=== PATIENT | female | born 1965 | race Caucasian/White ===

== ENCOUNTER → 2018-02-13 | Outpatient (CLI) | payer SELFPAY ==
[~2018-02-13] MED LIST: GBPN400C PO; HYDR-91 PO; HYDR118S10 PO; HYOS0.1216 PO; MELO-195 PO; NITR100C3 PO; PHEN200T27 PO; TRAM50TA2 PO
--- NOTE | 2018-02-13 12:52 | Diagnostic Imaging Report ---
PROCEDURE: MRI lumbar spine. TECHNIQUE: Multiplanar, multisequence MRI of the lumbar spine was performed without contrast. INDICATION: Chronic low back pain and bilateral leg pain with numbness and tingling. FINDINGS: There is some straightening of the normal lumbar lordosis. The vertebral body heights are well maintained. There is no spondylolysis or spondylolisthesis. No fractures are identified. Conus medullaris is seen at L1 and is normal in appearance. T12-L1 disc is unremarkable. At L1-L2, there is loss of disc height and signal intensity with some minimal annular bulging. There is slight effacement of the ventral thecal sac; however, no significant neuroforaminal encroachment. The L2-L3 disc is normal in height, signal intensity, and morphology. At L3-L4, there is slight loss of disc height and signal intensity with some minimal annular bulging. There is slight effacement of the ventral thecal sac and some minimal neuroforaminal encroachment. At L4-L5, there is broad-based annular bulging, facet disease, and thickening of the ligamentum flavum. There is some mild central spinal stenosis with some encroachment upon the lateral recess bilaterally. There is moderate right and mild left neuroforaminal encroachment. At L5-S1, there is broad-based annular bulging slightly more prominent in a left lateral distribution. There is encroachment upon the left lateral recess. There is mild right neuroforaminal encroachment and [id number] left neuroforaminal encroachment. The abdominal aorta is nonaneurysmal. The kidneys are unremarkable. IMPRESSION: Mild lumbar spondylosis and degenerative disc disease as detailed above. Dictated by: Dictated on workstation # [id number]
== END ==
LOC: RAD 10:55
PROVIDERS: ATTEND Nurse Practitioner Family
DX: M48.061 Spinal stenosis, lumbar region without neurogenic claudication (principal); M51.27 Other intervertebral disc displacement, lumbosacral region; M51.36 Other intervertebral disc degeneration, lumbar region
CPT/HCPCS: 72148

== ENCOUNTER → 2019-08-18 | Outpatient (CLI) | payer SELFPAY ==
--- NOTE | 2019-08-18 18:03 | Diagnostic Imaging Report ---
INDICATION: Chest pain. COMPARISON: None. FINDINGS: Frontal and lateral views of the chest demonstrate clear lungs bilaterally. The heart is normal. There is no pneumothorax. The osseous structures are age-appropriate. IMPRESSION: Negative chest. Dictated by: Dictated on workstation # [id number]
== END ==
LOC: RAD FS 17:10
PROVIDERS: ATTEND Nurse Practitioner Family
DX: R07.89 Other chest pain (principal)
CPT/HCPCS: 71046

== ENCOUNTER → 2019-11-13 | Outpatient (CLI) | payer BC ==
[~2019-11-13] MED LIST changes: +CATHETER FLUSH 10 ML SYR IV PRN; +HOLD METFORMIN - RECEIVED CONTRAST 20 ML VIAL IV SCH; +IOHEXOL 350 MG/ML 100 ML (OMNIPAQUE 350) VIAL IV ONE; +NS 100 ML (IVPB) BAG IV ONE
[2019-11-13 08:49] LABS: BUN/CREATININE RATIO 20; CARBON DIOXIDE 27 MMOL/L (21-32); CHLORIDE 104 MMOL/L (98-107); CREATININE SERUM 0.65 MG/DL (0.60-1.30); GFR ESTIMATED > 60; GLUCOSE 89 MG/DL (70-105); POTASSIUM 4.4 MMOL/L (3.6-5.0); SODIUM 141 MMOL/L (135-145)
--- NOTE | 2019-11-13 09:51 | Diagnostic Imaging Report ---
PROCEDURE: CT neck soft tissue with contrast. TECHNIQUE: Multiple contiguous axial images were obtained through the neck after the administration of contrast. Auto Exposure Controls were utilized during the CT exam to meet ALARA standards for radiation dose reduction. INDICATION: Palpable lump on the left side of neck in the submandibular region. COMPARISON: None available. FINDINGS: The bilateral parotid and submandibular glands are normal in appearance. Specifically, there is no surrounding inflammation or enlargement of the submandibular gland that would suggest sialoadenitis. There are no stones along the course of the salivary ducts to suggest sialolithiasis. Thyroid gland is normal in appearance. No cervical lymphadenopathy. There are a few subcentimeter level 1B (submandibular) lymph nodes which are likely physiologic/reactive in nature. The nasopharynx and uvula are normal in appearance. No mass within the base of the tongue. The oropharyngeal airway is normal in appearance. Hypopharynx is also unremarkable. No thickening of the epiglottis or aryepiglottic folds. The vocal folds are symmetric. Visualized aspects of the lung apices show centrilobular emphysema. No acute or concerning focal osseous lesion in the cervical spine. The patient is edentulous. No space-occupying mass or hydrocephalus within the visualized aspects of brain. Paranasal sinuses and mastoid air cells are clear. IMPRESSION: 1. No features of sialoadenitis or sialolithiasis of the submandibular gland. 2. No cervical lymphadenopathy or concerning soft tissue mass. 3. Emphysema. Dictated by: Dictated on workstation # [id number]
== END ==
LOC: RAD FS 08:01
PROVIDERS: ATTEND Pediatrics
DX: J43.9 Emphysema, unspecified (principal); R22.1 Localized swelling, mass and lump, neck
CPT/HCPCS: 36415; 70491; 80048

== ENCOUNTER → 2020-01-12 | Outpatient (CLI) | payer OTHER ==
[~2020-01-12] MED LIST changes: -CATHETER FLUSH 10 ML SYR IV PRN; -HOLD METFORMIN - RECEIVED CONTRAST 20 ML VIAL IV SCH; -IOHEXOL 350 MG/ML 100 ML (OMNIPAQUE 350) VIAL IV ONE; -NS 100 ML (IVPB) BAG IV ONE
--- NOTE | 2020-01-12 10:11 | Diagnostic Imaging Report ---
INDICATION: Right hand injury. 3 views of the right hand shows some soft tissue swelling over the dorsal aspect of the heads of the metatarsals. There is no fracture, dislocation or radiopaque foreign objects seen. IMPRESSION: Soft tissue swelling. No acute osseous abnormality seen. Dictated by: Dictated on workstation # [id number]
--- NOTE | 2020-01-12 10:12 | Diagnostic Imaging Report ---
Right wrist at 9:48. INDICATION: Injury, wrist pain. FINDINGS: 3 views were obtained. There are no prior studies available for comparison. There is no fracture, dislocation or acute bony abnormality evident. There is mild degenerative disease of the radiocarpal joint. The soft tissues are unremarkable. There is no sign of a radiopaque foreign body. IMPRESSION: There is no evidence for an acute bony abnormality. Dictated by: Dictated on workstation # [id number]
== END ==
LOC: RAD FS 09:38
PROVIDERS: ATTEND Nurse Practitioner
DX: S69.91XA Unspecified injury of right wrist, hand and finger(s), initial encounter (principal); X58.XXXA Exposure to other specified factors, initial encounter
CPT/HCPCS: 73110; 73130

== ENCOUNTER 2020-02-02 12:14 | Emergency (ER) | payer OTHER ==
[~2020-02-02] VITALS: Ht 160 cm; Wt 72.2 kg
[2020-02-02] MEDS ORDERED: LIDOCAINE 1% INJ 20 ML 20 ML VIAL INJ ONE (12:45)
--- NOTE | 2020-02-02 13:10 | Diagnostic Imaging Report ---
INDICATION: Traumatic injury to the finger. COMPARISON: 01/12/2020. FINDINGS: Three radiographic views of the right hand were obtained. There has been partial interval amputation of the distal third digit. This primarily involves the distal soft tissues, although there are small mildly displaced fracture fragments likely arising from the tuft of the distal phalanx. Joint spaces are maintained. No unexpected radiopaque foreign bodies are seen. IMPRESSION: 1. Partial amputation of the distal third digit with small mildly displaced fracture fragments of the distal phalanx. Dictated by: Dictated on workstation # [id number]
[2020-02-02] MEDS ORDERED: OXYC-464 (13:16)
[2020-02-02] MEDS ORDERED: celebrex (13:17)
[2020-02-02] MEDS ORDERED: LISI10TA2 (13:17)
--- NOTE | 2020-02-02 13:21 | ED Upper Extremity ---
General Chief Complaint: Trauma-Non Activation Stated Complaint: WC RT FINGER AMPUTATION Nursing Triage Note: Pt presents to ED from work reporting smashing injury 3rd digit right hand around 1215 at [employer]. Finger smashed in hydraulic punch press. Nursing Sepsis Screen: No Definite Risk Source: patient Exam Limitations: no limitations History of Present Illness Date Seen by Provider: Feb 02, 2020 Time Seen by Provider: 12:20 Initial Comments The pt is a 54 y/o female who presents for evaluation of a right third finger injury sustained at work. She states her hand was caught in a hydraulic punch press. The finger was in a glove at the time and is currently stuck in the glove. The pt reports being UTD with her tetanus. She has no other injuries or complaints. Location Injury Occurred: Pt injured at [employer] at work Severity: severe Pain/Injury Location: right 3rd finger Method of Injury: direct blow Allergies and Home Medications Allergies Coded Allergies: Penicillins (Unverified Allergy, HIVES, 01/12/13) Home Medications Gabapentin 400 Mg Cap, 400 MG PO DAILY, (Reported) Patient Home Medication List Home Medication List Reviewed: Yes Review of Systems Constitutional: no symptoms reported EENTM: no symptoms reported Respiratory: no symptoms reported Cardiovascular: no symptoms reported Gastrointestinal: no symptoms reported Genitourinary: no symptoms reported Musculoskeletal: other (right third finger partially amputated) Skin: no symptoms reported Psychiatric/Neurological: No Symptoms Reported All Other Systems Reviewed Negative Unless Noted: Yes Past Dyumset-Rpakjg-Elthun Hx Past Med/Social Hx: Reviewed Nursing Past Med/Soc Hx Patient Social History Alcohol Use: Denies Use Recreational Drug Use: No Smoking Status: Current Everyday Smoker Type Used: Cigarettes 2nd Hand Smoke Exposure: Yes Recent Foreign Travel: No Contact w/Someone Who Travel: No Recent Infectious Disease Expo: No Recent Hopitalizations: No Physical Abuse: No Sexual Abuse: No Mistreated: No Fear: No Immunizations Up To Date Tetanus Booster (TDap): Less than 5yrs Date of Influenza Vaccine: Sep 25, 2019 Seasonal Allergies Seasonal Allergies: No Past Medical History Surgeries: Yes (Partial Hyst) Hysterectomy, Tonsillectomy Respiratory: No Cardiac: No Neurological: No Reproductive Disorders: No Genitourinary: No Gastrointestinal: No Musculoskeletal: Yes (ARTHRITIS, FIBROMYALGIA) Endocrine: Yes Diabetes, Non-Insulin dep HEENT: No Cancer: No Psychosocial: No Integumentary: No Blood Disorders: No Physical Exam Vital Signs Vital Signs - First Documented Capillary Refill : Less Than 3 Seconds Height, Weight, BMI Height: '" Weight: lbs. oz. kg; 28.00 BMI Method: General Appearance: WD/WN, no apparent distress HEENT: PERRL/EOMI, pharynx normal Neck: non-tender, full range of motion Cardiovascular: regular rate, rhythm, no edema, no murmur Respiratory: lungs clear, normal breath sounds, no respiratory distress Elbow/Forearm: normal inspection, non-tender, no evidence of injury, normal ROM Wrist: Yes normal inspection, Yes non-tender, Yes no evidence of injury, Yes normal ROM Hand: Right, laceration (open fracture with partial amputation to right 3rd digit distal to DIP joint, nail completely avulsed, minimal bleeding) Neurologic/Psychiatric: no motor/sensory deficits, alert, normal mood/affect, oriented x 3 Skin: normal color, warm/dry Procedures/Interventions Additional Procedures: Digital Block Progress A 3 sided digital block was performed on the right third digit to provide comfort. 1% lidocaine without epinephrine was utilized. And tolerated the procedure very well and achieved complete anesthesia of the finger. Progress/Results/Core Measures Results/Orders My Orders Orders - ÁNGEL SANCHEZ DO Lidocaine 1% Inj 20 Ml (Xylocaine 1% Inj (02/02/20 12:45) Finger(S) (02/02/20 12:53) Cefazolin Injection (Ancef Injection) (02/02/20 13:30) Medications Given in ED Current Medications Medications Dose Ordered Sig/Peyman Route Start Time Stop Time Status Last Admin Dose Admin Lidocaine HCl 20 ml ONCE ONCE INJ 02/02/20 12:45 02/02/20 12:46 DC 02/02/20 12:50 20 ML Vital Signs/I&O 02/02/20 02/02/20 12:25 12:25 Temp 36.4 36.4 Pulse 97 97 Resp 20 20 B/P (MAP) 182/97 (125) 182/97 (125) Pulse Ox 99 99 O2 Delivery Room Air Room Air Blood Pressure Mean: 125 Progress Progress Note : Progress Note @1345 - the patient has an open fracture on the partial amputation of the right third finger. The wound has been cleaned and her finger was blocked with 1% lidocaine for comfort. She was given 2 g of Ancef. Patient prefers to be transferred to a facility with a hand specialist which is completely reasonable. I discussed the case with your physician in Dr. Schulte at [facility] who accepts the ER to ER transfer. The patient's IV will be discontinued prior to transfer by private vehicle. Diagnostic Imaging Diagonstic Imaging: Xray Comments [facility], [place] NAME: FLORENCIO CONTRERAS [facility] REC#: [id number] PT STATUS: REG ER : 1965 PHYSICIAN: ÁNGEL SANCHEZ DO ADMIT DATE: 02/02/20/ER FS Draft Date of Exam:02/02/20 FINGER(S) INDICATION: Traumatic injury to the finger. COMPARISON: 01/12/2020. FINDINGS: Three radiographic views of the right hand were obtained. There has been partial interval amputation of the distal third digit. This primarily involves the distal soft tissues, although there are small mildly displaced fracture fragments likely arising from the tuft of the distal phalanx. Joint spaces are maintained. No unexpected radiopaque foreign bodies are seen. IMPRESSION: 1. Partial amputation of the distal third digit with small mildly displaced fracture fragments of the distal phalanx. Dictated on workstation # [id number] Dict: 02/02/20 1307 Trans: 02/02/20 1310 [facility] [id number] Interpreted by: DARWIN MAN MD Electronically signed by: Departure Impression Primary Impression: Partial traumatic amputation of right middle finger through phalanx Disposition: XFER SHT-TRM HOSP Condition: Stable Transfer Transfer Reason: Exceeds level of care Time Spoke to Accepting Phy: 13:[address] Schulte (ER physician) accepts the ER-to-ER transfer to [facility] who has hand specialist available Transfer Time: 14:10 Transfer Facility: [facility] Method of Transfer: Private Vehicle Departure-Patient Inst. Decision time for Depature: 14:10 Referrals: LEOPOLDO HILARIO MD (PCP/Family) Primary Care Physician ÁNGEL SANCHEZ DO Feb 02, 2020 13:21
[2020-02-02] MEDS ORDERED: ceFAZolin INJECTION 2,000 MG in WATER (STERILE) FOR INJECTION 10 ML IV ONE (13:30)
--- NOTE | 2020-02-02 14:05 | NUR ---
Pt transferred per POV to [facility] ER from this ER. Pt stable reporting the pain is better after her digital block and the arm is now elevated up instead of down soaking. Dsg intact wet to dry with tubular gauze as slight pressure. Ample supply of extra 4X4's provided for any soak thru in route for added pressure re-enforcement. Pt verbalizes understanding. Pt has had the HR staff member from her employment here in ED with her.
[2020-02-02 14:30] VITALS: BP 128/64
--- OUTSIDE RECORDS SUMMARY | 2020-02-04 14:54 | XMS REPORT ---
Author Author Caitie COPE [facility] Address [address] [place] [address] Care Team Providers Care Cnc Operator Name Role Phone SUMEET COPE Unavailable PROBLEMS Type Condition ICD9-CM Code UCF48-OO Code Onset Dates Condition S tatus SNOMED Code Problem Restless leg syndrome G25.81 Active 14361844 Problem Vitamin D deficiency E55.9 Active 83295564 Problem Fibromyalgia M79.7 Active 9287894 7 Problem Degenerative disc disease, lumbar M51.36 Active 37418995 Problem Migraines G43.909 Active 38176122 Problem HTN (hypertension) I10 Active 3 4625145 Problem Muscle spasms of both lower extremities M62.838 Active 814461972 Problem OAB (overactive bladder) N32.81 Activ e 138380254 Problem Chronic pain disorder G89.4 Active 613817232 Problem Overweight (BMI 25.0-29.9) E66.3 Act ramana 534367797 Problem Anxiety F41.9 Active 91677791 Problem Angina at rest I20.8 Active 91648 8000 Problem Hyperlipemia E78.5 Active 3052832 4 Problem Chronic, continuous use of opioids F11.90 Active 394422828 Problem Type 2 diabetes mellitus wit h hyperglycemia, without long-term current use of insulin E11.65 Active 26596203 Problem Type 2 diabetes mellitus wit h diabetic polyneuropathy, without long-term current use of insulin E11.42 Active 66568 006 Problem Chronic tension-type headache, intractable G44.221 Active 474290512 ALLERGIES Substance Reaction Event Type Date Status Amoxicillin hives Drug Allergy Jan, Active tape rash Non Drug Allergy Jan, Active ENCOUNTERS Encounter Location Date Diagnosis [address] [place] [address] Nov, [address] [place] [address] Oct, Fibromyalgia M79.7 [facility] [address] [id number] [place] [address] Oct, Angina at rest I20.[address] [place] [address] Sep, Fibromyalgia M79.7 [address] [place] [address] Sep, Fibromyalgia M79.7 [address] [place] [address] Aug, Fibromyalgia M79.7 and Muscu loskeletal chest pain R07.[address] [place] [address] Aug, [address] [place] [address] Aug, Acute cystitis with hematuri a N30.[address] [place] [address] Jul, [address] [place] [address] Jul, Degenerative disc disease, l umbar M51.36 ; Fibromyalgia M79.7 and Musculoskeletal chest pain R07.[address] [place] [address] Jul, Chronic pain disorder G89.4 [address] [place] [address] Jun, Fibromyalgia M79.7 [facility] [address] [id number] [place] [address] Jun, [address] [place] [address] Jun, Chronic pain disorder G89.4 [address] [place] [address] May, Fibromyalgia M79.7 and Chron ic pain disorder G89.4 [address] [place] [address] May, Adverse effect of drug, init ial encounter T50.905A and Acute conjunctivitis of both eyes, unspecified acute conjunctivitis type H10.33 [address] [place] [address] Apr, [address] [place] [address] Apr, [address] [place] [address] Apr, Type 2 diabetes mellitus wit h hyperglycemia, without long-term current use of insulin E11.65 and Hyperlipemia E78.5 [address] [place] [address] Apr, Fibromyalgia M79.7 ; High ri sk medications (not anticoagulants) long-term use Z79.899 ; Chronic pain disorder G89.4 ; Type 2 diabetes mellitus with diabetic polyneuropathy, without long-term current use of insulin E11.42 ; HTN (hypertension) I10 and Hyperlipemia E78.[address] [place] [address] 17 Apr, 2019 Degenerative disc disease, l umbar M51.36 [facility] [address] [place] [address] Apr, Drug screening, pre-employme nt Z02.1 [address] [place] [address] March, [facility] [address] [facility] [id number] [place] [address] March, HTN (hypertension) I10 ; Hyperlipemia E7 8.5 ; Type 2 diabetes mellitus with hyperglycemia, without long-term current use of insulin E11.65 and Degenerative disc disease, lumbar M51.36 [facility] [address] [place] [address] March, Degenerative disc disease, l umbar M51.36 [facility] [address] [facility] [place] [address] March, [facility] [address] [id number] [place] [address] Feb, [facility] [address] [facility] [place] [address] Feb, Degenerative disc disease, lumbar M51.[address] [place] [address] Feb, Degenerative disc disease, l umbar M51.[address] [place] [address] Feb, Degenerative disc disease, l umbar M51.36 [facility] [address] [facility] [place] [address] Feb, [address] [place] [address] Feb, [address] [place] [address] Feb, [address] [place] [address] Jan, Screening mammogram, encount er for Z12.[address] [place] [address] Jan, Urine frequency R35.0 ; Dege nerative disc disease, lumbar M51.36 and Encounter for Papanicolaou smear for cervical cancer screening Z12.[address] [place] [address] Jan, Fibromyalgia M79.[address] [place] [address] Jan, [address] [place] [address] Jan, Degenerative disc disease, l umbar M51.36 and Fibromyalgia M79.7 [facility] [address] [place] [address] Jan, [address] [place] [address] Jan, [address] [place] [address] Jan, Degenerative disc disease, l umbar M51.36 ; Fibromyalgia M79.7 and Type 2 diabetes mellitus with diabetic polyneuropathy, without long- term current use of insulin E11.42 [facility] [address] [place] [address] Dec, [address] [place] [address] Dec, [address] [place] [address] Dec, Fibromyalgia M79.7 [address] [place] [address] Dec, [id number] [place] [address] Dec, [address] [place] [address] Dec, Degenerative disc disease, l umbar M51.36 ; HTN (hypertension) I10 ; Chronic pain disorder G89.4 ; Hyperlipemia E78.5 and Type 2 diabetes mellitus with diabetic polyneuropathy, without long-term current use of insulin E11.42 [address] [address] Dec, Chronic pain disorder G89.4 [id number] [place] [address] Dec, Chronic pain disorder G89.4 [address] [address] Nov, Fibromyalgia M79.7 [address] [address] Nov, [address] [address] Nov, Fibromyalgia M79.7 ; Degenerative disc d isease, lumbar M51.36 and Type 2 diabetes mellitus with hyperglycemia, without long-term current use of insulin E11.65 [address] [address] Oct, Degenerative disc disease, lumbar M51.36 [address] [address] 08 Sep, 2018 Fibromyalgia M79.7 ; Degenerative disc d isease, lumbar M51.36 and Restless leg syndrome G25.81 [address] [address] Sep, Fibromyalgia M79.7 [address] [address] Sep, [address] [address] Aug, [address] [address] Aug, Chronic pain disorder G89.4 [address] [address] 14 Jul, 2018 HTN (hypertension) I10 ; Type 2 diabetes mellitus with hyperglycemia, without long-term current use of insulin E11.65 ; Overweight (BMI 25.0-29.9) E66.3 ; Fibromyalgia M79.7 ; Restless leg syndrome G25.81 ; Chronic pain disorder G89.4 ; Hyperlipemia E78.5 and Angina at rest I20.8 [address] [address] 13 Jul, 2018 [address] [address] Jul, Restless leg syndrome G25.81 [address] [address] Jun, Fibromyalgia M79.7 [address] [address] Jun, Chronic pain disorder G89.4 [address] [address] Jun, [address] [address] May, [address] [address] May, Vitamin D deficiency E55.9 [address] [address] May, Vitamin D deficiency E55.[id number] [place] [address] May, Chronic pain disorder G89.4 [address] [address] May, Chronic pain disorder G89.4 [address] [address] Apr, Chronic pain disorder G89.4 [address] [address] Apr, Type 2 diabetes mellitus with diabetic p olyneuropathy, without long- term current use of insulin E11.42 ; HTN (hypertension) I10 ; Hyperlipemia E78.5 ; Fibromyalgia M79.7 ; Degenerative disc disease, lumbar M51.36 ; Chronic pain disorder G89.4 ; Chronic, continuous use of opioids F11.90 ; Vitamin D deficiency E55.9 ; Anxiety F41.9 ; Chronic tension-type headache, intractable G44.221 and Overweight (BMI 25.0-29.9) E66.3 [address] [address] March, Chronic pain disorder G89.4 [address] [address] March, Type 2 diabetes mellitus with diabetic p olyneuropathy, without long- term current use of insulin E11.42 [address] [address] Feb, Chronic pain disorder G89.4 [address] [address] Jan, [address] [address] Jan, Pharyngitis, unspecified etiology J02.9 ; Fibromyalgia M79.7 and Chronic pain disorder G89.4 [address] [address] Jan, [address] [address] Jan, [address] [address] Jan, [address] [address] Jan, Type 2 diabetes mellitus with diabetic p olyneuropathy, without long- term current use of insulin E11.42 ; Type 2 diabetes mellitus with hyperglycemia, without long-term current use of insulin E11.65 ; Degenerative disc disease, lumbar M51.36 ; Fibromyalgia M79.7 ; Restless leg syndrome G25.81 ; HTN (hypertension) I10 ; Hyperlipemia E78.5 ; Anxiety F41.9 ; Migraines G43.909 and High risk medication use Z79.899 [address] [address] Dec, Chronic pain disorder G89.4 [address] [address] Nov, Chronic pain disorder G89.4 [address] [address] Nov, [address] [address] Nov, Type 2 diabetes mellitus with hyperglyce wayne, without long-term current use of insulin E11.65 ; HTN (hypertension) I10 ; Hyperlipemia E78.5 ; Restless leg syndrome G25.81 ; Fibromyalgia M79.7 ; Chronic tension-type headache, intractable G44.221 ; Migraines G43.909 ; Chronic pain disorder G89.4 and Overweight (BMI 25.0-29.9) E66.[address] [address] Nov, [address] [address] Oct, Degenerative disc disease, lumbar M51.[address] [address] Sep, Degenerative disc disease, lumbar M51.[address] [address] Sep, [address] [address] Aug, Degenerative disc disease, lumbar M51.[address] [address] Aug, Fall from height of greater than 3 feet W19.XXXA ; Hematoma of left hip, subsequent encounter S70.02XD ; Fibromyalgia M79.7 ; Muscle spasms of both lower extremities M62.838 ; Anxiety F41.9 ; Degenerative disc disease, lumbar M51.36 ; Chronic pain disorder G89.4 and Chronic, continuous use of opioids F11.[address] [address] Jul, [address] [address] Jul, Degenerative disc disease, lumbar M51.36 [facility] [address] [address] Jun, Degenerative disc disease, lumbar M51.36 [facility] [address] [address] May, Degenerative disc disease, lumbar M51.36 [facility] [address] [address] May, [facility] [address] [address] Apr, Degenerative disc disease, lumbar M51.36 [facility] [address] [address] Apr, Degenerative disc disease, lumbar M51.36 [facility] [address] [address] March, Degenerative disc disease, lumbar M51.36 and Fall (on) (from) other stairs and steps, initial encounter W10.8XXA [facility] [address] [address] March, [facility] [address] [address] March, [facility] [address] [address] March, [facility] [address] [address] March, [facility] [address] [address] Feb, [facility] [address] [address] Jan, Fibromyalgia M79.7 [facility] [address] [address] Jan, [facility] [address] [address] Dec, Degenerative disc disease, lumbar M51.36 [facility] [address] [address] Dec, [facility] [address] [address] Nov, Degenerative disc disease, lumbar M51.36 ; Fibromyalgia M79.7 ; Restless leg syndrome G25.81 ; HTN (hypertension) I10 ; Hyperlipemia E78.5 ; Chronic tension-type headache, intractable G44.221 and OAB (overactive bladder) N32.81 [address] [address] Nov, [facility] [address] [address] Oct, [facility] [id number] [place] [address] Oct, [address] [address] Oct, [facility] [address] [address] Sep, [facility] [address] [address] Aug, [facility] [id number] [place] [address] Aug, [facility] [address] [address] Aug, Degenerative disc disease, lumbar M51.36 [facility] [address] [address] Aug, Degenerative disc disease, lumbar M51.36 ; Fibromyalgia M79.7 ; Migraines G43.909 ; Hyperlipemia E78.5 ; Muscle spasms of both lower extremities M62.838 ; Chronic tension-type headache, intractable G44.221 ; HTN (hypertension) I10 and Restless leg syndrome G25.81 [facility] [address] [address] Jul, [facility] [address] [address] Jul, [facility] [address] [address] Jul, [facility] [address] [address] Jun, Chronic tension-type headache, intractab le G44.221 ; Muscle spasms of both lower extremities M62.838 ; Fibromyalgia M79.7 ; Degenerative disc disease, lumbar M51.36 ; Restless leg syndrome G25.81 ; Migraines G43.909 ; Hyperlipemia E78.5 and Anxiety F41.9 [facility] [address] [address] Jun, [facility] [address] [address] Jun, [facility] [address] [address] Jun, [facility] [address] [address] Jun, [facility] [address] [address] May, Sebaceous cyst L72.3 [facility] [address] [address] May, Low back pain M54.5 [facility] [address] [address] Apr, [facility] [address] [address] Apr, Fibromyalgia M79.7 [facility] [address] [address] Apr, Degenerative disc disease, lumbar M51.36 ; Fibromyalgia M79.7 ; Migraines G43.909 ; Hyperlipemia E78.5 ; Restless leg syndrome G25.81 ; Other intractable trigeminal autonomic cephalgia (TAC) G44.091 ; Secondary hypertension I15.9 and Anxiety F41.9 [address] [address] March, Other shelter (current) drug therapy Z 79.899 and HTN (hypertension) I10 [address] [address] March, Fibromyalgia M79.7 [address] [address] Feb, [address] [address] Feb, [address] [address] Feb, [address] [address] Feb, Hyperlipemia E78.5 [address] [address] Feb, Migraines G43.909 ; Fibromyalgia M79.7 ; Degenerative disc disease, lumbar M51.36 ; Restless leg syndrome G25.81 ; HTN (hypertension) I10 and Tobacco abuse counseling Z71.6 [address] [address] Feb, [address] [address] Jan, [address] [address] Jan, [address] [address] Dec, [address] [address] Dec, Degenerative disc disease, lumbar M51.36 ; Restless leg syndrome G25.81 ; Migraines G43.909 ; HTN (hypertension) I10 ; Fibromyalgia M79.7 and Other shelter (current) drug therapy Z79.899 [facility] [address] [address] Dec, [facility] [address] [address] Nov, [facility] [address] [address] Nov, [facility] [address] [address] Oct, [facility] [address] [address] Oct, [facility] [address] [address] Oct, [facility] [address] [address] Sep, [facility] [address] [address] Sep, Routine gynecological examination V72.31 ; Degenerative disc disease, lumbar M51.36 ; Fibromyalgia M79.7 ; Restless leg syndrome G25.81 ; Migraines G43.909 and Well woman exam Z01.419 [facility] [address] [address] Sep, [facility] [address] [address] Aug, [facility] [address] [address] Aug, Migraines G43.909 ; Degenerative disc di sease, lumbar M51.36 ; Fibromyalgia M79.7 ; Restless leg syndrome G25.81 and HTN (hypertension) I10 [facility] [address] [address] Aug, [facility] [id number] [place] [address] Aug, [facility] [address] [address] Jul, [facility] [address] [address] Jul, [facility] [address] [address] Jun, Fibromyalgia 729.1 ; Lumbago 724.2 ; Res tless leg syndrome 333.94 ; Migraines 346.90 and Elevated blood pressure (not hypertension) 796.2 [facility] [address] [address] May, Fibromyalgia 729.1 ; Nontoxic uninodular goiter 241.0 ; Lumbago 724.2 ; Restless leg syndrome 333.94 and Migraines 346.90 [facility] [address] [address] Feb, [facility] [address] [address] Feb, [facility] [address] [address] Jan, [facility] [address] [address] Jan, [facility] [address] [address] Jan, [facility] [address] [address] Jan, [facility] [address] [address] Jan, [facility] [address] [address] Jan, [facility] [address] [address] Jan, [facility] [address] [place] [address] Jan, [facility] [id number] [place] [address] Dec, 2014 [facility] [id number] [place] [address] Dec, 2014 [facility] [id number] [place] [address] Dec, 2014 [facility] [address] [address] Dec, 2014 [facility] [address] [address] Dec, 2014 [facility] [address] [address] Dec, 2014 [facility] [address] [address] Dec, 2014 [facility] [address] [address] Dec, 2014 [facility] [id number] [place] [address] Dec, [facility] [address] [address] Dec, [facility] [address] [address] Dec, [facility] [id number] [place] [address] Nov, [facility] [address] [address] Nov, IMMUNIZATIONS No Known Immunizations SOCIAL HISTORY Never Assessed REASON FOR VISIT Well Woman Exam, lower Rt side Abd pain, needs med refill.Fern BUENO PLAN OF CARE Activity Details Follow Up 1 Year Reason: VITAL SIGNS Height 62 in 2019-02-18 Weight 159 lbs 2019-02-18 Temperature 98.2 degrees Fahrenheit 2019-02-18 Heart Rate 85 bpm 2019-02-18 Respiratory Rate 18 2019-02-18 BMI 29.08 kg/m2 2019-02-18 Blood pressure systolic 140 mmHg 2019-02-18 Blood pressure diastolic 92 mmHg 2019-02-18 MEDICATIONS Medication Instructions Dosage Frequency Start Date End Date Duration S tatus Glucocard Expression Test - subcutaneously 2 times a day test 2 times per day 12h Nov, 30 days Active Gabapentin 400 mg Orally 3 times a day 1 capsule 8h 28 Active Crestor 10 MG Orally Once a day 4 tablets 24h Jan, Active Meloxicam 15 mg Orally Once a day 1 tablet 24h Active Hydrocodone-Acetaminophen 10-325 MG Orally every 6 hrs 1 tablet as needed 6h Jan, 28 days Active Propranolol HCl 10 mg Orally Twice a day 1 tablet 12h Apr, Active Lisinopril 10 mg Orally Once a day 1 tablet 24h Active MetFORMIN HCl ER 500 mg Orally daily 1 tablet with evening meal 24h Nov, Active RESULTS No Results PROCEDURES Procedure Date Ordered Result Body Site Bacterial Vaginosis In House February 18, 2019 URINALYSIS, AUTO, W/O SCOPE February 18, 2019 INSTRUCTIONS MEDICATIONS ADMINISTERED No Known Medications MEDICAL (GENERAL) HISTORY Type Description Date Medical History fibromyalgia Medical History degenerative disk disease Medical History degenerative arthritis Medical History Diabetes Type 2 Medical History htn Medical History cholesterol Medical History anxiety Surgical History parital hysterectomy 1986 Surgical History several lymph nodes removed- neck Surgical History tonsillectomy Surgical History tubal ligation Hospitalization History surgery Hospitalization History childbirth Hospitalization History [facility]
--- OUTSIDE RECORDS SUMMARY | 2020-02-04 14:54 | XMS REPORT ---
Author Author Caitie COPE Organization [facility] Address [address] [place] [address] Care Team Providers Care Relief Cook Name Role Phone SUMEET COPE Unavailable PROBLEMS Type Condition ICD9-CM Code QNI69-BN Code Onset Dates Condition S tatus SNOMED Code Problem Restless leg syndrome G25.81 Active 24023869 Problem Vitamin D deficiency E55.9 Active 40362003 Problem Fibromyalgia M79.7 Active 4935647 7 Problem Degenerative disc disease, lumbar M51.36 Active 07638034 Problem Migraines G43.909 Active 49767584 Problem HTN (hypertension) I10 Active 3 9749626 Problem Muscle spasms of both lower extremities M62.838 Active 361118007 Problem OAB (overactive bladder) N32.81 Activ e 534132342 Problem Chronic pain disorder G89.4 Active 790402077 Problem Overweight (BMI 25.0-29.9) E66.3 Act ramana 363458625 Problem Anxiety F41.9 Active 35366524 Problem Angina at rest I20.8 Active 91606 8000 Problem Hyperlipemia E78.5 Active 2874428 4 Problem Chronic, continuous use of opioids F11.90 Active 518781431 Problem Type 2 diabetes mellitus wit h hyperglycemia, without long-term current use of insulin E11.65 Active 37475945 Problem Type 2 diabetes mellitus wit h diabetic polyneuropathy, without long-term current use of insulin E11.42 Active 46126 006 Problem Chronic tension-type headache, intractable G44.221 Active 173196407 ALLERGIES No Information ENCOUNTERS Encounter Location Date Diagnosis [facility] [address] [facility] [address] [place] [address] Dec, [facility] [address] [facility] [address] [place] [address] 18 Dec, 2019 Injury of right hand, initia l encounter S69.91XA and Drug screening, pre-employment Z02.1 [address] [place] [address] Nov, [address] [place] [address] Oct, Fibromyalgia M79.7 [facility] [address] [id number] [place] [address] Oct, Angina at rest I20.[address] [place] [address] Sep, Fibromyalgia M79.7 [address] [place] [address] Sep, Fibromyalgia M79.7 [address] [place] [address] Aug, Fibromyalgia M79.7 and Muscu loskeletal chest pain R07.[address] [place] [address] Aug, [address] [place] [address] Aug, Acute cystitis with hematuri a N30.[address] [place] [address] Jul, [address] [place] [address] Jul, Degenerative disc disease, l umbar M51.36 ; Fibromyalgia M79.7 and Musculoskeletal chest pain R07.[address] [place] [address] Jul, Chronic pain disorder G89.4 [address] [place] [address] Jun, Fibromyalgia M79.7 [facility] [address] [id number] [place] [address] Jun, [facility] [address] [place] [address] Jun, Chronic pain disorder G89.4 [address] [place] [address] May, Fibromyalgia M79.7 and Chron ic pain disorder G89.4 [address] [place] [address] May, Adverse effect of drug, init ial encounter T50.905A and Acute conjunctivitis of both eyes, unspecified acute conjunctivitis type H10.33 [address] [place] [address] Apr, [address] [place] [address] Apr, [address] [place] [address] Apr, Type 2 diabetes mellitus wit h hyperglycemia, without long-term current use of insulin E11.65 and Hyperlipemia E78.5 [address] [place] [address] Apr, Fibromyalgia M79.7 ; High ri sk medications (not anticoagulants) long-term use Z79.899 ; Chronic pain disorder G89.4 ; Type 2 diabetes mellitus with diabetic polyneuropathy, without long-term current use of insulin E11.42 ; HTN (hypertension) I10 and Hyperlipemia E78.[address] [place] [address] Apr, Degenerative disc disease, l umbar M51.36 [facility] [address] [place] [address] Apr, Drug screening, pre-employme nt Z02.1 [address] [place] [address] March, [facility] [address] [id number] [place] [address] March, HTN (hypertension) I10 ; Hyperlipemia E7 8.5 ; Type 2 diabetes mellitus with hyperglycemia, without long-term current use of insulin E11.65 and Degenerative disc disease, lumbar M51.36 [facility] [address] [place] [address] March, Degenerative disc disease, l umbar M51.36 [facility] [id number] [place] [address] March, [facility] [id number] [place] [address] Feb, [facility] [id number] [place] [address] Feb, Degenerative disc disease, lumbar M51.36 [address] [place] [address] Feb, Degenerative disc disease, l umbar M51.[address] [place] [address] Feb, Degenerative disc disease, l umbar M51.36 [facility] [address] [id number] [place] [address] Feb, [address] [place] [address] Feb, [address] [place] [address] Feb, [address] [place] [address] Jan, Screening mammogram, encount er for Z12.[address] [place] [address] Jan, Urine frequency R35.0 ; Dege nerative disc disease, lumbar M51.36 and Encounter for Papanicolaou smear for cervical cancer screening Z12.[address] [place] [address] Jan, Fibromyalgia M79.7 [facility] [address] [place] [address] Jan, [facility] [address] [place] [address] Jan, Degenerative disc disease, l umbar M51.36 and Fibromyalgia M79.7 [facility] [address] [place] [address] Jan, [facility] [address] [place] [address] Jan, [facility] [address] [place] [address] Jan, Degenerative disc disease, l umbar M51.36 ; Fibromyalgia M79.7 and Type 2 diabetes mellitus with diabetic polyneuropathy, without long- term current use of insulin E11.42 [facility] [address] [place] [address] Dec, [facility] [address] [place] [address] Dec, [facility] [address] [place] [address] Dec, Fibromyalgia M79.7 [address] [place] [address] Dec, [facility] [address] [facility] [place] [address] Dec, [address] [place] [address] Dec, Degenerative disc disease, l umbar M51.36 ; HTN (hypertension) I10 ; Chronic pain disorder G89.4 ; Hyperlipemia E78.5 and Type 2 diabetes mellitus with diabetic polyneuropathy, without long-term current use of insulin E11.42 [facility] [address] [address] Dec, Chronic pain disorder G89.4 [place] [address] [address] Dec, Chronic pain disorder G89.4 [place] [address] [address] Nov, Fibromyalgia M79.7 [place] [address] [address] Nov, [place] [address] [address] Nov, Fibromyalgia M79.7 ; Degenerative disc d isease, lumbar M51.36 and Type 2 diabetes mellitus with hyperglycemia, without long-term current use of insulin E11.65 [place] [address] [address] Oct, Degenerative disc disease, lumbar M51.36 [place] [address] [address] Sep, Fibromyalgia M79.7 ; Degenerative disc d isease, lumbar M51.36 and Restless leg syndrome G25.81 [place] [address] [address] Sep, Fibromyalgia M79.7 [place] [address] [address] Sep, [place] [address] [address] Aug, [place] [address] [address] Aug, Chronic pain disorder G89.4 [place] [address] [address] 14 Jul, 2018 HTN (hypertension) I10 ; Type 2 diabetes mellitus with hyperglycemia, without long-term current use of insulin E11.65 ; Overweight (BMI 25.0-29.9) E66.3 ; Fibromyalgia M79.7 ; Restless leg syndrome G25.81 ; Chronic pain disorder G89.4 ; Hyperlipemia E78.5 and Angina at rest I20.8 [place] [address] [address] 13 Jul, 2018 [place] [address] [address] Jul, Restless leg syndrome G25.81 [place] [address] [address] Jun, Fibromyalgia M79.7 [place] [address] [address] Jun, Chronic pain disorder G89.4 [place] [address] [address] Jun, [place] [address] [address] May, [place] [address] [address] May, Vitamin D deficiency E55.9 [place] [address] [address] May, Vitamin D deficiency E55.[address] [place] [address] May, Chronic pain disorder G89.4 [place] [address] [address] May, Chronic pain disorder G89.4 [place] [address] [address] Apr, Chronic pain disorder G89.4 [place] [address] [address] Apr, Type 2 diabetes mellitus with diabetic [...] intractable G44.221 and Overweight (BMI 25.0-29.9) E66.3 [place] [address] [address] March, Chronic pain disorder G89.4 [place] [address] [address] March, Type 2 diabetes mellitus with diabetic p olyneuropathy, without long- term current use of insulin E11.42 [place] [address] [address] Feb, Chronic pain disorder G89.4 [place] [address] [address] Jan, [place] [address] [address] Jan, Pharyngitis, unspecified etiology J02.9 ; Fibromyalgia M79.7 and Chronic pain disorder G89.4 [place] [address] [address] Jan, [place] [address] [address] Jan, [address] [address] Jan, [address] [address] Jan, Type 2 diabetes mellitus with diabetic [...] G43.909 and High risk medication use Z79.899 [place] [address] [address] Dec, Chronic pain disorder G89.4 [place] [address] [address] Nov, Chronic pain disorder G89.4 [place] [address] [address] Nov, [place] [address] [address] Nov, Type 2 diabetes mellitus with hyperglyce wayne, without long-term current use of insulin E11.65 ; HTN (hypertension) I10 ; Hyperlipemia E78.5 ; Restless leg syndrome G25.81 ; Fibromyalgia M79.7 ; Chronic tension-type headache, intractable G44.221 ; Migraines G43.909 ; Chronic pain disorder G89.4 and Overweight (BMI 25.0-29.9) E66.3 [place] [address] [address] Nov, [place] [address] [address] Oct, Degenerative disc disease, lumbar M51.[address] [address] Sep, Degenerative disc disease, lumbar M51.36 [place] [address] [address] Sep, [address] [address] Aug, Degenerative disc disease, lumbar M51.[address] [address] Aug, Fall from height of greater than 3 feet W19.XXXA ; Hematoma of left hip, subsequent encounter S70.02XD ; Fibromyalgia M79.7 ; Muscle spasms of both lower extremities M62.838 ; Anxiety F41.9 ; Degenerative disc disease, lumbar M51.36 ; Chronic pain disorder G89.4 and Chronic, continuous use of opioids F11.90 [place] [address] [address] 12 Jul, 2017 [facility] [address] [address] Jul, Degenerative disc disease, lumbar M51.36 [place] [address] [address] Jun, Degenerative disc disease, lumbar M51.36 [place] [address] [address] May, Degenerative disc disease, lumbar M51.36 [place] [address] [address] May, [place] [address] [address] Apr, Degenerative disc disease, lumbar M51.36 [place] [address] [address] Apr, Degenerative disc disease, lumbar M51.36 [place] [address] [address] March, Degenerative disc disease, lumbar M51.36 and Fall (on) (from) other stairs and steps, initial encounter W10.8XXA [place] [address] [address] March, [place] [address] [address] March, [place] [address] [address] March, [place] [address] [address] March, [place] [address] [address] Feb, [place] [address] [place] [address] Jan, Fibromyalgia M79.7 [facility] [id number] [place] [address] Jan, [facility] [id number] [place] [address] Dec, Degenerative disc disease, lumbar M51.36 [facility] [address] [address] Dec, [facility] [address] [address] Nov, Degenerative disc disease, lumbar M51.36 ; Fibromyalgia M79.7 ; Restless leg syndrome G25.81 ; HTN (hypertension) I10 ; Hyperlipemia E78.5 ; Chronic tension-type headache, intractable G44.221 and OAB (overactive bladder) N32.81 [facility] [id number] [place] [address] Nov, [facility] [id number] [place] [address] Oct, [facility] [id number] [place] [address] Oct, [address] [address] Oct, [facility] [id number] [place] [address] Sep, [facility] [id number] [place] [address] Aug, [facility] [id number] [place] [address] Aug, [facility] [address] [address] Aug, Degenerative disc disease, lumbar M51.36 [facility] [address] [address] Aug, Degenerative disc disease, lumbar M51.36 ; Fibromyalgia M79.7 ; Migraines G43.909 ; Hyperlipemia E78.5 ; Muscle spasms of both lower extremities M62.838 ; Chronic tension-type headache, intractable G44.221 ; HTN (hypertension) I10 and Restless leg syndrome G25.81 [facility] [address] [address] 29 Jul, 2016 [facility] [address] [address] Jul, [facility] [address] [address] Jul, [place] [address] [address] Jun, Chronic tension-type headache, intractab le G44.221 ; Muscle spasms of both lower extremities M62.838 ; Fibromyalgia M79.7 ; Degenerative disc disease, lumbar M51.36 ; Restless leg syndrome G25.81 ; Migraines G43.909 ; Hyperlipemia E78.5 and Anxiety F41.9 [place] [address] [address] Jun, [place] [address] [address] Jun, [place] [address] [address] Jun, [facility] [address] [address] Jun, [facility] [address] [address] May, Sebaceous cyst L72.3 [facility] [address] [address] May, Low back pain M54.5 [facility] [address] [address] Apr, [facility] [address] [address] Apr, Fibromyalgia M79.7 [facility] [address] [address] Apr, Degenerative disc disease, lumbar M51.36 ; Fibromyalgia M79.7 ; Migraines G43.909 ; Hyperlipemia E78.5 ; Restless leg syndrome G25.81 ; Other intractable trigeminal autonomic cephalgia (TAC) G44.091 ; Secondary hypertension I15.9 and Anxiety F41.9 [place] [address] [address] March, Other terminal operator (current) drug therapy Z 79.899 and HTN (hypertension) I10 [place] [address] [address] March, Fibromyalgia M79.7 [place] [address] [address] Feb, [place] [address] [address] Feb, [facility] [address] [address] Feb, [place] [address] [address] Feb, Hyperlipemia E78.5 [place] [address] [address] Feb, Migraines G43.909 ; Fibromyalgia M79.7 ; Degenerative disc disease, lumbar M51.36 ; Restless leg syndrome G25.81 ; HTN (hypertension) I10 and Tobacco abuse counseling Z71.6 [place] [address] [address] Feb, [place] [address] [address] Jan, [place] [address] [address] Jan, [place] [address] [address] Dec, [facility] [address] [address] Dec, Degenerative disc disease, lumbar M51.36 ; Restless leg syndrome G25.81 ; Migraines G43.909 ; HTN (hypertension) I10 ; Fibromyalgia M79.7 and Other prison (current) drug therapy Z79.899 [facility] [address] [address] Dec, [facility] [address] [address] Nov, [facility] [address] [address] Nov, [facility] [address] [address] Oct, [facility] [address] [address] Oct, [facility] [address] [address] Oct, [facility] [address] [address] Sep, [place] [address] [address] Sep, Routine gynecological examination V72.31 ; Degenerative disc disease, lumbar M51.36 ; Fibromyalgia M79.7 ; Restless leg syndrome G25.81 ; Migraines G43.909 and Well woman exam Z01.419 [facility] [address] [address] Sep, [facility] [address] [address] Aug, [facility] [address] [address] Aug, Migraines G43.909 ; Degenerative disc di sease, lumbar M51.36 ; Fibromyalgia M79.7 ; Restless leg syndrome G25.81 and HTN (hypertension) I10 [facility] [address] [address] Aug, [facility] [address] [address] Aug, [facility] [address] [address] Jul, [facility] [address] [address] Jul, [facility] [address] [address] Jun, Fibromyalgia 729.1 ; Lumbago 724.2 ; Res tless leg syndrome 333.94 ; Migraines 346.90 and Elevated blood pressure (not hypertension) 796.2 [facility] [address] [address] May, Fibromyalgia 729.1 ; Nontoxic uninodular goiter 241.0 ; Lumbago 724.2 ; Restless leg syndrome 333.94 and Migraines 346.90 [facility] [address] [address] Feb, [facility] [address] [address] Feb, [facility] [address] [address] Jan, [facility] [address] [address] Jan, [facility] [address] [address] Jan, [facility] [address] [address] Jan, [facility] [address] [address] Jan, [place] [address] [id number] [place] [address] Jan, [facility] [id number] [place] [address] Jan, [facility] [address] [id number] [place] [address] Jan, [facility] [id number] [place] [address] Dec, 2014 [facility] [id number] [place] [address] Dec, 2014 [facility] [id number] [place] [address] Dec, 2014 [facility] [id number] [place] [address] Dec, 2014 [facility] [id number] [place] [address] Dec, 2014 [facility] [id number] [place] [address] Dec, 2014 [facility] [id number] [place] [address] Dec, 2014 [facility] [id number] [place] [address] Dec, 2014 [facility] [id number] [place] [address] Dec, 2014 [facility] [id number] [place] [address] Dec, 2014 [facility] [id number] [place] [address] Dec, [facility] [id number] [place] [address] Nov, [facility] [id number] [place] [address] Nov, IMMUNIZATIONS No Known Immunizations SOCIAL HISTORY Never Assessed REASON FOR VISIT mammo, SQuick RT.R.M. PLAN OF CARE VITAL SIGNS MEDICATIONS Unknown Medications RESULTS Name Result Date Reference Range MAMMOGRAM : SCREENING 3D, BILATERAL (IN HOUS) 10-02-29 PROCEDURES Procedure Date Ordered Result Body Site BREAST TOMOSYNTHESIS BI February 20, 2019 INSTRUCTIONS MEDICATIONS ADMINISTERED No Known Medications [...] History surgery Hospitalization History childbirth Hospitalization History [facility] ER for migraine
--- OUTSIDE RECORDS SUMMARY | 2020-02-04 14:54 | XMS REPORT ---
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 Name Role Phone AMY ONTIVEROS Unavailable PROBLEMS Type Condition ICD9-CM Code [id number] Code Onset Dates Condition S tatus SNOMED Code Problem Restless leg syndrome G25.81 Active 22236964 Problem Vitamin D deficiency E55.9 Active 72854242 Problem Fibromyalgia M79.7 Active 0337893 7 Problem Degenerative disc disease, lumbar M51.36 Active 81043223 Problem Migraines G43.909 Active 55626464 Problem HTN (hypertension) I10 Active 3 6263416 Problem Muscle spasms of both lower extremities M62.838 Active 042316533 Problem OAB (overactive bladder) N32.81 Activ e 096206376 Problem Chronic pain disorder G89.4 Active 731771298 Problem Overweight (BMI 25.0-29.9) E66.3 Act ramana 036869273 Problem Anxiety F41.9 Active 79073017 Problem Angina at rest I20.8 Active 18532 8000 Problem Hyperlipemia E78.5 Active 3901607 4 Problem Chronic, continuous use of opioids F11.90 Active 019929607 Problem Type 2 diabetes mellitus wit h hyperglycemia, without long-term current use of insulin E11.65 Active 90547944 Problem Type 2 diabetes mellitus wit h diabetic polyneuropathy, without long-term current use of insulin E11.42 Active 40415 006 Problem Chronic tension-type headache, intractable G44.221 Active 364940459 ALLERGIES Substance Reaction Event Type Date Status Amoxicillin hives Drug Allergy Jan, Active tape rash Non Drug Allergy Jan, Active ENCOUNTERS Encounter Location Date Diagnosis [address] [address] May, Fibromyalgia M79.7 and Chronic pain diso rder G89.[address] [address] May, Adverse effect of drug, initial encounte r T50.905A and Acute conjunctivitis of both eyes, unspecified acute conjunctivitis type H10.[address] [address] Apr, [address] [address] Apr, [address] [address] Apr, Type 2 diabetes mellitus with hyperglyce wayne, without long-term current use of insulin E11.65 and Hyperlipemia E78.[address] [address] Apr, Fibromyalgia M79.7 ; High risk medicatio ns (not anticoagulants) long- term use Z79.899 ; Chronic pain disorder G89.4 ; Type 2 diabetes mellitus with diabetic polyneuropathy, without long-term current use of insulin E11.42 ; HTN (hypertension) I10 and Hyperlipemia E78.[address] [address] Apr, Degenerative disc disease, lumbar M51.36 [facility] [place] [address] [place] [address] Apr, Drug screening, pre-employment Z02.[address] [address] March, [place] [address] [facility] [id number] [address] [place] [address] March, HTN (hypertension) I10 ; Hyp erlipemia E78.5 ; Type 2 diabetes mellitus with hyperglycemia, without long-term current use of insulin E11.65 and Degenerative disc disease, lumbar M51.36 [facility] [address] [place] [place] [address] March, Degenerative disc disease, lumbar M51.36 [place] [address] [facility] [id number] [address] [place] [id number] March, [place] [address] [id number] [address] [address] Feb, [facility] [address] [id number] [address] [address] Feb, Degenerative disc disease, l umbar M51.[address] [place] [address] Feb, Degenerative disc disease, lumbar M51.[address] [place] [address] Feb, Degenerative disc disease, lumbar M51.36 [facility] [address] [id number] [address] [address] Feb, [address] [address] Feb, [address] [address] Feb, [address] [address] Jan, Screening mammogram, encounter for Z12.[address] [place] [address] Jan, Urine frequency R35.0 ; Degenerative dis c disease, lumbar M51.36 and Encounter for Papanicolaou smear for cervical cancer screening Z12.[address] [place] [address] Jan, Fibromyalgia M79.[address] [address] Jan, [address] [address] Jan, Degenerative disc disease, lumbar M51.36 and Fibromyalgia M79.[address] [address] Jan, [address] [address] Jan, [address] [address] Jan, Degenerative disc disease, lumbar M51.36 ; Fibromyalgia M79.7 and Type 2 diabetes mellitus with diabetic polyneuropathy, without long-term current use of insulin E11.[address] [address] Dec, [address] [address] Dec, [address] [address] Dec, Fibromyalgia M79.[address] [address] Dec, [facility] [address] [facility] [id number] [address] [place] [id number] Dec, [address] [address] Dec, Degenerative disc disease, lumbar M51.36 ; HTN (hypertension) I10 ; Chronic pain disorder G89.4 ; Hyperlipemia E78.5 and Type 2 diabetes mellitus with diabetic polyneuropathy, without long-term current use of insulin E11.42 [place] [address] [facility] [id number] [address] [place] [id number] Dec, Chronic pain disorder G89.4 [facility] [address] [facility] [id number] [address] [place] [address] Dec, Chronic pain disorder G89.4 [facility] [address] [facility] [id number] [address] [place] [id number] Nov, Fibromyalgia M79.7 [facility] [address] [id number] [address] [place] [id number] Nov, [facility] [address] [facility] [id number] [address] [place] [id number] Nov, Fibromyalgia M79.7 ; Degener ative disc disease, lumbar M51.36 and Type 2 diabetes mellitus with hyperglycemia, without long-term current use of insulin E11.65 [facility] [address] [facility] [id number] [address] [place] [id number] Oct, Degenerative disc disease, l umbar M51.36 [place] [address] [facility] [id number] [address] [place] [address] Sep, Fibromyalgia M79.7 ; Degener ative disc disease, lumbar M51.36 and Restless leg syndrome G25.81 [place] [address] [address] [place] [id number] [address] [place] [address] Sep, Fibromyalgia M79.7 [facility] [address] [facility] [id number] [address] [place] [address] Sep, [place] [address] [place] [id number] [address] [place] [address] Aug, [place] [address] [place] [id number] [address] [place] [id number] Aug, Chronic pain disorder G89.4 [place] [address] [address] [place] [id number] [place] [address] 14 Jul, 2018 HTN (hypertension) I10 ; Typ e 2 diabetes mellitus with hyperglycemia, without long-term current use of insulin E11.65 ; Overweight (BMI 25.0-29.9) E66.3 ; Fibromyalgia M79.7 ; Restless leg syndrome G25.81 ; Chronic pain disorder G89.4 ; Hyperlipemia E78.5 and Angina at rest I20.8 [place] [address] [place] [id number] [address] [place] [id number] Jul, [place] [address] [place] [id number] [address] [place] [address] Jul, Restless leg syndrome G25.81 [place] [address] [place] [id number] [address] [place] [id number] Jun, Fibromyalgia M79.7 [place] [address] [place] [id number] [address] [place] [address] Jun, Chronic pain disorder G89.4 [place] [address] [place] [id number] [address] [place] [id number] Jun, [place] [address] [facility] [id number] [address] [place] [id number] May, [place] [address] [facility] [id number] [address] [place] [id number] May, Vitamin D deficiency E55.9 [place] [address] [facility] [id number] [address] [place] [address] May, Vitamin D deficiency E55.[id number] [place] [phone] May, Chronic pain disorder G89.4 [place] [address] [facility] [id number] [address] [place] [id number] May, Chronic pain disorder G89.4 [place] [address] [facility] [id number] [address] [place] [id number] Apr, Chronic pain disorder G89.4 [place] [address] [facility] [id number] [address] [place] [id number] Apr, Type 2 diabetes mellitus wit h diabetic polyneuropathy, without long-term current use of insulin E11.42 ; HTN (hypertension) I10 ; Hyperlipemia E78.5 ; Fibromyalgia M79.7 ; Degenerative disc disease, lumbar M51.36 ; Chronic pain disorder G89.4 ; Chronic, continuous use of opioids F11.90 ; Vitamin D deficiency E55.9 ; Anxiety F41.9 ; Chronic tension-type headache, intractable G44.221 and Overweight (BMI 25.0-29.9) E66.3 [place] [address] [facility] [id number] [address] [place] [id number] March, Chronic pain disorder G89.4 [place] [address] [facility] [id number] [address] [place] [id number] March, Type 2 diabetes mellitus wit h diabetic polyneuropathy, without long-term current use of insulin E11.42 [place] [address] [facility] [id number] [address] [place] [address] Feb, Chronic pain disorder G89.4 [facility] [address] [facility] [id number] [address] [place] [id number] Jan, [facility] [address] [place] [id number] [address] [place] [id number] Jan, Pharyngitis, unspecified vashti ology J02.9 ; Fibromyalgia M79.7 and Chronic pain disorder G89.4 [facility] [address] [facility] [id number] [address] [place] [id number] Jan, [facility] [address] [facility] [id number] [address] [place] [id number] Jan, [facility] [address] [place] [id number] [address] [place] [id number] Jan, [place] [address] [place] [id number] [address] [place] [id number] Jan, Type 2 diabetes mellitus wit h diabetic polyneuropathy, without long-term current use of insulin E11.42 ; Type 2 diabetes mellitus with hyperglycemia, without long-term current use of insulin E11.65 ; Degenerative disc disease, lumbar M51.36 ; Fibromyalgia M79.7 ; Restless leg syndrome G25.81 ; HTN (hypertension) I10 ; Hyperlipemia E78.5 ; Anxiety F41.9 ; Migraines G43.909 and High risk medication use Z79.899 [facility] [address] [place] [id number] [address] [place] [id number] Dec, Chronic pain disorder G89.4 [facility] [address] [facility] [id number] [address] [place] [id number] Nov, Chronic pain disorder G89.4 [facility] [address] [facility] [id number] [address] [place] [id number] Nov, [facility] [address] [place] [id number] [address] [place] [id number] Nov, Type 2 diabetes mellitus wit h hyperglycemia, without long-term current use of insulin E11.65 ; HTN (hypertension) I10 ; Hyperlipemia E78.5 ; Restless leg syndrome G25.81 ; Fibromyalgia M79.7 ; Chronic tension-type headache, intractable G44.221 ; Migraines G43.909 ; Chronic pain disorder G89.4 and Overweight (BMI 25.0-29.9) E66.[address] [address] Nov, [address] [address] Oct, Degenerative disc disease, l umbar M51.[address] [address] Sep, Degenerative disc disease, l umbar M51.[address] [address] Sep, [address] [address] Aug, Degenerative disc disease, l umbar M51.[address] [address] Aug, Fall from height of greater than 3 feet W19.XXXA ; Hematoma of left hip, subsequent encounter S70.02XD ; Fibromyalgia M79.7 ; Muscle spasms of both lower extremities M62.838 ; Anxiety F41.9 ; Degenerative disc disease, lumbar M51.36 ; Chronic pain disorder G89.4 and Chronic, continuous use of opioids F11.[address] [address] Jul, [address] [address] Jul, Degenerative disc disease, l umbar M51.[address] [address] Jun, Degenerative disc disease, l umbar M51.36 [facility] [address] [id number] [address] [place] [address], [place] [address] May, Degenerative disc disease, l umbar M51.36 [facility] [address] [id number] [address] [place] [address], [place] [address] May, [facility] [address] [id number] [address] [place] [id number] Apr, Degenerative disc disease, l umbar M51.36 [facility] [address] [id number] [address] [place] [address], [place] [address] Apr, Degenerative disc disease, l umbar M51.36 [facility] [address] [id number] [address] [place] [address], [place] [address] March, Degenerative disc disease, l umbar M51.36 and Fall (on) (from) other stairs and steps, initial encounter W10.8XXA [facility] [address] [id number] [address] [place] [id number] March, [facility] [address] [id number] [address] [place] [id number] March, [facility] [address] [id number] [address] [place] [id number] March, [facility] [address] [id number] [address] [place] [id number] March, [facility] [address] [id number] [address] [place] [id number] Feb, [facility] [address] [id number] [address] [place] [id number] Jan, Fibromyalgia M79.7 [facility] [address] [id number] [address] [place] [id number] Jan, [facility] [address] [id number] [address] [place] [id number] Dec, Degenerative disc disease, l umbar M51.36 [facility] [address] [facility] [id number] [address] [place] [id number] Dec, [facility] [address] [facility] [id number] [address] [place] [id number] Nov, Degenerative disc disease, l umbar M51.36 ; Fibromyalgia M79.7 ; Restless leg syndrome G25.81 ; HTN (hypertension) I10 ; Hyperlipemia E78.5 ; Chronic tension-type headache, intractable G44.221 and OAB (overactive bladder) N32.81 [facility] [address] [facility] [id number] [address] [place] [id number] Nov, [facility] [address] [facility] [id number] [address] [place] [id number] Oct, [facility] [address] [facility] [id number] [address] [place] [id number] Oct, [id number] [place] [id number] Oct, [facility] [address] [facility] [id number] [address] [place] [id number] Sep, [facility] [address] [facility] [id number] [address] [place] [id number] Aug, [facility] [address] [facility] [id number] [address] [place] [id number] Aug, [facility] [address] [facility] [id number] [address] [place] [id number] Aug, Degenerative disc disease, l umbar M51.36 [facility] [address] [facility] [id number] [address] [place] [id number] Aug, Degenerative disc disease, l umbar M51.36 ; Fibromyalgia M79.7 ; Migraines G43.909 ; Hyperlipemia E78.5 ; Muscle spasms of both lower extremities M62.838 ; Chronic tension-type headache, intractable G44.221 ; HTN (hypertension) I10 and Restless leg syndrome G25.81 [facility] [address] [id number] [address] [place] [id number] 29 Jul, 2016 [facility] [address] [id number] [address] [place] [id number] Jul, [facility] [address] [id number] [address] [place] [id number] Jul, [facility] [address] [id number] [address] [place] [id number] Jun, Chronic tension-type headach e, intractable G44.221 ; Muscle spasms of both lower extremities M62.838 ; Fibromyalgia M79.7 ; Degenerative disc disease, lumbar M51.36 ; Restless leg syndrome G25.81 ; Migraines G43.909 ; Hyperlipemia E78.5 and Anxiety F41.9 [facility] [address] [id number] [address] [place] [id number] Jun, [facility] [address] [id number] [address] [place] [id number] Jun, [facility] [address] [id number] [address] [place] [id number] Jun, [facility] [address] [id number] [address] [place] [id number] Jun, [facility] [address] [id number] [address] [place] [id number] May, Sebaceous cyst L72.3 [facility] [address] [id number] [address] [place] [id number] May, Low back pain M54.5 [facility] [address] [id number] [address] [place] [id number] Apr, [facility] [address] [id number] [address] [place] [id number] 16 Apr, 2016 Fibromyalgia M79.7 [facility] [address] [id number] [address] [place] [id number] Apr, Degenerative disc disease, l umbar M51.36 ; Fibromyalgia M79.7 ; Migraines G43.909 ; Hyperlipemia E78.5 ; Restless leg syndrome G25.81 ; Other intractable trigeminal autonomic cephalgia (TAC) G44.091 ; Secondary hypertension I15.9 and Anxiety F41.9 [facility] [address] [facility] [id number] [address] [place] [id number] March, Other halfway (current) dr holloway therapy Z79.899 and HTN (hypertension) I10 [facility] [address] [facility] [id number] [address] [place] [id number] March, Fibromyalgia M79.7 [facility] [address] [facility] [id number] [address] [place] [id number] Feb, [facility] [address] [place] [id number] [address] [place] [id number] Feb, [facility] [address] [facility] [id number] [address] [place] [id number] Feb, [facility] [address] [facility] [id number] [address] [place] [id number] Feb, Hyperlipemia E78.5 [facility] [address] [facility] [id number] [address] [place] [id number] Feb, Migraines G43.909 ; Fibromya lgia M79.7 ; Degenerative disc disease, lumbar M51.36 ; Restless leg syndrome G25.81 ; HTN (hypertension) I10 and Tobacco abuse counseling Z71.6 [facility] [address] [facility] [id number] [address] [place] [id number] Feb, [facility] [address] [facility] [id number] [address] [place] [id number] Jan, [facility] [address] [facility] [id number] [address] [place] [id number] Jan, [facility] [address] [place] [id number] [address] [place] [id number] Dec, [facility] [address] [id number] [address] [place] [id number] Dec, Degenerative disc disease, l umbar M51.36 ; Restless leg syndrome G25.81 ; Migraines G43.909 ; HTN (hypertension) I10 ; Fibromyalgia M79.7 and Other halfway (current) drug therapy Z79.899 [facility] [address] [id number] [address] [place] [id number] Dec, [facility] [address] [id number] [address] [place] [id number] Nov, [facility] [address] [id number] [address] [place] [id number] Nov, [facility] [address] [id number] [address] [place] [id number] Oct, [facility] [address] [id number] [address] [place] [id number] Oct, [facility] [address] [id number] [address] [place] [id number] Oct, [facility] [address] [facility] [id number] [address] [place] [id number] Sep, [facility] [address] [facility] [id number] [address] [place] [id number] Sep, Routine gynecological examin ation V72.31 ; Degenerative disc disease, lumbar M51.36 ; Fibromyalgia M79.7 ; Restless leg syndrome G25.81 ; Migraines G43.909 and Well woman exam Z01.419 [facility] [address] [id number] [address] [place] [id number] Sep, [facility] [address] [id number] [address] [place] [id number] Aug, [facility] [address] [facility] [id number] [address] [place] [id number] Aug, Migraines G43.909 ; Degenera tive disc disease, lumbar M51.36 ; Fibromyalgia M79.7 ; Restless leg syndrome G25.81 and HTN (hypertension) I10 [facility] [address] [id number] Aug, [facility] [address] [id number] Aug, [facility] [address] [id number] Jul, [facility] [address] [id number] Jul, [facility] [address] [id number] Jun, Fibromyalgia 729.1 ; Lumbago 724.2 ; Restless leg syndrome 333.94 ; Migraines 346.90 and Elevated blood pressure (not hypertension) 796.2 [facility] [address] [id number] May, Fibromyalgia 729.1 ; Nontoxi c uninodular goiter 241.0 ; Lumbago 724.2 ; Restless leg syndrome 333.94 and Migraines 346.90 [facility] [address] [id number] Feb, [facility] [address] [id number] Feb, [facility] [address] [id number] Jan, [facility] [address] [id number] Jan, [facility] [address] [place] [id number] [place] [id number] Jan, [facility] [address] [id number] Jan, [facility] [address] [id number] [address] [place] [address], [place] [address] Jan, [facility] [address] [id number] [address] [place] [address], [place] [id number] Jan, 2014 [facility] [address] [id number] [address] [place] [address], [place] [id number] Jan, 2014 [facility] [address] [id number] [address] [place] [address], [place] [id number] Jan, 2014 [facility] [address] [address] [id number] [address] [place] [address], [place] [address] Dec, 2014 [facility] [address] [id number] [address] [place] [address], [place] [address] Dec, 2014 [facility] [address] [id number] [address] [place] [address], [place] [address] Dec, 2014 [facility] [address] [id number] [address] [place] [address], [place] [address] Dec, 2014 [facility] [address] [id number] [address] [place] [address], [place] [address] Dec, 2014 [facility] [address] [id number] [address] [place] [address], [place] [address] Dec, 2014 [facility] [address] [id number] [address] [place] [address], [place] [address] Dec, 2014 [facility] [address] [id number] [address] [place] [address] Dec, 2014 [facility] [address] [id number] [address] [place] [address], [place] [address] Dec, 2014 [facility] [address] [id number] [address] [place] [address] Dec, 2014 [facility] [address] [id number] [address] [place] [address] Dec, [facility] [address] [facility] [id number] [address] [place] [address] Nov, [facility] [address] [facility] [id number] [address] [place] [address] Nov, IMMUNIZATIONS No Known Immunizations SOCIAL HISTORY Never Assessed REASON FOR VISIT discuss providers options natalio BUENO PLAN OF CARE Activity Details Follow Up prn Reason: VITAL SIGNS Height 62 in 2019-02-05 Weight 62 lbs 2019-02-05 Temperature 99.7 degrees Fahrenheit 2019-02-05 BMI 11.34 kg/m2 2019-02-05 Blood pressure systolic 124 mmHg 2019-02-05 Blood pressure diastolic 76 mmHg 2019-02-05 MEDICATIONS Medication Instructions Dosage Frequency Start Date End Date Duration S tatus Meloxicam 15 mg Orally Once a day 1 tablet 24h Active Hydrocodone-Acetaminophen 10-325 MG Orally every 6 hrs 1 tablet as needed 6h Dec, 28 days Active Propranolol HCl 10 mg Orally Twice a day 1 tablet 12h 15 Apr, 2018 Active Glucocard Expression Test - subcutaneously 2 times a day test 2 times per day 12h Nov, 30 days Active MetFORMIN HCl ER 500 mg Orally daily 1 tablet with evening meal 24h Nov, Active Lisinopril 10 mg Orally Once a day 1 tablet 24h Active Gabapentin 400 mg Orally 3 times a day 1 capsule 8h 28 days Active Crestor 10 MG Orally Once a day 4 tablets 24h Jan, Active RESULTS No Results PROCEDURES No Known procedures INSTRUCTIONS MEDICATIONS ADMINISTERED No Known Medications MEDICAL [...] History surgery Hospitalization History childbirth Hospitalization History [facility] for migraine
--- OUTSIDE RECORDS SUMMARY | 2020-02-04 14:54 | XMS REPORT ---
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 Name Role Phone [employer]ME[employer] COPE Unavailable PROBLEMS Type Condition ICD9-CM Code [id number] Code Onset Dates Condition S tatus SNOMED Code Problem Restless leg syndrome G25.81 Active 31157741 Problem Vitamin D deficiency E55.9 Active 68055882 Problem Fibromyalgia M79.7 Active 1876925 7 Problem Degenerative disc disease, lumbar M51.36 Active 91498075 Problem Migraines G43.909 Active 36140531 Problem HTN (hypertension) I10 Active 3 1289284 Problem Muscle spasms of both lower extremities M62.838 Active 347156931 Problem OAB (overactive bladder) N32.81 Activ e 074302861 Problem Chronic pain disorder G89.4 Active 996926034 Problem Overweight (BMI 25.0-29.9) E66.3 Act ramana 287669135 Problem Anxiety F41.9 Active 63893252 Problem Angina at rest I20.8 Active 06471 8000 Problem Hyperlipemia E78.5 Active 1751754 4 Problem Chronic, continuous use of opioids F11.90 Active 493428980 Problem Type 2 diabetes mellitus wit h hyperglycemia, without long-term current use of insulin E11.65 Active 10695856 Problem Type 2 diabetes mellitus wit h diabetic polyneuropathy, without long-term current use of insulin E11.42 Active 72045 006 Problem Chronic tension-type headache, intractable G44.221 Active 168399788 ALLERGIES No Information ENCOUNTERS Encounter Location Date Diagnosis [address] [place] [address] Nov, [address] [place] [address] Oct, Fibromyalgia M79.7 [facility] [address] [id number] [place] [address] Oct, Angina at rest I20.[address] [place] [address] Sep, Fibromyalgia M79.7 [address] [place] [address] Sep, Fibromyalgia M79.7 [address] [place] [address] Aug, Fibromyalgia M79.7 and Muscu loskeletal chest pain R07.89 [address] [place] [address] Aug, [address] [place] [address] Aug, Acute cystitis with hematuri a N30.01 [address] [place] [address] Jul, [address] [place] [address] Jul, Degenerative disc disease, l umbar M51.36 ; Fibromyalgia M79.7 and Musculoskeletal chest pain R07.[address] [place] [address] Jul, Chronic pain disorder G89.4 [address] [place] [address] Jun, Fibromyalgia M79.7 [facility] [address] [id number] [place] [address] Jun, [address] [place] [address] Jun, Chronic pain disorder G89.4 [address] [place] [address] May, Fibromyalgia M79.7 and Chron ic pain disorder G89.4 [address] [place] [address] May, Adverse effect of drug, init ial encounter T50.905A and Acute conjunctivitis of both eyes, unspecified acute conjunctivitis type H10.33 [address] [place] [address] Apr, [address] [place] [address] Apr, [address] [place] [address] Apr, Type 2 diabetes mellitus wit h hyperglycemia, without long-term current use of insulin E11.65 and Hyperlipemia E78.5 [address] [place] [address] Apr, Fibromyalgia M79.7 ; High ri sk medications (not anticoagulants) long-term use Z79.899 ; Chronic pain disorder G89.4 ; Type 2 diabetes mellitus with diabetic polyneuropathy, without long-term current use of insulin E11.42 ; HTN (hypertension) I10 and Hyperlipemia E78.5 [address] [place] [address] Apr, Degenerative disc disease, l umbar M51.36 [facility] [address] [place] [address] Apr, Drug screening, pre-employme nt Z02.1 [address] [place] [address] March, [facility] [address] [id number] [place] [address] March, HTN (hypertension) I10 ; Hyperlipemia E7 8.5 ; Type 2 diabetes mellitus with hyperglycemia, without long-term current use of insulin E11.65 and Degenerative disc disease, lumbar M51.36 [facility] [address] [place] [address] March, Degenerative disc disease, l umbar M51.36 [facility] [address] [id number] [place] [address] March, [facility] [address] [id number] [place] [address] Feb, [facility] [address] [id number] [place] [address] Feb, Degenerative disc disease, lumbar M51.[address] [place] [address] Feb, Degenerative disc disease, l umbar M51.36 [address] [place] [address] Feb, Degenerative disc disease, l umbar M51.36 [facility] [address] [id number] [place] [address] Feb, [address] [place] [address] Feb, [address] [place] [address] Feb, [address] [place] [address] Jan, Screening mammogram, encount er for Z12.31 [address] [place] [address] Jan, Urine frequency R35.0 ; Dege nerative disc disease, lumbar M51.36 and Encounter for Papanicolaou smear for cervical cancer screening Z12.[address] [place] [address] Jan, Fibromyalgia M79.[address] [place] [address] Jan, [address] [place] [address] Jan, Degenerative disc disease, l umbar M51.36 and Fibromyalgia M79.[address] [place] [address] Jan, [address] [place] [address] Jan, [address] [place] [address] Jan, Degenerative disc disease, l umbar M51.36 ; Fibromyalgia M79.7 and Type 2 diabetes mellitus with diabetic polyneuropathy, without long- term current use of insulin E11.[address] [place] [address] Dec, [address] [place] [address] Dec, [address] [place] [address] Dec, Fibromyalgia M79.[address] [place] [address] Dec, [address] [address] Dec, [address] [place] [address] Dec, Degenerative disc disease, l umbar M51.36 ; HTN (hypertension) I10 ; Chronic pain disorder G89.4 ; Hyperlipemia E78.5 and Type 2 diabetes mellitus with diabetic polyneuropathy, without long-term current use of insulin E11.42 [address] [address] Dec, Chronic pain disorder G89.4 [facility] [address] [address] Dec, Chronic pain disorder G89.4 [address] [address] Nov, Fibromyalgia M79.7 [address] [address] Nov, [address] [address] Nov, Fibromyalgia M79.7 ; Degenerative disc d isease, lumbar M51.36 and Type 2 diabetes mellitus with hyperglycemia, without long-term current use of insulin E11.65 [address] [address] Oct, Degenerative disc disease, lumbar M51.36 [address] [address] Sep, Fibromyalgia M79.7 ; Degenerative disc d isease, lumbar M51.36 and Restless leg syndrome G25.81 [address] [address] Sep, Fibromyalgia M79.7 [address] [address] Sep, [address] [address] Aug, [address] [address] Aug, Chronic pain disorder G89.[address] [address] 14 Jul, 2018 HTN (hypertension) I10 ; Type 2 diabetes mellitus with hyperglycemia, without long-term current use of insulin E11.65 ; Overweight (BMI 25.0-29.9) E66.3 ; Fibromyalgia M79.7 ; Restless leg syndrome G25.81 ; Chronic pain disorder G89.4 ; Hyperlipemia E78.5 and Angina at rest I20.8 [address] [address] 13 Jul, 2018 [address] [address] Jul, Restless leg syndrome G25.81 [address] [address] Jun, Fibromyalgia M79.7 [address] [address] Jun, Chronic pain disorder G89.4 [address] [address] Jun, [address] [address] May, [address] [address] May, Vitamin D deficiency E55.9 [address] [address] May, Vitamin D deficiency E55.[address] [id number] [place] [address] May, Chronic pain disorder G89.4 [address] [address] May, Chronic pain disorder G89.4 [address] [address] Apr, Chronic pain disorder G89.4 [address] [address] Apr, Type 2 diabetes mellitus with diabetic [...] intractable G44.221 and Overweight (BMI 25.0-29.9) E66.3 [address] [address] March, Chronic pain disorder G89.4 [address] [address] March, Type 2 diabetes mellitus with diabetic p olyneuropathy, without long- term current use of insulin E11.42 [address] [address] Feb, Chronic pain disorder G89.4 [address] [address] Jan, [address] [address] Jan, Pharyngitis, unspecified etiology J02.9 ; Fibromyalgia M79.7 and Chronic pain disorder G89.4 [address] [address] Jan, [address] [address] Jan, [address] [address] Jan, [address] [address] Jan, Type 2 diabetes mellitus with diabetic [...] G43.909 and High risk medication use Z79.899 [address] [address] Dec, Chronic pain disorder G89.4 [address] [address] [address] Nov, Chronic pain disorder G89.4 [address] [address] Nov, [address] [address] Nov, Type 2 diabetes mellitus with hyperglyce [place], without long-term current use of insulin E11.65 ; HTN (hypertension) I10 ; Hyperlipemia E78.5 ; Restless leg syndrome G25.81 ; Fibromyalgia M79.7 ; Chronic tension-type headache, intractable G44.221 ; Migraines G43.909 ; Chronic pain disorder G89.4 and Overweight (BMI 25.0-29.9) E66.3 [address] [address] Nov, [address] [address] Oct, Degenerative disc disease, lumbar M51.[address] [address] Sep, Degenerative disc disease, lumbar M51.36 [address] [address] Sep, [address] [address] Aug, Degenerative disc disease, lumbar M51.36 [address] [address] Aug, Fall from height of greater than 3 feet W19.XXXA ; Hematoma of left hip, subsequent encounter S70.02XD ; Fibromyalgia M79.7 ; Muscle spasms of both lower extremities M62.838 ; Anxiety F41.9 ; Degenerative disc disease, lumbar M51.36 ; Chronic pain disorder G89.4 and Chronic, continuous use of opioids F11.90 [address] [address] Jul, [address] [address] Jul, Degenerative disc disease, lumbar M51.36 [facility] [address] [place] [address] Jun, Degenerative disc disease, lumbar M51.36 [facility] [address] [address] May, Degenerative disc disease, lumbar M51.36 [facility] [address] [address] May, [facility] [address] [address] Apr, Degenerative disc disease, lumbar M51.36 [facility] [address] [address] Apr, Degenerative disc disease, lumbar M51.36 [facility] [address] [address] March, Degenerative disc disease, lumbar M51.36 and Fall (on) (from) other stairs and steps, initial encounter W10.8XXA [address] [address] March, [address] [address] March, [facility] [address] [address] March, [facility] [address] [address] March, [facility] [address] [address] Feb, [facility] [address] [address] Jan, Fibromyalgia M79.7 [facility] [address] [address] Jan, [facility] [address] [address] Dec, Degenerative disc disease, lumbar M51.36 [id number] [place] [address] Dec, [address] [address] Nov, Degenerative disc disease, lumbar M51.36 ; Fibromyalgia M79.7 ; Restless leg syndrome G25.81 ; HTN (hypertension) I10 ; Hyperlipemia E78.5 ; Chronic tension-type headache, intractable G44.221 and OAB (overactive bladder) N32.81 [address] [place] [address] Nov, [address] [address] Oct, [address] [address] Oct, [address] [address] Oct, [address] [address] Sep, [address] [address] Aug, [address] [address] Aug, [address] [address] Aug, Degenerative disc disease, lumbar M51.36 [facility] [address] [place] [address] Aug, Degenerative disc disease, lumbar M51.36 ; Fibromyalgia M79.7 ; Migraines G43.909 ; Hyperlipemia E78.5 ; Muscle spasms of both lower extremities M62.838 ; Chronic tension-type headache, intractable G44.221 ; HTN (hypertension) I10 and Restless leg syndrome G25.81 [address] [address] Jul, [facility] [address] [address] Jul, [facility] [address] [address] Jul, [facility] [address] [address] Jun, Chronic tension-type headache, intractab le G44.221 ; Muscle spasms of both lower extremities M62.838 ; Fibromyalgia M79.7 ; Degenerative disc disease, lumbar M51.36 ; Restless leg syndrome G25.81 ; Migraines G43.909 ; Hyperlipemia E78.5 and Anxiety F41.9 [facility] [address] [address] Jun, [facility] [address] [address] Jun, [facility] [address] [address] Jun, [facility] [address] [address] Jun, [facility] [address] [address] May, Sebaceous cyst L72.3 [facility] [address] [address] May, Low back pain M54.5 [facility] [address] [address] Apr, [facility] [address] [address] Apr, Fibromyalgia M79.7 [facility] [address] [address] Apr, Degenerative disc disease, lumbar M51.36 ; Fibromyalgia M79.7 ; Migraines G43.909 ; Hyperlipemia E78.5 ; Restless leg syndrome G25.81 ; Other intractable trigeminal autonomic cephalgia (TAC) G44.091 ; Secondary hypertension I15.9 and Anxiety F41.9 [address] [address] [address] March, Other salvage determiner (current) drug therapy Z 79.899 and HTN (hypertension) I10 [place] [address] [address] March, Fibromyalgia M79.7 [place] [address] [address] Feb, [place] [address] [address] Feb, [place] [address] [address] Feb, [place] [address] [address] Feb, Hyperlipemia E78.5 [place] [address] [address] Feb, Migraines G43.909 ; Fibromyalgia M79.7 ; Degenerative disc disease, lumbar M51.36 ; Restless leg syndrome G25.81 ; HTN (hypertension) I10 and Tobacco abuse counseling Z71.6 [place] [address] [address] Feb, [place] [address] [address] Jan, [place] [address] [address] Jan, [place] [address] [address] Dec, [place] [address] [address] Dec, Degenerative disc disease, lumbar M51.36 ; Restless leg syndrome G25.81 ; Migraines G43.909 ; HTN (hypertension) I10 ; Fibromyalgia M79.7 and Other salvage determiner (current) drug therapy Z79.899 [facility] [address] [address] Dec, [facility] [address] [address] Nov, [facility] [address] [address] Nov, [facility] [address] [address] Oct, [facility] [address] [address] Oct, [facility] [address] [address] Oct, [facility] [address] [address] Sep, [facility] [address] [address] Sep, Routine gynecological examination V72.31 ; Degenerative disc disease, lumbar M51.36 ; Fibromyalgia M79.7 ; Restless leg syndrome G25.81 ; Migraines G43.909 and Well woman exam Z01.419 [facility] [address] [address] Sep, [facility] [address] [address] Aug, [facility] [address] [address] Aug, Migraines G43.909 ; Degenerative disc di sease, lumbar M51.36 ; Fibromyalgia M79.7 ; Restless leg syndrome G25.81 and HTN (hypertension) I10 [facility] [address] [address] Aug, [facility] [address] [address] Aug, [facility] [address] [place] [address] Jul, [facility] [address] [address] Jul, [facility] [id number] [place] [address] Jun, Fibromyalgia 729.1 ; Lumbago 724.2 ; Res tless leg syndrome 333.94 ; Migraines 346.90 and Elevated blood pressure (not hypertension) 796.2 [facility] [id number] [place] [address] May, Fibromyalgia 729.1 ; Nontoxic uninodular goiter 241.0 ; Lumbago 724.2 ; Restless leg syndrome 333.94 and Migraines 346.90 [facility] [address] [address] Feb, [facility] [address] [address] Feb, [facility] [address] [address] Jan, [facility] [address] [address] Jan, [facility] [address] [address] Jan, [facility] [address] [address] Jan, [facility] [address] [address] Jan, [facility] [address] [address] Jan, [facility] [address] [address] Jan, [facility] [address] [address] Jan, [facility] [id number] [place] [address] Dec, 2014 [facility] [id number] [place] [address] Dec, 2014 [facility] [id number] [place] [address] Dec, 2014 [facility] [address] [address] Dec, 2014 [facility] [address] [address] Dec, 2014 [facility] [address] [address] Dec, 2014 [facility] [address] [address] Dec, 2014 [facility] [address] [address] Dec, 2014 [facility] [address] [address] Dec, 2014 [facility] [address] [address] Dec, 2014 [facility] [address] [address] Dec, [facility] [address] [address] Nov, [facility] [address] [address] Nov, IMMUNIZATIONS No Known Immunizations SOCIAL HISTORY Never Assessed REASON FOR VISIT Controlled Med Refill PLAN OF CARE VITAL SIGNS MEDICATIONS Medication Instructions Dosage Frequency Start Date End Date Duration S tatus Hydrocodone-Acetaminophen 10-325 MG Orally every 6 hrs 1 tablet as needed Dec, 28 days Active RESULTS No Results PROCEDURES No Known [...]
--- OUTSIDE RECORDS SUMMARY | 2020-02-04 14:55 | XMS REPORT ---
Author Author Caitie Garcia Organization [facility] Address [address] [place] [address] Care Team Providers Care [employer] Professor Name Role Phone ED Garcia Unavailable PROBLEMS Type Condition ICD9-CM Code [id number] Code Onset Dates Condition S tatus SNOMED Code Problem Restless leg syndrome G25.81 Active 84879078 Problem Vitamin D deficiency E55.9 Active 63679070 Problem Fibromyalgia M79.7 Active 3291143 7 Problem Degenerative disc disease, lumbar M51.36 Active 40244494 Problem Migraines G43.909 Active 84354104 Problem HTN (hypertension) I10 Active 3 6599566 Problem Muscle spasms of both lower extremities M62.838 Active 595092434 Problem OAB (overactive bladder) N32.81 Activ e 331914011 Problem Chronic pain disorder G89.4 Active 021087978 Problem Overweight (BMI 25.0-29.9) E66.3 Act ramana 443086620 Problem Anxiety F41.9 Active 14693420 Problem Angina at rest I20.8 Active 23495 8000 Problem Hyperlipemia E78.5 Active 8615956 4 Problem Chronic, continuous use of opioids F11.90 Active 945215757 Problem Type 2 diabetes mellitus wit h hyperglycemia, without long-term current use of insulin E11.65 Active 07261141 Problem Type 2 diabetes mellitus wit h diabetic polyneuropathy, without long-term current use of insulin E11.42 Active 70776 006 Problem Chronic tension-type headache, intractable G44.221 Active [id number] ALLERGIES No Information ENCOUNTERS Encounter Location Date Diagnosis [address] [address] May, Adverse effect of drug, initial encounte r T50.905A and Acute conjunctivitis of both eyes, unspecified acute conjunctivitis type H10.[address] [address] Apr, [address] [address] Apr, [address] [address] Apr, Type 2 diabetes mellitus with hyperglyce wayne, without long-term current use of insulin E11.65 and Hyperlipemia E78.[address] [address] Apr, Fibromyalgia M79.7 ; High risk medicatio ns (not anticoagulants) long- term use Z79.899 ; Chronic pain disorder G89.4 ; Type 2 diabetes mellitus with diabetic polyneuropathy, without long-term current use of insulin E11.42 ; HTN (hypertension) I10 and Hyperlipemia E78.[address] [address] Apr, Degenerative disc disease, lumbar M51.36 [facility] [address] [facility] [place] [address] Apr, Drug screening, pre-employment Z02.[address] [address] March, [place] [address] [address] [facility] [id number] [address] [place] [address] March, HTN (hypertension) I10 ; Hyp erlipemia E78.5 ; Type 2 diabetes mellitus with hyperglycemia, without long-term current use of insulin E11.65 and Degenerative disc disease, lumbar M51.36 [facility] [address] [place] [address] March, Degenerative disc disease, lumbar M51.36 [facility] [address] [id number] [address] [place] [address] March, [facility] [address] [id number] [address] [place] [address] Feb, [facility] [address] [id number] [address] [place] [address] Feb, Degenerative disc disease, l umbar M51.[address] [address] Feb, Degenerative disc disease, lumbar M51.[address] [address] Feb, Degenerative disc disease, lumbar M51.36 [facility] [address] [facility] [id number] [address] [place] [address] Feb, [address] [address] Feb, [address] [address] Feb, [address] [address] Jan, Screening mammogram, encounter for Z12.[address] [address] Jan, Urine frequency R35.0 ; Degenerative dis c disease, lumbar M51.36 and Encounter for Papanicolaou smear for cervical cancer screening Z12.[address] [address] Jan, Fibromyalgia M79.[address] [address] Jan, [address] [address] Jan, Degenerative disc disease, lumbar M51.36 and Fibromyalgia M79.[address] [address] Jan, [address] [address] Jan, [address] [address] Jan, Degenerative disc disease, lumbar M51.36 ; Fibromyalgia M79.7 and Type 2 diabetes mellitus with diabetic polyneuropathy, without long-term current use of insulin E11.[address] [address] Dec, [address] [address] Dec, [address] [address] Dec, Fibromyalgia M79.[address] [address] Dec, [facility] [address] [facility] [id number] [address] [place] [address] Dec, [address] [address] Dec, Degenerative disc disease, lumbar M51.36 ; HTN (hypertension) I10 ; Chronic pain disorder G89.4 ; Hyperlipemia E78.5 and Type 2 diabetes mellitus with diabetic polyneuropathy, without long-term current use of insulin E11.42 [place] [id number] [facility] [id number] [address] [place] [address] Dec, Chronic pain disorder G89.4 [facility] [address] [facility] [id number] [address] [place] [address] Dec, Chronic pain disorder G89.4 [facility] [address] [facility] [id number] [address] [place] [address] Nov, Fibromyalgia M79.7 [facility] [address] [facility] [id number] [address] [place] [address] Nov, [facility] [address] [facility] [id number] [address] [place] [address] Nov, Fibromyalgia M79.7 ; Degener ative disc disease, lumbar M51.36 and Type 2 diabetes mellitus with hyperglycemia, without long-term current use of insulin E11.65 [facility] [address] [facility] [id number] [address] [place] [address] Oct, Degenerative disc disease, l umbar M51.36 [facility] [address] [facility] [id number] [address] [place] [address] Sep, Fibromyalgia M79.7 ; Degener ative disc disease, lumbar M51.36 and Restless leg syndrome G25.81 [facility] [address] [id number] [address] [place] [address] 07 Sep, 2018 Fibromyalgia M79.7 [facility] [address] [facility] [id number] [address] [place] [address] 05 Sep, 2018 [facility] [address] [facility] [id number] [address] [place] [address] Aug, [facility] [address] [id number] [address] [place] [address] Aug, Chronic pain disorder G89.4 [facility] [address] [facility] [id number] [address] [place] [address] 14 Jul, 2018 HTN (hypertension) I10 ; Typ e 2 diabetes mellitus with hyperglycemia, without long-term current use of insulin E11.65 ; Overweight (BMI 25.0-29.9) E66.3 ; Fibromyalgia M79.7 ; Restless leg syndrome G25.81 ; Chronic pain disorder G89.4 ; Hyperlipemia E78.5 and Angina at rest I20.8 [facility] [address] [facility] [id number] [address] [place] [address] 13 Jul, 2018 [facility] [address] [facility] [id number] [address] [place] [address] Jul, Restless leg syndrome G25.81 [facility] [address] [facility] [id number] [address] [place] [address] Jun, Fibromyalgia M79.7 [facility] [address] [id number] [address] [place] [address] Jun, Chronic pain disorder G89.4 [facility] [address] [facility] [id number] [address] [place] [address] 15 Jun, 2018 [facility] [address] [facility] [id number] [address] [place] [address] May, [facility] [address] [facility] [id number] [address] [place] [address] May, Vitamin D deficiency E55.9 [facility] [address] [facility] [id number] [address] [place] [address] May, Vitamin D deficiency E55.9 [facility] [place] [address] [id number] [place] [address] May, Chronic pain disorder G89.4 [place] [address] [facility] [id number] [address] [place] [address] May, Chronic pain disorder G89.4 [place] [address] [facility] [id number] [address] [place] [address] Apr, Chronic pain disorder G89.4 [place] [address] [facility] [id number] [address] [place] [address] Apr, Type 2 diabetes mellitus wit h diabetic polyneuropathy, without long-term current use of insulin E11.42 ; HTN (hypertension) I10 ; Hyperlipemia E78.5 ; Fibromyalgia M79.7 ; Degenerative disc disease, lumbar M51.36 ; Chronic pain disorder G89.4 ; Chronic, continuous use of opioids F11.90 ; Vitamin D deficiency E55.9 ; Anxiety F41.9 ; Chronic tension-type headache, intractable G44.221 and Overweight (BMI 25.0-29.9) E66.3 [place] [address] [facility] [id number] [address] [place] [address] March, Chronic pain disorder G89.4 [facility] [address] [facility] [id number] [address] [place] [address] March, Type 2 diabetes mellitus wit h diabetic polyneuropathy, without long-term current use of insulin E11.42 [place] [address] [facility] [id number] [address] [place] [address] Feb, Chronic pain disorder G89.4 [place] [address] [facility] [id number] [address] [place] [address] Jan, [place] [address] [place] [id number] [address] [place] [address] Jan, Pharyngitis, unspecified vashti ology J02.9 ; Fibromyalgia M79.7 and Chronic pain disorder G89.4 [place] [address] [place] [id number] [address] [place] [address] Jan, [place] [address] [address] Jan, [place] [address] [address] Jan, [place] [address] [address] Jan, Type 2 diabetes mellitus wit h diabetic polyneuropathy, without long-term current use of insulin E11.42 ; Type 2 diabetes mellitus with hyperglycemia, without long-term current use of insulin E11.65 ; Degenerative disc disease, lumbar M51.36 ; Fibromyalgia M79.7 ; Restless leg syndrome G25.81 ; HTN (hypertension) I10 ; Hyperlipemia E78.5 ; Anxiety F41.9 ; Migraines G43.909 and High risk medication use Z79.899 [place] [address] [address] Dec, Chronic pain disorder G89.4 [place] [address] [address] Nov, Chronic pain disorder G89.4 [place] [address] [place] [id number] [address] [place] [address] Nov, [place] [address] [address] Nov, Type 2 diabetes mellitus wit h hyperglycemia, without long-term current use of insulin E11.65 ; HTN (hypertension) I10 ; Hyperlipemia E78.5 ; Restless leg syndrome G25.81 ; Fibromyalgia M79.7 ; Chronic tension-type headache, intractable G44.221 ; Migraines G43.909 ; Chronic pain disorder G89.4 and Overweight (BMI 25.0-29.9) E66.3 [facility] [address] [place] [id number] [place] [address] Nov, [facility] [address] [place] [id number] [place] [address] Oct, Degenerative disc disease, l umbar M51.36 [place] [address] [place] [id number] [place] [address] Sep, Degenerative disc disease, l umbar M51.36 [place] [address] [place] [id number] [place] [address] Sep, [place] [address] [place] [id number] [place] [address] Aug, Degenerative disc disease, l umbar M51.36 [place] [address] [address] Aug, Fall from height of greater than 3 feet W19.XXXA ; Hematoma of left hip, subsequent encounter S70.02XD ; Fibromyalgia M79.7 ; Muscle spasms of both lower extremities M62.838 ; Anxiety F41.9 ; Degenerative disc disease, lumbar M51.36 ; Chronic pain disorder G89.4 and Chronic, continuous use of opioids F11.90 [place] [address] [address] Jul, [place] [address] [place] [id number] [place] [address] Jul, Degenerative disc disease, l umbar M51.36 [place] [address] [place] [id number] [place] [address] Jun, Degenerative disc disease, l umbar M51.36 [place] [address] [place] [id number] [address] [place] [address] May, Degenerative disc disease, l umbar M51.36 [place] [address] [place] [id number] [place] [address], [place] [address] May, [facility] [address] [id number] [address] [place] [address] Apr, Degenerative disc disease, l umbar M51.36 [facility] [address] [id number] [address] [place] [address] Apr, Degenerative disc disease, l umbar M51.36 [facility] [address] [id number] [address] [place] [address] March, Degenerative disc disease, l umbar M51.36 and Fall (on) (from) other stairs and steps, initial encounter W10.8XXA [facility] [address] [id number] [address] [place] [address] March, [facility] [address] [id number] [address] [place] [address] March, [facility] [address] [id number] [address] [place] [address] March, [facility] [address] [id number] [address] [place] [address] March, [facility] [address] [id number] [address] [place] [address] Feb, [facility] [address] [id number] [address] [place] [address] Jan, Fibromyalgia M79.7 [facility] [address] [id number] [address] [place] [address] Jan, [facility] [address] [id number] [address] [place] [address] Dec, Degenerative disc disease, l umbar M51.36 [facility] [address] [id number] [address] [place] [address] Dec, [facility] [address] [id number] [address] [place] [address] Nov, Degenerative disc disease, l umbar M51.36 ; Fibromyalgia M79.7 ; Restless leg syndrome G25.81 ; HTN (hypertension) I10 ; Hyperlipemia E78.5 ; Chronic tension-type headache, intractable G44.221 and OAB (overactive bladder) N32.81 [facility] [address] [facility] [id number] [address] [place] [phone] Nov, [facility] [address] [facility] [id number] [address] [place] [address] Oct, [facility] [address] [facility] [id number] [address] [place] [address] Oct, [place] [address] [id number] [place], [facility] [id number] Oct, [facility] [address] [facility] [id number] [address] [place] [address] Sep, [facility] [address] [facility] [id number] [address] [place] [address] Aug, [facility] [address] [facility] [id number] [address] [place] [phone] Aug, [facility] [address] [facility] [id number] [address] [place] [address] Aug, Degenerative disc disease, l umbar M51.36 [facility] [address] [facility] [id number] [address] [place] [address] Aug, Degenerative disc disease, l umbar M51.36 ; Fibromyalgia M79.7 ; Migraines G43.909 ; Hyperlipemia E78.5 ; Muscle spasms of both lower extremities M62.838 ; Chronic tension-type headache, intractable G44.221 ; HTN (hypertension) I10 and Restless leg syndrome G25.81 [facility] [address] [facility] [id number] [address] [place] [address] Jul, [facility] [address] [facility] [id number] [address] [place] [address] Jul, [facility] [address] [id number] [address] [place] [address] Jul, [facility] [address] [id number] [address] [place] [address] Jun, Chronic tension-type headach e, intractable G44.221 ; Muscle spasms of both lower extremities M62.838 ; Fibromyalgia M79.7 ; Degenerative disc disease, lumbar M51.36 ; Restless leg syndrome G25.81 ; Migraines G43.909 ; Hyperlipemia E78.5 and Anxiety F41.9 [facility] [address] [id number] [address] [place] [address] Jun, [facility] [address] [id number] [address] [place] [address] Jun, [facility] [address] [id number] [address] [place] [address] Jun, [facility] [address] [id number] [address] [place] [address] Jun, [facility] [address] [id number] [address] [place] [address] May, Sebaceous cyst L72.3 [facility] [address] [id number] [address] [place] [address] May, Low back pain M54.5 [facility] [address] [id number] [address] [place] [phone] Apr, [facility] [address] [id number] [address] [place] [address] Apr, Fibromyalgia M79.7 [facility] [address] [id number] [address] [place] [address] Apr, Degenerative disc disease, l umbar M51.36 ; Fibromyalgia M79.7 ; Migraines G43.909 ; Hyperlipemia E78.5 ; Restless leg syndrome G25.81 ; Other intractable trigeminal autonomic cephalgia (TAC) G44.091 ; Secondary hypertension I15.9 and Anxiety F41.9 [facility] [address] [facility] [id number] [address] [place] [address] March, 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 and HTN (hypertension) I10 [facility] [address] [facility] [id number] [address] [place] [address] March, Fibromyalgia M79.7 [facility] [address] [facility] [id number] [address] [place] [phone] Feb, [facility] [address] [facility] [id number] [address] [place] [address] Feb, [facility] [address] [place] [id number] [address] [place] [address] Feb, [facility] [address] [place] [id number] [address] [place] [address] Feb, Hyperlipemia E78.5 [facility] [address] [facility] [id number] [address] [place] [address] Feb, Migraines G43.909 ; Fibromya lgia M79.7 ; Degenerative disc disease, lumbar M51.36 ; Restless leg syndrome G25.81 ; HTN (hypertension) I10 and Tobacco abuse counseling Z71.6 [facility] [address] [facility] [id number] [address] [place] [address] Feb, [facility] [address] [facility] [id number] [address] [place] [address] Jan, [facility] [address] [facility] [id number] [address] [place] [address] Jan, [facility] [address] [facility] [id number] [address] [place] [address] Dec, [facility] [address] [place] [id number] [address] [place] [address] Dec, Degenerative disc disease, l umbar M51.36 ; Restless leg syndrome G25.81 ; Migraines G43.909 ; HTN (hypertension) I10 ; Fibromyalgia M79.7 and Other assisted (current) drug therapy Z79.899 [facility] [address] [id number] [address] [place] [address] Dec, [facility] [address] [id number] [address] [place] [address] Nov, [facility] [address] [id number] [address] [place] [phone] Nov, [facility] [address] [id number] [address] [place] [phone] Oct, [facility] [address] [facility] [id number] [address] [place] [address] Oct, [facility] [address] [facility] [id number] [address] [place] [phone] Oct, [facility] [address] [facility] [id number] [address] [place] [address] Sep, [facility] [address] [facility] [id number] [address] [place] [address] Sep, Routine gynecological examin ation V72.31 ; Degenerative disc disease, lumbar M51.36 ; Fibromyalgia M79.7 ; Restless leg syndrome G25.81 ; Migraines G43.909 and Well woman exam Z01.419 [facility] [address] [id number] [address] [place] [address] Sep, [facility] [address] [id number] [address] [place] [id number] Aug, [facility] [address] [facility] [id number] [address] [place] [address] Aug, Migraines G43.909 ; Degenera tive disc disease, lumbar M51.36 ; Fibromyalgia M79.7 ; Restless leg syndrome G25.81 and HTN (hypertension) I10 [facility] [address] [facility] [id number] [address] [place] [id number] Aug, [facility] [address] [id number] [address] [place] [id number] Aug, [facility] [address] [id number] [address] [place] [id number] Jul, [facility] [address] [facility] [place] [id number] [address] [place] [id number] Jul, [facility] [address] [facility] [place] [id number] [address] [place] [id number] Jun, Fibromyalgia 729.1 ; Lumbago 724.2 ; Restless leg syndrome 333.94 ; Migraines 346.90 and Elevated blood pressure (not hypertension) 796.2 [facility] [address] [facility] [place] [id number] [address] [place] [id number] May, Fibromyalgia 729.1 ; Nontoxi c uninodular goiter 241.0 ; Lumbago 724.2 ; Restless leg syndrome 333.94 and Migraines 346.90 [facility] [address] [facility] [place] [id number] [address] [place] [id number] Feb, [facility] [address] [facility] [place] [id number] [address] [place] [id number] Feb, [facility] [address] [facility] [place] [id number] [address] [place] [phone] Jan, [facility] [address] [id number] [address] [place] [id number] Jan, [facility] [address] [id number] [address] [place] [phone] Jan, [facility] [address] [id number] [address] [place] [id number] Jan, [facility] [address] [facility] [place] [id number] [address] [place] [id number] Jan, [facility] [address] [facility] [place] [id number] [address] [place] [id number] Jan, [facility] [address] [id number] [address] [place] [address], [place] [id number] Jan, [facility] [address] [id number] [address] [place] [address], [place] [id number] Jan, [facility] [address] [id number] [address] [place] [address], [place] [id number] Dec, 2014 [facility] [address] [id number] [address] [place] [address], [place] [id number] Dec, 2014 [facility] [address] [id number] [address] [place] [address], [place] [id number] Dec, 2014 [facility] [address] [id number] [address] [place] [address], [place] [id number] Dec, 2014 [facility] [address] [id number] [address] [place] [address], [place] [id number] Dec, 2014 [facility] [address] [id number] [address] [place] [address], [place] [id number] Dec, 2014 [facility] [address] [id number] [address] [place] [address], [place] [id number] Dec, 2014 [facility] [address] [id number] [address] [place] [address], [place] [id number] Dec, 2014 [facility] [address] [id number] [address] [place] [address], [place] [id number] Dec, 2014 [facility] [address] [id number] [address] [place] [address], [place] [id number] Dec, 2014 [facility] [address] [id number] [address] [place] [address], [place] [id number] Dec, 2014 [facility] [address] [id number] [address] [place] [address], [place] [id number] Nov, [facility] [address] [id number] [address] [place] [address], [place] [id number] Nov, IMMUNIZATIONS No Known Immunizations SOCIAL HISTORY Never Assessed REASON FOR VISIT PLAN OF CARE VITAL SIGNS MEDICATIONS No Known Medications RESULTS No Results PROCEDURES No Known procedures [...]
--- OUTSIDE RECORDS SUMMARY | 2020-02-04 14:55 | XMS REPORT ---
Author Author Caitie Garcia Organization [facility] Address [address] [place] [address] Care Team Providers Care Deaf Teacher Name Role Phone ED Garcia Unavailable PROBLEMS Type Condition ICD9-CM Code EBJ11-LC Code Onset Dates Condition S tatus SNOMED Code Problem Restless leg syndrome G25.81 Active 12370590 Problem Vitamin D deficiency E55.9 Active 41027916 Problem Fibromyalgia M79.7 Active 9081821 7 Problem Degenerative disc disease, lumbar M51.36 Active 82575702 Problem Migraines G43.909 Active 97279491 Problem HTN (hypertension) I10 Active 3 2616080 Problem Muscle spasms of both lower extremities M62.838 Active 353291957 Problem OAB (overactive bladder) N32.81 Activ e 584861577 Problem Chronic pain disorder G89.4 Active 608300197 Problem Overweight (BMI 25.0-29.9) E66.3 Act ramana 253858963 Problem Anxiety F41.9 Active 09773233 Problem Angina at rest I20.8 Active 28832 8000 Problem Hyperlipemia E78.5 Active 5175958 4 Problem Chronic, continuous use of opioids F11.90 Active 684958965 Problem Type 2 diabetes mellitus wit h hyperglycemia, without long-term current use of insulin E11.65 Active 37434480 Problem Type 2 diabetes mellitus wit h diabetic polyneuropathy, without long-term current use of insulin E11.42 Active 00923 006 Problem Chronic tension-type headache, intractable G44.221 Active 511014546 ALLERGIES No Information ENCOUNTERS Encounter Location Date Diagnosis [address] [address] May, Adverse effect of drug, initial encounte r T50.905A and Acute conjunctivitis of both eyes, unspecified acute conjunctivitis type H10.[address] [address] Apr, [address] [address] Apr, [address] [address] Apr, Type 2 diabetes mellitus with hyperglyce wayne, without long-term current use of insulin E11.65 and Hyperlipemia E78.[address] [address] Apr, Fibromyalgia M79.7 ; High risk medicatio ns (not anticoagulants) long- term use Z79.899 ; Chronic pain disorder G89.4 ; Type 2 diabetes mellitus with diabetic polyneuropathy, without long-term current use of insulin E11.42 ; HTN (hypertension) I10 and Hyperlipemia E78.[address] [address] Apr, Degenerative disc disease, lumbar M51.36 [facility] [address] [facility] [place] [address] Apr, Drug screening, pre-employment Z02.[address] [address] March, [place] [address] [address] [facility] [id number] [address] [place] [address] March, HTN (hypertension) I10 ; Hyp erlipemia E78.5 ; Type 2 diabetes mellitus with hyperglycemia, without long-term current use of insulin E11.65 and Degenerative disc disease, lumbar M51.36 [facility] [address] [facility] [place] [address] March, Degenerative disc disease, lumbar M51.36 [facility] [address] [id number] [address] [place] [phone] March, [facility] [address] [id number] [address] [place] [phone] Feb, [facility] [address] [id number] [address] [place] [address] Feb, Degenerative disc disease, l umbar M51.[address] [address] Feb, Degenerative disc disease, lumbar M51.[address] [address] Feb, Degenerative disc disease, lumbar M51.36 [facility] [address] [facility] [id number] [address] [place] [address] Feb, [address] [address] Feb, [address] [address] Feb, [address] [address] Jan, Screening mammogram, encounter for Z12.[address] [address] Jan, Urine frequency R35.0 ; Degenerative dis c disease, lumbar M51.36 and Encounter for Papanicolaou smear for cervical cancer screening Z12.[address] [address] Jan, Fibromyalgia M79.[address] [address] Jan, [address] [address] Jan, Degenerative disc disease, lumbar M51.36 and Fibromyalgia M79.[address] [address] Jan, [address] [address] Jan, [address] [address] Jan, Degenerative disc disease, lumbar M51.36 ; Fibromyalgia M79.7 and Type 2 diabetes mellitus with diabetic polyneuropathy, without long-term current use of insulin E11.[address] [address] Dec, [address] [address] Dec, [address] [address] Dec, Fibromyalgia M79.[address] [address] Dec, [facility] [address] [facility] [id number] [address] [place] [phone] Dec, [address] [address] Dec, Degenerative disc disease, lumbar M51.36 ; HTN (hypertension) I10 ; Chronic pain disorder G89.4 ; Hyperlipemia E78.5 and Type 2 diabetes mellitus with diabetic polyneuropathy, without long-term current use of insulin E11.42 [place] [address] [facility] [id number] [address] [place] [phone] Dec, Chronic pain disorder G89.4 [facility] [address] [facility] [id number] [address] [place] [address] Dec, Chronic pain disorder G89.4 [facility] [address] [facility] [id number] [address] [place] [address] Nov, Fibromyalgia M79.7 [facility] [address] [facility] [id number] [address] [place] [phone] Nov, [facility] [address] [facility] [id number] [address] [place] [address] Nov, Fibromyalgia M79.7 ; Degener ative disc disease, lumbar M51.36 and Type 2 diabetes mellitus with hyperglycemia, without long-term current use of insulin E11.65 [facility] [address] [facility] [id number] [address] [place] [id number] Oct, Degenerative disc disease, l umbar M51.36 [facility] [address] [facility] [id number] [address] [place] [phone] Sep, Fibromyalgia M79.7 ; Degener ative disc disease, lumbar M51.36 and Restless leg syndrome G25.81 [facility] [address] [id number] [address] [place] [phone] 07 Sep, 2018 Fibromyalgia M79.7 [facility] [address] [facility] [id number] [address] [place] [id number] 05 Sep, 2018 [facility] [address] [facility] [id number] [address] [place] [address] Aug, [facility] [address] [id number] [address] [place] [id number] Aug, Chronic pain disorder G89.4 [facility] [address] [facility] [id number] [address] [place] [id number] 14 Jul, 2018 HTN (hypertension) I10 ; Typ e 2 diabetes mellitus with hyperglycemia, without long-term current use of insulin E11.65 ; Overweight (BMI 25.0-29.9) E66.3 ; Fibromyalgia M79.7 ; Restless leg syndrome G25.81 ; Chronic pain disorder G89.4 ; Hyperlipemia E78.5 and Angina at rest I20.8 [facility] [address] [facility] [id number] [address] [place] [phone] 13 Jul, 2018 [facility] [address] [facility] [id number] [address] [place] [address] Jul, Restless leg syndrome G25.81 [facility] [address] [facility] [id number] [address] [place] [address] Jun, Fibromyalgia M79.7 [facility] [address] [id number] [address] [place] [phone] Jun, Chronic pain disorder G89.4 [facility] [address] [facility] [id number] [address] [place] [id number] 15 Jun, 2018 [facility] [address] [facility] [id number] [address] [place] [phone] May, [facility] [address] [facility] [id number] [address] [place] [address] May, Vitamin D deficiency E55.9 [facility] [address] [facility] [id number] [address] [place] [address] May, Vitamin D deficiency E55.9 [facility] [place] [address] [address] [place] [id number] [place] [phone] May, Chronic pain disorder G89.4 [place] [address] [address] [facility] [id number] [address] [place] [address] May, Chronic pain disorder G89.4 [place] [address] [address] [facility] [id number] [address] [place] [phone] Apr, Chronic pain disorder G89.4 [place] [address] [address] [facility] [id number] [address] [place] [address] Apr, Type 2 diabetes mellitus wit h diabetic polyneuropathy, without long-term current use of insulin E11.42 ; HTN (hypertension) I10 ; Hyperlipemia E78.5 ; Fibromyalgia M79.7 ; Degenerative disc disease, lumbar M51.36 ; Chronic pain disorder G89.4 ; Chronic, continuous use of opioids F11.90 ; Vitamin D deficiency E55.9 ; Anxiety F41.9 ; Chronic tension-type headache, intractable G44.221 and Overweight (BMI 25.0-29.9) E66.3 [place] [address] [address] [facility] [id number] [address] [place] [phone] March, Chronic pain disorder G89.4 [facility] [address] [facility] [id number] [address] [place] [phone] March, Type 2 diabetes mellitus wit h diabetic polyneuropathy, without long-term current use of insulin E11.42 [place] [address] [address] [facility] [id number] [address] [place] [phone] Feb, Chronic pain disorder G89.4 [place] [address] [address] [facility] [id number] [address] [place] [phone] Jan, [place] [address] [address] [place] [id number] [address] [place] [address] Jan, Pharyngitis, unspecified vashti ology J02.9 ; Fibromyalgia M79.7 and Chronic pain disorder G89.4 [place] [address] [address] [place] [id number] [address] [place] [address] Jan, [place] [address] [address] Jan, [place] [address] [address] Jan, [place] [address] [address] Jan, Type 2 diabetes mellitus wit h diabetic polyneuropathy, without long-term current use of insulin E11.42 ; Type 2 diabetes mellitus with hyperglycemia, without long-term current use of insulin E11.65 ; Degenerative disc disease, lumbar M51.36 ; Fibromyalgia M79.7 ; Restless leg syndrome G25.81 ; HTN (hypertension) I10 ; Hyperlipemia E78.5 ; Anxiety F41.9 ; Migraines G43.909 and High risk medication use Z79.899 [place] [address] [address] Dec, Chronic pain disorder G89.4 [place] [address] [address] Nov, Chronic pain disorder G89.4 [place] [address] [address] [place] [id number] [address] [place] [address] Nov, [place] [address] [address] Nov, Type 2 diabetes mellitus wit h hyperglycemia, without long-term current use of insulin E11.65 ; HTN (hypertension) I10 ; Hyperlipemia E78.5 ; Restless leg syndrome G25.81 ; Fibromyalgia M79.7 ; Chronic tension-type headache, intractable G44.221 ; Migraines G43.909 ; Chronic pain disorder G89.4 and Overweight (BMI 25.0-29.9) E66.3 [facility] [address] [place] [id number] [place] [phone] Nov, [facility] [address] [place] [id number] [place] [phone] Oct, Degenerative disc disease, l umbar M51.36 [place] [address] [address] [place] [id number] [place] [address] Sep, Degenerative disc disease, l umbar M51.36 [place] [address] [address] [place] [id number] [place] [address] Sep, [place] [address] [address] [place] [id number] [place] [phone] Aug, Degenerative disc disease, l umbar M51.36 [place] [address] [address] Aug, Fall from height of greater than 3 feet W19.XXXA ; Hematoma of left hip, subsequent encounter S70.02XD ; Fibromyalgia M79.7 ; Muscle spasms of both lower extremities M62.838 ; Anxiety F41.9 ; Degenerative disc disease, lumbar M51.36 ; Chronic pain disorder G89.4 and Chronic, continuous use of opioids F11.90 [place] [address] [address] Jul, [place] [address] [address] [place] [id number] [place] [address] Jul, Degenerative disc disease, l umbar M51.36 [place] [address] [address] [place] [id number] [place] [address] Jun, Degenerative disc disease, l umbar M51.36 [place] [address] [address] [place] [id number] [address] [place] [address] May, Degenerative disc disease, l umbar M51.36 [place] [address] [address] [place] [id number] [place] [address], [place] [address] May, [facility] [address] [id number] [address] [place] [id number] Apr, Degenerative disc disease, l umbar M51.36 [facility] [address] [id number] [address] [place] [id number] Apr, Degenerative disc disease, l umbar M51.36 [facility] [address] [id number] [address] [place] [address] March, Degenerative disc disease, l umbar M51.36 and Fall (on) (from) other stairs and steps, initial encounter W10.8XXA [facility] [address] [id number] [address] [place] [phone] March, [facility] [address] [id number] [address] [place] [phone] March, [facility] [address] [id number] [address] [place] [phone] March, [facility] [address] [id number] [address] [place] [address] March, [facility] [address] [id number] [address] [place] [phone] Feb, [facility] [address] [id number] [address] [place] [address] Jan, Fibromyalgia M79.7 [facility] [address] [id number] [address] [place] [phone] Jan, [facility] [address] [id number] [address] [place] [phone] Dec, Degenerative disc disease, l umbar M51.36 [facility] [address] [id number] [address] [place] [id number] Dec, [facility] [address] [id number] [address] [place] [address] Nov, Degenerative disc disease, l umbar M51.36 ; Fibromyalgia M79.7 ; Restless leg syndrome G25.81 ; HTN (hypertension) I10 ; Hyperlipemia E78.5 ; Chronic tension-type headache, intractable G44.221 and OAB (overactive bladder) N32.81 [facility] [address] [facility] [id number] [address] [place] [phone] Nov, [facility] [address] [facility] [id number] [address] [place] [id number] Oct, [facility] [address] [facility] [id number] [address] [place] [phone] Oct, [place] [address] [id number] [place], [facility] [id number] Oct, [facility] [address] [facility] [id number] [address] [place] [phone] Sep, [facility] [address] [facility] [id number] [address] [place] [phone] Aug, [facility] [address] [facility] [id number] [address] [place] [phone] Aug, [facility] [address] [facility] [id number] [address] [place] [address] Aug, Degenerative disc disease, l umbar M51.36 [facility] [address] [facility] [id number] [address] [place] [address] Aug, Degenerative disc disease, l umbar M51.36 ; Fibromyalgia M79.7 ; Migraines G43.909 ; Hyperlipemia E78.5 ; Muscle spasms of both lower extremities M62.838 ; Chronic tension-type headache, intractable G44.221 ; HTN (hypertension) I10 and Restless leg syndrome G25.81 [facility] [address] [facility] [id number] [address] [place] [id number] Jul, [facility] [address] [facility] [id number] [address] [place] [id number] Jul, [facility] [address] [id number] [address] [place] [address] Jul, [facility] [address] [id number] [address] [place] [phone] Jun, Chronic tension-type headach e, intractable G44.221 ; Muscle spasms of both lower extremities M62.838 ; Fibromyalgia M79.7 ; Degenerative disc disease, lumbar M51.36 ; Restless leg syndrome G25.81 ; Migraines G43.909 ; Hyperlipemia E78.5 and Anxiety F41.9 [facility] [address] [id number] [address] [place] [address] Jun, [facility] [address] [id number] [address] [place] [phone] Jun, [facility] [address] [id number] [address] [place] [id number] Jun, [facility] [address] [id number] [address] [place] [address] Jun, [facility] [address] [id number] [address] [place] [phone] May, Sebaceous cyst L72.3 [facility] [address] [id number] [address] [place] [phone] May, Low back pain M54.5 [facility] [address] [id number] [address] [place] [id number] Apr, [facility] [address] [id number] [address] [place] [phone] Apr, Fibromyalgia M79.7 [facility] [address] [id number] [address] [place] [phone] Apr, Degenerative disc disease, l umbar M51.36 ; Fibromyalgia M79.7 ; Migraines G43.909 ; Hyperlipemia E78.5 ; Restless leg syndrome G25.81 ; Other intractable trigeminal autonomic cephalgia (TAC) G44.091 ; Secondary hypertension I15.9 and Anxiety F41.9 [facility] [address] [facility] [id number] [address] [place] [phone] March, 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.899 and HTN (hypertension) I10 [facility] [address] [facility] [id number] [address] [place] [phone] March, Fibromyalgia M79.7 [facility] [address] [facility] [id number] [address] [place] [phone] Feb, [facility] [address] [facility] [id number] [address] [place] [phone] Feb, [facility] [address] [place] [id number] [address] [place] [phone] Feb, [facility] [address] [place] [id number] [address] [place] [phone] Feb, Hyperlipemia E78.5 [facility] [address] [facility] [id number] [address] [place] [address] Feb, Migraines G43.909 ; Fibromya lgia M79.7 ; Degenerative disc disease, lumbar M51.36 ; Restless leg syndrome G25.81 ; HTN (hypertension) I10 and Tobacco abuse counseling Z71.6 [facility] [address] [facility] [id number] [address] [place] [phone] Feb, [facility] [address] [facility] [id number] [address] [place] [phone] Jan, [facility] [address] [facility] [id number] [address] [place] [id number] Jan, [facility] [address] [facility] [id number] [address] [place] [phone] Dec, [facility] [address] [place] [id number] [address] [place] [id number] Dec, Degenerative disc disease, l umbar M51.36 ; Restless leg syndrome G25.81 ; Migraines G43.909 ; HTN (hypertension) I10 ; Fibromyalgia M79.7 and Other prison (current) drug therapy Z79.899 [facility] [address] [id number] [address] [place] [phone] Dec, [facility] [address] [id number] [address] [place] [phone] Nov, [facility] [address] [id number] [address] [place] [phone] Nov, [facility] [address] [id number] [address] [place] [id number] Oct, [facility] [address] [facility] [id number] [address] [place] [phone] Oct, [facility] [address] [facility] [id number] [address] [place] [phone] Oct, [facility] [address] [facility] [id number] [address] [place] [phone] Sep, [facility] [address] [facility] [id number] [address] [place] [phone] Sep, Routine gynecological examin ation V72.31 ; Degenerative disc disease, lumbar M51.36 ; Fibromyalgia M79.7 ; Restless leg syndrome G25.81 ; Migraines G43.909 and Well woman exam Z01.419 [facility] [address] [id number] [address] [place] [phone] Sep, [facility] [address] [id number] [address] [place] [phone] Aug, [facility] [address] [facility] [id number] [address] [place] [phone] Aug, Migraines G43.909 ; Degenera tive disc disease, lumbar M51.36 ; Fibromyalgia M79.7 ; Restless leg syndrome G25.81 and HTN (hypertension) I10 [facility] [address] [facility] [id number] [address] [place] [phone] Aug, [facility] [address] [id number] [address] [place] [phone] Aug, [facility] [address] [id number] [address] [place] [phone] Jul, [facility] [address] [facility] [id number] [address] [place] [phone] Jul, [facility] [address] [facility] [id number] [address] [place] [id number] Jun, Fibromyalgia 729.1 ; Lumbago 724.2 ; Restless leg syndrome 333.94 ; Migraines 346.90 and Elevated blood pressure (not hypertension) 796.2 [facility] [address] [facility] [id number] [address] [place] [phone] May, Fibromyalgia 729.1 ; Nontoxi c uninodular goiter 241.0 ; Lumbago 724.2 ; Restless leg syndrome 333.94 and Migraines 346.90 [facility] [address] [facility] [id number] [address] [place] [phone] Feb, [facility] [address] [facility] [id number] [address] [place] [phone] Feb, [facility] [address] [facility] [id number] [address] [place] [phone] Jan, [facility] [address] [id number] [address] [place] [phone] Jan, [facility] [address] [id number] [address] [place] [phone] Jan, [facility] [address] [id number] [address] [place] [phone] Jan, [facility] [address] [facility] [id number] [address] [place] [phone] Jan, [facility] [address] [facility] [id number] [address] [place] [id number] Jan, [facility] [address] [id number] [address] [place] [address], [place] [address] Jan, [facility] [address] [id number] [address] [place] [address], [place] [address] Jan, [facility] [address] [id number] [address] [place] [address], [place] [address] Dec, 2014 [facility] [address] [id number] [address] [place] [address], [place] [address] Dec, 2014 [facility] [address] [id number] [address] [place] [address], [place] [address] Dec, 2014 [facility] [address] [id number] [address] [place] [address], [place] [address] Dec, 2014 [facility] [address] [id number] [address] [place] [address], [place] [address] Dec, 2014 [facility] [address] [id number] [address] [place] [address], [place] [address] Dec, 2014 [facility] [address] [id number] [address] [place] [address], [place] [address] Dec, 2014 [facility] [address] [id number] [address] [place] [address], [place] [address] Dec, 2014 [facility] [address] [id number] [address] [place] [address], [place] [address] Dec, 2014 [facility] [address] [id number] [address] [place] [address], [place] [address] Dec, 2014 [facility] [address] [id number] [address] [place] [address], [place] [address] Dec, 2014 [facility] [address] [id number] [address] [place] [address], [place] [address] Nov, [facility] [address] [id number] [address] [place] [address], [place] [address] Nov, IMMUNIZATIONS No Known Immunizations SOCIAL HISTORY [...]
--- OUTSIDE RECORDS SUMMARY | 2020-02-04 14:55 | XMS REPORT ---
Author Author Caitie Garcia Organization [facility] Address [address] [place] [address] Care Team Providers Care Income Tax Investigator Name Role Phone ED Garcia Unavailable PROBLEMS Type Condition ICD9-CM Code CQV48-XD Code Onset Dates Condition S tatus SNOMED Code Problem Restless leg syndrome G25.81 Active 00143227 Problem Vitamin D deficiency E55.9 Active 13932271 Problem Fibromyalgia M79.7 Active 6484041 7 Problem Degenerative disc disease, lumbar M51.36 Active 65314699 Problem Migraines G43.909 Active 81645010 Problem HTN (hypertension) I10 Active 3 5588630 Problem Muscle spasms of both lower extremities M62.838 Active 051796831 Problem OAB (overactive bladder) N32.81 Activ e 328772086 Problem Chronic pain disorder G89.4 Active 007109374 Problem Overweight (BMI 25.0-29.9) E66.3 Act ramana 775534794 Problem Anxiety F41.9 Active 36731709 Problem Angina at rest I20.8 Active 08640 8000 Problem Hyperlipemia E78.5 Active 0519089 4 Problem Chronic, continuous use of opioids F11.90 Active 088588858 Problem Type 2 diabetes mellitus wit h hyperglycemia, without long-term current use of insulin E11.65 Active 69752840 Problem Type 2 diabetes mellitus wit h diabetic polyneuropathy, without long-term current use of insulin E11.42 Active 34867 006 Problem Chronic tension-type headache, intractable G44.221 Active 938203331 ALLERGIES No Information ENCOUNTERS Encounter Location Date Diagnosis [address] [address] May, Adverse effect of drug, initial encounte r T50.905A and Acute conjunctivitis of both eyes, unspecified acute conjunctivitis type H10.[address] [address] Apr, [address] [address] Apr, [address] [address] Apr, Type 2 diabetes mellitus with hyperglyce wayne, without long-term current use of insulin E11.65 and Hyperlipemia E78.[address] [address] Apr, Fibromyalgia M79.7 ; High risk medicatio ns (not anticoagulants) long- term use Z79.899 ; Chronic pain disorder G89.4 ; Type 2 diabetes mellitus with diabetic polyneuropathy, without long-term current use of insulin E11.42 ; HTN (hypertension) I10 and Hyperlipemia E78.[address] [address] Apr, Degenerative disc disease, lumbar M51.36 [facility] [address] [place] [address] Apr, Drug screening, pre-employment Z02.[address] [address] March, [place] [address] [facility] [id number] [address] [place] [address] March, HTN (hypertension) I10 ; Hyp erlipemia E78.5 ; Type 2 diabetes mellitus with hyperglycemia, without long-term current use of insulin E11.65 and Degenerative disc disease, lumbar M51.36 [facility] [address] [facility] [place] [address] March, Degenerative disc disease, lumbar M51.36 [facility] [address] [id number] [address] [place] [id number] March, [facility] [address] [id number] [address] [place] [phone] Feb, [facility] [address] [id number] [address] [place] [phone] Feb, Degenerative disc disease, l umbar M51.[address] [address] Feb, Degenerative disc disease, lumbar M51.[address] [address] Feb, Degenerative disc disease, lumbar M51.36 [facility] [address] [facility] [id number] [address] [place] [address] Feb, [address] [address] Feb, [address] [address] Feb, [address] [address] Jan, Screening mammogram, encounter for Z12.[address] [address] Jan, Urine frequency R35.0 ; Degenerative dis c disease, lumbar M51.36 and Encounter for Papanicolaou smear for cervical cancer screening Z12.[address] [address] Jan, Fibromyalgia M79.[address] [address] Jan, [address] [address] Jan, Degenerative disc disease, lumbar M51.36 and Fibromyalgia M79.[address] [address] Jan, [address] [address] Jan, [address] [address] Jan, Degenerative disc disease, lumbar M51.36 ; Fibromyalgia M79.7 and Type 2 diabetes mellitus with diabetic polyneuropathy, without long-term current use of insulin E11.[address] [address] Dec, [address] [address] Dec, [address] [address] Dec, Fibromyalgia M79.[address] [address] Dec, [facility] [address] [facility] [id number] [address] [place] [address] Dec, [address] [address] Dec, Degenerative disc disease, lumbar M51.36 ; HTN (hypertension) I10 ; Chronic pain disorder G89.4 ; Hyperlipemia E78.5 and Type 2 diabetes mellitus with diabetic polyneuropathy, without long-term current use of insulin E11.42 [place] [address] [facility] [id number] [address] [place] [address] Dec, Chronic pain disorder G89.4 [facility] [address] [facility] [id number] [address] [place] [address] Dec, Chronic pain disorder G89.4 [facility] [address] [facility] [id number] [address] [place] [address] Nov, Fibromyalgia M79.7 [facility] [address] [facility] [id number] [address] [place] [phone] Nov, [facility] [address] [facility] [id number] [address] [place] [phone] Nov, Fibromyalgia M79.7 ; Degener ative disc disease, lumbar M51.36 and Type 2 diabetes mellitus with hyperglycemia, without long-term current use of insulin E11.65 [facility] [address] [facility] [id number] [address] [place] [address] Oct, Degenerative disc disease, l umbar M51.36 [facility] [address] [facility] [id number] [address] [place] [address] Sep, Fibromyalgia M79.7 ; Degener ative disc disease, lumbar M51.36 and Restless leg syndrome G25.81 [facility] [address] [id number] [address] [place] [id number] 07 Sep, 2018 Fibromyalgia M79.7 [facility] [address] [facility] [id number] [address] [place] [phone] 05 Sep, 2018 [facility] [address] [facility] [id number] [address] [place] [address] Aug, [facility] [address] [id number] [address] [place] [address] Aug, Chronic pain disorder G89.4 [facility] [address] [facility] [id number] [address] [place] [id number] 14 Jul, 2018 HTN (hypertension) I10 ; Typ e 2 diabetes mellitus with hyperglycemia, without long-term current use of insulin E11.65 ; Overweight (BMI 25.0-29.9) E66.3 ; Fibromyalgia M79.7 ; Restless leg syndrome G25.81 ; Chronic pain disorder G89.4 ; Hyperlipemia E78.5 and Angina at rest I20.8 [facility] [address] [facility] [id number] [address] [place] [id number] 13 Jul, 2018 [facility] [address] [facility] [id number] [address] [place] [phone] Jul, Restless leg syndrome G25.81 [facility] [address] [facility] [id number] [address] [place] [phone] Jun, Fibromyalgia M79.7 [facility] [address] [id number] [address] [place] [phone] Jun, Chronic pain disorder G89.4 [facility] [address] [facility] [id number] [address] [place] [id number] 15 Jun, 2018 [facility] [address] [facility] [id number] [address] [place] [phone] May, [facility] [address] [facility] [id number] [address] [place] [address] May, Vitamin D deficiency E55.9 [facility] [address] [facility] [id number] [address] [place] [phone] May, Vitamin D deficiency E55.9 [facility] [place] [address] [id number] [place] [phone] May, Chronic pain disorder G89.4 [place] [address] [facility] [id number] [address] [place] [phone] May, Chronic pain disorder G89.4 [place] [address] [facility] [id number] [address] [place] [id number] Apr, Chronic pain disorder G89.4 [place] [address] [facility] [id number] [address] [place] [address] Apr, Type 2 diabetes mellitus wit h diabetic polyneuropathy, without long-term current use of insulin E11.42 ; HTN (hypertension) I10 ; Hyperlipemia E78.5 ; Fibromyalgia M79.7 ; Degenerative disc disease, lumbar M51.36 ; Chronic pain disorder G89.4 ; Chronic, continuous use of opioids F11.90 ; Vitamin D deficiency E55.9 ; Anxiety F41.9 ; Chronic tension-type headache, intractable G44.221 and Overweight (BMI 25.0-29.9) E66.3 [place] [address] [facility] [id number] [address] [place] [id number] March, Chronic pain disorder G89.4 [facility] [address] [facility] [id number] [address] [place] [phone] March, Type 2 diabetes mellitus wit h diabetic polyneuropathy, without long-term current use of insulin E11.42 [place] [address] [facility] [id number] [address] [place] [phone] Feb, Chronic pain disorder G89.4 [place] [address] [facility] [id number] [address] [place] [id number] Jan, [place] [address] [address] [place] [id number] [address] [place] [phone] Jan, Pharyngitis, unspecified vashti ology J02.9 ; Fibromyalgia M79.7 and Chronic pain disorder G89.4 [place] [address] [address] [place] [id number] [address] [place] [address] Jan, [place] [address] [address] Jan, [place] [address] [address] Jan, [place] [address] [address] Jan, Type 2 diabetes mellitus wit h diabetic polyneuropathy, without long-term current use of insulin E11.42 ; Type 2 diabetes mellitus with hyperglycemia, without long-term current use of insulin E11.65 ; Degenerative disc disease, lumbar M51.36 ; Fibromyalgia M79.7 ; Restless leg syndrome G25.81 ; HTN (hypertension) I10 ; Hyperlipemia E78.5 ; Anxiety F41.9 ; Migraines G43.909 and High risk medication use Z79.899 [place] [address] [address] Dec, Chronic pain disorder G89.4 [place] [address] [address] Nov, Chronic pain disorder G89.4 [place] [address] [place] [id number] [address] [place] [address] Nov, [place] [address] [address] Nov, Type 2 diabetes mellitus wit h hyperglycemia, without long-term current use of insulin E11.65 ; HTN (hypertension) I10 ; Hyperlipemia E78.5 ; Restless leg syndrome G25.81 ; Fibromyalgia M79.7 ; Chronic tension-type headache, intractable G44.221 ; Migraines G43.909 ; Chronic pain disorder G89.4 and Overweight (BMI 25.0-29.9) E66.3 [facility] [address] [place] [id number] [place] [phone] Nov, [facility] [address] [place] [id number] [place] [address] Oct, Degenerative disc disease, l umbar M51.36 [place] [address] [place] [id number] [place] [address] Sep, Degenerative disc disease, l umbar M51.36 [place] [address] [place] [id number] [place] [address] Sep, [place] [address] [place] [id number] [place] [address] Aug, Degenerative disc disease, l umbar M51.36 [place] [address] [address] Aug, Fall from height of greater than 3 feet W19.XXXA ; Hematoma of left hip, subsequent encounter S70.02XD ; Fibromyalgia M79.7 ; Muscle spasms of both lower extremities M62.838 ; Anxiety F41.9 ; Degenerative disc disease, lumbar M51.36 ; Chronic pain disorder G89.4 and Chronic, continuous use of opioids F11.90 [place] [address] [address] Jul, [place] [address] [place] [id number] [place] [address] Jul, Degenerative disc disease, l umbar M51.36 [place] [address] [place] [id number] [place] [address] Jun, Degenerative disc disease, l umbar M51.36 [place] [address] [place] [id number] [address] [place] [id number] May, Degenerative disc disease, l umbar M51.36 [place] [address] [place] [id number] [place] [address], [place] [address] May, [facility] [address] [id number] [address] [place] [id number] Apr, Degenerative disc disease, l umbar M51.36 [facility] [address] [id number] [address] [place] [id number] Apr, Degenerative disc disease, l umbar M51.36 [facility] [address] [id number] [address] [place] [address] March, Degenerative disc disease, l umbar M51.36 and Fall (on) (from) other stairs and steps, initial encounter W10.8XXA [facility] [address] [id number] [address] [place] [id number] March, [facility] [address] [id number] [address] [place] [phone] March, [facility] [address] [id number] [address] [place] [address] March, [facility] [address] [id number] [address] [place] [id number] March, [facility] [address] [id number] [address] [place] [id number] Feb, [facility] [address] [id number] [address] [place] [phone] Jan, Fibromyalgia M79.7 [facility] [address] [id number] [address] [place] [id number] Jan, [facility] [address] [id number] [address] [place] [address] Dec, Degenerative disc disease, l umbar M51.36 [facility] [address] [id number] [address] [place] [id number] Dec, [facility] [address] [id number] [address] [place] [address] Nov, Degenerative disc disease, l umbar M51.36 ; Fibromyalgia M79.7 ; Restless leg syndrome G25.81 ; HTN (hypertension) I10 ; Hyperlipemia E78.5 ; Chronic tension-type headache, intractable G44.221 and OAB (overactive bladder) N32.81 [facility] [address] [facility] [id number] [address] [place] [phone] Nov, [facility] [address] [facility] [id number] [address] [place] [id number] Oct, [facility] [address] [facility] [id number] [address] [place] [phone] Oct, [place] [address] [id number] [place] [id number] Oct, [facility] [address] [facility] [id number] [address] [place] [id number] Sep, [facility] [address] [facility] [id number] [address] [place] [address] Aug, [facility] [address] [facility] [id number] [address] [place] [phone] Aug, [facility] [address] [facility] [id number] [address] [place] [id number] Aug, Degenerative disc disease, l umbar M51.36 [facility] [address] [facility] [id number] [address] [place] [id number] Aug, Degenerative disc disease, l umbar M51.36 ; Fibromyalgia M79.7 ; Migraines G43.909 ; Hyperlipemia E78.5 ; Muscle spasms of both lower extremities M62.838 ; Chronic tension-type headache, intractable G44.221 ; HTN (hypertension) I10 and Restless leg syndrome G25.81 [facility] [address] [facility] [id number] [address] [place] [id number] Jul, [facility] [address] [facility] [id number] [address] [place] [address] Jul, [facility] [address] [id number] [address] [place] [id number] Jul, [facility] [address] [id number] [address] [place] [address] Jun, Chronic tension-type headach e, intractable G44.221 ; Muscle spasms of both lower extremities M62.838 ; Fibromyalgia M79.7 ; Degenerative disc disease, lumbar M51.36 ; Restless leg syndrome G25.81 ; Migraines G43.909 ; Hyperlipemia E78.5 and Anxiety F41.9 [facility] [address] [id number] [address] [place] [address] Jun, [facility] [address] [id number] [address] [place] [id number] Jun, [facility] [address] [id number] [address] [place] [address] Jun, [facility] [address] [id number] [address] [place] [address] Jun, [facility] [address] [id number] [address] [place] [address] May, Sebaceous cyst L72.3 [facility] [address] [id number] [address] [place] [phone] May, Low back pain M54.5 [facility] [address] [id number] [address] [place] [id number] Apr, [facility] [address] [id number] [address] [place] [phone] Apr, Fibromyalgia M79.7 [facility] [address] [id number] [address] [place] [id number] Apr, Degenerative disc disease, l umbar M51.36 ; Fibromyalgia M79.7 ; Migraines G43.909 ; Hyperlipemia E78.5 ; Restless leg syndrome G25.81 ; Other intractable trigeminal autonomic cephalgia (TAC) G44.091 ; Secondary hypertension I15.9 and Anxiety F41.9 [facility] [address] 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 [id number] [address] [place] [id number] March, Fibromyalgia M79.7 [facility] [address] [facility] [id number] [address] [place] [phone] Feb, [facility] [address] [facility] [id number] [address] [place] [address] Feb, [facility] [address] [place] [id number] [address] [place] [id number] Feb, [facility] [address] [place] [id number] [address] [place] [phone] Feb, Hyperlipemia E78.5 [facility] [address] [facility] [id number] [address] [place] [id number] Feb, Migraines G43.909 ; Fibromya lgia M79.7 ; Degenerative disc disease, lumbar M51.36 ; Restless leg syndrome G25.81 ; HTN (hypertension) I10 and Tobacco abuse counseling Z71.6 [facility] [address] [facility] [id number] [address] [place] [phone] Feb, [facility] [address] [facility] [id number] [address] [place] [id number] Jan, [facility] [address] [facility] [id number] [address] [place] [phone] Jan, [facility] [address] [facility] [id number] [address] [place] [phone] Dec, [facility] [address] [place] [id number] [address] [place] [id number] Dec, Degenerative disc disease, l umbar M51.36 ; Restless leg syndrome G25.81 ; Migraines G43.909 ; HTN (hypertension) I10 ; Fibromyalgia M79.7 and Other half-way (current) drug therapy Z79.899 [facility] [address] [id number] [address] [place] [phone] Dec, [facility] [address] [id number] [address] [place] [phone] Nov, [facility] [address] [id number] [address] [place] [phone] Nov, [facility] [address] [id number] [address] [place] [phone] Oct, [facility] [address] [facility] [id number] [address] [place] [phone] Oct, [facility] [address] [facility] [id number] [address] [place] [id number] Oct, [facility] [address] [facility] [id number] [address] [place] [id number] Sep, [facility] [address] [facility] [id number] [address] [place] [phone] Sep, Routine gynecological examin ation V72.31 ; Degenerative disc disease, lumbar M51.36 ; Fibromyalgia M79.7 ; Restless leg syndrome G25.81 ; Migraines G43.909 and Well woman exam Z01.419 [facility] [address] [id number] [address] [place] [id number] Sep, [facility] [address] [id number] [address] [place] [id number] Aug, [facility] [address] [facility] [id number] [address] [place] [id number] Aug, Migraines G43.909 ; Degenera tive disc disease, lumbar M51.36 ; Fibromyalgia M79.7 ; Restless leg syndrome G25.81 and HTN (hypertension) I10 [facility] [address] [facility] [id number] [address] [place] [phone] Aug, [facility] [address] [id number] [address] [place] [id number] Aug, [facility] [address] [id number] [address] [place] [id number] Jul, [facility] [address] [facility] [id number] [address] [place] [id number] Jul, [facility] [address] [facility] [id number] [address] [place] [phone] Jun, Fibromyalgia 729.1 ; Lumbago 724.2 ; Restless leg syndrome 333.94 ; Migraines 346.90 and Elevated blood pressure (not hypertension) 796.2 [facility] [address] [facility] [id number] [address] [place] [phone] May, Fibromyalgia 729.1 ; Nontoxi c uninodular goiter 241.0 ; Lumbago 724.2 ; Restless leg syndrome 333.94 and Migraines 346.90 [facility] [address] [facility] [id number] [address] [place] [phone] Feb, [facility] [address] [facility] [id number] [address] [place] [phone] Feb, [facility] [address] [facility] [id number] [address] [place] [phone] Jan, [facility] [address] [id number] [address] [place] [phone] Jan, [facility] [address] [id number] [address] [place] [phone] Jan, [facility] [address] [id number] [address] [place] [id number] Jan, [facility] [address] [facility] [id number] [address] [place] [phone] Jan, [facility] [address] [facility] [id number] [address] [place] [phone] Jan, [facility] [address] [id number] [address] [place] [address], [place] [id number] Jan, [facility] [address] [id number] [address] [place] [address], [place] [id number] Jan, [facility] [address] [id number] [address] [place] [address], [place] [id number] Dec, 2014 [facility] [address] [id number] [address] [place] [address], [place] [id number] Dec, 2014 [facility] [address] [id number] [address] [place] [address], [place] [id number] Dec, 2014 [facility] [address] [id number] [address] [place] [address], [place] [id number] Dec, 2014 [facility] [address] [id number] [address] [place] [address], [place] [id number] Dec, 2014 [facility] [address] [id number] [address] [place] [address], [place] [id number] Dec, 2014 [facility] [address] [id number] [address] [place] [address], [place] [id number] Dec, 2014 [facility] [address] [id number] [address] [place] [address], [place] [id number] Dec, 2014 [facility] [address] [id number] [address] [place] [address], [place] [id number] Dec, 2014 [facility] [address] [id number] [address] [place] [address], [place] [id number] Dec, 2014 [facility] [address] [id number] [address] [place] [address], [place] [id number] Dec, 2014 [facility] [address] [id number] [address] [place] [address], [place] [id number] Nov, [facility] [address] [id number] [address] [place] [address], [place] [id number] Nov, IMMUNIZATIONS No Known Immunizations SOCIAL HISTORY [...]
--- OUTSIDE RECORDS SUMMARY | 2020-02-04 14:55 | XMS REPORT ---
Author Author Caitie Garcia Organization [facility] Address [address] [place] [address] Care Team Providers Care Workforce Management Analyst Name Role Phone ED Garcia Unavailable PROBLEMS Type Condition ICD9-CM Code [id number] Code Onset Dates Condition S tatus SNOMED Code Problem Restless leg syndrome G25.81 Active 98308442 Problem Vitamin D deficiency E55.9 Active 47223828 Problem Fibromyalgia M79.7 Active 7633515 7 Problem Degenerative disc disease, lumbar M51.36 Active 52183476 Problem Migraines G43.909 Active 75805543 Problem HTN (hypertension) I10 Active 3 6512855 Problem Muscle spasms of both lower extremities M62.838 Active 320065521 Problem OAB (overactive bladder) N32.81 Activ e 833409172 Problem Chronic pain disorder G89.4 Active 731452276 Problem Overweight (BMI 25.0-29.9) E66.3 Act ramana 165969139 Problem Anxiety F41.9 Active 02144148 Problem Angina at rest I20.8 Active 96298 8000 Problem Hyperlipemia E78.5 Active 7472658 4 Problem Chronic, continuous use of opioids F11.90 Active 993730199 Problem Type 2 diabetes mellitus wit h hyperglycemia, without long-term current use of insulin E11.65 Active 88263943 Problem Type 2 diabetes mellitus wit h diabetic polyneuropathy, without long-term current use of insulin E11.42 Active 52437 006 Problem Chronic tension-type headache, intractable G44.221 Active 732651657 ALLERGIES No Information ENCOUNTERS Encounter Location Date Diagnosis [address] [address] May, Adverse effect of drug, initial encounte r T50.905A and Acute conjunctivitis of both eyes, unspecified acute conjunctivitis type H10.[address] [address] Apr, [address] [address] Apr, [address] [address] Apr, Type 2 diabetes mellitus with hyperglyce wayne, without long-term current use of insulin E11.65 and Hyperlipemia E78.[address] [address] Apr, Fibromyalgia M79.7 ; High risk medicatio ns (not anticoagulants) long- term use Z79.899 ; Chronic pain disorder G89.4 ; Type 2 diabetes mellitus with diabetic polyneuropathy, without long-term current use of insulin E11.42 ; HTN (hypertension) I10 and Hyperlipemia E78.[address] [address] Apr, Degenerative disc disease, lumbar M51.36 [facility] [address] [facility] [place] [address] Apr, Drug screening, pre-employment Z02.[address] [address] March, [place] [address] [address] [facility] [id number] [address] [place] [address] March, HTN (hypertension) I10 ; Hyp erlipemia E78.5 ; Type 2 diabetes mellitus with hyperglycemia, without long-term current use of insulin E11.65 and Degenerative disc disease, lumbar M51.36 [facility] [address] [place] [place] [address] March, Degenerative disc disease, lumbar M51.36 [facility] [address] [id number] [address] [place] [address] March, [facility] [address] [id number] [address] [place] [address] Feb, [facility] [address] [id number] [address] [place] [address] Feb, Degenerative disc disease, l umbar M51.[address] [address] Feb, Degenerative disc disease, lumbar M51.[address] [address] Feb, Degenerative disc disease, lumbar M51.36 [facility] [address] [facility] [id number] [address] [place] [address] Feb, [address] [address] Feb, [address] [address] Feb, [address] [address] Jan, Screening mammogram, encounter for Z12.[address] [address] Jan, Urine frequency R35.0 ; Degenerative dis c disease, lumbar M51.36 and Encounter for Papanicolaou smear for cervical cancer screening Z12.[address] [address] Jan, Fibromyalgia M79.[address] [address] Jan, [address] [address] Jan, Degenerative disc disease, lumbar M51.36 and Fibromyalgia M79.[address] [address] Jan, [address] [address] Jan, [address] [address] Jan, Degenerative disc disease, lumbar M51.36 ; Fibromyalgia M79.7 and Type 2 diabetes mellitus with diabetic polyneuropathy, without long-term current use of insulin E11.[address] [address] Dec, [address] [address] Dec, [address] [address] Dec, Fibromyalgia M79.[address] [address] Dec, [facility] [address] [facility] [id number] [address] [place] [address] Dec, [address] [address] Dec, Degenerative disc disease, lumbar M51.36 ; HTN (hypertension) I10 ; Chronic pain disorder G89.4 ; Hyperlipemia E78.5 and Type 2 diabetes mellitus with diabetic polyneuropathy, without long-term current use of insulin E11.42 [place] [address] [facility] [id number] [address] [place] [address] Dec, Chronic pain disorder G89.4 [facility] [address] [facility] [id number] [address] [place] [address] Dec, Chronic pain disorder G89.4 [facility] [address] [facility] [id number] [address] [place] [address] Nov, Fibromyalgia M79.7 [facility] [address] [facility] [id number] [address] [place] [address] Nov, [facility] [address] [facility] [id number] [address] [place] [address] Nov, Fibromyalgia M79.7 ; Degener ative disc disease, lumbar M51.36 and Type 2 diabetes mellitus with hyperglycemia, without long-term current use of insulin E11.65 [facility] [address] [facility] [id number] [address] [place] [address] Oct, Degenerative disc disease, l umbar M51.36 [facility] [address] [facility] [id number] [address] [place] [address] Sep, Fibromyalgia M79.7 ; Degener ative disc disease, lumbar M51.36 and Restless leg syndrome G25.81 [facility] [address] [id number] [address] [place] [address] 07 Sep, 2018 Fibromyalgia M79.7 [facility] [address] [facility] [id number] [address] [place] [address] 05 Sep, 2018 [facility] [address] [facility] [id number] [address] [place] [address] Aug, [facility] [address] [id number] [address] [place] [address] Aug, Chronic pain disorder G89.4 [facility] [address] [facility] [id number] [address] [place] [address] 14 Jul, 2018 HTN (hypertension) I10 ; Typ e 2 diabetes mellitus with hyperglycemia, without long-term current use of insulin E11.65 ; Overweight (BMI 25.0-29.9) E66.3 ; Fibromyalgia M79.7 ; Restless leg syndrome G25.81 ; Chronic pain disorder G89.4 ; Hyperlipemia E78.5 and Angina at rest I20.8 [facility] [address] [facility] [id number] [address] [place] [address] 13 Jul, 2018 [facility] [address] [facility] [id number] [address] [place] [address] Jul, Restless leg syndrome G25.81 [facility] [address] [facility] [id number] [address] [place] [address] Jun, Fibromyalgia M79.7 [facility] [address] [id number] [address] [place] [address] Jun, Chronic pain disorder G89.4 [facility] [address] [facility] [id number] [address] [place] [address] 15 Jun, 2018 [facility] [address] [facility] [id number] [address] [place] [address] May, [facility] [address] [facility] [id number] [address] [place] [address] May, Vitamin D deficiency E55.9 [facility] [address] [facility] [id number] [address] [place] [address] May, Vitamin D deficiency E55.9 [facility] [place] [address] [id number] [place] [address] May, Chronic pain disorder G89.4 [place] [address] [address] [facility] [id number] [address] [place] [address] May, Chronic pain disorder G89.4 [place] [address] [address] [facility] [id number] [address] [place] [address] Apr, Chronic pain disorder G89.4 [place] [address] [address] [facility] [id number] [address] [place] [address] Apr, Type 2 diabetes mellitus wit h diabetic polyneuropathy, without long-term current use of insulin E11.42 ; HTN (hypertension) I10 ; Hyperlipemia E78.5 ; Fibromyalgia M79.7 ; Degenerative disc disease, lumbar M51.36 ; Chronic pain disorder G89.4 ; Chronic, continuous use of opioids F11.90 ; Vitamin D deficiency E55.9 ; Anxiety F41.9 ; Chronic tension-type headache, intractable G44.221 and Overweight (BMI 25.0-29.9) E66.3 [place] [address] [address] [facility] [id number] [address] [place] [address] March, Chronic pain disorder G89.4 [facility] [address] [facility] [id number] [address] [place] [address] March, Type 2 diabetes mellitus wit h diabetic polyneuropathy, without long-term current use of insulin E11.42 [place] [address] [facility] [id number] [address] [place] [address] Feb, Chronic pain disorder G89.4 [place] [address] [facility] [id number] [address] [place] [address] Jan, [place] [address] [address] [place] [id number] [address] [place] [address] Jan, Pharyngitis, unspecified vashti ology J02.9 ; Fibromyalgia M79.7 and Chronic pain disorder G89.4 [place] [address] [place] [id number] [address] [place] [address] Jan, [place] [address] [address] Jan, [place] [address] [address] Jan, [place] [address] [address] Jan, Type 2 diabetes mellitus wit h diabetic polyneuropathy, without long-term current use of insulin E11.42 ; Type 2 diabetes mellitus with hyperglycemia, without long-term current use of insulin E11.65 ; Degenerative disc disease, lumbar M51.36 ; Fibromyalgia M79.7 ; Restless leg syndrome G25.81 ; HTN (hypertension) I10 ; Hyperlipemia E78.5 ; Anxiety F41.9 ; Migraines G43.909 and High risk medication use Z79.899 [place] [address] [address] Dec, Chronic pain disorder G89.4 [place] [address] [address] Nov, Chronic pain disorder G89.4 [place] [address] [place] [id number] [address] [place] [address] Nov, [place] [address] [address] Nov, Type 2 diabetes mellitus wit h hyperglycemia, without long-term current use of insulin E11.65 ; HTN (hypertension) I10 ; Hyperlipemia E78.5 ; Restless leg syndrome G25.81 ; Fibromyalgia M79.7 ; Chronic tension-type headache, intractable G44.221 ; Migraines G43.909 ; Chronic pain disorder G89.4 and Overweight (BMI 25.0-29.9) E66.3 [facility] [address] [place] [id number] [place] [address] Nov, [facility] [address] [place] [id number] [place] [address] Oct, Degenerative disc disease, l umbar M51.36 [place] [address] [place] [id number] [place] [address] Sep, Degenerative disc disease, l umbar M51.36 [place] [address] [place] [id number] [place] [address] Sep, [place] [address] [place] [id number] [place] [address] Aug, Degenerative disc disease, l umbar M51.36 [place] [address] [address] Aug, Fall from height of greater than 3 feet W19.XXXA ; Hematoma of left hip, subsequent encounter S70.02XD ; Fibromyalgia M79.7 ; Muscle spasms of both lower extremities M62.838 ; Anxiety F41.9 ; Degenerative disc disease, lumbar M51.36 ; Chronic pain disorder G89.4 and Chronic, continuous use of opioids F11.90 [place] [address] [address] Jul, [place] [address] [place] [id number] [place] [address] Jul, Degenerative disc disease, l umbar M51.36 [place] [address] [place] [id number] [place] [address] Jun, Degenerative disc disease, l umbar M51.36 [place] [address] [place] [id number] [address] [place] [address] May, Degenerative disc disease, l umbar M51.36 [place] [address] [place] [id number] [place] [address], [place] [address] May, [facility] [address] [id number] [address] [place] [address] Apr, Degenerative disc disease, l umbar M51.36 [facility] [address] [id number] [address] [place] [address] Apr, Degenerative disc disease, l umbar M51.36 [facility] [address] [id number] [address] [place] [address] March, Degenerative disc disease, l umbar M51.36 and Fall (on) (from) other stairs and steps, initial encounter W10.8XXA [facility] [address] [id number] [address] [place] [address] March, [facility] [address] [id number] [address] [place] [address] March, [facility] [address] [id number] [address] [place] [address] March, [facility] [address] [id number] [address] [place] [address] March, [facility] [address] [id number] [address] [place] [address] Feb, [facility] [address] [id number] [address] [place] [address] Jan, Fibromyalgia M79.7 [facility] [address] [id number] [address] [place] [address] Jan, [facility] [address] [id number] [address] [place] [address] Dec, Degenerative disc disease, l umbar M51.36 [facility] [address] [id number] [address] [place] [address] Dec, [facility] [address] [id number] [address] [place] [address] Nov, Degenerative disc disease, l umbar M51.36 ; Fibromyalgia M79.7 ; Restless leg syndrome G25.81 ; HTN (hypertension) I10 ; Hyperlipemia E78.5 ; Chronic tension-type headache, intractable G44.221 and OAB (overactive bladder) N32.81 [facility] [address] [facility] [id number] [address] [place] [address] Nov, [facility] [address] [facility] [id number] [address] [place] [address] Oct, [facility] [address] [facility] [id number] [address] [place] [address] Oct, [place] [address] [id number] [place] [id number] Oct, [facility] [address] [facility] [id number] [address] [place] [address] Sep, [facility] [address] [facility] [id number] [address] [place] [address] Aug, [facility] [address] [facility] [id number] [address] [place] [address] Aug, [facility] [address] [facility] [id number] [address] [place] [address] Aug, Degenerative disc disease, l umbar M51.36 [facility] [address] [facility] [id number] [address] [place] [address] Aug, Degenerative disc disease, l umbar M51.36 ; Fibromyalgia M79.7 ; Migraines G43.909 ; Hyperlipemia E78.5 ; Muscle spasms of both lower extremities M62.838 ; Chronic tension-type headache, intractable G44.221 ; HTN (hypertension) I10 and Restless leg syndrome G25.81 [facility] [address] [facility] [id number] [address] [place] [address] Jul, [facility] [address] [facility] [id number] [address] [place] [address] Jul, [facility] [address] [id number] [address] [place] [address] Jul, [facility] [address] [id number] [address] [place] [address] Jun, Chronic tension-type headach e, intractable G44.221 ; Muscle spasms of both lower extremities M62.838 ; Fibromyalgia M79.7 ; Degenerative disc disease, lumbar M51.36 ; Restless leg syndrome G25.81 ; Migraines G43.909 ; Hyperlipemia E78.5 and Anxiety F41.9 [facility] [address] [id number] [address] [place] [address] Jun, [facility] [address] [id number] [address] [place] [address] Jun, [facility] [address] [id number] [address] [place] [address] Jun, [facility] [address] [id number] [address] [place] [address] Jun, [facility] [address] [id number] [address] [place] [address] May, Sebaceous cyst L72.3 [facility] [address] [id number] [address] [place] [address] May, Low back pain M54.5 [facility] [address] [id number] [address] [place] [address] Apr, [facility] [address] [id number] [address] [place] [address] Apr, Fibromyalgia M79.7 [facility] [address] [id number] [address] [place] [address] Apr, Degenerative disc disease, l umbar M51.36 ; Fibromyalgia M79.7 ; Migraines G43.909 ; Hyperlipemia E78.5 ; Restless leg syndrome G25.81 ; Other intractable trigeminal autonomic cephalgia (TAC) G44.091 ; Secondary hypertension I15.9 and Anxiety F41.9 [facility] [address] [facility] [id number] [address] [place] [address] March, 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 and HTN (hypertension) I10 [facility] [address] [facility] [id number] [address] [place] [address] March, Fibromyalgia M79.7 [facility] [address] [facility] [id number] [address] [place] [address] Feb, [facility] [address] [facility] [id number] [address] [place] [address] Feb, [facility] [address] [place] [id number] [address] [place] [address] Feb, [facility] [address] [place] [id number] [address] [place] [address] Feb, Hyperlipemia E78.5 [facility] [address] [facility] [id number] [address] [place] [address] Feb, Migraines G43.909 ; Fibromya lgia M79.7 ; Degenerative disc disease, lumbar M51.36 ; Restless leg syndrome G25.81 ; HTN (hypertension) I10 and Tobacco abuse counseling Z71.6 [facility] [address] [facility] [id number] [address] [place] [address] Feb, [facility] [address] [facility] [id number] [address] [place] [address] Jan, [facility] [address] [facility] [id number] [address] [place] [address] Jan, [facility] [address] [facility] [id number] [address] [place] [address] Dec, [facility] [address] [place] [id number] [address] [place] [address] Dec, Degenerative disc disease, l umbar M51.36 ; Restless leg syndrome G25.81 ; Migraines G43.909 ; HTN (hypertension) I10 ; Fibromyalgia M79.7 and Other long-term (current) drug therapy Z79.899 [facility] [address] [id number] [address] [place] [address] Dec, [facility] [address] [id number] [address] [place] [address] Nov, [facility] [address] [id number] [address] [place] [address] Nov, [facility] [address] [id number] [address] [place] [address] Oct, [facility] [address] [facility] [id number] [address] [place] [address] Oct, [facility] [address] [facility] [id number] [address] [place] [address] Oct, [facility] [address] [facility] [id number] [address] [place] [address] Sep, [facility] [address] [facility] [id number] [address] [place] [address] Sep, Routine gynecological examin ation V72.31 ; Degenerative disc disease, lumbar M51.36 ; Fibromyalgia M79.7 ; Restless leg syndrome G25.81 ; Migraines G43.909 and Well woman exam Z01.419 [facility] [address] [id number] [address] [place] [id number] Sep, [facility] [address] [id number] [address] [place] [id number] Aug, [facility] [address] [facility] [id number] [address] [place] [id number] Aug, Migraines G43.909 ; Degenera tive disc disease, lumbar M51.36 ; Fibromyalgia M79.7 ; Restless leg syndrome G25.81 and HTN (hypertension) I10 [facility] [address] [facility] [id number] [address] [place] [id number] Aug, [facility] [address] [id number] [address] [place] [id number] Aug, [facility] [address] [id number] [address] [place] [id number] Jul, [facility] [address] [facility] [id number] [address] [place] [id number] Jul, [facility] [address] [facility] [id number] [address] [place] [id number] Jun, Fibromyalgia 729.1 ; Lumbago 724.2 ; Restless leg syndrome 333.94 ; Migraines 346.90 and Elevated blood pressure (not hypertension) 796.2 [facility] [address] [facility] [id number] [address] [place] [id number] May, Fibromyalgia 729.1 ; Nontoxi c uninodular goiter 241.0 ; Lumbago 724.2 ; Restless leg syndrome 333.94 and Migraines 346.90 [facility] [address] [facility] [id number] [address] [place] [id number] Feb, [facility] [address] [facility] [id number] [address] [place] [id number] Feb, [facility] [address] [facility] [id number] [address] [place] [id number] Jan, [facility] [address] [id number] [address] [place] [id number] Jan, [facility] [address] [id number] [address] [place] [id number] Jan, [facility] [address] [id number] [address] [place] [id number] Jan, [facility] [address] [facility] [id number] [address] [place] [id number] Jan, [facility] [address] [facility] [id number] [address] [place] [id number] Jan, [facility] [address] [id number] [address] [place] [address], [place] [address] Jan, [facility] [address] [id number] [address] [place] [address], [place] [address] Jan, [facility] [address] [id number] [address] [place] [address], [place] [address] Dec, 2014 [facility] [address] [id number] [address] [place] [address], [place] [address] Dec, 2014 [facility] [address] [id number] [address] [place] [address], [place] [address] Dec, 2014 [facility] [address] [id number] [address] [place] [address], [place] [address] Dec, 2014 [facility] [address] [id number] [address] [place] [address], [place] [address] Dec, 2014 [facility] [address] [id number] [address] [place] [address], [place] [address] Dec, 2014 [facility] [address] [id number] [address] [place] [address], [place] [address] Dec, 2014 [facility] [address] [id number] [address] [place] [address], [place] [address] Dec, 2014 [facility] [address] [id number] [address] [place] [address], [place] [address] Dec, 2014 [facility] [address] [id number] [address] [place] [address], [place] [address] Dec, 2014 [facility] [address] [id number] [address] [place] [address], [place] [address] Dec, 2014 [facility] [address] [id number] [address] [place] [address], [place] [address] Nov, [facility] [address] [id number] [address] [place] [address], [place] [address] Nov, IMMUNIZATIONS No Known Immunizations SOCIAL HISTORY [...]
--- OUTSIDE RECORDS SUMMARY | 2020-02-04 14:56 | XMS REPORT ---
Author Author Caitie Suggs Doctor Organization [facility] Address Unknown Phone Unavailable Care Team Providers Care Senior Economist Name Role Phone Migration, Doctor Unavailable Unavailable PROBLEMS Type Condition ICD9-CM Code UNJ19-ER Code Onset Dates Condition S tatus SNOMED Code Problem Restless leg syndrome G25.81 Active 97664261 Problem Vitamin D deficiency E55.9 Active 91184339 Problem Fibromyalgia M79.7 Active 6359923 7 Problem Degenerative disc disease, lumbar M51.36 Active 07778838 Problem Migraines G43.909 Active 54989095 Problem HTN (hypertension) I10 Active 3 4617202 Problem Muscle spasms of both lower extremities M62.838 Active 466991630 Problem OAB (overactive bladder) N32.81 Activ e 306964520 Problem Chronic pain disorder G89.4 Active 615121783 Problem Overweight (BMI 25.0-29.9) E66.3 Act ramana 288757443 Problem Anxiety F41.9 Active 96165657 Problem Angina at rest I20.8 Active 24250 8000 Problem Hyperlipemia E78.5 Active 2701491 4 Problem Chronic, continuous use of opioids F11.90 Active 163392153 Problem Type 2 diabetes mellitus wit h hyperglycemia, without long-term current use of insulin E11.65 Active 25987516 Problem Type 2 diabetes mellitus wit h diabetic polyneuropathy, without long-term current use of insulin E11.42 Active 50288 006 Problem Chronic tension-type headache, intractable G44.221 Active 491664612 ALLERGIES No Information ENCOUNTERS Encounter Location Date Diagnosis [facility] [address] [facility] [id number] [address] [place] [address] Feb, [address] [address] Feb, [address] [address] Feb, [address] [address] Jan, Screening mammogram, encounter for Z12.[address] [address] Jan, Urine frequency R35.0 ; Degenerative dis c disease, lumbar M51.36 and Encounter for Papanicolaou smear for cervical cancer screening Z12.[address] [address] Jan, Fibromyalgia M79.[address] [address] Jan, [address] [address] Jan, Degenerative disc disease, lumbar M51.36 and Fibromyalgia M79.[address] [address] Jan, [address] [address] Jan, [address] [address] Jan, Degenerative disc disease, lumbar M51.36 ; Fibromyalgia M79.7 and Type 2 diabetes mellitus with diabetic polyneuropathy, without long-term current use of insulin E11.[address] [address] Dec, [address] [address] Dec, [address] [address] Dec, Fibromyalgia M79.[address] [address] Dec, [facility] [address] [facility] [id number] [address] [place] [address] Dec, [address] [address] Dec, Degenerative disc disease, lumbar M51.36 ; HTN (hypertension) I10 ; Chronic pain disorder G89.4 ; Hyperlipemia E78.5 and Type 2 diabetes mellitus with diabetic polyneuropathy, without long-term current use of insulin E11.42 [facility] [address] [facility] [id number] [address] [place] [address] Dec, Chronic pain disorder G89.4 [facility] [address] [facility] [id number] [address] [place] [address] Dec, Chronic pain disorder G89.4 [facility] [address] [place] [id number] [address] [place] [address] Nov, Fibromyalgia M79.7 [facility] [address] [facility] [id number] [address] [place] [address] Nov, [place] [address] [facility] [id number] [address] [place] [address] Nov, Fibromyalgia M79.7 ; Degener ative disc disease, lumbar M51.36 and Type 2 diabetes mellitus with hyperglycemia, without long-term current use of insulin E11.65 [place] [address] [facility] [id number] [address] [place] [id number] Oct, Degenerative disc disease, l umbar M51.36 [place] [address] [place] [id number] [address] [place] [address] Sep, Fibromyalgia M79.7 ; Degener ative disc disease, lumbar M51.36 and Restless leg syndrome G25.81 [place] [address] [place] [id number] [address] [place] [address] Sep, Fibromyalgia M79.7 [facility] [address] [facility] [id number] [address] [place] [address] Sep, [place] [address] [place] [id number] [address] [place] [phone] Aug, [facility] [address] [place] [id number] [address] [place] [phone] Aug, Chronic pain disorder G89.4 [facility] [address] [place] [id number] [address] [place] [id number] 14 Jul, 2018 HTN (hypertension) I10 ; Typ e 2 diabetes mellitus with hyperglycemia, without long-term current use of insulin E11.65 ; Overweight (BMI 25.0-29.9) E66.3 ; Fibromyalgia M79.7 ; Restless leg syndrome G25.81 ; Chronic pain disorder G89.4 ; Hyperlipemia E78.5 and Angina at rest I20.8 [facility] [address] [id number] [address] [place] [phone] 13 Jul, 2018 [facility] [address] [id number] [address] [place] [phone] 11 Jul, 2018 Restless leg syndrome G25.81 [facility] [address] [facility] [id number] [address] [place] [address] Jun, Fibromyalgia M79.7 [facility] [address] [facility] [id number] [address] [place] [address] Jun, Chronic pain disorder G89.4 [facility] [address] [facility] [id number] [address] [place] [phone] Jun, [facility] [address] [id number] [address] [place] [address] May, [facility] [address] [facility] [id number] [address] [place] [address] May, Vitamin D deficiency E55.9 [facility] [address] [id number] [address] [place] [address] May, Vitamin D deficiency E55.[id number] [place] [address] May, Chronic pain disorder G89.4 [facility] [address] [facility] [id number] [address] [place] [address] May, Chronic pain disorder G89.4 [facility] [address] [id number] [address] [place] [address] Apr, Chronic pain disorder G89.4 [facility] [address] [place] [id number] [address] [place] [phone] 15 Apr, 2018 Type 2 diabetes mellitus wit h diabetic polyneuropathy, without long-term current use of insulin E11.42 ; HTN (hypertension) I10 ; Hyperlipemia E78.5 ; Fibromyalgia M79.7 ; Degenerative disc disease, lumbar M51.36 ; Chronic pain disorder G89.4 ; Chronic, continuous use of opioids F11.90 ; Vitamin D deficiency E55.9 ; Anxiety F41.9 ; Chronic tension-type headache, intractable G44.221 and Overweight (BMI 25.0-29.9) E66.3 [place] [address] [address] March, Chronic pain disorder G89.4 [place] [address] [address] March, Type 2 diabetes mellitus wit h diabetic polyneuropathy, without long-term current use of insulin E11.42 [place] [address] [address] Feb, Chronic pain disorder G89.4 [place] [address] [place] [id number] [address] [place] [address] Jan, [place] [address] [address] Jan, Pharyngitis, unspecified vashti ology J02.9 ; Fibromyalgia M79.7 and Chronic pain disorder G89.4 [place] [address] [place] [id number] [address] [place] [phone] Jan, [place] [address] [place] [id number] [address] [place] [phone] Jan, [place] [address] [address] Jan, [place] [address] [address] Jan, Type 2 diabetes mellitus wit h diabetic polyneuropathy, without long-term current use of insulin E11.42 ; Type 2 diabetes mellitus with hyperglycemia, without long-term current use of insulin E11.65 ; Degenerative disc disease, lumbar M51.36 ; Fibromyalgia M79.7 ; Restless leg syndrome G25.81 ; HTN (hypertension) I10 ; Hyperlipemia E78.5 ; Anxiety F41.9 ; Migraines G43.909 and High risk medication use Z79.899 [place] [address] [address] Dec, Chronic pain disorder G89.4 [place] [address] [address] Nov, Chronic pain disorder G89.4 [place] [address] [address] Nov, [address] [address] Nov, Type 2 diabetes mellitus wit h hyperglycemia, without long-term current use of insulin E11.65 ; HTN (hypertension) I10 ; Hyperlipemia E78.5 ; Restless leg syndrome G25.81 ; Fibromyalgia M79.7 ; Chronic tension-type headache, intractable G44.221 ; Migraines G43.909 ; Chronic pain disorder G89.4 and Overweight (BMI 25.0-29.9) E66.[address] [address] Nov, [place] [address] [address] Oct, Degenerative disc disease, l umbar M51.[address] [address] Sep, Degenerative disc disease, l umbar M51.36 [place] [address] [place] [id number] [place] [address] Sep, [place] [address] [address] Aug, Degenerative disc disease, l umbar M51.36 [place] [address] [place] [id number] [address] [place] [address] Aug, Fall from height of greater than 3 feet W19.XXXA ; Hematoma of left hip, subsequent encounter S70.02XD ; Fibromyalgia M79.7 ; Muscle spasms of both lower extremities M62.838 ; Anxiety F41.9 ; Degenerative disc disease, lumbar M51.36 ; Chronic pain disorder G89.4 and Chronic, continuous use of opioids F11.90 [place] [address] [place] [id number] [address] [place] [address] Jul, [place] [address] [address] Jul, Degenerative disc disease, l umbar M51.36 [place] [address] [place] [id number] [address] [place] [address] Jun, Degenerative disc disease, l umbar M51.36 [place] [address] [place] [id number] [address] [place] [address] May, Degenerative disc disease, l umbar M51.36 [place] [address] [place] [id number] [address] [place] [address] May, [place] [address] [place] [id number] [address] [place] [address] Apr, Degenerative disc disease, l umbar M51.36 [place] [address] [place] [id number] [address] [place] [address] Apr, Degenerative disc disease, l umbar M51.36 [place] [address] [place] [id number] [address] [place] [address] March, Degenerative disc disease, l umbar M51.36 and Fall (on) (from) other stairs and steps, initial encounter W10.8XXA [place] [address] [place] [id number] [address] [place] [phone] March, [facility] [address] [facility] [id number] [address] [place] [phone] March, [facility] [address] [facility] [id number] [address] [place] [address] March, [facility] [address] [facility] [id number] [address] [place] [address] March, [facility] [address] [facility] [id number] [address] [place] [address] Feb, [facility] [address] [facility] [id number] [address] [place] [address] Jan, Fibromyalgia M79.7 [facility] [address] [facility] [id number] [address] [place] [address] Jan, [facility] [address] [facility] [id number] [address] [place] [address] Dec, Degenerative disc disease, l umbar M51.36 [facility] [address] [facility] [id number] [address] [place] [address] Dec, [facility] [address] [facility] [id number] [address] [place] [phone] Nov, Degenerative disc disease, l umbar M51.36 ; Fibromyalgia M79.7 ; Restless leg syndrome G25.81 ; HTN (hypertension) I10 ; Hyperlipemia E78.5 ; Chronic tension-type headache, intractable G44.221 and OAB (overactive bladder) N32.81 [facility] [address] [facility] [id number] [address] [place] [phone] Nov, [facility] [address] [facility] [id number] [address] [place] [address] Oct, [facility] [address] [facility] [id number] [address] [place] [phone] Oct, [place] [address] [facility] [id number] [place] [id number] Oct, [facility] [address] [facility] [id number] [address] [place] [phone] Sep, [facility] [address] [id number] [address] [place] [address] Aug, [facility] [address] [facility] [id number] [address] [place] [phone] Aug, [facility] [address] [id number] [address] [place] [address] Aug, Degenerative disc disease, l umbar M51.36 [facility] [address] [id number] [address] [place] [address] Aug, Degenerative disc disease, l umbar M51.36 ; Fibromyalgia M79.7 ; Migraines G43.909 ; Hyperlipemia E78.5 ; Muscle spasms of both lower extremities M62.838 ; Chronic tension-type headache, intractable G44.221 ; HTN (hypertension) I10 and Restless leg syndrome G25.81 [facility] [address] [facility] [id number] [address] [place] [address] Jul, [facility] [address] [facility] [id number] [address] [place] [phone] Jul, [facility] [address] [facility] [id number] [address] [place] [phone] Jul, [facility] [address] [facility] [id number] [address] [place] [address] Jun, Chronic tension-type headach e, intractable G44.221 ; Muscle spasms of both lower extremities M62.838 ; Fibromyalgia M79.7 ; Degenerative disc disease, lumbar M51.36 ; Restless leg syndrome G25.81 ; Migraines G43.909 ; Hyperlipemia E78.5 and Anxiety F41.9 [facility] [address] [facility] [id number] [address] [place] [address] Jun, [facility] [address] [facility] [id number] [address] [place] [id number] Jun, [facility] [address] [id number] [address] [place] [phone] Jun, [facility] [address] [facility] [id number] [address] [place] [address] Jun, [facility] [address] [facility] [id number] [address] [place] [address] May, Sebaceous cyst L72.3 [facility] [address] [facility] [id number] [address] [place] [address] May, Low back pain M54.5 [facility] [address] [facility] [id number] [address] [place] [phone] Apr, [facility] [address] [place] [id number] [address] [place] [phone] Apr, Fibromyalgia M79.7 [facility] [address] [place] [id number] [address] [place] [address] Apr, Degenerative disc disease, l umbar M51.36 ; Fibromyalgia M79.7 ; Migraines G43.909 ; Hyperlipemia E78.5 ; Restless leg syndrome G25.81 ; Other intractable trigeminal autonomic cephalgia (TAC) G44.091 ; Secondary hypertension I15.9 and Anxiety F41.9 [facility] [address] [place] [id number] [address] [place] [phone] March, Other intermediate designer (current) dr amie potter Z79.899 and HTN (hypertension) I10 [facility] [address] [facility] [id number] [address] [place] [address] March, Fibromyalgia M79.7 [facility] [address] [facility] [id number] [address] [place] [phone] Feb, [facility] [address] [facility] [id number] [address] [place] [phone] Feb, [facility] [address] [facility] [id number] [address] [place] [phone] Feb, [facility] [address] [facility] [id number] [address] [place] [address] Feb, Hyperlipemia E78.5 [facility] [address] [facility] [id number] [address] [place] [address] Feb, Migraines G43.909 ; Fibromya lgia M79.7 ; Degenerative disc disease, lumbar M51.36 ; Restless leg syndrome G25.81 ; HTN (hypertension) I10 and Tobacco abuse counseling Z71.6 [facility] [address] [facility] [id number] [address] [place] [phone] Feb, [facility] [address] [facility] [id number] [address] [place] [phone] Jan, [facility] [address] [place] [id number] [address] [place] [address] Jan, [facility] [address] [place] [id number] [address] [place] [address] Dec, [facility] [address] [place] [id number] [address] [place] [address] Dec, Degenerative disc disease, l umbar M51.36 ; Restless leg syndrome G25.81 ; Migraines G43.909 ; HTN (hypertension) I10 ; Fibromyalgia M79.7 and Other longterm (current) drug therapy Z79.899 [facility] [address] [facility] [id number] [address] [place] [address] Dec, [facility] [address] [place] [id number] [address] [place] [phone] Nov, [facility] [address] [place] [id number] [address] [place] [phone] Nov, [facility] [address] [place] [id number] [address] [place] [phone] Oct, [facility] [address] [place] [id number] [address] [place] [phone] Oct, [facility] [address] [facility] [id number] [address] [place] [id number] Oct, [facility] [address] [place] [id number] [address] [place] [phone] Sep, [facility] [address] [place] [id number] [place] [address] Sep, Routine gynecological examin ation V72.31 ; Degenerative disc disease, lumbar M51.36 ; Fibromyalgia M79.7 ; Restless leg syndrome G25.81 ; Migraines G43.909 and Well woman exam Z01.419 [facility] [address] [place] [id number] [place] [address] Sep, [facility] [address] [place] [id number] [place] [phone] Aug, [facility] [address] [place] [id number] [place] [address] Aug, Migraines G43.909 ; Degenera tive disc disease, lumbar M51.36 ; Fibromyalgia M79.7 ; Restless leg syndrome G25.81 and HTN (hypertension) I10 [facility] [address] [place] [id number] [address] [place] [phone] Aug, [facility] [address] [place] [id number] [address] [place] [phone] Aug, [facility] [address] [place] [id number] [address] [place] [phone] Jul, [facility] [address] [place] [id number] [address] [place] [address] Jul, [facility] [address] [place] [id number] [address] [place] [address] Jun, Fibromyalgia 729.1 ; Lumbago 724.2 ; Restless leg syndrome 333.94 ; Migraines 346.90 and Elevated blood pressure (not hypertension) 796.2 [facility] [address] [id number] [address] [place] [address] May, Fibromyalgia 729.1 ; Nontoxi c uninodular goiter 241.0 ; Lumbago 724.2 ; Restless leg syndrome 333.94 and Migraines 346.90 [facility] [address] [id number] [address] [place] [phone] Feb, [facility] [address] [id number] [address] [place] [phone] Feb, [facility] [address] [id number] [address] [place] [phone] Jan, [facility] [address] [id number] [address] [place] [phone] Jan, [facility] [address] [id number] [address] [place] [phone] Jan, [facility] [address] [id number] [address] [place] [phone] Jan, [facility] [address] [id number] [address] [place] [phone] Jan, [facility] [address] [facility] [id number] [address] [place] [phone] Jan, [facility] [address] [facility] [id number] [address] [place] [phone] Jan, [facility] [address] [id number] [address] [place] [phone] Jan, [facility] [address] [id number] [address] [place] [phone] Dec, [facility] [address] [facility] [id number] [address] [place] [phone] Dec, [facility] [address] [facility] [id number] [address] [place] [phone] Dec, [facility] [address] [facility] [id number] [address] [place] [phone] Dec, [facility] [address] [id number] [address] [place] [phone] Dec, [facility] [address] [id number] [address] [place] [phone] Dec, [facility] [address] [id number] [address] [place] [phone] Dec, 2014 [facility] [address] [id number] [address] [place] [phone] Dec, [facility] [address] [id number] [address] [place] [phone] Dec, [facility] [address] [facility] [id number] [address] [place] [phone] Dec, [facility] [address] [id number] [address] [place] [phone] Dec, [facility] [address] [id number] [address] [place] [phone] Nov, [facility] [address] [facility] [id number] [address] [place] [phone] Nov, IMMUNIZATIONS No Known Immunizations SOCIAL HISTORY Never Assessed REASON FOR VISIT EMR-[facility] [place]AN OF CARE VITAL SIGNS MEDICATIONS Unknown Medications RESULTS No Results PROCEDURES No Known procedures INSTRUCTIONS MEDICATIONS ADMINISTERED No Known Medications MEDICAL (GENERAL) HISTORY Type Description Date Medical History fibromyalgia Medical History degenerative disk disease Medical History degenerative arthritis Medical History Diabetes Type 2 Medical History htn Medical History cholesterol Medical History anxiety Surgical History parital hysterectomy 1987 Surgical History several lymph nodes removed- neck Surgical History tonsillectomy Surgical History tubal ligation Hospitalization History surgery Hospitalization History childbirth Hospitalization History [facility] for migraine
--- OUTSIDE RECORDS SUMMARY | 2020-02-04 14:56 | XMS REPORT ---
Author Author Caitie Garcia Organization [facility] Address [address] [place] [address] Care Team Providers Care Case Briefer Name Role Phone ED Garcia Unavailable PROBLEMS Type Condition ICD9-CM Code MFT03-HV Code Onset Dates Condition S tatus SNOMED Code Problem Restless leg syndrome G25.81 Active 65964986 Problem Vitamin D deficiency E55.9 Active 89734692 Problem Fibromyalgia M79.7 Active 7672673 7 Problem Degenerative disc disease, lumbar M51.36 Active 54290850 Problem Migraines G43.909 Active 27230054 Problem HTN (hypertension) I10 Active 3 0158866 Problem Muscle spasms of both lower extremities M62.838 Active 922960402 Problem OAB (overactive bladder) N32.81 Activ e 931411568 Problem Chronic pain disorder G89.4 Active 620978803 Problem Overweight (BMI 25.0-29.9) E66.3 Act ramana 049619543 Problem Anxiety F41.9 Active 67041335 Problem Angina at rest I20.8 Active 50155 8000 Problem Hyperlipemia E78.5 Active 9643023 4 Problem Chronic, continuous use of opioids F11.90 Active 194445822 Problem Type 2 diabetes mellitus wit h hyperglycemia, without long-term current use of insulin E11.65 Active 07053568 Problem Type 2 diabetes mellitus wit h diabetic polyneuropathy, without long-term current use of insulin E11.42 Active 80458 006 Problem Chronic tension-type headache, intractable G44.221 Active 380478493 ALLERGIES No Information ENCOUNTERS Encounter Location Date Diagnosis [address] [address] Apr, [address] [address] Apr, [address] [address] Apr, Type 2 diabetes mellitus with hyperglyce wayne, without long-term current use of insulin E11.65 and Hyperlipemia E78.[address] [address] Apr, Fibromyalgia M79.7 ; High risk medicatio ns (not anticoagulants) long- term use Z79.899 ; Chronic pain disorder G89.4 ; Type 2 diabetes mellitus with diabetic polyneuropathy, without long-term current use of insulin E11.42 ; HTN (hypertension) I10 and Hyperlipemia E78.[address] [address] 17 Apr, 2019 Degenerative disc disease, lumbar M51.36 [facility] [place] [address] [place] [address] Apr, Drug screening, pre-employment Z02.[address] [address] March, [place] [address] [facility] [id number] [address] [place] [address] March, HTN (hypertension) I10 ; Hyp erlipemia E78.5 ; Type 2 diabetes mellitus with hyperglycemia, without long-term current use of insulin E11.65 and Degenerative disc disease, lumbar M51.36 [facility] [address] [place] [address] March, Degenerative disc disease, lumbar M51.36 [place] [address] [id number] [address] [place] [address] March, [facility] [address] [id number] [address] [place] [address] Feb, Degenerative disc disease, l umbar M51.36 [facility] [address] [facility] [id number] [address] [place] [address] Feb, [address] [address] Feb, Degenerative disc disease, lumbar M51.[address] [address] Feb, Degenerative disc disease, lumbar M51.36 [facility] [address] [facility] [id number] [address] [place] [address] Feb, [address] [address] Feb, [address] [address] Feb, [address] [address] Jan, Screening mammogram, encounter for Z12.[address] [address] Jan, Urine frequency R35.0 ; Degenerative dis c disease, lumbar M51.36 and Encounter for Papanicolaou smear for cervical cancer screening Z12.[address] [address] Jan, Fibromyalgia M79.[address] [address] Jan, [address] [address] Jan, Degenerative disc disease, lumbar M51.36 and Fibromyalgia M79.[address] [address] Jan, [address] [address] Jan, [address] [address] Jan, Degenerative disc disease, lumbar M51.36 ; Fibromyalgia M79.7 and Type 2 diabetes mellitus with diabetic polyneuropathy, without long-term current use of insulin E11.[address] [address] Dec, [address] [address] Dec, [address] [address] Dec, Fibromyalgia M79.[address] [address] Dec, [facility] [address] [facility] [id number] [address] [place] [address] Dec, [address] [address] Dec, Degenerative disc disease, lumbar M51.36 ; HTN (hypertension) I10 ; Chronic pain disorder G89.4 ; Hyperlipemia E78.5 and Type 2 diabetes mellitus with diabetic polyneuropathy, without long-term current use of insulin E11.42 [facility] [address] [facility] [id number] [address] [place] [address] Dec, Chronic pain disorder G89.4 [facility] [address] [facility] [id number] [address] [place] [address] Dec, Chronic pain disorder G89.4 [place] [address] [facility] [id number] [address] [place] [address] Nov, Fibromyalgia M79.7 [facility] [address] [facility] [id number] [address] [place] [address] Nov, [facility] [address] [facility] [id number] [address] [place] [address] Nov, Fibromyalgia M79.7 ; Degener ative disc disease, lumbar M51.36 and Type 2 diabetes mellitus with hyperglycemia, without long-term current use of insulin E11.65 [facility] [address] [facility] [id number] [address] [place] [address] Oct, Degenerative disc disease, l umbar M51.36 [facility] [address] [facility] [id number] [address] [place] [address] Sep, Fibromyalgia M79.7 ; Degener ative disc disease, lumbar M51.36 and Restless leg syndrome G25.81 [facility] [address] [place] [id number] [address] [place] [address] Sep, Fibromyalgia M79.7 [facility] [address] [facility] [id number] [address] [place] [address] 05 Sep, 2018 [facility] [address] [facility] [id number] [address] [place] [address] Aug, [facility] [address] [facility] [id number] [address] [place] [address] 10 Aug, 2018 Chronic pain disorder G89.4 [facility] [address] [facility] [id number] [address] [place] [address] 14 Jul, 2018 HTN (hypertension) I10 ; Typ e 2 diabetes mellitus with hyperglycemia, without long-term current use of insulin E11.65 ; Overweight (BMI 25.0-29.9) E66.3 ; Fibromyalgia M79.7 ; Restless leg syndrome G25.81 ; Chronic pain disorder G89.4 ; Hyperlipemia E78.5 and Angina at rest I20.8 [place] [address] [facility] [id number] [address] [place] [address] 13 Jul, 2018 [facility] [address] [facility] [id number] [address] [place] [address] 11 Jul, 2018 Restless leg syndrome G25.81 [facility] [address] [facility] [id number] [address] [place] [address] Jun, Fibromyalgia M79.7 [facility] [address] [facility] [id number] [address] [place] [address] 16 Jun, 2018 Chronic pain disorder G89.4 [facility] [address] [facility] [id number] [address] [place] [address] Jun, [facility] [address] [facility] [id number] [address] [place] [address] May, [facility] [address] [facility] [id number] [address] [place] [address] May, Vitamin D deficiency E55.9 [facility] [address] [facility] [id number] [address] [place] [address] May, Vitamin D deficiency E55.9 [facility] [id number] [address] May, Chronic pain disorder G89.4 [place] [address] [place] [id number] [address] [place] [address] May, Chronic pain disorder G89.4 [place] [id number] [place] [address] Apr, Chronic pain disorder G89.4 [place] [address] [place] [id number] [address] [place] [address] Apr, Type 2 diabetes mellitus wit h diabetic polyneuropathy, without long-term current use of insulin E11.42 ; HTN (hypertension) I10 ; Hyperlipemia E78.5 ; Fibromyalgia M79.7 ; Degenerative disc disease, lumbar M51.36 ; Chronic pain disorder G89.4 ; Chronic, continuous use of opioids F11.90 ; Vitamin D deficiency E55.9 ; Anxiety F41.9 ; Chronic tension-type headache, intractable G44.221 and Overweight (BMI 25.0-29.9) E66.3 [place] [address] [facility] [id number] [address] [place] [address] March, Chronic pain disorder G89.4 [place] [address] [place] [id number] [address] [place] [address] March, Type 2 diabetes mellitus wit h diabetic polyneuropathy, without long-term current use of insulin E11.42 [place] [address] [facility] [id number] [address] [place] [address] Feb, Chronic pain disorder G89.4 [place] [address] [facility] [id number] [address] [place] [address] Jan, [place] [address] [place] [id number] [address] [place] [address] Jan, Pharyngitis, unspecified vashti ology J02.9 ; Fibromyalgia M79.7 and Chronic pain disorder G89.4 [place] [address] [place] [id number] [place] [address] Jan, [place] [address] [address] Jan, [place] [address] [place] [id number] [place] [address] Jan, [place] [address] [address] Jan, Type 2 diabetes mellitus wit h diabetic polyneuropathy, without long-term current use of insulin E11.42 ; Type 2 diabetes mellitus with hyperglycemia, without long-term current use of insulin E11.65 ; Degenerative disc disease, lumbar M51.36 ; Fibromyalgia M79.7 ; Restless leg syndrome G25.81 ; HTN (hypertension) I10 ; Hyperlipemia E78.5 ; Anxiety F41.9 ; Migraines G43.909 and High risk medication use Z79.899 [place] [address] [address] Dec, Chronic pain disorder G89.4 [place] [address] [address] Nov, Chronic pain disorder G89.4 [place] [address] [place] [id number] [address] [place] [address] Nov, [place] [address] [place] [id number] [address] [place] [address] Nov, Type 2 diabetes mellitus wit h hyperglycemia, without long-term current use of insulin E11.65 ; HTN (hypertension) I10 ; Hyperlipemia E78.5 ; Restless leg syndrome G25.81 ; Fibromyalgia M79.7 ; Chronic tension-type headache, intractable G44.221 ; Migraines G43.909 ; Chronic pain disorder G89.4 and Overweight (BMI 25.0-29.9) E66.3 [place] [address] [place] [id number] [address] [place] [address] Nov, [place] [address] [address] Oct, Degenerative disc disease, l umbar M51.36 [place] [address] [address] Sep, Degenerative disc disease, l umbar M51.36 [place] [address] [address] Sep, [place] [address] [address] Aug, Degenerative disc disease, l umbar M51.36 [place] [address] [address] Aug, Fall from height of greater than 3 feet W19.XXXA ; Hematoma of left hip, subsequent encounter S70.02XD ; Fibromyalgia M79.7 ; Muscle spasms of both lower extremities M62.838 ; Anxiety F41.9 ; Degenerative disc disease, lumbar M51.36 ; Chronic pain disorder G89.4 and Chronic, continuous use of opioids F11.90 [place] [address] [address] Jul, [place] [address] [address] Jul, Degenerative disc disease, l umbar M51.36 [place] [address] [address] Jun, Degenerative disc disease, l umbar M51.36 [place] [address] [place] [id number] [place] [address] May, Degenerative disc disease, l umbar M51.36 [place] [address] [place] [id number] [place] [address] May, [place] [address] [place] [id number] [address] [place] [address] Apr, Degenerative disc disease, l umbar M51.36 [facility] [address] [id number] [address] [place] [address] Apr, Degenerative disc disease, l umbar M51.36 [facility] [address] [facility] [id number] [address] [place] [address] March, Degenerative disc disease, l umbar M51.36 and Fall (on) (from) other stairs and steps, initial encounter W10.8XXA [facility] [address] [facility] [id number] [address] [place] [address] March, [facility] [address] [id number] [address] [place] [address] March, [facility] [address] [facility] [id number] [address] [place] [address] March, [facility] [address] [place] [id number] [address] [place] [address] March, [facility] [address] [facility] [id number] [address] [place] [address] Feb, [facility] [address] [facility] [id number] [address] [place] [address] Jan, Fibromyalgia M79.7 [facility] [address] [facility] [id number] [address] [place] [address] Jan, [facility] [address] [facility] [id number] [address] [place] [address] Dec, Degenerative disc disease, l umbar M51.36 [facility] [address] [facility] [id number] [address] [place] [address] Dec, [facility] [address] [facility] [id number] [address] [place] [address] Nov, Degenerative disc disease, l umbar M51.36 ; Fibromyalgia M79.7 ; Restless leg syndrome G25.81 ; HTN (hypertension) I10 ; Hyperlipemia E78.5 ; Chronic tension-type headache, intractable G44.221 and OAB (overactive bladder) N32.81 [facility] [address] [facility] [id number] [address] [place] [address] Nov, [facility] [address] [facility] [id number] [address] [place] [address] Oct, [facility] [address] [facility] [id number] [address] [place] [address] Oct, [id number] [place] [id number] Oct, [facility] [address] [facility] [id number] [address] [place] [address] Sep, [facility] [address] [facility] [id number] [address] [place] [address] Aug, [facility] [address] [facility] [id number] [address] [place] [address] Aug, [facility] [address] [facility] [id number] [address] [place] [address] Aug, Degenerative disc disease, l umbar M51.36 [facility] [address] [place] [id number] [address] [place] [address] Aug, Degenerative disc disease, l umbar M51.36 ; Fibromyalgia M79.7 ; Migraines G43.909 ; Hyperlipemia E78.5 ; Muscle spasms of both lower extremities M62.838 ; Chronic tension-type headache, intractable G44.221 ; HTN (hypertension) I10 and Restless leg syndrome G25.81 [facility] [address] [facility] [id number] [address] [place] [address] Jul, [facility] [address] [place] [id number] [address] [place] [address] Jul, [facility] [address] [facility] [id number] [address] [place] [address] Jul, [facility] [address] [facility] [id number] [address] [place] [address] Jun, Chronic tension-type headach e, intractable G44.221 ; Muscle spasms of both lower extremities M62.838 ; Fibromyalgia M79.7 ; Degenerative disc disease, lumbar M51.36 ; Restless leg syndrome G25.81 ; Migraines G43.909 ; Hyperlipemia E78.5 and Anxiety F41.9 [facility] [address] [id number] [address] [place] [address] Jun, [facility] [address] [id number] [address] [place] [address] Jun, [facility] [address] [id number] [address] [place] [address] Jun, [facility] [address] [id number] [address] [place] [address] Jun, [facility] [address] [id number] [address] [place] [address] May, Sebaceous cyst L72.3 [facility] [address] [id number] [address] [place] [address] May, Low back pain M54.5 [facility] [address] [id number] [address] [place] [address] Apr, [facility] [address] [id number] [address] [place] [address] Apr, Fibromyalgia M79.7 [facility] [address] [id number] [address] [place] [address] Apr, Degenerative disc disease, l umbar M51.36 ; Fibromyalgia M79.7 ; Migraines G43.909 ; Hyperlipemia E78.5 ; Restless leg syndrome G25.81 ; Other intractable trigeminal autonomic cephalgia (TAC) G44.091 ; Secondary hypertension I15.9 and Anxiety F41.9 [facility] [address] [id number] [address] [place] [address] March, Other correction (current) dr ug therapy Z79.899 and HTN (hypertension) I10 [facility] [address] [facility] [id number] [address] [place] [address] March, Fibromyalgia M79.7 [facility] [address] [facility] [id number] [address] [place] [address] Feb, [facility] [address] [facility] [id number] [address] [place] [address] Feb, [facility] [address] [facility] [id number] [address] [place] [address] Feb, [facility] [address] [facility] [id number] [address] [place] [address] Feb, Hyperlipemia E78.5 [facility] [address] [facility] [id number] [address] [place] [address] Feb, Migraines G43.909 ; Fibromya lgia M79.7 ; Degenerative disc disease, lumbar M51.36 ; Restless leg syndrome G25.81 ; HTN (hypertension) I10 and Tobacco abuse counseling Z71.6 [facility] [address] [facility] [id number] [address] [place] [address] Feb, [facility] [address] [place] [id number] [address] [place] [id number] Jan, [facility] [address] [facility] [id number] [address] [place] [address] Jan, [facility] [address] [place] [id number] [address] [place] [address] Dec, [facility] [address] [facility] [id number] [address] [place] [address] Dec, Degenerative disc disease, l umbar M51.36 ; Restless leg syndrome G25.81 ; Migraines G43.909 ; HTN (hypertension) I10 ; Fibromyalgia M79.7 and Other correction (current) drug therapy Z79.899 [facility] [address] [facility] [id number] [address] [place] [id number] Dec, [facility] [address] [id number] [address] [place] [address] Nov, [facility] [address] [facility] [id number] [address] [place] [address] Nov, [facility] [address] [facility] [id number] [address] [place] [address] Oct, [facility] [address] [facility] [id number] [address] [place] [address] Oct, [facility] [address] [id number] [address] [place] [address] Oct, [facility] [address] [facility] [id number] [address] [place] [address] Sep, [facility] [address] [place] [id number] [address] [place] [address] Sep, Routine gynecological examin ation V72.31 ; Degenerative disc disease, lumbar M51.36 ; Fibromyalgia M79.7 ; Restless leg syndrome G25.81 ; Migraines G43.909 and Well woman exam Z01.419 [facility] [address] [place] [id number] [address] [place] [address] Sep, [facility] [address] [place] [id number] [address] [place] [address] Aug, [facility] [address] [place] [id number] [address] [place] [address] Aug, Migraines G43.909 ; Degenera tive disc disease, lumbar M51.36 ; Fibromyalgia M79.7 ; Restless leg syndrome G25.81 and HTN (hypertension) I10 [facility] [address] [facility] [id number] [address] [place] [address] Aug, [facility] [address] [place] [id number] [address] [place] [id number] Aug, [facility] [address] [id number] [address] [place] [address] Jul, [facility] [address] [facility] [id number] [address] [place] [id number] Jul, [facility] [address] [facility] [id number] [address] [place] [id number] Jun, Fibromyalgia 729.1 ; Lumbago 724.2 ; Restless leg syndrome 333.94 ; Migraines 346.90 and Elevated blood pressure (not hypertension) 796.2 [facility] [address] [id number] [address] [place] [id number] May, Fibromyalgia 729.1 ; Nontoxi c uninodular goiter 241.0 ; Lumbago 724.2 ; Restless leg syndrome 333.94 and Migraines 346.90 [facility] [address] [id number] [address] [place] [phone] Feb, [facility] [address] [id number] [address] [place] [id number] Feb, [facility] [address] [id number] [address] [place] [id number] Jan, [facility] [address] [id number] [address] [place] [id number] Jan, [facility] [address] [id number] [address] [place] [id number] Jan, [facility] [address] [id number] [address] [place] [id number] Jan, [facility] [address] [id number] [address] [place] [id number] Jan, [facility] [address] [facility] [id number] [address] [place] [phone] Jan, [facility] [address] [facility] [id number] [address] [place] [id number] Jan, [facility] [address] [id number] [address] [place] [phone] Jan, [facility] [address] [id number] [address] [place] [id number] Dec, [facility] [address] [id number] [address] [place] [address] [id number] Dec, 2014 [facility] [address] [id number] [address] [place] [id number] Dec, 2014 [facility] [address] [id number] [address] [place] [phone] Dec, [facility] [address] [id number] [address] [place] [id number] Dec, [facility] [address] [id number] [address] [place] [id number] Dec, [facility] [address] [id number] [address] [place] [id number] Dec, [facility] [address] [id number] [address] [place] [phone] Dec, [facility] [address] [id number] [address] [place] [id number] Dec, [facility] [address] [id number] [address] [place] [phone] Dec, [facility] [address] [id number] [address] [place] [id number] Dec, [facility] [address] [id number] [address] [place] [phone] Nov, [facility] [address] [id number] [address] [place] [phone] Nov, IMMUNIZATIONS No Known Immunizations SOCIAL HISTORY Never Assessed REASON FOR VISIT PLAN OF CARE VITAL SIGNS Height 63 in 2015-01-04 Weight 157.8 lbs 2015-01-04 Temperature 98.9 degrees Fahrenheit 2015-01-04 Heart Rate 94 bpm 2015-01-04 Respiratory Rate 16 2015-01-04 Blood pressure systolic 142 mmHg 2015-01-04 Blood pressure diastolic 100 mmHg 2015-01-04 MEDICATIONS Unknown Medications RESULTS No Results PROCEDURES [...]
--- OUTSIDE RECORDS SUMMARY | 2020-02-04 14:56 | XMS REPORT ---
Author Author Caitie Garcia Organization [facility] Address [address] [place] [address] Care Team Providers Care Farm Service Consultant Name Role Phone ED Garcia Unavailable PROBLEMS Type Condition ICD9-CM Code TVS63-CM Code Onset Dates Condition S tatus SNOMED Code Problem Restless leg syndrome G25.81 Active 86531476 Problem Vitamin D deficiency E55.9 Active 56401571 Problem Fibromyalgia M79.7 Active 3850084 7 Problem Degenerative disc disease, lumbar M51.36 Active 63369945 Problem Migraines G43.909 Active 10151967 Problem HTN (hypertension) I10 Active 3 4254087 Problem Muscle spasms of both lower extremities M62.838 Active 367717690 Problem OAB (overactive bladder) N32.81 Activ e 323441119 Problem Chronic pain disorder G89.4 Active 765271998 Problem Overweight (BMI 25.0-29.9) E66.3 Act ramana 894872252 Problem Anxiety F41.9 Active 10472070 Problem Angina at rest I20.8 Active 84582 8000 Problem Hyperlipemia E78.5 Active 7393636 4 Problem Chronic, continuous use of opioids F11.90 Active 707525651 Problem Type 2 diabetes mellitus wit h hyperglycemia, without long-term current use of insulin E11.65 Active 83630468 Problem Type 2 diabetes mellitus wit h diabetic polyneuropathy, without long-term current use of insulin E11.42 Active 17482 006 Problem Chronic tension-type headache, intractable G44.221 Active 906921967 ALLERGIES No Information ENCOUNTERS Encounter Location Date Diagnosis [address] [address] Apr, [address] [address] Apr, [address] [address] Apr, Type 2 diabetes mellitus with hyperglyce wayne, without long-term current use of insulin E11.65 and Hyperlipemia E78.[address] [address] Apr, Fibromyalgia M79.7 ; High risk medicatio ns (not anticoagulants) long- term use Z79.899 ; Chronic pain disorder G89.4 ; Type 2 diabetes mellitus with diabetic polyneuropathy, without long-term current use of insulin E11.42 ; HTN (hypertension) I10 and Hyperlipemia E78.[address] [address] 17 Apr, 2019 Degenerative disc disease, lumbar M51.36 [facility] [place] [address] [place] [address] Apr, Drug screening, pre-employment Z02.[address] [address] March, [place] [id number] [facility] [id number] [address] [place] [address] March, HTN (hypertension) I10 ; Hyp erlipemia E78.5 ; Type 2 diabetes mellitus with hyperglycemia, without long-term current use of insulin E11.65 and Degenerative disc disease, lumbar M51.36 [facility] [address] [place] [address] March, Degenerative disc disease, lumbar M51.36 [facility] [address] [id number] [address] [place] [phone] March, [facility] [address] [id number] [address] [place] [phone] Feb, [facility] [address] [id number] [address] [place] [phone] Feb, Degenerative disc disease, l umbar M51.[address] [address] Feb, Degenerative disc disease, lumbar M51.[address] [address] Feb, Degenerative disc disease, lumbar M51.36 [facility] [address] [facility] [id number] [address] [place] [address] Feb, [address] [address] Feb, [address] [address] Feb, [address] [address] Jan, Screening mammogram, encounter for Z12.[address] [address] Jan, Urine frequency R35.0 ; Degenerative dis c disease, lumbar M51.36 and Encounter for Papanicolaou smear for cervical cancer screening Z12.[address] [address] Jan, Fibromyalgia M79.[address] [address] Jan, [address] [address] Jan, Degenerative disc disease, lumbar M51.36 and Fibromyalgia M79.[address] [address] Jan, [address] [address] Jan, [address] [address] Jan, Degenerative disc disease, lumbar M51.36 ; Fibromyalgia M79.7 and Type 2 diabetes mellitus with diabetic polyneuropathy, without long-term current use of insulin E11.[address] [address] Dec, [address] [address] Dec, [address] [address] Dec, Fibromyalgia M79.[address] [address] Dec, [facility] [address] [facility] [id number] [address] [place] [address] Dec, [address] [address] Dec, Degenerative disc disease, lumbar M51.36 ; HTN (hypertension) I10 ; Chronic pain disorder G89.4 ; Hyperlipemia E78.5 and Type 2 diabetes mellitus with diabetic polyneuropathy, without long-term current use of insulin E11.42 [facility] [address] [facility] [id number] [address] [place] [phone] Dec, Chronic pain disorder G89.4 [facility] [address] [facility] [id number] [address] [place] [id number] Dec, Chronic pain disorder G89.4 [place] [address] [address] [facility] [id number] [address] [place] [address] Nov, Fibromyalgia M79.7 [facility] [address] [facility] [id number] [address] [place] [address] Nov, [facility] [address] [facility] [id number] [address] [place] [address] Nov, Fibromyalgia M79.7 ; Degener ative disc disease, lumbar M51.36 and Type 2 diabetes mellitus with hyperglycemia, without long-term current use of insulin E11.65 [facility] [address] [facility] [id number] [address] [place] [address] Oct, Degenerative disc disease, l umbar M51.36 [facility] [address] [facility] [id number] [address] [place] [address] Sep, Fibromyalgia M79.7 ; Degener ative disc disease, lumbar M51.36 and Restless leg syndrome G25.81 [facility] [address] [place] [id number] [address] [place] [phone] Sep, Fibromyalgia M79.7 [facility] [address] [facility] [id number] [address] [place] [phone] 05 Sep, 2018 [facility] [address] [facility] [id number] [address] [place] [phone] Aug, [facility] [address] [facility] [id number] [address] [place] [id number] 10 Aug, 2018 Chronic pain disorder G89.4 [facility] [address] [facility] [id number] [address] [place] [id number] 14 Jul, 2018 HTN (hypertension) I10 ; Typ e 2 diabetes mellitus with hyperglycemia, without long-term current use of insulin E11.65 ; Overweight (BMI 25.0-29.9) E66.3 ; Fibromyalgia M79.7 ; Restless leg syndrome G25.81 ; Chronic pain disorder G89.4 ; Hyperlipemia E78.5 and Angina at rest I20.8 [place] [address] [facility] [id number] [address] [place] [phone] 13 Jul, 2018 [facility] [address] [facility] [id number] [address] [place] [phone] 11 Jul, 2018 Restless leg syndrome G25.81 [facility] [address] [facility] [id number] [address] [place] [phone] Jun, Fibromyalgia M79.7 [facility] [address] [facility] [id number] [address] [place] [id number] 16 Jun, 2018 Chronic pain disorder G89.4 [facility] [address] [facility] [id number] [address] [place] [phone] Jun, [facility] [address] [facility] [id number] [address] [place] [phone] May, [facility] [address] [facility] [id number] [address] [place] [phone] May, Vitamin D deficiency E55.9 [facility] [address] [facility] [id number] [address] [place] [phone] May, Vitamin D deficiency E55.9 [facility] [id number] [address] May, Chronic pain disorder G89.4 [place] [address] [address] [place] [id number] [address] [place] [phone] May, Chronic pain disorder G89.4 [place] [id number] [place] [address] Apr, Chronic pain disorder G89.4 [place] [address] [address] [place] [id number] [address] [place] [address] Apr, Type 2 diabetes mellitus wit h diabetic polyneuropathy, without long-term current use of insulin E11.42 ; HTN (hypertension) I10 ; Hyperlipemia E78.5 ; Fibromyalgia M79.7 ; Degenerative disc disease, lumbar M51.36 ; Chronic pain disorder G89.4 ; Chronic, continuous use of opioids F11.90 ; Vitamin D deficiency E55.9 ; Anxiety F41.9 ; Chronic tension-type headache, intractable G44.221 and Overweight (BMI 25.0-29.9) E66.3 [place] [address] [address] [facility] [id number] [address] [place] [phone] March, Chronic pain disorder G89.4 [place] [address] [address] [place] [id number] [address] [place] [phone] March, Type 2 diabetes mellitus wit h diabetic polyneuropathy, without long-term current use of insulin E11.42 [place] [address] [facility] [id number] [address] [place] [phone] Feb, Chronic pain disorder G89.4 [place] [address] [facility] [id number] [address] [place] [address] Jan, [place] [address] [place] [id number] [address] [place] [phone] Jan, Pharyngitis, unspecified vashti ology J02.9 ; Fibromyalgia M79.7 and Chronic pain disorder G89.4 [place] [address] [place] [id number] [address] [place] [address] Jan, [place] [address] [address] Jan, [place] [address] [place] [id number] [place] [address] Jan, [place] [address] [address] Jan, Type 2 diabetes mellitus wit h diabetic polyneuropathy, without long-term current use of insulin E11.42 ; Type 2 diabetes mellitus with hyperglycemia, without long-term current use of insulin E11.65 ; Degenerative disc disease, lumbar M51.36 ; Fibromyalgia M79.7 ; Restless leg syndrome G25.81 ; HTN (hypertension) I10 ; Hyperlipemia E78.5 ; Anxiety F41.9 ; Migraines G43.909 and High risk medication use Z79.899 [place] [address] [address] Dec, Chronic pain disorder G89.4 [place] [address] [address] Nov, Chronic pain disorder G89.4 [place] [address] [place] [id number] [address] [place] [address] Nov, [place] [address] [place] [id number] [address] [place] [phone] Nov, Type 2 diabetes mellitus wit h hyperglycemia, without long-term current use of insulin E11.65 ; HTN (hypertension) I10 ; Hyperlipemia E78.5 ; Restless leg syndrome G25.81 ; Fibromyalgia M79.7 ; Chronic tension-type headache, intractable G44.221 ; Migraines G43.909 ; Chronic pain disorder G89.4 and Overweight (BMI 25.0-29.9) E66.3 [place] [address] [place] [id number] [address] [place] [address] Nov, [place] [address] [address] Oct, Degenerative disc disease, l umbar M51.36 [place] [address] [address] Sep, Degenerative disc disease, l umbar M51.36 [place] [address] [address] Sep, [place] [address] [address] Aug, Degenerative disc disease, l umbar M51.36 [place] [address] [address] Aug, Fall from height of greater than 3 feet W19.XXXA ; Hematoma of left hip, subsequent encounter S70.02XD ; Fibromyalgia M79.7 ; Muscle spasms of both lower extremities M62.838 ; Anxiety F41.9 ; Degenerative disc disease, lumbar M51.36 ; Chronic pain disorder G89.4 and Chronic, continuous use of opioids F11.90 [place] [address] [address] Jul, [place] [address] [address] Jul, Degenerative disc disease, l umbar M51.36 [place] [address] [address] Jun, Degenerative disc disease, l umbar M51.36 [place] [address] [place] [id number] [address] [place] [address] May, Degenerative disc disease, l umbar M51.36 [place] [address] [place] [id number] [address] [place] [address] May, [place] [address] [place] [id number] [address] [place] [address] Apr, Degenerative disc disease, l umbar M51.36 [facility] [address] [id number] [address] [place] [address] Apr, Degenerative disc disease, l umbar M51.36 [facility] [address] [facility] [id number] [address] [place] [address] March, Degenerative disc disease, l umbar M51.36 and Fall (on) (from) other stairs and steps, initial encounter W10.8XXA [facility] [address] [facility] [id number] [address] [place] [phone] March, [facility] [address] [id number] [address] [place] [phone] March, [facility] [address] [facility] [id number] [address] [place] [address] March, [facility] [address] [place] [id number] [address] [place] [phone] March, [facility] [address] [facility] [id number] [address] [place] [phone] Feb, [facility] [address] [facility] [id number] [address] [place] [address] Jan, Fibromyalgia M79.7 [facility] [address] [facility] [id number] [address] [place] [phone] Jan, [facility] [address] [facility] [id number] [address] [place] [address] Dec, Degenerative disc disease, l umbar M51.36 [facility] [address] [facility] [id number] [address] [place] [phone] Dec, [facility] [address] [facility] [id number] [address] [place] [address] Nov, Degenerative disc disease, l umbar M51.36 ; Fibromyalgia M79.7 ; Restless leg syndrome G25.81 ; HTN (hypertension) I10 ; Hyperlipemia E78.5 ; Chronic tension-type headache, intractable G44.221 and OAB (overactive bladder) N32.81 [facility] [address] [facility] [id number] [address] [place] [address] Nov, [facility] [address] [facility] [id number] [address] [place] [address] Oct, [facility] [address] [facility] [id number] [address] [place] [phone] Oct, [address] [id number] [place] [id number] Oct, [facility] [address] [facility] [id number] [address] [place] [phone] Sep, [facility] [address] [facility] [id number] [address] [place] [phone] Aug, [facility] [address] [facility] [id number] [address] [place] [phone] Aug, [facility] [address] [facility] [id number] [address] [place] [phone] Aug, Degenerative disc disease, l umbar M51.36 [facility] [address] [place] [id number] [address] [place] [address] Aug, Degenerative disc disease, l umbar M51.36 ; Fibromyalgia M79.7 ; Migraines G43.909 ; Hyperlipemia E78.5 ; Muscle spasms of both lower extremities M62.838 ; Chronic tension-type headache, intractable G44.221 ; HTN (hypertension) I10 and Restless leg syndrome G25.81 [facility] [address] [facility] [id number] [address] [place] [phone] Jul, [facility] [address] [place] [id number] [address] [place] [phone] Jul, [facility] [address] [facility] [id number] [address] [place] [phone] Jul, [facility] [address] [facility] [id number] [address] [place] [address] Jun, Chronic tension-type headach e, intractable G44.221 ; Muscle spasms of both lower extremities M62.838 ; Fibromyalgia M79.7 ; Degenerative disc disease, lumbar M51.36 ; Restless leg syndrome G25.81 ; Migraines G43.909 ; Hyperlipemia E78.5 and Anxiety F41.9 [facility] [address] [id number] [address] [place] [phone] Jun, [facility] [address] [id number] [address] [place] [phone] Jun, [facility] [address] [id number] [address] [place] [phone] Jun, [facility] [address] [id number] [address] [place] [address] Jun, [facility] [address] [id number] [address] [place] [phone] May, Sebaceous cyst L72.3 [facility] [address] [id number] [address] [place] [phone] May, Low back pain M54.5 [facility] [address] [id number] [address] [place] [phone] Apr, [facility] [address] [id number] [address] [place] [phone] Apr, Fibromyalgia M79.7 [facility] [address] [id number] [address] [place] [address] Apr, Degenerative disc disease, l umbar M51.36 ; Fibromyalgia M79.7 ; Migraines G43.909 ; Hyperlipemia E78.5 ; Restless leg syndrome G25.81 ; Other intractable trigeminal autonomic cephalgia (TAC) G44.091 ; Secondary hypertension I15.9 and Anxiety F41.9 [facility] [address] [id number] [address] [place] [phone] March, Other nursing home (current) dr ug therapy Z79.899 and HTN (hypertension) I10 [facility] [address] [facility] [id number] [address] [place] [id number] March, Fibromyalgia M79.7 [facility] [address] [facility] [id number] [address] [place] [phone] Feb, [facility] [address] [facility] [id number] [address] [place] [phone] Feb, [facility] [address] [facility] [id number] [address] [place] [phone] Feb, [facility] [address] [facility] [id number] [address] [place] [phone] Feb, Hyperlipemia E78.5 [facility] [address] [facility] [id number] [address] [place] [phone] Feb, Migraines G43.909 ; Fibromya lgia M79.7 ; Degenerative disc disease, lumbar M51.36 ; Restless leg syndrome G25.81 ; HTN (hypertension) I10 and Tobacco abuse counseling Z71.6 [facility] [address] [facility] [id number] [address] [place] [phone] Feb, [facility] [address] [place] [id number] [address] [place] [phone] Jan, [facility] [address] [facility] [id number] [address] [place] [phone] Jan, [facility] [address] [place] [place] [id number] [address] [place] [phone] Dec, [facility] [address] [facility] [id number] [address] [place] [phone] Dec, Degenerative disc disease, l umbar M51.36 ; Restless leg syndrome G25.81 ; Migraines G43.909 ; HTN (hypertension) I10 ; Fibromyalgia M79.7 and Other nursing home (current) drug therapy Z79.899 [facility] [address] [facility] [id number] [address] [place] [phone] Dec, [facility] [address] [id number] [address] [place] [phone] Nov, [facility] [address] [facility] [id number] [address] [place] [phone] Nov, [facility] [address] [facility] [id number] [address] [place] [phone] Oct, [facility] [address] [facility] [id number] [address] [place] [phone] Oct, [facility] [address] [id number] [address] [place] [phone] Oct, [facility] [address] [facility] [id number] [address] [place] [phone] Sep, [facility] [address] [place] [id number] [address] [place] [phone] Sep, Routine gynecological examin ation V72.31 ; Degenerative disc disease, lumbar M51.36 ; Fibromyalgia M79.7 ; Restless leg syndrome G25.81 ; Migraines G43.909 and Well woman exam Z01.419 [facility] [address] [place] [id number] [address] [place] [id number] Sep, [facility] [address] [place] [id number] [address] [place] [id number] Aug, [facility] [address] [id number] [address] [place] [id number] Aug, Migraines G43.909 ; Degenera tive disc disease, lumbar M51.36 ; Fibromyalgia M79.7 ; Restless leg syndrome G25.81 and HTN (hypertension) I10 [facility] [address] [facility] [id number] [address] [place] [phone] Aug, [facility] [address] [id number] [address] [place] [phone] Aug, [facility] [address] [id number] [address] [place] [phone] Jul, [facility] [address] [facility] [id number] [address] [place] [phone] Jul, [facility] [address] [facility] [id number] [address] [place] [phone] Jun, Fibromyalgia 729.1 ; Lumbago 724.2 ; Restless leg syndrome 333.94 ; Migraines 346.90 and Elevated blood pressure (not hypertension) 796.2 [facility] [address] [id number] [address] [place] [phone] May, Fibromyalgia 729.1 ; Nontoxi c uninodular goiter 241.0 ; Lumbago 724.2 ; Restless leg syndrome 333.94 and Migraines 346.90 [facility] [address] [id number] [address] [place] [phone] Feb, [facility] [address] [id number] [address] [place] [id number] Feb, [facility] [address] [id number] [address] [place] [phone] Jan, [facility] [address] [id number] [address] [place] [phone] Jan, [facility] [address] [id number] [address] [place] [phone] Jan, [facility] [address] [id number] [address] [place] [phone] Jan, [facility] [address] [id number] [address] [place] [phone] Jan, [facility] [address] [facility] [id number] [address] [place] [phone] Jan, [facility] [address] [facility] [id number] [address] [place] [phone] Jan, [facility] [address] [id number] [address] [place] [phone] Jan, [facility] [address] [id number] [address] [place] [phone] Dec, 2014 [facility] [address] [id number] [address] [place] [phone] Dec, 2014 [facility] [address] [id number] [address] [place] [phone] Dec, 2014 [facility] [address] [id number] [address] [place] [phone] Dec, [facility] [address] [id number] [address] [place] [phone] Dec, [facility] [address] [id number] [address] [place] [phone] Dec, [facility] [address] [id number] [address] [place] [phone] Dec, [facility] [address] [id number] [address] [place] [phone] Dec, [facility] [address] [id number] [address] [place] [phone] Dec, [facility] [address] [id number] [address] [place] [phone] Dec, [facility] [address] [id number] [address] [place] [phone] Dec, [facility] [address] [id number] [address] [place] [phone] Nov, [facility] [address] [id number] [address] [place] [phone] Nov, IMMUNIZATIONS No Known Immunizations SOCIAL HISTORY Never Assessed REASON FOR VISIT PLAN OF CARE VITAL SIGNS Height 63 in 2014-12-23 Weight 155.8 lbs 2014-12-23 Temperature 99.1 degrees Fahrenheit 2014-12-23 Heart Rate 98 bpm 2014-12-23 Respiratory Rate 16 2014-12-23 Blood pressure systolic 141 mmHg 2014-12-23 Blood pressure diastolic 90 mmHg 2014-12-23 MEDICATIONS Unknown Medications RESULTS No Results PROCEDURES Procedure Date Ordered Result Body Site VISIT Dec 23, 2014 INSTRUCTIONS MEDICATIONS ADMINISTERED No Known Medications MEDICAL [...]
--- OUTSIDE RECORDS SUMMARY | 2020-02-04 14:56 | XMS REPORT ---
Author Author Caitie Suggs Doctor Organization [facility] Address Unknown Phone Unavailable Care Team Providers Care College Recruiter Name Role Phone Migration, Doctor Unavailable Unavailable PROBLEMS Type Condition ICD9-CM Code DMH32-CG Code Onset Dates Condition S tatus SNOMED Code Problem Restless leg syndrome G25.81 Active 47109997 Problem Vitamin D deficiency E55.9 Active 18981023 Problem Fibromyalgia M79.7 Active 9482409 7 Problem Degenerative disc disease, lumbar M51.36 Active 55790178 Problem Migraines G43.909 Active 07814224 Problem HTN (hypertension) I10 Active 3 0833765 Problem Muscle spasms of both lower extremities M62.838 Active 306018550 Problem OAB (overactive bladder) N32.81 Activ e 481949226 Problem Chronic pain disorder G89.4 Active 004358147 Problem Overweight (BMI 25.0-29.9) E66.3 Act ramana 554965598 Problem Anxiety F41.9 Active 86529840 Problem Angina at rest I20.8 Active 93078 8000 Problem Hyperlipemia E78.5 Active 7309399 4 Problem Chronic, continuous use of opioids F11.90 Active 119247903 Problem Type 2 diabetes mellitus wit h hyperglycemia, without long-term current use of insulin E11.65 Active 70678860 Problem Type 2 diabetes mellitus wit h diabetic polyneuropathy, without long-term current use of insulin E11.42 Active 18863 006 Problem Chronic tension-type headache, intractable G44.221 Active [id number] ALLERGIES No Information ENCOUNTERS Encounter Location Date Diagnosis [facility] [place] [address] [facility] [id number] [address] [place] [address] March, [facility] [place] [address] [facility] [id number] [address] [place] [address] Feb, [facility] [place] [address] [facility] [id number] [address] [place] [address] Feb, Degenerative disc disease, l umbar M51.[address] [place] [address] Feb, Degenerative disc disease, lumbar M51.[address] [address] Feb, Degenerative disc disease, lumbar M51.36 [facility] [place] [address] [facility] [id number] [address] [place] [address] Feb, [address] [address] Feb, [address] [place] [address] Feb, [address] [address] Jan, Screening mammogram, encounter for Z12.[address] [place] [address] Jan, Urine frequency R35.0 ; Degenerative dis c disease, lumbar M51.36 and Encounter for Papanicolaou smear for cervical cancer screening Z12.[address] [place] [address] Jan, Fibromyalgia M79.[address] [address] Jan, [address] [address] Jan, Degenerative disc disease, lumbar M51.36 and Fibromyalgia M79.[address] [address] Jan, [address] [address] Jan, [address] [address] Jan, Degenerative disc disease, lumbar M51.36 ; Fibromyalgia M79.7 and Type 2 diabetes mellitus with diabetic polyneuropathy, without long-term current use of insulin E11.[address] [address] Dec, [address] [place] [address] Dec, [address] [address] Dec, Fibromyalgia M79.7 [facility] [address] [address] Dec, [facility] [place] [address] [facility] [id number] [address] [place] [address] Dec, [address] [address] Dec, Degenerative disc disease, lumbar M51.36 ; HTN (hypertension) I10 ; Chronic pain disorder G89.4 ; Hyperlipemia E78.5 and Type 2 diabetes mellitus with diabetic polyneuropathy, without long-term current use of insulin E11.42 [facility] [place] [address] [facility] [id number] [address] [place] [address] Dec, Chronic pain disorder G89.4 [facility] [place] [address] [id number] [address] [place] [address] Dec, Chronic pain disorder G89.4 [facility] [place] [address] [id number] [address] [place] [address] Nov, Fibromyalgia M79.7 [facility] [place] [address] [id number] [address] [place] [address] Nov, [facility] [place] [address] [facility] [id number] [address] [place] [address] Nov, Fibromyalgia M79.7 ; Degener ative disc disease, lumbar M51.36 and Type 2 diabetes mellitus with hyperglycemia, without long-term current use of insulin E11.65 [facility] [place] [address] [id number] [address] [place] [address] Oct, Degenerative disc disease, l umbar M51.36 [facility] [place] [address] [id number] [address] [place] [address] Sep, Fibromyalgia M79.7 ; Degener ative disc disease, lumbar M51.36 and Restless leg syndrome G25.81 [facility] [place] [address] [facility] [id number] [address] [place] [address] 07 Sep, 2018 Fibromyalgia M79.7 [facility] [place] [address] [facility] [id number] [address] [place] [address] 05 Sep, 2018 [facility] [place] [address] [facility] [id number] [address] [place] [address] Aug, [facility] [place] [address] [place] [id number] [address] [place] [address] 10 Aug, 2018 Chronic pain disorder G89.4 [facility] [place] [address] [place] [id number] [address] [place] [address] 14 Jul, 2018 HTN (hypertension) I10 ; Typ e 2 diabetes mellitus with hyperglycemia, without long-term current use of insulin E11.65 ; Overweight (BMI 25.0-29.9) E66.3 ; Fibromyalgia M79.7 ; Restless leg syndrome G25.81 ; Chronic pain disorder G89.4 ; Hyperlipemia E78.5 and Angina at rest I20.8 [facility] [place] [address] [facility] [id number] [address] [place] [address] Jul, [facility] [place] [address] [place] [id number] [address] [place] [address] 11 Jul, 2018 Restless leg syndrome G25.81 [facility] [place] [address] [facility] [id number] [address] [place] [address] Jun, Fibromyalgia M79.7 [facility] [place] [address] [facility] [id number] [address] [place] [address] 16 Jun, 2018 Chronic pain disorder G89.4 [facility] [place] [address] [facility] [id number] [address] [place] [address] 15 Jun, 2018 [facility] [place] [address] [facility] [id number] [address] [place] [address] May, [facility] [place] [address] [facility] [id number] [address] [place] [address] May, Vitamin D deficiency E55.9 [facility] [place] [address] [facility] [id number] [address] [place] [address] May, Vitamin D deficiency E55.9 [facility] [place] [address] [id number] [place] [address] May, Chronic pain disorder G89.4 [place] [address] [facility] [id number] [address] [place] [address] May, Chronic pain disorder G89.4 [place] [address] [facility] [id number] [address] [place] [address] Apr, Chronic pain disorder G89.4 [place] [address] [facility] [id number] [address] [place] [address] Apr, Type 2 diabetes mellitus wit h diabetic polyneuropathy, without long-term current use of insulin E11.42 ; HTN (hypertension) I10 ; Hyperlipemia E78.5 ; Fibromyalgia M79.7 ; Degenerative disc disease, lumbar M51.36 ; Chronic pain disorder G89.4 ; Chronic, continuous use of opioids F11.90 ; Vitamin D deficiency E55.9 ; Anxiety F41.9 ; Chronic tension-type headache, intractable G44.221 and Overweight (BMI 25.0-29.9) E66.3 [place] [address] [place] [id number] [address] [place] [address] March, Chronic pain disorder G89.4 [place] [address] [facility] [id number] [address] [place] [address] March, Type 2 diabetes mellitus wit h diabetic polyneuropathy, without long-term current use of insulin E11.42 [place] [address] [facility] [id number] [address] [place] [address] Feb, Chronic pain disorder G89.4 [place] [address] [facility] [id number] [address] [place] [address] Jan, [facility] [place] [address] [facility] [id number] [address] [place] [address] Jan, Pharyngitis, unspecified vashti ology J02.9 ; Fibromyalgia M79.7 and Chronic pain disorder G89.4 [place] [address] [address] Jan, [place] [address] [address] Jan, [place] [address] [address] Jan, [place] [address] [address] Jan, Type 2 diabetes mellitus wit h diabetic polyneuropathy, without long-term current use of insulin E11.42 ; Type 2 diabetes mellitus with hyperglycemia, without long-term current use of insulin E11.65 ; Degenerative disc disease, lumbar M51.36 ; Fibromyalgia M79.7 ; Restless leg syndrome G25.81 ; HTN (hypertension) I10 ; Hyperlipemia E78.5 ; Anxiety F41.9 ; Migraines G43.909 and High risk medication use Z79.899 [place] [address] [address] Dec, Chronic pain disorder G89.4 [place] [address] [address] Nov, Chronic pain disorder G89.4 [place] [address] [place] [id number] [address] [place] [address] Nov, [place] [address] [address] Nov, Type 2 diabetes mellitus wit h hyperglycemia, without long-term current use of insulin E11.65 ; HTN (hypertension) I10 ; Hyperlipemia E78.5 ; Restless leg syndrome G25.81 ; Fibromyalgia M79.7 ; Chronic tension-type headache, intractable G44.221 ; Migraines G43.909 ; Chronic pain disorder G89.4 and Overweight (BMI 25.0-29.9) E66.3 [facility] [place] [address] [place] [id number] [address] [place] [address] Nov, [facility] [place] [address] [place] [id number] [address] [place] [address] Oct, Degenerative disc disease, l umbar M51.36 [place] [address] [place] [id number] [place] [address] Sep, Degenerative disc disease, l umbar M51.36 [place] [address] [place] [id number] [place] [address] Sep, [place] [address] [place] [id number] [place] [address] Aug, Degenerative disc disease, l umbar M51.36 [place] [address] [place] [id number] [place] [address] Aug, Fall from height of greater than 3 feet W19.XXXA ; Hematoma of left hip, subsequent encounter S70.02XD ; Fibromyalgia M79.7 ; Muscle spasms of both lower extremities M62.838 ; Anxiety F41.9 ; Degenerative disc disease, lumbar M51.36 ; Chronic pain disorder G89.4 and Chronic, continuous use of opioids F11.90 [place] [address] [address] Jul, [place] [address] [place] [id number] [place] [address] Jul, Degenerative disc disease, l umbar M51.36 [place] [address] [place] [id number] [address] [place] [address] Jun, Degenerative disc disease, l umbar M51.36 [place] [address] [place] [id number] [place] [address] May, Degenerative disc disease, l umbar M51.36 [place] [address] [place] [id number] [address] [place] [address] May, [facility] [place] [address] [id number] [address] [place] [address] Apr, Degenerative disc disease, l umbar M51.36 [facility] [place] [address] [id number] [address] [place] [address] Apr, Degenerative disc disease, l umbar M51.36 [facility] [place] [address] [id number] [address] [place] [address] March, Degenerative disc disease, l umbar M51.36 and Fall (on) (from) other stairs and steps, initial encounter W10.8XXA [facility] [place] [address] [id number] [address] [place] [address] March, [facility] [place] [address] [id number] [address] [place] [address] March, [facility] [place] [address] [id number] [address] [place] [address] March, [facility] [place] [address] [id number] [address] [place] [address] March, [facility] [place] [address] [id number] [address] [place] [address] Feb, [facility] [place] [address] [id number] [address] [place] [address] Jan, Fibromyalgia M79.7 [facility] [place] [address] [id number] [address] [place] [address] Jan, [facility] [place] [address] [id number] [address] [place] [address] Dec, Degenerative disc disease, l umbar M51.36 [facility] [place] [address] [id number] [address] [place] [address] Dec, [facility] [place] [address] [id number] [address] [place] [address] Nov, Degenerative disc disease, l umbar M51.36 ; Fibromyalgia M79.7 ; Restless leg syndrome G25.81 ; HTN (hypertension) I10 ; Hyperlipemia E78.5 ; Chronic tension-type headache, intractable G44.221 and OAB (overactive bladder) N32.81 [facility] [place] [address] [facility] [id number] [address] [place] [address] Nov, [facility] [place] [address] [facility] [id number] [address] [place] [address] Oct, [facility] [place] [address] [facility] [id number] [address] [place] [address] Oct, [place] [address] [id number] [place] [facility] [id number] Oct, [facility] [place] [address] [facility] [id number] [address] [place] [address] Sep, [facility] [place] [address] [facility] [id number] [address] [place] [address] Aug, [facility] [place] [address] [facility] [id number] [address] [place] [address] Aug, [facility] [place] [address] [facility] [id number] [address] [place] [address] Aug, Degenerative disc disease, l umbar M51.36 [facility] [place] [address] [facility] [id number] [address] [place] [address] Aug, Degenerative disc disease, l umbar M51.36 ; Fibromyalgia M79.7 ; Migraines G43.909 ; Hyperlipemia E78.5 ; Muscle spasms of both lower extremities M62.838 ; Chronic tension-type headache, intractable G44.221 ; HTN (hypertension) I10 and Restless leg syndrome G25.81 [facility] [place] [address] [facility] [id number] [address] [place] [address] Jul, [facility] [place] [address] [facility] [id number] [address] [place] [address] Jul, [facility] [place] [address] [id number] [address] [place] [address] Jul, [facility] [place] [address] [facility] [id number] [address] [place] [address] Jun, Chronic tension-type headach e, intractable G44.221 ; Muscle spasms of both lower extremities M62.838 ; Fibromyalgia M79.7 ; Degenerative disc disease, lumbar M51.36 ; Restless leg syndrome G25.81 ; Migraines G43.909 ; Hyperlipemia E78.5 and Anxiety F41.9 [facility] [place] [address] [id number] [address] [place] [address] Jun, [facility] [place] [address] [id number] [address] [place] [address] Jun, [facility] [place] [address] [facility] [id number] [address] [place] [address] Jun, [facility] [place] [address] [id number] [address] [place] [address] Jun, [facility] [place] [address] [id number] [address] [place] [address] May, Sebaceous cyst L72.3 [facility] [place] [address] [facility] [id number] [address] [place] [address] May, Low back pain M54.5 [facility] [place] [address] [facility] [id number] [address] [place] [address] Apr, [facility] [place] [address] [id number] [address] [place] [address] Apr, Fibromyalgia M79.7 [facility] [place] [address] [facility] [id number] [address] [place] [address] Apr, Degenerative disc disease, l umbar M51.36 ; Fibromyalgia M79.7 ; Migraines G43.909 ; Hyperlipemia E78.5 ; Restless leg syndrome G25.81 ; Other intractable trigeminal autonomic cephalgia (TAC) G44.091 ; Secondary hypertension I15.9 and Anxiety F41.9 [facility] [place] [address] [facility] [id number] [address] [place] [address] March, Other intermediate card tender (current) dr holloway therapy Z79.899 and HTN (hypertension) I10 [facility] [place] [address] [facility] [id number] [address] [place] [address] March, Fibromyalgia M79.7 [facility] [place] [address] [facility] [id number] [address] [place] [address] Feb, [facility] [place] [address] [facility] [id number] [address] [place] [address] Feb, [facility] [place] [address] [facility] [id number] [address] [place] [address] Feb, [facility] [place] [address] [place] [id number] [address] [place] [address] Feb, Hyperlipemia E78.5 [facility] [place] [address] [facility] [id number] [address] [place] [id number] Feb, Migraines G43.909 ; Fibromya lgia M79.7 ; Degenerative disc disease, lumbar M51.36 ; Restless leg syndrome G25.81 ; HTN (hypertension) I10 and Tobacco abuse counseling Z71.6 [facility] [place] [address] [facility] [id number] [address] [place] [phone] Feb, [facility] [place] [address] [facility] [id number] [address] [place] [phone] Jan, [facility] [place] [address] [facility] [id number] [address] [place] [id number] Jan, [facility] [place] [address] [id number] [address] [place] [id number] Dec, [facility] [place] [address] [facility] [id number] [address] [place] [id number] Dec, Degenerative disc disease, l umbar M51.36 ; Restless leg syndrome G25.81 ; Migraines G43.909 ; HTN (hypertension) I10 ; Fibromyalgia M79.7 and Other snf (current) drug therapy Z79.899 [facility] [place] [address] [id number] [address] [place] [phone] Dec, [facility] [place] [address] [id number] [address] [place] [phone] Nov, [facility] [place] [address] [id number] [address] [place] [phone] Nov, [facility] [place] [address] [id number] [address] [place] [phone] Oct, [facility] [place] [address] [id number] [address] [place] [phone] Oct, [facility] [place] [address] [facility] [id number] [address] [place] [phone] Oct, [facility] [place] [address] [facility] [id number] [address] [place] [phone] Sep, [facility] [place] [address] [facility] [id number] [address] [place] [id number] Sep, Routine gynecological examin ation V72.31 ; Degenerative disc disease, lumbar M51.36 ; Fibromyalgia M79.7 ; Restless leg syndrome G25.81 ; Migraines G43.909 and Well woman exam Z01.419 [facility] [place] [address] [facility] [id number] [address] [place] [id number] Sep, [facility] [place] [address] [id number] [address] [place] [id number] Aug, [facility] [place] [address] [facility] [id number] [address] [place] [address] Aug, Migraines G43.909 ; Degenera tive disc disease, lumbar M51.36 ; Fibromyalgia M79.7 ; Restless leg syndrome G25.81 and HTN (hypertension) I10 [facility] [place] [address] [facility] [id number] [address] [place] [phone] Aug, [facility] [place] [address] [facility] [id number] [address] [place] [id number] Aug, [facility] [place] [address] [facility] [id number] [address] [place] [id number] Jul, [facility] [place] [address] [facility] [id number] [address] [place] [phone] Jul, [facility] [place] [address] [facility] [id number] [address] [place] [address] Jun, Fibromyalgia 729.1 ; Lumbago 724.2 ; Restless leg syndrome 333.94 ; Migraines 346.90 and Elevated blood pressure (not hypertension) 796.2 [facility] [place] [address] [facility] [id number] [address] [place] [phone] May, Fibromyalgia 729.1 ; Nontoxi c uninodular goiter 241.0 ; Lumbago 724.2 ; Restless leg syndrome 333.94 and Migraines 346.90 [facility] [place] [address] [facility] [id number] [address] [place] [id number] Feb, [facility] [place] [address] [facility] [id number] [address] [place] [phone] Feb, [facility] [place] [address] [facility] [id number] [address] [place] [phone] Jan, [facility] [place] [address] [facility] [id number] [address] [place] [phone] Jan, [facility] [place] [address] [id number] [address] [place] [phone] Jan, [facility] [place] [address] [facility] [id number] [address] [place] [phone] Jan, [facility] [place] [address] [facility] [id number] [address] [place] [phone] Jan, [facility] [place] [address] [facility] [id number] [address] [place] [phone] Jan, [facility] [address] [id number] [address] [place] [address], [place] [address] Jan, [facility] [address] [id number] [address] [place] [address], [place] [address] Jan, [facility] [address] [id number] [address] [place] [address], [place] [address] Dec, 2014 [facility] [address] [id number] [address] [place] [address], [place] [address] Dec, 2014 [facility] [address] [id number] [address] [place] [address], [place] [phone] Dec, 2014 [facility] [address] [id number] [address] [place] [address], [place] [address] Dec, 2014 [facility] [address] [id number] [address] [place] [address], [place] [address] Dec, 2014 [facility] [address] [id number] [address] [place] [address], [place] [address] Dec, 2014 [facility] [address] [id number] [address] [place] [address], [place] [address] Dec, 2014 [facility] [address] [id number] [address] [place] [address], [place] [address] Dec, 2014 [facility] [address] [id number] [address] [place] [phone] Dec, 2014 [facility] [address] [id number] [address] [place] [phone] Dec, [facility] [address] [id number] [address] [place] [phone] Dec, [facility] [address] [id number] [address] [place] [address], [place] [address] Nov, [facility] [address] [id number] [address] [place] [phone] Nov, IMMUNIZATIONS No Known Immunizations SOCIAL HISTORY Never Assessed REASON FOR VISIT EMR-[facility] [place] PLAN OF CARE VITAL SIGNS MEDICATIONS Unknown [...]
--- OUTSIDE RECORDS SUMMARY | 2020-02-04 14:57 | XMS REPORT ---
Author Author Caitie FUENTES Organization [facility] Address [address] [place] [address] Care Team Providers Care Pricing Lead Name Role Phone AMY FUENTES Unavailable PROBLEMS Type Condition ICD9-CM Code [id number] Code Onset Dates Condition S tatus SNOMED Code Problem Restless leg syndrome G25.81 Active 57493913 Problem Vitamin D deficiency E55.9 Active 82265333 Problem Fibromyalgia M79.7 Active 6042655 7 Problem Degenerative disc disease, lumbar M51.36 Active 13765467 Problem Migraines G43.909 Active 33593490 Problem HTN (hypertension) I10 Active 3 8945742 Problem Muscle spasms of both lower extremities M62.838 Active 313628397 Problem OAB (overactive bladder) N32.81 Activ e 426350383 Problem Chronic pain disorder G89.4 Active 028045706 Problem Overweight (BMI 25.0-29.9) E66.3 Act ramana 512340617 Problem Anxiety F41.9 Active 68296323 Problem Angina at rest I20.8 Active 87026 8000 Problem Hyperlipemia E78.5 Active 5423659 4 Problem Chronic, continuous use of opioids F11.90 Active 699479283 Problem Type 2 diabetes mellitus wit h hyperglycemia, without long-term current use of insulin E11.65 Active 99394197 Problem Type 2 diabetes mellitus wit h diabetic polyneuropathy, without long-term current use of insulin E11.42 Active 48595 006 Problem Chronic tension-type headache, intractable G44.221 Active 325351342 ALLERGIES Substance Reaction Event Type Date Status Amoxicillin hives Drug Allergy Jan, Active tape rash Non Drug Allergy Jan, Active ENCOUNTERS Encounter Location Date Diagnosis [facility] [address] [facility] [id number] [address] [place] [address] Feb, [facility] [address] [place] [phone] Feb, [facility] [address] [address] Feb, [facility] [address] [address] Jan, Screening mammogram, encounter for Z12.[address] [address] Jan, Urine frequency R35.0 ; Degenerative dis c disease, lumbar M51.36 and Encounter for Papanicolaou smear for cervical cancer screening Z12.[address] [place] [address] Jan, Fibromyalgia M79.[address] [address] Jan, [address] [address] Jan, Degenerative disc disease, lumbar M51.36 and Fibromyalgia M79.[address] [address] Jan, [address] [address] Jan, [address] [address] Jan, Degenerative disc disease, lumbar M51.36 ; Fibromyalgia M79.7 and Type 2 diabetes mellitus with diabetic polyneuropathy, without long-term current use of insulin E11.[address] [address] Dec, [address] [address] Dec, [address] [address] Dec, Fibromyalgia M79.[address] [address] Dec, [facility] [address] [facility] [id number] [address] [place] [address] Dec, [facility] [address] [address] Dec, Degenerative disc disease, lumbar M51.36 ; HTN (hypertension) I10 ; Chronic pain disorder G89.4 ; Hyperlipemia E78.5 and Type 2 diabetes mellitus with diabetic polyneuropathy, without long-term current use of insulin E11.42 [facility] [address] [id number] [address] [place] [address] Dec, Chronic pain disorder G89.4 [facility] [address] [id number] [address] [place] [address] Dec, Chronic pain disorder G89.4 [facility] [address] [id number] [address] [place] [address] Nov, Fibromyalgia M79.7 [facility] [address] [facility] [id number] [address] [place] [address] Nov, [place] [address] [facility] [id number] [address] [place] [address] Nov, Fibromyalgia M79.7 ; Degener ative disc disease, lumbar M51.36 and Type 2 diabetes mellitus with hyperglycemia, without long-term current use of insulin E11.65 [place] [address] [facility] [id number] [address] [place] [address] Oct, Degenerative disc disease, l umbar M51.36 [facility] [address] [facility] [id number] [address] [place] [address] Sep, Fibromyalgia M79.7 ; Degener ative disc disease, lumbar M51.36 and Restless leg syndrome G25.81 [facility] [address] [facility] [id number] [address] [place] [phone] Sep, Fibromyalgia M79.7 [facility] [address] [facility] [id number] [address] [place] [address] Sep, [facility] [address] [facility] [id number] [address] [place] [address] Aug, [facility] [address] [facility] [id number] [address] [place] [id number] 10 Aug, 2018 Chronic pain disorder G89.4 [facility] [address] [facility] [id number] [address] [place] [id number] 14 Jul, 2018 HTN (hypertension) I10 ; Typ e 2 diabetes mellitus with hyperglycemia, without long-term current use of insulin E11.65 ; Overweight (BMI 25.0-29.9) E66.3 ; Fibromyalgia M79.7 ; Restless leg syndrome G25.81 ; Chronic pain disorder G89.4 ; Hyperlipemia E78.5 and Angina at rest I20.8 [facility] [address] [facility] [id number] [address] [place] [id number] 13 Jul, 2018 [facility] [address] [facility] [id number] [address] [place] [id number] 11 Jul, 2018 Restless leg syndrome G25.81 [facility] [address] [facility] [id number] [address] [place] [address] Jun, Fibromyalgia M79.7 [facility] [address] [facility] [id number] [address] [place] [id number] 16 Jun, 2018 Chronic pain disorder G89.4 [facility] [address] [facility] [id number] [address] [place] [phone] Jun, [facility] [address] [facility] [id number] [address] [place] [address] May, [facility] [address] [facility] [id number] [address] [place] [phone] May, Vitamin D deficiency E55.9 [facility] [address] [facility] [id number] [address] [place] [address] May, Vitamin D deficiency E55.9 [facility] [address] [id number] [place] [address] May, Chronic pain disorder G89.4 [facility] [address] [facility] [id number] [address] [place] [address] May, Chronic pain disorder G89.4 [place] [id number] [place] [id number] [address] [place] [address] Apr, Chronic pain disorder G89.4 [facility] [address] [place] [id number] [address] [place] [address] Apr, Type 2 diabetes mellitus wit h diabetic polyneuropathy, without long-term current use of insulin E11.42 ; HTN (hypertension) I10 ; Hyperlipemia E78.5 ; Fibromyalgia M79.7 ; Degenerative disc disease, lumbar M51.36 ; Chronic pain disorder G89.4 ; Chronic, continuous use of opioids F11.90 ; Vitamin D deficiency E55.9 ; Anxiety F41.9 ; Chronic tension-type headache, intractable G44.221 and Overweight (BMI 25.0-29.9) E66.3 [place] [address] [place] [id number] [address] [place] [address] March, Chronic pain disorder G89.4 [place] [address] [address] March, Type 2 diabetes mellitus wit h diabetic polyneuropathy, without long-term current use of insulin E11.42 [place] [address] [address] Feb, Chronic pain disorder G89.4 [place] [address] [place] [id number] [address] [place] [address] Jan, [place] [address] [address] Jan, Pharyngitis, unspecified vashti ology J02.9 ; Fibromyalgia M79.7 and Chronic pain disorder G89.4 [place] [address] [place] [id number] [address] [place] [address] Jan, [place] [address] [place] [id number] [address] [place] [phone] Jan, [place] [address] [place] [id number] [address] [place] [address] Jan, [place] [address] [address] Jan, Type 2 diabetes mellitus wit h diabetic polyneuropathy, without long-term current use of insulin E11.42 ; Type 2 diabetes mellitus with hyperglycemia, without long-term current use of insulin E11.65 ; Degenerative disc disease, lumbar M51.36 ; Fibromyalgia M79.7 ; Restless leg syndrome G25.81 ; HTN (hypertension) I10 ; Hyperlipemia E78.5 ; Anxiety F41.9 ; Migraines G43.909 and High risk medication use Z79.899 [place] [address] [address] Dec, Chronic pain disorder G89.4 [place] [address] [address] Nov, Chronic pain disorder G89.4 [place] [address] [address] Nov, [place] [address] [address] Nov, Type 2 diabetes mellitus wit h hyperglycemia, without long-term current use of insulin E11.65 ; HTN (hypertension) I10 ; Hyperlipemia E78.5 ; Restless leg syndrome G25.81 ; Fibromyalgia M79.7 ; Chronic tension-type headache, intractable G44.221 ; Migraines G43.909 ; Chronic pain disorder G89.4 and Overweight (BMI 25.0-29.9) E66.3 [place] [address] [address] Nov, [address] [address] Oct, Degenerative disc disease, l umbar M51.36 [place] [address] [place] [id number] [place] [address] Sep, Degenerative disc disease, l umbar M51.36 [place] [address] [facility] [id number] [address] [place] [address] Sep, [place] [address] [facility] [id number] [address] [place] [address] Aug, Degenerative disc disease, l umbar M51.36 [place] [address] [place] [id number] [address] [place] [address] Aug, Fall from height of greater than 3 feet W19.XXXA ; Hematoma of left hip, subsequent encounter S70.02XD ; Fibromyalgia M79.7 ; Muscle spasms of both lower extremities M62.838 ; Anxiety F41.9 ; Degenerative disc disease, lumbar M51.36 ; Chronic pain disorder G89.4 and Chronic, continuous use of opioids F11.90 [place] [address] [facility] [id number] [address] [place] [address] Jul, [place] [address] [place] [id number] [address] [place] [address] Jul, Degenerative disc disease, l umbar M51.36 [place] [address] [facility] [id number] [address] [place] [address] Jun, Degenerative disc disease, l umbar M51.36 [place] [address] [facility] [id number] [address] [place] [address] May, Degenerative disc disease, l umbar M51.36 [place] [address] [facility] [id number] [address] [place] [address] May, [place] [address] [facility] [id number] [address] [place] [address] Apr, Degenerative disc disease, l umbar M51.36 [place] [address] [facility] [id number] [address] [place] [address] Apr, Degenerative disc disease, l umbar M51.36 [place] [address] [facility] [id number] [address] [place] [address] March, Degenerative disc disease, l umbar M51.36 and Fall (on) (from) other stairs and steps, initial encounter W10.8XXA [facility] [address] [id number] [address] [place] [phone] March, [facility] [address] [id number] [address] [place] [id number] March, [facility] [address] [facility] [id number] [address] [place] [phone] March, [facility] [address] [id number] [address] [place] [id number] March, [facility] [address] [facility] [id number] [address] [place] [id number] Feb, [facility] [address] [facility] [id number] [address] [place] [address] Jan, Fibromyalgia M79.7 [facility] [address] [facility] [id number] [address] [place] [id number] Jan, [facility] [address] [facility] [id number] [address] [place] [address] Dec, Degenerative disc disease, l umbar M51.36 [facility] [address] [facility] [id number] [address] [place] [address] Dec, [facility] [address] [facility] [id number] [address] [place] [address] Nov, Degenerative disc disease, l umbar M51.36 ; Fibromyalgia M79.7 ; Restless leg syndrome G25.81 ; HTN (hypertension) I10 ; Hyperlipemia E78.5 ; Chronic tension-type headache, intractable G44.221 and OAB (overactive bladder) N32.81 [facility] [address] [facility] [id number] [address] [place] [address] Nov, [facility] [address] [facility] [id number] [address] [place] [address] Oct, [facility] [address] [facility] [id number] [address] [place] [address] Oct, [facility] [address] [id number] [place] [id number] Oct, [facility] [address] [facility] [id number] [address] [place] [address] Sep, [facility] [address] [facility] [id number] [address] [place] [address] Aug, [facility] [address] [facility] [id number] [address] [place] [id number] Aug, [facility] [address] [facility] [id number] [address] [place] [address] Aug, Degenerative disc disease, l umbar M51.36 [facility] [address] [facility] [id number] [address] [place] [address] Aug, Degenerative disc disease, l umbar M51.36 ; Fibromyalgia M79.7 ; Migraines G43.909 ; Hyperlipemia E78.5 ; Muscle spasms of both lower extremities M62.838 ; Chronic tension-type headache, intractable G44.221 ; HTN (hypertension) I10 and Restless leg syndrome G25.81 [facility] [address] [facility] [id number] [address] [place] [phone] Jul, [facility] [address] [facility] [id number] [address] [place] [id number] Jul, [facility] [address] [facility] [id number] [address] [place] [address] Jul, [facility] [address] [facility] [id number] [address] [place] [id number] Jun, Chronic tension-type headach e, intractable G44.221 ; Muscle spasms of both lower extremities M62.838 ; Fibromyalgia M79.7 ; Degenerative disc disease, lumbar M51.36 ; Restless leg syndrome G25.81 ; Migraines G43.909 ; Hyperlipemia E78.5 and Anxiety F41.9 [facility] [address] [facility] [id number] [address] [place] [address] Jun, [facility] [address] [facility] [id number] [address] [place] [phone] Jun, [facility] [address] [facility] [id number] [address] [place] [address] Jun, [facility] [address] [facility] [id number] [address] [place] [address] Jun, [facility] [address] [facility] [id number] [address] [place] [address] May, Sebaceous cyst L72.3 [facility] [address] [facility] [id number] [address] [place] [address] May, Low back pain M54.5 [facility] [address] [place] [id number] [address] [place] [address] Apr, [facility] [address] [place] [id number] [address] [place] [address] Apr, Fibromyalgia M79.7 [place] [address] [place] [id number] [place] [address] Apr, Degenerative disc disease, l umbar M51.36 ; Fibromyalgia M79.7 ; Migraines G43.909 ; Hyperlipemia E78.5 ; Restless leg syndrome G25.81 ; Other intractable trigeminal autonomic cephalgia (TAC) G44.091 ; Secondary hypertension I15.9 and Anxiety F41.9 [facility] [address] [facility] [id number] [address] [place] [address] March, Other shelter (current) dr amie potter Z79.899 and HTN (hypertension) I10 [facility] [address] [facility] [id number] [address] [place] [address] March, Fibromyalgia M79.7 [facility] [address] [facility] [id number] [address] [place] [id number] Feb, [facility] [address] [facility] [id number] [address] [place] [phone] Feb, [facility] [address] [facility] [id number] [address] [place] [address] Feb, [facility] [address] [facility] [id number] [address] [place] [address] Feb, Hyperlipemia E78.5 [facility] [address] [facility] [id number] [address] [place] [address] Feb, Migraines G43.909 ; Fibromya lgia M79.7 ; Degenerative disc disease, lumbar M51.36 ; Restless leg syndrome G25.81 ; HTN (hypertension) I10 and Tobacco abuse counseling Z71.6 [facility] [address] [place] [id number] [address] [place] [address] Feb, [facility] [address] [place] [id number] [address] [place] [phone] Jan, [facility] [address] [place] [id number] [address] [place] [id number] Jan, [facility] [address] [place] [id number] [address] [place] [id number] Dec, [facility] [address] [place] [id number] [address] [place] [address] Dec, Degenerative disc disease, l umbar M51.36 ; Restless leg syndrome G25.81 ; Migraines G43.909 ; HTN (hypertension) I10 ; Fibromyalgia M79.7 and Other shelter (current) drug therapy Z79.899 [facility] [address] [facility] [id number] [address] [place] [id number] Dec, [facility] [address] [facility] [id number] [address] [place] [id number] Nov, [facility] [address] [place] [id number] [address] [place] [id number] Nov, [facility] [address] [id number] [address] [place] [address] Oct, [facility] [address] [id number] [address] [place] [address] Oct, [facility] [address] [id number] [address] [place] [phone] Oct, [facility] [address] [id number] [address] [place] [id number] Sep, [facility] [address] [id number] [address] [place] [id number] Sep, Routine gynecological examin ation V72.31 ; Degenerative disc disease, lumbar M51.36 ; Fibromyalgia M79.7 ; Restless leg syndrome G25.81 ; Migraines G43.909 and Well woman exam Z01.419 [facility] [address] [facility] [id number] [address] [place] [id number] Sep, [facility] [address] [id number] [address] [place] [phone] Aug, [facility] [address] [id number] [address] [place] [address] Aug, Migraines G43.909 ; Degenera tive disc disease, lumbar M51.36 ; Fibromyalgia M79.7 ; Restless leg syndrome G25.81 and HTN (hypertension) I10 [facility] [address] [id number] [address] [place] [phone] Aug, [facility] [address] [id number] [address] [place] [id number] Aug, [facility] [address] [id number] [address] [place] [id number] Jul, [facility] [address] [id number] [address] [place] [id number] Jul, [facility] [address] [id number] [address] [place] [phone] Jun, Fibromyalgia 729.1 ; Lumbago 724.2 ; Restless leg syndrome 333.94 ; Migraines 346.90 and Elevated blood pressure (not hypertension) 796.2 [facility] [address] [id number] [address] [place] [address] May, Fibromyalgia 729.1 ; Nontoxi c uninodular goiter 241.0 ; Lumbago 724.2 ; Restless leg syndrome 333.94 and Migraines 346.90 [facility] [address] [id number] [address] [place] [phone] Feb, [facility] [address] [id number] [address] [place] [phone] Feb, [facility] [address] [facility] [id number] [address] [place] [phone] Jan, [facility] [address] [id number] [address] [place] [id number] Jan, [facility] [address] [id number] [address] [place] [id number] Jan, [facility] [address] [id number] [address] [place] [phone] Jan, [facility] [address] [facility] [id number] [address] [place] [id number] Jan, [facility] [address] [id number] [address] [place] [id number] Jan, [facility] [address] [id number] [address] [place] [phone] Jan, [facility] [address] [id number] [address] [place] [id number] Jan, [facility] [address] [facility] [id number] [address] [place] [phone] Dec, [facility] [address] [facility] [id number] [address] [place] [phone] Dec, [facility] [address] [id number] [address] [place] [id number] Dec, 2014 [facility] [address] [id number] [address] [place] [phone] Dec, 2014 [facility] [address] [facility] [id number] [address] [place] [phone] Dec, 2014 [facility] [address] [id number] [address] [place] [id number] Dec, 2014 [facility] [address] [id number] [address] [place] [id number] Dec, 2014 [facility] [address] [id number] [address] [place] [phone] Dec, 2014 [facility] [address] [id number] [address] [place] [id number] Dec, 2014 [facility] [address] [id number] [address] [place] [id number] Dec, 2014 [facility] [address] [id number] [address] [place] [id number] Dec, 2014 [facility] [address] [id number] [address] [place] [phone] Nov, [facility] [address] [facility] [id number] [address] [place] [phone] Nov, IMMUNIZATIONS No Known Immunizations SOCIAL HISTORY Never Assessed REASON FOR VISIT New provider visit-est care, discuss referral to back surgeon Dr Tucker, back is guerita lance MA PLAN OF CARE Activity Details Follow Up prn Reason: VITAL SIGNS Height 62 in 2019-01-28 Weight 164 lbs 2019-01-28 Temperature 99.4 degrees Fahrenheit 2019-01-28 BMI 29.99 kg/m2 2019-01-28 Blood pressure systolic 124 mmHg 2019-01-28 Blood pressure diastolic 84 mmHg 2019-01-28 MEDICATIONS Medication Instructions Dosage Frequency Start Date End Date Duration S chago BuSpar 10 mg Orally 3 times a day 1 tablet 8h 15 Apr, 2018 90 days Not-Taking Gabapentin 400 mg Orally 3 times a day 1 capsule 8h 28 days Active Meloxicam 15 mg Orally Once a day 1 tablet 24h Active Propranolol HCl 10 mg Orally Twice a day 1 tablet 12h Apr, Active Hydrocodone-Acetaminophen 10-325 MG Orally every 6 hrs 1 tablet as needed 6h Dec, 28 days Active Lisinopril 10 mg Orally Once a day 1 tablet 24h Active Crestor 10 MG Orally Once a day 4 tablets 24h Jan, Active Glucocard Expression Test - subcutaneously 2 times a day test 2 times per day 12h Nov, 30 days Active MetFORMIN HCl ER 500 mg Orally daily 1 tablet with evening meal 24h Nov, Active RESULTS No Results PROCEDURES No Known [...]
--- OUTSIDE RECORDS SUMMARY | 2020-02-04 14:57 | XMS REPORT ---
Author Author Florencio APONTE Organization [facility] Address [address] [place] [address] Care Team Providers Care Admissions Representative Name Role Phone FLORENCIO APONTE Unavailable PROBLEMS Type Condition ICD9-CM Code [id number] Code Onset Dates Condition S tatus SNOMED Code Problem Muscle spasms of both lower extremities M62.838 Active 994912671 Problem Chronic pain disorder G89.4 Active 713762443 Problem OAB (overactive bladder) N32.81 Activ e 336890538 Problem Angina at rest I20.8 Active 06992 8000 Problem Overweight (BMI 25.0-29.9) E66.3 Act ramana 971212251 Problem Type 2 diabetes mellitus wit h hyperglycemia, without long-term current use of insulin E11.65 Active 68356097 Problem Chronic, continuous use of opioids F11.90 Active 108658959 Problem Chronic tension-type headache, intractable G44.221 Active 218609006 Problem Type 2 diabetes mellitus wit h diabetic polyneuropathy, without long-term current use of insulin E11.42 Active 00879 006 Problem Vitamin D deficiency E55.9 Active 48039660 Problem Restless leg syndrome G25.81 Active 51086286 Problem HTN (hypertension) I10 Active 3 1542539 Problem Migraines G43.909 Active 94896939 Problem Degenerative disc disease, lumbar M51.36 Active 91149994 Problem Hyperlipemia E78.5 Active 8348663 4 Problem Fibromyalgia M79.7 Active 5665311 7 Problem Anxiety F41.9 Active 17064017 ALLERGIES No Information ENCOUNTERS Encounter Location Date Diagnosis [facility] [address] [facility] [id number] [address] [place] [phone] Oct, [facility] [address] [facility] [id number] [address] [place] [phone] Oct, [facility] [address] [facility] [id number] [address] [place] [phone] Sep, [facility] [address] [facility] [id number] [address] [place] [phone] Sep, [facility] [address] [facility] [id number] [address] [place] [phone] Aug, [facility] [address] [facility] [id number] [address] [place] [id number] 10 Aug, 2018 Chronic pain disorder G89.4 [facility] [address] [facility] [id number] [address] [place] [id number] 14 Jul, 2018 HTN (hypertension) I10 ; Typ e 2 diabetes mellitus with hyperglycemia, without long-term current use of insulin E11.65 ; Overweight (BMI 25.0-29.9) E66.3 ; Fibromyalgia M79.7 ; Restless leg syndrome G25.81 ; Chronic pain disorder G89.4 ; Hyperlipemia E78.5 and Angina at rest I20.8 [facility] [address] [facility] [id number] [address] [place] [id number] 13 Jul, 2018 [facility] [address] [facility] [id number] [address] [place] [phone] 11 Jul, 2018 Restless leg syndrome G25.81 [facility] [address] [facility] [id number] [address] [place] [id number] 28 Jun, 2018 Fibromyalgia M79.7 [facility] [address] [facility] [id number] [address] [place] [id number] 16 Jun, 2018 Chronic pain disorder G89.4 [facility] [address] [facility] [id number] [address] [place] [phone] Jun, [facility] [address] [facility] [id number] [address] [place] [phone] May, [facility] [address] [facility] [id number] [address] [place] [phone] May, Vitamin D deficiency E55.9 [facility] [address] [facility] [id number] [address] [place] [phone] May, Vitamin D deficiency E55.9 [facility] [id number] [place] [phone] May, Chronic pain disorder G89.4 [facility] [address] [facility] [id number] [address] [place] [phone] May, Chronic pain disorder G89.4 [place] [address] [facility] [id number] [address] [place] [phone] Apr, Chronic pain disorder G89.4 [facility] [address] [facility] [id number] [address] [place] [phone] Apr, Type 2 diabetes mellitus wit h diabetic polyneuropathy, without long-term current use of insulin E11.42 ; HTN (hypertension) I10 ; Hyperlipemia E78.5 ; Fibromyalgia M79.7 ; Degenerative disc disease, lumbar M51.36 ; Chronic pain disorder G89.4 ; Chronic, continuous use of opioids F11.90 ; Vitamin D deficiency E55.9 ; Anxiety F41.9 ; Chronic tension-type headache, intractable G44.221 and Overweight (BMI 25.0-29.9) E66.3 [place] [address] [facility] [id number] [address] [place] [phone] March, Chronic pain disorder G89.4 [place] [address] [facility] [id number] [address] [place] [phone] March, Type 2 diabetes mellitus wit h diabetic polyneuropathy, without long-term current use of insulin E11.42 [place] [address] [facility] [id number] [address] [place] [phone] Feb, Chronic pain disorder G89.4 [place] [address] [facility] [id number] [address] [place] [phone] Jan, [place] [address] [facility] [id number] [address] [place] [phone] Jan, Pharyngitis, unspecified vashti ology J02.9 ; Fibromyalgia M79.7 and Chronic pain disorder G89.4 [place] [address] [phone] Jan, [place] [address] [phone] Jan, [place] [address] [phone] Jan, [place] [address] [address] Jan, Type 2 diabetes mellitus wit h diabetic polyneuropathy, without long-term current use of insulin E11.42 ; Type 2 diabetes mellitus with hyperglycemia, without long-term current use of insulin E11.65 ; Degenerative disc disease, lumbar M51.36 ; Fibromyalgia M79.7 ; Restless leg syndrome G25.81 ; HTN (hypertension) I10 ; Hyperlipemia E78.5 ; Anxiety F41.9 ; Migraines G43.909 and High risk medication use Z79.899 [place] [address] [address] Dec, Chronic pain disorder G89.4 [place] [address] [address] Nov, Chronic pain disorder G89.4 [place] [address] [address] Nov, [place] [address] [address] Nov, Type 2 diabetes mellitus wit h hyperglycemia, without long-term current use of insulin E11.65 ; HTN (hypertension) I10 ; Hyperlipemia E78.5 ; Restless leg syndrome G25.81 ; Fibromyalgia M79.7 ; Chronic tension-type headache, intractable G44.221 ; Migraines G43.909 ; Chronic pain disorder G89.4 and Overweight (BMI 25.0-29.9) E66.3 [place] [address] [phone] Nov, [facility] [address] [id number] Oct, Degenerative disc disease, l umbar M51.36 [facility] [address] [address] Sep, Degenerative disc disease, l umbar M51.36 [facility] [address] [address] Sep, [facility] [address] [place] [id number] [place] [phone] Aug, Degenerative disc disease, l umbar M51.36 [place] [address] [phone] Aug, Fall from height of greater than 3 feet W19.XXXA ; Hematoma of left hip, subsequent encounter S70.02XD ; Fibromyalgia M79.7 ; Muscle spasms of both lower extremities M62.838 ; Anxiety F41.9 ; Degenerative disc disease, lumbar M51.36 ; Chronic pain disorder G89.4 and Chronic, continuous use of opioids F11.90 [facility] [address] [address] Jul, [facility] [address] [address] Jul, Degenerative disc disease, l umbar M51.36 [facility] [address] [address] Jun, Degenerative disc disease, l umbar M51.36 [facility] [address] [address] May, Degenerative disc disease, l umbar M51.36 [facility] [address] [place] [id number] [place] [phone] May, [facility] [address] [address] Apr, Degenerative disc disease, l umbar M51.36 [facility] [address] [id number] [address] [place] [id number] Apr, Degenerative disc disease, l umbar M51.36 [facility] [address] [id number] [address] [place] [id number] March, Degenerative disc disease, l umbar M51.36 and Fall (on) (from) other stairs and steps, initial encounter W10.8XXA [facility] [address] [id number] [address] [place] [phone] March, [facility] [address] [id number] [address] [place] [phone] March, [facility] [address] [id number] [address] [place] [phone] March, [facility] [address] [id number] [address] [place] [id number] March, [facility] [address] [id number] [address] [place] [phone] Feb, [facility] [address] [id number] [address] [place] [id number] Jan, Fibromyalgia M79.7 [facility] [address] [id number] [address] [place] [phone] Jan, [facility] [address] [id number] [address] [place] [id number] Dec, Degenerative disc disease, l umbar M51.36 [facility] [address] [id number] [address] [place] [id number] Dec, [facility] [address] [id number] [address] [place] [id number] Nov, Degenerative disc disease, l umbar M51.36 ; Fibromyalgia M79.7 ; Restless leg syndrome G25.81 ; HTN (hypertension) I10 ; Hyperlipemia E78.5 ; Chronic tension-type headache, intractable G44.221 and OAB (overactive bladder) N32.81 [facility] [address] [facility] [id number] [address] [place] [phone] Nov, [facility] [address] [facility] [id number] [address] [place] [id number] Oct, [facility] [address] [facility] [id number] [address] [place] [id number] Oct, [address] [id number] [facility] [id number] Oct, [facility] [address] [facility] [id number] [address] [place] [phone] Sep, [facility] [address] [facility] [id number] [address] [place] [phone] Aug, [facility] [address] [facility] [id number] [address] [place] [phone] Aug, [facility] [address] [facility] [id number] [address] [place] [phone] Aug, Degenerative disc disease, l umbar M51.36 [facility] [address] [facility] [id number] [address] [place] [id number] Aug, Degenerative disc disease, l umbar M51.36 ; Fibromyalgia M79.7 ; Migraines G43.909 ; Hyperlipemia E78.5 ; Muscle spasms of both lower extremities M62.838 ; Chronic tension-type headache, intractable G44.221 ; HTN (hypertension) I10 and Restless leg syndrome G25.81 [facility] [address] [facility] [id number] [address] [place] [id number] Jul, [facility] [address] [facility] [id number] [address] [place] [phone] Jul, [facility] [address] [facility] [id number] [address] [place] [phone] Jul, [facility] [address] [place] [id number] [address] [place] [id number] Jun, Chronic tension-type headach e, intractable G44.221 ; Muscle spasms of both lower extremities M62.838 ; Fibromyalgia M79.7 ; Degenerative disc disease, lumbar M51.36 ; Restless leg syndrome G25.81 ; Migraines G43.909 ; Hyperlipemia E78.5 and Anxiety F41.9 [facility] [address] [id number] [address] [place] [phone] Jun, [facility] [address] [id number] [address] [place] [phone] Jun, [facility] [address] [id number] [address] [place] [phone] Jun, [facility] [address] [facility] [id number] [address] [place] [phone] Jun, [facility] [address] [facility] [id number] [address] [place] [phone] May, Sebaceous cyst L72.3 [facility] [address] [id number] [address] [place] [phone] May, Low back pain M54.5 [facility] [address] [facility] [id number] [address] [place] [phone] Apr, [place] [id number] [facility] [id number] [address] [place] [phone] Apr, Fibromyalgia M79.7 [facility] [address] [facility] [id number] [address] [place] [id number] Apr, Degenerative disc disease, l umbar M51.36 ; Fibromyalgia M79.7 ; Migraines G43.909 ; Hyperlipemia E78.5 ; Restless leg syndrome G25.81 ; Other intractable trigeminal autonomic cephalgia (TAC) G44.091 ; Secondary hypertension I15.9 and Anxiety F41.9 [facility] [address] [facility] [id number] [address] [place] [phone] March, 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 and HTN (hypertension) I10 [facility] [address] [facility] [id number] [address] [place] [id number] March, Fibromyalgia M79.7 [facility] [address] [facility] [id number] [address] [place] [id number] Feb, [facility] [address] [facility] [id number] [address] [place] [phone] Feb, [facility] [address] [facility] [id number] [address] [place] [id number] Feb, [facility] [address] [facility] [id number] [address] [place] [phone] Feb, Hyperlipemia E78.5 [facility] [address] [facility] [id number] [address] [place] [phone] Feb, Migraines G43.909 ; Fibromya lgia M79.7 ; Degenerative disc disease, lumbar M51.36 ; Restless leg syndrome G25.81 ; HTN (hypertension) I10 and Tobacco abuse counseling Z71.6 [facility] [address] [facility] [id number] [address] [place] [phone] Feb, [facility] [address] [facility] [id number] [address] [place] [phone] Jan, [facility] [address] [facility] [id number] [address] [place] [phone] Jan, [facility] [address] [facility] [id number] [address] [place] [phone] Dec, [facility] [address] [facility] [id number] [address] [place] [id number] Dec, Degenerative disc disease, l umbar M51.36 ; Restless leg syndrome G25.81 ; Migraines G43.909 ; HTN (hypertension) I10 ; Fibromyalgia M79.7 and 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 [facility] [address] [id number] [address] [place] [phone] Dec, [facility] [address] [id number] [address] [place] [phone] Nov, [facility] [address] [id number] [address] [place] [phone] Nov, [facility] [address] [facility] [id number] [address] [place] [phone] Oct, [facility] [address] [id number] [address] [place] [id number] Oct, [facility] [address] [facility] [id number] [address] [place] [phone] Oct, [facility] [address] [facility] [id number] [address] [place] [id number] Sep, [facility] [address] [facility] [id number] [address] [place] [phone] Sep, Routine gynecological examin ation V72.31 ; Degenerative disc disease, lumbar M51.36 ; Fibromyalgia M79.7 ; Restless leg syndrome G25.81 ; Migraines G43.909 and Well woman exam Z01.419 [facility] [address] [facility] [id number] [address] [place] [phone] Sep, [facility] [address] [facility] [id number] [address] [place] [id number] Aug, [facility] [address] [facility] [id number] [address] [place] [id number] Aug, Migraines G43.909 ; Degenera tive disc disease, lumbar M51.36 ; Fibromyalgia M79.7 ; Restless leg syndrome G25.81 and HTN (hypertension) I10 [facility] [address] [facility] [id number] [address] [place] [id number] Aug, [facility] [address] [facility] [id number] [address] [place] [phone] Aug, [facility] [address] [facility] [id number] [address] [place] [phone] Jul, [facility] [address] [facility] [id number] [address] [place] [phone] Jul, [facility] [address] [facility] [id number] [address] [place] [phone] Jun, Fibromyalgia 729.1 ; Lumbago 724.2 ; Restless leg syndrome 333.94 ; Migraines 346.90 and Elevated blood pressure (not hypertension) 796.2 [facility] [address] [id number] [address] [place] [id number] May, Fibromyalgia 729.1 ; Nontoxi c uninodular goiter 241.0 ; Lumbago 724.2 ; Restless leg syndrome 333.94 and Migraines 346.90 [facility] [address] [facility] [id number] [address] [place] [phone] Feb, [facility] [address] [facility] [id number] [address] [place] [phone] Feb, [facility] [address] [facility] [id number] [address] [place] [phone] Jan, [facility] [address] [facility] [id number] [address] [place] [phone] Jan, [facility] [address] [facility] [id number] [address] [place] [phone] Jan, [facility] [address] [id number] [address] [place] [phone] Jan, [facility] [address] [facility] [id number] [address] [place] [id number] Jan, [facility] [address] [facility] [id number] [address] [place] [phone] Jan, [facility] [address] [facility] [id number] [address] [place] [phone] Jan, [facility] [address] [id number] [address] [place] [phone] Jan, [facility] [address] [id number] [address] [place] [phone] Dec, [facility] [address] [facility] [id number] [address] [place] [phone] Dec, [facility] [address] [id number] [address] [place] [phone] Dec, [facility] [address] [id number] [address] [place] [phone] Dec, [facility] [address] [id number] [address] [place] [phone] Dec, [facility] [address] [facility] [id number] [address] [place] [phone] Dec, [facility] [address] [id number] [address] [place] [phone] Dec, [facility] [address] [facility] [id number] [address] [place] [id number] Dec, [facility] [address] [id number] [address] [place] [phone] Dec, [facility] [address] [facility] [id number] [address] [place] [phone] Dec, [facility] [address] [id number] [address] [place] [phone] Dec, [facility] [address] [facility] [id number] [address] [place] [phone] Nov, [facility] [address] [facility] [place] [id number] [address] [place] [phone] Nov, IMMUNIZATIONS No Known Immunizations SOCIAL HISTORY Never Assessed REASON FOR VISIT Repository Medication PLAN OF CARE VITAL SIGNS MEDICATIONS Unknown Medications RESULTS No Results PROCEDURES No Known procedures INSTRUCTIONS MEDICATIONS ADMINISTERED No Known Medications MEDICAL (GENERAL) HISTORY Type Description Date Medical History fibromyalgia Medical History degenerative disk disease Medical History degenerative arthritis Medical History Diabetes Type 2 Surgical History parital hysterectomy 1986 Surgical History several lymph nodes removed- neck Surgical History tonsillectomy Surgical History tubal ligation Hospitalization History surgery Hospitalization History childbirth Hospitalization History [facility]
--- OUTSIDE RECORDS SUMMARY | 2020-02-04 14:57 | XMS REPORT ---
Author Author Caitie MADRID Organization [facility] Address [address] [place] [address] Care Team Providers Care Sql Server Dba Developer Name Role Phone DELILAH MADRID Unavailable PROBLEMS Type Condition ICD9-CM Code MRZ76-DC Code Onset Dates Condition S tatus SNOMED Code Problem Muscle spasms of both lower extremities M62.838 Active 043032658 Problem Chronic pain disorder G89.4 Active 945938606 Problem OAB (overactive bladder) N32.81 Activ e 784635108 Problem Angina at rest I20.8 Active 69798 8000 Problem Overweight (BMI 25.0-29.9) E66.3 Act ramana 478567741 Problem Type 2 diabetes mellitus wit h hyperglycemia, without long-term current use of insulin E11.65 Active 21881927 Problem Chronic, continuous use of opioids F11.90 Active 311477125 Problem Chronic tension-type headache, intractable G44.221 Active 697274670 Problem Type 2 diabetes mellitus wit h diabetic polyneuropathy, without long-term current use of insulin E11.42 Active 09884 006 Problem Vitamin D deficiency E55.9 Active 65992407 Problem Restless leg syndrome G25.81 Active 02919742 Problem HTN (hypertension) I10 Active 3 1047411 Problem Migraines G43.909 Active 80966613 Problem Degenerative disc disease, lumbar M51.36 Active 66105896 Problem Hyperlipemia E78.5 Active 5831713 4 Problem Fibromyalgia M79.7 Active 5534140 7 Problem Anxiety F41.9 Active 40086347 ALLERGIES Substance Reaction Event Type Date Status Amoxicillin hives Drug Allergy Sep, Active tape rash Non Drug Allergy Sep, Active ENCOUNTERS Encounter Location Date Diagnosis [facility] [address] [facility] [id number] [address] [place] [phone] Oct, [facility] [address] [facility] [id number] [address] [place] [phone] Oct, [facility] [address] [facility] [id number] [address] [place] [phone] 08 Sep, 2018 Fibromyalgia M79.7 ; Degener ative disc disease, lumbar M51.36 and Restless leg syndrome G25.81 [facility] [address] [facility] [id number] [address] [place] [phone] Sep, Fibromyalgia M79.7 [facility] [address] [facility] [id number] [address] [place] [phone] Sep, [facility] [address] [facility] [id number] [address] [place] [phone] Aug, [facility] [address] [place] [id number] [address] [place] [phone] 10 Aug, 2018 Chronic pain disorder G89.4 [facility] [address] [place] [id number] [address] [place] [phone] 14 Jul, 2018 HTN (hypertension) I10 ; Typ e 2 diabetes mellitus with hyperglycemia, without long-term current use of insulin E11.65 ; Overweight (BMI 25.0-29.9) E66.3 ; Fibromyalgia M79.7 ; Restless leg syndrome G25.81 ; Chronic pain disorder G89.4 ; Hyperlipemia E78.5 and Angina at rest I20.8 [facility] [address] [place] [id number] [address] [place] [phone] Jul, [facility] [address] [facility] [id number] [address] [place] [phone] Jul, Restless leg syndrome G25.81 [facility] [address] [facility] [id number] [address] [place] [phone] Jun, Fibromyalgia M79.7 [facility] [address] [facility] [id number] [address] [place] [phone] 16 Jun, 2018 Chronic pain disorder G89.4 [facility] [address] [place] [id number] [address] [place] [phone] Jun, [place] [address] [facility] [id number] [address] [place] [phone] May, [place] [address] [facility] [id number] [address] [place] [phone] May, Vitamin D deficiency E55.9 [place] [address] [facility] [id number] [address] [place] [id number] May, Vitamin D deficiency E55.[id number] [place] [phone] May, Chronic pain disorder G89.4 [place] [address] [facility] [id number] [address] [place] [phone] May, Chronic pain disorder G89.4 [place] [address] [facility] [id number] [address] [place] [phone] Apr, Chronic pain disorder G89.4 [place] [address] [facility] [id number] [address] [place] [phone] Apr, Type 2 diabetes mellitus wit h diabetic polyneuropathy, without long-term current use of insulin E11.42 ; HTN (hypertension) I10 ; Hyperlipemia E78.5 ; Fibromyalgia M79.7 ; Degenerative disc disease, lumbar M51.36 ; Chronic pain disorder G89.4 ; Chronic, continuous use of opioids F11.90 ; Vitamin D deficiency E55.9 ; Anxiety F41.9 ; Chronic tension-type headache, intractable G44.221 and Overweight (BMI 25.0-29.9) E66.3 [place] [address] [facility] [id number] [address] [place] [phone] March, Chronic pain disorder G89.4 [place] [address] [facility] [id number] [address] [place] [phone] March, Type 2 diabetes mellitus wit h diabetic polyneuropathy, without long-term current use of insulin E11.42 [place] [address] [facility] [id number] [address] [place] [phone] Feb, Chronic pain disorder G89.4 [facility] [address] [facility] [id number] [address] [place] [phone] Jan, [facility] [address] [place] [id number] [address] [place] [phone] Jan, Pharyngitis, unspecified vashti ology J02.9 ; Fibromyalgia M79.7 and Chronic pain disorder G89.4 [facility] [address] [place] [id number] [address] [place] [phone] Jan, [facility] [address] [facility] [id number] [address] [place] [phone] Jan, [place] [address] [place] [id number] [place] [phone] Jan, [place] [address] [place] [id number] [address] [place] [phone] Jan, Type 2 diabetes mellitus wit h diabetic polyneuropathy, without long-term current use of insulin E11.42 ; Type 2 diabetes mellitus with hyperglycemia, without long-term current use of insulin E11.65 ; Degenerative disc disease, lumbar M51.36 ; Fibromyalgia M79.7 ; Restless leg syndrome G25.81 ; HTN (hypertension) I10 ; Hyperlipemia E78.5 ; Anxiety F41.9 ; Migraines G43.909 and High risk medication use Z79.899 [place] [address] [place] [id number] [address] [place] [phone] Dec, Chronic pain disorder G89.4 [facility] [address] [facility] [id number] [address] [place] [phone] Nov, Chronic pain disorder G89.4 [place] [address] [place] [id number] [address] [place] [phone] Nov, [place] [address] [facility] [id number] [address] [place] [phone] Nov, Type 2 diabetes mellitus wit h hyperglycemia, without long-term current use of insulin E11.65 ; HTN (hypertension) I10 ; Hyperlipemia E78.5 ; Restless leg syndrome G25.81 ; Fibromyalgia M79.7 ; Chronic tension-type headache, intractable G44.221 ; Migraines G43.909 ; Chronic pain disorder G89.4 and Overweight (BMI 25.0-29.9) E66.3 [place] [address] [address] Nov, [address] [address] Oct, Degenerative disc disease, l umbar M51.[address] [address] Sep, Degenerative disc disease, l umbar M51.36 [place] [address] [address] Sep, [address] [address] Aug, Degenerative disc disease, l umbar M51.36 [place] [address] [address] Aug, Fall from height of greater than 3 feet W19.XXXA ; Hematoma of left hip, subsequent encounter S70.02XD ; Fibromyalgia M79.7 ; Muscle spasms of both lower extremities M62.838 ; Anxiety F41.9 ; Degenerative disc disease, lumbar M51.36 ; Chronic pain disorder G89.4 and Chronic, continuous use of opioids F11.90 [place] [address] [place] [id number] [address] [place] [phone] Jul, [address] [address] Jul, Degenerative disc disease, l umbar M51.36 [place] [address] [place] [id number] [place] [address] Jun, Degenerative disc disease, l umbar M51.36 [place] [address] [place] [address] May, Degenerative disc disease, l umbar M51.36 [facility] [address] [id number] [address] [place] [phone] May, [facility] [address] [id number] [address] [place] [phone] Apr, Degenerative disc disease, l umbar M51.36 [facility] [address] [id number] [address] [place] [phone] Apr, Degenerative disc disease, l umbar M51.36 [facility] [address] [id number] [address] [place] [phone] March, Degenerative disc disease, l umbar M51.36 and Fall (on) (from) other stairs and steps, initial encounter W10.8XXA [facility] [address] [id number] [address] [place] [phone] March, [facility] [address] [id number] [address] [place] [phone] March, [facility] [address] [id number] [address] [place] [phone] March, [facility] [address] [id number] [address] [place] [phone] March, [facility] [address] [id number] [address] [place] [phone] Feb, [facility] [address] [id number] [address] [place] [phone] Jan, Fibromyalgia M79.7 [facility] [address] [id number] [address] [place] [phone] Jan, [facility] [address] [id number] [address] [place] [id number] Dec, Degenerative disc disease, l umbar M51.36 [facility] [address] [id number] [address] [place] [phone] Dec, [facility] [address] [facility] [id number] [address] [place] [phone] Nov, Degenerative disc disease, l umbar M51.36 ; Fibromyalgia M79.7 ; Restless leg syndrome G25.81 ; HTN (hypertension) I10 ; Hyperlipemia E78.5 ; Chronic tension-type headache, intractable G44.221 and OAB (overactive bladder) N32.81 [facility] [address] [facility] [id number] [address] [place] [phone] Nov, [facility] [address] [place] [id number] [address] [place] [phone] Oct, [facility] [address] [facility] [id number] [address] [place] [phone] Oct, [id number] [place] [id number] Oct, [facility] [address] [facility] [id number] [address] [place] [phone] Sep, [facility] [address] [place] [id number] [address] [place] [phone] Aug, [facility] [address] [facility] [id number] [address] [place] [phone] Aug, [facility] [address] [facility] [id number] [address] [place] [phone] Aug, Degenerative disc disease, l umbar M51.36 [facility] [address] [facility] [id number] [address] [place] [phone] Aug, Degenerative disc disease, l umbar M51.36 ; Fibromyalgia M79.7 ; Migraines G43.909 ; Hyperlipemia E78.5 ; Muscle spasms of both lower extremities M62.838 ; Chronic tension-type headache, intractable G44.221 ; HTN (hypertension) I10 and Restless leg syndrome G25.81 [facility] [address] [place] [id number] [address] [place] [phone] 29 Jul, 2016 [facility] [address] [id number] [address] [place] [phone] Jul, [facility] [address] [facility] [id number] [address] [place] [id number] Jul, [facility] [address] [facility] [id number] [address] [place] [phone] Jun, Chronic tension-type headach e, intractable G44.221 ; Muscle spasms of both lower extremities M62.838 ; Fibromyalgia M79.7 ; Degenerative disc disease, lumbar M51.36 ; Restless leg syndrome G25.81 ; Migraines G43.909 ; Hyperlipemia E78.5 and Anxiety F41.9 [facility] [address] [facility] [id number] [address] [place] [phone] Jun, [facility] [address] [facility] [id number] [address] [place] [phone] Jun, [facility] [address] [facility] [id number] [address] [place] [phone] Jun, [facility] [address] [facility] [id number] [address] [place] [phone] Jun, [facility] [address] [facility] [id number] [address] [place] [phone] May, Sebaceous cyst L72.3 [facility] [address] [facility] [id number] [address] [place] [phone] May, Low back pain M54.5 [facility] [address] [id number] [address] [place] [phone] Apr, [facility] [address] [facility] [id number] [address] [place] [phone] Apr, Fibromyalgia M79.7 [facility] [address] 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 [id number] [address] [place] [phone] March, Fibromyalgia M79.7 [facility] [address] [facility] [id number] [address] [place] [phone] Feb, [facility] [address] [facility] [id number] [address] [place] [phone] Feb, [facility] [address] [place] [id number] [address] [place] [phone] Feb, [facility] [address] [facility] [id number] [address] [place] [phone] Feb, Hyperlipemia E78.5 [facility] [address] [facility] [id number] [address] [place] [phone] Feb, Migraines G43.909 ; Fibromya lgia M79.7 ; Degenerative disc disease, lumbar M51.36 ; Restless leg syndrome G25.81 ; HTN (hypertension) I10 and Tobacco abuse counseling Z71.6 [facility] [address] [facility] [id number] [address] [place] [phone] Feb, [facility] [address] [facility] [id number] [address] [place] [phone] Jan, [facility] [address] [facility] [id number] [address] [place] [phone] Jan, [facility] [address] [facility] [id number] [address] [place] [phone] Dec, [facility] [address] [id number] [address] [place] [phone] Dec, Degenerative disc disease, l umbar M51.36 ; Restless leg syndrome G25.81 ; Migraines G43.909 ; HTN (hypertension) I10 ; Fibromyalgia M79.7 and Other fdc (current) drug therapy Z79.899 [facility] [address] [id number] [address] [place] [phone] Dec, [facility] [address] [id number] [address] [place] [phone] Nov, [facility] [address] [id number] [address] [place] [phone] Nov, [facility] [address] [facility] [id number] [address] [place] [phone] Oct, [facility] [address] [facility] [id number] [address] [place] [phone] Oct, [facility] [address] [facility] [id number] [address] [place] [phone] Oct, [facility] [address] [facility] [id number] [address] [place] [phone] Sep, [facility] [address] [facility] [id number] [address] [place] [phone] Sep, Routine gynecological examin ation V72.31 ; Degenerative disc disease, lumbar M51.36 ; Fibromyalgia M79.7 ; Restless leg syndrome G25.81 ; Migraines G43.909 and Well woman exam Z01.419 [facility] [address] [facility] [id number] [address] [place] [phone] Sep, [facility] [address] [facility] [id number] [address] [place] [phone] Aug, [facility] [address] [facility] [id number] [address] [place] [phone] Aug, Migraines G43.909 ; Degenera tive disc disease, lumbar M51.36 ; Fibromyalgia M79.7 ; Restless leg syndrome G25.81 and HTN (hypertension) I10 [facility] [address] [id number] Aug, [facility] [address] [address] Aug, [facility] [address] [phone] Jul, [facility] [address] [address] Jul, [facility] [address] [address] Jun, Fibromyalgia 729.1 ; Lumbago 724.2 ; Restless leg syndrome 333.94 ; Migraines 346.90 and Elevated blood pressure (not hypertension) 796.2 [facility] [address] [address] May, Fibromyalgia 729.1 ; Nontoxi c uninodular goiter 241.0 ; Lumbago 724.2 ; Restless leg syndrome 333.94 and Migraines 346.90 [facility] [address] [address] Feb, [facility] [address] [address] Feb, [facility] [address] [address] Jan, [facility] [address] [address] Jan, [facility] [address] [address] Jan, [facility] [address] [phone] Jan, [facility] [place] [facility] [address] [id number] [address] [place] [address], [place] [phone] 04 Jan, 2014 [facility] [place] [facility] [address] [id number] [address] [place] [address], [place] [address] Jan, 2014 [facility] [place] [facility] [address] [id number] [address] [place] [address], [place] [address] Jan, 2014 [facility] [place] [facility] [address] [id number] [address] [place] [address], [place] [address] Jan, 2014 [facility] [place] [facility] [address] [id number] [address] [place] [address], [place] [phone] Dec, 2014 [facility] [place] [facility] [address] [id number] [address] [place] [address], [place] [address] Dec, 2014 [facility] [place] [facility] [address] [id number] [address] [place] [address], [place] [address] Dec, 2014 [facility] [place] [facility] [address] [id number] [address] [place] [address], [place] [address] Dec, 2014 [facility] [place] [facility] [address] [id number] [address] [place] [address], [place] [address] Dec, 2014 [facility] [place] [facility] [address] [id number] [address] [place] [address], [place] [address] Dec, 2014 [facility] [place] [facility] [address] [id number] [address] [place] [address], [place] [address] Dec, 2014 [facility] [place] [facility] [address] [id number] [address] [place] [phone] Dec, 2014 [facility] [place] [facility] [address] [id number] [address] [place] [address], [place] [address] Dec, 2014 [facility] [place] [facility] [address] [id number] [address] [place] [address], [place] [address] Dec, 2014 [facility] [place] [facility] [address] [id number] [address] [place] [address], [place] [address] Dec, 2014 [facility] [place] [facility] [address] [id number] [address] [place] [phone] Nov, [facility] [address] [facility] [id number] [address] [place] [phone] Nov, IMMUNIZATIONS No Known Immunizations SOCIAL HISTORY Never Assessed REASON FOR VISIT New provider visit David Cortes MA PLAN OF CARE Activity Details Follow Up 3 months or as indicated by lab . Reason:Pain VITAL SIGNS Height 63 in 2018-10-02 Weight 161.7 lbs 2018-10-02 Temperature 97.4 degrees Fahrenheit 2018-10-02 Heart Rate 98 bpm 2018-10-02 Respiratory Rate 20 2018-10-02 Oximetry 92 % 2018-10-02 BMI 28.64 kg/m2 2018-10-02 Blood pressure systolic 128 mmHg 2018-10-02 Blood pressure diastolic 72 mmHg 2018-10-02 MEDICATIONS Medication Instructions Dosage Frequency Start Date End Date Duration S chago Hydrocodone-Acetaminophen 10-325 MG Orally every 6 hrs 1 tablet as needed 6h Sep, 28 days Active BuSpar 10 mg Orally 3 times a day 1 tablet 8h Apr, 90 days Active Glucocard Expression Test 1 subcutaneously 2 times a day test 2 times per day 12h Nov, Active Propranolol HCl 10 mg Orally Twice a day 1 tablet 12h Apr, Active Requip 3 MG Orally once daily as needed 1 tablet Aug, Active Crestor 10 MG Orally Once a day 4 tablets 24h 27 Jan, 2018 Active Gabapentin 400 mg Orally 3 times a day 1 capsule 8h 28 days Active Meloxicam 15 mg Orally Once a day 1 tablet 24h Jan, Active Cyclobenzaprine HCl 10 mg Orally Three times a day 1 tablet as need ed 8h 10 Dec, 2016 Oct, Active MetFORMIN HCl ER 500 mg Orally twice a day 1 tabs twice daily 12h Nov, Active Lisinopril 10 mg Orally Once a day 1 tablet 24h Active RESULTS No Results PROCEDURES No Known [...] surgery Hospitalization History childbirth Hospitalization History [facility] for migraine
--- OUTSIDE RECORDS SUMMARY | 2020-02-04 14:57 | XMS REPORT ---
Author Author Caitie DANIELS Organization [facility] Address [address] [place] [address] Care Team Providers Care Loan Service Officer Name Role Phone REINIER DANIELS Unavailable PROBLEMS Type Condition ICD9-CM Code CYL46-XE Code Onset Dates Condition S tatus SNOMED Code Problem Muscle spasms of both lower extremities M62.838 Active 643203705 Problem Chronic pain disorder G89.4 Active 874954501 Problem OAB (overactive bladder) N32.81 Activ e 974576963 Problem Angina at rest I20.8 Active 80080 8000 Problem Overweight (BMI 25.0-29.9) E66.3 Act ramana 424356088 Problem Type 2 diabetes mellitus wit h hyperglycemia, without long-term current use of insulin E11.65 Active 90995392 Problem Chronic, continuous use of opioids F11.90 Active 515873873 Problem Chronic tension-type headache, intractable G44.221 Active 328077638 Problem Type 2 diabetes mellitus wit h diabetic polyneuropathy, without long-term current use of insulin E11.42 Active 41414 006 Problem Vitamin D deficiency E55.9 Active 33773888 Problem Restless leg syndrome G25.81 Active 48624932 Problem HTN (hypertension) I10 Active 3 5408391 Problem Migraines G43.909 Active 41728629 Problem Degenerative disc disease, lumbar M51.36 Active 52038513 Problem Hyperlipemia E78.5 Active 3268396 4 Problem Fibromyalgia M79.7 Active 3508249 7 Problem Anxiety F41.9 Active 91763198 ALLERGIES No Information ENCOUNTERS Encounter Location Date Diagnosis [facility] [address] [facility] [id number] [address] [place] [phone] Oct, [facility] [address] [facility] [id number] [address] [place] [phone] Oct, [facility] [address] [facility] [id number] [address] [place] [phone] 08 Sep, 2018 [facility] [address] [facility] [id number] [address] [place] [phone] Sep, Fibromyalgia M79.7 [facility] [address] [facility] [id number] [address] [place] [id number] 05 Sep, 2018 [facility] [address] [facility] [id number] [address] [place] [phone] Aug, [facility] [address] [facility] [id number] [address] [place] [phone] Aug, Chronic pain disorder G89.4 [facility] [address] [facility] [id number] [address] [place] [id number] 14 Jul, 2018 HTN (hypertension) I10 ; Typ e 2 diabetes mellitus with hyperglycemia, without long-term current use of insulin E11.65 ; Overweight (BMI 25.0-29.9) E66.3 ; Fibromyalgia M79.7 ; Restless leg syndrome G25.81 ; Chronic pain disorder G89.4 ; Hyperlipemia E78.5 and Angina at rest I20.8 [facility] [address] [facility] [id number] [address] [place] [phone] 13 Jul, 2018 [facility] [address] [facility] [id number] [address] [place] [phone] Jul, Restless leg syndrome G25.81 [facility] [address] [facility] [id number] [address] [place] [phone] Jun, Fibromyalgia M79.7 [facility] [address] [facility] [id number] [address] [place] [phone] Jun, Chronic pain disorder G89.4 [facility] [address] [facility] [id number] [address] [place] [phone] 15 Jun, 2018 [facility] [address] [facility] [id number] [address] [place] [phone] May, [facility] [address] [facility] [id number] [address] [place] [phone] May, Vitamin D deficiency E55.9 [facility] [address] [facility] [id number] [address] [place] [phone] May, Vitamin D deficiency E55.9 [facility] [place] [address] [address] [id number] [place] [phone] May, Chronic pain disorder G89.4 [place] [address] [facility] [id number] [address] [place] [phone] May, Chronic pain disorder G89.4 [place] [address] [facility] [id number] [address] [place] [address] Apr, Chronic pain disorder G89.4 [place] [address] [place] [id number] [address] [place] [address] Apr, Type 2 diabetes mellitus wit h diabetic polyneuropathy, without long-term current use of insulin E11.42 ; HTN (hypertension) I10 ; Hyperlipemia E78.5 ; Fibromyalgia M79.7 ; Degenerative disc disease, lumbar M51.36 ; Chronic pain disorder G89.4 ; Chronic, continuous use of opioids F11.90 ; Vitamin D deficiency E55.9 ; Anxiety F41.9 ; Chronic tension-type headache, intractable G44.221 and Overweight (BMI 25.0-29.9) E66.3 [place] [address] [facility] [id number] [address] [place] [phone] March, Chronic pain disorder G89.4 [place] [address] [facility] [id number] [address] [place] [address] March, Type 2 diabetes mellitus wit h diabetic polyneuropathy, without long-term current use of insulin E11.42 [place] [address] [facility] [id number] [address] [place] [address] Feb, Chronic pain disorder G89.4 [place] [address] [facility] [id number] [address] [place] [address] Jan, [place] [address] [place] [id number] [address] [place] [address] Jan, Pharyngitis, unspecified vashti ology J02.9 ; Fibromyalgia M79.7 and Chronic pain disorder G89.4 [place] [address] [phone] Jan, [place] [address] [address] Jan, [place] [address] [address] Jan, [place] [address] [address] Jan, Type 2 diabetes mellitus wit h diabetic polyneuropathy, without long-term current use of insulin E11.42 ; Type 2 diabetes mellitus with hyperglycemia, without long-term current use of insulin E11.65 ; Degenerative disc disease, lumbar M51.36 ; Fibromyalgia M79.7 ; Restless leg syndrome G25.81 ; HTN (hypertension) I10 ; Hyperlipemia E78.5 ; Anxiety F41.9 ; Migraines G43.909 and High risk medication use Z79.899 [place] [address] [address] Dec, Chronic pain disorder G89.4 [place] [address] [address] Nov, Chronic pain disorder G89.4 [place] [address] [place] [id number] [address] [place] [address] Nov, [place] [address] [place] [id number] [address] [place] [address] Nov, Type 2 diabetes mellitus wit h hyperglycemia, without long-term current use of insulin E11.65 ; HTN (hypertension) I10 ; Hyperlipemia E78.5 ; Restless leg syndrome G25.81 ; Fibromyalgia M79.7 ; Chronic tension-type headache, intractable G44.221 ; Migraines G43.909 ; Chronic pain disorder G89.4 and Overweight (BMI 25.0-29.9) E66.3 [facility] [address] [address] Nov, [facility] [address] [place] [id number] [place] [address] Oct, Degenerative disc disease, l umbar M51.36 [place] [address] [place] [id number] [place] [address] Sep, Degenerative disc disease, l umbar M51.36 [place] [address] [place] [id number] [place] [address] Sep, [place] [address] [place] [id number] [place] [address] Aug, Degenerative disc disease, l umbar M51.36 [place] [address] [address] Aug, Fall from height of greater than 3 feet W19.XXXA ; Hematoma of left hip, subsequent encounter S70.02XD ; Fibromyalgia M79.7 ; Muscle spasms of both lower extremities M62.838 ; Anxiety F41.9 ; Degenerative disc disease, lumbar M51.36 ; Chronic pain disorder G89.4 and Chronic, continuous use of opioids F11.90 [place] [address] [address] Jul, [place] [address] [address] Jul, Degenerative disc disease, l umbar M51.36 [place] [address] [place] [id number] [place] [address] Jun, Degenerative disc disease, l umbar M51.36 [place] [address] [place] [id number] [place] [address] May, Degenerative disc disease, l umbar M51.36 [place] [address] [place] [id number] [place] [address] [place] [address] May, [facility] [address] [id number] [address] [place] [id number] Apr, Degenerative disc disease, l umbar M51.36 [facility] [address] [id number] [address] [place] [address] Apr, Degenerative disc disease, l umbar M51.36 [facility] [address] [id number] [address] [place] [address] March, Degenerative disc disease, l umbar M51.36 and Fall (on) (from) other stairs and steps, initial encounter W10.8XXA [facility] [address] [id number] [address] [place] [id number] March, [facility] [address] [id number] [address] [place] [address] March, [facility] [address] [id number] [address] [place] [address] March, [facility] [address] [id number] [address] [place] [address] March, [facility] [address] [id number] [address] [place] [id number] Feb, [facility] [address] [id number] [address] [place] [phone] Jan, Fibromyalgia M79.7 [facility] [address] [id number] [address] [place] [phone] Jan, [facility] [address] [id number] [address] [place] [address] Dec, Degenerative disc disease, l umbar M51.36 [facility] [address] [id number] [address] [place] [id number] Dec, [facility] [address] [id number] [address] [place] [phone] Nov, Degenerative disc disease, l umbar M51.36 ; Fibromyalgia M79.7 ; Restless leg syndrome G25.81 ; HTN (hypertension) I10 ; Hyperlipemia E78.5 ; Chronic tension-type headache, intractable G44.221 and OAB (overactive bladder) N32.81 [facility] [address] [facility] [id number] [address] [place] [phone] Nov, [facility] [address] [facility] [id number] [address] [place] [phone] Oct, [facility] [address] [facility] [id number] [address] [place] [address] Oct, [address] [id number] [place] [id number] Oct, [facility] [address] [facility] [id number] [address] [place] [phone] Sep, [facility] [address] [facility] [id number] [address] [place] [address] Aug, [facility] [address] [facility] [id number] [address] [place] [id number] Aug, [facility] [address] [facility] [id number] [address] [place] [address] Aug, Degenerative disc disease, l umbar M51.36 [facility] [address] [facility] [id number] [address] [place] [address] Aug, Degenerative disc disease, l umbar M51.36 ; Fibromyalgia M79.7 ; Migraines G43.909 ; Hyperlipemia E78.5 ; Muscle spasms of both lower extremities M62.838 ; Chronic tension-type headache, intractable G44.221 ; HTN (hypertension) I10 and Restless leg syndrome G25.81 [facility] [address] [facility] [id number] [address] [place] [phone] Jul, [facility] [address] [place] [id number] [address] [place] [id number] Jul, [facility] [address] [id number] [address] [place] [id number] Jul, [facility] [address] [id number] [address] [place] [address] Jun, Chronic tension-type headach e, intractable G44.221 ; Muscle spasms of both lower extremities M62.838 ; Fibromyalgia M79.7 ; Degenerative disc disease, lumbar M51.36 ; Restless leg syndrome G25.81 ; Migraines G43.909 ; Hyperlipemia E78.5 and Anxiety F41.9 [facility] [address] [id number] [address] [place] [phone] Jun, [facility] [address] [id number] [address] [place] [phone] Jun, [facility] [address] [id number] [address] [place] [address] Jun, [facility] [address] [id number] [address] [place] [address] Jun, [facility] [address] [id number] [address] [place] [address] May, Sebaceous cyst L72.3 [facility] [address] [id number] [address] [place] [phone] May, Low back pain M54.5 [facility] [address] [id number] [address] [place] [phone] Apr, [facility] [address] [id number] [address] [place] [address] Apr, Fibromyalgia M79.7 [facility] [address] [facility] [id number] [address] [place] [address] Apr, Degenerative disc disease, l umbar M51.36 ; Fibromyalgia M79.7 ; Migraines G43.909 ; Hyperlipemia E78.5 ; Restless leg syndrome G25.81 ; Other intractable trigeminal autonomic cephalgia (TAC) G44.091 ; Secondary hypertension I15.9 and Anxiety F41.9 [facility] [address] [facility] [id number] [address] [place] [address] March, Other residential (current) dr aime therapy Z79.899 and HTN (hypertension) I10 [facility] [address] [facility] [id number] [address] [place] [address] March, Fibromyalgia M79.7 [facility] [address] [facility] [id number] [address] [place] [address] Feb, [facility] [address] [facility] [id number] [address] [place] [id number] Feb, [facility] [address] [place] [id number] [address] [place] [address] Feb, [facility] [address] [place] [id number] [address] [place] [phone] Feb, Hyperlipemia E78.5 [facility] [address] [facility] [id number] [address] [place] [address] Feb, Migraines G43.909 ; Fibromya lgia M79.7 ; Degenerative disc disease, lumbar M51.36 ; Restless leg syndrome G25.81 ; HTN (hypertension) I10 and Tobacco abuse counseling Z71.6 [facility] [address] [facility] [id number] [address] [place] [phone] Feb, [facility] [address] [facility] [id number] [address] [place] [address] Jan, [facility] [address] [facility] [id number] [address] [place] [address] Jan, [facility] [address] [facility] [id number] [address] [place] [phone] Dec, [facility] [address] [facility] [id number] [address] [place] [address] Dec, Degenerative disc disease, l umbar M51.36 ; Restless leg syndrome G25.81 ; Migraines G43.909 ; HTN (hypertension) I10 ; Fibromyalgia M79.7 and Other ocean transportation intermediary (current) drug therapy Z79.899 [facility] [address] [id number] [address] [place] [phone] Dec, [facility] [address] [facility] [id number] [address] [place] [phone] Nov, [facility] [address] [id number] [address] [place] [phone] Nov, [facility] [address] [id number] [address] [place] [phone] Oct, [facility] [address] [facility] [id number] [address] [place] [phone] Oct, [facility] [address] [facility] [id number] [address] [place] [phone] Oct, [facility] [address] [facility] [id number] [address] [place] [address] Sep, [facility] [address] [facility] [id number] [address] [place] [address] Sep, Routine gynecological examin ation V72.31 ; Degenerative disc disease, lumbar M51.36 ; Fibromyalgia M79.7 ; Restless leg syndrome G25.81 ; Migraines G43.909 and Well woman exam Z01.419 [facility] [address] [facility] [id number] [address] [place] [id number] Sep, [facility] [address] [facility] [id number] [address] [place] [phone] Aug, [facility] [address] [facility] [id number] [address] [place] [address] Aug, Migraines G43.909 ; Degenera tive disc disease, lumbar M51.36 ; Fibromyalgia M79.7 ; Restless leg syndrome G25.81 and HTN (hypertension) I10 [facility] [address] [facility] [id number] [address] [place] [phone] Aug, [facility] [address] [id number] [address] [place] [id number] Aug, [facility] [address] [facility] [id number] [address] [place] [phone] Jul, [facility] [address] [facility] [id number] [address] [place] [phone] Jul, [facility] [address] [facility] [id number] [address] [place] [phone] Jun, Fibromyalgia 729.1 ; Lumbago 724.2 ; Restless leg syndrome 333.94 ; Migraines 346.90 and Elevated blood pressure (not hypertension) 796.2 [facility] [address] [facility] [id number] [address] [place] [address] May, Fibromyalgia 729.1 ; Nontoxi c uninodular goiter 241.0 ; Lumbago 724.2 ; Restless leg syndrome 333.94 and Migraines 346.90 [facility] [address] [facility] [id number] [address] [place] [phone] Feb, [facility] [address] [facility] [id number] [address] [place] [phone] Feb, [facility] [address] [facility] [id number] [address] [place] [phone] Jan, [facility] [address] [id number] [address] [place] [phone] Jan, [facility] [address] [id number] [address] [place] [phone] Jan, [facility] [address] [id number] [address] [place] [phone] Jan, [facility] [address] [facility] [id number] [address] [place] [phone] Jan, [facility] [address] [facility] [id number] [address] [place] [phone] Jan, [facility] [address] [id number] [address] [place] [address], [place] [address] Jan, [facility] [address] [id number] [address] [place] [address], [place] [address] Jan, [facility] [address] [id number] [address] [place] [address], [place] [address] Dec, 2014 [facility] [address] [id number] [address] [place] [address], [place] [address] Dec, 2014 [facility] [address] [id number] [address] [place] [address], [place] [address] Dec, 2014 [facility] [address] [id number] [address] [place] [address], [place] [address] Dec, 2014 [facility] [address] [id number] [address] [place] [address], [place] [address] Dec, 2014 [facility] [address] [id number] [address] [place] [address], [place] [address] Dec, 2014 [facility] [address] [id number] [address] [place] [address], [place] [address] Dec, 2014 [facility] [address] [id number] [address] [place] [address], [place] [address] Dec, [facility] [address] [id number] [address] [place] [address], [place] [address] Dec, [facility] [address] [id number] [address] [place] [address], [place] [address] Dec, [facility] [address] [id number] [address] [place] [address], [place] [address] Dec, [facility] [address] [id number] [address] [place] [address], [place] [address] Nov, [facility] [address] [id number] [address] [place] [address], [place] [address] Nov, IMMUNIZATIONS No Known Immunizations SOCIAL HISTORY Never Assessed REASON FOR VISIT Requests return call PLAN OF CARE VITAL SIGNS MEDICATIONS Medication Instructions Dosage Frequency Start Date End Date Duration S chago Gabapentin 400 mg Orally 3 times a day 1 capsule 8h Active RESULTS No Results PROCEDURES No Known [...]
--- OUTSIDE RECORDS SUMMARY | 2020-02-04 14:57 | XMS REPORT ---
Author Author Caitie MADRID Organization [facility] Address [address] [place] [address] Care Team Providers Care Media Production Operator Name Role Phone TRACEY MADRIDTA Unavailable PROBLEMS Type Condition ICD9-CM Code PDF06-TB Code Onset Dates Condition S tatus SNOMED Code Problem Muscle spasms of both lower extremities M62.838 Active 051408838 Problem Chronic pain disorder G89.4 Active 948505077 Problem OAB (overactive bladder) N32.81 Activ e 641572259 Problem Angina at rest I20.8 Active 95229 8000 Problem Overweight (BMI 25.0-29.9) E66.3 Act ramana 911026756 Problem Type 2 diabetes mellitus wit h hyperglycemia, without long-term current use of insulin E11.65 Active 01529144 Problem Chronic, continuous use of opioids F11.90 Active 545796129 Problem Chronic tension-type headache, intractable G44.221 Active 392697204 Problem Type 2 diabetes mellitus wit h diabetic polyneuropathy, without long-term current use of insulin E11.42 Active 90736 006 Problem Vitamin D deficiency E55.9 Active 17567001 Problem Restless leg syndrome G25.81 Active 39904698 Problem HTN (hypertension) I10 Active 3 5905335 Problem Migraines G43.909 Active 75221836 Problem Degenerative disc disease, lumbar M51.36 Active 36701207 Problem Hyperlipemia E78.5 Active 6355308 4 Problem Fibromyalgia M79.7 Active 5315176 7 Problem Anxiety F41.9 Active 40600981 ALLERGIES No Information ENCOUNTERS Encounter Location Date Diagnosis [facility] [address] [facility] [id number] [address] [place] [phone] Oct, [facility] [address] [facility] [id number] [address] [place] [phone] Oct, [facility] [address] [facility] [id number] [address] [place] [phone] Oct, Degenerative disc disease, l umbar M51.36 [facility] [address] [place] [id number] [address] [place] [id number] 08 Sep, 2018 Fibromyalgia M79.7 ; Degener ative disc disease, lumbar M51.36 and Restless leg syndrome G25.81 [facility] [address] [place] [id number] [address] [place] [phone] Sep, Fibromyalgia M79.7 [facility] [address] [facility] [id number] [address] [place] [address] Sep, [place] [address] [place] [id number] [place] [phone] Aug, [place] [address] [place] [id number] [place] [phone] 10 Aug, 2018 Chronic pain disorder G89.4 [place] [address] [place] [id number] [place] [phone] 14 Jul, 2018 HTN (hypertension) I10 ; Typ e 2 diabetes mellitus with hyperglycemia, without long-term current use of insulin E11.65 ; Overweight (BMI 25.0-29.9) E66.3 ; Fibromyalgia M79.7 ; Restless leg syndrome G25.81 ; Chronic pain disorder G89.4 ; Hyperlipemia E78.5 and Angina at rest I20.8 [place] [address] [place] [id number] [address] [place] [id number] 13 Jul, 2018 [facility] [address] [place] [id number] [address] [place] [phone] 11 Jul, 2018 Restless leg syndrome G25.81 [place] [address] [place] [id number] [address] [place] [phone] Jun, Fibromyalgia M79.7 [place] [address] [place] [id number] [address] [place] [phone] 16 Jun, 2018 Chronic pain disorder G89.4 [place] [address] [place] [id number] [address] [place] [phone] Jun, [facility] [address] [facility] [id number] [address] [place] [phone] May, [facility] [address] [facility] [id number] [address] [place] [phone] May, Vitamin D deficiency E55.9 [place] [address] [facility] [id number] [address] [place] [address] May, Vitamin D deficiency E55.9 [id number] [place] [phone] May, Chronic pain disorder G89.4 [place] [address] [place] [id number] [address] [place] [phone] May, Chronic pain disorder G89.4 [place] [address] [place] [id number] [address] [place] [phone] Apr, Chronic pain disorder G89.4 [place] [address] [facility] [id number] [address] [place] [address] Apr, Type 2 diabetes mellitus wit h diabetic polyneuropathy, without long-term current use of insulin E11.42 ; HTN (hypertension) I10 ; Hyperlipemia E78.5 ; Fibromyalgia M79.7 ; Degenerative disc disease, lumbar M51.36 ; Chronic pain disorder G89.4 ; Chronic, continuous use of opioids F11.90 ; Vitamin D deficiency E55.9 ; Anxiety F41.9 ; Chronic tension-type headache, intractable G44.221 and Overweight (BMI 25.0-29.9) E66.3 [place] [address] [facility] [id number] [address] [place] [phone] March, Chronic pain disorder G89.4 [place] [address] [place] [id number] [address] [place] [phone] March, Type 2 diabetes mellitus wit h diabetic polyneuropathy, without long-term current use of insulin E11.42 [place] [address] [place] [id number] [address] [place] [phone] Feb, Chronic pain disorder G89.4 [facility] [address] [facility] [id number] [address] [place] [phone] Jan, [facility] [address] [facility] [id number] [address] [place] [phone] Jan, Pharyngitis, unspecified vashti ology J02.9 ; Fibromyalgia M79.7 and Chronic pain disorder G89.4 [facility] [address] [facility] [id number] [address] [place] [phone] Jan, [facility] [address] [facility] [id number] [address] [place] [phone] Jan, [facility] [address] [place] [id number] [address] [place] [phone] Jan, [facility] [address] [place] [id number] [address] [place] [address] Jan, Type 2 diabetes mellitus wit h diabetic polyneuropathy, without long-term current use of insulin E11.42 ; Type 2 diabetes mellitus with hyperglycemia, without long-term current use of insulin E11.65 ; Degenerative disc disease, lumbar M51.36 ; Fibromyalgia M79.7 ; Restless leg syndrome G25.81 ; HTN (hypertension) I10 ; Hyperlipemia E78.5 ; Anxiety F41.9 ; Migraines G43.909 and High risk medication use Z79.899 [facility] [address] [place] [id number] [address] [place] [phone] Dec, Chronic pain disorder G89.4 [facility] [address] [facility] [id number] [address] [place] [phone] Nov, Chronic pain disorder G89.4 [facility] [address] [facility] [id number] [address] [place] [phone] Nov, [facility] [address] [place] [id number] [address] [place] [address] Nov, Type 2 diabetes mellitus wit h hyperglycemia, without long-term current use of insulin E11.65 ; HTN (hypertension) I10 ; Hyperlipemia E78.5 ; Restless leg syndrome G25.81 ; Fibromyalgia M79.7 ; Chronic tension-type headache, intractable G44.221 ; Migraines G43.909 ; Chronic pain disorder G89.4 and Overweight (BMI 25.0-29.9) E66.[address] [phone] Nov, [address] [address] Oct, Degenerative disc disease, l umbar M51.[address] [address] Sep, Degenerative disc disease, l umbar M51.[address] [address] Sep, [address] [address] Aug, Degenerative disc disease, l umbar M51.[address] [address] Aug, Fall from height of greater than 3 feet W19.XXXA ; Hematoma of left hip, subsequent encounter S70.02XD ; Fibromyalgia M79.7 ; Muscle spasms of both lower extremities M62.838 ; Anxiety F41.9 ; Degenerative disc disease, lumbar M51.36 ; Chronic pain disorder G89.4 and Chronic, continuous use of opioids F11.[address] [address] Jul, [address] [address] Jul, Degenerative disc disease, l umbar M51.[address] [address] Jun, Degenerative disc disease, l umbar M51.36 [facility] [address] [id number] [address] [place] [address], [place] [address] May, Degenerative disc disease, l umbar M51.36 [facility] [address] [id number] [address] [place] [address], [place] [address] May, [facility] [address] [id number] [address] [place] [address] Apr, Degenerative disc disease, l umbar M51.36 [facility] [address] [id number] [address] [place] [address] Apr, Degenerative disc disease, l umbar M51.36 [facility] [address] [id number] [address] [place] [id number] March, Degenerative disc disease, l umbar M51.36 and Fall (on) (from) other stairs and steps, initial encounter W10.8XXA [facility] [address] [id number] [address] [place] [phone] March, [facility] [address] [id number] [address] [place] [phone] March, [facility] [address] [id number] [address] [place] [phone] March, [facility] [address] [id number] [address] [place] [phone] March, [facility] [address] [id number] [address] [place] [phone] Feb, [facility] [address] [id number] [address] [place] [phone] Jan, Fibromyalgia M79.7 [facility] [address] [id number] [address] [place] [phone] Jan, [facility] [address] [facility] [id number] [address] [place] [address] Dec, Degenerative disc disease, l umbar M51.36 [facility] [address] [facility] [id number] [address] [place] [phone] Dec, [facility] [address] [facility] [id number] [address] [place] [address] Nov, Degenerative disc disease, l umbar M51.36 ; Fibromyalgia M79.7 ; Restless leg syndrome G25.81 ; HTN (hypertension) I10 ; Hyperlipemia E78.5 ; Chronic tension-type headache, intractable G44.221 and OAB (overactive bladder) N32.81 [facility] [address] [facility] [id number] [address] [place] [phone] Nov, [facility] [address] [facility] [id number] [address] [place] [phone] Oct, [facility] [address] [facility] [id number] [address] [place] [phone] Oct, [id number] [place] [id number] Oct, [facility] [address] [facility] [id number] [address] [place] [phone] Sep, [facility] [address] [facility] [id number] [address] [place] [phone] Aug, [facility] [address] [facility] [id number] [address] [place] [phone] Aug, [facility] [address] [facility] [id number] [address] [place] [address] Aug, Degenerative disc disease, l umbar M51.36 [facility] [address] [facility] [id number] [address] [place] [address] Aug, Degenerative disc disease, l umbar M51.36 ; Fibromyalgia M79.7 ; Migraines G43.909 ; Hyperlipemia E78.5 ; Muscle spasms of both lower extremities M62.838 ; Chronic tension-type headache, intractable G44.221 ; HTN (hypertension) I10 and Restless leg syndrome G25.81 [facility] [address] [id number] [address] [place] [phone] 29 Jul, 2016 [facility] [address] [id number] [address] [place] [phone] 15 Jul, 2016 [facility] [address] [id number] [address] [place] [id number] Jul, [facility] [address] [id number] [address] [place] [address] Jun, Chronic tension-type headach e, intractable G44.221 ; Muscle spasms of both lower extremities M62.838 ; Fibromyalgia M79.7 ; Degenerative disc disease, lumbar M51.36 ; Restless leg syndrome G25.81 ; Migraines G43.909 ; Hyperlipemia E78.5 and Anxiety F41.9 [facility] [address] [id number] [address] [place] [address] Jun, [facility] [address] [id number] [address] [place] [phone] Jun, [facility] [address] [id number] [address] [place] [phone] Jun, [facility] [address] [id number] [address] [place] [phone] Jun, [facility] [address] [id number] [address] [place] [address] May, Sebaceous cyst L72.3 [facility] [address] [id number] [address] [place] [address] May, Low back pain M54.5 [facility] [address] [id number] [address] [place] [address] Apr, [facility] [address] [id number] [address] [place] [phone] Apr, Fibromyalgia M79.7 [facility] [address] [id number] [address] [place] [id number] Apr, Degenerative disc disease, l umbar M51.36 ; Fibromyalgia M79.7 ; Migraines G43.909 ; Hyperlipemia E78.5 ; Restless leg syndrome G25.81 ; Other intractable trigeminal autonomic cephalgia (TAC) G44.091 ; Secondary hypertension I15.9 and Anxiety F41.9 [facility] [address] [id number] [address] [place] [id number] March, Other ocean transportation intermediary (current) dr amie potter Z79.899 and HTN (hypertension) I10 [facility] [address] [id number] [address] [place] [address] March, Fibromyalgia M79.7 [facility] [address] [id number] [address] [place] [phone] Feb, [facility] [address] [facility] [id number] [address] [place] [phone] Feb, [facility] [address] [id number] [address] [place] [phone] Feb, [facility] [address] [facility] [id number] [address] [place] [address] Feb, Hyperlipemia E78.5 [facility] [address] [facility] [id number] [address] [place] [address] Feb, Migraines G43.909 ; Fibromya lgia M79.7 ; Degenerative disc disease, lumbar M51.36 ; Restless leg syndrome G25.81 ; HTN (hypertension) I10 and Tobacco abuse counseling Z71.6 [facility] [address] [facility] [id number] [address] [place] [phone] Feb, [facility] [address] [facility] [id number] [address] [place] [phone] Jan, [facility] [address] [facility] [id number] [address] [place] [phone] Jan, [facility] [address] [place] [id number] [address] [place] [phone] 15 Dec, 2015 [facility] [address] [facility] [id number] [address] [place] [address] 12 Dec, 2015 Degenerative disc disease, l umbar M51.36 ; Restless leg syndrome G25.81 ; Migraines G43.909 ; HTN (hypertension) I10 ; Fibromyalgia M79.7 and Other long-term (current) drug therapy Z79.899 [facility] [address] [place] [id number] [address] [place] [phone] Dec, [facility] [address] [place] [id number] [address] [place] [phone] Nov, [facility] [address] [place] [id number] [place] [phone] Nov, [facility] [address] [place] [id number] [place] [address] Oct, [facility] [address] [place] [id number] [place] [phone] Oct, [facility] [address] [place] [id number] [place] [phone] Oct, [facility] [address] [place] [id number] [place] [phone] Sep, [facility] [address] [place] [id number] [place] [address] Sep, Routine gynecological examin ation V72.31 ; Degenerative disc disease, lumbar M51.36 ; Fibromyalgia M79.7 ; Restless leg syndrome G25.81 ; Migraines G43.909 and Well woman exam Z01.419 [facility] [address] [place] [id number] [address] [place] [id number] 05 Sep, 2015 [facility] [address] [place] [id number] [address] [place] [id number] 28 Aug, 2015 [facility] [address] [place] [id number] [place] [address] Aug, Migraines G43.909 ; Degenera tive disc disease, lumbar M51.36 ; Fibromyalgia M79.7 ; Restless leg syndrome G25.81 and HTN (hypertension) I10 [facility] [address] [facility] [id number] [address] [place] [phone] Aug, [facility] [address] [place] [id number] [place] [phone] Aug, [facility] [address] [place] [id number] [address] [place] [phone] Jul, [facility] [address] [place] [id number] [place] [phone] Jul, [facility] [address] [place] [id number] [place] [address] Jun, Fibromyalgia 729.1 ; Lumbago 724.2 ; Restless leg syndrome 333.94 ; Migraines 346.90 and Elevated blood pressure (not hypertension) 796.2 [facility] [address] [place] [id number] [address] [place] [phone] May, Fibromyalgia 729.1 ; Nontoxi c uninodular goiter 241.0 ; Lumbago 724.2 ; Restless leg syndrome 333.94 and Migraines 346.90 [facility] [address] [place] [id number] [address] [place] [address] Feb, [facility] [address] [place] [id number] [address] [place] [phone] Feb, [facility] [address] [place] [id number] [address] [place] [phone] Jan, [facility] [address] [place] [id number] [place] [phone] Jan, [facility] [address] [place] [id number] [address] [place] [phone] Jan, [facility] [address] [place] [id number] [place] [phone] 12 Jan, 2014 [facility] [address] [id number] [address] [place] [address], [place] [phone] Jan, 2014 [facility] [address] [id number] [address] [place] [address], [place] [phone] Jan, 2014 [facility] [address] [id number] [address] [place] [address], [place] [phone] Jan, 2014 [facility] [address] [id number] [address] [place] [address], [place] [phone] Jan, 2014 [facility] [address] [id number] [address] [place] [address], [place] [address] Dec, 2014 [facility] [address] [id number] [address] [place] [address], [place] [address] Dec, 2014 [facility] [address] [id number] [address] [place] [address], [place] [address] Dec, 2014 [facility] [address] [id number] [address] [place] [address], [place] [address] Dec, 2014 [facility] [address] [id number] [address] [place] [address], [place] [address] Dec, 2014 [facility] [address] [id number] [address] [place] [address], [place] [address] Dec, 2014 [facility] [address] [id number] [address] [place] [address], [place] [address] Dec, 2014 [facility] [address] [id number] [address] [place] [address], [place] [address] Dec, 2014 [facility] [address] [id number] [address] [place] [address], [place] [id number] Dec, 2014 [facility] [address] [id number] [address] [place] [address], [place] [id number] Dec, 2014 [facility] [address] [id number] [address] [place] [address], [place] [id number] Dec, [facility] [address] [facility] [id number] [address] [place] [id number] Nov, [facility] [address] [facility] [id number] [address] [place] [id number] Nov, IMMUNIZATIONS No Known Immunizations SOCIAL HISTORY Never Assessed REASON FOR VISIT Controlled Refills 10/30 PLAN OF CARE VITAL SIGNS MEDICATIONS Medication Instructions Dosage Frequency Start Date End Date Duration S tatus Hydrocodone-Acetaminophen 10-325 MG Orally every 6 hrs 1 tablet as needed 6h Oct, 28 days Active RESULTS No Results PROCEDURES [...]
--- OUTSIDE RECORDS SUMMARY | 2020-02-04 14:58 | XMS REPORT ---
Author Author Caitie QUARLES Organization [facility] Address [address] [place] [address] Care Team Providers Care Stock Transfer Clerk Name Role Phone QUARLESSONYA Lamas Unavailable PROBLEMS Type Condition ICD9-CM Code [id number] Code Onset Dates Condition S tatus SNOMED Code Problem Muscle spasms of both lower extremities M62.838 Active 003423676 Problem Chronic pain disorder G89.4 Active 668057552 Problem OAB (overactive bladder) N32.81 Activ e 328043991 Problem Angina at rest I20.8 Active 29866 8000 Problem Overweight (BMI 25.0-29.9) E66.3 Act ramana 666748632 Problem Type 2 diabetes mellitus wit h hyperglycemia, without long-term current use of insulin E11.65 Active 66847360 Problem Chronic, continuous use of opioids F11.90 Active 276771764 Problem Chronic tension-type headache, intractable G44.221 Active 719463899 Problem Type 2 diabetes mellitus wit h diabetic polyneuropathy, without long-term current use of insulin E11.42 Active 23226 006 Problem Vitamin D deficiency E55.9 Active 70128401 Problem Restless leg syndrome G25.81 Active 03772550 Problem HTN (hypertension) I10 Active 3 5569679 Problem Migraines G43.909 Active 46956858 Problem Degenerative disc disease, lumbar M51.36 Active 33135293 Problem Hyperlipemia E78.5 Active 7388690 4 Problem Fibromyalgia M79.7 Active 9782022 7 Problem Anxiety F41.9 Active 71965640 ALLERGIES No Information ENCOUNTERS Encounter Location Date Diagnosis [facility] [address] [facility] [id number] [address] [place] [phone] Oct, [facility] [address] [facility] [id number] [address] [place] [phone] Oct, [facility] [address] [facility] [id number] [address] [place] [phone] Aug, [facility] [address] [facility] [id number] [address] [place] [phone] Aug, [facility] [address] [facility] [id number] [address] [place] [address] 14 Jul, 2018 HTN (hypertension) I10 ; Typ e 2 diabetes mellitus with hyperglycemia, without long-term current use of insulin E11.65 ; Overweight (BMI 25.0-29.9) E66.3 ; Fibromyalgia M79.7 ; Restless leg syndrome G25.81 ; Chronic pain disorder G89.4 ; Hyperlipemia E78.5 and Angina at rest I20.8 [facility] [address] [facility] [id number] [address] [place] [phone] 13 Jul, 2018 [place] [address] [facility] [id number] [address] [place] [phone] 11 Jul, 2018 Restless leg syndrome G25.81 [facility] [address] [facility] [id number] [address] [place] [address] Jun, Fibromyalgia M79.7 [facility] [address] [facility] [id number] [address] [place] [id number] 16 Jun, 2018 Chronic pain disorder G89.4 [facility] [address] [facility] [id number] [address] [place] [id number] Jun, [facility] [address] [facility] [id number] [address] [place] [phone] May, [facility] [address] [facility] [id number] [address] [place] [phone] May, Vitamin D deficiency E55.9 [facility] [address] [facility] [id number] [address] [place] [address] May, Vitamin D deficiency E55.9 [place] [address] [id number] [place] [address] May, Chronic pain disorder G89.4 [facility] [address] [place] [id number] [address] [place] [phone] May, Chronic pain disorder G89.4 [facility] [address] [address] Apr, Chronic pain disorder G89.4 [facility] [address] [address] Apr, Type 2 diabetes mellitus wit h diabetic polyneuropathy, without long-term current use of insulin E11.42 ; HTN (hypertension) I10 ; Hyperlipemia E78.5 ; Fibromyalgia M79.7 ; Degenerative disc disease, lumbar M51.36 ; Chronic pain disorder G89.4 ; Chronic, continuous use of opioids F11.90 ; Vitamin D deficiency E55.9 ; Anxiety F41.9 ; Chronic tension-type headache, intractable G44.221 and Overweight (BMI 25.0-29.9) E66.3 [place] [address] [address] March, Chronic pain disorder G89.4 [place] [address] [address] March, Type 2 diabetes mellitus wit h diabetic polyneuropathy, without long-term current use of insulin E11.42 [place] [address] [address] Feb, Chronic pain disorder G89.4 [place] [address] [address] Jan, [place] [address] [address] Jan, Pharyngitis, unspecified vashti ology J02.9 ; Fibromyalgia M79.7 and Chronic pain disorder G89.4 [facility] [address] [place] [id number] [address] [place] [phone] Jan, [place] [address] [id number] Jan, [place] [address] [address] Jan, [place] [address] [address] Jan, Type 2 diabetes mellitus wit h diabetic polyneuropathy, without long-term current use of insulin E11.42 ; Type 2 diabetes mellitus with hyperglycemia, without long-term current use of insulin E11.65 ; Degenerative disc disease, lumbar M51.36 ; Fibromyalgia M79.7 ; Restless leg syndrome G25.81 ; HTN (hypertension) I10 ; Hyperlipemia E78.5 ; Anxiety F41.9 ; Migraines G43.909 and High risk medication use Z79.899 [place] [address] [address] Dec, Chronic pain disorder G89.[address] [address] Nov, Chronic pain disorder G89.4 [place] [address] [address] Nov, [place] [address] [address] Nov, Type 2 diabetes mellitus wit h hyperglycemia, without long-term current use of insulin E11.65 ; HTN (hypertension) I10 ; Hyperlipemia E78.5 ; Restless leg syndrome G25.81 ; Fibromyalgia M79.7 ; Chronic tension-type headache, intractable G44.221 ; Migraines G43.909 ; Chronic pain disorder G89.4 and Overweight (BMI 25.0-29.9) E66.3 [place] [address] [address] Nov, [address] [address] Oct, Degenerative disc disease, l umbar M51.36 [place] [address] [address] Sep, Degenerative disc disease, l umbar M51.36 [place] [address] [place] [id number] [address] [place] [address] Sep, [facility] [address] [place] [id number] [address] [place] [address] Aug, Degenerative disc disease, l umbar M51.36 [place] [address] [place] [id number] [place] [address] Aug, Fall from height of greater than 3 feet W19.XXXA ; Hematoma of left hip, subsequent encounter S70.02XD ; Fibromyalgia M79.7 ; Muscle spasms of both lower extremities M62.838 ; Anxiety F41.9 ; Degenerative disc disease, lumbar M51.36 ; Chronic pain disorder G89.4 and Chronic, continuous use of opioids F11.90 [place] [id number] [place] [address] Jul, [place] [address] [place] [id number] [address] [place] [address] Jul, Degenerative disc disease, l umbar M51.36 [place] [address] [place] [id number] [address] [place] [phone] Jun, Degenerative disc disease, l umbar M51.36 [place] [address] [place] [id number] [address] [place] [address] May, Degenerative disc disease, l umbar M51.36 [place] [address] [facility] [id number] [address] [place] [address] May, [place] [address] [place] [id number] [address] [place] [address] Apr, Degenerative disc disease, l umbar M51.36 [place] [address] [place] [id number] [address] [place] [address] Apr, Degenerative disc disease, l umbar M51.36 [place] [address] [place] [id number] [address] [place] [address] March, Degenerative disc disease, l umbar M51.36 and Fall (on) (from) other stairs and steps, initial encounter W10.8XXA [facility] [address] [facility] [id number] [address] [place] [address] March, [facility] [address] [facility] [id number] [address] [place] [address] March, [facility] [address] [facility] [id number] [address] [place] [address] March, [facility] [address] [place] [id number] [address] [place] [address] March, [facility] [address] [place] [id number] [address] [place] [address] Feb, [facility] [address] [place] [id number] [address] [place] [phone] Jan, Fibromyalgia M79.7 [facility] [address] [place] [id number] [address] [place] [address] Jan, [facility] [address] [place] [id number] [address] [place] [address] Dec, Degenerative disc disease, l umbar M51.36 [facility] [address] [place] [id number] [address] [place] [address] Dec, [facility] [address] [place] [id number] [address] [place] [address] Nov, Degenerative disc disease, l umbar M51.36 ; Fibromyalgia M79.7 ; Restless leg syndrome G25.81 ; HTN (hypertension) I10 ; Hyperlipemia E78.5 ; Chronic tension-type headache, intractable G44.221 and OAB (overactive bladder) N32.81 [facility] [address] [place] [id number] [address] [place] [address] Nov, [facility] [address] [place] [id number] [address] [place] [address] Oct, [facility] [address] [facility] [id number] [address] [place] [address] Oct, [facility] [address] [id number] CHARY[place] [id number] Oct, [facility] [address] [facility] [id number] [address] [place] [address] Sep, [facility] [address] [facility] [id number] [address] [place] [address] Aug, [facility] [address] [facility] [id number] [address] [place] [address] Aug, [facility] [address] [facility] [id number] [address] [place] [address] Aug, Degenerative disc disease, l umbar M51.36 [facility] [address] [facility] [id number] [address] [place] [address] Aug, Degenerative disc disease, l umbar M51.36 ; Fibromyalgia M79.7 ; Migraines G43.909 ; Hyperlipemia E78.5 ; Muscle spasms of both lower extremities M62.838 ; Chronic tension-type headache, intractable G44.221 ; HTN (hypertension) I10 and Restless leg syndrome G25.81 [facility] [address] [facility] [id number] [address] [place] [address] Jul, [facility] [address] [facility] [id number] [address] [place] [address] Jul, [facility] [address] [facility] [id number] [address] [place] [address] Jul, [facility] [address] [facility] [id number] [address] [place] [address] Jun, Chronic tension-type headach e, intractable G44.221 ; Muscle spasms of both lower extremities M62.838 ; Fibromyalgia M79.7 ; Degenerative disc disease, lumbar M51.36 ; Restless leg syndrome G25.81 ; Migraines G43.909 ; Hyperlipemia E78.5 and Anxiety F41.9 [facility] [address] [id number] [address] [place] [address] Jun, [facility] [address] [id number] [address] [place] [phone] Jun, [facility] [address] [facility] [id number] [address] [place] [address] Jun, [facility] [address] [id number] [address] [place] [address] Jun, [facility] [address] [facility] [id number] [address] [place] [address] May, Sebaceous cyst L72.3 [facility] [address] [facility] [id number] [address] [place] [address] May, Low back pain M54.5 [facility] [address] [facility] [id number] [address] [place] [address] Apr, [facility] [address] [facility] [id number] [address] [place] [address] Apr, Fibromyalgia M79.7 [facility] [address] [facility] [id number] [address] [place] [address] Apr, Degenerative disc disease, l umbar M51.36 ; Fibromyalgia M79.7 ; Migraines G43.909 ; Hyperlipemia E78.5 ; Restless leg syndrome G25.81 ; Other intractable trigeminal autonomic cephalgia (TAC) G44.091 ; Secondary hypertension I15.9 and Anxiety F41.9 [facility] [address] [facility] [id number] [address] [place] [address] March, Other detention (current) dr amie potter Z79.899 and HTN (hypertension) I10 [facility] [address] [facility] [id number] [address] [place] [address] March, Fibromyalgia M79.7 [place] [address] [facility] [id number] [address] [place] [address] Feb, [facility] [address] [facility] [id number] [address] [place] [address] Feb, [facility] [address] [facility] [id number] [address] [place] [address] Feb, [facility] [address] [facility] [id number] [address] [place] [address] Feb, Hyperlipemia E78.5 [facility] [address] [facility] [id number] [address] [place] [address] Feb, Migraines G43.909 ; Fibromya lgia M79.7 ; Degenerative disc disease, lumbar M51.36 ; Restless leg syndrome G25.81 ; HTN (hypertension) I10 and Tobacco abuse counseling Z71.6 [facility] [address] [place] [id number] [address] [place] [address] Feb, [facility] [address] [facility] [id number] [address] [place] [address] Jan, [facility] [address] [place] [id number] [address] [place] [address] Jan, [facility] [address] [facility] [id number] [address] [place] [address] Dec, [facility] [address] [place] [id number] [address] [place] [address] Dec, Degenerative disc disease, l umbar M51.36 ; Restless leg syndrome G25.81 ; Migraines G43.909 ; HTN (hypertension) I10 ; Fibromyalgia M79.7 and Other superintendent terminal (current) drug therapy Z79.899 [facility] [address] [facility] [id number] [address] [place] [address] Dec, [facility] [address] [facility] [id number] [address] [place] [address] Nov, [facility] [address] [facility] [id number] [address] [place] [address] Nov, [facility] [address] [facility] [id number] [address] [place] [phone] Oct, [facility] [address] [facility] [id number] [address] [place] [address] Oct, [facility] [address] [facility] [id number] [address] [place] [address] Oct, [facility] [address] [facility] [id number] [address] [place] [address] Sep, [facility] [address] [facility] [id number] [address] [place] [address] Sep, Routine gynecological examin ation V72.31 ; Degenerative disc disease, lumbar M51.36 ; Fibromyalgia M79.7 ; Restless leg syndrome G25.81 ; Migraines G43.909 and Well woman exam Z01.419 [facility] [address] [place] [id number] [address] [place] [address] Sep, [facility] [address] [facility] [id number] [address] [place] [address] Aug, [facility] [address] [facility] [id number] [address] [place] [address] Aug, Migraines G43.909 ; Degenera tive disc disease, lumbar M51.36 ; Fibromyalgia M79.7 ; Restless leg syndrome G25.81 and HTN (hypertension) I10 [facility] [address] [facility] [id number] [address] [place] [address] Aug, [facility] [address] [place] [id number] [address] [place] [address] Aug, [facility] [address] [facility] [id number] [address] [place] [address] Jul, [facility] [address] [place] [id number] [address] [place] [address] Jul, [facility] [address] [id number] [address] [place] [address] Jun, Fibromyalgia 729.1 ; Lumbago 724.2 ; Restless leg syndrome 333.94 ; Migraines 346.90 and Elevated blood pressure (not hypertension) 796.2 [facility] [address] [id number] [address] [place] [address] May, Fibromyalgia 729.1 ; Nontoxi c uninodular goiter 241.0 ; Lumbago 724.2 ; Restless leg syndrome 333.94 and Migraines 346.90 [facility] [address] [id number] [address] [place] [address] Feb, [facility] [address] [id number] [address] [place] [address] Feb, [facility] [address] [id number] [address] [place] [phone] Jan, [facility] [address] [id number] [address] [place] [address] Jan, [facility] [address] [id number] [address] [place] [phone] Jan, [facility] [address] [id number] [address] [place] [phone] Jan, [facility] [address] [id number] [address] [place] [phone] Jan, [facility] [address] [id number] [address] [place] [phone] Jan, [facility] [address] [id number] [address] [place] [phone] Jan, [facility] [address] [id number] [address] [place] [address] Jan, [facility] [address] [id number] [address] [place] [phone] Dec, [facility] [address] [id number] [address] [place] [phone] Dec, [facility] [address] [id number] [address] [place] [phone] Dec, [facility] [address] [id number] [address] [place] [address] Dec, [facility] [address] [id number] [address] [place] [phone] Dec, [facility] [address] [id number] [address] [place] [phone] Dec, [facility] [address] [id number] [address] [place] [phone] Dec, [facility] [address] [id number] [address] [place] [phone] Dec, [facility] [address] [id number] [address] [place] [phone] Dec, [facility] [address] [id number] [address] [place] [phone] Dec, [facility] [address] [id number] [address] [place] [phone] Dec, [facility] [address] [id number] [address] [place] [phone] Nov, [facility] [address] [id number] [address] [place] [phone] Nov, IMMUNIZATIONS No Known Immunizations SOCIAL HISTORY Never Assessed REASON FOR VISIT Refill request PLAN OF CARE VITAL SIGNS MEDICATIONS Medication Instructions Dosage Frequency Start Date End Date Duration S tatus Requip 3 MG Orally once daily as needed 1 tablet Aug, 210 days Active RESULTS No Results PROCEDURES No [...]
--- OUTSIDE RECORDS SUMMARY | 2020-02-04 14:58 | XMS REPORT ---
Author Author Caitie QUARLES Organization [facility] Address [address] [place] [address] Care Team Providers Care Fine Arts Model Name Role Phone QUARLESSONYA Lamas Unavailable PROBLEMS Type Condition ICD9-CM Code QIM50-OQ Code Onset Dates Condition S tatus SNOMED Code Problem Muscle spasms of both lower extremities M62.838 Active 402134196 Problem Chronic pain disorder G89.4 Active 591237185 Problem OAB (overactive bladder) N32.81 Activ e 966414445 Problem Angina at rest I20.8 Active 76730 8000 Problem Overweight (BMI 25.0-29.9) E66.3 Act ramana 111420929 Problem Type 2 diabetes mellitus wit h hyperglycemia, without long-term current use of insulin E11.65 Active 96952977 Problem Chronic, continuous use of opioids F11.90 Active 740111326 Problem Chronic tension-type headache, intractable G44.221 Active 055474636 Problem Type 2 diabetes mellitus wit h diabetic polyneuropathy, without long-term current use of insulin E11.42 Active 57091 006 Problem Vitamin D deficiency E55.9 Active 35901142 Problem Restless leg syndrome G25.81 Active 87221492 Problem HTN (hypertension) I10 Active 3 9955750 Problem Migraines G43.909 Active 29689014 Problem Degenerative disc disease, lumbar M51.36 Active 39216036 Problem Hyperlipemia E78.5 Active 2716613 4 Problem Fibromyalgia M79.7 Active 5918718 7 Problem Anxiety F41.9 Active 83658119 ALLERGIES No Information ENCOUNTERS Encounter Location Date Diagnosis [facility] [address] [facility] [id number] [address] [place] [address] Oct, [facility] [address] [facility] [id number] [address] [place] [address] Aug, [facility] [address] [facility] [id number] [address] [place] [address] 14 Jul, 2018 HTN (hypertension) I10 ; Typ e 2 diabetes mellitus with hyperglycemia, without long-term current use of insulin E11.65 ; Overweight (BMI 25.0-29.9) E66.3 ; Fibromyalgia M79.7 ; Restless leg syndrome G25.81 ; Chronic pain disorder G89.4 ; Hyperlipemia E78.5 and Angina at rest I20.8 [facility] [address] [facility] [id number] [address] [place] [address] 13 Jul, 2018 [facility] [address] [facility] [id number] [address] [place] [address] 11 Jul, 2018 Restless leg syndrome G25.81 [facility] [address] [facility] [id number] [address] [place] [address] 28 Jun, 2018 Fibromyalgia M79.7 [place] [address] [facility] [id number] [address] [place] [address] 16 Jun, 2018 Chronic pain disorder G89.4 [facility] [address] [facility] [id number] [address] [place] [address] Jun, [place] [address] [facility] [id number] [address] [place] [address] May, [facility] [address] [facility] [id number] [address] [place] [address] May, Vitamin D deficiency E55.9 [facility] [address] [facility] [id number] [address] [place] [address] May, Vitamin D deficiency E55.[id number] [place] [address] May, Chronic pain disorder G89.4 [facility] [address] [facility] [id number] [address] [place] [address] May, Chronic pain disorder G89.4 [facility] [address] [facility] [id number] [address] [place] [address] Apr, Chronic pain disorder G89.4 [facility] [address] [facility] [id number] [address] [place] [address] 15 Apr, 2018 Type 2 diabetes mellitus [...] intractable G44.221 and Overweight (BMI 25.0-29.9) E66.3 [place] [address] [facility] [id number] [address] [place] [address] March, Chronic pain disorder G89.4 [place] [address] [place] [id number] [address] [place] [address] March, Type 2 diabetes mellitus wit h diabetic polyneuropathy, without long-term current use of insulin E11.42 [place] [address] [facility] [id number] [address] [place] [address] Feb, Chronic pain disorder G89.4 [place] [address] [facility] [id number] [address] [place] [address] Jan, [place] [address] [place] [id number] [address] [place] [address] Jan, Pharyngitis, unspecified vashti ology J02.9 ; Fibromyalgia M79.7 and Chronic pain disorder G89.4 [place] [address] [facility] [id number] [address] [place] [address] Jan, [place] [address] [facility] [id number] [address] [place] [address] Jan, [place] [address] [facility] [id number] [address] [place] [address] Jan, [place] [address] [place] [id number] [address] [place] [address] Jan, Type 2 diabetes mellitus wit h diabetic polyneuropathy, without long-term current use of insulin E11.42 ; Type 2 diabetes mellitus with hyperglycemia, without long-term current use of insulin E11.65 ; Degenerative disc disease, lumbar M51.36 ; Fibromyalgia M79.7 ; Restless leg syndrome G25.81 ; HTN (hypertension) I10 ; Hyperlipemia E78.5 ; Anxiety F41.9 ; Migraines G43.909 and High risk medication use Z79.899 [place] [address] [address] Dec, Chronic pain disorder G89.4 [place] [address] [address] Nov, Chronic pain disorder G89.4 [place] [address] [address] Nov, [place] [address] [address] Nov, Type 2 diabetes mellitus wit h hyperglycemia, without long-term current use of insulin E11.65 ; HTN (hypertension) I10 ; Hyperlipemia E78.5 ; Restless leg syndrome G25.81 ; Fibromyalgia M79.7 ; Chronic tension-type headache, intractable G44.221 ; Migraines G43.909 ; Chronic pain disorder G89.4 and Overweight (BMI 25.0-29.9) E66.3 [place] [address] [place] [id number] [address] [place] [address] Nov, [place] [address] [address] Oct, Degenerative disc disease, l umbar M51.36 [place] [address] [address] Sep, Degenerative disc disease, l umbar M51.36 [place] [address] [place] [id number] [address] [place] [address] Sep, [place] [address] [address] Aug, Degenerative disc disease, l umbar M51.36 [place] [address] [address] Aug, Fall from height of greater than 3 feet W19.XXXA ; Hematoma of left hip, subsequent encounter S70.02XD ; Fibromyalgia M79.7 ; Muscle spasms of both lower extremities M62.838 ; Anxiety F41.9 ; Degenerative disc disease, lumbar M51.36 ; Chronic pain disorder G89.4 and Chronic, continuous use of opioids F11.90 [place] [address] [address] Jul, [place] [address] [address] Jul, Degenerative disc disease, l umbar M51.36 [place] [address] [address] Jun, Degenerative disc disease, l umbar M51.36 [place] [address] [address] May, Degenerative disc disease, l umbar M51.36 [place] [address] [address] May, [place] [address] [address] Apr, Degenerative disc disease, l umbar M51.36 [place] [address] [place] [id number] [address] [place] [address] Apr, Degenerative disc disease, l umbar M51.36 [place] [address] [place] [id number] [address] [place] [address] March, Degenerative disc disease, l umbar M51.36 and Fall (on) (from) other stairs and steps, initial encounter W10.8XXA [place] [address] [place] [id number] [address] [place] [address] March, [facility] [address] [facility] [id number] [address] [place] [address] March, [facility] [address] [facility] [id number] [address] [place] [address] March, [facility] [address] [place] [id number] [address] [place] [address] March, [facility] [address] [facility] [id number] [address] [place] [address] Feb, [facility] [address] [place] [id number] [place] [address] Jan, Fibromyalgia M79.7 [facility] [address] [place] [id number] [address] [place] [address] Jan, [facility] [address] [place] [id number] [place] [address] Dec, Degenerative disc disease, l umbar M51.36 [facility] [address] [place] [id number] [address] [place] [address] Dec, [facility] [address] [place] [id number] [address] [place] [address] Nov, Degenerative disc disease, l umbar M51.36 ; Fibromyalgia M79.7 ; Restless leg syndrome G25.81 ; HTN (hypertension) I10 ; Hyperlipemia E78.5 ; Chronic tension-type headache, intractable G44.221 and OAB (overactive bladder) N32.81 [facility] [address] [facility] [id number] [address] [place] [address] Nov, [facility] [address] [place] [id number] [address] [place] [address] Oct, [facility] [address] [place] [id number] [address] [place] [address] Oct, [address] [id number] [id number] Oct, [facility] [address] [place] [address] Sep, [facility] [address] [place] [id number] [address] [place] [address] Aug, [facility] [address] [place] [address] Aug, [facility] [address] [address] Aug, Degenerative disc disease, l umbar M51.36 [place] [address] [address] Aug, Degenerative disc disease, l umbar M51.36 ; Fibromyalgia M79.7 ; Migraines G43.909 ; Hyperlipemia E78.5 ; Muscle spasms of both lower extremities M62.838 ; Chronic tension-type headache, intractable G44.221 ; HTN (hypertension) I10 and Restless leg syndrome G25.81 [facility] [address] [place] [id number] [address] [place] [address] Jul, [place] [address] [address] Jul, [place] [address] [place] [id number] [address] [place] [address] Jul, [facility] [address] [address] Jun, Chronic tension-type headach e, intractable G44.221 ; Muscle spasms of both lower extremities M62.838 ; Fibromyalgia M79.7 ; Degenerative disc disease, lumbar M51.36 ; Restless leg syndrome G25.81 ; Migraines G43.909 ; Hyperlipemia E78.5 and Anxiety F41.9 [facility] [address] [place] [id number] [address] [place] [address] Jun, [place] [address] [id number] [address] [place] [address] Jun, [facility] [address] [facility] [id number] [address] [place] [address] Jun, [facility] [address] [id number] [address] [place] [address] Jun, [facility] [address] [facility] [id number] [address] [place] [address] May, Sebaceous cyst L72.3 [facility] [address] [facility] [id number] [address] [place] [address] May, Low back pain M54.5 [facility] [address] [facility] [id number] [address] [place] [address] Apr, [facility] [address] [facility] [id number] [address] [place] [address] Apr, Fibromyalgia M79.7 [facility] [address] [facility] [id number] [address] [place] [address] Apr, Degenerative disc disease, l umbar M51.36 ; Fibromyalgia M79.7 ; Migraines G43.909 ; Hyperlipemia E78.5 ; Restless leg syndrome G25.81 ; Other intractable trigeminal autonomic cephalgia (TAC) G44.091 ; Secondary hypertension I15.9 and Anxiety F41.9 [facility] [address] [facility] [id number] [address] [place] [address] March, Other nursing home (current) dr amie potter Z79.899 and HTN (hypertension) I10 [facility] [address] [facility] [id number] [address] [place] [address] March, Fibromyalgia M79.7 [facility] [address] [facility] [id number] [address] [place] [address] Feb, [facility] [address] [facility] [id number] [address] [place] [address] Feb, [facility] [address] [facility] [id number] [address] [place] [address] Feb, [facility] [address] [facility] [id number] [address] [place] [address] Feb, Hyperlipemia E78.5 [facility] [address] [facility] [id number] [address] [place] [address] Feb, Migraines G43.909 ; Fibromya lgia M79.7 ; Degenerative disc disease, lumbar M51.36 ; Restless leg syndrome G25.81 ; HTN (hypertension) I10 and Tobacco abuse counseling Z71.6 [facility] [address] [facility] [id number] [address] [place] [address] Feb, [facility] [address] [facility] [id number] [address] [place] [address] Jan, [facility] [address] [place] [id number] [address] [place] [address] Jan, [facility] [address] [facility] [id number] [address] [place] [address] Dec, [facility] [address] [place] [id number] [address] [place] [address] Dec, Degenerative disc disease, l umbar M51.36 ; Restless leg syndrome G25.81 ; Migraines G43.909 ; HTN (hypertension) I10 ; Fibromyalgia M79.7 and Other nursing home (current) drug therapy Z79.899 [facility] [address] [facility] [id number] [address] [place] [address] Dec, [facility] [address] [facility] [id number] [address] [place] [address] Nov, [facility] [address] [place] [id number] [address] [place] [address] Nov, [facility] [address] [facility] [id number] [address] [place] [address] Oct, [facility] [address] [facility] [id number] [address] [place] [address] Oct, [facility] [address] [facility] [id number] [address] [place] [address] Oct, [facility] [address] [facility] [id number] [address] [place] [address] Sep, [facility] [address] [place] [id number] [address] [place] [address] Sep, Routine gynecological examin ation V72.31 ; Degenerative disc disease, lumbar M51.36 ; Fibromyalgia M79.7 ; Restless leg syndrome G25.81 ; Migraines G43.909 and Well woman exam Z01.419 [facility] [address] [facility] [id number] [address] [place] [address] Sep, [facility] [address] [place] [id number] [address] [place] [address] Aug, [facility] [address] [place] [id number] [address] [place] [address] Aug, Migraines G43.909 ; Degenera tive disc disease, lumbar M51.36 ; Fibromyalgia M79.7 ; Restless leg syndrome G25.81 and HTN (hypertension) I10 [facility] [address] [place] [id number] [address] [place] [address] Aug, [facility] [address] [facility] [id number] [address] [place] [address] Aug, [facility] [address] [facility] [id number] [address] [place] [address] Jul, [facility] [address] [place] [id number] [address] [place] [address] Jul, [facility] [address] [facility] [id number] [address] [place] [address] Jun, Fibromyalgia 729.1 ; Lumbago 724.2 ; Restless leg syndrome 333.94 ; Migraines 346.90 and Elevated blood pressure (not hypertension) 796.2 [facility] [address] [id number] [address] [place] [address] May, Fibromyalgia 729.1 ; Nontoxi c uninodular goiter 241.0 ; Lumbago 724.2 ; Restless leg syndrome 333.94 and Migraines 346.90 [facility] [address] [id number] [address] [place] [address] 14 Feb, 2015 [facility] [address] [id number] [address] [place] [address] Feb, [facility] [address] [id number] [address] [place] [address] Jan, [facility] [address] [id number] [address] [place] [address] Jan, [facility] [address] [facility] [id number] [address] [place] [address] Jan, [facility] [address] [id number] [address] [place] [address] Jan, [facility] [address] [facility] [id number] [address] [place] [address] Jan, [facility] [address] [facility] [id number] [address] [place] [address] Jan, [facility] [address] [facility] [id number] [address] [place] [address] Jan, [facility] [address] [id number] [address] [place] [address] Jan, [facility] [address] [facility] [id number] [address] [place] [address] Dec, [facility] [address] [facility] [id number] [address] [place] [address] Dec, [facility] [address] [id number] [address] [place] [address] Dec, [facility] [address] [id number] [address] [place] [address] Dec, [facility] [address] [id number] [address] [place] [address] Dec, [facility] [address] [id number] [address] [place] [address] Dec, [facility] [address] [id number] [address] [place] [address] Dec, [facility] [address] [id number] [address] [place] [address] Dec, [facility] [address] [id number] [address] [place] [address] Dec, [facility] [address] [id number] [address] [place] [address] Dec, [facility] [address] [id number] [address] [place] [address] Dec, [facility] [address] [id number] [address] [place] [address] Nov, [facility] [address] [id number] [address] [place] [address] Nov, IMMUNIZATIONS No Known Immunizations SOCIAL HISTORY Never Assessed REASON FOR VISIT Repository Medication PLAN OF CARE VITAL SIGNS MEDICATIONS Medication Instructions Dosage Frequency Start Date End Date Duration S tatus Gabapentin 400 mg Orally 3 times a [...] History surgery Hospitalization History childbirth Hospitalization History [facility] ER for migraine
--- OUTSIDE RECORDS SUMMARY | 2020-02-04 14:58 | XMS REPORT ---
Author Author Caitie QUARLES Organization [facility] Address [address] [place] [address] Care Team Providers Care Replenishment Specialist Name Role Phone QUARLESSONYA Lamas Unavailable PROBLEMS Type Condition ICD9-CM Code [id number] Code Onset Dates Condition S tatus SNOMED Code Problem Muscle spasms of both lower extremities M62.838 Active 315822976 Problem Chronic pain disorder G89.4 Active 694897029 Problem OAB (overactive bladder) N32.81 Activ e 763424017 Problem Angina at rest I20.8 Active 66973 8000 Problem Overweight (BMI 25.0-29.9) E66.3 Act ramana 795641613 Problem Type 2 diabetes mellitus wit h hyperglycemia, without long-term current use of insulin E11.65 Active 59311668 Problem Chronic, continuous use of opioids F11.90 Active 322650662 Problem Chronic tension-type headache, intractable G44.221 Active 163425534 Problem Type 2 diabetes mellitus wit h diabetic polyneuropathy, without long-term current use of insulin E11.42 Active 14192 006 Problem Vitamin D deficiency E55.9 Active 31339430 Problem Restless leg syndrome G25.81 Active 35856378 Problem HTN (hypertension) I10 Active 3 3257201 Problem Migraines G43.909 Active 04657915 Problem Degenerative disc disease, lumbar M51.36 Active 48093405 Problem Hyperlipemia E78.5 Active 5452136 4 Problem Fibromyalgia M79.7 Active 9719003 7 Problem Anxiety F41.9 Active 13586368 ALLERGIES Substance Reaction Event Type Date Status Amoxicillin hives Drug Allergy Jul, Active tape rash Non Drug Allergy Jul, Active ENCOUNTERS Encounter Location Date Diagnosis [facility] [address] [facility] [id number] [address] [place] [phone] Oct, [facility] [address] [facility] [id number] [address] [place] [phone] Oct, [facility] [address] [facility] [id number] [address] [place] [phone] Aug, [facility] [address] [facility] [id number] [address] [place] [phone] Aug, [facility] [address] [facility] [id number] [address] [place] [id number] 14 Jul, 2018 HTN (hypertension) I10 ; Typ e 2 diabetes mellitus with hyperglycemia, without long-term current use of insulin E11.65 ; Overweight (BMI 25.0-29.9) E66.3 ; Fibromyalgia M79.7 ; Restless leg syndrome G25.81 ; Chronic pain disorder G89.4 ; Hyperlipemia E78.5 and Angina at rest I20.8 [place] [address] [facility] [id number] [address] [place] [phone] 13 Jul, 2018 [place] [address] [facility] [id number] [address] [place] [phone] 11 Jul, 2018 Restless leg syndrome G25.81 [facility] [address] [facility] [id number] [address] [place] [phone] Jun, Fibromyalgia M79.7 [facility] [address] [facility] [id number] [address] [place] [phone] 16 Jun, 2018 Chronic pain disorder G89.4 [place] [address] [facility] [id number] [address] [place] [phone] Jun, [facility] [address] [facility] [id number] [address] [place] [phone] May, [facility] [address] [facility] [id number] [address] [place] [phone] May, Vitamin D deficiency E55.9 [facility] [address] [facility] [id number] [address] [place] [phone] May, Vitamin D deficiency E55.[id number] [place] [phone] May, Chronic pain disorder G89.4 [place] [address] [place] [id number] [address] [place] [phone] May, Chronic pain disorder G89.4 [place] [address] [id number] Apr, Chronic pain disorder G89.4 [place] [address] [address] Apr, Type 2 diabetes mellitus wit h [...] and Overweight (BMI 25.0-29.9) E66.3 [place] [address] [id number] March, Chronic pain disorder G89.4 [place] [address] [address] March, Type 2 diabetes mellitus wit h diabetic polyneuropathy, without long-term current use of insulin E11.42 [place] [address] [place] [id number] [address] [place] [phone] Feb, Chronic pain disorder G89.4 [place] [address] [place] [id number] [address] [place] [phone] Jan, [place] [address] [address] Jan, Pharyngitis, unspecified vashti ology J02.9 ; Fibromyalgia M79.7 and Chronic pain disorder G89.4 [place] [address] [place] [id number] [address] [place] [phone] Jan, [place] [address] [address] Jan, [place] [address] [address] Jan, [place] [address] [address] Jan, Type 2 diabetes mellitus wit h diabetic polyneuropathy, without long-term current use of insulin E11.42 ; Type 2 diabetes mellitus with hyperglycemia, without long-term current use of insulin E11.65 ; Degenerative disc disease, lumbar M51.36 ; Fibromyalgia M79.7 ; Restless leg syndrome G25.81 ; HTN (hypertension) I10 ; Hyperlipemia E78.5 ; Anxiety F41.9 ; Migraines G43.909 and High risk medication use Z79.[address] [address] Dec, Chronic pain disorder G89.4 [place] [address] [address] Nov, Chronic pain disorder G89.4 [place] [address] [address] Nov, [place] [address] [address] Nov, Type 2 diabetes mellitus wit h hyperglycemia, without long-term current use of insulin E11.65 ; HTN (hypertension) I10 ; Hyperlipemia E78.5 ; Restless leg syndrome G25.81 ; Fibromyalgia M79.7 ; Chronic tension-type headache, intractable G44.221 ; Migraines G43.909 ; Chronic pain disorder G89.4 and Overweight (BMI 25.0-29.9) E66.3 [place] [address] [address] Nov, [place] [address] [address] Oct, Degenerative disc disease, l umbar M51.36 [facility] [address] [place] [id number] [address] [place] [phone] Sep, Degenerative disc disease, l umbar M51.36 [place] [address] [place] [id number] [place] [phone] Sep, [place] [address] [place] [id number] [place] [address] Aug, Degenerative disc disease, l umbar M51.36 [place] [address] [place] [id number] [place] [address] Aug, Fall from height of greater than 3 feet W19.XXXA ; Hematoma of left hip, subsequent encounter S70.02XD ; Fibromyalgia M79.7 ; Muscle spasms of both lower extremities M62.838 ; Anxiety F41.9 ; Degenerative disc disease, lumbar M51.36 ; Chronic pain disorder G89.4 and Chronic, continuous use of opioids F11.90 [place] [address] [address] Jul, [place] [address] [address] Jul, Degenerative disc disease, l umbar M51.36 [place] [address] [place] [id number] [place] [phone] Jun, Degenerative disc disease, l umbar M51.36 [place] [address] [place] [id number] [address] [place] [phone] May, Degenerative disc disease, l umbar M51.36 [place] [address] [place] [id number] [address] [place] [phone] May, [place] [address] [place] [id number] [place] [phone] Apr, Degenerative disc disease, l umbar M51.36 [place] [address] [address] Apr, Degenerative disc disease, l umbar M51.36 [facility] [address] [id number] [address] [place] [phone] March, Degenerative disc disease, l umbar M51.36 and Fall (on) (from) other stairs and steps, initial encounter W10.8XXA [facility] [address] [id number] [address] [place] [phone] March, [facility] [address] [id number] [address] [place] [phone] March, [facility] [address] [id number] [address] [place] [phone] March, [facility] [address] [place] [id number] [address] [place] [phone] March, [facility] [address] [facility] [id number] [address] [place] [phone] Feb, [facility] [address] [id number] [address] [place] [phone] Jan, Fibromyalgia M79.7 [facility] [address] [place] [id number] [address] [place] [phone] Jan, [facility] [address] [facility] [id number] [address] [place] [phone] Dec, Degenerative disc disease, l umbar M51.36 [facility] [address] [facility] [id number] [address] [place] [phone] Dec, [facility] [address] [facility] [id number] [address] [place] [phone] Nov, Degenerative disc disease, l umbar M51.36 ; Fibromyalgia M79.7 ; Restless leg syndrome G25.81 ; HTN (hypertension) I10 ; Hyperlipemia E78.5 ; Chronic tension-type headache, intractable G44.221 and OAB (overactive bladder) N32.81 [facility] [address] [id number] [address] [place] [phone] Nov, [facility] [address] [facility] [id number] [address] [place] [phone] Oct, [facility] [address] [facility] [id number] [address] [place] [phone] Oct, [facility] [address] [id number] [id number] Oct, [facility] [address] [facility] [id number] [address] [place] [phone] Sep, [facility] [address] [facility] [id number] [address] [place] [address] Aug, [facility] [address] [facility] [id number] [address] [place] [phone] Aug, [facility] [address] [facility] [id number] [address] [place] [address] Aug, Degenerative disc disease, l umbar M51.36 [facility] [address] [facility] [id number] [address] [place] [address] Aug, Degenerative disc disease, l umbar M51.36 ; Fibromyalgia M79.7 ; Migraines G43.909 ; Hyperlipemia E78.5 ; Muscle spasms of both lower extremities M62.838 ; Chronic tension-type headache, intractable G44.221 ; HTN (hypertension) I10 and Restless leg syndrome G25.81 [facility] [address] [facility] [id number] [address] [place] [address] Jul, [facility] [address] [facility] [id number] [address] [place] [id number] Jul, [facility] [address] [facility] [id number] [address] [place] [phone] Jul, [facility] [address] [facility] [id number] [address] [place] [id number] Jun, Chronic tension-type headach e, intractable G44.221 ; Muscle spasms of both lower extremities M62.838 ; Fibromyalgia M79.7 ; Degenerative disc disease, lumbar M51.36 ; Restless leg syndrome G25.81 ; Migraines G43.909 ; Hyperlipemia E78.5 and Anxiety F41.9 [facility] [address] [facility] [id number] [address] [place] [phone] Jun, [facility] [address] [facility] [id number] [address] [place] [phone] Jun, [facility] [address] [facility] [id number] [address] [place] [phone] Jun, [place] [address] [facility] [id number] [address] [place] [phone] Jun, [place] [address] [facility] [id number] [address] [place] [phone] May, Sebaceous cyst L72.3 [place] [address] [place] [id number] [address] [place] [phone] May, Low back pain M54.5 [place] [address] [facility] [id number] [address] [place] [phone] Apr, [place] [address] [place] [id number] [address] [place] [phone] Apr, Fibromyalgia M79.7 [place] [address] [place] [id number] [address] [place] [address] Apr, Degenerative disc disease, l umbar M51.36 ; Fibromyalgia M79.7 ; Migraines G43.909 ; Hyperlipemia E78.5 ; Restless leg syndrome G25.81 ; Other intractable trigeminal autonomic cephalgia (TAC) G44.091 ; Secondary hypertension I15.9 and Anxiety F41.9 [place] [id number] [facility] [id number] [address] [place] [address] March, Other alf (current) dr amie potter Z79.899 and HTN (hypertension) I10 [place] [address] [facility] [id number] [address] [place] [phone] March, Fibromyalgia M79.7 [facility] [address] [facility] [id number] [address] [place] [phone] Feb, [facility] [address] [facility] [id number] [address] [place] [phone] Feb, [facility] [address] [facility] [id number] [address] [place] [phone] Feb, [facility] [address] [place] [id number] [address] [place] [phone] Feb, Hyperlipemia E78.5 [facility] [address] [place] [id number] [address] [place] [phone] Feb, Migraines G43.909 ; Fibromya lgia M79.7 ; Degenerative disc disease, lumbar M51.36 ; Restless leg syndrome G25.81 ; HTN (hypertension) I10 and Tobacco abuse counseling Z71.6 [facility] [address] [place] [id number] [address] [place] [phone] Feb, [facility] [address] [place] [id number] [address] [place] [id number] Jan, [facility] [address] [place] [id number] [address] [place] [phone] Jan, [facility] [address] [place] [id number] [address] [place] [phone] Dec, [facility] [address] [place] [id number] [address] [place] [id number] Dec, Degenerative disc disease, l umbar M51.36 ; Restless leg syndrome G25.81 ; Migraines G43.909 ; HTN (hypertension) I10 ; Fibromyalgia M79.7 and 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 [facility] [address] [place] [id number] [address] [place] [phone] Dec, [facility] [address] [place] [id number] [address] [place] [phone] Nov, [facility] [address] [id number] [address] [place] [phone] Nov, [facility] [address] [facility] [id number] [address] [place] [phone] Oct, [facility] [address] [facility] [id number] [address] [place] [phone] Oct, [facility] [address] [facility] [id number] [address] [place] [phone] Oct, [facility] [address] [facility] [id number] [address] [place] [phone] Sep, [facility] [address] [facility] [id number] [address] [place] [address] Sep, Routine gynecological examin ation V72.31 ; Degenerative disc disease, lumbar M51.36 ; Fibromyalgia M79.7 ; Restless leg syndrome G25.81 ; Migraines G43.909 and Well woman exam Z01.419 [facility] [address] [facility] [id number] [address] [place] [phone] Sep, [facility] [address] [facility] [id number] [address] [place] [address] Aug, [facility] [address] [facility] [id number] [address] [place] [address] Aug, Migraines G43.909 ; Degenera tive disc disease, lumbar M51.36 ; Fibromyalgia M79.7 ; Restless leg syndrome G25.81 and HTN (hypertension) I10 [facility] [address] [facility] [id number] [address] [place] [phone] Aug, [facility] [address] [facility] [id number] [address] [place] [phone] Aug, [facility] [address] [facility] [id number] [address] [place] [phone] Jul, [facility] [address] [id number] [address] [place] [phone] Jul, [facility] [address] [id number] [address] [place] [phone] Jun, Fibromyalgia 729.1 ; Lumbago 724.2 ; Restless leg syndrome 333.94 ; Migraines 346.90 and Elevated blood pressure (not hypertension) 796.2 [facility] [address] [id number] [address] [place] [phone] May, Fibromyalgia 729.1 ; Nontoxi c uninodular goiter 241.0 ; Lumbago 724.2 ; Restless leg syndrome 333.94 and Migraines 346.90 [facility] [address] [id number] [address] [place] [phone] Feb, [facility] [address] [id number] [address] [place] [phone] Feb, [facility] [address] [id number] [address] [place] [phone] Jan, [facility] [address] [id number] [address] [place] [phone] Jan, [facility] [address] [id number] [address] [place] [phone] Jan, [facility] [address] [id number] [address] [place] [phone] Jan, [facility] [address] [id number] [address] [place] [phone] Jan, [facility] [address] [id number] [address] [place] [phone] Jan, [facility] [address] [facility] [id number] [address] [place] [phone] Jan, [facility] [address] [id number] [address] [place] [phone] Jan, [facility] [address] [id number] [address] [place] [phone] Dec, 2014 [facility] [address] [id number] [address] [place] [phone] Dec, 2014 [facility] [address] [id number] [address] [place] [phone] Dec, 2014 [facility] [address] [id number] [address] [place] [phone] Dec, 2014 [facility] [address] [id number] [address] [place] [phone] Dec, 2014 [facility] [address] [id number] [address] [place] [phone] Dec, 2014 [facility] [address] [id number] [address] [place] [phone] Dec, 2014 [facility] [address] [id number] [address] [place] [phone] Dec, [facility] [address] [id number] [address] [place] [phone] Dec, [facility] [address] [id number] [address] [place] [phone] Dec, [facility] [address] [id number] [address] [place] [phone] Dec, [facility] [address] [id number] [address] [place] [phone] Nov, [facility] [address] [id number] [address] [place] [phone] Nov, IMMUNIZATIONS No Known Immunizations SOCIAL HISTORY Never Assessed REASON FOR VISIT Diabetes., A1C, PDM.-awoods PLAN OF CARE Activity Details Follow Up 3 Months, prn Reason:CHM/DM w/ Kiley VITAL SIGNS Height 63 in 2018-08-08 Weight 166.0 lbs 2018-08-08 Temperature 98.2 degrees Fahrenheit 2018-08-08 Heart Rate 90 bpm 2018-08-08 Respiratory Rate 20 2018-08-08 BMI 29.40 kg/m2 2018-08-08 Blood pressure systolic 126 mmHg 2018-08-08 Blood pressure diastolic 74 mmHg 2018-08-08 MEDICATIONS Medication Instructions Dosage Frequency Start Date End Date Duration S tatus Crestor 10 MG Orally Once a day 4 tablets 24h Jan, Active Lisinopril 10 mg Orally Once a day 1 tablet 24h Active Propranolol HCl 10 mg Orally Twice a day 1 tablet 12h Apr, Active Cyclobenzaprine HCl 10 mg Orally Three times a day 1 tablet as need ed 8h 10 Dec, 2016 Oct, Active Requip 3 MG Orally once daily as needed 1 tablet 13 Aug, 2016 Active BuSpar 10 mg Orally 3 times a day 1 tablet 8h 15 Apr, 2018 90 days Active Gabapentin 400 mg Orally 3 times a day 1 capsule 8h Active Vitamin D 1000 UNIT Orally Once a day 5 tablets 24h Jan, Jan, 90 days Active Meloxicam 15 mg Orally Once a day 1 tablet 24h Jan, Active Hydrocodone-Acetaminophen 10-325 MG Orally every 6 hrs 1 tablet as needed 6h 13 Jul, 2018 Active MetFORMIN HCl ER 500 mg Orally twice a day 1 tabs twice daily 12h Nov, Active Glucocard Expression Test 1 subcutaneously 2 times a day test 2 times per day h Nov, Active Duloxetine HCl 30 MG Orally Once a day 1 capsule 24h 14 Jul, 2018 30 day(s) Active RESULTS No Results PROCEDURES Procedure Date Ordered Result Body Site EKG, TRACING (IN-HOUSE) 2018-08-08 N/A GLYCATED HEMOGLOBIN TEST Aug 08, 2018 VENIPUNCT, ROUTINE* Aug 08, 2018 COMPLETE CBC W/AUTO DIFF WBC Aug 08, 2018 ELECTROCARDIOGRAM, TRACING Aug 08, 2018 ASSAY OF MAGNESIUM Aug 08, 2018 COMPREHEN METABOLIC PANEL Aug 08, 2018 INSTRUCTIONS MEDICATIONS ADMINISTERED No Known Medications MEDICAL (GENERAL) HISTORY Type Description Date Medical History fibromyalgia Medical History degenerative disk disease Medical History degenerative arthritis Medical History Diabetes Type 2 Surgical History parital hysterectomy 1986 Surgical History several lymph nodes removed- neck Surgical History tonsillectomy Surgical History tubal ligation Hospitalization History surgery Hospitalization History childbirth Hospitalization History [facility] ER for migraine
--- OUTSIDE RECORDS SUMMARY | 2020-02-04 14:58 | XMS REPORT ---
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 Name Role Phone QUARLESSONYA Lamas Unavailable PROBLEMS Type Condition ICD9-CM Code RGM10-LY Code Onset Dates Condition S tatus SNOMED Code Problem Muscle spasms of both lower extremities M62.838 Active 075206609 Problem Chronic pain disorder G89.4 Active 908443808 Problem OAB (overactive bladder) N32.81 Activ e 886440004 Problem Angina at rest I20.8 Active 63561 8000 Problem Overweight (BMI 25.0-29.9) E66.3 Act ramana 025863400 Problem Type 2 diabetes mellitus wit h hyperglycemia, without long-term current use of insulin E11.65 Active 15551718 Problem Chronic, continuous use of opioids F11.90 Active 339166097 Problem Chronic tension-type headache, intractable G44.221 Active 900458218 Problem Type 2 diabetes mellitus wit h diabetic polyneuropathy, without long-term current use of insulin E11.42 Active 38495 006 Problem Vitamin D deficiency E55.9 Active 59491660 Problem Restless leg syndrome G25.81 Active 15013246 Problem HTN (hypertension) I10 Active 3 1864161 Problem Migraines G43.909 Active 98298404 Problem Degenerative disc disease, lumbar M51.36 Active 21717629 Problem Hyperlipemia E78.5 Active 4804253 4 Problem Fibromyalgia M79.7 Active 6960868 7 Problem Anxiety F41.9 Active 31659978 ALLERGIES No Information ENCOUNTERS Encounter Location Date Diagnosis [facility] [address] [facility] [id number] [address] [place] [phone] Oct, [facility] [address] [facility] [id number] [address] [place] [phone] Aug, [facility] [address] [facility] [id number] [address] [place] [address] 14 Jul, 2018 HTN (hypertension) I10 ; Typ e 2 diabetes mellitus with hyperglycemia, without long-term current use of insulin E11.65 ; Overweight (BMI 25.0-29.9) E66.3 ; Fibromyalgia M79.7 ; Restless leg syndrome G25.81 ; Chronic pain disorder G89.4 ; Hyperlipemia E78.5 and Angina at rest I20.8 [facility] [address] [facility] [id number] [address] [place] [id number] 13 Jul, 2018 [facility] [address] [facility] [id number] [address] [place] [id number] 11 Jul, 2018 Restless leg syndrome G25.81 [facility] [address] [facility] [id number] [address] [place] [phone] 28 Jun, 2018 Fibromyalgia M79.7 [place] [address] [facility] [id number] [address] [place] [id number] 16 Jun, 2018 Chronic pain disorder G89.4 [facility] [address] [facility] [id number] [address] [place] [phone] Jun, [place] [address] [facility] [id number] [address] [place] [address] May, [facility] [address] [facility] [id number] [address] [place] [address] May, Vitamin D deficiency E55.9 [facility] [address] [facility] [id number] [address] [place] [address] May, Vitamin D deficiency E55.[id number] [place] [phone] May, Chronic pain disorder G89.4 [facility] [address] [facility] [id number] [address] [place] [address] May, Chronic pain disorder G89.4 [facility] [address] [facility] [id number] [address] [place] [address] Apr, Chronic pain disorder G89.4 [facility] [address] [facility] [id number] [address] [place] [id number] 15 Apr, 2018 Type 2 diabetes mellitus [...] intractable G44.221 and Overweight (BMI 25.0-29.9) E66.3 [place] [address] [facility] [id number] [address] [place] [phone] March, Chronic pain disorder G89.4 [place] [address] [place] [id number] [address] [place] [address] March, Type 2 diabetes mellitus wit h diabetic polyneuropathy, without long-term current use of insulin E11.42 [place] [address] [facility] [id number] [address] [place] [phone] Feb, Chronic pain disorder G89.4 [place] [address] [facility] [id number] [address] [place] [address] Jan, [place] [address] [place] [id number] [address] [place] [address] Jan, Pharyngitis, unspecified vashti ology J02.9 ; Fibromyalgia M79.7 and Chronic pain disorder G89.4 [place] [address] [facility] [id number] [address] [place] [phone] Jan, [place] [address] [facility] [id number] [address] [place] [phone] Jan, [place] [address] [facility] [id number] [address] [place] [phone] Jan, [place] [address] [place] [id number] [address] [place] [address] Jan, Type 2 diabetes mellitus wit h diabetic polyneuropathy, without long-term current use of insulin E11.42 ; Type 2 diabetes mellitus with hyperglycemia, without long-term current use of insulin E11.65 ; Degenerative disc disease, lumbar M51.36 ; Fibromyalgia M79.7 ; Restless leg syndrome G25.81 ; HTN (hypertension) I10 ; Hyperlipemia E78.5 ; Anxiety F41.9 ; Migraines G43.909 and High risk medication use Z79.899 [place] [address] [address] Dec, Chronic pain disorder G89.4 [place] [address] [address] Nov, Chronic pain disorder G89.4 [place] [address] [address] Nov, [place] [address] [address] Nov, Type 2 diabetes mellitus wit h hyperglycemia, without long-term current use of insulin E11.65 ; HTN (hypertension) I10 ; Hyperlipemia E78.5 ; Restless leg syndrome G25.81 ; Fibromyalgia M79.7 ; Chronic tension-type headache, intractable G44.221 ; Migraines G43.909 ; Chronic pain disorder G89.4 and Overweight (BMI 25.0-29.9) E66.3 [place] [address] [place] [id number] [address] [place] [address] Nov, [place] [address] [address] Oct, Degenerative disc disease, l umbar M51.36 [place] [address] [address] Sep, Degenerative disc disease, l umbar M51.36 [place] [address] [place] [id number] [address] [place] [address] Sep, [place] [address] [address] Aug, Degenerative disc disease, l umbar M51.36 [place] [address] [address] Aug, Fall from height of greater than 3 feet W19.XXXA ; Hematoma of left hip, subsequent encounter S70.02XD ; Fibromyalgia M79.7 ; Muscle spasms of both lower extremities M62.838 ; Anxiety F41.9 ; Degenerative disc disease, lumbar M51.36 ; Chronic pain disorder G89.4 and Chronic, continuous use of opioids F11.90 [place] [address] [address] Jul, [place] [address] [address] Jul, Degenerative disc disease, l umbar M51.36 [place] [address] [address] Jun, Degenerative disc disease, l umbar M51.36 [place] [address] [address] May, Degenerative disc disease, l umbar M51.36 [place] [address] [address] May, [place] [address] [address] Apr, Degenerative disc disease, l umbar M51.36 [place] [address] [place] [id number] [address] [place] [address] Apr, Degenerative disc disease, l umbar M51.36 [place] [address] [place] [id number] [address] [place] [address] March, Degenerative disc disease, l umbar M51.36 and Fall (on) (from) other stairs and steps, initial encounter W10.8XXA [place] [address] [place] [id number] [address] [place] [address] March, [facility] [address] [facility] [id number] [address] [place] [address] March, [facility] [address] [facility] [id number] [address] [place] [phone] March, [facility] [address] [place] [id number] [address] [place] [address] March, [facility] [address] [facility] [id number] [address] [place] [address] Feb, [facility] [address] [place] [id number] [place] [address] Jan, Fibromyalgia M79.7 [facility] [address] [place] [id number] [address] [place] [address] Jan, [facility] [address] [place] [id number] [place] [address] Dec, Degenerative disc disease, l umbar M51.36 [facility] [address] [place] [id number] [address] [place] [address] Dec, [facility] [address] [place] [id number] [address] [place] [address] Nov, Degenerative disc disease, l umbar M51.36 ; Fibromyalgia M79.7 ; Restless leg syndrome G25.81 ; HTN (hypertension) I10 ; Hyperlipemia E78.5 ; Chronic tension-type headache, intractable G44.221 and OAB (overactive bladder) N32.81 [facility] [address] [facility] [id number] [address] [place] [address] Nov, [facility] [address] [place] [id number] [address] [place] [address] Oct, [facility] [address] [place] [id number] [address] [place] [address] Oct, [address] [id number] [place] [id number] Oct, [facility] [address] [place] [address] Sep, [facility] [address] [place] [id number] [address] [place] [address] Aug, [facility] [address] [place] [address] Aug, [facility] [address] [address] Aug, Degenerative disc disease, l umbar M51.36 [place] [address] [address] Aug, Degenerative disc disease, l umbar M51.36 ; Fibromyalgia M79.7 ; Migraines G43.909 ; Hyperlipemia E78.5 ; Muscle spasms of both lower extremities M62.838 ; Chronic tension-type headache, intractable G44.221 ; HTN (hypertension) I10 and Restless leg syndrome G25.81 [facility] [address] [place] [id number] [address] [place] [address] Jul, [place] [address] [address] Jul, [place] [address] [place] [id number] [address] [place] [address] Jul, [facility] [address] [address] Jun, Chronic tension-type headach e, intractable G44.221 ; Muscle spasms of both lower extremities M62.838 ; Fibromyalgia M79.7 ; Degenerative disc disease, lumbar M51.36 ; Restless leg syndrome G25.81 ; Migraines G43.909 ; Hyperlipemia E78.5 and Anxiety F41.9 [facility] [address] [place] [id number] [address] [place] [address] Jun, [place] [address] [id number] [address] [place] [address] Jun, [facility] [address] [facility] [id number] [address] [place] [address] Jun, [facility] [address] [id number] [address] [place] [phone] Jun, [facility] [address] [facility] [id number] [address] [place] [address] May, Sebaceous cyst L72.3 [facility] [address] [facility] [id number] [address] [place] [address] May, Low back pain M54.5 [facility] [address] [facility] [id number] [address] [place] [address] Apr, [facility] [address] [facility] [id number] [address] [place] [address] Apr, Fibromyalgia M79.7 [facility] [address] [facility] [id number] [address] [place] [address] Apr, Degenerative disc disease, l umbar M51.36 ; Fibromyalgia M79.7 ; Migraines G43.909 ; Hyperlipemia E78.5 ; Restless leg syndrome G25.81 ; Other intractable trigeminal autonomic cephalgia (TAC) G44.091 ; Secondary hypertension I15.9 and Anxiety F41.9 [facility] [address] [facility] [id number] [address] [place] [address] March, Other senior care (current) dr amie potter Z79.899 and HTN (hypertension) I10 [facility] [address] [facility] [id number] [address] [place] [address] March, Fibromyalgia M79.7 [facility] [address] [facility] [id number] [address] [place] [address] Feb, [facility] [address] [facility] [id number] [address] [place] [phone] Feb, [facility] [address] [facility] [id number] [address] [place] [address] Feb, [facility] [address] [facility] [id number] [address] [place] [address] Feb, Hyperlipemia E78.5 [facility] [address] [facility] [id number] [address] [place] [address] Feb, Migraines G43.909 ; Fibromya lgia M79.7 ; Degenerative disc disease, lumbar M51.36 ; Restless leg syndrome G25.81 ; HTN (hypertension) I10 and Tobacco abuse counseling Z71.6 [facility] [address] [facility] [id number] [address] [place] [address] Feb, [facility] [address] [facility] [id number] [address] [place] [address] Jan, [facility] [address] [place] [id number] [address] [place] [address] Jan, [facility] [address] [facility] [id number] [address] [place] [address] Dec, [facility] [address] [place] [id number] [address] [place] [address] Dec, Degenerative disc disease, l umbar M51.36 ; Restless leg syndrome G25.81 ; Migraines G43.909 ; HTN (hypertension) I10 ; Fibromyalgia M79.7 and Other senior care (current) drug therapy Z79.899 [facility] [address] [facility] [id number] [address] [place] [address] Dec, [facility] [address] [facility] [id number] [address] [place] [address] Nov, [facility] [address] [place] [id number] [address] [place] [address] Nov, [facility] [address] [facility] [id number] [address] [place] [address] Oct, [facility] [address] [facility] [id number] [address] [place] [address] Oct, [facility] [address] [facility] [id number] [address] [place] [address] Oct, [facility] [address] [facility] [id number] [address] [place] [address] Sep, [facility] [address] [place] [id number] [address] [place] [address] Sep, Routine gynecological examin ation V72.31 ; Degenerative disc disease, lumbar M51.36 ; Fibromyalgia M79.7 ; Restless leg syndrome G25.81 ; Migraines G43.909 and Well woman exam Z01.419 [facility] [address] [facility] [id number] [address] [place] [address] Sep, [facility] [address] [place] [id number] [address] [place] [address] Aug, [facility] [address] [place] [id number] [address] [place] [address] Aug, Migraines G43.909 ; Degenera tive disc disease, lumbar M51.36 ; Fibromyalgia M79.7 ; Restless leg syndrome G25.81 and HTN (hypertension) I10 [facility] [address] [place] [id number] [address] [place] [address] Aug, [facility] [address] [facility] [id number] [address] [place] [address] Aug, [facility] [address] [facility] [id number] [address] [place] [address] Jul, [facility] [address] [place] [id number] [address] [place] [address] Jul, [facility] [address] [facility] [id number] [address] [place] [address] Jun, Fibromyalgia 729.1 ; Lumbago 724.2 ; Restless leg syndrome 333.94 ; Migraines 346.90 and Elevated blood pressure (not hypertension) 796.2 [facility] [address] [id number] [address] [place] [address] May, Fibromyalgia 729.1 ; Nontoxi c uninodular goiter 241.0 ; Lumbago 724.2 ; Restless leg syndrome 333.94 and Migraines 346.90 [facility] [address] [id number] [address] [place] [address] 14 Feb, 2015 [facility] [address] [id number] [address] [place] [address] Feb, [facility] [address] [id number] [address] [place] [address] Jan, [facility] [address] [id number] [address] [place] [phone] Jan, [facility] [address] [facility] [id number] [address] [place] [address] Jan, [facility] [address] [id number] [address] [place] [address] Jan, [facility] [address] [facility] [id number] [address] [place] [address] Jan, [facility] [address] [facility] [id number] [address] [place] [address] Jan, [facility] [address] [facility] [id number] [address] [place] [phone] Jan, [facility] [address] [id number] [address] [place] [phone] Jan, [facility] [address] [facility] [id number] [address] [place] [id number] Dec, [facility] [address] [facility] [id number] [address] [place] [address] Dec, [facility] [address] [id number] [address] [place] [phone] Dec, [facility] [address] [id number] [address] [place] [address] Dec, [facility] [address] [id number] [address] [place] [phone] Dec, [facility] [address] [id number] [address] [place] [address] Dec, [facility] [address] [id number] [address] [place] [phone] Dec, [facility] [address] [id number] [address] [place] [id number] Dec, [facility] [address] [id number] [address] [place] [phone] Dec, [facility] [address] [id number] [address] [place] [address] Dec, [facility] [address] [id number] [address] [place] [id number] Dec, [facility] [address] [id number] [address] [place] [id number] Nov, [facility] [address] [id number] [address] [place] [address] Nov, IMMUNIZATIONS No Known Immunizations SOCIAL HISTORY Never Assessed REASON FOR VISIT Controlled refill PLAN OF CARE VITAL SIGNS MEDICATIONS Unknown [...]
--- OUTSIDE RECORDS SUMMARY | 2020-02-04 14:58 | XMS REPORT ---
Author Author Caitie QUARLES Organization [facility] Address [address] [place] [address] Care Team Providers Care Machine Molder Name Role Phone QUARLESSONYA Lamas Unavailable PROBLEMS Type Condition ICD9-CM Code FVS73-ZT Code Onset Dates Condition S tatus SNOMED Code Problem Muscle spasms of both lower extremities M62.838 Active 952361230 Problem Chronic pain disorder G89.4 Active 683075536 Problem OAB (overactive bladder) N32.81 Activ e 793365575 Problem Angina at rest I20.8 Active 84915 8000 Problem Overweight (BMI 25.0-29.9) E66.3 Act ramana 295828403 Problem Type 2 diabetes mellitus wit h hyperglycemia, without long-term current use of insulin E11.65 Active 25285753 Problem Chronic, continuous use of opioids F11.90 Active 592317133 Problem Chronic tension-type headache, intractable G44.221 Active 662287341 Problem Type 2 diabetes mellitus wit h diabetic polyneuropathy, without long-term current use of insulin E11.42 Active 55809 006 Problem Vitamin D deficiency E55.9 Active 10589392 Problem Restless leg syndrome G25.81 Active 63680038 Problem HTN (hypertension) I10 Active 3 2849426 Problem Migraines G43.909 Active 38727316 Problem Degenerative disc disease, lumbar M51.36 Active 55314219 Problem Hyperlipemia E78.5 Active 9490661 4 Problem Fibromyalgia M79.7 Active 0720235 7 Problem Anxiety F41.9 Active 28301219 ALLERGIES No Information ENCOUNTERS Encounter Location Date Diagnosis [facility] [address] [facility] [id number] [address] [place] [phone] Oct, [facility] [address] [facility] [id number] [address] [place] [phone] Oct, [facility] [address] [facility] [id number] [address] [place] [phone] Aug, [facility] [address] [facility] [id number] [address] [place] [phone] Aug, [facility] [address] [facility] [id number] [address] [place] [phone] 14 Jul, 2018 HTN (hypertension) I10 ; Typ e 2 diabetes mellitus with hyperglycemia, without long-term current use of insulin E11.65 ; Overweight (BMI 25.0-29.9) E66.3 ; Fibromyalgia M79.7 ; Restless leg syndrome G25.81 ; Chronic pain disorder G89.4 ; Hyperlipemia E78.5 and Angina at rest I20.8 [facility] [address] [facility] [id number] [address] [place] [phone] 13 Jul, 2018 [place] [address] [facility] [id number] [address] [place] [phone] 11 Jul, 2018 Restless leg syndrome G25.81 [facility] [address] [facility] [id number] [address] [place] [phone] Jun, Fibromyalgia M79.7 [facility] [address] [facility] [id number] [address] [place] [phone] 16 Jun, 2018 Chronic pain disorder G89.4 [facility] [address] [facility] [id number] [address] [place] [phone] Jun, [facility] [address] [facility] [id number] [address] [place] [phone] May, [facility] [address] [facility] [id number] [address] [place] [phone] May, Vitamin D deficiency E55.9 [facility] [address] [facility] [id number] [address] [place] [phone] May, Vitamin D deficiency E55.9 [place] [address] [id number] [place] [phone] May, Chronic pain disorder G89.4 [facility] [address] [place] [id number] [address] [place] [phone] May, Chronic pain disorder G89.4 [facility] [address] [address] Apr, Chronic pain disorder G89.4 [facility] [address] [address] Apr, Type 2 diabetes mellitus wit h diabetic polyneuropathy, without long-term current use of insulin E11.42 ; HTN (hypertension) I10 ; Hyperlipemia E78.5 ; Fibromyalgia M79.7 ; Degenerative disc disease, lumbar M51.36 ; Chronic pain disorder G89.4 ; Chronic, continuous use of opioids F11.90 ; Vitamin D deficiency E55.9 ; Anxiety F41.9 ; Chronic tension-type headache, intractable G44.221 and Overweight (BMI 25.0-29.9) E66.3 [place] [address] [address] March, Chronic pain disorder G89.4 [place] [address] [address] March, Type 2 diabetes mellitus wit h diabetic polyneuropathy, without long-term current use of insulin E11.42 [place] [address] [address] Feb, Chronic pain disorder G89.4 [place] [address] [address] Jan, [place] [address] [address] Jan, Pharyngitis, unspecified vashti ology J02.9 ; Fibromyalgia M79.7 and Chronic pain disorder G89.4 [facility] [address] [place] [id number] [address] [place] [phone] Jan, [place] [address] [address] Jan, [place] [address] [address] Jan, [place] [address] [address] Jan, Type 2 diabetes mellitus wit h diabetic polyneuropathy, without long-term current use of insulin E11.42 ; Type 2 diabetes mellitus with hyperglycemia, without long-term current use of insulin E11.65 ; Degenerative disc disease, lumbar M51.36 ; Fibromyalgia M79.7 ; Restless leg syndrome G25.81 ; HTN (hypertension) I10 ; Hyperlipemia E78.5 ; Anxiety F41.9 ; Migraines G43.909 and High risk medication use Z79.899 [place] [address] [address] Dec, Chronic pain disorder G89.[address] [address] Nov, Chronic pain disorder G89.4 [place] [address] [address] Nov, [place] [address] [address] Nov, Type 2 diabetes mellitus wit h hyperglycemia, without long-term current use of insulin E11.65 ; HTN (hypertension) I10 ; Hyperlipemia E78.5 ; Restless leg syndrome G25.81 ; Fibromyalgia M79.7 ; Chronic tension-type headache, intractable G44.221 ; Migraines G43.909 ; Chronic pain disorder G89.4 and Overweight (BMI 25.0-29.9) E66.3 [place] [address] [address] Nov, [address] [address] Oct, Degenerative disc disease, l umbar M51.36 [place] [address] [address] Sep, Degenerative disc disease, l umbar M51.36 [place] [address] [place] [id number] [address] [place] [phone] Sep, [facility] [address] [place] [id number] [address] [place] [phone] Aug, Degenerative disc disease, l umbar M51.36 [place] [address] [address] [place] [id number] [place] [address] Aug, Fall from height of greater than 3 feet W19.XXXA ; Hematoma of left hip, subsequent encounter S70.02XD ; Fibromyalgia M79.7 ; Muscle spasms of both lower extremities M62.838 ; Anxiety F41.9 ; Degenerative disc disease, lumbar M51.36 ; Chronic pain disorder G89.4 and Chronic, continuous use of opioids F11.90 [place] [id number] [place] [address] Jul, [place] [address] [place] [id number] [address] [place] [phone] Jul, Degenerative disc disease, l umbar M51.36 [place] [address] [place] [id number] [address] [place] [address] Jun, Degenerative disc disease, l umbar M51.36 [place] [address] [place] [id number] [address] [place] [phone] May, Degenerative disc disease, l umbar M51.36 [place] [address] [facility] [id number] [address] [place] [phone] May, [place] [address] [place] [id number] [address] [place] [address] Apr, Degenerative disc disease, l umbar M51.36 [place] [address] [place] [id number] [address] [place] [address] Apr, Degenerative disc disease, l umbar M51.36 [place] [address] [address] [place] [id number] [address] [place] [address] March, Degenerative disc disease, l umbar M51.36 and Fall (on) (from) other stairs and steps, initial encounter W10.8XXA [facility] [address] [facility] [id number] [address] [place] [phone] March, [facility] [address] [facility] [id number] [address] [place] [phone] March, [facility] [address] [facility] [id number] [address] [place] [phone] March, [facility] [address] [place] [id number] [address] [place] [phone] March, [facility] [address] [place] [id number] [address] [place] [phone] Feb, [facility] [address] [place] [id number] [address] [place] [phone] Jan, Fibromyalgia M79.7 [facility] [address] [place] [id number] [address] [place] [address] Jan, [facility] [address] [place] [id number] [address] [place] [id number] Dec, Degenerative disc disease, l umbar M51.36 [facility] [address] [place] [id number] [address] [place] [phone] Dec, [facility] [address] [place] [id number] [address] [place] [address] Nov, Degenerative disc disease, l umbar M51.36 ; Fibromyalgia M79.7 ; Restless leg syndrome G25.81 ; HTN (hypertension) I10 ; Hyperlipemia E78.5 ; Chronic tension-type headache, intractable G44.221 and OAB (overactive bladder) N32.81 [facility] [address] [place] [id number] [address] [place] [phone] Nov, [facility] [address] [place] [id number] [address] [place] [phone] Oct, [facility] [address] [facility] [id number] [address] [place] [phone] Oct, [facility] [address] [id number] CHARYDavid [id number] Oct, [facility] [address] [facility] [id number] [address] [place] [phone] Sep, [facility] [address] [facility] [id number] [address] [place] [phone] Aug, [facility] [address] [facility] [id number] [address] [place] [phone] Aug, [facility] [address] [facility] [id number] [address] [place] [phone] Aug, Degenerative disc disease, l umbar M51.36 [facility] [address] [facility] [id number] [address] [place] [phone] Aug, Degenerative disc disease, l umbar M51.36 ; Fibromyalgia M79.7 ; Migraines G43.909 ; Hyperlipemia E78.5 ; Muscle spasms of both lower extremities M62.838 ; Chronic tension-type headache, intractable G44.221 ; HTN (hypertension) I10 and Restless leg syndrome G25.81 [facility] [address] [facility] [id number] [address] [place] [phone] Jul, [facility] [address] [facility] [id number] [address] [place] [id number] Jul, [facility] [address] [facility] [id number] [address] [place] [phone] Jul, [facility] [address] [facility] [id number] [address] [place] [address] Jun, Chronic tension-type headach e, intractable G44.221 ; Muscle spasms of both lower extremities M62.838 ; Fibromyalgia M79.7 ; Degenerative disc disease, lumbar M51.36 ; Restless leg syndrome G25.81 ; Migraines G43.909 ; Hyperlipemia E78.5 and Anxiety F41.9 [facility] [address] [id number] [address] [place] [phone] Jun, [facility] [address] [id number] [address] [place] [phone] Jun, [facility] [address] [facility] [id number] [address] [place] [phone] Jun, [facility] [address] [id number] [address] [place] [phone] Jun, [facility] [address] [facility] [id number] [address] [place] [phone] May, Sebaceous cyst L72.3 [facility] [address] [facility] [id number] [address] [place] [phone] May, Low back pain M54.5 [facility] [address] [facility] [id number] [address] [place] [phone] Apr, [facility] [address] [facility] [id number] [address] [place] [phone] Apr, Fibromyalgia M79.7 [facility] [address] [facility] [id number] [address] [place] [phone] Apr, Degenerative disc disease, l umbar M51.36 ; Fibromyalgia M79.7 ; Migraines G43.909 ; Hyperlipemia E78.5 ; Restless leg syndrome G25.81 ; Other intractable trigeminal autonomic cephalgia (TAC) G44.091 ; Secondary hypertension I15.9 and Anxiety F41.9 [facility] [address] [facility] [id number] [address] [place] [phone] March, Other [place] (current[facility] dr amie potter Z79.899 and HTN (hypertension) I10 [facility] [address] [facility] [id number] [address] [place] [address] March, Fibromyalgia M79.7 [place] [address] [address] [facility] [id number] [address] [place] [phone] Feb, [facility] [address] [facility] [id number] [address] [place] [phone] Feb, [facility] [address] [facility] [id number] [address] [place] [phone] Feb, [facility] [address] [facility] [id number] [address] [place] [phone] Feb, Hyperlipemia E78.5 [facility] [address] [facility] [id number] [address] [place] [address] Feb, Migraines G43.909 ; Fibromya lgia M79.7 ; Degenerative disc disease, lumbar M51.36 ; Restless leg syndrome G25.81 ; HTN (hypertension) I10 and Tobacco abuse counseling Z71.6 [facility] [address] [place] [id number] [address] [place] [phone] Feb, [facility] [address] [facility] [id number] [address] [place] [phone] Jan, [facility] [address] [place] [id number] [address] [place] [phone] Jan, [facility] [address] [facility] [id number] [address] [place] [phone] Dec, [facility] [address] [place] [id number] [address] [place] [address] Dec, Degenerative disc disease, l umbar M51.36 ; Restless leg syndrome G25.81 ; Migraines G43.909 ; HTN (hypertension) I10 ; Fibromyalgia M79.7 and 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 [facility] [address] [facility] [id number] [address] [place] [phone] Dec, [facility] [address] [facility] [id number] [address] [place] [phone] Nov, [facility] [address] [facility] [id number] [address] [place] [phone] Nov, [facility] [address] [facility] [id number] [address] [place] [phone] Oct, [facility] [address] [facility] [id number] [address] [place] [phone] Oct, [facility] [address] [facility] [id number] [address] [place] [phone] Oct, [facility] [address] [facility] [id number] [address] [place] [phone] Sep, [facility] [address] [facility] [id number] [address] [place] [id number] Sep, Routine gynecological examin ation V72.31 ; Degenerative disc disease, lumbar M51.36 ; Fibromyalgia M79.7 ; Restless leg syndrome G25.81 ; Migraines G43.909 and Well woman exam Z01.419 [facility] [address] [place] [id number] [address] [place] [phone] Sep, [facility] [address] [facility] [id number] [address] [place] [phone] Aug, [facility] [address] [facility] [id number] [address] [place] [address] Aug, Migraines G43.909 ; Degenera tive disc disease, lumbar M51.36 ; Fibromyalgia M79.7 ; Restless leg syndrome G25.81 and HTN (hypertension) I10 [facility] [address] [facility] [id number] [address] [place] [address] Aug, [facility] [address] [place] [id number] [address] [place] [phone] Aug, [facility] [address] [facility] [id number] [address] [place] [phone] Jul, [facility] [address] [place] [id number] [address] [place] [phone] Jul, [facility] [address] [id number] [address] [place] [address] Jun, Fibromyalgia 729.1 ; Lumbago 724.2 ; Restless leg syndrome 333.94 ; Migraines 346.90 and Elevated blood pressure (not hypertension) 796.2 [facility] [address] [id number] [address] [place] [address] May, Fibromyalgia 729.1 ; Nontoxi c uninodular goiter 241.0 ; Lumbago 724.2 ; Restless leg syndrome 333.94 and Migraines 346.90 [facility] [address] [id number] [address] [place] [phone] Feb, [facility] [address] [id number] [address] [place] [phone] Feb, [facility] [address] [id number] [address] [place] [phone] Jan, [facility] [address] [id number] [address] [place] [phone] Jan, [facility] [address] [id number] [address] [place] [phone] Jan, [facility] [address] [id number] [address] [place] [id number] Jan, [facility] [address] [id number] [address] [place] [phone] Jan, [facility] [address] [id number] [address] [place] [phone] Jan, [facility] [address] [id number] [address] [place] [phone] Jan, [facility] [address] [id number] [address] [place] [phone] Jan, [facility] [address] [id number] [address] [place] [phone] Dec, [facility] [address] [id number] [address] [place] [phone] Dec, [facility] [address] [id number] [address] [place] [phone] Dec, [facility] [address] [id number] [address] [place] [phone] Dec, [facility] [address] [id number] [address] [place] [phone] Dec, [facility] [address] [id number] [address] [place] [phone] Dec, [facility] [address] [id number] [address] [place] [phone] Dec, [facility] [address] [id number] [address] [place] [id number] Dec, [facility] [address] [id number] [address] [place] [phone] Dec, [facility] [address] [id number] [address] [place] [phone] Dec, [facility] [address] [id number] [address] [place] [id number] Dec, [facility] [address] [id number] [address] [place] [phone] Nov, [facility] [address] [id number] [address] [place] [phone] Nov, IMMUNIZATIONS No Known Immunizations SOCIAL HISTORY Never Assessed REASON FOR VISIT Hydrocodon 08/07 PLAN OF CARE VITAL SIGNS MEDICATIONS Medication Instructions Dosage Frequency Start Date End Date Duration S chago Hydrocodone-Acetaminophen 10-325 MG Orally every 6 hrs 1 tablet as needed 6h Jul, 28 Active RESULTS No Results PROCEDURES No Known procedures INSTRUCTIONS MEDICATIONS ADMINISTERED No Known Medications MEDICAL (GENERAL) HISTORY Type Description Date Medical History fibromyalgia Medical History degenerative disk disease Medical History degenerative arthritis Medical History Diabetes Type 2 Surgical History parital hysterectomy 1987 Surgical History several lymph nodes removed- neck Surgical History tonsillectomy Surgical History tubal ligation Hospitalization History surgery Hospitalization History childbirth Hospitalization History [facility]
--- OUTSIDE RECORDS SUMMARY | 2020-02-04 14:59 | XMS REPORT ---
Author Author Caitie QUARLES Organization [facility] Address [address] [place] [address] Care Team Providers Care Rn Diabetes Educator Name Role Phone QUARLESSONYA Lamas Unavailable PROBLEMS Type Condition ICD9-CM Code BZG02-DO Code Onset Dates Condition S tatus SNOMED Code Problem Muscle spasms of both lower extremities M62.838 Active 519006667 Problem Chronic pain disorder G89.4 Active 140871534 Problem OAB (overactive bladder) N32.81 Activ e 399131237 Problem Angina at rest I20.8 Active 27166 8000 Problem Overweight (BMI 25.0-29.9) E66.3 Act ramana 235965148 Problem Type 2 diabetes mellitus wit h hyperglycemia, without long-term current use of insulin E11.65 Active 64152279 Problem Chronic, continuous use of opioids F11.90 Active 468492106 Problem Chronic tension-type headache, intractable G44.221 Active 501909361 Problem Type 2 diabetes mellitus wit h diabetic polyneuropathy, without long-term current use of insulin E11.42 Active 38138 006 Problem Vitamin D deficiency E55.9 Active 82899470 Problem Restless leg syndrome G25.81 Active 49468381 Problem HTN (hypertension) I10 Active 3 1807592 Problem Migraines G43.909 Active 74944345 Problem Degenerative disc disease, lumbar M51.36 Active 02749034 Problem Hyperlipemia E78.5 Active 2709743 4 Problem Fibromyalgia M79.7 Active 8853166 7 Problem Anxiety F41.9 Active 61842174 ALLERGIES No Information ENCOUNTERS Encounter Location Date Diagnosis [facility] [address] [facility] [id number] [address] [place] [address] Oct, [facility] [address] [facility] [id number] [address] [place] [address] Aug, [facility] [address] [facility] [id number] [address] [place] [address] 14 Jul, 2018 HTN (hypertension) I10 ; Typ e 2 diabetes mellitus with hyperglycemia, without long-term current use of insulin E11.65 ; Overweight (BMI 25.0-29.9) E66.3 ; Fibromyalgia M79.7 ; Restless leg syndrome G25.81 ; Chronic pain disorder G89.4 ; Hyperlipemia E78.5 and Angina at rest I20.8 [facility] [address] [facility] [id number] [address] [place] [address] 13 Jul, 2018 [facility] [address] [facility] [id number] [address] [place] [phone] 11 Jul, 2018 Restless leg syndrome G25.81 [facility] [address] [facility] [id number] [address] [place] [phone] 28 Jun, 2018 Fibromyalgia M79.7 [place] [address] [facility] [id number] [address] [place] [address] 16 Jun, 2018 Chronic pain disorder G89.4 [facility] [address] [facility] [id number] [address] [place] [address] Jun, [place] [address] [facility] [id number] [address] [place] [address] May, [facility] [address] [facility] [id number] [address] [place] [address] May, Vitamin D deficiency E55.9 [facility] [address] [facility] [id number] [address] [place] [address] May, Vitamin D deficiency E55.[id number] [place] [address] May, Chronic pain disorder G89.4 [facility] [address] [facility] [id number] [address] [place] [address] May, Chronic pain disorder G89.4 [facility] [address] [facility] [id number] [address] [place] [address] Apr, Chronic pain disorder G89.4 [facility] [address] [facility] [id number] [address] [place] [address] 15 Apr, 2018 Type 2 diabetes mellitus [...] intractable G44.221 and Overweight (BMI 25.0-29.9) E66.3 [place] [address] [facility] [id number] [address] [place] [address] March, Chronic pain disorder G89.4 [place] [address] [place] [id number] [address] [place] [address] March, Type 2 diabetes mellitus wit h diabetic polyneuropathy, without long-term current use of insulin E11.42 [place] [address] [facility] [id number] [address] [place] [address] Feb, Chronic pain disorder G89.4 [place] [address] [facility] [id number] [address] [place] [address] Jan, [place] [address] [place] [id number] [address] [place] [address] Jan, Pharyngitis, unspecified vashti ology J02.9 ; Fibromyalgia M79.7 and Chronic pain disorder G89.4 [place] [address] [facility] [id number] [address] [place] [address] Jan, [place] [address] [facility] [id number] [address] [place] [address] Jan, [place] [address] [facility] [id number] [address] [place] [address] Jan, [place] [address] [place] [id number] [address] [place] [address] Jan, Type 2 diabetes mellitus wit h diabetic polyneuropathy, without long-term current use of insulin E11.42 ; Type 2 diabetes mellitus with hyperglycemia, without long-term current use of insulin E11.65 ; Degenerative disc disease, lumbar M51.36 ; Fibromyalgia M79.7 ; Restless leg syndrome G25.81 ; HTN (hypertension) I10 ; Hyperlipemia E78.5 ; Anxiety F41.9 ; Migraines G43.909 and High risk medication use Z79.899 [place] [address] [address] Dec, Chronic pain disorder G89.4 [place] [address] [address] Nov, Chronic pain disorder G89.4 [place] [address] [address] Nov, [place] [address] [address] Nov, Type 2 diabetes mellitus wit h hyperglycemia, without long-term current use of insulin E11.65 ; HTN (hypertension) I10 ; Hyperlipemia E78.5 ; Restless leg syndrome G25.81 ; Fibromyalgia M79.7 ; Chronic tension-type headache, intractable G44.221 ; Migraines G43.909 ; Chronic pain disorder G89.4 and Overweight (BMI 25.0-29.9) E66.3 [place] [address] [place] [id number] [address] [place] [address] Nov, [place] [address] [address] Oct, Degenerative disc disease, l umbar M51.36 [place] [address] [address] Sep, Degenerative disc disease, l umbar M51.36 [place] [address] [place] [id number] [address] [place] [address] Sep, [place] [address] [address] Aug, Degenerative disc disease, l umbar M51.36 [place] [address] [address] Aug, Fall from height of greater than 3 feet W19.XXXA ; Hematoma of left hip, subsequent encounter S70.02XD ; Fibromyalgia M79.7 ; Muscle spasms of both lower extremities M62.838 ; Anxiety F41.9 ; Degenerative disc disease, lumbar M51.36 ; Chronic pain disorder G89.4 and Chronic, continuous use of opioids F11.90 [place] [address] [address] Jul, [place] [address] [address] Jul, Degenerative disc disease, l umbar M51.36 [place] [address] [address] Jun, Degenerative disc disease, l umbar M51.36 [place] [address] [address] May, Degenerative disc disease, l umbar M51.36 [place] [address] [address] May, [place] [address] [address] Apr, Degenerative disc disease, l umbar M51.36 [place] [address] [place] [id number] [address] [place] [address] Apr, Degenerative disc disease, l umbar M51.36 [place] [address] [place] [id number] [address] [place] [address] March, Degenerative disc disease, l umbar M51.36 and Fall (on) (from) other stairs and steps, initial encounter W10.8XXA [place] [address] [place] [id number] [address] [place] [address] March, [facility] [address] [facility] [id number] [address] [place] [address] March, [facility] [address] [facility] [id number] [address] [place] [address] March, [facility] [address] [place] [id number] [address] [place] [address] March, [facility] [address] [facility] [id number] [address] [place] [address] Feb, [facility] [address] [place] [id number] [place] [address] Jan, Fibromyalgia M79.7 [facility] [address] [place] [id number] [address] [place] [address] Jan, [facility] [address] [place] [id number] [place] [address] Dec, Degenerative disc disease, l umbar M51.36 [facility] [address] [place] [id number] [address] [place] [address] Dec, [facility] [address] [place] [id number] [address] [place] [address] Nov, Degenerative disc disease, l umbar M51.36 ; Fibromyalgia M79.7 ; Restless leg syndrome G25.81 ; HTN (hypertension) I10 ; Hyperlipemia E78.5 ; Chronic tension-type headache, intractable G44.221 and OAB (overactive bladder) N32.81 [facility] [address] [facility] [id number] [address] [place] [address] Nov, [facility] [address] [place] [id number] [address] [place] [address] Oct, [facility] [address] [place] [id number] [address] [place] [address] Oct, [address] [id number] [place] [id number] Oct, [facility] [address] [place] [address] Sep, [facility] [address] [place] [id number] [address] [place] [address] Aug, [facility] [address] [place] [address] Aug, [facility] [address] [address] Aug, Degenerative disc disease, l umbar M51.36 [place] [address] [address] Aug, Degenerative disc disease, l umbar M51.36 ; Fibromyalgia M79.7 ; Migraines G43.909 ; Hyperlipemia E78.5 ; Muscle spasms of both lower extremities M62.838 ; Chronic tension-type headache, intractable G44.221 ; HTN (hypertension) I10 and Restless leg syndrome G25.81 [facility] [address] [place] [id number] [address] [place] [address] Jul, [place] [address] [address] Jul, [place] [address] [place] [id number] [address] [place] [address] Jul, [facility] [address] [address] Jun, Chronic tension-type headach e, intractable G44.221 ; Muscle spasms of both lower extremities M62.838 ; Fibromyalgia M79.7 ; Degenerative disc disease, lumbar M51.36 ; Restless leg syndrome G25.81 ; Migraines G43.909 ; Hyperlipemia E78.5 and Anxiety F41.9 [facility] [address] [place] [id number] [address] [place] [address] Jun, [place] [address] [id number] [address] [place] [address] Jun, [facility] [address] [facility] [id number] [address] [place] [address] Jun, [facility] [address] [id number] [address] [place] [address] Jun, [facility] [address] [facility] [id number] [address] [place] [address] May, Sebaceous cyst L72.3 [facility] [address] [facility] [id number] [address] [place] [address] May, Low back pain M54.5 [facility] [address] [facility] [id number] [address] [place] [address] Apr, [facility] [address] [facility] [id number] [address] [place] [address] Apr, Fibromyalgia M79.7 [facility] [address] [facility] [id number] [address] [place] [address] Apr, Degenerative disc disease, l umbar M51.36 ; Fibromyalgia M79.7 ; Migraines G43.909 ; Hyperlipemia E78.5 ; Restless leg syndrome G25.81 ; Other intractable trigeminal autonomic cephalgia (TAC) G44.091 ; Secondary hypertension I15.9 and Anxiety F41.9 [facility] [address] [facility] [id number] [address] [place] [address] March, Other care home (current) dr amie potter Z79.899 and HTN (hypertension) I10 [facility] [address] [facility] [id number] [address] [place] [address] March, Fibromyalgia M79.7 [facility] [address] [facility] [id number] [address] [place] [address] Feb, [facility] [address] [facility] [id number] [address] [place] [address] Feb, [facility] [address] [facility] [id number] [address] [place] [address] Feb, [facility] [address] [facility] [id number] [address] [place] [address] Feb, Hyperlipemia E78.5 [facility] [address] [facility] [id number] [address] [place] [address] Feb, Migraines G43.909 ; Fibromya lgia M79.7 ; Degenerative disc disease, lumbar M51.36 ; Restless leg syndrome G25.81 ; HTN (hypertension) I10 and Tobacco abuse counseling Z71.6 [facility] [address] [facility] [id number] [address] [place] [address] Feb, [facility] [address] [facility] [id number] [address] [place] [address] Jan, [facility] [address] [place] [id number] [address] [place] [address] Jan, [facility] [address] [facility] [id number] [address] [place] [address] Dec, [facility] [address] [place] [id number] [address] [place] [address] Dec, Degenerative disc disease, l umbar M51.36 ; Restless leg syndrome G25.81 ; Migraines G43.909 ; HTN (hypertension) I10 ; Fibromyalgia M79.7 and Other care home (current) drug therapy Z79.899 [facility] [address] [facility] [id number] [address] [place] [address] Dec, [facility] [address] [facility] [id number] [address] [place] [address] Nov, [facility] [address] [place] [id number] [address] [place] [address] Nov, [facility] [address] [facility] [id number] [address] [place] [address] Oct, [facility] [address] [facility] [id number] [address] [place] [address] Oct, [facility] [address] [facility] [id number] [address] [place] [address] Oct, [facility] [address] [facility] [id number] [address] [place] [address] Sep, [facility] [address] [place] [id number] [address] [place] [address] Sep, Routine gynecological examin ation V72.31 ; Degenerative disc disease, lumbar M51.36 ; Fibromyalgia M79.7 ; Restless leg syndrome G25.81 ; Migraines G43.909 and Well woman exam Z01.419 [facility] [address] [facility] [id number] [address] [place] [address] Sep, [facility] [address] [place] [id number] [address] [place] [address] Aug, [facility] [address] [place] [id number] [address] [place] [address] Aug, Migraines G43.909 ; Degenera tive disc disease, lumbar M51.36 ; Fibromyalgia M79.7 ; Restless leg syndrome G25.81 and HTN (hypertension) I10 [facility] [address] [place] [id number] [address] [place] [address] Aug, [facility] [address] [facility] [id number] [address] [place] [address] Aug, [facility] [address] [facility] [id number] [address] [place] [address] Jul, [facility] [address] [place] [id number] [address] [place] [address] Jul, [facility] [address] [facility] [id number] [address] [place] [address] Jun, Fibromyalgia 729.1 ; Lumbago 724.2 ; Restless leg syndrome 333.94 ; Migraines 346.90 and Elevated blood pressure (not hypertension) 796.2 [facility] [address] [id number] [address] [place] [address] May, Fibromyalgia 729.1 ; Nontoxi c uninodular goiter 241.0 ; Lumbago 724.2 ; Restless leg syndrome 333.94 and Migraines 346.90 [facility] [address] [id number] [address] [place] [address] 14 Feb, 2015 [facility] [address] [id number] [address] [place] [address] Feb, [facility] [address] [id number] [address] [place] [address] Jan, [facility] [address] [id number] [address] [place] [address] Jan, [facility] [address] [facility] [id number] [address] [place] [address] Jan, [facility] [address] [id number] [address] [place] [address] Jan, [facility] [address] [facility] [id number] [address] [place] [address] Jan, [facility] [address] [facility] [id number] [address] [place] [address] Jan, [facility] [address] [facility] [id number] [address] [place] [address] Jan, [facility] [address] [id number] [address] [place] [address] Jan, [facility] [address] [facility] [id number] [address] [place] [address] Dec, [facility] [address] [facility] [id number] [address] [place] [address] Dec, [facility] [address] [id number] [address] [place] [address] Dec, [facility] [address] [id number] [address] [place] [address] Dec, [facility] [address] [id number] [address] [place] [address] Dec, [facility] [address] [id number] [address] [place] [address] Dec, 2014 [facility] [address] [id number] [address] [place] [address] Dec, 2014 [facility] [address] [id number] [address] [place] [address] Dec, [facility] [address] [id number] [address] [place] [address] Dec, [facility] [address] [id number] [address] [place] [address] Dec, 2014 [facility] [address] [id number] [address] [place] [address] Dec, [facility] [address] [id number] [address] [place] [address] Nov, [facility] [address] [id number] [address] [place] [address] Nov, IMMUNIZATIONS No Known Immunizations SOCIAL HISTORY Never Assessed REASON FOR VISIT Hydrocodone 07/10 PLAN OF CARE VITAL SIGNS MEDICATIONS Medication Instructions Dosage Frequency Start Date End Date Duration S tatus Hydrocodone-Acetaminophen 10-325 MG Orally every 6 hrs 1 tablet as needed 6h Jun, 28 days Active RESULTS No Results PROCEDURES [...] History surgery Hospitalization History childbirth Hospitalization History [facility] ER for migraine
--- OUTSIDE RECORDS SUMMARY | 2020-02-04 14:59 | XMS REPORT ---
Author Author WILLAM Caitielinda HASSAN Organization [facility] Address [address] [place] [address] Care Team Providers Care Safety Deposit Clerk Name Role Phone QUARLESSONYA Lamas Unavailable PROBLEMS Type Condition ICD9-CM Code ZYE07-YE Code Onset Dates Condition S tatus SNOMED Code Problem Anxiety F41.9 Active 51714800 Problem OAB (overactive bladder) N32.81 Activ e 622320032 Problem Muscle spasms of both lower extremities M62.838 Active 601725250 Problem Chronic tension-type headache, intractable G44.221 Active 304647506 Problem Overweight (BMI 25.0-29.9) E66.3 Act ramana 128417348 Problem Chronic, continuous use of opioids F11.90 Active 474951642 Problem Chronic pain disorder G89.4 Active 832628941 Problem Type 2 diabetes mellitus wit h diabetic polyneuropathy, without long-term current use of insulin E11.42 Active 57743 006 Problem Type 2 diabetes mellitus wit h hyperglycemia, without long-term current use of insulin E11.65 Active 09019073 Problem Vitamin D deficiency E55.9 Active 72998995 Problem Fibromyalgia M79.7 Active 5898512 7 Problem HTN (hypertension) I10 Active 3 6156820 Problem Restless leg syndrome G25.81 Active 61697872 Problem Migraines G43.909 Active 18768545 Problem Degenerative disc disease, lumbar M51.36 Active 97613240 Problem Hyperlipemia E78.5 Active 8406119 4 ALLERGIES No Information ENCOUNTERS Encounter Location Date Diagnosis [facility] [address] [facility] [id number] [address] [place] [phone] Jul, [facility] [address] [facility] [id number] [address] [place] [phone] Jun, Fibromyalgia M79.7 [facility] [address] [facility] [id number] [address] [place] [phone] Jun, Chronic pain disorder G89.4 [facility] [address] [facility] [id number] [address] [place] [phone] Jun, [facility] [address] [facility] [id number] [address] [place] [phone] May, [facility] [address] [facility] [id number] [address] [place] [phone] May, Vitamin D deficiency E55.9 [place] [address] [facility] [id number] [address] [place] [phone] May, Vitamin D deficiency E55.[id number] [place] [address] May, Chronic pain disorder G89.4 [place] [address] [facility] [id number] [address] [place] [address] May, Chronic pain disorder G89.4 [place] [address] [place] [id number] [address] [place] [phone] Apr, Chronic pain disorder G89.4 [place] [address] [facility] [id number] [address] [place] [address] Apr, Type 2 diabetes mellitus wit h [...] and Overweight (BMI 25.0-29.9) E66.3 [place] [address] [facility] [id number] [address] [place] [address] March, Chronic pain disorder G89.4 [place] [address] [facility] [id number] [address] [place] [phone] March, Type 2 diabetes mellitus wit h diabetic polyneuropathy, without long-term current use of insulin E11.42 [facility] [address] [facility] [id number] [address] [place] [address] Feb, Chronic pain disorder G89.4 [facility] [address] [facility] [id number] [address] [place] [phone] Jan, [facility] [address] [facility] [id number] [address] [place] [phone] Jan, Pharyngitis, unspecified vashti ology J02.9 ; Fibromyalgia M79.7 and Chronic pain disorder G89.4 [facility] [address] [facility] [id number] [address] [place] [phone] Jan, [facility] [address] [facility] [id number] [address] [place] [phone] Jan, [facility] [address] [place] [id number] [address] [place] [phone] Jan, [facility] [address] [facility] [id number] [address] [place] [phone] Jan, Type 2 diabetes mellitus wit h diabetic polyneuropathy, without long-term current use of insulin E11.42 ; Type 2 diabetes mellitus with hyperglycemia, without long-term current use of insulin E11.65 ; Degenerative disc disease, lumbar M51.36 ; Fibromyalgia M79.7 ; Restless leg syndrome G25.81 ; HTN (hypertension) I10 ; Hyperlipemia E78.5 ; Anxiety F41.9 ; Migraines G43.909 and High risk medication use Z79.899 [facility] [address] [facility] [id number] [address] [place] [phone] Dec, Chronic pain disorder G89.4 [facility] [address] [facility] [id number] [address] [place] [address] Nov, Chronic pain disorder G89.4 [facility] [address] [place] [id number] [address] [place] [phone] Nov, [facility] [address] [address] Nov, Type 2 diabetes mellitus wit h hyperglycemia, without long-term current use of insulin E11.65 ; HTN (hypertension) I10 ; Hyperlipemia E78.5 ; Restless leg syndrome G25.81 ; Fibromyalgia M79.7 ; Chronic tension-type headache, intractable G44.221 ; Migraines G43.909 ; Chronic pain disorder G89.4 and Overweight (BMI 25.0-29.9) E66.3 [place] [address] [address] Nov, [address] [address] Oct, Degenerative disc disease, l umbar M51.[address] [address] Sep, Degenerative disc disease, l umbar M51.[address] [address] Sep, [address] [address] Aug, Degenerative disc disease, l umbar M51.[address] [address] Aug, Fall from height of greater than 3 feet W19.XXXA ; Hematoma of left hip, subsequent encounter S70.02XD ; Fibromyalgia M79.7 ; Muscle spasms of both lower extremities M62.838 ; Anxiety F41.9 ; Degenerative disc disease, lumbar M51.36 ; Chronic pain disorder G89.4 and Chronic, continuous use of opioids F11.[address] [address] Jul, [address] [address] Jul, Degenerative disc disease, l umbar M51.[address] [id number] [address] [place] [address] Jun, Degenerative disc disease, l umbar M51.36 [facility] [address] [id number] [address] [place] [phone] May, Degenerative disc disease, l umbar M51.36 [facility] [address] [id number] [address] [place] [phone] May, [facility] [address] [id number] [address] [place] [address] Apr, Degenerative disc disease, l umbar M51.36 [facility] [address] [id number] [address] [place] [address] Apr, Degenerative disc disease, l umbar M51.36 [facility] [address] [id number] [address] [place] [address] March, Degenerative disc disease, l umbar M51.36 and Fall (on) (from) other stairs and steps, initial encounter W10.8XXA [facility] [address] [id number] [address] [place] [phone] March, [facility] [address] [id number] [address] [place] [phone] March, [facility] [address] [id number] [address] [place] [address] March, [facility] [address] [id number] [address] [place] [address] March, [facility] [address] [id number] [address] [place] [phone] Feb, [facility] [address] [id number] [address] [place] [phone] Jan, Fibromyalgia M79.7 [facility] [address] [id number] [address] [place] [phone] Jan, [facility] [address] [facility] [id number] [address] [place] [address] Dec, Degenerative disc disease, l umbar M51.36 [facility] [address] [facility] [id number] [address] [place] [phone] Dec, [facility] [address] [facility] [id number] [address] [place] [address] Nov, Degenerative disc disease, l umbar M51.36 ; Fibromyalgia M79.7 ; Restless leg syndrome G25.81 ; HTN (hypertension) I10 ; Hyperlipemia E78.5 ; Chronic tension-type headache, intractable G44.221 and OAB (overactive bladder) N32.81 [facility] [address] [facility] [id number] [address] [place] [phone] Nov, [facility] [address] [facility] [id number] [address] [place] [phone] Oct, [facility] [address] [facility] [id number] [address] [place] [phone] Oct, [address] [id number] [place], [facility] [id number] Oct, [facility] [address] [facility] [id number] [address] [place] [address] Sep, [facility] [address] [facility] [id number] [address] [place] [phone] Aug, [facility] [address] [facility] [id number] [address] [place] [address] Aug, [facility] [address] [facility] [id number] [address] [place] [address] Aug, Degenerative disc disease, l umbar M51.36 [facility] [address] [facility] [id number] [address] [place] [phone] Aug, Degenerative disc disease, l umbar M51.36 ; Fibromyalgia M79.7 ; Migraines G43.909 ; Hyperlipemia E78.5 ; Muscle spasms of both lower extremities M62.838 ; Chronic tension-type headache, intractable G44.221 ; HTN (hypertension) I10 and Restless leg syndrome G25.81 [facility] [address] [id number] [address] [place] [phone] 29 Jul, 2016 [facility] [address] [id number] [address] [place] [phone] 15 Jul, 2016 [facility] [address] [id number] [address] [place] [address] Jul, [facility] [address] [id number] [address] [place] [address] Jun, Chronic tension-type headach e, intractable G44.221 ; Muscle spasms of both lower extremities M62.838 ; Fibromyalgia M79.7 ; Degenerative disc disease, lumbar M51.36 ; Restless leg syndrome G25.81 ; Migraines G43.909 ; Hyperlipemia E78.5 and Anxiety F41.9 [facility] [address] [id number] [address] [place] [address] Jun, [facility] [address] [id number] [address] [place] [address] Jun, [facility] [address] [facility] [id number] [address] [place] [phone] Jun, [facility] [address] [id number] [address] [place] [address] Jun, [facility] [address] [facility] [id number] [address] [place] [address] May, Sebaceous cyst L72.3 [facility] [address] [id number] [address] [place] [address] May, Low back pain M54.5 [facility] [address] [id number] [address] [place] [phone] Apr, [facility] [address] [facility] [id number] [address] [place] [address] Apr, Fibromyalgia M79.7 [facility] [address] [place] [id number] [address] [place] [address] Apr, Degenerative disc disease, l umbar M51.36 ; Fibromyalgia M79.7 ; Migraines G43.909 ; Hyperlipemia E78.5 ; Restless leg syndrome G25.81 ; Other intractable trigeminal autonomic cephalgia (TAC) G44.091 ; Secondary hypertension I15.9 and Anxiety F41.9 [facility] [address] [facility] [id number] [address] [place] [address] March, Other half-way (current) dr amie therapy Z79.899 and HTN (hypertension) I10 [facility] [address] [facility] [id number] [address] [place] [phone] March, Fibromyalgia M79.7 [facility] [address] [place] [id number] [address] [place] [address] Feb, [facility] [address] [place] [id number] [address] [place] [phone] Feb, [facility] [address] [facility] [id number] [address] [place] [phone] Feb, [facility] [address] [place] [id number] [address] [place] [address] Feb, Hyperlipemia E78.5 [facility] [address] [place] [id number] [address] [place] [address] Feb, Migraines G43.909 ; Fibromya lgia M79.7 ; Degenerative disc disease, lumbar M51.36 ; Restless leg syndrome G25.81 ; HTN (hypertension) I10 and Tobacco abuse counseling Z71.6 [facility] [address] [facility] [id number] [address] [place] [address] Feb, [facility] [address] [place] [id number] [address] [place] [phone] Jan, [facility] [address] [place] [id number] [address] [place] [phone] Jan, [facility] [address] [facility] [id number] [address] [place] [phone] Dec, [facility] [address] [facility] [id number] [address] [place] [address] Dec, Degenerative disc disease, l umbar M51.36 ; Restless leg syndrome G25.81 ; Migraines G43.909 ; HTN (hypertension) I10 ; Fibromyalgia M79.7 and Other manager desktop (current) drug therapy Z79.899 [facility] [address] [facility] [id number] [address] [place] [address] Dec, [facility] [address] [facility] [id number] [address] [place] [phone] Nov, [facility] [address] [facility] [id number] [address] [place] [phone] Nov, [facility] [address] [facility] [id number] [address] [place] [address] Oct, [facility] [address] [facility] [id number] [address] [place] [address] Oct, [facility] [address] [facility] [id number] [address] [place] [phone] Oct, [facility] [address] [facility] [id number] [address] [place] [address] Sep, [facility] [address] [facility] [id number] [address] [place] [address] Sep, Routine gynecological examin ation V72.31 ; Degenerative disc disease, lumbar M51.36 ; Fibromyalgia M79.7 ; Restless leg syndrome G25.81 ; Migraines G43.909 and Well woman exam Z01.419 [facility] [address] [facility] [id number] [address] [place] [address] Sep, [facility] [address] [facility] [id number] [address] [place] [address] Aug, [facility] [address] [place] [id number] [address] [place] [address] Aug, Migraines G43.909 ; Degenera tive disc disease, lumbar M51.36 ; Fibromyalgia M79.7 ; Restless leg syndrome G25.81 and HTN (hypertension) I10 [facility] [id number] [place] [address] Aug, [facility] [address] [place] [id number] [place] [address] Aug, [facility] [address] [address] Jul, [facility] [address] [place] [id number] [place] [address] Jul, [facility] [address] [address] Jun, Fibromyalgia 729.1 ; Lumbago 724.2 ; Restless leg syndrome 333.94 ; Migraines 346.90 and Elevated blood pressure (not hypertension) 796.2 [facility] [address] [address] May, Fibromyalgia 729.1 ; Nontoxi c uninodular goiter 241.0 ; Lumbago 724.2 ; Restless leg syndrome 333.94 and Migraines 346.90 [facility] [address] [place] [id number] [address] [place] [phone] Feb, [facility] [address] [place] [id number] [place] [address] Feb, [facility] [address] [address] Jan, [facility] [address] [place] [id number] [address] [place] [address] Jan, [facility] [address] [address] Jan, [facility] [address] [id number] [address] [place] [address], [place] [address] Jan, [facility] [address] [id number] [address] [place] [address], [place] [address] Jan, 2014 [facility] [address] [id number] [address] [place] [address], [place] [address] Jan, 2014 [facility] [address] [id number] [address] [place] [address], [place] [address] Jan, 2014 [facility] [address] [id number] [address] [place] [address], [place] [address] Jan, [facility] [address] [id number] [address] [place] [address], [place] [address] Dec, 2014 [facility] [address] [id number] [address] [place] [address], [place] [address] Dec, 2014 [facility] [address] [id number] [address] [place] [address], [place] [address] Dec, 2014 [facility] [address] [id number] [address] [place] [address], [place] [address] Dec, 2014 [facility] [address] [id number] [address] [place] [address], [place] [address] Dec, 2014 [facility] [address] [id number] [address] [place] [address], [place] [address] Dec, 2014 [facility] [address] [id number] [address] [place] [phone] Dec, 2014 [facility] [address] [id number] [address] [place] [address], [place] [address] Dec, 2014 [facility] [address] [id number] [address] [place] [phone] Dec, 2014 [facility] [address] [id number] [address] [place] [address] Dec, [facility] [address] [facility] [id number] [address] [place] [address] Dec, [facility] [address] [facility] [id number] [address] [place] [phone] Nov, [facility] [address] [facility] [id number] [address] [place] [address] Nov, IMMUNIZATIONS No Known Immunizations SOCIAL HISTORY Never Assessed REASON FOR VISIT Lab (walk-in) PLAN OF CARE VITAL SIGNS MEDICATIONS Unknown Medications RESULTS No Results PROCEDURES Procedure Date Ordered Result Body Site ASSAY OF VITAMIN D June 19, 2018 INSTRUCTIONS MEDICATIONS ADMINISTERED No Known Medications MEDICAL (GENERAL) HISTORY Type Description Date Medical History fibromyalgia Medical History degenerative disk disease Medical History degenerative arthritis Medical History Diabetes Type 2 Surgical History parital hysterectomy 1986 Surgical History several lymph nodes removed- neck Surgical History tonsillectomy Surgical History tubal ligation Hospitalization History surgery Hospitalization History childbirth [facility]
--- OUTSIDE RECORDS SUMMARY | 2020-02-04 14:59 | XMS REPORT ---
Author Author Caitie CADE [facility] Address [address] [place] [address] Care Team Providers Care Plaster Block Layer Name Role Phone SHANA CADE Unavailable PROBLEMS Type Condition ICD9-CM Code EEL25-ZY Code Onset Dates Condition S tatus SNOMED Code Problem Anxiety F41.9 Active 42300250 Problem OAB (overactive bladder) N32.81 Activ e 124457036 Problem Muscle spasms of both lower extremities M62.838 Active 220083532 Problem Chronic tension-type headache, intractable G44.221 Active 954994756 Problem Overweight (BMI 25.0-29.9) E66.3 Act ramana 368246546 Problem Chronic, continuous use of opioids F11.90 Active 816526091 Problem Chronic pain disorder G89.4 Active 331577656 Problem Type 2 diabetes mellitus wit h diabetic polyneuropathy, without long-term current use of insulin E11.42 Active 58803 006 Problem Type 2 diabetes mellitus wit h hyperglycemia, without long-term current use of insulin E11.65 Active 87051817 Problem Vitamin D deficiency E55.9 Active 33323041 Problem Fibromyalgia M79.7 Active 7282566 7 Problem HTN (hypertension) I10 Active 3 5928883 Problem Restless leg syndrome G25.81 Active 53086413 Problem Migraines G43.909 Active 95433374 Problem Degenerative disc disease, lumbar M51.36 Active 14882700 Problem Hyperlipemia E78.5 Active 5456274 4 ALLERGIES No Information ENCOUNTERS Encounter Location Date Diagnosis [facility] [id number] [address] [place] [address] Jul, [facility] [address] [facility] [id number] [address] [place] [address] Jun, Fibromyalgia M79.7 [facility] [address] [facility] [id number] [address] [place] [address] Jun, Chronic pain disorder G89.4 [facility] [address] [facility] [id number] [address] [place] [address] Jun, [facility] [address] [facility] [id number] [address] [place] [address] May, [facility] [address] [facility] [id number] [address] [place] [address] May, Vitamin D deficiency E55.9 [place] [address] [address] [facility] [id number] [address] [place] [address] May, Vitamin D deficiency E55.[id number] [place] [address] May, Chronic pain disorder G89.4 [place] [address] [address] [facility] [id number] [address] [place] [address] May, Chronic pain disorder G89.4 [place] [id number] [place] [address] Apr, Chronic pain disorder G89.4 [place] [address] [address] [facility] [id number] [address] [place] [address] Apr, Type 2 diabetes mellitus wit h diabetic polyneuropathy, without long-term current use of insulin E11.42 ; HTN (hypertension) I10 ; Hyperlipemia E78.5 ; Fibromyalgia M79.7 ; Degenerative disc disease, lumbar M51.36 ; Chronic pain disorder G89.4 ; Chronic, continuous use of opioids F11.90 ; Vitamin D deficiency E55.9 ; Anxiety F41.9 ; Chronic tension-type headache, intractable G44.221 and Overweight (BMI 25.0-29.9) E66.3 [place] [address] [address] [facility] [id number] [address] [place] [address] March, Chronic pain disorder G89.4 [place] [address] [address] [facility] [id number] [address] [place] [address] March, Type 2 diabetes mellitus wit h diabetic polyneuropathy, without long-term current use of insulin E11.42 [facility] [address] [facility] [id number] [address] [place] [address] Feb, Chronic pain disorder G89.4 [facility] [address] [facility] [id number] [address] [place] [address] Jan, [facility] [address] [facility] [id number] [address] [place] [address] Jan, Pharyngitis, unspecified vashti ology J02.9 ; Fibromyalgia M79.7 and Chronic pain disorder G89.4 [facility] [address] [facility] [id number] [address] [place] [address] Jan, [facility] [address] [facility] [id number] [address] [place] [address] Jan, [facility] [id number] [place] [address] Jan, [facility] [address] [facility] [id number] [address] [place] [address] Jan, Type 2 diabetes mellitus wit h diabetic polyneuropathy, without long-term current use of insulin E11.42 ; Type 2 diabetes mellitus with hyperglycemia, without long-term current use of insulin E11.65 ; Degenerative disc disease, lumbar M51.36 ; Fibromyalgia M79.7 ; Restless leg syndrome G25.81 ; HTN (hypertension) I10 ; Hyperlipemia E78.5 ; Anxiety F41.9 ; Migraines G43.909 and High risk medication use Z79.899 [facility] [address] [facility] [id number] [address] [place] [address] Dec, Chronic pain disorder G89.4 [facility] [address] [facility] [id number] [address] [place] [address] Nov, Chronic pain disorder G89.4 [facility] [id number] [place] [address] Nov, [facility] [place] [address] [address] Nov, Type 2 diabetes mellitus wit h hyperglycemia, without long-term current use of insulin E11.65 ; HTN (hypertension) I10 ; Hyperlipemia E78.5 ; Restless leg syndrome G25.81 ; Fibromyalgia M79.7 ; Chronic tension-type headache, intractable G44.221 ; Migraines G43.909 ; Chronic pain disorder G89.4 and Overweight (BMI 25.0-29.9) E66.[address] [address] Nov, [address] [address] Oct, Degenerative disc disease, l umbar M51.[address] [address] Sep, Degenerative disc disease, l umbar M51.[address] [address] Sep, [address] [address] Aug, Degenerative disc disease, l umbar M51.[address] [address] Aug, Fall from height of greater than 3 feet W19.XXXA ; Hematoma of left hip, subsequent encounter S70.02XD ; Fibromyalgia M79.7 ; Muscle spasms of both lower extremities M62.838 ; Anxiety F41.9 ; Degenerative disc disease, lumbar M51.36 ; Chronic pain disorder G89.4 and Chronic, continuous use of opioids F11.[address] [address] Jul, [address] [address] Jul, Degenerative disc disease, l umbar M51.36 [place] [address] [id number] [address] [place] [address] Jun, Degenerative disc disease, l umbar M51.36 [facility] [address] [id number] [address] [place] [address] May, Degenerative disc disease, l umbar M51.36 [facility] [address] [id number] [address] [place] [address] May, [facility] [address] [id number] [address] [place] [address] Apr, Degenerative disc disease, l umbar M51.36 [facility] [address] [id number] [address] [place] [address] Apr, Degenerative disc disease, l umbar M51.36 [facility] [address] [id number] [address] [place] [address] March, Degenerative disc disease, l umbar M51.36 and Fall (on) (from) other stairs and steps, initial encounter W10.8XXA [facility] [address] [id number] [address] [place] [address] March, [facility] [address] [id number] [address] [place] [address] March, [facility] [address] [id number] [address] [place] [address] March, [facility] [address] [id number] [address] [place] [address] March, [facility] [address] [id number] [address] [place] [address] Feb, [facility] [address] [facility] [id number] [address] [place] [address] Jan, Fibromyalgia M79.7 [facility] [address] [facility] [id number] [address] [place] [address] Jan, [facility] [address] [facility] [id number] [address] [place] [address] Dec, Degenerative disc disease, l umbar M51.36 [facility] [address] [facility] [id number] [address] [place] [address] Dec, [facility] [address] [facility] [id number] [address] [place] [address] Nov, Degenerative disc disease, l umbar M51.36 ; Fibromyalgia M79.7 ; Restless leg syndrome G25.81 ; HTN (hypertension) I10 ; Hyperlipemia E78.5 ; Chronic tension-type headache, intractable G44.221 and OAB (overactive bladder) N32.81 [facility] [address] [facility] [id number] [address] [place] [address] Nov, [facility] [address] [facility] [id number] [address] [place] [address] Oct, [facility] [address] [facility] [id number] [address] [place] [address] Oct, [address] [id number] [place], [facility] [id number] Oct, [facility] [address] [facility] [id number] [address] [place] [address] Sep, [facility] [address] [facility] [id number] [address] [place] [address] Aug, [facility] [address] [facility] [id number] [address] [place] [address] Aug, [facility] [address] [facility] [id number] [address] [place] [address] Aug, Degenerative disc disease, l umbar M51.36 [facility] [address] [facility] [id number] [address] [place] [address] Aug, Degenerative disc disease, l umbar M51.36 ; Fibromyalgia M79.7 ; Migraines G43.909 ; Hyperlipemia E78.5 ; Muscle spasms of both lower extremities M62.838 ; Chronic tension-type headache, intractable G44.221 ; HTN (hypertension) I10 and Restless leg syndrome G25.81 [facility] [address] [id number] [address] [place] [address] 29 Jul, 2016 [facility] [address] [facility] [id number] [address] [place] [address] Jul, [facility] [address] [id number] [address] [place] [address] Jul, [facility] [address] [id number] [address] [place] [address] Jun, Chronic tension-type headach e, intractable G44.221 ; Muscle spasms of both lower extremities M62.838 ; Fibromyalgia M79.7 ; Degenerative disc disease, lumbar M51.36 ; Restless leg syndrome G25.81 ; Migraines G43.909 ; Hyperlipemia E78.5 and Anxiety F41.9 [facility] [address] [id number] [address] [place] [address] Jun, [facility] [address] [facility] [id number] [address] [place] [address] Jun, [facility] [address] [facility] [id number] [address] [place] [address] Jun, [facility] [address] [facility] [id number] [address] [place] [address] Jun, [facility] [address] [facility] [id number] [address] [place] [address] May, Sebaceous cyst L72.3 [facility] [address] [facility] [id number] [address] [place] [address] May, Low back pain M54.5 [facility] [address] [id number] [address] [place] [address] Apr, [facility] [address] [facility] [id number] [address] [place] [address] Apr, Fibromyalgia M79.7 [facility] [id number] [place] [address] Apr, Degenerative disc disease, l umbar M51.36 ; Fibromyalgia M79.7 ; Migraines G43.909 ; Hyperlipemia E78.5 ; Restless leg syndrome G25.81 ; Other intractable trigeminal autonomic cephalgia (TAC) G44.091 ; Secondary hypertension I15.9 and Anxiety F41.9 [facility] [id number] [place] [address] March, Other halfway (current) dr amie therapy Z79.899 and HTN (hypertension) I10 [facility] [id number] [place] [address] March, Fibromyalgia M79.7 [facility] [id number] [place] [address] Feb, [facility] [id number] [place] [address] Feb, [facility] [id number] [place] [address] Feb, [facility] [id number] [place] [address] Feb, Hyperlipemia E78.5 [facility] [id number] [place] [address] Feb, Migraines G43.909 ; Fibromya lgia M79.7 ; Degenerative disc disease, lumbar M51.36 ; Restless leg syndrome G25.81 ; HTN (hypertension) I10 and Tobacco abuse counseling Z71.6 [facility] [id number] [place] [address] Feb, [facility] [id number] [place] [address] Jan, [facility] [id number] [place] [address] Jan, [facility] [address] [facility] [id number] [address] [place] [address] Dec, [facility] [id number] [place] [address] Dec, Degenerative disc disease, l umbar M51.36 ; Restless leg syndrome G25.81 ; Migraines G43.909 ; HTN (hypertension) I10 ; Fibromyalgia M79.7 and Other halfway (current) drug therapy Z79.899 [facility] [address] [facility] [id number] [address] [place] [address] Dec, [facility] [id number] [place] [address] Nov, [facility] [id number] [place] [address] Nov, [facility] [id number] [place] [address] Oct, [facility] [id number] [place] [address] Oct, [facility] [id number] [place] [address] Oct, [facility] [id number] [place] [address] Sep, [facility] [id number] [place] [address] Sep, Routine gynecological examin ation V72.31 ; Degenerative disc disease, lumbar M51.36 ; Fibromyalgia M79.7 ; Restless leg syndrome G25.81 ; Migraines G43.909 and Well woman exam Z01.419 [facility] [id number] [place] [address] Sep, [facility] [id number] [place] [address] Aug, [facility] [id number] [place] [address] Aug, Migraines G43.909 ; Degenera tive disc disease, lumbar M51.36 ; Fibromyalgia M79.7 ; Restless leg syndrome G25.81 and HTN (hypertension) I10 [facility] [id number] [place] [address] Aug, [facility] [id number] [place] [address] Aug, [facility] [id number] [place] [address] Jul, [facility] [id number] [place] [address] Jul, [facility] [address] [address] Jun, Fibromyalgia 729.1 ; Lumbago 724.2 ; Restless leg syndrome 333.94 ; Migraines 346.90 and Elevated blood pressure (not hypertension) 796.2 [facility] [id number] [place] [address] May, Fibromyalgia 729.1 ; Nontoxi c uninodular goiter 241.0 ; Lumbago 724.2 ; Restless leg syndrome 333.94 and Migraines 346.90 [facility] [id number] [place] [address] Feb, [facility] [id number] [place] [address] Feb, [facility] [id number] [place] [address] Jan, [facility] [id number] [place] [address] Jan, [facility] [id number] [place] [address] [place] [address] 12 Jan, 2014 [facility] [place] [facility] [address] [id number] [address] [place] [address], [place] [address] Jan, 2014 [facility] [place] [address] [id number] [address] [place] [address], [place] [address] Jan, 2014 [facility] [place] [address] [id number] [address] [place] [address], [place] [address] 04 Jan, 2014 [facility] [address] [id number] [address] [place] [address], [place] [address] Jan, 2014 [facility] [address] [id number] [address] [place] [address], [place] [address] Jan, 2014 [facility] [place] [address] [id number] [address] [place] [address], [place] [address] 17 Dec, 2014 [facility] [address] [id number] [address] [place] [address], [place] [address] 17 Dec, 2014 [facility] [place] [address] [id number] [address] [place] [address], [place] [address] 17 Dec, 2014 [facility] [place] [address] [id number] [address] [place] [address], [place] [address] Dec, 2014 [facility] [address] [id number] [address] [place] [address], [place] [address] Dec, 2014 [facility] [address] [id number] [address] [place] [address], [place] [address] 10 Dec, 2014 [facility] [place] [address] [id number] [address] [place] [address], [place] [address] 10 Dec, 2014 [facility] [place] [address] [id number] [address] [place] [address], [place] [address] 09 Dec, 2014 [facility] [address] [id number] [address] [place] [address], [place] [address] 09 Dec, 2014 [facility] [place] [address] [id number] [address] [place] [address], [place] [address] Dec, [facility] [address] [facility] [id number] [address] [place] [address] Dec, [facility] [address] [facility] [id number] [address] [place] [address] Nov, [facility] [address] [facility] [id number] [address] [place] [address] Nov, IMMUNIZATIONS No Known Immunizations SOCIAL HISTORY Never Assessed REASON FOR VISIT PLAN OF CARE VITAL SIGNS MEDICATIONS Medication Instructions Dosage Frequency Start Date End Date Duration S tatus Hydrocodone-Acetaminophen 10-325 MG Orally every 6 hrs 1 tablet as needed 6h May, 28 days Active RESULTS No Results PROCEDURES [...]
--- OUTSIDE RECORDS SUMMARY | 2020-02-04 14:59 | XMS REPORT ---
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 Pump Servicer Supervisor Name Role Phone QUARLESSONYA Lamas Unavailable PROBLEMS Type Condition ICD9-CM Code CMZ19-RA Code Onset Dates Condition S tatus SNOMED Code Problem Anxiety F41.9 Active 39429782 Problem OAB (overactive bladder) N32.81 Activ e 390288587 Problem Muscle spasms of both lower extremities M62.838 Active 194480846 Problem Chronic tension-type headache, intractable G44.221 Active 639891030 Problem Overweight (BMI 25.0-29.9) E66.3 Act ramana 653176351 Problem Chronic, continuous use of opioids F11.90 Active 112020901 Problem Chronic pain disorder G89.4 Active 490460354 Problem Type 2 diabetes mellitus wit h diabetic polyneuropathy, without long-term current use of insulin E11.42 Active 96074 006 Problem Type 2 diabetes mellitus wit h hyperglycemia, without long-term current use of insulin E11.65 Active 83853659 Problem Vitamin D deficiency E55.9 Active 58843911 Problem Fibromyalgia M79.7 Active 5399516 7 Problem HTN (hypertension) I10 Active 3 2880145 Problem Restless leg syndrome G25.81 Active 19377049 Problem Migraines G43.909 Active 29830591 Problem Degenerative disc disease, lumbar M51.36 Active 25169663 Problem Hyperlipemia E78.5 Active 5586980 4 ALLERGIES No Information ENCOUNTERS Encounter Location Date Diagnosis [facility] [address] [facility] [id number] [address] [place] [id number] Jul, [facility] [address] [facility] [id number] [address] [place] [address] Jun, Fibromyalgia M79.7 [facility] [address] [facility] [id number] [address] [place] [address] Jun, Chronic pain disorder G89.4 [facility] [address] [facility] [id number] [address] [place] [address] Jun, [facility] [address] [facility] [id number] [address] [place] [address] May, [facility] [address] [facility] [id number] [address] [place] [address] May, Vitamin D deficiency E55.9 [place] [address] [facility] [id number] [address] [place] [address] May, Vitamin D deficiency E55.[id number] [place] [phone] May, Chronic pain disorder G89.4 [place] [address] [facility] [id number] [address] [place] [address] May, Chronic pain disorder G89.4 [place] [address] [place] [id number] [address] [place] [address] Apr, Chronic pain disorder G89.4 [place] [address] [facility] [id number] [address] [place] [id number] Apr, Type 2 diabetes mellitus wit h diabetic polyneuropathy, without long-term current use of insulin E11.42 ; HTN (hypertension) I10 ; Hyperlipemia E78.5 ; Fibromyalgia M79.7 ; Degenerative disc disease, lumbar M51.36 ; Chronic pain disorder G89.4 ; Chronic, continuous use of opioids F11.90 ; Vitamin D deficiency E55.9 ; Anxiety F41.9 ; Chronic tension-type headache, intractable G44.221 and Overweight (BMI 25.0-29.9) E66.3 [place] [address] [facility] [id number] [address] [place] [id number] March, Chronic pain disorder G89.4 [place] [address] [facility] [id number] [address] [place] [address] March, Type 2 diabetes mellitus wit h diabetic polyneuropathy, without long-term current use of insulin E11.42 [facility] [address] [facility] [id number] [address] [place] [address] Feb, Chronic pain disorder G89.4 [facility] [address] [facility] [id number] [address] [place] [id number] Jan, [facility] [address] [facility] [id number] [address] [place] [id number] Jan, Pharyngitis, unspecified vashti ology J02.9 ; Fibromyalgia M79.7 and Chronic pain disorder G89.4 [facility] [address] [facility] [id number] [address] [place] [id number] Jan, [facility] [address] [facility] [id number] [address] [place] [address] Jan, [facility] [address] [place] [id number] [address] [place] [address] Jan, [facility] [address] [facility] [id number] [address] [place] [id number] Jan, Type 2 diabetes mellitus wit h diabetic polyneuropathy, without long-term current use of insulin E11.42 ; Type 2 diabetes mellitus with hyperglycemia, without long-term current use of insulin E11.65 ; Degenerative disc disease, lumbar M51.36 ; Fibromyalgia M79.7 ; Restless leg syndrome G25.81 ; HTN (hypertension) I10 ; Hyperlipemia E78.5 ; Anxiety F41.9 ; Migraines G43.909 and High risk medication use Z79.899 [facility] [address] [facility] [id number] [address] [place] [id number] Dec, Chronic pain disorder G89.4 [facility] [address] [facility] [id number] [address] [place] [address] Nov, Chronic pain disorder G89.4 [facility] [address] [place] [id number] [address] [place] [id number] Nov, [facility] [address] [address] Nov, Type 2 diabetes mellitus wit h hyperglycemia, without long-term current use of insulin E11.65 ; HTN (hypertension) I10 ; Hyperlipemia E78.5 ; Restless leg syndrome G25.81 ; Fibromyalgia M79.7 ; Chronic tension-type headache, intractable G44.221 ; Migraines G43.909 ; Chronic pain disorder G89.4 and Overweight (BMI 25.0-29.9) E66.3 [place] [address] [address] Nov, [address] [address] Oct, Degenerative disc disease, l umbar M51.[address] [address] Sep, Degenerative disc disease, l umbar M51.[address] [address] Sep, [address] [address] Aug, Degenerative disc disease, l umbar M51.[address] [address] Aug, Fall from height of greater than 3 feet W19.XXXA ; Hematoma of left hip, subsequent encounter S70.02XD ; Fibromyalgia M79.7 ; Muscle spasms of both lower extremities M62.838 ; Anxiety F41.9 ; Degenerative disc disease, lumbar M51.36 ; Chronic pain disorder G89.4 and Chronic, continuous use of opioids F11.[address] [address] Jul, [address] [address] Jul, Degenerative disc disease, l umbar M51.[address] [id number] [address] [place] [address] Jun, Degenerative disc disease, l umbar M51.36 [facility] [address] [id number] [address] [place] [address] May, Degenerative disc disease, l umbar M51.36 [facility] [address] [id number] [address] [place] [phone] May, [facility] [address] [id number] [address] [place] [address] Apr, Degenerative disc disease, l umbar M51.36 [facility] [address] [id number] [address] [place] [address] Apr, Degenerative disc disease, l umbar M51.36 [facility] [address] [id number] [address] [place] [id number] March, Degenerative disc disease, l umbar M51.36 and Fall (on) (from) other stairs and steps, initial encounter W10.8XXA [facility] [address] [id number] [address] [place] [id number] March, [facility] [address] [id number] [address] [place] [id number] March, [facility] [address] [id number] [address] [place] [id number] March, [facility] [address] [id number] [address] [place] [id number] March, [facility] [address] [id number] [address] [place] [address] Feb, [facility] [address] [id number] [address] [place] [id number] Jan, Fibromyalgia M79.7 [facility] [address] [id number] [address] [place] [id number] Jan, [facility] [address] [facility] [id number] [address] [place] [id number] Dec, Degenerative disc disease, l umbar M51.36 [facility] [address] [facility] [id number] [address] [place] [id number] Dec, [facility] [address] [facility] [id number] [address] [place] [id number] Nov, Degenerative disc disease, l umbar M51.36 ; Fibromyalgia M79.7 ; Restless leg syndrome G25.81 ; HTN (hypertension) I10 ; Hyperlipemia E78.5 ; Chronic tension-type headache, intractable G44.221 and OAB (overactive bladder) N32.81 [facility] [address] [facility] [id number] [address] [place] [id number] Nov, [facility] [address] [facility] [id number] [address] [place] [id number] Oct, [facility] [address] [facility] [id number] [address] [place] [address] Oct, [address] [id number] [place], [facility] [id number] Oct, [facility] [address] [facility] [id number] [address] [place] [id number] Sep, [facility] [address] [facility] [id number] [address] [place] [id number] Aug, [facility] [address] [facility] [id number] [address] [place] [id number] Aug, [facility] [address] [facility] [id number] [address] [place] [id number] Aug, Degenerative disc disease, l umbar M51.36 [facility] [address] [facility] [id number] [address] [place] [address] Aug, Degenerative disc disease, l umbar M51.36 ; Fibromyalgia M79.7 ; Migraines G43.909 ; Hyperlipemia E78.5 ; Muscle spasms of both lower extremities M62.838 ; Chronic tension-type headache, intractable G44.221 ; HTN (hypertension) I10 and Restless leg syndrome G25.81 [facility] [address] [id number] [address] [place] [id number] 29 Jul, 2016 [facility] [address] [id number] [address] [place] [id number] 15 Jul, 2016 [facility] [address] [id number] [address] [place] [id number] Jul, [facility] [address] [id number] [address] [place] [address] Jun, Chronic tension-type headach e, intractable G44.221 ; Muscle spasms of both lower extremities M62.838 ; Fibromyalgia M79.7 ; Degenerative disc disease, lumbar M51.36 ; Restless leg syndrome G25.81 ; Migraines G43.909 ; Hyperlipemia E78.5 and Anxiety F41.9 [facility] [address] [id number] [address] [place] [id number] Jun, [facility] [address] [id number] [address] [place] [id number] Jun, [facility] [address] [facility] [id number] [address] [place] [id number] Jun, [facility] [address] [id number] [address] [place] [id number] Jun, [facility] [address] [facility] [id number] [address] [place] [address] May, Sebaceous cyst L72.3 [facility] [address] [id number] [address] [place] [address] May, Low back pain M54.5 [facility] [address] [id number] [address] [place] [id number] Apr, [facility] [address] [facility] [id number] [address] [place] [address] Apr, Fibromyalgia M79.7 [facility] [address] [place] [id number] [address] [place] [address] Apr, Degenerative disc disease, l umbar M51.36 ; Fibromyalgia M79.7 ; Migraines G43.909 ; Hyperlipemia E78.5 ; Restless leg syndrome G25.81 ; Other intractable trigeminal autonomic cephalgia (TAC) G44.091 ; Secondary hypertension I15.9 and Anxiety F41.9 [facility] [address] [facility] [id number] [address] [place] [id number] March, Other alf (current) dr amie therapy Z79.899 and HTN (hypertension) I10 [facility] [address] [facility] [id number] [address] [place] [id number] March, Fibromyalgia M79.7 [facility] [address] [place] [id number] [address] [place] [id number] Feb, [facility] [address] [place] [id number] [address] [place] [id number] Feb, [facility] [address] [facility] [id number] [address] [place] [address] Feb, [facility] [address] [place] [id number] [address] [place] [id number] Feb, Hyperlipemia E78.5 [facility] [address] [place] [id number] [address] [place] [address] Feb, Migraines G43.909 ; Fibromya lgia M79.7 ; Degenerative disc disease, lumbar M51.36 ; Restless leg syndrome G25.81 ; HTN (hypertension) I10 and Tobacco abuse counseling Z71.6 [facility] [address] [facility] [id number] [address] [place] [id number] Feb, [facility] [address] [place] [id number] [address] [place] [id number] Jan, [facility] [address] [place] [id number] [address] [place] [id number] Jan, [facility] [address] [facility] [id number] [address] [place] [address] Dec, [facility] [address] [facility] [id number] [address] [place] [address] Dec, Degenerative disc disease, l umbar M51.36 ; Restless leg syndrome G25.81 ; Migraines G43.909 ; HTN (hypertension) I10 ; Fibromyalgia M79.7 and 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 [facility] [address] [facility] [id number] [address] [place] [id number] Dec, [facility] [address] [facility] [id number] [address] [place] [id number] Nov, [facility] [address] [facility] [id number] [address] [place] [id number] Nov, [facility] [address] [facility] [id number] [address] [place] [id number] Oct, [facility] [address] [facility] [id number] [address] [place] [id number] Oct, [facility] [address] [facility] [id number] [address] [place] [id number] Oct, [facility] [address] [facility] [id number] [address] [place] [address] Sep, [facility] [address] [facility] [id number] [address] [place] [address] Sep, Routine gynecological examin ation V72.31 ; Degenerative disc disease, lumbar M51.36 ; Fibromyalgia M79.7 ; Restless leg syndrome G25.81 ; Migraines G43.909 and Well woman exam Z01.419 [facility] [address] [facility] [id number] [address] [place] [address] Sep, [facility] [address] [facility] [id number] [address] [place] [id number] Aug, [facility] [address] [place] [id number] [address] [place] [address] Aug, Migraines G43.909 ; Degenera tive disc disease, lumbar M51.36 ; Fibromyalgia M79.7 ; Restless leg syndrome G25.81 and HTN (hypertension) I10 [facility] [id number] [place] [address] Aug, [facility] [address] [place] [id number] [place] [address] Aug, [facility] [address] [address] Jul, [facility] [address] [place] [id number] [place] [address] Jul, [facility] [address] [address] Jun, Fibromyalgia 729.1 ; Lumbago 724.2 ; Restless leg syndrome 333.94 ; Migraines 346.90 and Elevated blood pressure (not hypertension) 796.2 [facility] [address] [address] May, Fibromyalgia 729.1 ; Nontoxi c uninodular goiter 241.0 ; Lumbago 724.2 ; Restless leg syndrome 333.94 and Migraines 346.90 [facility] [address] [place] [id number] [address] [place] [address] Feb, [facility] [address] [place] [id number] [place] [id number] Feb, [facility] [address] [id number] Jan, [facility] [address] [place] [id number] [address] [place] [id number] Jan, [facility] [address] [id number] Jan, [facility] [address] [id number] [address] [place] [address], [place] [address] Jan, [facility] [address] [id number] [address] [place] [address], [place] [address] Jan, 2014 [facility] [address] [id number] [address] [place] [address], [place] [address] Jan, 2014 [facility] [address] [id number] [address] [place] [address], [place] [address] Jan, 2014 [facility] [address] [id number] [address] [place] [address], [place] [address] Jan, [facility] [address] [id number] [address] [place] [address], [place] [address] Dec, 2014 [facility] [address] [id number] [address] [place] [address], [place] [address] Dec, 2014 [facility] [address] [id number] [address] [place] [address], [place] [address] Dec, 2014 [facility] [address] [id number] [address] [place] [address], [place] [address] Dec, 2014 [facility] [address] [id number] [address] [place] [address], [place] [address] Dec, 2014 [facility] [address] [id number] [address] [place] [address], [place] [address] Dec, 2014 [facility] [address] [id number] [address] [place] [id number] Dec, 2014 [facility] [address] [id number] [address] [place] [address], [place] [address] Dec, 2014 [facility] [address] [id number] [address] [place] [id number] Dec, 2014 [facility] [address] [id number] [address] [place] [address] Dec, [facility] [address] [facility] [id number] [address] [place] [id number] Dec, [facility] [address] [facility] [id number] [address] [place] [id number] Nov, [facility] [address] [facility] [id number] [address] [place] [id number] Nov, IMMUNIZATIONS No Known Immunizations SOCIAL HISTORY Never Assessed REASON FOR VISIT new order PLAN OF CARE VITAL SIGNS MEDICATIONS Unknown [...] History surgery Hospitalization History childbirth Hospitalization History [facility] ER for migraine
--- OUTSIDE RECORDS SUMMARY | 2020-02-04 14:59 | XMS REPORT ---
Author Author WILLAM Caitielinda HASSAN Organization [facility] Address [address] [place] [address] Care Team Providers Care Knobber Name Role Phone SONYA QUARLES Unavailable PROBLEMS Type Condition ICD9-CM Code WMT35-AE Code Onset Dates Condition S tatus SNOMED Code Problem Anxiety F41.9 Active 14469021 Problem OAB (overactive bladder) N32.81 Activ e 659556350 Problem Muscle spasms of both lower extremities M62.838 Active 309653614 Problem Chronic tension-type headache, intractable G44.221 Active 108401011 Problem Overweight (BMI 25.0-29.9) E66.3 Act ramana 989596687 Problem Chronic, continuous use of opioids F11.90 Active 215275060 Problem Chronic pain disorder G89.4 Active 593947409 Problem Type 2 diabetes mellitus wit h diabetic polyneuropathy, without long-term current use of insulin E11.42 Active 50051 006 Problem Type 2 diabetes mellitus wit h hyperglycemia, without long-term current use of insulin E11.65 Active 44376527 Problem Vitamin D deficiency E55.9 Active 85932167 Problem Fibromyalgia M79.7 Active 4381612 7 Problem HTN (hypertension) I10 Active 3 0095192 Problem Restless leg syndrome G25.81 Active 45158080 Problem Migraines G43.909 Active 34644877 Problem Degenerative disc disease, lumbar M51.36 Active 01812069 Problem Hyperlipemia E78.5 Active 5147601 4 ALLERGIES No Information ENCOUNTERS Encounter Location Date Diagnosis [facility] [address] [facility] [place] [id number] [address] [place] [address] 14 Jul, 2018 [facility] [address] [facility] [place] [id number] [address] [place] [address] 11 Jul, 2018 Restless leg syndrome G25.81 [facility] [address] [facility] [place] [id number] [address] [place] [address] Jun, Fibromyalgia M79.7 [facility] [address] [facility] [place] [id number] [address] [place] [address] Jun, Chronic pain disorder G89.4 [facility] [address] [facility] [place] [id number] [address] [place] [address] Jun, [facility] [address] [facility] [place] [id number] [address] [place] [address] May, [facility] [address] [facility] [place] [id number] [address] [place] [address] May, Vitamin D deficiency E55.9 [place] [address] [facility] [place] [id number] [address] [place] [address] May, Vitamin D deficiency E55.[id number] [place] [address] May, Chronic pain disorder G89.4 [place] [address] [facility] [place] [id number] [address] [place] [address] May, Chronic pain disorder G89.4 [place] [address] [facility] [place] [id number] [address] [place] [address] Apr, Chronic pain disorder G89.4 [place] [address] [facility] [place] [id number] [address] [place] [address] Apr, Type 2 diabetes mellitus wit h diabetic polyneuropathy, without long-term current use of insulin E11.42 ; HTN (hypertension) I10 ; Hyperlipemia E78.5 ; Fibromyalgia M79.7 ; Degenerative disc disease, lumbar M51.36 ; Chronic pain disorder G89.4 ; Chronic, continuous use of opioids F11.90 ; Vitamin D deficiency E55.9 ; Anxiety F41.9 ; Chronic tension-type headache, intractable G44.221 and Overweight (BMI 25.0-29.9) E66.3 [place] [id number] [facility] [place] [id number] [address] [place] [address] March, Chronic pain disorder G89.4 [place] [address] [place] [id number] [address] [place] [address] March, Type 2 diabetes mellitus wit h diabetic polyneuropathy, without long-term current use of insulin E11.42 [place] [address] [facility] [place] [id number] [address] [place] [address] Feb, Chronic pain disorder G89.4 [place] [id number] [place] [address] Jan, [place] [address] [address] Jan, Pharyngitis, unspecified vashti ology J02.9 ; Fibromyalgia M79.7 and Chronic pain disorder G89.4 [place] [address] [place] [id number] [address] [place] [address] Jan, [place] [address] [address] Jan, [place] [address] [place] [id number] [address] [place] [address] Jan, [place] [address] [address] Jan, Type 2 diabetes mellitus wit h diabetic polyneuropathy, without long-term current use of insulin E11.42 ; Type 2 diabetes mellitus with hyperglycemia, without long-term current use of insulin E11.65 ; Degenerative disc disease, lumbar M51.36 ; Fibromyalgia M79.7 ; Restless leg syndrome G25.81 ; HTN (hypertension) I10 ; Hyperlipemia E78.5 ; Anxiety F41.9 ; Migraines G43.909 and High risk medication use Z79.899 [place] [address] [place] [id number] [address] [place] [address] Dec, Chronic pain disorder G89.4 [place] [address] [place] [id number] [address] [place] [address] Nov, Chronic pain disorder G89.[address] [address] Nov, [address] [address] Nov, Type 2 diabetes mellitus wit h hyperglycemia, without long-term current use of insulin E11.65 ; HTN (hypertension) I10 ; Hyperlipemia E78.5 ; Restless leg syndrome G25.81 ; Fibromyalgia M79.7 ; Chronic tension-type headache, intractable G44.221 ; Migraines G43.909 ; Chronic pain disorder G89.4 and Overweight (BMI 25.0-29.9) E66.[address] [address] Nov, [address] [address] Oct, Degenerative disc disease, l umbar M51.[address] [address] Sep, Degenerative disc disease, l umbar M51.[address] [address] Sep, [address] [address] Aug, Degenerative disc disease, l umbar M51.[address] [address] Aug, Fall from height of greater than 3 feet W19.XXXA ; Hematoma of left hip, subsequent encounter S70.02XD ; Fibromyalgia M79.7 ; Muscle spasms of both lower extremities M62.838 ; Anxiety F41.9 ; Degenerative disc disease, lumbar M51.36 ; Chronic pain disorder G89.4 and Chronic, continuous use of opioids F11.[address] [address] Jul, [place] [id number] [place] [address] Jul, Degenerative disc disease, l umbar M51.36 [facility] [address] [facility] [place] [facility] [id number] [address] [place] [address] Jun, Degenerative disc disease, l umbar M51.36 [facility] [address] [facility] [place] [id number] [address] [place] [address] May, Degenerative disc disease, l umbar M51.36 [facility] [address] [facility] [place] [id number] [address] [place] [address] May, [facility] [address] [facility] [place] [id number] [address] [place] [address] Apr, Degenerative disc disease, l umbar M51.36 [facility] [address] [facility] [place] [id number] [address] [place] [address] Apr, Degenerative disc disease, l umbar M51.36 [facility] [address] [facility] [place] [id number] [address] [place] [address] March, Degenerative disc disease, l umbar M51.36 and Fall (on) (from) other stairs and steps, initial encounter W10.8XXA [facility] [address] [facility] [place] [id number] [address] [place] [address] March, [facility] [address] [facility] [place] [id number] [address] [place] [address] March, [facility] [address] [facility] [place] [id number] [address] [place] [address] March, [facility] [address] [facility] [place] [id number] [address] [place] [address] March, [facility] [address] [place] [id number] [address] [place] [address] Feb, [facility] [address] [facility] [place] [id number] [address] [place] [address] Jan, Fibromyalgia M79.7 [facility] [address] [id number] [address] [place] [address] Jan, [facility] [address] [facility] [place] [id number] [address] [place] [address] Dec, Degenerative disc disease, l umbar M51.36 [facility] [address] [facility] [place] [id number] [address] [place] [address] Dec, [facility] [address] [facility] [place] [id number] [address] [place] [address] Nov, Degenerative disc disease, l umbar M51.36 ; Fibromyalgia M79.7 ; Restless leg syndrome G25.81 ; HTN (hypertension) I10 ; Hyperlipemia E78.5 ; Chronic tension-type headache, intractable G44.221 and OAB (overactive bladder) N32.81 [facility] [address] [facility] [place] [id number] [address] [place] [address] Nov, [facility] [address] [facility] [place] [id number] [address] [place] [address] Oct, [facility] [address] [facility] [place] [id number] [address] [place] [address] Oct, [address] [id number] [facility] [id number] Oct, [facility] [address] [facility] [place] [id number] [address] [place] [address] Sep, [facility] [address] [facility] [place] [id number] [address] [place] [address] Aug, [facility] [address] [id number] [address] [place] [address] Aug, [facility] [address] [facility] [place] [id number] [address] [place] [address] Aug, Degenerative disc disease, l umbar M51.36 [facility] [address] [id number] [address] [place] [address] Aug, Degenerative disc disease, l umbar M51.36 ; Fibromyalgia M79.7 ; Migraines G43.909 ; Hyperlipemia E78.5 ; Muscle spasms of both lower extremities M62.838 ; Chronic tension-type headache, intractable G44.221 ; HTN (hypertension) I10 and Restless leg syndrome G25.81 [facility] [address] [id number] [address] [place] [address] Jul, [facility] [address] [id number] [address] [place] [address] Jul, [facility] [address] [id number] [address] [place] [address] Jul, [facility] [address] [facility] [place] [id number] [address] [place] [address] Jun, Chronic tension-type headach e, intractable G44.221 ; Muscle spasms of both lower extremities M62.838 ; Fibromyalgia M79.7 ; Degenerative disc disease, lumbar M51.36 ; Restless leg syndrome G25.81 ; Migraines G43.909 ; Hyperlipemia E78.5 and Anxiety F41.9 [facility] [address] [facility] [place] [id number] [address] [place] [address] Jun, [facility] [address] [id number] [address] [place] [address] Jun, [facility] [address] [id number] [address] [place] [address] Jun, [facility] [address] [id number] [address] [place] [address] Jun, [facility] [address] [facility] [place] [id number] [address] [place] [address] May, Sebaceous cyst L72.3 [facility] [address] [id number] [address] [place] [address] May, Low back pain M54.5 [facility] [address] [facility] [place] [id number] [address] [place] [address] Apr, [facility] [address] [facility] [place] [id number] [address] [place] [address] Apr, Fibromyalgia M79.7 [facility] [address] [facility] [place] [id number] [address] [place] [address] Apr, Degenerative disc disease, l umbar M51.36 ; Fibromyalgia M79.7 ; Migraines G43.909 ; Hyperlipemia E78.5 ; Restless leg syndrome G25.81 ; Other intractable trigeminal autonomic cephalgia (TAC) G44.091 ; Secondary hypertension I15.9 and Anxiety F41.9 [facility] [address] [facility] [place] [id number] [address] [place] [address] March, 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 and HTN (hypertension) I10 [facility] [address] [facility] [place] [id number] [address] [place] [address] March, Fibromyalgia M79.7 [facility] [address] [facility] [place] [id number] [address] [place] [address] Feb, [facility] [address] [facility] [place] [id number] [address] [place] [address] Feb, [facility] [address] [facility] [place] [id number] [address] [place] [address] Feb, [facility] [address] [place] [id number] [address] [place] [address] Feb, Hyperlipemia E78.5 [facility] [address] [facility] [place] [id number] [address] [place] [address] Feb, Migraines G43.909 ; Fibromya lgia M79.7 ; Degenerative disc disease, lumbar M51.36 ; Restless leg syndrome G25.81 ; HTN (hypertension) I10 and Tobacco abuse counseling Z71.6 [facility] [address] [facility] [place] [id number] [address] [place] [address] Feb, [facility] [address] [place] [id number] [address] [place] [address] Jan, [facility] [address] [place] [id number] [address] [place] [address] Jan, [facility] [address] [place] [id number] [address] [place] [address] Dec, [facility] [address] [address] Dec, Degenerative disc disease, l umbar M51.36 ; Restless leg syndrome G25.81 ; Migraines G43.909 ; HTN (hypertension) I10 ; Fibromyalgia M79.7 and Other retirement (current) drug therapy Z79.899 [facility] [address] [place] [id number] [address] [place] [address] Dec, [facility] [address] [address] Nov, [facility] [address] [place] [id number] [address] [place] [address] Nov, [facility] [address] [address] Oct, [facility] [address] [place] [id number] [address] [place] [address] Oct, [facility] [address] [place] [id number] [address] [place] [address] Oct, [facility] [address] [place] [id number] [address] [place] [address] Sep, [facility] [address] [place] [id number] [address] [place] [address] Sep, Routine gynecological examin ation V72.31 ; Degenerative disc disease, lumbar M51.36 ; Fibromyalgia M79.7 ; Restless leg syndrome G25.81 ; Migraines G43.909 and Well woman exam Z01.419 [facility] [address] [address] [address] Sep, [facility] [address] [place] [id number] [place] [address] Aug, [facility] [address] [address] Aug, Migraines G43.909 ; Degenera tive disc disease, lumbar M51.36 ; Fibromyalgia M79.7 ; Restless leg syndrome G25.81 and HTN (hypertension) I10 [facility] [address] [address] Aug, [facility] [address] [address] Aug, [facility] [address] [address] Jul, [facility] [address] [address] Jul, [facility] [address] [address] Jun, Fibromyalgia 729.1 ; Lumbago 724.2 ; Restless leg syndrome 333.94 ; Migraines 346.90 and Elevated blood pressure (not hypertension) 796.2 [facility] [address] [address] May, Fibromyalgia 729.1 ; Nontoxi c uninodular goiter 241.0 ; Lumbago 724.2 ; Restless leg syndrome 333.94 and Migraines 346.90 [facility] [address] [address] Feb, [facility] [address] [address] Feb, [facility] [address] [address] Jan, [facility] [address] [id number] [address] [place] [address], [place] [address] 12 Jan, 2014 [facility] [address] [id number] [address] [place] [address], [place] [address] Jan, [facility] [address] [id number] [address] [place] [address], [place] [address] Jan, 2014 [facility] [address] [id number] [address] [place] [address], [place] [address] Jan, 2014 [facility] [address] [id number] [address] [place] [address], [place] [address] Jan, 2014 [facility] [address] [id number] [address] [place] [address], [place] [address] Jan, [facility] [address] [id number] [address] [place] [address], [place] [address] Jan, [facility] [address] [id number] [address] [place] [address], [place] [address] Dec, 2014 [facility] [address] [id number] [address] [place] [address], [place] [address] Dec, 2014 [facility] [address] [id number] [address] [place] [address], [place] [address] Dec, 2014 [facility] [address] [id number] [address] [place] [address], [place] [address] Dec, 2014 [facility] [address] [id number] [address] [place] [address], [place] [address] Dec, 2014 [facility] [address] [id number] [address] [place] [address], [place] [address] Dec, 2014 [facility] [address] [id number] [address] [place] [address], [place] [address] Dec, 2014 [facility] [address] [id number] [address] [place] [address], [place] [address] 09 Dec, 2014 [facility] [address] [id number] [address] [place] [address], [place] [address] Dec, [facility] [address] [facility] [place] [id number] [address] [place] [address] Dec, [facility] [address] [facility] [place] [id number] [address] [place] [address] Dec, [facility] [address] [facility] [place] [id number] [address] [place] [address] Nov, [facility] [address] [facility] [place] [id number] [address] [place] [address] Nov, IMMUNIZATIONS No Known Immunizations SOCIAL HISTORY Never Assessed REASON FOR VISIT Lab results PLAN OF CARE VITAL SIGNS MEDICATIONS Unknown [...]
--- OUTSIDE RECORDS SUMMARY | 2020-02-04 15:00 | XMS REPORT ---
Author Author WILLAM Caitielinda HASSAN Organization [facility] Address [address] [place] [address] Care Team Providers Care Director [employer] Name Role Phone QUARLESSONYA Lamas Unavailable PROBLEMS Type Condition ICD9-CM Code LOZ25-PA Code Onset Dates Condition S tatus SNOMED Code Problem Anxiety F41.9 Active 51475584 Problem OAB (overactive bladder) N32.81 Activ e 272594410 Problem Muscle spasms of both lower extremities M62.838 Active 912219560 Problem Chronic tension-type headache, intractable G44.221 Active 872183891 Problem Overweight (BMI 25.0-29.9) E66.3 Act ramana 182261052 Problem Chronic, continuous use of opioids F11.90 Active 393316075 Problem Chronic pain disorder G89.4 Active 395351353 Problem Type 2 diabetes mellitus wit h diabetic polyneuropathy, without long-term current use of insulin E11.42 Active 22616 006 Problem Type 2 diabetes mellitus wit h hyperglycemia, without long-term current use of insulin E11.65 Active 97894444 Problem Vitamin D deficiency E55.9 Active 35159731 Problem Fibromyalgia M79.7 Active 2596177 7 Problem HTN (hypertension) I10 Active 3 8737886 Problem Restless leg syndrome G25.81 Active 60126482 Problem Migraines G43.909 Active 84369885 Problem Degenerative disc disease, lumbar M51.36 Active 61314445 Problem Hyperlipemia E78.5 Active 8751552 4 ALLERGIES No Information ENCOUNTERS Encounter Location Date Diagnosis [facility] [address] [facility] [id number] [address] [place] [id number] Jul, [facility] [address] [facility] [id number] [address] [place] [phone] May, [facility] [address] [facility] [id number] [address] [place] [id number] May, Vitamin D deficiency E55.9 [facility] [address] [facility] [id number] [address] [place] [phone] May, Vitamin D deficiency E55.9 [facility] [id number] [place] [phone] May, Chronic pain disorder G89.4 [place] [address] [facility] [id number] [address] [place] [id number] May, Chronic pain disorder G89.4 [place] [address] [facility] [id number] [address] [place] [phone] Apr, Chronic pain disorder G89.4 [place] [address] [facility] [id number] [address] [place] [id number] Apr, Type 2 diabetes mellitus wit h diabetic polyneuropathy, without long-term current use of insulin E11.42 ; HTN (hypertension) I10 ; Hyperlipemia E78.5 ; Fibromyalgia M79.7 ; Degenerative disc disease, lumbar M51.36 ; Chronic pain disorder G89.4 ; Chronic, continuous use of opioids F11.90 ; Vitamin D deficiency E55.9 ; Anxiety F41.9 ; Chronic tension-type headache, intractable G44.221 and Overweight (BMI 25.0-29.9) E66.3 [place] [address] [facility] [id number] [address] [place] [phone] March, Chronic pain disorder G89.4 [place] [address] [facility] [id number] [address] [place] [id number] March, Type 2 diabetes mellitus wit h diabetic polyneuropathy, without long-term current use of insulin E11.42 [place] [address] [facility] [id number] [address] [place] [phone] Feb, Chronic pain disorder G89.4 [place] [address] [facility] [id number] [address] [place] [phone] Jan, [place] [address] [facility] [id number] [address] [place] [phone] Jan, Pharyngitis, unspecified vashti ology J02.9 ; Fibromyalgia M79.7 and Chronic pain disorder G89.4 [place] [address] [id number] Jan, [place] [address] [id number] Jan, [place] [address] [phone] Jan, [place] [address] [id number] Jan, Type 2 diabetes mellitus wit h diabetic polyneuropathy, without long-term current use of insulin E11.42 ; Type 2 diabetes mellitus with hyperglycemia, without long-term current use of insulin E11.65 ; Degenerative disc disease, lumbar M51.36 ; Fibromyalgia M79.7 ; Restless leg syndrome G25.81 ; HTN (hypertension) I10 ; Hyperlipemia E78.5 ; Anxiety F41.9 ; Migraines G43.909 and High risk medication use Z79.899 [place] [address] [address] Dec, Chronic pain disorder G89.4 [place] [address] [place] [id number] [address] [place] [id number] Nov, Chronic pain disorder G89.4 [place] [address] [place] [id number] [address] [place] [phone] Nov, [place] [address] [place] [id number] [address] [place] [id number] Nov, Type 2 diabetes mellitus wit h hyperglycemia, without long-term current use of insulin E11.65 ; HTN (hypertension) I10 ; Hyperlipemia E78.5 ; Restless leg syndrome G25.81 ; Fibromyalgia M79.7 ; Chronic tension-type headache, intractable G44.221 ; Migraines G43.909 ; Chronic pain disorder G89.4 and Overweight (BMI 25.0-29.9) E66.3 [place] [address] [place] [id number] [address] [place] [id number] Nov, [place] [address] [address] Oct, Degenerative disc disease, l umbar M51.36 [place] [address] [place] [id number] [place] [id number] Sep, Degenerative disc disease, l umbar M51.36 [place] [address] [place] [id number] [place] [phone] Sep, [place] [address] [id number] Aug, Degenerative disc disease, l umbar M51.36 [place] [address] [id number] Aug, Fall from height of greater than 3 feet W19.XXXA ; Hematoma of left hip, subsequent encounter S70.02XD ; Fibromyalgia M79.7 ; Muscle spasms of both lower extremities M62.838 ; Anxiety F41.9 ; Degenerative disc disease, lumbar M51.36 ; Chronic pain disorder G89.4 and Chronic, continuous use of opioids F11.90 [place] [address] [id number] Jul, [place] [address] [id number] Jul, Degenerative disc disease, l umbar M51.36 [place] [address] [place] [id number] [address] [place] [id number] Jun, Degenerative disc disease, l umbar M51.36 [place] [address] [place] [id number] [address] [place] [phone] May, Degenerative disc disease, l umbar M51.36 [place] [address] [place] [id number] [place] [phone] May, [facility] [address] [id number] [address] [place] [id number] Apr, Degenerative disc disease, l umbar M51.36 [facility] [address] [id number] [address] [place] [id number] Apr, Degenerative disc disease, l umbar M51.36 [facility] [address] [id number] [address] [place] [id number] March, Degenerative disc disease, l umbar M51.36 and Fall (on) (from) other stairs and steps, initial encounter W10.8XXA [facility] [address] [id number] [address] [place] [phone] March, [facility] [address] [id number] [address] [place] [phone] March, [facility] [address] [id number] [address] [place] [phone] March, [facility] [address] [id number] [address] [place] [phone] March, [facility] [address] [id number] [address] [place] [phone] Feb, [facility] [address] [id number] [address] [place] [phone] Jan, Fibromyalgia M79.7 [facility] [address] [id number] [address] [place] [phone] Jan, [facility] [address] [id number] [address] [place] [id number] Dec, Degenerative disc disease, l umbar M51.36 [facility] [address] [id number] [address] [place] [id number] Dec, [facility] [address] [id number] [address] [place] [id number] Nov, Degenerative disc disease, l umbar M51.36 ; Fibromyalgia M79.7 ; Restless leg syndrome G25.81 ; HTN (hypertension) I10 ; Hyperlipemia E78.5 ; Chronic tension-type headache, intractable G44.221 and OAB (overactive bladder) N32.81 [facility] [address] [facility] [id number] [address] [place] [id number] Nov, [facility] [address] [facility] [id number] [address] [place] [id number] Oct, [facility] [address] [facility] [id number] [address] [place] [phone] Oct, [facility] [address] [facility] [id number] [facility] [id number] Oct, [facility] [address] [facility] [id number] [address] [place] [phone] Sep, [facility] [address] [facility] [id number] [address] [place] [phone] Aug, [facility] [address] [facility] [id number] [address] [place] [phone] Aug, [facility] [address] [facility] [id number] [address] [place] [id number] Aug, Degenerative disc disease, l umbar M51.36 [facility] [address] [place] [id number] [address] [place] [id number] Aug, Degenerative disc disease, l umbar M51.36 ; Fibromyalgia M79.7 ; Migraines G43.909 ; Hyperlipemia E78.5 ; Muscle spasms of both lower extremities M62.838 ; Chronic tension-type headache, intractable G44.221 ; HTN (hypertension) I10 and Restless leg syndrome G25.81 [facility] [address] [facility] [id number] [address] [place] [id number] Jul, [facility] [address] [facility] [id number] [address] [place] [phone] Jul, [facility] [address] [facility] [id number] [address] [place] [phone] Jul, [facility] [address] [facility] [id number] [address] [place] [id number] Jun, Chronic tension-type headach e, intractable G44.221 ; Muscle spasms of both lower extremities M62.838 ; Fibromyalgia M79.7 ; Degenerative disc disease, lumbar M51.36 ; Restless leg syndrome G25.81 ; Migraines G43.909 ; Hyperlipemia E78.[address] [facility] [address] [facility] [id number] [address] [place] [phone] Jun, [facility] [address] [facility] [id number] [address] [place] [phone] Jun, [facility] [address] [place] [id number] [address] [place] [phone] Jun, [facility] [address] [place] [id number] [address] [place] [phone] Jun, [facility] [address] [place] [id number] [address] [place] [phone] May, Sebaceous cyst L72.3 [facility] [address] [facility] [id number] [address] [place] [id number] May, Low back pain M54.5 [facility] [address] [place] [id number] [address] [place] [phone] Apr, [facility] [address] [place] [id number] [address] [place] [id number] Apr, Fibromyalgia M79.7 [facility] [address] [place] [id number] [address] [place] [id number] Apr, Degenerative disc disease, l umbar M51.36 ; Fibromyalgia M79.7 ; Migraines G43.909 ; Hyperlipemia E78.5 ; Restless leg syndrome G25.81 ; Other intractable trigeminal autonomic cephalgia (TAC) G44.091 ; Secondary hypertension I15.[address] 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 [address] [place] [id number] [address] [place] [phone] March, Fibromyalgia M79.7 [facility] [address] [id number] Feb, [facility] [address] [place] [id number] [place] [phone] Feb, [facility] [address] [id number] Feb, [place] [address] [id number] Feb, Hyperlipemia E78.5 [place] [address] [address] Feb, Migraines G43.909 ; Fibromya lgia M79.7 ; Degenerative disc disease, lumbar M51.36 ; Restless leg syndrome G25.81 ; HTN (hypertension) I10 and Tobacco abuse counseling Z71.6 [place] [address] [place] [id number] [address] [place] [phone] Feb, [facility] [id number] [place] [phone] Jan, [facility] [address] [place] [id number] [address] [place] [phone] Jan, [facility] [address] [id number] Dec, 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 [address] [facility] [id number] [address] [place] [phone] Dec, [facility] [address] [id number] [address] [place] [id number] Nov, [facility] [address] [facility] [id number] [address] [place] [phone] Nov, [facility] [address] [id number] [address] [place] [id number] Oct, [facility] [address] [facility] [id number] [address] [place] [id number] Oct, [facility] [address] [place] [id number] [address] [place] [id number] Oct, [facility] [address] [facility] [id number] [address] [place] [phone] Sep, [facility] [address] [facility] [id number] [address] [place] [id number] Sep, Routine gynecological examin ation V72.31 ; Degenerative disc disease, lumbar M51.36 ; Fibromyalgia M79.7 ; Restless leg syndrome G25.81 ; Migraines G43.909 and Well woman exam Z01.419 [facility] [address] [facility] [id number] [address] [place] [phone] Sep, [facility] [address] [facility] [id number] [address] [place] [id number] Aug, [facility] [address] [facility] [id number] [address] [place] [id number] Aug, Migraines G43.909 ; Degenera tive disc disease, lumbar M51.36 ; Fibromyalgia M79.7 ; Restless leg syndrome G25.81 and HTN (hypertension) I10 [facility] [address] [facility] [id number] [address] [place] [id number] Aug, [facility] [address] [facility] [id number] [address] [place] [phone] Aug, [facility] [address] [facility] [id number] [address] [place] [phone] Jul, [facility] [address] [facility] [id number] [address] [place] [phone] Jul, [facility] [address] [facility] [id number] [address] [place] [phone] Jun, Fibromyalgia 729.1 ; Lumbago 724.2 ; Restless leg syndrome 333.94 ; Migraines 346.90 and Elevated blood pressure (not hypertension) 796.2 [facility] [address] [facility] [id number] [address] [place] [id number] May, Fibromyalgia 729.1 ; Nontoxi c uninodular goiter 241.0 ; Lumbago 724.2 ; Restless leg syndrome 333.[address] [facility] [address] [facility] [id number] [address] [place] [phone] Feb, [facility] [address] [facility] [id number] [address] [place] [phone] Feb, [facility] [address] [facility] [id number] [address] [place] [phone] Jan, [facility] [address] [facility] [id number] [address] [place] [phone] Jan, [facility] [address] [facility] [id number] [address] [place] [phone] Jan, [facility] [address] [facility] [id number] [address] [place] [phone] Jan, [facility] [address] [facility] [id number] [address] [place] [phone] Jan, [facility] [address] [facility] [id number] [address] [place] [phone] Jan, [facility] [address] [id number] [address] [place] [address], [place] [id number] Jan, [facility] [address] [id number] [address] [place] [address], [place] [id number] Jan, [facility] [address] [id number] [address] [place] [address], [place] [id number] Dec, 2014 [facility] [address] [id number] [address] [place] [address], [place] [id number] Dec, 2014 [facility] [address] [id number] [address] [place] [address], [place] [phone] Dec, 2014 [facility] [address] [id number] [address] [place] [address], [place] [id number] Dec, 2014 [facility] [address] [id number] [address] [place] [address], [place] [id number] Dec, 2014 [facility] [address] [id number] [address] [place] [phone] Dec, 2014 [facility] [address] [id number] [address] [place] [id number] Dec, 2014 [facility] [address] [id number] [address] [place] [phone] Dec, 2014 [facility] [address] [id number] [address] [place] [phone] Dec, 2014 [facility] [address] [id number] [address] [place] [phone] Dec, 2014 [facility] [address] [id number] [address] [place] [phone] Dec, 2014 [facility] [address] [id number] [address] [place] [phone] Nov, [facility] [address] [id number] [address] [place] [phone] Nov, IMMUNIZATIONS No Known Immunizations SOCIAL HISTORY Never Assessed REASON FOR VISIT medication refill PLAN OF CARE VITAL SIGNS MEDICATIONS Medication Instructions Dosage Frequency Start Date End Date Duration S chago Gabapentin 400 mg Orally 3 times a day TAKE ONE CAPSULE BY MOUTH THREE TIMES DAILY 8h 30 days Active RESULTS No Results PROCEDURES No [...]
--- OUTSIDE RECORDS SUMMARY | 2020-02-04 15:00 | XMS REPORT ---
Author Author WILLAM Caitielinda HASSAN Organization [facility] Address [address] [place] [address] Care Team Providers Care Area Coordinator Name Role Phone QUARLESSONYA Lamas Unavailable PROBLEMS Type Condition ICD9-CM Code [id number] Code Onset Dates Condition S tatus SNOMED Code Problem Anxiety F41.9 Active 11229940 Problem OAB (overactive bladder) N32.81 Activ e 549616531 Problem Muscle spasms of both lower extremities M62.838 Active 216452241 Problem Chronic tension-type headache, intractable G44.221 Active 071000994 Problem Overweight (BMI 25.0-29.9) E66.3 Act ramana 279497368 Problem Chronic, continuous use of opioids F11.90 Active 970465650 Problem Chronic pain disorder G89.4 Active 428695542 Problem Type 2 diabetes mellitus wit h diabetic polyneuropathy, without long-term current use of insulin E11.42 Active 61453 006 Problem Type 2 diabetes mellitus wit h hyperglycemia, without long-term current use of insulin E11.65 Active 83095024 Problem Vitamin D deficiency E55.9 Active 46144105 Problem Fibromyalgia M79.7 Active 1976711 7 Problem HTN (hypertension) I10 Active 3 3330294 Problem Restless leg syndrome G25.81 Active 86171650 Problem Migraines G43.909 Active 29114329 Problem Degenerative disc disease, lumbar M51.36 Active 19923976 Problem Hyperlipemia E78.5 Active 3562141 4 ALLERGIES No Information ENCOUNTERS Encounter Location Date Diagnosis [facility] [address] [facility] [id number] [address] [place] [address] Jul, [facility] [address] [facility] [id number] [address] [place] [id number] 16 Jun, 2018 Chronic pain disorder G89.4 [facility] [address] [facility] [id number] [address] [place] [address] Jun, [place] [address] [facility] [id number] [address] [place] [address] May, [place] [address] [facility] [id number] [address] [place] [address] May, Vitamin D deficiency E55.9 [facility] [address] [facility] [id number] [address] [place] [address] May, Vitamin D deficiency E55.[id number] [place] [address] May, Chronic pain disorder G89.4 [place] [address] [facility] [id number] [address] [place] [address] May, Chronic pain disorder G89.4 [place] [address] [facility] [id number] [address] [place] [address] Apr, Chronic pain disorder G89.4 [place] [address] [facility] [id number] [address] [place] [address] Apr, Type 2 diabetes mellitus wit h diabetic polyneuropathy, without long-term current use of insulin E11.42 ; HTN (hypertension) I10 ; Hyperlipemia E78.5 ; Fibromyalgia M79.7 ; Degenerative disc disease, lumbar M51.36 ; Chronic pain disorder G89.4 ; Chronic, continuous use of opioids F11.90 ; Vitamin D deficiency E55.9 ; Anxiety F41.9 ; Chronic tension-type headache, intractable G44.221 and Overweight (BMI 25.0-29.9) E66.3 [place] [address] [facility] [id number] [address] [place] [address] March, Chronic pain disorder G89.4 [place] [address] [facility] [id number] [address] [place] [address] March, Type 2 diabetes mellitus wit h diabetic polyneuropathy, without long-term current use of insulin E11.42 [place] [address] [facility] [id number] [address] [place] [address] Feb, Chronic pain disorder G89.4 [facility] [address] [facility] [id number] [address] [place] [address] Jan, [facility] [address] [place] [id number] [address] [place] [address] Jan, Pharyngitis, unspecified vashti ology J02.9 ; Fibromyalgia M79.7 and Chronic pain disorder G89.4 [facility] [address] [facility] [id number] [address] [place] [address] Jan, [facility] [address] [facility] [id number] [address] [place] [address] Jan, [facility] [address] [place] [id number] [address] [place] [address] Jan, [facility] [address] [place] [id number] [address] [place] [address] Jan, Type 2 diabetes mellitus wit h diabetic polyneuropathy, without long-term current use of insulin E11.42 ; Type 2 diabetes mellitus with hyperglycemia, without long-term current use of insulin E11.65 ; Degenerative disc disease, lumbar M51.36 ; Fibromyalgia M79.7 ; Restless leg syndrome G25.81 ; HTN (hypertension) I10 ; Hyperlipemia E78.5 ; Anxiety F41.9 ; Migraines G43.909 and High risk medication use Z79.899 [facility] [address] [place] [id number] [address] [place] [address] Dec, Chronic pain disorder G89.4 [facility] [address] [facility] [id number] [address] [place] [address] Nov, Chronic pain disorder G89.4 [facility] [address] [place] [id number] [address] [place] [address] Nov, [facility] [address] [place] [id number] [address] [place] [address] Nov, Type 2 diabetes mellitus wit h hyperglycemia, without long-term current use of insulin E11.65 ; HTN (hypertension) I10 ; Hyperlipemia E78.5 ; Restless leg syndrome G25.81 ; Fibromyalgia M79.7 ; Chronic tension-type headache, intractable G44.221 ; Migraines G43.909 ; Chronic pain disorder G89.4 and Overweight (BMI 25.0-29.9) E66.[address] [address] Nov, [address] [address] Oct, Degenerative disc disease, l umbar M51.[address] [address] Sep, Degenerative disc disease, l umbar M51.[address] [address] Sep, [address] [address] Aug, Degenerative disc disease, l umbar M51.[address] [address] Aug, Fall from height of greater than 3 feet W19.XXXA ; Hematoma of left hip, subsequent encounter S70.02XD ; Fibromyalgia M79.7 ; Muscle spasms of both lower extremities M62.838 ; Anxiety F41.9 ; Degenerative disc disease, lumbar M51.36 ; Chronic pain disorder G89.4 and Chronic, continuous use of opioids F11.[address] [address] Jul, [address] [address] Jul, Degenerative disc disease, l umbar M51.[address] [address] Jun, Degenerative disc disease, l umbar M51.36 [facility] [address] [id number] [address] [place] [address] May, Degenerative disc disease, l umbar M51.36 [facility] [address] [id number] [address] [place] [address] May, [facility] [address] [id number] [address] [place] [address] Apr, Degenerative disc disease, l umbar M51.36 [facility] [address] [id number] [address] [place] [address] Apr, Degenerative disc disease, l umbar M51.36 [facility] [address] [id number] [address] [place] [address] March, Degenerative disc disease, l umbar M51.36 and Fall (on) (from) other stairs and steps, initial encounter W10.8XXA [facility] [address] [id number] [address] [place] [address] March, [facility] [address] [id number] [address] [place] [id number] March, [facility] [address] [id number] [address] [place] [address] March, [facility] [address] [id number] [address] [place] [address] March, [facility] [address] [id number] [address] [place] [address] Feb, [facility] [address] [id number] [address] [place] [address] Jan, Fibromyalgia M79.7 [facility] [address] [id number] [address] [place] [address] Jan, [facility] [address] [id number] [address] [place] [address] Dec, Degenerative disc disease, l umbar M51.36 [facility] [address] [facility] [id number] [address] [place] [address] Dec, [facility] [address] [facility] [id number] [address] [place] [address] Nov, Degenerative disc disease, l umbar M51.36 ; Fibromyalgia M79.7 ; Restless leg syndrome G25.81 ; HTN (hypertension) I10 ; Hyperlipemia E78.5 ; Chronic tension-type headache, intractable G44.221 and OAB (overactive bladder) N32.81 [facility] [address] [facility] [id number] [address] [place] [address] Nov, [facility] [address] [facility] [id number] [address] [place] [address] Oct, [facility] [address] [facility] [id number] [address] [place] [address] Oct, [id number] [place] [id number] Oct, [facility] [address] [facility] [id number] [address] [place] [address] Sep, [facility] [address] [facility] [id number] [address] [place] [id number] Aug, [facility] [address] [facility] [id number] [address] [place] [address] Aug, [facility] [address] [facility] [id number] [address] [place] [address] Aug, Degenerative disc disease, l umbar M51.36 [facility] [address] [facility] [id number] [address] [place] [address] Aug, Degenerative disc disease, l umbar M51.36 ; Fibromyalgia M79.7 ; Migraines G43.909 ; Hyperlipemia E78.5 ; Muscle spasms of both lower extremities M62.838 ; Chronic tension-type headache, intractable G44.221 ; HTN (hypertension) I10 and Restless leg syndrome G25.81 [place] [id number] [id number] [address] [place] [id number] 29 Jul, 2016 [facility] [address] [id number] [address] [place] [address] Jul, [facility] [address] [id number] [address] [place] [id number] Jul, [facility] [address] [id number] [address] [place] [address] Jun, Chronic tension-type headach e, intractable G44.221 ; Muscle spasms of both lower extremities M62.838 ; Fibromyalgia M79.7 ; Degenerative disc disease, lumbar M51.36 ; Restless leg syndrome G25.81 ; Migraines G43.909 ; Hyperlipemia E78.5 and Anxiety F41.9 [facility] [address] [id number] [address] [place] [id number] Jun, [facility] [address] [id number] [address] [place] [address] Jun, [facility] [address] [id number] [address] [place] [address] Jun, [facility] [address] [id number] [address] [place] [address] Jun, [facility] [address] [id number] [address] [place] [address] May, Sebaceous cyst L72.3 [facility] [address] [id number] [address] [place] [address] May, Low back pain M54.5 [facility] [address] [id number] [address] [place] [address] Apr, [facility] [address] [id number] [address] [place] [address] Apr, Fibromyalgia M79.7 [facility] [address] [id number] [address] [place] [address] Apr, Degenerative disc disease, l umbar M51.36 ; Fibromyalgia M79.7 ; Migraines G43.909 ; Hyperlipemia E78.5 ; Restless leg syndrome G25.81 ; Other intractable trigeminal autonomic cephalgia (TAC) G44.091 ; Secondary hypertension I15.9 and Anxiety F41.9 [facility] [address] [facility] [id number] [address] [place] [address] March, Other chcf (current) dr holloway therapy Z79.899 and HTN (hypertension) I10 [facility] [address] [id number] [address] [place] [address] March, Fibromyalgia M79.7 [facility] [address] [id number] [address] [place] [id number] Feb, [facility] [address] [facility] [id number] [address] [place] [address] Feb, [facility] [address] [id number] [address] [place] [address] Feb, [facility] [address] [facility] [id number] [address] [place] [address] Feb, Hyperlipemia E78.5 [facility] [address] [facility] [id number] [address] [place] [address] Feb, Migraines G43.909 ; Fibromya lgia M79.7 ; Degenerative disc disease, lumbar M51.36 ; Restless leg syndrome G25.81 ; HTN (hypertension) I10 and Tobacco abuse counseling Z71.6 [facility] [address] [id number] [address] [place] [address] Feb, [facility] [address] [facility] [id number] [address] [place] [id number] Jan, [facility] [address] [facility] [id number] [address] [place] [address] Jan, [facility] [address] [facility] [id number] [address] [place] [address] Dec, [facility] [address] [id number] [address] [place] [id number] 12 Dec, 2015 HTN (hypertension) I10 ; Deg enerative disc disease, lumbar M51.36 ; Restless leg syndrome G25.81 ; Migraines G43.909 ; Fibromyalgia M79.7 and Other medical appliance maker (current) drug therapy Z79.899 [facility] [address] [id number] [address] [place] [address] Dec, [facility] [address] [id number] [address] [place] [address] Nov, [facility] [address] [id number] [address] [place] [id number] Nov, [facility] [address] [id number] [address] [place] [id number] Oct, [facility] [address] [id number] [address] [place] [address] Oct, [facility] [address] [id number] [address] [place] [address] Oct, [facility] [address] [id number] [address] [place] [address] Sep, [facility] [address] [id number] [address] [place] [address] Sep, Routine gynecological examin ation V72.31 ; Degenerative disc disease, lumbar M51.36 ; Fibromyalgia M79.7 ; Restless leg syndrome G25.81 ; Migraines G43.909 and Well woman exam Z01.419 [facility] [address] [id number] [address] [place] [address] Sep, [facility] [address] [id number] [address] [place] [address] Aug, [facility] [address] [id number] [address] [place] [address] Aug, Migraines G43.909 ; Degenera tive disc disease, lumbar M51.36 ; Fibromyalgia M79.7 ; Restless leg syndrome G25.81 and HTN (hypertension) I10 [facility] [address] [place] [id number] [place] [address] Aug, [facility] [address] [place] [id number] [place] [address] Aug, [facility] [address] [place] [id number] [place] [address] Jul, [facility] [address] [place] [id number] [place] [address] Jul, [facility] [address] [address] Jun, Fibromyalgia 729.1 ; Lumbago 724.2 ; Restless leg syndrome 333.94 ; Migraines 346.90 and Elevated blood pressure (not hypertension) 796.2 [facility] [address] [address] May, Fibromyalgia 729.1 ; Nontoxi c uninodular goiter 241.0 ; Lumbago 724.2 ; Restless leg syndrome 333.94 and Migraines 346.90 [facility] [address] [place] [id number] [place] [address] Feb, [facility] [address] [address] Feb, [facility] [address] [place] [id number] [place] [address] Jan, [facility] [address] [address] Jan, [facility] [address] [place] [id number] [place] [address] Jan, [facility] [address] [address] Jan, [facility] [address] [id number] [address] [place] [address], [place] [address] Jan, [facility] [address] [id number] [address] [place] [address], [place] [address] Jan, [facility] [address] [id number] [address] [place] [address], [place] [address] Jan, [facility] [address] [id number] [address] [place] [address], [place] [address] Jan, [facility] [address] [id number] [address] [place] [address], [place] [address] Dec, 2014 [facility] [address] [id number] [address] [place] [address], [place] [address] Dec, 2014 [facility] [address] [id number] [address] [place] [address], [place] [address] Dec, 2014 [facility] [address] [id number] [address] [place] [address], [place] [address] Dec, 2014 [facility] [address] [id number] [address] [place] [address], [place] [address] Dec, 2014 [facility] [address] [id number] [address] [place] [address], [place] [address] Dec, 2014 [facility] [address] [id number] [address] [place] [address], [place] [address] Dec, 2014 [facility] [address] [id number] [address] [place] [id number] Dec, 2014 [facility] [address] [id number] [address] [place] [address], [place] [address] Dec, 2014 [facility] [address] [id number] [address] [place] [address] Dec, 2014 [facility] [address] [id number] [address] [place] [id number] 04 Dec, 2014 [facility] [address] [facility] [id number] [address] [place] [address] Nov, [facility] [address] [facility] [id number] [address] [place] [address] Nov, IMMUNIZATIONS No Known Immunizations SOCIAL HISTORY Never Assessed REASON FOR VISIT Controlled Med Refill PLAN OF CARE VITAL SIGNS MEDICATIONS Medication Instructions Dosage Frequency Start Date End Date Duration S tatus Hydrocodone-Acetaminophen 10-325 MG Orally every 6 hrs 1 tablet as needed 6h Apr, 28 days Active RESULTS No Results PROCEDURES [...]
--- OUTSIDE RECORDS SUMMARY | 2020-02-04 15:00 | XMS REPORT ---
Author Author WILLAM Caitielinda HASSAN Organization [facility] Address [address] [place] [address] Care Team Providers Care Laboratory Technologist Name Role Phone QUARLESSONYA Lamas Unavailable PROBLEMS Type Condition ICD9-CM Code SDX84-TR Code Onset Dates Condition S tatus SNOMED Code Problem Anxiety F41.9 Active 10266890 Problem OAB (overactive bladder) N32.81 Activ e 914338467 Problem Muscle spasms of both lower extremities M62.838 Active 482972336 Problem Chronic tension-type headache, intractable G44.221 Active 925782200 Problem Overweight (BMI 25.0-29.9) E66.3 Act ramana 842952230 Problem Chronic, continuous use of opioids F11.90 Active 410253423 Problem Chronic pain disorder G89.4 Active 223530323 Problem Type 2 diabetes mellitus wit h diabetic polyneuropathy, without long-term current use of insulin E11.42 Active 70734 006 Problem Type 2 diabetes mellitus wit h hyperglycemia, without long-term current use of insulin E11.65 Active 10530589 Problem Vitamin D deficiency E55.9 Active 15216538 Problem Fibromyalgia M79.7 Active 4569655 7 Problem HTN (hypertension) I10 Active 3 2120257 Problem Restless leg syndrome G25.81 Active 12274184 Problem Migraines G43.909 Active 34593525 Problem Degenerative disc disease, lumbar M51.36 Active 63522178 Problem Hyperlipemia E78.5 Active 1950255 4 ALLERGIES No Information ENCOUNTERS Encounter Location Date Diagnosis [facility] [address] [facility] [id number] [address] [place] [phone] Jul, [facility] [address] [facility] [id number] [address] [place] [address] 16 Jun, 2018 Chronic pain disorder G89.4 [facility] [address] [facility] [id number] [address] [place] [address] Jun, [place] [address] [facility] [id number] [address] [place] [address] May, [place] [address] [facility] [id number] [address] [place] [address] May, Vitamin D deficiency E55.9 [facility] [address] [facility] [id number] [address] [place] [address] May, Vitamin D deficiency E55.[address] [id number] [place] [phone] May, Chronic pain disorder G89.4 [place] [address] [facility] [id number] [address] [place] [phone] May, Chronic pain disorder G89.4 [place] [address] [facility] [id number] [address] [place] [address] Apr, Chronic pain disorder G89.4 [place] [address] [facility] [id number] [address] [place] [address] Apr, Type 2 diabetes mellitus wit h diabetic polyneuropathy, without long-term current use of insulin E11.42 ; HTN (hypertension) I10 ; Hyperlipemia E78.5 ; Fibromyalgia M79.7 ; Degenerative disc disease, lumbar M51.36 ; Chronic pain disorder G89.4 ; Chronic, continuous use of opioids F11.90 ; Vitamin D deficiency E55.9 ; Anxiety F41.9 ; Chronic tension-type headache, intractable G44.221 and Overweight (BMI 25.0-29.9) E66.3 [place] [address] [facility] [id number] [address] [place] [phone] March, Chronic pain disorder G89.4 [place] [address] [facility] [id number] [address] [place] [address] March, Type 2 diabetes mellitus wit h diabetic polyneuropathy, without long-term current use of insulin E11.42 [place] [address] [facility] [id number] [address] [place] [address] Feb, Chronic pain disorder G89.4 [facility] [address] [facility] [id number] [address] [place] [address] Jan, [facility] [address] [place] [id number] [address] [place] [phone] Jan, Pharyngitis, unspecified vashti ology J02.9 ; Fibromyalgia M79.7 and Chronic pain disorder G89.4 [facility] [address] [facility] [id number] [address] [place] [phone] Jan, [facility] [address] [facility] [id number] [address] [place] [phone] Jan, [facility] [address] [place] [id number] [address] [place] [address] Jan, [facility] [address] [place] [id number] [address] [place] [address] Jan, Type 2 diabetes mellitus wit h diabetic polyneuropathy, without long-term current use of insulin E11.42 ; Type 2 diabetes mellitus with hyperglycemia, without long-term current use of insulin E11.65 ; Degenerative disc disease, lumbar M51.36 ; Fibromyalgia M79.7 ; Restless leg syndrome G25.81 ; HTN (hypertension) I10 ; Hyperlipemia E78.5 ; Anxiety F41.9 ; Migraines G43.909 and High risk medication use Z79.899 [facility] [address] [place] [id number] [address] [place] [address] Dec, Chronic pain disorder G89.4 [facility] [address] [facility] [id number] [address] [place] [address] Nov, Chronic pain disorder G89.4 [facility] [address] [place] [id number] [address] [place] [address] Nov, [facility] [address] [place] [id number] [address] [place] [address] Nov, Type 2 diabetes mellitus wit h hyperglycemia, without long-term current use of insulin E11.65 ; HTN (hypertension) I10 ; Hyperlipemia E78.5 ; Restless leg syndrome G25.81 ; Fibromyalgia M79.7 ; Chronic tension-type headache, intractable G44.221 ; Migraines G43.909 ; Chronic pain disorder G89.4 and Overweight (BMI 25.0-29.9) E66.[address] [address] Nov, [address] [address] Oct, Degenerative disc disease, l umbar M51.[address] [address] Sep, Degenerative disc disease, l umbar M51.[address] [address] Sep, [address] [address] Aug, Degenerative disc disease, l umbar M51.[address] [address] Aug, Fall from height of greater than 3 feet W19.XXXA ; Hematoma of left hip, subsequent encounter S70.02XD ; Fibromyalgia M79.7 ; Muscle spasms of both lower extremities M62.838 ; Anxiety F41.9 ; Degenerative disc disease, lumbar M51.36 ; Chronic pain disorder G89.4 and Chronic, continuous use of opioids F11.[address] [address] Jul, [address] [address] Jul, Degenerative disc disease, l umbar M51.[address] [address] Jun, Degenerative disc disease, l umbar M51.36 [facility] [address] [id number] [address] [place] [address] May, Degenerative disc disease, l umbar M51.36 [facility] [address] [id number] [address] [place] [address] May, [facility] [address] [id number] [address] [place] [address] Apr, Degenerative disc disease, l umbar M51.36 [facility] [address] [id number] [address] [place] [address] Apr, Degenerative disc disease, l umbar M51.36 [facility] [address] [id number] [address] [place] [phone] March, Degenerative disc disease, l umbar M51.36 and Fall (on) (from) other stairs and steps, initial encounter W10.8XXA [facility] [address] [id number] [address] [place] [phone] March, [facility] [address] [id number] [address] [place] [address] March, [facility] [address] [id number] [address] [place] [address] March, [facility] [address] [id number] [address] [place] [phone] March, [facility] [address] [id number] [address] [place] [phone] Feb, [facility] [address] [id number] [address] [place] [phone] Jan, Fibromyalgia M79.7 [facility] [address] [id number] [address] [place] [address] Jan, [facility] [address] [id number] [address] [place] [address] Dec, Degenerative disc disease, l umbar M51.36 [facility] [address] [facility] [id number] [address] [place] [address] Dec, [facility] [address] [facility] [id number] [address] [place] [address] Nov, Degenerative disc disease, l umbar M51.36 ; Fibromyalgia M79.7 ; Restless leg syndrome G25.81 ; HTN (hypertension) I10 ; Hyperlipemia E78.5 ; Chronic tension-type headache, intractable G44.221 and OAB (overactive bladder) N32.81 [facility] [address] [facility] [id number] [address] [place] [address] Nov, [facility] [address] [facility] [id number] [address] [place] [address] Oct, [facility] [address] [facility] [id number] [address] [place] [address] Oct, [address] [id number] [place] [id number] Oct, [facility] [address] [facility] [id number] [address] [place] [phone] Sep, [facility] [address] [facility] [id number] [address] [place] [phone] Aug, [facility] [address] [facility] [id number] [address] [place] [address] Aug, [facility] [address] [facility] [id number] [address] [place] [id number] Aug, Degenerative disc disease, l umbar M51.36 [facility] [address] [facility] [id number] [address] [place] [address] Aug, Degenerative disc disease, l umbar M51.36 ; Fibromyalgia M79.7 ; Migraines G43.909 ; Hyperlipemia E78.5 ; Muscle spasms of both lower extremities M62.838 ; Chronic tension-type headache, intractable G44.221 ; HTN (hypertension) I10 and Restless leg syndrome G25.81 [place] [address] [id number] [address] [place] [phone] 29 Jul, 2016 [facility] [address] [id number] [address] [place] [address] Jul, [facility] [address] [id number] [address] [place] [address] Jul, [facility] [address] [id number] [address] [place] [address] Jun, Chronic tension-type headach e, intractable G44.221 ; Muscle spasms of both lower extremities M62.838 ; Fibromyalgia M79.7 ; Degenerative disc disease, lumbar M51.36 ; Restless leg syndrome G25.81 ; Migraines G43.909 ; Hyperlipemia E78.5 and Anxiety F41.9 [facility] [address] [id number] [address] [place] [address] Jun, [facility] [address] [id number] [address] [place] [address] Jun, [facility] [address] [id number] [address] [place] [address] Jun, [facility] [address] [id number] [address] [place] [id number] Jun, [facility] [address] [id number] [address] [place] [address] May, Sebaceous cyst L72.3 [facility] [address] [id number] [address] [place] [address] May, Low back pain M54.5 [facility] [address] [id number] [address] [place] [address] Apr, [facility] [address] [id number] [address] [place] [address] Apr, Fibromyalgia M79.7 [facility] [address] [id number] [address] [place] [address] Apr, Degenerative disc disease, l umbar M51.36 ; Fibromyalgia M79.7 ; Migraines G43.909 ; Hyperlipemia E78.5 ; Restless leg syndrome G25.81 ; Other intractable trigeminal autonomic cephalgia (TAC) G44.091 ; Secondary hypertension I15.9 and Anxiety F41.9 [facility] [address] [facility] [id number] [address] [place] [address] March, Other mcc (current) dr holloway therapy Z79.899 and HTN (hypertension) I10 [facility] [address] [id number] [address] [place] [phone] March, Fibromyalgia M79.7 [facility] [address] [id number] [address] [place] [phone] Feb, [facility] [address] [facility] [id number] [address] [place] [phone] Feb, [facility] [address] [id number] [address] [place] [phone] Feb, [facility] [address] [facility] [id number] [address] [place] [address] Feb, Hyperlipemia E78.5 [facility] [address] [facility] [id number] [address] [place] [address] Feb, Migraines G43.909 ; Fibromya lgia M79.7 ; Degenerative disc disease, lumbar M51.36 ; Restless leg syndrome G25.81 ; HTN (hypertension) I10 and Tobacco abuse counseling Z71.6 [facility] [address] [id number] [address] [place] [phone] Feb, [facility] [address] [facility] [id number] [address] [place] [phone] Jan, [facility] [address] [facility] [id number] [address] [place] [phone] Jan, [facility] [address] [facility] [id number] [address] [place] [id number] Dec, [facility] [address] [id number] [address] [place] [id number] 12 Dec, 2015 HTN (hypertension) I10 ; Deg enerative disc disease, lumbar M51.36 ; Restless leg syndrome G25.81 ; Migraines G43.909 ; Fibromyalgia M79.7 and Other terminal carman (current) drug therapy Z79.899 [facility] [address] [id number] [address] [place] [address] Dec, [facility] [address] [id number] [address] [place] [address] Nov, [facility] [address] [id number] [address] [place] [address] Nov, [facility] [address] [id number] [address] [place] [phone] Oct, [facility] [address] [id number] [address] [place] [address] Oct, [facility] [address] [id number] [address] [place] [address] Oct, [facility] [address] [id number] [address] [place] [address] Sep, [facility] [address] [id number] [address] [place] [address] Sep, Routine gynecological examin ation V72.31 ; Degenerative disc disease, lumbar M51.36 ; Fibromyalgia M79.7 ; Restless leg syndrome G25.81 ; Migraines G43.909 and Well woman exam Z01.419 [facility] [address] [id number] [address] [place] [address] Sep, [facility] [address] [id number] [address] [place] [address] Aug, [facility] [address] [id number] [address] [place] [address] Aug, Migraines G43.909 ; Degenera tive disc disease, lumbar M51.36 ; Fibromyalgia M79.7 ; Restless leg syndrome G25.81 and HTN (hypertension) I10 [facility] [address] [place] [id number] [place] [address] Aug, [facility] [address] [place] [id number] [place] [phone] Aug, [facility] [address] [place] [id number] [place] [address] Jul, [facility] [address] [place] [id number] [place] [address] Jul, [facility] [address] [address] Jun, Fibromyalgia 729.1 ; Lumbago 724.2 ; Restless leg syndrome 333.94 ; Migraines 346.90 and Elevated blood pressure (not hypertension) 796.2 [facility] [address] [address] May, Fibromyalgia 729.1 ; Nontoxi c uninodular goiter 241.0 ; Lumbago 724.2 ; Restless leg syndrome 333.94 and Migraines 346.90 [facility] [address] [place] [id number] [place] [phone] Feb, [facility] [address] [address] Feb, [facility] [address] [place] [id number] [place] [phone] Jan, [facility] [address] [phone] Jan, [facility] [address] [place] [id number] [place] [phone] Jan, [facility] [address] [id number] Jan, [facility] [address] [id number] [address] [place] [address], [place] [address] Jan, [facility] [address] [id number] [address] [place] [address], [place] [address] Jan, [facility] [address] [id number] [address] [place] [address], [place] [address] Jan, [facility] [address] [id number] [address] [place] [address], [place] [address] Jan, [facility] [address] [id number] [address] [place] [address], [place] [address] Dec, 2014 [facility] [address] [id number] [address] [place] [address], [place] [address] Dec, 2014 [facility] [address] [id number] [address] [place] [address], [place] [address] Dec, 2014 [facility] [address] [id number] [address] [place] [address], [place] [address] Dec, 2014 [facility] [address] [id number] [address] [place] [address], [place] [address] Dec, 2014 [facility] [address] [id number] [address] [place] [address], [place] [address] Dec, 2014 [facility] [address] [id number] [address] [place] [address], [place] [address] Dec, 2014 [facility] [address] [id number] [address] [place] [phone] Dec, 2014 [facility] [address] [id number] [address] [place] [address], [place] [address] Dec, 2014 [facility] [address] [id number] [address] [place] [address] Dec, 2014 [facility] [address] [id number] [address] [place] [phone] 04 Dec, 2014 [facility] [address] [facility] [id number] [address] [place] [address] Nov, [facility] [address] [facility] [id number] [address] [place] [address] Nov, IMMUNIZATIONS No Known Immunizations SOCIAL HISTORY Never Assessed REASON FOR VISIT controlled med refill (04/17) PLAN OF CARE VITAL SIGNS MEDICATIONS Medication Instructions Dosage Frequency Start Date End Date Duration S tatus Hydrocodone-Acetaminophen 10-325 MG Orally every 6 hrs 1 tablet as needed 6h March, 28 days Active RESULTS No Results PROCEDURES [...]
--- OUTSIDE RECORDS SUMMARY | 2020-02-04 15:00 | XMS REPORT ---
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 Name Role Phone QUARLESSONYA Lamas Unavailable PROBLEMS Type Condition ICD9-CM Code FMH91-ZN Code Onset Dates Condition S tatus SNOMED Code Problem Anxiety F41.9 Active 48674712 Problem OAB (overactive bladder) N32.81 Activ e 436230012 Problem Muscle spasms of both lower extremities M62.838 Active 660001201 Problem Chronic tension-type headache, intractable G44.221 Active 198328482 Problem Overweight (BMI 25.0-29.9) E66.3 Act ramana 414031863 Problem Chronic, continuous use of opioids F11.90 Active 357724006 Problem Chronic pain disorder G89.4 Active 681599850 Problem Type 2 diabetes mellitus wit h diabetic polyneuropathy, without long-term current use of insulin E11.42 Active 35270 006 Problem Type 2 diabetes mellitus wit h hyperglycemia, without long-term current use of insulin E11.65 Active 77414340 Problem Vitamin D deficiency E55.9 Active 66044989 Problem Fibromyalgia M79.7 Active 6340836 7 Problem HTN (hypertension) I10 Active 3 1382346 Problem Restless leg syndrome G25.81 Active 19555288 Problem Migraines G43.909 Active 00065477 Problem Degenerative disc disease, lumbar M51.36 Active 44278744 Problem Hyperlipemia E78.5 Active 3432123 4 ALLERGIES Substance Reaction Event Type Date Status Amoxicillin hives Drug Allergy Apr, Active tape rash Non Drug Allergy Apr, Active ENCOUNTERS Encounter Location Date Diagnosis [facility] [address] [facility] [id number] [address] [place] [phone] Jul, [facility] [address] [facility] [id number] [address] [place] [phone] Jun, Chronic pain disorder G89.4 [facility] [address] [facility] [id number] [address] [place] [phone] Jun, [facility] [address] [facility] [id number] [address] [place] [phone] May, [facility] [address] [facility] [id number] [address] [place] [phone] May, Vitamin D deficiency E55.9 [facility] [address] [facility] [id number] [address] [place] [phone] May, Vitamin D deficiency E55.[address] [id number] [place] [phone] May, Chronic pain disorder G89.4 [facility] [address] [facility] [id number] [address] [place] [phone] May, Chronic pain disorder G89.4 [facility] [address] [facility] [id number] [address] [place] [phone] Apr, Chronic pain disorder G89.4 [facility] [address] [facility] [id number] [address] [place] [phone] Apr, Type 2 diabetes mellitus wit h diabetic polyneuropathy, without long-term current use of insulin E11.42 ; HTN (hypertension) I10 ; Hyperlipemia E78.5 ; Fibromyalgia M79.7 ; Degenerative disc disease, lumbar M51.36 ; Chronic pain disorder G89.4 ; Chronic, continuous use of opioids F11.90 ; Vitamin D deficiency E55.9 ; Anxiety F41.9 ; Chronic tension-type headache, intractable G44.221 and Overweight (BMI 25.0-29.9) E66.3 [facility] [address] [facility] [id number] [address] [place] [phone] March, Chronic pain disorder G89.4 [facility] [address] [facility] [id number] [address] [place] [phone] March, Type 2 diabetes mellitus wit h diabetic polyneuropathy, without long-term current use of insulin E11.42 [facility] [address] [facility] [id number] [address] [place] [phone] Feb, Chronic pain disorder G89.4 [facility] [address] [facility] [id number] [address] [place] [phone] Jan, [facility] [address] [place] [id number] [address] [place] [phone] Jan, Pharyngitis, unspecified vashti ology J02.9 ; Fibromyalgia M79.7 and Chronic pain disorder G89.4 [facility] [address] [place] [id number] [address] [place] [phone] Jan, [facility] [address] [place] [id number] [address] [place] [phone] Jan, [facility] [address] [place] [id number] [address] [place] [phone] Jan, [facility] [address] [place] [id number] [address] [place] [phone] Jan, Type 2 diabetes mellitus wit h diabetic polyneuropathy, without long-term current use of insulin E11.42 ; Type 2 diabetes mellitus with hyperglycemia, without long-term current use of insulin E11.65 ; Degenerative disc disease, lumbar M51.36 ; Fibromyalgia M79.7 ; Restless leg syndrome G25.81 ; HTN (hypertension) I10 ; Hyperlipemia E78.5 ; Anxiety F41.9 ; Migraines G43.909 and High risk medication use Z79.899 [facility] [address] [place] [id number] [address] [place] [phone] Dec, Chronic pain disorder G89.4 [facility] [address] [place] [id number] [address] [place] [phone] Nov, Chronic pain disorder G89.4 [facility] [address] [place] [id number] [address] [place] [phone] Nov, [facility] [address] [place] [id number] [address] [place] [phone] Nov, Type 2 diabetes mellitus wit h hyperglycemia, without long-term current use of insulin E11.65 ; HTN (hypertension) I10 ; Hyperlipemia E78.5 ; Restless leg syndrome G25.81 ; Fibromyalgia M79.7 ; Chronic tension-type headache, intractable G44.221 ; Migraines G43.909 ; Chronic pain disorder G89.4 and Overweight (BMI 25.0-29.9) E66.[address] [address] Nov, [address] [address] Oct, Degenerative disc disease, l umbar M51.[address] [address] Sep, Degenerative disc disease, l umbar M51.[address] [address] Sep, [address] [address] Aug, Degenerative disc disease, l umbar M51.[address] [address] Aug, Fall from height of greater than 3 feet W19.XXXA ; Hematoma of left hip, subsequent encounter S70.02XD ; Fibromyalgia M79.7 ; Muscle spasms of both lower extremities M62.838 ; Anxiety F41.9 ; Degenerative disc disease, lumbar M51.36 ; Chronic pain disorder G89.4 and Chronic, continuous use of opioids F11.[address] [address] Jul, [address] [address] Jul, Degenerative disc disease, l umbar M51.[address] [address] Jun, Degenerative disc disease, l umbar M51.36 [facility] [address] [id number] [address] [place] [phone] May, Degenerative disc disease, l umbar M51.36 [facility] [address] [id number] [address] [place] [phone] May, [facility] [address] [id number] [address] [place] [phone] Apr, Degenerative disc disease, l umbar M51.36 [facility] [address] [id number] [address] [place] [phone] Apr, Degenerative disc disease, l umbar M51.36 [facility] [address] [id number] [address] [place] [phone] March, Degenerative disc disease, l umbar M51.36 and Fall (on) (from) other stairs and steps, initial encounter W10.8XXA [facility] [address] [id number] [address] [place] [phone] March, [facility] [address] [id number] [address] [place] [phone] March, [facility] [address] [id number] [address] [place] [phone] March, [facility] [address] [id number] [address] [place] [phone] March, [facility] [address] [id number] [address] [place] [phone] Feb, [facility] [address] [id number] [address] [place] [phone] Jan, Fibromyalgia M79.7 [facility] [address] [id number] [address] [place] [phone] Jan, [facility] [address] [id number] [address] [place] [phone] Dec, Degenerative disc disease, l umbar M51.36 [facility] [address] [facility] [id number] [address] [place] [phone] Dec, [facility] [address] [facility] [id number] [address] [place] [address] Nov, Degenerative disc disease, l umbar M51.36 ; Fibromyalgia M79.7 ; Restless leg syndrome G25.81 ; HTN (hypertension) I10 ; Hyperlipemia E78.5 ; Chronic tension-type headache, intractable G44.221 and OAB (overactive bladder) N32.81 [facility] [address] [facility] [id number] [address] [place] [phone] Nov, [facility] [address] [facility] [id number] [address] [place] [phone] Oct, [facility] [address] [facility] [id number] [address] [place] [phone] Oct, [address] [id number] [place] [id number] Oct, [facility] [address] [facility] [id number] [address] [place] [phone] Sep, [facility] [address] [facility] [id number] [address] [place] [phone] Aug, [facility] [address] [facility] [id number] [address] [place] [phone] Aug, [facility] [address] [facility] [id number] [address] [place] [phone] Aug, Degenerative disc disease, l umbar M51.36 [facility] [address] [facility] [id number] [address] [place] [phone] Aug, Degenerative disc disease, l umbar M51.36 ; Fibromyalgia M79.7 ; Migraines G43.909 ; Hyperlipemia E78.5 ; Muscle spasms of both lower extremities M62.838 ; Chronic tension-type headache, intractable G44.221 ; HTN (hypertension) I10 and Restless leg syndrome G25.81 [facility] [address] [id number] [address] [place] [phone] 29 Jul, 2016 [facility] [address] [id number] [address] [place] [phone] 15 Jul, 2016 [facility] [address] [id number] [address] [place] [phone] Jul, [facility] [address] [id number] [address] [place] [phone] Jun, Chronic tension-type headach e, intractable G44.221 ; Muscle spasms of both lower extremities M62.838 ; Fibromyalgia M79.7 ; Degenerative disc disease, lumbar M51.36 ; Restless leg syndrome G25.81 ; Migraines G43.909 ; Hyperlipemia E78.5 and Anxiety F41.9 [facility] [address] [id number] [address] [place] [phone] Jun, [facility] [address] [id number] [address] [place] [phone] Jun, [facility] [address] [id number] [address] [place] [phone] Jun, [facility] [address] [id number] [address] [place] [phone] Jun, [facility] [address] [id number] [address] [place] [phone] May, Sebaceous cyst L72.3 [facility] [address] [id number] [address] [place] [phone] May, Low back pain M54.5 [facility] [address] [facility] [id number] [address] [place] [phone] Apr, [facility] [address] [id number] [address] [place] [phone] Apr, Fibromyalgia M79.7 [facility] [address] [facility] [id number] [address] [place] [phone] Apr, Degenerative disc disease, l umbar M51.36 ; Fibromyalgia M79.7 ; Migraines G43.909 ; Hyperlipemia E78.5 ; Restless leg syndrome G25.81 ; Other intractable trigeminal autonomic cephalgia (TAC) G44.091 ; Secondary hypertension I15.9 and Anxiety F41.9 [facility] [address] [place] [id number] [address] [place] [phone] March, Other fpc (current) dr holloway therapy Z79.899 and HTN (hypertension) I10 [facility] [address] [place] [id number] [address] [place] [phone] March, Fibromyalgia M79.7 [facility] [address] [place] [id number] [address] [place] [phone] Feb, [facility] [address] [place] [id number] [address] [place] [phone] Feb, [facility] [address] [place] [id number] [address] [place] [phone] Feb, [facility] [address] [place] [id number] [address] [place] [address] Feb, Hyperlipemia E78.5 [facility] [address] [place] [id number] [address] [place] [phone] Feb, Migraines G43.909 ; Fibromya lgia M79.7 ; Degenerative disc disease, lumbar M51.36 ; Restless leg syndrome G25.81 ; HTN (hypertension) I10 and Tobacco abuse counseling Z71.6 [facility] [address] [place] [id number] [address] [place] [phone] Feb, [facility] [address] [place] [id number] [address] [place] [phone] Jan, [facility] [address] [place] [id number] [address] [place] [id number] Jan, [facility] [address] [facility] [id number] [address] [place] [phone] Dec, [facility] [address] [facility] [id number] [address] [place] [phone] Dec, HTN (hypertension) I10 ; Deg enerative disc disease, lumbar M51.36 ; Restless leg syndrome G25.81 ; Migraines G43.909 ; Fibromyalgia M79.7 and 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 [facility] [address] [id number] [address] [place] [phone] Dec, [facility] [address] [facility] [id number] [address] [place] [phone] Nov, [facility] [address] [place] [id number] [address] [place] [phone] Nov, [facility] [address] [place] [id number] [address] [place] [phone] Oct, [facility] [address] [place] [id number] [address] [place] [id number] Oct, [facility] [address] [place] [id number] [address] [place] [phone] Oct, [facility] [address] [place] [id number] [address] [place] [address] Sep, [facility] [address] [place] [id number] [address] [place] [phone] Sep, Routine gynecological examin ation V72.31 ; Degenerative disc disease, lumbar M51.36 ; Fibromyalgia M79.7 ; Restless leg syndrome G25.81 ; Migraines G43.909 and Well woman exam Z01.419 [facility] [address] [facility] [id number] [address] [place] [phone] Sep, [facility] [address] [facility] [id number] [address] [place] [phone] Aug, [facility] [address] [place] [id number] [address] [place] [address] Aug, Migraines G43.909 ; Degenera tive disc disease, lumbar M51.36 ; Fibromyalgia M79.7 ; Restless leg syndrome G25.81 and HTN (hypertension) I10 [facility] [address] [place] [id number] [place] [address] Aug, [facility] [address] [place] [id number] [place] [address] Aug, [facility] [address] [place] [id number] [place] [address] Jul, [facility] [address] [phone] Jul, [facility] [address] [place] [id number] [place] [address] Jun, Fibromyalgia 729.1 ; Lumbago 724.2 ; Restless leg syndrome 333.94 ; Migraines 346.90 and Elevated blood pressure (not hypertension) 796.2 [facility] [address] [id number] May, Fibromyalgia 729.1 ; Nontoxi c uninodular goiter 241.0 ; Lumbago 724.2 ; Restless leg syndrome 333.94 and Migraines 346.90 [facility] [address] [address] Feb, [facility] [address] [place] [id number] [place] [phone] Feb, [facility] [address] [id number] Jan, [facility] [address] [place] [id number] [place] [phone] Jan, [facility] [address] [id number] Jan, [facility] [address] [id number] [address] [place] [address], [place] [address] Jan, [facility] [address] [id number] [address] [place] [address], [place] [address] Jan, [facility] [address] [id number] [address] [place] [address], [place] [address] Jan, [facility] [address] [id number] [address] [place] [address], [place] [address] Jan, [facility] [address] [id number] [address] [place] [address], [place] [address] Jan, [facility] [address] [id number] [address] [place] [address], [place] [address] Dec, 2014 [facility] [address] [id number] [address] [place] [address], [place] [address] Dec, 2014 [facility] [address] [id number] [address] [place] [address], [place] [address] Dec, 2014 [facility] [address] [id number] [address] [place] [address], [place] [address] Dec, 2014 [facility] [address] [id number] [address] [place] [address], [place] [address] Dec, 2014 [facility] [address] [id number] [address] [place] [address], [place] [address] Dec, 2014 [facility] [address] [id number] [address] [place] [address], [place] [address] Dec, 2014 [facility] [address] [id number] [address] [place] [address], [place] [address] Dec, 2014 [facility] [address] [id number] [address] [place] [address], [place] [address] Dec, 2014 [facility] [address] [id number] [address] [place] [address], [place] [address] Dec, 2014 [facility] [address] [id number] [address] [place] [phone] Dec, [facility] [address] [facility] [id number] [address] [place] [phone] Nov, [facility] [address] [facility] [id number] [address] [place] [phone] Nov, IMMUNIZATIONS No Known Immunizations SOCIAL HISTORY Never Assessed REASON FOR VISIT Diabetes fu -- darren nash PLAN OF CARE Activity Details Follow Up 3 Months, prn Reason:CHM/DM Pending Test VITAMIN D, 25-H VITAL SIGNS Height 63 in 2018-05-09 Weight 164.0 lbs 2018-05-09 Temperature 98.0 degrees Fahrenheit 2018-05-09 Heart Rate 80 bpm 2018-05-09 Respiratory Rate 18 2018-05-09 BMI 29.05 kg/m2 2018-05-09 Blood pressure systolic 128 mmHg 2018-05-09 Blood pressure diastolic 76 mmHg 2018-05-09 MEDICATIONS Medication Instructions Dosage Frequency Start Date End Date Duration S tatus Vitamin D 1000 UNIT Orally Once a day 5 tablets 24h Jan, Jan, 90 days Active BuSpar 10 mg Orally 3 times a day 1 tablet 8h 15 Apr, 2018 90 days Active Hydrocodone-Acetaminophen 10-325 MG Orally every 6 hrs 1 tablet as needed 6h March, 28 days Active Requip 3 MG Orally Once a day at hs 1 tablet 13 Aug, 2016 Not-Taking Crestor 10 MG Orally Once a day 4 tablets 24h Jan, 9 0 days Active Meloxicam 15 mg Orally Once a day 1 tablet 24h Jan, 90 days Active Lisinopril 10 mg Orally Once a day 1 tablet 24h 90 d ays Active Glucocard Expression Test 1 subcutaneously 2 times a day test 2 times per day 12h Nov, Active MetFORMIN HCl ER 500 mg Orally twice a day 1 tabs twice daily 12h Nov, 90 days Active Cyclobenzaprine HCl 10 mg Orally Three times a day 1 tablet as need ed 8h 10 Dec, 2016 Oct, 90 days Active Propranolol HCl 10 mg Orally Twice a day 1 tablet 12h Apr, 90 days Active Gabapentin 400 mg Orally 3 times a day TAKE ONE CAPSULE BY MOUTH THREE TIMES DAILY 8h 90 days Active RESULTS Name Result Date Reference Range A1C (IN HOUSE) 2018-05-09 A1C IN HOUSE 7.8 4.3 - 5.6 % Previous A1c 8.3 Lot [id number] Exp date 12/2019 PROCEDURES Procedure Date Ordered Result Body Site GLYCATED HEMOGLOBIN TEST May 09, 2018 ASSAY OF VITAMIN D May 09, 2018 INSTRUCTIONS MEDICATIONS ADMINISTERED No Known Medications [...]
--- OUTSIDE RECORDS SUMMARY | 2020-02-04 15:00 | XMS REPORT ---
Author Author WILLAM Caitielinda HASSAN Organization [facility] Address [address] [place] [address] Care Team Providers Care Waste Reclaimer Name Role Phone QUARLESSONYA Lamas Unavailable PROBLEMS Type Condition ICD9-CM Code EUR86-QG Code Onset Dates Condition S tatus SNOMED Code Problem Anxiety F41.9 Active 03427519 Problem OAB (overactive bladder) N32.81 Activ e 274207594 Problem Muscle spasms of both lower extremities M62.838 Active 767691937 Problem Chronic tension-type headache, intractable G44.221 Active 088535411 Problem Overweight (BMI 25.0-29.9) E66.3 Act ramana 585310158 Problem Chronic, continuous use of opioids F11.90 Active 428963608 Problem Chronic pain disorder G89.4 Active 302559159 Problem Type 2 diabetes mellitus wit h diabetic polyneuropathy, without long-term current use of insulin E11.42 Active 38833 006 Problem Type 2 diabetes mellitus wit h hyperglycemia, without long-term current use of insulin E11.65 Active 33390629 Problem Vitamin D deficiency E55.9 Active 46601043 Problem Fibromyalgia M79.7 Active 7606534 7 Problem HTN (hypertension) I10 Active 3 1980626 Problem Restless leg syndrome G25.81 Active 13368871 Problem Migraines G43.909 Active 82091210 Problem Degenerative disc disease, lumbar M51.36 Active 04428525 Problem Hyperlipemia E78.5 Active 3192610 4 ALLERGIES No Information ENCOUNTERS Encounter Location Date Diagnosis [facility] [address] [facility] [id number] [address] [place] [id number] Jul, [facility] [address] [facility] [id number] [address] [place] [address] Jun, Fibromyalgia M79.7 [facility] [address] [facility] [id number] [address] [place] [address] Jun, Chronic pain disorder G89.4 [facility] [address] [facility] [id number] [address] [place] [id number] Jun, [facility] [address] [facility] [id number] [address] [place] [address] May, [facility] [address] [facility] [id number] [address] [place] [address] May, Vitamin D deficiency E55.9 [place] [address] [facility] [id number] [address] [place] [address] May, Vitamin D deficiency E55.[id number] [place] [address] May, Chronic pain disorder G89.4 [place] [address] [facility] [id number] [address] [place] [phone] May, Chronic pain disorder G89.4 [place] [address] [place] [id number] [address] [place] [id number] Apr, Chronic pain disorder G89.4 [place] [address] [facility] [id number] [address] [place] [address] Apr, Type 2 diabetes mellitus wit h diabetic polyneuropathy, without long-term current use of insulin E11.42 ; HTN (hypertension) I10 ; Hyperlipemia E78.5 ; Fibromyalgia M79.7 ; Degenerative disc disease, lumbar M51.36 ; Chronic pain disorder G89.4 ; Chronic, continuous use of opioids F11.90 ; Vitamin D deficiency E55.9 ; Anxiety F41.9 ; Chronic tension-type headache, intractable G44.221 and Overweight (BMI 25.0-29.9) E66.3 [place] [address] [facility] [id number] [address] [place] [phone] March, Chronic pain disorder G89.4 [place] [address] [facility] [id number] [address] [place] [address] March, Type 2 diabetes mellitus wit h diabetic polyneuropathy, without long-term current use of insulin E11.42 [facility] [address] [facility] [id number] [address] [place] [id number] Feb, Chronic pain disorder G89.4 [facility] [address] [facility] [id number] [address] [place] [id number] Jan, [facility] [address] [facility] [id number] [address] [place] [id number] Jan, Pharyngitis, unspecified vashti ology J02.9 ; Fibromyalgia M79.7 and Chronic pain disorder G89.4 [facility] [address] [facility] [id number] [address] [place] [id number] Jan, [facility] [address] [facility] [id number] [address] [place] [id number] Jan, [facility] [address] [place] [id number] [address] [place] [phone] Jan, [facility] [address] [facility] [id number] [address] [place] [address] Jan, Type 2 diabetes mellitus wit h [...] and High risk medication use Z79.899 [facility] [address] [facility] [id number] [address] [place] [phone] Dec, Chronic pain disorder G89.4 [facility] [address] [facility] [id number] [address] [place] [address] Nov, Chronic pain disorder G89.4 [facility] [address] [place] [id number] [address] [place] [id number] Nov, [facility] [address] [address] Nov, Type 2 diabetes mellitus wit h hyperglycemia, without long-term current use of insulin E11.65 ; HTN (hypertension) I10 ; Hyperlipemia E78.5 ; Restless leg syndrome G25.81 ; Fibromyalgia M79.7 ; Chronic tension-type headache, intractable G44.221 ; Migraines G43.909 ; Chronic pain disorder G89.4 and Overweight (BMI 25.0-29.9) E66.3 [place] [address] [address] Nov, [address] [address] Oct, Degenerative disc disease, l umbar M51.[address] [address] Sep, Degenerative disc disease, l umbar M51.[address] [address] Sep, [address] [address] Aug, Degenerative disc disease, l umbar M51.[address] [address] Aug, Fall from height of greater than 3 feet W19.XXXA ; Hematoma of left hip, subsequent encounter S70.02XD ; Fibromyalgia M79.7 ; Muscle spasms of both lower extremities M62.838 ; Anxiety F41.9 ; Degenerative disc disease, lumbar M51.36 ; Chronic pain disorder G89.4 and Chronic, continuous use of opioids F11.[address] [address] Jul, [address] [address] Jul, Degenerative disc disease, l umbar M51.[address] [id number] [address] [place] [address] Jun, Degenerative disc disease, l umbar M51.36 [facility] [address] [id number] [address] [place] [address] May, Degenerative disc disease, l umbar M51.36 [facility] [address] [id number] [address] [place] [address] May, [facility] [address] [id number] [address] [place] [address] Apr, Degenerative disc disease, l umbar M51.36 [facility] [address] [id number] [address] [place] [id number] Apr, Degenerative disc disease, l umbar M51.36 [facility] [address] [id number] [address] [place] [id number] March, Degenerative disc disease, l umbar M51.36 and Fall (on) (from) other stairs and steps, initial encounter W10.8XXA [facility] [address] [id number] [address] [place] [phone] March, [facility] [address] [id number] [address] [place] [address] March, [facility] [address] [id number] [address] [place] [id number] March, [facility] [address] [id number] [address] [place] [id number] March, [facility] [address] [id number] [address] [place] [id number] Feb, [facility] [address] [id number] [address] [place] [address] Jan, Fibromyalgia M79.7 [facility] [address] [id number] [address] [place] [id number] Jan, [facility] [address] [facility] [id number] [address] [place] [id number] Dec, Degenerative disc disease, l umbar M51.36 [facility] [address] [facility] [id number] [address] [place] [id number] Dec, [facility] [address] [facility] [id number] [address] [place] [phone] Nov, Degenerative disc disease, l umbar M51.36 ; Fibromyalgia M79.7 ; Restless leg syndrome G25.81 ; HTN (hypertension) I10 ; Hyperlipemia E78.5 ; Chronic tension-type headache, intractable G44.221 and OAB (overactive bladder) N32.81 [facility] [address] [facility] [id number] [address] [place] [id number] Nov, [facility] [address] [facility] [id number] [address] [place] [address] Oct, [facility] [address] [facility] [id number] [address] [place] [address] Oct, [address] [id number] [place], [facility] [id number] Oct, [facility] [address] [facility] [id number] [address] [place] [address] Sep, [facility] [address] [facility] [id number] [address] [place] [address] Aug, [facility] [address] [facility] [id number] [address] [place] [address] Aug, [facility] [address] [facility] [id number] [address] [place] [address] Aug, Degenerative disc disease, l umbar M51.36 [facility] [address] [facility] [id number] [address] [place] [address] Aug, Degenerative disc disease, l umbar M51.36 ; Fibromyalgia M79.7 ; Migraines G43.909 ; Hyperlipemia E78.5 ; Muscle spasms of both lower extremities M62.838 ; Chronic tension-type headache, intractable G44.221 ; HTN (hypertension) I10 and Restless leg syndrome G25.81 [facility] [address] [id number] [address] [place] [id number] 29 Jul, 2016 [facility] [address] [id number] [address] [place] [id number] 15 Jul, 2016 [facility] [address] [id number] [address] [place] [phone] Jul, [facility] [address] [id number] [address] [place] [address] Jun, Chronic tension-type headach e, intractable G44.221 ; Muscle spasms of both lower extremities M62.838 ; Fibromyalgia M79.7 ; Degenerative disc disease, lumbar M51.36 ; Restless leg syndrome G25.81 ; Migraines G43.909 ; Hyperlipemia E78.5 and Anxiety F41.9 [facility] [address] [id number] [address] [place] [id number] Jun, [facility] [address] [id number] [address] [place] [phone] Jun, [facility] [address] [facility] [id number] [address] [place] [address] Jun, [facility] [address] [id number] [address] [place] [id number] Jun, [facility] [address] [facility] [id number] [address] [place] [id number] May, Sebaceous cyst L72.3 [facility] [address] [id number] [address] [place] [id number] May, Low back pain M54.5 [facility] [address] [id number] [address] [place] [id number] Apr, [facility] [address] [facility] [id number] [address] [place] [id number] Apr, Fibromyalgia M79.7 [facility] [address] [place] [id number] [address] [place] [id number] Apr, Degenerative disc disease, l umbar M51.36 ; Fibromyalgia M79.7 ; Migraines G43.909 ; Hyperlipemia E78.5 ; Restless leg syndrome G25.81 ; Other intractable trigeminal autonomic cephalgia (TAC) G44.091 ; Secondary hypertension I15.9 and Anxiety F41.9 [facility] [address] [facility] [id number] [address] [place] [address] March, Other long-term (current) dr amie therapy Z79.899 and HTN (hypertension) I10 [facility] [address] [facility] [id number] [address] [place] [address] March, Fibromyalgia M79.7 [facility] [address] [place] [id number] [address] [place] [id number] Feb, [facility] [address] [place] [id number] [address] [place] [phone] Feb, [facility] [address] [facility] [id number] [address] [place] [id number] Feb, [facility] [address] [place] [id number] [address] [place] [id number] Feb, Hyperlipemia E78.5 [facility] [address] [place] [id number] [address] [place] [id number] Feb, Migraines G43.909 ; Fibromya lgia M79.7 ; Degenerative disc disease, lumbar M51.36 ; Restless leg syndrome G25.81 ; HTN (hypertension) I10 and Tobacco abuse counseling Z71.6 [facility] [address] [facility] [id number] [address] [place] [address] Feb, [facility] [address] [place] [id number] [address] [place] [id number] Jan, [facility] [address] [place] [id number] [address] [place] [id number] Jan, [facility] [address] [facility] [id number] [address] [place] [address] Dec, [facility] [address] [facility] [id number] [address] [place] [address] Dec, Degenerative disc disease, l umbar M51.36 ; Restless leg syndrome G25.81 ; Migraines G43.909 ; HTN (hypertension) I10 ; Fibromyalgia M79.7 and Other intermodal customer service (current) drug therapy Z79.899 [facility] [address] [facility] [id number] [address] [place] [address] Dec, [facility] [address] [facility] [id number] [address] [place] [address] Nov, [facility] [address] [facility] [id number] [address] [place] [address] Nov, [facility] [address] [facility] [id number] [address] [place] [id number] Oct, [facility] [address] [facility] [id number] [address] [place] [address] Oct, [facility] [address] [facility] [id number] [address] [place] [address] Oct, [facility] [address] [facility] [id number] [address] [place] [address] Sep, [facility] [address] [facility] [id number] [address] [place] [address] Sep, Routine gynecological examin ation V72.31 ; Degenerative disc disease, lumbar M51.36 ; Fibromyalgia M79.7 ; Restless leg syndrome G25.81 ; Migraines G43.909 and Well woman exam Z01.419 [facility] [address] [facility] [id number] [address] [place] [address] Sep, [facility] [address] [facility] [id number] [address] [place] [address] Aug, [facility] [address] [place] [id number] [address] [place] [address] Aug, Migraines G43.909 ; Degenera tive disc disease, lumbar M51.36 ; Fibromyalgia M79.7 ; Restless leg syndrome G25.81 and HTN (hypertension) I10 [facility] [id number] [place] [address] Aug, [facility] [address] [place] [id number] [place] [address] Aug, [facility] [address] [address] Jul, [facility] [address] [place] [id number] [place] [address] Jul, [facility] [address] [id number] Jun, Fibromyalgia 729.1 ; Lumbago 724.2 ; Restless leg syndrome 333.94 ; Migraines 346.90 and Elevated blood pressure (not hypertension) 796.2 [facility] [address] [address] May, Fibromyalgia 729.1 ; Nontoxi c uninodular goiter 241.0 ; Lumbago 724.2 ; Restless leg syndrome 333.94 and Migraines 346.90 [facility] [address] [place] [id number] [address] [place] [address] Feb, [facility] [address] [place] [id number] [place] [address] Feb, [facility] [address] [id number] Jan, [facility] [address] [place] [id number] [address] [place] [address] Jan, [facility] [address] [address] Jan, [facility] [address] [id number] [address] [place] [address], [place] [address] Jan, [facility] [address] [id number] [address] [place] [address], [place] [address] Jan, 2014 [facility] [address] [id number] [address] [place] [address], [place] [address] Jan, 2014 [facility] [address] [id number] [address] [place] [address], [place] [address] Jan, 2014 [facility] [address] [id number] [address] [place] [address], [place] [address] Jan, [facility] [address] [id number] [address] [place] [address], [place] [address] Dec, 2014 [facility] [address] [id number] [address] [place] [address], [place] [address] Dec, 2014 [facility] [address] [id number] [address] [place] [address], [place] [address] Dec, 2014 [facility] [address] [id number] [address] [place] [address], [place] [address] Dec, 2014 [facility] [address] [id number] [address] [place] [address], [place] [address] Dec, 2014 [facility] [address] [id number] [address] [place] [address], [place] [address] Dec, 2014 [facility] [address] [id number] [address] [place] [address] Dec, 2014 [facility] [address] [id number] [address] [place] [address], [place] [address] Dec, 2014 [facility] [address] [id number] [address] [place] [address] Dec, 2014 [facility] [address] [id number] [address] [place] [address] Dec, [facility] [address] [facility] [id number] [address] [place] [address] Dec, [facility] [address] [facility] [id number] [address] [place] [id number] Nov, [facility] [address] [facility] [id number] [address] [place] [address] Nov, IMMUNIZATIONS No Known Immunizations SOCIAL HISTORY Never Assessed REASON FOR VISIT Controlled refill/question PLAN OF CARE VITAL SIGNS MEDICATIONS Medication [...]
--- OUTSIDE RECORDS SUMMARY | 2020-02-04 15:01 | XMS REPORT ---
Author Author WILLAM Caitielinda HASSAN Organization [facility] Address [address] [place] [address] Care Team Providers Care Chronometer Tester Name Role Phone QUARLESSONYA Lamas Unavailable PROBLEMS Type Condition ICD9-CM Code IAT10-OV Code Onset Dates Condition S tatus SNOMED Code Problem Anxiety F41.9 Active 86262300 Problem OAB (overactive bladder) N32.81 Activ e 778480284 Problem Muscle spasms of both lower extremities M62.838 Active 636801766 Problem Chronic tension-type headache, intractable G44.221 Active 769094747 Problem Overweight (BMI 25.0-29.9) E66.3 Act ramana 703688735 Problem Chronic, continuous use of opioids F11.90 Active 111695047 Problem Chronic pain disorder G89.4 Active 559149841 Problem Type 2 diabetes mellitus wit h diabetic polyneuropathy, without long-term current use of insulin E11.42 Active 43319 006 Problem Type 2 diabetes mellitus wit h hyperglycemia, without long-term current use of insulin E11.65 Active 01854272 Problem Vitamin D deficiency E55.9 Active 72703254 Problem Fibromyalgia M79.7 Active 9411892 7 Problem HTN (hypertension) I10 Active 3 8913857 Problem Restless leg syndrome G25.81 Active 25515010 Problem Migraines G43.909 Active 81269193 Problem Degenerative disc disease, lumbar M51.36 Active 64368939 Problem Hyperlipemia E78.5 Active 8437462 4 ALLERGIES No Information ENCOUNTERS Encounter Location Date Diagnosis [facility] [address] [facility] [id number] [address] [place] [phone] Jul, [facility] [address] [facility] [id number] [address] [place] [phone] May, [facility] [address] [facility] [id number] [address] [place] [phone] May, Vitamin D deficiency E55.9 [facility] [address] [facility] [id number] [address] [place] [phone] May, Vitamin D deficiency E55.9 [facility] [id number] [place] [phone] May, Chronic pain disorder G89.4 [place] [address] [facility] [id number] [address] [place] [phone] May, Chronic pain disorder G89.4 [place] [address] [facility] [id number] [address] [place] [phone] Apr, Chronic pain disorder G89.4 [place] [address] [facility] [id number] [address] [place] [phone] Apr, Type 2 diabetes mellitus wit h [...] and Overweight (BMI 25.0-29.9) E66.3 [place] [address] [facility] [id number] [address] [place] [phone] March, Chronic pain disorder G89.4 [place] [address] [facility] [id number] [address] [place] [phone] March, Type 2 diabetes mellitus wit h diabetic polyneuropathy, without long-term current use of insulin E11.42 [place] [address] [facility] [id number] [address] [place] [phone] Feb, Chronic pain disorder G89.4 [place] [address] [facility] [id number] [address] [place] [phone] Jan, [place] [address] [facility] [id number] [address] [place] [phone] Jan, Pharyngitis, unspecified vashti ology J02.9 ; Fibromyalgia M79.7 and Chronic pain disorder G89.4 [place] [address] [address] Jan, [place] [address] [address] Jan, [place] [address] [address] Jan, [place] [address] [address] Jan, Type 2 diabetes mellitus wit h [...] High risk medication use Z79.899 [place] [address] [address] Dec, Chronic pain disorder G89.4 [place] [address] [place] [id number] [address] [place] [phone] Nov, Chronic pain disorder G89.4 [place] [address] [place] [id number] [address] [place] [phone] Nov, [place] [address] [place] [id number] [address] [place] [phone] Nov, Type 2 diabetes mellitus wit h hyperglycemia, without long-term current use of insulin E11.65 ; HTN (hypertension) I10 ; Hyperlipemia E78.5 ; Restless leg syndrome G25.81 ; Fibromyalgia M79.7 ; Chronic tension-type headache, intractable G44.221 ; Migraines G43.909 ; Chronic pain disorder G89.4 and Overweight (BMI 25.0-29.9) E66.3 [place] [address] [place] [id number] [address] [place] [phone] Nov, [place] [address] [address] Oct, Degenerative disc disease, l umbar M51.36 [place] [address] [place] [id number] [place] [phone] Sep, Degenerative disc disease, l umbar M51.36 [place] [address] [place] [id number] [place] [address] Sep, [place] [address] [address] Aug, Degenerative disc disease, l umbar M51.36 [place] [address] [address] Aug, Fall from height of greater than 3 feet W19.XXXA ; Hematoma of left hip, subsequent encounter S70.02XD ; Fibromyalgia M79.7 ; Muscle spasms of both lower extremities M62.838 ; Anxiety F41.9 ; Degenerative disc disease, lumbar M51.36 ; Chronic pain disorder G89.4 and Chronic, continuous use of opioids F11.90 [place] [address] [address] Jul, [place] [address] [address] Jul, Degenerative disc disease, l umbar M51.36 [place] [address] [place] [id number] [address] [place] [phone] Jun, Degenerative disc disease, l umbar M51.36 [place] [address] [place] [id number] [address] [place] [phone] May, Degenerative disc disease, l umbar M51.36 [place] [address] [place] [id number] [place] [phone] May, [facility] [address] [id number] [address] [place] [phone] Apr, Degenerative disc disease, l umbar M51.36 [facility] [address] [id number] [address] [place] [address] Apr, Degenerative disc disease, l umbar M51.36 [facility] [address] [id number] [address] [place] [phone] March, Degenerative disc disease, l umbar M51.36 and Fall (on) (from) other stairs and steps, initial encounter W10.8XXA [facility] [address] [id number] [address] [place] [phone] March, [facility] [address] [id number] [address] [place] [phone] March, [facility] [address] [id number] [address] [place] [phone] March, [facility] [address] [id number] [address] [place] [phone] March, [facility] [address] [id number] [address] [place] [phone] Feb, [facility] [address] [id number] [address] [place] [phone] Jan, Fibromyalgia M79.7 [facility] [address] [id number] [address] [place] [phone] Jan, [facility] [address] [id number] [address] [place] [phone] Dec, Degenerative disc disease, l umbar M51.36 [facility] [address] [id number] [address] [place] [phone] Dec, [facility] [address] [id number] [address] [place] [phone] Nov, Degenerative disc disease, l umbar M51.36 ; Fibromyalgia M79.7 ; Restless leg syndrome G25.81 ; HTN (hypertension) I10 ; Hyperlipemia E78.5 ; Chronic tension-type headache, intractable G44.221 and OAB (overactive bladder) N32.81 [facility] [address] [facility] [id number] [address] [place] [phone] Nov, [facility] [address] [facility] [id number] [address] [place] [phone] Oct, [facility] [address] [facility] [id number] [address] [place] [phone] Oct, [facility] [address] [facility] [id number] [facility] [id number] Oct, [facility] [address] [facility] [id number] [address] [place] [phone] Sep, [facility] [address] [facility] [id number] [address] [place] [phone] Aug, [facility] [address] [facility] [id number] [address] [place] [phone] Aug, [facility] [address] [facility] [id number] [address] [place] [address] Aug, Degenerative disc disease, l umbar M51.36 [facility] [address] [place] [id number] [address] [place] [phone] Aug, Degenerative disc disease, l umbar M51.36 ; Fibromyalgia M79.7 ; Migraines G43.909 ; Hyperlipemia E78.5 ; Muscle spasms of both lower extremities M62.838 ; Chronic tension-type headache, intractable G44.221 ; HTN (hypertension) I10 and Restless leg syndrome G25.81 [facility] [address] [facility] [id number] [address] [place] [phone] Jul, [facility] [address] [facility] [id number] [address] [place] [phone] Jul, [facility] [address] [facility] [id number] [address] [place] [phone] Jul, [facility] [address] [facility] [id number] [address] [place] [phone] Jun, Chronic tension-type headach e, intractable G44.221 ; Muscle spasms of both lower extremities M62.838 ; Fibromyalgia M79.7 ; Degenerative disc disease, lumbar M51.36 ; Restless leg syndrome G25.81 ; Migraines G43.909 ; Hyperlipemia E78.5 and Anxiety F41.9 [facility] [address] [facility] [id number] [address] [place] [phone] Jun, [facility] [address] [facility] [id number] [address] [place] [phone] Jun, [facility] [address] [place] [id number] [address] [place] [phone] Jun, [facility] [address] [place] [id number] [address] [place] [phone] Jun, [facility] [address] [place] [id number] [address] [place] [phone] May, Sebaceous cyst L72.3 [facility] [address] [facility] [id number] [address] [place] [phone] May, Low back pain M54.5 [facility] [address] [place] [id number] [address] [place] [phone] Apr, [facility] [address] [place] [id number] [address] [place] [phone] Apr, Fibromyalgia M79.7 [facility] [address] [place] [id number] [address] [place] [phone] Apr, Degenerative disc disease, l umbar M51.36 ; Fibromyalgia M79.7 ; Migraines G43.909 ; Hyperlipemia E78.5 ; Restless leg syndrome G25.81 ; Other intractable trigeminal autonomic cephalgia (TAC) G44.091 ; Secondary hypertension I15.9 and Anxiety F41.9 [facility] [address] [place] [id number] [address] [place] [phone] March, Other specimen transporter (current) dr amie potter Z79.899 and HTN (hypertension) I10 [facility] [address] [place] [id number] [address] [place] [phone] March, Fibromyalgia M79.7 [facility] [address] [address] Feb, [facility] [address] [place] [id number] [place] [address] Feb, [place] [address] [address] Feb, [place] [address] [address] Feb, Hyperlipemia E78.5 [place] [address] [address] Feb, Migraines G43.909 ; Fibromya lgia M79.7 ; Degenerative disc disease, lumbar M51.36 ; Restless leg syndrome G25.81 ; HTN (hypertension) I10 and Tobacco abuse counseling Z71.6 [place] [address] [place] [id number] [address] [place] [phone] Feb, [place] [address] [place] [id number] [address] [place] [phone] Jan, [facility] [address] [place] [id number] [address] [place] [phone] Jan, [facility] [address] [address] Dec, [facility] [address] [place] [id number] [address] [place] [phone] Dec, HTN (hypertension) I10 ; Deg enerative disc disease, lumbar M51.36 ; Restless leg syndrome G25.81 ; Migraines G43.909 ; Fibromyalgia M79.7 and Other specimen transporter (current) drug therapy Z79.899 [facility] [address] [facility] [id number] [address] [place] [phone] Dec, [facility] [address] [id number] [address] [place] [phone] Nov, [facility] [address] [facility] [id number] [address] [place] [phone] Nov, [facility] [address] [id number] [address] [place] [phone] Oct, [facility] [address] [facility] [id number] [address] [place] [phone] Oct, [facility] [address] [place] [id number] [address] [place] [phone] Oct, [facility] [address] [facility] [id number] [address] [place] [phone] Sep, [facility] [address] [facility] [id number] [address] [place] [phone] Sep, Routine gynecological examin ation V72.31 ; Degenerative disc disease, lumbar M51.36 ; Fibromyalgia M79.7 ; Restless leg syndrome G25.81 ; Migraines G43.909 and Well woman exam Z01.419 [facility] [address] [facility] [id number] [address] [place] [phone] Sep, [facility] [address] [facility] [id number] [address] [place] [phone] Aug, [facility] [address] [facility] [id number] [address] [place] [address] Aug, Migraines G43.909 ; Degenera tive disc disease, lumbar M51.36 ; Fibromyalgia M79.7 ; Restless leg syndrome G25.81 and HTN (hypertension) I10 [facility] [address] [facility] [id number] [address] [place] [phone] Aug, [facility] [address] [facility] [id number] [address] [place] [phone] Aug, [facility] [address] [facility] [id number] [address] [place] [phone] Jul, [facility] [address] [facility] [id number] [address] [place] [phone] Jul, [facility] [address] [facility] [id number] [address] [place] [phone] Jun, Fibromyalgia 729.1 ; Lumbago 724.2 ; Restless leg syndrome 333.94 ; Migraines 346.90 and Elevated blood pressure (not hypertension) 796.2 [facility] [address] [facility] [id number] [address] [place] [phone] May, Fibromyalgia 729.1 ; Nontoxi c uninodular goiter 241.0 ; Lumbago 724.2 ; Restless leg syndrome 333.94 and Migraines 346.90 [facility] [address] [facility] [id number] [address] [place] [phone] Feb, [facility] [address] [facility] [id number] [address] [place] [phone] Feb, [facility] [address] [facility] [id number] [address] [place] [phone] Jan, [facility] [address] [facility] [id number] [address] [place] [phone] Jan, [facility] [address] [facility] [id number] [address] [place] [phone] Jan, [facility] [address] [facility] [id number] [address] [place] [phone] Jan, [facility] [address] [facility] [id number] [address] [place] [phone] Jan, [facility] [address] [facility] [id number] [address] [place] [phone] Jan, [facility] [address] [id number] [address] [place] [address], [place] [address] Jan, [facility] [address] [id number] [address] [place] [address], [place] [address] Jan, [facility] [address] [id number] [address] [place] [address], [place] [address] Dec, 2014 [facility] [address] [id number] [address] [place] [address], [place] [address] Dec, 2014 [facility] [address] [id number] [address] [place] [address], [place] [address] Dec, 2014 [facility] [address] [id number] [address] [place] [address], [place] [address] Dec, 2014 [facility] [address] [id number] [address] [place] [address], [place] [address] Dec, 2014 [facility] [address] [id number] [address] [place] [phone] Dec, 2014 [facility] [address] [id number] [address] [place] [phone] Dec, 2014 [facility] [address] [id number] [address] [place] [phone] Dec, 2014 [facility] [address] [id number] [address] [place] [phone] Dec, 2014 [facility] [address] [id number] [address] [place] [phone] Dec, 2014 [facility] [address] [id number] [address] [place] [phone] Dec, 2014 [facility] [address] [id number] [address] [place] [phone] Nov, [facility] [address] [id number] [address] [place] [phone] Nov, IMMUNIZATIONS No Known Immunizations SOCIAL HISTORY Never Assessed REASON FOR VISIT Medication refill request PLAN OF CARE VITAL SIGNS MEDICATIONS Medication Instructions Dosage Frequency Start Date End Date Duration Que anders Hydrocodone-Acetaminophen 10-325 MG Orally every 6 hrs 1 tablet as needed 6h Feb, 28 days Active RESULTS No Results PROCEDURES [...]
--- OUTSIDE RECORDS SUMMARY | 2020-02-04 15:01 | XMS REPORT ---
Author Author Caitie QUARLES Organization [facility] Address [address] [place] [address] Care Team Providers Care Data Center Technician Name Role Phone QUARLESSONYA Lamas Unavailable PROBLEMS Type Condition ICD9-CM Code VJX36-FO Code Onset Dates Condition S tatus SNOMED Code Problem Anxiety F41.9 Active 79409310 Problem OAB (overactive bladder) N32.81 Activ e 914589655 Problem Muscle spasms of both lower extremities M62.838 Active 577585483 Problem Chronic tension-type headache, intractable G44.221 Active 374210138 Problem Overweight (BMI 25.0-29.9) E66.3 Act ramana 503871948 Problem Chronic, continuous use of opioids F11.90 Active 862317698 Problem Chronic pain disorder G89.4 Active 107938723 Problem Type 2 diabetes mellitus wit h diabetic polyneuropathy, without long-term current use of insulin E11.42 Active 01622 006 Problem Type 2 diabetes mellitus wit h hyperglycemia, without long-term current use of insulin E11.65 Active 48566201 Problem Vitamin D deficiency E55.9 Active 56450583 Problem Fibromyalgia M79.7 Active 1257288 7 Problem HTN (hypertension) I10 Active 3 3134897 Problem Restless leg syndrome G25.81 Active 79447821 Problem Migraines G43.909 Active 72679655 Problem Degenerative disc disease, lumbar M51.36 Active 23770861 Problem Hyperlipemia E78.5 Active 4178023 4 ALLERGIES No Information ENCOUNTERS Encounter Location Date Diagnosis [facility] [address] [facility] [id number] [address] [place] [phone] 13 Jul, 2018 [facility] [id number] [place] [phone] May, Chronic pain disorder G89.4 [facility] [address] [facility] [id number] [address] [place] [phone] May, Chronic pain disorder G89.4 [facility] [address] [facility] [id number] [address] [place] [phone] Apr, Chronic pain disorder G89.4 [facility] [address] [place] [id number] [address] [place] [phone] Apr, Type 2 diabetes mellitus wit h diabetic polyneuropathy, without long-term current use of insulin E11.42 ; HTN (hypertension) I10 ; Hyperlipemia E78.5 ; Fibromyalgia M79.7 ; Degenerative disc disease, lumbar M51.36 ; Chronic pain disorder G89.4 ; Chronic, continuous use of opioids F11.90 ; Vitamin D deficiency E55.9 ; Anxiety F41.9 ; Chronic tension-type headache, intractable G44.221 and Overweight (BMI 25.0-29.9) E66.3 [place] [address] [address] March, Chronic pain disorder G89.4 [place] [address] [place] [id number] [address] [place] [phone] March, Type 2 diabetes mellitus wit h diabetic polyneuropathy, without long-term current use of insulin E11.42 [place] [address] [place] [id number] [address] [place] [phone] Feb, Chronic pain disorder G89.4 [place] [id number] [place] [address] Jan, [place] [address] [address] Jan, Pharyngitis, unspecified vashti ology J02.9 ; Fibromyalgia M79.7 and Chronic pain disorder G89.4 [place] [address] [place] [id number] [address] [place] [phone] Jan, [place] [address] [place] [id number] [address] [place] [phone] Jan, [place] [address] [address] Jan, [place] [address] [address] Jan, Type 2 diabetes mellitus wit h diabetic polyneuropathy, without long-term current use of insulin E11.42 ; Type 2 diabetes mellitus with hyperglycemia, without long-term current use of insulin E11.65 ; Degenerative disc disease, lumbar M51.36 ; Fibromyalgia M79.7 ; Restless leg syndrome G25.81 ; HTN (hypertension) I10 ; Hyperlipemia E78.5 ; Anxiety F41.9 ; Migraines G43.909 and High risk medication use Z79.[address] [address] Dec, Chronic pain disorder G89.[address] [address] Nov, Chronic pain disorder G89.[address] [address] Nov, [address] [address] Nov, Type 2 diabetes mellitus wit h hyperglycemia, without long-term current use of insulin E11.65 ; HTN (hypertension) I10 ; Hyperlipemia E78.5 ; Restless leg syndrome G25.81 ; Fibromyalgia M79.7 ; Chronic tension-type headache, intractable G44.221 ; Migraines G43.909 ; Chronic pain disorder G89.4 and Overweight (BMI 25.0-29.9) E66.[address] [address] Nov, [address] [address] Oct, Degenerative disc disease, l umbar M51.[address] [address] Sep, Degenerative disc disease, l umbar M51.36 [facility] [address] [place] [id number] [address] [place] [id number] Sep, [place] [address] [facility] [id number] [address] [place] [phone] Aug, Degenerative disc disease, l umbar M51.36 [place] [address] [place] [id number] [address] [place] [phone] Aug, Fall from height of greater than 3 feet W19.XXXA ; Hematoma of left hip, subsequent encounter S70.02XD ; Fibromyalgia M79.7 ; Muscle spasms of both lower extremities M62.838 ; Anxiety F41.9 ; Degenerative disc disease, lumbar M51.36 ; Chronic pain disorder G89.4 and Chronic, continuous use of opioids F11.90 [place] [address] [place] [id number] [address] [place] [phone] Jul, [place] [address] [place] [id number] [address] [place] [phone] Jul, Degenerative disc disease, l umbar M51.36 [place] [address] [place] [id number] [address] [place] [phone] Jun, Degenerative disc disease, l umbar M51.36 [place] [address] [place] [id number] [address] [place] [phone] May, Degenerative disc disease, l umbar M51.36 [place] [address] [place] [id number] [address] [place] [phone] May, [place] [address] [facility] [id number] [address] [place] [address] Apr, Degenerative disc disease, l umbar M51.36 [place] [address] [place] [id number] [address] [place] [phone] Apr, Degenerative disc disease, l umbar M51.36 [place] [address] [place] [id number] [address] [place] [phone] March, Degenerative disc disease, l umbar M51.36 and Fall (on) (from) other stairs and steps, initial encounter W10.8XXA [facility] [address] [id number] [address] [place] [phone] March, [facility] [address] [id number] [address] [place] [phone] March, [facility] [address] [id number] [address] [place] [phone] March, [facility] [address] [id number] [address] [place] [phone] March, [facility] [address] [facility] [id number] [address] [place] [phone] Feb, [facility] [address] [facility] [id number] [address] [place] [phone] Jan, Fibromyalgia M79.7 [facility] [address] [facility] [id number] [address] [place] [phone] Jan, [facility] [address] [facility] [id number] [address] [place] [id number] Dec, Degenerative disc disease, l umbar M51.36 [facility] [address] [facility] [id number] [address] [place] [phone] Dec, [facility] [address] [facility] [id number] [address] [place] [phone] Nov, Degenerative disc disease, l umbar M51.36 ; Fibromyalgia M79.7 ; Restless leg syndrome G25.81 ; HTN (hypertension) I10 ; Hyperlipemia E78.5 ; Chronic tension-type headache, intractable G44.221 and OAB (overactive bladder) N32.81 [facility] [address] [facility] [id number] [address] [place] [phone] Nov, [facility] [address] [place] [id number] [address] [place] [phone] Oct, [facility] [address] [facility] [id number] [address] [place] [phone] Oct, [facility] [address] [id number] [id number] Oct, [facility] [address] [facility] [id number] [address] [place] [phone] Sep, [facility] [address] [facility] [id number] [address] [place] [phone] Aug, [facility] [address] [id number] [address] [place] [phone] Aug, [facility] [address] [facility] [id number] [address] [place] [address] Aug, Degenerative disc disease, l umbar M51.36 [facility] [address] [facility] [id number] [address] [place] [address] Aug, Degenerative disc disease, l umbar M51.36 ; Fibromyalgia M79.7 ; Migraines G43.909 ; Hyperlipemia E78.5 ; Muscle spasms of both lower extremities M62.838 ; Chronic tension-type headache, intractable G44.221 ; HTN (hypertension) I10 and Restless leg syndrome G25.81 [facility] [address] [id number] [address] [place] [phone] Jul, [facility] [address] [facility] [id number] [address] [place] [phone] Jul, [facility] [address] [id number] [address] [place] [phone] Jul, [facility] [address] [facility] [id number] [address] [place] [phone] Jun, Chronic tension-type headach e, intractable G44.221 ; Muscle spasms of both lower extremities M62.838 ; Fibromyalgia M79.7 ; Degenerative disc disease, lumbar M51.36 ; Restless leg syndrome G25.81 ; Migraines G43.909 ; Hyperlipemia E78.5 and Anxiety F41.9 [facility] [address] [facility] [id number] [address] [place] [id number] Jun, [facility] [address] [facility] [id number] [address] [place] [phone] Jun, [facility] [address] [facility] [id number] [address] [place] [phone] Jun, [facility] [address] [facility] [id number] [address] [place] [phone] Jun, [facility] [address] [facility] [id number] [address] [place] [address] May, Sebaceous cyst L72.3 [facility] [address] [facility] [id number] [address] [place] [phone] May, Low back pain M54.5 [facility] [address] [facility] [id number] [address] [place] [phone] Apr, [facility] [address] [facility] [id number] [address] [place] [phone] Apr, Fibromyalgia M79.7 [facility] [address] [facility] [id number] [address] [place] [phone] Apr, Degenerative disc disease, l umbar M51.36 ; Fibromyalgia M79.7 ; Migraines G43.909 ; Hyperlipemia E78.5 ; Restless leg syndrome G25.81 ; Other intractable trigeminal autonomic cephalgia (TAC) G44.091 ; Secondary hypertension I15.9 and Anxiety F41.9 [facility] [address] [facility] [id number] [address] [place] [address] March, 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.899 and HTN (hypertension) I10 [facility] [address] [facility] [id number] [address] [place] [address] March, Fibromyalgia M79.7 [facility] [address] [facility] [id number] [address] [place] [phone] Feb, [facility] [address] [facility] [id number] [address] [place] [phone] Feb, [facility] [address] [place] [id number] [address] [place] [phone] Feb, [facility] [address] [place] [id number] [address] [place] [phone] Feb, Hyperlipemia E78.5 [facility] [address] [place] [id number] [address] [place] [address] Feb, Migraines G43.909 ; Fibromya lgia M79.7 ; Degenerative disc disease, lumbar M51.36 ; Restless leg syndrome G25.81 ; HTN (hypertension) I10 and Tobacco abuse counseling Z71.6 [facility] [address] [place] [id number] [address] [place] [phone] Feb, [facility] [address] [place] [id number] [address] [place] [phone] Jan, [facility] [address] [place] [id number] [address] [place] [phone] Jan, [facility] [address] [place] [id number] [address] [place] [phone] Dec, [facility] [address] [place] [id number] [address] [place] [id number] Dec, Degenerative disc disease, l umbar M51.36 ; Restless leg syndrome G25.81 ; Migraines G43.909 ; HTN (hypertension) I10 ; Fibromyalgia M79.7 and Other care home (current) drug therapy Z79.899 [facility] [address] [place] [id number] [address] [place] [phone] Dec, [facility] [address] [place] [id number] [address] [place] [phone] Nov, [facility] [address] [place] [id number] [address] [place] [phone] Nov, [facility] [address] [facility] [id number] [address] [place] [phone] Oct, [facility] [address] [facility] [id number] [address] [place] [phone] Oct, [facility] [address] [facility] [id number] [address] [place] [phone] Oct, [facility] [address] [facility] [id number] [address] [place] [phone] Sep, [facility] [address] [facility] [id number] [address] [place] [phone] Sep, Routine gynecological examin ation V72.31 ; Degenerative disc disease, lumbar M51.36 ; Fibromyalgia M79.7 ; Restless leg syndrome G25.81 ; Migraines G43.909 and Well woman exam Z01.419 [facility] [address] [facility] [id number] [address] [place] [phone] Sep, [facility] [address] [facility] [id number] [address] [place] [phone] Aug, [facility] [address] [facility] [id number] [address] [place] [address] Aug, Migraines G43.909 ; Degenera tive disc disease, lumbar M51.36 ; Fibromyalgia M79.7 ; Restless leg syndrome G25.81 and HTN (hypertension) I10 [facility] [address] [facility] [id number] [address] [place] [id number] Aug, [facility] [address] [facility] [id number] [address] [place] [phone] Aug, [facility] [address] [facility] [id number] [address] [place] [phone] Jul, [facility] [address] [facility] [id number] [address] [place] [address] Jul, [facility] [address] [place] [id number] [address] [place] [phone] Jun, Fibromyalgia 729.1 ; Lumbago 724.2 ; Restless leg syndrome 333.94 ; Migraines 346.90 and Elevated blood pressure (not hypertension) 796.2 [facility] [address] [id number] [address] [place] [address] May, Fibromyalgia 729.1 ; Nontoxi c uninodular goiter 241.0 ; Lumbago 724.2 ; Restless leg syndrome 333.94 and Migraines 346.90 [facility] [address] [id number] [address] [place] [phone] Feb, [facility] [address] [id number] [address] [place] [phone] Feb, [facility] [address] [id number] [address] [place] [phone] Jan, [facility] [address] [id number] [address] [place] [phone] Jan, [facility] [address] [id number] [address] [place] [phone] Jan, [facility] [address] [facility] [id number] [address] [place] [phone] Jan, [facility] [address] [id number] [address] [place] [phone] Jan, [facility] [address] [id number] [address] [place] [phone] Jan, [facility] [address] [id number] [address] [place] [phone] Jan, [facility] [address] [id number] [address] [place] [phone] Jan, [facility] [address] [id number] [address] [place] [phone] Dec, [facility] [address] [id number] [address] [place] [phone] Dec, [facility] [address] [id number] [address] [place] [phone] Dec, [facility] [address] [id number] [address] [place] [phone] Dec, [facility] [address] [id number] [address] [place] [phone] Dec, [facility] [address] [id number] [address] [place] [phone] Dec, [facility] [address] [id number] [address] [place] [phone] Dec, [facility] [address] [id number] [address] [place] [phone] Dec, [facility] [address] [id number] [address] [place] [phone] Dec, [facility] [address] [id number] [address] [place] [phone] Dec, [facility] [address] [id number] [address] [place] [phone] Dec, [facility] [address] [id number] [address] [place] [phone] Nov, [facility] [address] [id number] [address] [place] [phone] Nov, IMMUNIZATIONS No Known Immunizations SOCIAL HISTORY Never Assessed REASON FOR VISIT Requests return call PLAN OF CARE VITAL SIGNS MEDICATIONS Unknown [...] History surgery Hospitalization History childbirth Hospitalization History [facility] ER for migraine
--- OUTSIDE RECORDS SUMMARY | 2020-02-04 15:01 | XMS REPORT ---
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 Name Role Phone SONYA QUARLES Unavailable PROBLEMS Type Condition ICD9-CM Code EPF94-BX Code Onset Dates Condition S tatus SNOMED Code Problem Anxiety F41.9 Active 47301987 Problem OAB (overactive bladder) N32.81 Activ e 061356892 Problem Muscle spasms of both lower extremities M62.838 Active 780331407 Problem Chronic tension-type headache, intractable G44.221 Active 369316682 Problem Overweight (BMI 25.0-29.9) E66.3 Act ramana 396519328 Problem Chronic, continuous use of opioids F11.90 Active 080524709 Problem Chronic pain disorder G89.4 Active 901234267 Problem Type 2 diabetes mellitus wit h diabetic polyneuropathy, without long-term current use of insulin E11.42 Active 68436 006 Problem Type 2 diabetes mellitus wit h hyperglycemia, without long-term current use of insulin E11.65 Active 78792634 Problem Vitamin D deficiency E55.9 Active 58262661 Problem Fibromyalgia M79.7 Active 6519458 7 Problem HTN (hypertension) I10 Active 3 3600952 Problem Restless leg syndrome G25.81 Active 74559555 Problem Migraines G43.909 Active 27591802 Problem Degenerative disc disease, lumbar M51.36 Active 88410192 Problem Hyperlipemia E78.5 Active 5463502 4 ALLERGIES Substance Reaction Event Type Date Status Amoxicillin hives Drug Allergy Jan, Active tape rash Non Drug Allergy Jan, Active ENCOUNTERS Encounter Location Date Diagnosis [facility] [address] [facility] [id number] [address] [place] [address] Jul, [facility] [address] [id number] [place] [address] May, Chronic pain disorder G89.4 [place] [id number] [facility] [id number] [address] [place] [address] May, Chronic pain disorder G89.4 [place] [address] [place] [id number] [address] [place] [address] Apr, Chronic pain disorder G89.4 [place] [address] [place] [id number] [address] [place] [address] Apr, Type 2 diabetes mellitus wit h diabetic polyneuropathy, without long-term current use of insulin E11.42 ; HTN (hypertension) I10 ; Hyperlipemia E78.5 ; Fibromyalgia M79.7 ; Degenerative disc disease, lumbar M51.36 ; Chronic pain disorder G89.4 ; Chronic, continuous use of opioids F11.90 ; Vitamin D deficiency E55.9 ; Anxiety F41.9 ; Chronic tension-type headache, intractable G44.221 and Overweight (BMI 25.0-29.9) E66.3 [place] [id number] [place] [address] March, Chronic pain disorder G89.4 [place] [address] [place] [id number] [address] [place] [address] March, Type 2 diabetes mellitus wit h diabetic polyneuropathy, without long-term current use of insulin E11.42 [place] [address] [place] [id number] [address] [place] [address] Feb, Chronic pain disorder G89.4 [place] [address] [place] [id number] [address] [place] [address] Jan, [place] [address] [place] [id number] [address] [place] [address] Jan, Pharyngitis, unspecified vashti ology J02.9 ; Fibromyalgia M79.7 and Chronic pain disorder G89.4 [place] [address] [place] [id number] [address] [place] [address] Jan, [place] [address] [place] [id number] [address] [place] [address] Jan, [place] [address] [address] Jan, [place] [address] [address] Jan, Type 2 diabetes mellitus wit h diabetic polyneuropathy, without long-term current use of insulin E11.42 ; Type 2 diabetes mellitus with hyperglycemia, without long-term current use of insulin E11.65 ; Degenerative disc disease, lumbar M51.36 ; Fibromyalgia M79.7 ; Restless leg syndrome G25.81 ; HTN (hypertension) I10 ; Hyperlipemia E78.5 ; Anxiety F41.9 ; Migraines G43.909 and High risk medication use Z79.899 [place] [address] [address] Dec, Chronic pain disorder G89.4 [place] [address] [address] Nov, Chronic pain disorder G89.4 [place] [address] [address] Nov, [place] [address] [address] Nov, Type 2 diabetes mellitus wit h hyperglycemia, without long-term current use of insulin E11.65 ; HTN (hypertension) I10 ; Hyperlipemia E78.5 ; Restless leg syndrome G25.81 ; Fibromyalgia M79.7 ; Chronic tension-type headache, intractable G44.221 ; Migraines G43.909 ; Chronic pain disorder G89.4 and Overweight (BMI 25.0-29.9) E66.3 [place] [address] [address] Nov, [place] [address] [address] Oct, Degenerative disc disease, l umbar M51.36 [place] [address] [place] [id number] [address] [place] [address] Sep, Degenerative disc disease, l umbar M51.36 [place] [address] [address] Sep, [place] [address] [place] [id number] [place] [address] Aug, Degenerative disc disease, l umbar M51.36 [place] [address] [address] Aug, Fall from height of greater than 3 feet W19.XXXA ; Hematoma of left hip, subsequent encounter S70.02XD ; Fibromyalgia M79.7 ; Muscle spasms of both lower extremities M62.838 ; Anxiety F41.9 ; Degenerative disc disease, lumbar M51.36 ; Chronic pain disorder G89.4 and Chronic, continuous use of opioids F11.90 [place] [address] [place] [address] Jul, [place] [address] [address] Jul, Degenerative disc disease, l umbar M51.36 [place] [address] [place] [id number] [address] [place] [address] Jun, Degenerative disc disease, l umbar M51.36 [place] [address] [place] [id number] [address] [place] [address] May, Degenerative disc disease, l umbar M51.36 [place] [address] [place] [id number] [address] [place] [address] May, [place] [address] [place] [id number] [address] [place] [address] Apr, Degenerative disc disease, l umbar M51.36 [place] [address] [place] [id number] [address] [place] [address] Apr, Degenerative disc disease, l umbar M51.36 [facility] [address] [id number] [address] [place] [address] March, Degenerative disc disease, l umbar M51.36 and Fall (on) (from) other stairs and steps, initial encounter W10.8XXA [facility] [address] [id number] [address] [place] [address] March, [facility] [address] [id number] [address] [place] [address] March, [facility] [address] [id number] [address] [place] [address] March, [facility] [address] [facility] [id number] [address] [place] [address] March, [facility] [address] [place] [id number] [address] [place] [address] Feb, [facility] [address] [facility] [id number] [address] [place] [address] Jan, Fibromyalgia M79.7 [facility] [address] [facility] [id number] [address] [place] [address] Jan, [facility] [address] [facility] [id number] [address] [place] [address] Dec, Degenerative disc disease, l umbar M51.36 [facility] [address] [facility] [id number] [address] [place] [address] Dec, [facility] [address] [facility] [id number] [address] [place] [address] Nov, Degenerative disc disease, l umbar M51.36 ; Fibromyalgia M79.7 ; Restless leg syndrome G25.81 ; HTN (hypertension) I10 ; Hyperlipemia E78.5 ; Chronic tension-type headache, intractable G44.221 and OAB (overactive bladder) N32.81 [facility] [address] [facility] [id number] [address] [place] [address] Nov, [facility] [address] [id number] [address] [place] [address] Oct, [facility] [address] [facility] [id number] [address] [place] [address] Oct, [facility] [address] [id number] [place] [id number] Oct, [facility] [address] [facility] [id number] [address] [place] [address] Sep, [facility] [address] [id number] [address] [place] [address] Aug, [facility] [address] [facility] [id number] [address] [place] [address] Aug, [facility] [address] [facility] [id number] [address] [place] [address] Aug, Degenerative disc disease, l umbar M51.36 [facility] [address] [facility] [id number] [address] [place] [address] Aug, Degenerative disc disease, l umbar M51.36 ; Fibromyalgia M79.7 ; Migraines G43.909 ; Hyperlipemia E78.5 ; Muscle spasms of both lower extremities M62.838 ; Chronic tension-type headache, intractable G44.221 ; HTN (hypertension) I10 and Restless leg syndrome G25.81 [facility] [address] [facility] [id number] [address] [place] [address] Jul, [facility] [address] [facility] [id number] [address] [place] [address] Jul, [facility] [address] [facility] [id number] [address] [place] [address] Jul, [facility] [address] [facility] [id number] [address] [place] [address] Jun, Chronic tension-type headach e, intractable G44.221 ; Muscle spasms of both lower extremities M62.838 ; Fibromyalgia M79.7 ; Degenerative disc disease, lumbar M51.36 ; Restless leg syndrome G25.81 ; Migraines G43.909 ; Hyperlipemia E78.5 and Anxiety F41.9 [facility] [address] [facility] [id number] [address] [place] [address] Jun, [facility] [address] [facility] [id number] [address] [place] [phone] Jun, [facility] [address] [facility] [id number] [address] [place] [address] Jun, [facility] [address] [facility] [id number] [address] [place] [address] Jun, [facility] [address] [facility] [id number] [address] [place] [address] May, Sebaceous cyst L72.3 [facility] [address] [place] [id number] [address] [place] [address] May, Low back pain M54.5 [facility] [address] [facility] [id number] [address] [place] [address] Apr, [facility] [address] [place] [id number] [address] [place] [address] Apr, Fibromyalgia M79.7 [facility] [address] [place] [id number] [address] [place] [address] Apr, Degenerative disc disease, l umbar M51.36 ; Fibromyalgia M79.7 ; Migraines G43.909 ; Hyperlipemia E78.5 ; Restless leg syndrome G25.81 ; Other intractable trigeminal autonomic cephalgia (TAC) G44.091 ; Secondary hypertension I15.9 and Anxiety F41.9 [facility] [address] [facility] [id number] [address] [place] [address] March, Other assisted (current) dr amie potter Z79.899 and HTN (hypertension) I10 [facility] [address] [place] [id number] [address] [place] [address] March, Fibromyalgia M79.7 [facility] [address] [facility] [id number] [address] [place] [address] Feb, [facility] [address] [facility] [id number] [address] [place] [address] Feb, [facility] [address] [facility] [id number] [address] [place] [address] Feb, [facility] [address] [place] [id number] [address] [place] [address] Feb, Hyperlipemia E78.5 [facility] [address] [facility] [id number] [address] [place] [address] Feb, Migraines G43.909 ; Fibromya lgia M79.7 ; Degenerative disc disease, lumbar M51.36 ; Restless leg syndrome G25.81 ; HTN (hypertension) I10 and Tobacco abuse counseling Z71.6 [facility] [address] [place] [id number] [address] [place] [address] Feb, [facility] [address] [place] [id number] [address] [place] [address] Jan, [facility] [address] [place] [id number] [address] [place] [address] Jan, [facility] [address] [place] [id number] [address] [place] [address] Dec, [facility] [address] [place] [id number] [address] [place] [address] Dec, HTN (hypertension) I10 ; Deg enerative disc disease, lumbar M51.36 ; Restless leg syndrome G25.81 ; Migraines G43.909 ; Fibromyalgia M79.7 and 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 [facility] [address] [facility] [id number] [address] [place] [address] Dec, [facility] [address] [place] [id number] [address] [place] [address] Nov, [facility] [address] [id number] [address] [place] [address] Nov, [facility] [address] [id number] [address] [place] [address] Oct, [facility] [address] [facility] [id number] [address] [place] [address] Oct, [facility] [address] [id number] [address] [place] [address] Oct, [facility] [address] [facility] [id number] [address] [place] [address] Sep, [facility] [address] [facility] [id number] [address] [place] [address] Sep, Routine gynecological examin ation V72.31 ; Degenerative disc disease, lumbar M51.36 ; Fibromyalgia M79.7 ; Restless leg syndrome G25.81 ; Migraines G43.909 and Well woman exam Z01.419 [facility] [address] [id number] [address] [place] [address] Sep, [facility] [address] [id number] [address] [place] [address] Aug, [facility] [address] [facility] [id number] [address] [place] [address] Aug, Migraines G43.909 ; Degenera tive disc disease, lumbar M51.36 ; Fibromyalgia M79.7 ; Restless leg syndrome G25.81 and HTN (hypertension) I10 [facility] [address] [id number] [address] [place] [address] Aug, [facility] [address] [facility] [id number] [address] [place] [address] Aug, [facility] [address] [facility] [id number] [address] [place] [address] Jul, [facility] [address] [id number] [address] [place] [address] Jul, [facility] [address] [id number] [address] [place] [address] Jun, Fibromyalgia 729.1 ; Lumbago 724.2 ; Restless leg syndrome 333.94 ; Migraines 346.90 and Elevated blood pressure (not hypertension) 796.2 [facility] [address] [id number] [address] [place] [address] May, Fibromyalgia 729.1 ; Nontoxi c uninodular goiter 241.0 ; Lumbago 724.2 ; Restless leg syndrome 333.94 and Migraines 346.90 [facility] [address] [id number] [address] [place] [address] Feb, [facility] [address] [facility] [id number] [address] [place] [address] Feb, [facility] [address] [id number] [address] [place] [address] Jan, [facility] [address] [id number] [address] [place] [phone] Jan, [facility] [address] [id number] [address] [place] [address] Jan, [facility] [address] [facility] [id number] [address] [place] [address] Jan, [facility] [address] [id number] [address] [place] [address] Jan, [facility] [address] [id number] [address] [place] [address] Jan, [facility] [address] [id number] [address] [place] [phone] Jan, [facility] [address] [id number] [address] [place] [address] Jan, [facility] [address] [id number] [address] [place] [address] Dec, [facility] [address] [id number] [address] [place] [address] Dec, [facility] [address] [id number] [address] [place] [address] Dec, [facility] [address] [id number] [address] [place] [address] Dec, 2014 [facility] [address] [id number] [address] [place] [phone] Dec, [facility] [address] [id number] [address] [place] [phone] Dec, [facility] [address] [id number] [address] [place] [address] Dec, [facility] [address] [facility] [id number] [address] [place] [address] Dec, [facility] [address] [id number] [address] [place] [address] Dec, [facility] [address] [id number] [address] [place] [phone] Dec, [facility] [address] [id number] [address] [place] [address] Dec, [facility] [address] [facility] [id number] [address] [place] [phone] Nov, [facility] [address] [id number] [address] [place] [address] Nov, IMMUNIZATIONS No Known Immunizations SOCIAL HISTORY Never Assessed REASON FOR VISIT throat pain x2 mo--tjanssenMA, --sore on the inside of throat been there for the last 6 months. Pop or tea it makes it burn. , --wants to know MRI resutls and needs refill on hydrocodone. PLAN OF CARE Activity Details Follow Up prn, 3 Months Reason:chm VITAL SIGNS Height 63 in 2018-02-20 Weight 167.5 lbs 2018-02-20 Temperature 98.6 degrees Fahrenheit 2018-02-20 Heart Rate 82 bpm 2018-02-20 Respiratory Rate 20 2018-02-20 BMI 29.67 kg/m2 2018-02-20 Blood pressure systolic 122 mmHg 2018-02-20 Blood pressure diastolic 74 mmHg 2018-02-20 MEDICATIONS Medication Instructions Dosage Frequency Start Date End Date Duration S tatus Topamax 100 mg Orally Twice a day 1 tablet 12h Aug, Active Meloxicam 15 MG Orally Once a day 1 tablet 24h Active Cyclobenzaprine HCl 10 mg Orally Three times a day 1 tablet as need ed 8h 10 Dec, 2016 Active Gabapentin 400 MG TAKE ONE CAPSULE BY MOUTH THREE TIMES DAILY Active MetFORMIN HCl ER 500 mg Orally twice a day 2 tabs twice daily 12h Nov, 90 days Active Vitamin D 1000 UNIT Orally Once a day 5 tablets 24h Jan, Jan, 90 days Active Lisinopril 10 mg Orally Once a day 1 tablet 24h Active Glucocard Expression Test 1 subcutaneously 2 times a day test 2 times per day 12h Nov, Active Hydrocodone-Acetaminophen 10-325 MG Orally every 6 hrs 1 tablet as needed 6h Jan, Feb, 28 days Active Crestor 40 MG Orally Once a day 1 tablet 24h Jan, 30 day(s) Active Crestor 10 mg Orally Once a day 1 tablet 24h Feb, Active Requip 3 MG Orally Once a day at hs 1 tablet Aug, Active RESULTS No Results PROCEDURES No Known [...] History surgery Hospitalization History childbirth [facility]
--- OUTSIDE RECORDS SUMMARY | 2020-02-04 15:01 | XMS REPORT ---
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 Name Role Phone QUARLESSONYA Lamas Unavailable PROBLEMS Type Condition ICD9-CM Code DLI52-WD Code Onset Dates Condition S tatus SNOMED Code Problem Anxiety F41.9 Active 51525969 Problem OAB (overactive bladder) N32.81 Activ e 308077896 Problem Muscle spasms of both lower extremities M62.838 Active 621815532 Problem Chronic tension-type headache, intractable G44.221 Active 707424569 Problem Overweight (BMI 25.0-29.9) E66.3 Act ramana 248094095 Problem Chronic, continuous use of opioids F11.90 Active 864449321 Problem Chronic pain disorder G89.4 Active 692355935 Problem Type 2 diabetes mellitus wit h diabetic polyneuropathy, without long-term current use of insulin E11.42 Active 71026 006 Problem Type 2 diabetes mellitus wit h hyperglycemia, without long-term current use of insulin E11.65 Active 59987826 Problem Vitamin D deficiency E55.9 Active 64053250 Problem Fibromyalgia M79.7 Active 9635690 7 Problem HTN (hypertension) I10 Active 3 4617398 Problem Restless leg syndrome G25.81 Active 49105104 Problem Migraines G43.909 Active 55398303 Problem Degenerative disc disease, lumbar M51.36 Active 46817693 Problem Hyperlipemia E78.5 Active 4976799 4 ALLERGIES No Information ENCOUNTERS Encounter Location Date Diagnosis [facility] [address] [facility] [id number] [address] [place] [address] Jul, [facility] [id number] [place] [address] May, Chronic pain disorder G89.4 [facility] [address] [facility] [id number] [address] [place] [address] May, Chronic pain disorder G89.4 [facility] [address] [facility] [id number] [address] [place] [address] Apr, Chronic pain disorder G89.4 [facility] [address] [place] [id number] [address] [place] [address] Apr, Type 2 diabetes mellitus wit h [...] and Overweight (BMI 25.0-29.9) E66.3 [place] [address] [address] March, Chronic pain disorder G89.4 [place] [address] [place] [id number] [address] [place] [address] March, Type 2 diabetes mellitus wit h diabetic polyneuropathy, without long-term current use of insulin E11.42 [place] [address] [place] [id number] [address] [place] [address] Feb, Chronic pain disorder G89.4 [place] [id number] [place] [address] Jan, [place] [address] [address] Jan, Pharyngitis, unspecified vashti ology J02.9 ; Fibromyalgia M79.7 and Chronic pain disorder G89.4 [place] [address] [place] [id number] [address] [place] [address] Jan, [place] [address] [place] [id number] [address] [place] [address] Jan, [place] [address] [address] Jan, [place] [address] [address] Jan, Type 2 diabetes mellitus wit h diabetic polyneuropathy, without long-term current use of insulin E11.42 ; Type 2 diabetes mellitus with hyperglycemia, without long-term current use of insulin E11.65 ; Degenerative disc disease, lumbar M51.36 ; Fibromyalgia M79.7 ; Restless leg syndrome G25.81 ; HTN (hypertension) I10 ; Hyperlipemia E78.5 ; Anxiety F41.9 ; Migraines G43.909 and High risk medication use Z79.[address] [address] Dec, Chronic pain disorder G89.[address] [address] Nov, Chronic pain disorder G89.[address] [address] Nov, [address] [address] Nov, Type 2 diabetes mellitus wit h hyperglycemia, without long-term current use of insulin E11.65 ; HTN (hypertension) I10 ; Hyperlipemia E78.5 ; Restless leg syndrome G25.81 ; Fibromyalgia M79.7 ; Chronic tension-type headache, intractable G44.221 ; Migraines G43.909 ; Chronic pain disorder G89.4 and Overweight (BMI 25.0-29.9) E66.[address] [address] Nov, [address] [address] Oct, Degenerative disc disease, l umbar M51.[address] [address] Sep, Degenerative disc disease, l umbar M51.36 [facility] [address] [place] [id number] [address] [place] [address] Sep, [place] [address] [facility] [id number] [address] [place] [address] Aug, Degenerative disc disease, l umbar M51.36 [place] [address] [place] [id number] [address] [place] [address] Aug, Fall from height of greater than 3 feet W19.XXXA ; Hematoma of left hip, subsequent encounter S70.02XD ; Fibromyalgia M79.7 ; Muscle spasms of both lower extremities M62.838 ; Anxiety F41.9 ; Degenerative disc disease, lumbar M51.36 ; Chronic pain disorder G89.4 and Chronic, continuous use of opioids F11.90 [place] [address] [place] [id number] [address] [place] [address] Jul, [place] [address] [place] [id number] [address] [place] [address] Jul, Degenerative disc disease, l umbar M51.36 [place] [address] [place] [id number] [address] [place] [address] Jun, Degenerative disc disease, l umbar M51.36 [place] [address] [place] [id number] [address] [place] [address] May, Degenerative disc disease, l umbar M51.36 [place] [address] [place] [id number] [address] [place] [address] May, [place] [address] [facility] [id number] [address] [place] [address] Apr, Degenerative disc disease, l umbar M51.36 [place] [address] [place] [id number] [address] [place] [address] Apr, Degenerative disc disease, l umbar M51.36 [place] [address] [place] [id number] [address] [place] [address] March, Degenerative disc disease, l umbar M51.36 and Fall (on) (from) other stairs and steps, initial encounter W10.8XXA [facility] [address] [id number] [address] [place] [address] March, [facility] [address] [id number] [address] [place] [address] March, [facility] [address] [id number] [address] [place] [address] March, [facility] [address] [id number] [address] [place] [address] March, [facility] [address] [facility] [id number] [address] [place] [address] Feb, [facility] [address] [facility] [id number] [address] [place] [address] Jan, Fibromyalgia M79.7 [facility] [address] [facility] [id number] [address] [place] [address] Jan, [facility] [address] [facility] [id number] [address] [place] [address] Dec, Degenerative disc disease, l umbar M51.36 [facility] [address] [facility] [id number] [address] [place] [address] Dec, [facility] [address] [facility] [id number] [address] [place] [address] Nov, Degenerative disc disease, l umbar M51.36 ; Fibromyalgia M79.7 ; Restless leg syndrome G25.81 ; HTN (hypertension) I10 ; Hyperlipemia E78.5 ; Chronic tension-type headache, intractable G44.221 and OAB (overactive bladder) N32.81 [facility] [address] [facility] [id number] [address] [place] [address] Nov, [facility] [address] [place] [id number] [address] [place] [address] Oct, [facility] [address] [facility] [id number] [address] [place] [address] Oct, [facility] [address] [id number] [id number] Oct, [facility] [address] [facility] [id number] [address] [place] [address] Sep, [facility] [address] [facility] [id number] [address] [place] [address] Aug, [facility] [address] [id number] [address] [place] [address] Aug, [facility] [address] [facility] [id number] [address] [place] [address] Aug, Degenerative disc disease, l umbar M51.36 [facility] [address] [facility] [id number] [address] [place] [address] Aug, Degenerative disc disease, l umbar M51.36 ; Fibromyalgia M79.7 ; Migraines G43.909 ; Hyperlipemia E78.5 ; Muscle spasms of both lower extremities M62.838 ; Chronic tension-type headache, intractable G44.221 ; HTN (hypertension) I10 and Restless leg syndrome G25.81 [facility] [address] [id number] [address] [place] [address] Jul, [facility] [address] [facility] [id number] [address] [place] [address] Jul, [facility] [address] [id number] [address] [place] [address] Jul, [facility] [address] [facility] [id number] [address] [place] [address] Jun, Chronic tension-type headach e, intractable G44.221 ; Muscle spasms of both lower extremities M62.838 ; Fibromyalgia M79.7 ; Degenerative disc disease, lumbar M51.36 ; Restless leg syndrome G25.81 ; Migraines G43.909 ; Hyperlipemia E78.5 and Anxiety F41.9 [facility] [address] [facility] [id number] [address] [place] [address] Jun, [facility] [address] [facility] [id number] [address] [place] [address] Jun, [facility] [address] [facility] [id number] [address] [place] [address] Jun, [facility] [address] [facility] [id number] [address] [place] [address] Jun, [facility] [address] [facility] [id number] [address] [place] [address] May, Sebaceous cyst L72.3 [facility] [address] [facility] [id number] [address] [place] [address] May, Low back pain M54.5 [facility] [address] [facility] [id number] [address] [place] [address] Apr, [facility] [address] [facility] [id number] [address] [place] [address] Apr, Fibromyalgia M79.7 [facility] [address] [facility] [id number] [address] [place] [address] Apr, Degenerative disc disease, l umbar M51.36 ; Fibromyalgia M79.7 ; Migraines G43.909 ; Hyperlipemia E78.5 ; Restless leg syndrome G25.81 ; Other intractable trigeminal autonomic cephalgia (TAC) G44.091 ; Secondary hypertension I15.9 and Anxiety F41.9 [facility] [address] 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 [id number] [address] [place] [address] March, Fibromyalgia M79.7 [facility] [address] [facility] [id number] [address] [place] [address] Feb, [facility] [address] [facility] [id number] [address] [place] [phone] Feb, [facility] [address] [place] [id number] [address] [place] [address] Feb, [facility] [address] [place] [id number] [address] [place] [address] Feb, Hyperlipemia E78.5 [facility] [address] [place] [id number] [address] [place] [address] Feb, Migraines G43.909 ; Fibromya lgia M79.7 ; Degenerative disc disease, lumbar M51.36 ; Restless leg syndrome G25.81 ; HTN (hypertension) I10 and Tobacco abuse counseling Z71.6 [facility] [address] [place] [id number] [place] [address] Feb, [facility] [address] [place] [id number] [address] [place] [address] Jan, [facility] [address] [place] [id number] [address] [place] [address] Jan, [facility] [address] [place] [id number] [place] [address] Dec, [facility] [address] [place] [id number] [address] [place] [address] Dec, HTN (hypertension) I10 ; Deg enerative disc disease, lumbar M51.36 ; Restless leg syndrome G25.81 ; Migraines G43.909 ; Fibromyalgia M79.7 and Other custodial (current) drug therapy Z79.899 [facility] [address] [place] [id number] [address] [place] [address] Dec, [facility] [address] [place] [id number] [address] [place] [address] Nov, [facility] [address] [place] [id number] [address] [place] [address] Nov, [facility] [address] [facility] [id number] [address] [place] [address] Oct, [facility] [address] [facility] [id number] [address] [place] [address] Oct, [facility] [address] [facility] [id number] [address] [place] [address] Oct, [facility] [address] [facility] [id number] [address] [place] [address] Sep, [facility] [address] [facility] [id number] [address] [place] [address] Sep, Routine gynecological examin ation V72.31 ; Degenerative disc disease, lumbar M51.36 ; Fibromyalgia M79.7 ; Restless leg syndrome G25.81 ; Migraines G43.909 and Well woman exam Z01.419 [facility] [address] [facility] [id number] [address] [place] [address] Sep, [facility] [address] [facility] [id number] [address] [place] [address] Aug, [facility] [address] [facility] [id number] [address] [place] [address] Aug, Migraines G43.909 ; Degenera tive disc disease, lumbar M51.36 ; Fibromyalgia M79.7 ; Restless leg syndrome G25.81 and HTN (hypertension) I10 [facility] [address] [facility] [id number] [address] [place] [address] Aug, [facility] [address] [facility] [id number] [address] [place] [address] Aug, [facility] [address] [facility] [id number] [address] [place] [address] Jul, [facility] [address] [facility] [id number] [address] [place] [address] Jul, [facility] [address] [place] [id number] [address] [place] [address] Jun, Fibromyalgia 729.1 ; Lumbago 724.2 ; Restless leg syndrome 333.94 ; Migraines 346.90 and Elevated blood pressure (not hypertension) 796.2 [facility] [address] [id number] [address] [place] [address] May, Fibromyalgia 729.1 ; Nontoxi c uninodular goiter 241.0 ; Lumbago 724.2 ; Restless leg syndrome 333.94 and Migraines 346.90 [facility] [address] [id number] [address] [place] [address] Feb, [facility] [address] [id number] [address] [place] [address] Feb, [facility] [address] [id number] [address] [place] [address] Jan, [facility] [address] [id number] [address] [place] [phone] Jan, [facility] [address] [id number] [address] [place] [address] Jan, [facility] [address] [facility] [id number] [address] [place] [address] Jan, [facility] [address] [id number] [address] [place] [address] Jan, [facility] [address] [id number] [address] [place] [address] Jan, [facility] [address] [id number] [address] [place] [address] Jan, [facility] [address] [id number] [address] [place] [phone] Jan, [facility] [address] [id number] [address] [place] [phone] Dec, [facility] [address] [id number] [address] [place] [address] Dec, 2014 [facility] [address] [id number] [address] [place] [address] Dec, 2014 [facility] [address] [id number] [address] [place] [phone] Dec, 2014 [facility] [address] [id number] [address] [place] [phone] Dec, 2014 [facility] [address] [id number] [address] [place] [phone] Dec, 2014 [facility] [address] [id number] [address] [place] [phone] Dec, 2014 [facility] [address] [id number] [address] [place] [phone] Dec, 2014 [facility] [address] [id number] [address] [place] [phone] Dec, [facility] [address] [id number] [address] [place] [phone] Dec, [facility] [address] [id number] [address] [place] [phone] Dec, [facility] [address] [facility] [id number] [address] [place] [phone] Nov, [facility] [address] [facility] [id number] [address] [place] [address] Nov, IMMUNIZATIONS No Known Immunizations SOCIAL HISTORY Never Assessed REASON FOR VISIT Medication refill request PLAN OF CARE VITAL SIGNS MEDICATIONS Medication Instructions Dosage Frequency Start Date End Date Duration S tatus Crestor 40 MG Orally Once a day 1 tablet 24h Jan, 30 day(s) Active Vitamin D 1000 UNIT Orally Once a day 5 tablets 24h Jan, Jan, 90 days Active RESULTS No Results PROCEDURES No [...]
--- OUTSIDE RECORDS SUMMARY | 2020-02-04 15:01 | XMS REPORT ---
Author Author Caitie QUARLES Organization [facility] Address [address] [place] [address] Care Team Providers Care Barker Operator Name Role Phone QUARLESSONYA Lamas Unavailable PROBLEMS Type Condition ICD9-CM Code EJR39-AR Code Onset Dates Condition S tatus SNOMED Code Problem Anxiety F41.9 Active 70064658 Problem OAB (overactive bladder) N32.81 Activ e 918304635 Problem Muscle spasms of both lower extremities M62.838 Active 678682152 Problem Chronic tension-type headache, intractable G44.221 Active 470505568 Problem Overweight (BMI 25.0-29.9) E66.3 Act ramana 519156410 Problem Chronic, continuous use of opioids F11.90 Active 002460289 Problem Chronic pain disorder G89.4 Active 646580878 Problem Type 2 diabetes mellitus wit h diabetic polyneuropathy, without long-term current use of insulin E11.42 Active 62341 006 Problem Type 2 diabetes mellitus wit h hyperglycemia, without long-term current use of insulin E11.65 Active 19866881 Problem Vitamin D deficiency E55.9 Active 58227030 Problem Fibromyalgia M79.7 Active 5194148 7 Problem HTN (hypertension) I10 Active 3 0852241 Problem Restless leg syndrome G25.81 Active 23365275 Problem Migraines G43.909 Active 42247080 Problem Degenerative disc disease, lumbar M51.36 Active 25869113 Problem Hyperlipemia E78.5 Active 6537804 4 ALLERGIES No Information ENCOUNTERS Encounter Location Date Diagnosis [facility] [address] [facility] [id number] [address] [place] [address] Jul, [facility] [id number] [place] [phone] May, Chronic pain disorder G89.4 [facility] [address] [facility] [id number] [address] [place] [phone] May, Chronic pain disorder G89.4 [facility] [address] [facility] [id number] [address] [place] [address] Apr, Chronic pain disorder G89.4 [facility] [address] [place] [id number] [address] [place] [address] Apr, Type 2 diabetes mellitus wit h diabetic polyneuropathy, without long-term current use of insulin E11.42 ; HTN (hypertension) I10 ; Hyperlipemia E78.5 ; Fibromyalgia M79.7 ; Degenerative disc disease, lumbar M51.36 ; Chronic pain disorder G89.4 ; Chronic, continuous use of opioids F11.90 ; Vitamin D deficiency E55.9 ; Anxiety F41.9 ; Chronic tension-type headache, intractable G44.221 and Overweight (BMI 25.0-29.9) E66.3 [place] [address] [address] March, Chronic pain disorder G89.4 [place] [address] [place] [id number] [address] [place] [address] March, Type 2 diabetes mellitus wit h diabetic polyneuropathy, without long-term current use of insulin E11.42 [place] [address] [place] [id number] [address] [place] [phone] Feb, Chronic pain disorder G89.4 [place] [id number] [place] [address] Jan, [place] [address] [address] Jan, Pharyngitis, unspecified vashti ology J02.9 ; Fibromyalgia M79.7 and Chronic pain disorder G89.4 [place] [address] [place] [id number] [address] [place] [address] Jan, [place] [address] [place] [id number] [address] [place] [address] Jan, [place] [address] [address] Jan, [place] [address] [address] Jan, Type 2 diabetes mellitus wit h diabetic polyneuropathy, without long-term current use of insulin E11.42 ; Type 2 diabetes mellitus with hyperglycemia, without long-term current use of insulin E11.65 ; Degenerative disc disease, lumbar M51.36 ; Fibromyalgia M79.7 ; Restless leg syndrome G25.81 ; HTN (hypertension) I10 ; Hyperlipemia E78.5 ; Anxiety F41.9 ; Migraines G43.909 and High risk medication use Z79.[address] [address] Dec, Chronic pain disorder G89.[address] [address] Nov, Chronic pain disorder G89.[address] [address] Nov, [address] [address] Nov, Type 2 diabetes mellitus wit h hyperglycemia, without long-term current use of insulin E11.65 ; HTN (hypertension) I10 ; Hyperlipemia E78.5 ; Restless leg syndrome G25.81 ; Fibromyalgia M79.7 ; Chronic tension-type headache, intractable G44.221 ; Migraines G43.909 ; Chronic pain disorder G89.4 and Overweight (BMI 25.0-29.9) E66.[address] [address] Nov, [address] [address] Oct, Degenerative disc disease, l umbar M51.[address] [address] Sep, Degenerative disc disease, l umbar M51.36 [facility] [address] [place] [id number] [address] [place] [address] Sep, [place] [address] [facility] [id number] [address] [place] [address] Aug, Degenerative disc disease, l umbar M51.36 [place] [address] [place] [id number] [address] [place] [address] Aug, Fall from height of greater than 3 feet W19.XXXA ; Hematoma of left hip, subsequent encounter S70.02XD ; Fibromyalgia M79.7 ; Muscle spasms of both lower extremities M62.838 ; Anxiety F41.9 ; Degenerative disc disease, lumbar M51.36 ; Chronic pain disorder G89.4 and Chronic, continuous use of opioids F11.90 [place] [address] [place] [id number] [address] [place] [address] Jul, [place] [address] [place] [id number] [address] [place] [address] Jul, Degenerative disc disease, l umbar M51.36 [place] [address] [place] [id number] [address] [place] [phone] Jun, Degenerative disc disease, l umbar M51.36 [place] [address] [place] [id number] [address] [place] [address] May, Degenerative disc disease, l umbar M51.36 [place] [address] [place] [id number] [address] [place] [address] May, [place] [address] [facility] [id number] [address] [place] [address] Apr, Degenerative disc disease, l umbar M51.36 [place] [address] [place] [id number] [address] [place] [address] Apr, Degenerative disc disease, l umbar M51.36 [place] [address] [place] [id number] [address] [place] [address] March, Degenerative disc disease, l umbar M51.36 and Fall (on) (from) other stairs and steps, initial encounter W10.8XXA [facility] [address] [id number] [address] [place] [address] March, [facility] [address] [id number] [address] [place] [address] March, [facility] [address] [id number] [address] [place] [address] March, [facility] [address] [id number] [address] [place] [address] March, [facility] [address] [facility] [id number] [address] [place] [address] Feb, [facility] [address] [facility] [id number] [address] [place] [address] Jan, Fibromyalgia M79.7 [facility] [address] [facility] [id number] [address] [place] [address] Jan, [facility] [address] [facility] [id number] [address] [place] [address] Dec, Degenerative disc disease, l umbar M51.36 [facility] [address] [facility] [id number] [address] [place] [address] Dec, [facility] [address] [facility] [id number] [address] [place] [address] Nov, Degenerative disc disease, l umbar M51.36 ; Fibromyalgia M79.7 ; Restless leg syndrome G25.81 ; HTN (hypertension) I10 ; Hyperlipemia E78.5 ; Chronic tension-type headache, intractable G44.221 and OAB (overactive bladder) N32.81 [facility] [address] [facility] [id number] [address] [place] [address] Nov, [facility] [address] [place] [id number] [address] [place] [address] Oct, [facility] [address] [facility] [id number] [address] [place] [address] Oct, [facility] [address] [id number] [id number] Oct, [facility] [address] [facility] [id number] [address] [place] [address] Sep, [facility] [address] [facility] [id number] [address] [place] [address] Aug, [facility] [address] [id number] [address] [place] [phone] Aug, [facility] [address] [facility] [id number] [address] [place] [address] Aug, Degenerative disc disease, l umbar M51.36 [facility] [address] [facility] [id number] [address] [place] [address] Aug, Degenerative disc disease, l umbar M51.36 ; Fibromyalgia M79.7 ; Migraines G43.909 ; Hyperlipemia E78.5 ; Muscle spasms of both lower extremities M62.838 ; Chronic tension-type headache, intractable G44.221 ; HTN (hypertension) I10 and Restless leg syndrome G25.81 [facility] [address] [id number] [address] [place] [address] Jul, [facility] [address] [facility] [id number] [address] [place] [address] Jul, [facility] [address] [id number] [address] [place] [address] Jul, [facility] [address] [facility] [id number] [address] [place] [address] Jun, Chronic tension-type headach e, intractable G44.221 ; Muscle spasms of both lower extremities M62.838 ; Fibromyalgia M79.7 ; Degenerative disc disease, lumbar M51.36 ; Restless leg syndrome G25.81 ; Migraines G43.909 ; Hyperlipemia E78.5 and Anxiety F41.9 [facility] [address] [facility] [id number] [address] [place] [address] Jun, [facility] [address] [facility] [id number] [address] [place] [address] Jun, [facility] [address] [facility] [id number] [address] [place] [address] Jun, [facility] [address] [facility] [id number] [address] [place] [phone] Jun, [facility] [address] [facility] [id number] [address] [place] [address] May, Sebaceous cyst L72.3 [facility] [address] [facility] [id number] [address] [place] [address] May, Low back pain M54.5 [facility] [address] [facility] [id number] [address] [place] [address] Apr, [facility] [address] [facility] [id number] [address] [place] [address] Apr, Fibromyalgia M79.7 [facility] [address] [facility] [id number] [address] [place] [address] Apr, Degenerative disc disease, l umbar M51.36 ; Fibromyalgia M79.7 ; Migraines G43.909 ; Hyperlipemia E78.5 ; Restless leg syndrome G25.81 ; Other intractable trigeminal autonomic cephalgia (TAC) G44.091 ; Secondary hypertension I15.9 and Anxiety F41.9 [facility] [address] [facility] [id number] [address] [place] [address] March, 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 and HTN (hypertension) I10 [facility] [address] [facility] [id number] [address] [place] [address] March, Fibromyalgia M79.7 [facility] [address] [facility] [id number] [address] [place] [address] Feb, [facility] [address] [facility] [id number] [address] [place] [address] Feb, [facility] [address] [place] [id number] [address] [place] [address] Feb, [facility] [address] [place] [id number] [address] [place] [address] Feb, Hyperlipemia E78.5 [facility] [address] [place] [id number] [address] [place] [address] Feb, Migraines G43.909 ; Fibromya lgia M79.7 ; Degenerative disc disease, lumbar M51.36 ; Restless leg syndrome G25.81 ; HTN (hypertension) I10 and Tobacco abuse counseling Z71.6 [facility] [address] [place] [id number] [address] [place] [address] Feb, [facility] [address] [place] [id number] [address] [place] [address] Jan, [facility] [address] [place] [id number] [address] [place] [address] Jan, [facility] [address] [place] [id number] [address] [place] [address] Dec, [facility] [address] [place] [id number] [address] [place] [address] Dec, Degenerative disc disease, l umbar M51.36 ; Restless leg syndrome G25.81 ; Migraines G43.909 ; HTN (hypertension) I10 ; Fibromyalgia M79.7 and Other long-term (current) drug therapy Z79.899 [facility] [address] [place] [id number] [address] [place] [address] Dec, [facility] [address] [place] [id number] [address] [place] [address] Nov, [facility] [address] [place] [id number] [address] [place] [address] Nov, [facility] [address] [facility] [id number] [address] [place] [address] Oct, [facility] [address] [facility] [id number] [address] [place] [address] Oct, [facility] [address] [facility] [id number] [address] [place] [address] Oct, [facility] [address] [facility] [id number] [address] [place] [address] Sep, [facility] [address] [facility] [id number] [address] [place] [address] Sep, Routine gynecological examin ation V72.31 ; Degenerative disc disease, lumbar M51.36 ; Fibromyalgia M79.7 ; Restless leg syndrome G25.81 ; Migraines G43.909 and Well woman exam Z01.419 [facility] [address] [facility] [id number] [address] [place] [address] Sep, [facility] [address] [facility] [id number] [address] [place] [address] Aug, [facility] [address] [facility] [id number] [address] [place] [address] Aug, Migraines G43.909 ; Degenera tive disc disease, lumbar M51.36 ; Fibromyalgia M79.7 ; Restless leg syndrome G25.81 and HTN (hypertension) I10 [facility] [address] [facility] [id number] [address] [place] [address] Aug, [facility] [address] [facility] [id number] [address] [place] [address] Aug, [facility] [address] [facility] [id number] [address] [place] [address] Jul, [facility] [address] [facility] [id number] [address] [place] [address] Jul, [facility] [address] [place] [id number] [address] [place] [address] Jun, Fibromyalgia 729.1 ; Lumbago 724.2 ; Restless leg syndrome 333.94 ; Migraines 346.90 and Elevated blood pressure (not hypertension) 796.2 [facility] [address] [id number] [address] [place] [address] May, Fibromyalgia 729.1 ; Nontoxi c uninodular goiter 241.0 ; Lumbago 724.2 ; Restless leg syndrome 333.94 and Migraines 346.90 [facility] [address] [id number] [address] [place] [address] Feb, [facility] [address] [id number] [address] [place] [address] Feb, [facility] [address] [id number] [address] [place] [address] Jan, [facility] [address] [id number] [address] [place] [phone] Jan, [facility] [address] [id number] [address] [place] [address] Jan, [facility] [address] [facility] [id number] [address] [place] [phone] Jan, [facility] [address] [id number] [address] [place] [address] Jan, [facility] [address] [id number] [address] [place] [phone] Jan, [facility] [address] [id number] [address] [place] [phone] Jan, [facility] [address] [id number] [address] [place] [address] Jan, [facility] [address] [id number] [address] [place] [phone] Dec, [facility] [address] [id number] [address] [place] [address] Dec, [facility] [address] [id number] [address] [place] [phone] Dec, [facility] [address] [id number] [address] [place] [address] Dec, [facility] [address] [id number] [address] [place] [phone] Dec, [facility] [address] [id number] [address] [place] [id number] Dec, [facility] [address] [id number] [address] [place] [address] Dec, [facility] [address] [id number] [address] [place] [phone] Dec, [facility] [address] [id number] [address] [place] [address] Dec, [facility] [address] [id number] [address] [place] [id number] Dec, [facility] [address] [id number] [address] [place] [phone] Dec, [facility] [address] [id number] [address] [place] [id number] Nov, [facility] [address] [id number] [address] [place] [phone] Nov, IMMUNIZATIONS No Known Immunizations SOCIAL HISTORY [...] History surgery Hospitalization History childbirth Hospitalization History [facility] ER for migraine
--- OUTSIDE RECORDS SUMMARY | 2020-02-04 15:02 | XMS REPORT ---
Author Author Caitie LAO Organization [facility] Address [address] [place] [address] Care Team Providers Care Leather Piece Inspector Name Role Phone MACIEJ LAO Unavailable PROBLEMS Type Condition ICD9-CM Code HMI91-DW Code Onset Dates Condition S tatus SNOMED Code Problem Migraines G43.909 Active 79697894 Problem Anxiety F41.9 Active 39877902 Problem Hyperlipemia E78.5 Active 6327310 4 Problem Type 2 diabetes mellitus wit h diabetic polyneuropathy, without long-term current use of insulin E11.42 Active 23022 006 Problem Type 2 diabetes mellitus wit h hyperglycemia, without long-term current use of insulin E11.65 Active 37625509 Problem OAB (overactive bladder) N32.81 Activ e 298769103 Problem Muscle spasms of both lower extremities M62.838 Active 658511012 Problem Chronic, continuous use of opioids F11.90 Active 286727472 Problem Chronic pain disorder G89.4 Active 775634963 Problem Fibromyalgia M79.7 Active 4054922 7 Problem Restless leg syndrome G25.81 Active 22768311 Problem Degenerative disc disease, lumbar M51.36 Active 91492809 Problem Vitamin D deficiency E55.9 Active 36218433 Problem HTN (hypertension) I10 Active 3 9214995 ALLERGIES No Information ENCOUNTERS Encounter Location Date Diagnosis [facility] [address] [facility] [id number] [address] [place] [phone] Apr, [facility] [address] [facility] [id number] [address] [place] [phone] March, Chronic pain disorder G89.4 [facility] [address] [facility] [id number] [address] [place] [phone] March, Type 2 diabetes mellitus wit h diabetic polyneuropathy, without long-term current use of insulin E11.42 [facility] [address] [facility] [id number] [address] [place] [phone] Feb, Chronic pain disorder G89.4 [facility] [address] [facility] [id number] [address] [place] [phone] Jan, [facility] [address] [facility] [id number] [address] [place] [address] Jan, Pharyngitis, unspecified vashti ology J02.9 ; Fibromyalgia M79.7 and Chronic pain disorder G89.4 [facility] [address] [facility] [id number] [address] [place] [phone] Jan, [facility] [address] [facility] [id number] [address] [place] [phone] Jan, [facility] [address] [place] [id number] [address] [place] [phone] Jan, [facility] [address] [place] [id number] [address] [place] [phone] Jan, Type 2 diabetes mellitus wit h diabetic polyneuropathy, without long-term current use of insulin E11.42 ; Type 2 diabetes mellitus with hyperglycemia, without long-term current use of insulin E11.65 ; Degenerative disc disease, lumbar M51.36 ; Fibromyalgia M79.7 ; Restless leg syndrome G25.81 ; HTN (hypertension) I10 ; Hyperlipemia E78.5 ; Anxiety F41.9 ; Migraines G43.909 and High risk medication use Z79.899 [facility] [address] [facility] [id number] [address] [place] [address] Dec, Chronic pain disorder G89.4 [facility] [address] [place] [id number] [address] [place] [phone] Nov, Chronic pain disorder G89.4 [facility] [address] [facility] [id number] [address] [place] [phone] Nov, [facility] [address] [place] [id number] [address] [place] [phone] Nov, Type 2 diabetes mellitus wit h hyperglycemia, without long-term current use of insulin E11.65 ; HTN (hypertension) I10 ; Hyperlipemia E78.5 ; Restless leg syndrome G25.81 ; Fibromyalgia M79.7 ; Chronic tension-type headache, intractable G44.221 ; Migraines G43.909 ; Chronic pain disorder G89.4 and Overweight (BMI 25.0-29.9) E66.[address] [id number] Nov, [address] [address] Oct, Degenerative disc disease, l umbar M51.[address] [address] Sep, Degenerative disc disease, l umbar M51.[address] [address] Sep, [address] [address] Aug, Degenerative disc disease, l umbar M51.[address] [address] Aug, Fall from height of greater than 3 feet W19.XXXA ; Hematoma of left hip, subsequent encounter S70.02XD ; Fibromyalgia M79.7 ; Muscle spasms of both lower extremities M62.838 ; Anxiety F41.9 ; Degenerative disc disease, lumbar M51.36 ; Chronic pain disorder G89.4 and Chronic, continuous use of opioids F11.[address] [address] Jul, [address] [address] Jul, Degenerative disc disease, l umbar M51.[address] [place] [address] Jun, Degenerative disc disease, l umbar M51.36 [facility] [address] [id number] [address] [place] [id number] May, Degenerative disc disease, l umbar M51.36 [facility] [address] [id number] [address] [place] [phone] May, [facility] [address] [id number] [address] [place] [address] Apr, Degenerative disc disease, l umbar M51.36 [facility] [address] [id number] [address] [place] [address] Apr, Degenerative disc disease, l umbar M51.36 [facility] [address] [id number] [address] [place] [phone] March, Degenerative disc disease, l umbar M51.36 and Fall (on) (from) other stairs and steps, initial encounter W10.8XXA [facility] [address] [id number] [address] [place] [phone] March, [facility] [address] [id number] [address] [place] [phone] March, [facility] [address] [id number] [address] [place] [phone] March, [facility] [address] [id number] [address] [place] [phone] March, [facility] [address] [id number] [address] [place] [phone] Feb, [facility] [address] [id number] [address] [place] [address] Jan, Fibromyalgia M79.7 [facility] [address] [id number] [address] [place] [phone] Jan, [facility] [address] [id number] [address] [place] [phone] Dec, Degenerative disc disease, l umbar M51.36 [facility] [address] [facility] [id number] [address] [place] [phone] Dec, [facility] [address] [facility] [id number] [address] [place] [address] Nov, Degenerative disc disease, l umbar M51.36 ; Fibromyalgia M79.7 ; Restless leg syndrome G25.81 ; HTN (hypertension) I10 ; Hyperlipemia E78.5 ; Chronic tension-type headache, intractable G44.221 and OAB (overactive bladder) N32.81 [facility] [address] [facility] [id number] [address] [place] [phone] Nov, [facility] [address] [facility] [id number] [address] [place] [phone] Oct, [facility] [address] [facility] [id number] [address] [place] [phone] Oct, [id number] [place] [id number] Oct, [facility] [address] [facility] [id number] [address] [place] [phone] Sep, [facility] [address] [facility] [id number] [address] [place] [phone] Aug, [facility] [address] [facility] [id number] [address] [place] [phone] Aug, [facility] [address] [facility] [id number] [address] [place] [phone] Aug, Degenerative disc disease, l umbar M51.36 [facility] [address] [facility] [id number] [address] [place] [address] Aug, Degenerative disc disease, l umbar M51.36 ; Fibromyalgia M79.7 ; Migraines G43.909 ; Hyperlipemia E78.5 ; Muscle spasms of both lower extremities M62.838 ; Chronic tension-type headache, intractable G44.221 ; HTN (hypertension) I10 and Restless leg syndrome G25.81 [facility] [address] [id number] [address] [place] [phone] 29 Jul, 2016 [facility] [address] [facility] [id number] [address] [place] [phone] Jul, [facility] [address] [facility] [id number] [address] [place] [phone] Jul, [facility] [address] [id number] [address] [place] [address] Jun, Chronic tension-type headach e, intractable G44.221 ; Muscle spasms of both lower extremities M62.838 ; Fibromyalgia M79.7 ; Degenerative disc disease, lumbar M51.36 ; Restless leg syndrome G25.81 ; Migraines G43.909 ; Hyperlipemia E78.5 and Anxiety F41.9 [facility] [address] [facility] [id number] [address] [place] [phone] Jun, [facility] [address] [id number] [address] [place] [phone] Jun, [facility] [address] [facility] [id number] [address] [place] [phone] Jun, [facility] [address] [facility] [id number] [address] [place] [phone] Jun, [facility] [address] [facility] [id number] [address] [place] [phone] May, Sebaceous cyst L72.3 [facility] [address] [id number] [address] [place] [phone] May, Low back pain M54.5 [facility] [address] [facility] [id number] [address] [place] [phone] Apr, [facility] [address] [facility] [id number] [address] [place] [phone] 16 Hoang, 2016 Fibromyalgia M79.7 [facility] [address] [facility] [id number] [address] [place] [address] Apr, Degenerative disc disease, l umbar M51.36 ; Fibromyalgia M79.7 ; Migraines G43.909 ; Hyperlipemia E78.5 ; Restless leg syndrome G25.81 ; Other intractable trigeminal autonomic cephalgia (TAC) G44.091 ; Secondary hypertension I15.9 and Anxiety F41.9 [facility] [address] [place] [id number] [address] [place] [address] March, Other chcf (current) dr amie therapy Z79.899 and HTN (hypertension) I10 [facility] [address] [place] [id number] [place] [phone] March, Fibromyalgia M79.7 [facility] [address] [place] [id number] [address] [place] [phone] Feb, [facility] [address] [place] [id number] [address] [place] [phone] Feb, [facility] [address] [place] [id number] [address] [place] [phone] Feb, [facility] [address] [place] [id number] [address] [place] [address] Feb, Hyperlipemia E78.5 [facility] [address] [place] [id number] [address] [place] [phone] Feb, Migraines G43.909 ; Fibromya lgia M79.7 ; Degenerative disc disease, lumbar M51.36 ; Restless leg syndrome G25.81 ; HTN (hypertension) I10 and Tobacco abuse counseling Z71.6 [facility] [address] [place] [id number] [address] [place] [phone] Feb, [facility] [address] [facility] [id number] [address] [place] [id number] Jan, [facility] [address] [place] [id number] [address] [place] [phone] Jan, [facility] [address] [facility] [id number] [address] [place] [phone] Dec, [facility] [address] [facility] [id number] [address] [place] [phone] Dec, HTN (hypertension) I10 ; Deg enerative disc disease, lumbar M51.36 ; Restless leg syndrome G25.81 ; Migraines G43.909 ; Fibromyalgia M79.7 and Other tile shader (current) drug therapy Z79.899 [facility] [address] [id number] [address] [place] [phone] Dec, [facility] [address] [id number] [address] [place] [phone] Nov, [facility] [address] [place] [id number] [address] [place] [phone] Nov, [facility] [address] [place] [id number] [address] [place] [phone] Oct, [facility] [address] [facility] [id number] [address] [place] [phone] Oct, [facility] [address] [facility] [id number] [address] [place] [phone] Oct, [facility] [address] [place] [id number] [address] [place] [phone] Sep, [facility] [address] [place] [id number] [address] [place] [phone] Sep, Routine gynecological examin ation V72.31 ; Degenerative disc disease, lumbar M51.36 ; Fibromyalgia M79.7 ; Restless leg syndrome G25.81 ; Migraines G43.909 and Well woman exam Z01.419 [facility] [address] [id number] [address] [place] [address] Sep, [facility] [address] [facility] [id number] [address] [place] [phone] Aug, [facility] [address] [place] [id number] [address] [place] [address] Aug, Migraines G43.909 ; Degenera tive disc disease, lumbar M51.36 ; Fibromyalgia M79.7 ; Restless leg syndrome G25.81 and HTN (hypertension) I10 [facility] [address] [place] [id number] [place] [phone] Aug, [facility] [address] [phone] Aug, [facility] [address] [phone] Jul, [facility] [address] [address] Jul, [facility] [address] [place] [id number] [place] [address] Jun, Fibromyalgia 729.1 ; Lumbago 724.2 ; Restless leg syndrome 333.94 ; Migraines 346.90 and Elevated blood pressure (not hypertension) 796.2 [facility] [address] [address] May, Fibromyalgia 729.1 ; Nontoxi c uninodular goiter 241.0 ; Lumbago 724.2 ; Restless leg syndrome 333.94 and Migraines 346.90 [facility] [address] [id number] Feb, [facility] [address] [place] [id number] [place] [phone] Feb, [facility] [address] [phone] Jan, [facility] [address] [place] [id number] [place] [address] Jan, [facility] [address] [address] Jan, [facility] [address] [id number] [address] [place] [address], [place] [address] Jan, [facility] [address] [id number] [address] [place] [address], [place] [address] Jan, [facility] [address] [id number] [address] [place] [address], [place] [address] Jan, 2014 [facility] [address] [id number] [address] [place] [address], [place] [address] Jan, 2014 [facility] [address] [id number] [address] [place] [address], [place] [address] Jan, [facility] [address] [id number] [address] [place] [address], [place] [address] Dec, 2014 [facility] [address] [id number] [address] [place] [address], [place] [address] Dec, 2014 [facility] [address] [id number] [address] [place] [address], [place] [address] Dec, 2014 [facility] [address] [id number] [address] [place] [address], [place] [address] Dec, 2014 [facility] [address] [id number] [address] [place] [address], [place] [address] Dec, 2014 [facility] [address] [id number] [address] [place] [address], [place] [address] Dec, 2014 [facility] [address] [id number] [address] [place] [address], [place] [address] Dec, 2014 [facility] [address] [id number] [address] [place] [address], [place] [address] Dec, 2014 [facility] [address] [id number] [address] [place] [address], [place] [address] Dec, 2014 [facility] [address] [id number] [address] [place] [address], [place] [address] 04 Dec, 2014 [facility] [address] [facility] [id number] [address] [place] [phone] Dec, [facility] [address] [facility] [id number] [address] [place] [phone] Nov, [facility] [address] [facility] [id number] [address] [place] [phone] Nov, IMMUNIZATIONS No Known Immunizations SOCIAL HISTORY Never Assessed REASON FOR VISIT Controlled Refill Request- Due 10/01 PLAN OF CARE VITAL SIGNS MEDICATIONS Medication Instructions Dosage Frequency Start Date End Date Duration S thaniaus Hydrocodone-Acetaminophen 10-325 MG Orally every 6 hrs [...]
--- OUTSIDE RECORDS SUMMARY | 2020-02-04 15:02 | XMS REPORT ---
Author Author Caitie ALLEN Organization [facility] Address [address] [place] [address] Care Team Providers Care Medical Assistant Dermatology Name Role Phone CARMELITA ALLEN Unavailable PROBLEMS Type Condition ICD9-CM Code GGD45-TP Code Onset Dates Condition S tatus SNOMED Code Problem Restless leg syndrome G25.81 Active 87318146 Problem Hyperlipemia E78.5 Active 3254539 4 Problem Degenerative disc disease, lumbar M51.36 Active 25085903 Problem Well woman exam Z01.419 Active 3103 17097 Problem Migraines G43.909 Active 18677928 Problem Fibromyalgia M79.7 Active 5285552 7 Problem HTN (hypertension) I10 Active 3 8644636 Problem Chronic pain disorder G89.4 Active 752657108 Problem Chronic, continuous use of opioids F11.90 Active 215815397 Problem Chronic tension-type headache, intractable G44.221 Active 447656919 Problem Anxiety F41.9 Active 07293415 Problem OAB (overactive bladder) N32.81 Activ e 102884174 Problem Muscle spasms of both lower extremities M62.838 Active 759530852 ALLERGIES No Information SOCIAL HISTORY Never Assessed PLAN OF CARE VITAL SIGNS MEDICATIONS Unknown Medications RESULTS No Results PROCEDURES No Known procedures IMMUNIZATIONS No Known Immunizations MEDICAL (GENERAL) HISTORY Type Description Date Medical History fibromyalgia Medical History degenerative disk disease Medical History degenerative arthritis Surgical History hysterectomy Surgical History several lymph nodes removed Surgical History tonsillectomy Surgical History tubal ligation Hospitalization History surgery Hospitalization History childbirth Hospitalization History [facility] for migraine
--- OUTSIDE RECORDS SUMMARY | 2020-02-04 15:02 | XMS REPORT ---
Author Caitie Otero [facility] [employer] Address Unknown Phone Unavailable Care Team Providers Care Gis Professor Name Role Phone CARMELITA ALLEN Unavailable Allergies No Known Allergies Problems Problem Type Condition Code Onset Dates Condition Statu s Problem Fibromyalgia M79.7 Active Problem Restless leg syndrome G25.81 Active Problem Degenerative disc disease, lumbar M51.36 Active Problem Well woman exam Z01.419 Active Problem Migraines G43.909 Active Problem HTN (hypertension) I10 Active Medications Medication Code System Code Instructions Start Date End Date Status Dosage Requip [facility] [address]-53 2 MG Orally Once a day Nov 03, 2015 1 tablet 1 to 3 hours before bedtime Meloxicam [facility] [address]-76 15 MG Orally Once a day Nov 03, 2015 Dec 03, 2015 1 tablet Gabapentin [facility] [address]-33 400 MG Orally Three times a day Nov 03, 2015 1 capsule Results No Known Results Summary Purpose eClinicalWorks Submission
--- OUTSIDE RECORDS SUMMARY | 2020-02-04 15:02 | XMS REPORT ---
Author Caitie Otero [facility] [employer] Address Unknown Phone Unavailable Care Team Providers Care Systematic Theology Professor Name Role Phone CARMELITA ALLEN CP Unavailable Allergies No Known Allergies Problems Problem Type Condition Code Onset Dates Condition Statu s Problem Well woman exam Z01.419 Active Problem Migraines G43.909 Active Problem HTN (hypertension) I10 Active Problem Muscle spasms of both lower extremities M62.838 Active Problem Anxiety F41.9 Active Problem Chronic tension-type headache, intractable G44.221 Active Problem Fibromyalgia M79.7 Active Problem Restless leg syndrome G25.81 Active Problem Hyperlipemia E78.5 Active Problem Degenerative disc disease, lumbar M51.36 Active Medications Medication Code System Code Instructions Start Date End Date Status Dosage Hydrocodone-Acetaminophen [facility] [address]-12 7.5-32 5 MG Orally ( due Nove 4 ( 4 times a day Jul 06, 2015 1 tablet as need ed Results No Known Results Summary Purpose [employer] Submission
--- OUTSIDE RECORDS SUMMARY | 2020-02-04 15:02 | XMS REPORT ---
Author Author Caitie RON Organization [employer] Address Unknown Phone Unavailable Care Team Providers Care Boat Carpenter Name Role Phone MEENU RON CP Unavailable Allergies No Known Allergies Problems Problem Type Condition Code Onset Dates Condition Statu s Problem Fibromyalgia M79.7 Active Problem Restless leg syndrome G25.81 Active Problem Degenerative disc disease, lumbar M51.36 Active Problem Well woman exam Z01.419 Active Problem Migraines G43.909 Active Problem HTN (hypertension) I10 Active Medications Medication Code System Code Instructions Start Date End Date Status Dosage Hydrocodone-Acetaminophen [facility] [address]-37 7.5-325 MG Ora lly 3 times a day Jul 06, 2015 1 tablet as needed Results No Known Results Summary Purpose [employer]ClinicalWorks Submission
--- OUTSIDE RECORDS SUMMARY | 2020-02-04 15:02 | XMS REPORT ---
Author Author Caitie ALLEN Organization [facility] Address [address] [place] [address] Care Team Providers Care Cemetery Warden Name Role Phone CARMELITA ALLEN Unavailable PROBLEMS Type Condition ICD9-CM Code [id number] Code Onset Dates Condition S tatus SNOMED Code Problem Restless leg syndrome G25.81 Active 83787781 Problem HTN (hypertension) I10 Active 3 6070186 Problem Degenerative disc disease, lumbar M51.36 Active 14979118 Problem Well woman exam Z01.419 Active 3103 52800 Problem Migraines G43.909 Active 70195356 Problem OAB (overactive bladder) N32.81 Activ e 302419033 Problem Muscle spasms of both lower extremities M62.838 Active 907322133 Problem Hyperlipemia E78.5 Active 8009613 4 Problem Fibromyalgia M79.7 Active 2488915 7 Problem Chronic tension-type headache, intractable G44.221 Active 081443191 Problem Anxiety F41.9 Active 33494428 ALLERGIES No Information SOCIAL HISTORY Never Assessed PLAN OF CARE VITAL SIGNS MEDICATIONS Medication Instructions Dosage Frequency Start Date End Date Duration S tatus Hydrocodone-Acetaminophen 7.5-325 MG Orally ( due Nove 4 ( 4 times a day 1 tablet as needed 6h Dec, 28 days Active RESULTS No Results PROCEDURES No Known procedures IMMUNIZATIONS No Known Immunizations MEDICAL (GENERAL) HISTORY Type Description Date Medical History fibromyalgia Medical History degenerative disk disease Medical History degenerative arthritis Surgical History hysterectomy Surgical History several lymph nodes removed Surgical History tonsillectomy Surgical History tubal ligation Hospitalization History surgery Hospitalization History childbirth Hospitalization History [facility] for migraine
--- OUTSIDE RECORDS SUMMARY | 2020-02-04 15:02 | XMS REPORT ---
Author Author Caitie QUARLES Organization [facility] Address [address] [place] [address] Care Team Providers Care Garment Looper Name Role Phone QUARLESSONYA Lamas Unavailable PROBLEMS Type Condition ICD9-CM Code KTT71-DA Code Onset Dates Condition S tatus SNOMED Code Problem Anxiety F41.9 Active 65849206 Problem OAB (overactive bladder) N32.81 Activ e 958639634 Problem Muscle spasms of both lower extremities M62.838 Active 148620704 Problem Chronic tension-type headache, intractable G44.221 Active 750611179 Problem Overweight (BMI 25.0-29.9) E66.3 Act ramana 240861917 Problem Chronic, continuous use of opioids F11.90 Active 371977456 Problem Chronic pain disorder G89.4 Active 149714393 Problem Type 2 diabetes mellitus wit h diabetic polyneuropathy, without long-term current use of insulin E11.42 Active 43468 006 Problem Type 2 diabetes mellitus wit h hyperglycemia, without long-term current use of insulin E11.65 Active 07257364 Problem Vitamin D deficiency E55.9 Active 49066928 Problem Fibromyalgia M79.7 Active 8896732 7 Problem HTN (hypertension) I10 Active 3 0114730 Problem Restless leg syndrome G25.81 Active 42587163 Problem Migraines G43.909 Active 28051524 Problem Degenerative disc disease, lumbar M51.36 Active 66183634 Problem Hyperlipemia E78.5 Active 4810024 4 ALLERGIES Substance Reaction Event Type Date Status Amoxicillin hives Drug Allergy Jan, Active tape rash Non Drug Allergy Jan, Active ENCOUNTERS Encounter Location Date Diagnosis [facility] [address] [facility] [id number] [address] [place] [phone] Jul, [facility] [address] [facility] [id number] [address] [place] [phone] Apr, Chronic pain disorder G89.4 [facility] [address] [facility] [id number] [address] [place] [phone] Apr, Type 2 diabetes mellitus wit h diabetic polyneuropathy, without long-term current use of insulin E11.42 ; HTN (hypertension) I10 ; Hyperlipemia E78.5 ; Fibromyalgia M79.7 ; Degenerative disc disease, lumbar M51.36 ; Chronic pain disorder G89.4 ; Chronic, continuous use of opioids F11.90 ; Vitamin D deficiency E55.9 ; Anxiety F41.9 ; Chronic tension-type headache, intractable G44.221 and Overweight (BMI 25.0-29.9) E66.3 [place] [address] [facility] [id number] [address] [place] [phone] March, Chronic pain disorder G89.4 [place] [address] [place] [id number] [address] [place] [phone] March, Type 2 diabetes mellitus wit h diabetic polyneuropathy, without long-term current use of insulin E11.42 [place] [address] [facility] [id number] [address] [place] [phone] Feb, Chronic pain disorder G89.4 [place] [address] [facility] [id number] [address] [place] [phone] Jan, [place] [address] [place] [id number] [address] [place] [phone] Jan, Pharyngitis, unspecified vashti ology J02.9 ; Fibromyalgia M79.7 and Chronic pain disorder G89.4 [place] [address] [facility] [id number] [address] [place] [phone] Jan, [place] [address] [place] [id number] [address] [place] [phone] Jan, [place] [address] [facility] [id number] [address] [place] [phone] Jan, [place] [address] [place] [id number] [address] [place] [phone] Jan, Type 2 diabetes mellitus wit h diabetic polyneuropathy, without long-term current use of insulin E11.42 ; Type 2 diabetes mellitus with hyperglycemia, without long-term current use of insulin E11.65 ; Degenerative disc disease, lumbar M51.36 ; Fibromyalgia M79.7 ; Restless leg syndrome G25.81 ; HTN (hypertension) I10 ; Hyperlipemia E78.5 ; Anxiety F41.9 ; Migraines G43.909 and High risk medication use Z79.899 [place] [address] [id number] Dec, Chronic pain disorder G89.4 [place] [address] [id number] Nov, Chronic pain disorder G89.4 [place] [address] [id number] Nov, [place] [address] [id number] Nov, Type 2 diabetes mellitus wit h hyperglycemia, without long-term current use of insulin E11.65 ; HTN (hypertension) I10 ; Hyperlipemia E78.5 ; Restless leg syndrome G25.81 ; Fibromyalgia M79.7 ; Chronic tension-type headache, intractable G44.221 ; Migraines G43.909 ; Chronic pain disorder G89.4 and Overweight (BMI 25.0-29.9) E66.3 [place] [address] [id number] Nov, [place] [address] [id number] Oct, Degenerative disc disease, l umbar M51.36 [place] [address] [id number] Sep, Degenerative disc disease, l umbar M51.36 [place] [address] [address] Sep, [facility] [address] [address] Aug, Degenerative disc disease, l umbar M51.36 [place] [address] [id number] Aug, Fall from height of greater than 3 feet W19.XXXA ; Hematoma of left hip, subsequent encounter S70.02XD ; Fibromyalgia M79.7 ; Muscle spasms of both lower extremities M62.838 ; Anxiety F41.9 ; Degenerative disc disease, lumbar M51.36 ; Chronic pain disorder G89.4 and Chronic, continuous use of opioids F11.90 [place] [address] [id number] Jul, [place] [address] [address] Jul, Degenerative disc disease, l umbar M51.36 [place] [address] [id number] Jun, Degenerative disc disease, l umbar M51.36 [place] [address] [address] May, Degenerative disc disease, l umbar M51.36 [place] [address] [address] May, [place] [address] [address] Apr, Degenerative disc disease, l umbar M51.36 [place] [address] [place] [id number] [address] [place] [phone] Apr, Degenerative disc disease, l umbar M51.36 [place] [address] [place] [id number] [address] [place] [phone] March, Degenerative disc disease, l umbar M51.36 and Fall (on) (from) other stairs and steps, initial encounter W10.8XXA [place] [address] [facility] [id number] [address] [place] [phone] March, [facility] [address] [facility] [id number] [address] [place] [phone] March, [facility] [address] [facility] [id number] [address] [place] [phone] March, [facility] [address] [facility] [id number] [address] [place] [phone] March, [facility] [address] [facility] [id number] [address] [place] [phone] Feb, [facility] [address] [facility] [id number] [address] [place] [phone] Jan, Fibromyalgia M79.7 [facility] [address] [place] [id number] [address] [place] [phone] Jan, [facility] [address] [facility] [id number] [address] [place] [phone] Dec, Degenerative disc disease, l umbar M51.36 [facility] [address] [facility] [id number] [address] [place] [phone] Dec, [facility] [address] [facility] [id number] [address] [place] [phone] Nov, Degenerative disc disease, l umbar M51.36 ; Fibromyalgia M79.7 ; Restless leg syndrome G25.81 ; HTN (hypertension) I10 ; Hyperlipemia E78.5 ; Chronic tension-type headache, intractable G44.221 and OAB (overactive bladder) N32.81 [facility] [address] [facility] [id number] [address] [place] [phone] Nov, [facility] [address] [facility] [id number] [address] [place] [phone] Oct, [facility] [address] [place] [id number] [address] [place] [phone] Oct, [id number] CHARYDavid [id number] Oct, [facility] [address] [facility] [id number] [address] [place] [phone] Sep, [facility] [address] [facility] [id number] [address] [place] [phone] Aug, [facility] [address] [facility] [id number] [address] [place] [phone] Aug, [facility] [address] [place] [id number] [address] [place] [phone] Aug, Degenerative disc disease, l umbar M51.36 [facility] [address] [place] [id number] [address] [place] [phone] Aug, Degenerative disc disease, l umbar M51.36 ; Fibromyalgia M79.7 ; Migraines G43.909 ; Hyperlipemia E78.5 ; Muscle spasms of both lower extremities M62.838 ; Chronic tension-type headache, intractable G44.221 ; HTN (hypertension) I10 and Restless leg syndrome G25.81 [facility] [address] [place] [id number] [address] [place] [phone] Jul, [facility] [address] [place] [id number] [address] [place] [phone] Jul, [facility] [address] [place] [id number] [address] [place] [phone] Jul, [facility] [address] [place] [id number] [address] [place] [phone] Jun, Chronic tension-type headach e, intractable G44.221 ; Muscle spasms of both lower extremities M62.838 ; Fibromyalgia M79.7 ; Degenerative disc disease, lumbar M51.36 ; Restless leg syndrome G25.81 ; Migraines G43.909 ; Hyperlipemia E78.5 and Anxiety F41.9 [facility] [address] [facility] [id number] [address] [place] [phone] Jun, [facility] [address] [id number] [address] [place] [phone] Jun, [facility] [address] [facility] [id number] [address] [place] [phone] Jun, [facility] [address] [id number] [address] [place] [phone] Jun, [facility] [address] [facility] [id number] [address] [place] [phone] May, Sebaceous cyst L72.3 [facility] [address] [facility] [id number] [address] [place] [phone] May, Low back pain M54.5 [facility] [address] [facility] [id number] [address] [place] [phone] Apr, [facility] [address] [facility] [id number] [address] [place] [phone] Apr, Fibromyalgia M79.7 [facility] [address] [facility] [id number] [address] [place] [phone] Apr, Degenerative disc disease, l umbar M51.36 ; Fibromyalgia M79.7 ; Migraines G43.909 ; Hyperlipemia E78.5 ; Restless leg syndrome G25.81 ; Other intractable trigeminal autonomic cephalgia (TAC) G44.091 ; Secondary hypertension I15.9 and Anxiety F41.9 [facility] [address] [facility] [id number] [address] [place] [phone] March, Other superintendent container terminal (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) dr amie potter Z79.899 and HTN (hypertension) I10 [facility] [address] [facility] [id number] [address] [place] [phone] March, Fibromyalgia M79.7 [facility] [address] [facility] [id number] [address] [place] [phone] Feb, [facility] [address] [facility] [id number] [address] [place] [phone] Feb, [facility] [address] [facility] [id number] [address] [place] [phone] Feb, [facility] [address] [facility] [id number] [address] [place] [phone] Feb, Hyperlipemia E78.5 [facility] [address] [facility] [id number] [address] [place] [phone] Feb, Migraines G43.909 ; Fibromya lgia M79.7 ; Degenerative disc disease, lumbar M51.36 ; Restless leg syndrome G25.81 ; HTN (hypertension) I10 and Tobacco abuse counseling Z71.6 [facility] [address] [facility] [id number] [address] [place] [phone] Feb, [facility] [address] [facility] [id number] [address] [place] [phone] Jan, [facility] [address] [place] [id number] [address] [place] [phone] Jan, [facility] [address] [facility] [id number] [address] [place] [phone] Dec, [facility] [address] [facility] [id number] [address] [place] [phone] Dec, Degenerative disc disease, l umbar M51.36 ; Restless leg syndrome G25.81 ; Migraines G43.909 ; HTN (hypertension) I10 ; Fibromyalgia M79.7 and Other superintendent container terminal (current) drug therapy Z79.899 [facility] [address] [facility] [id number] [address] [place] [phone] Dec, [facility] [address] [facility] [id number] [address] [place] [phone] Nov, [facility] [address] [facility] [id number] [address] [place] [phone] Nov, [facility] [address] [facility] [id number] [address] [place] [phone] Oct, [facility] [address] [facility] [id number] [address] [place] [phone] Oct, [facility] [address] [facility] [id number] [address] [place] [phone] Oct, [facility] [address] [facility] [id number] [address] [place] [phone] Sep, [facility] [address] [place] [id number] [address] [place] [phone] Sep, Routine gynecological examin ation V72.31 ; Degenerative disc disease, lumbar M51.36 ; Fibromyalgia M79.7 ; Restless leg syndrome G25.81 ; Migraines G43.909 and Well woman exam Z01.419 [facility] [address] [facility] [id number] [address] [place] [phone] Sep, [facility] [address] [place] [id number] [address] [place] [phone] Aug, [facility] [address] [place] [id number] [address] [place] [phone] Aug, Migraines G43.909 ; Degenera tive disc disease, lumbar M51.36 ; Fibromyalgia M79.7 ; Restless leg syndrome G25.81 and HTN (hypertension) I10 [facility] [address] [facility] [id number] [address] [place] [phone] Aug, [facility] [address] [facility] [id number] [address] [place] [phone] Aug, [facility] [address] [facility] [id number] [address] [place] [phone] Jul, [facility] [address] [place] [id number] [address] [place] [phone] Jul, [facility] [address] [facility] [id number] [address] [place] [phone] Jun, Fibromyalgia 729.1 ; Lumbago 724.2 ; Restless leg syndrome 333.94 ; Migraines 346.90 and Elevated blood pressure (not hypertension) 796.2 [facility] [address] [id number] [address] [place] [phone] May, Fibromyalgia 729.1 ; Nontoxi c uninodular goiter 241.0 ; Lumbago 724.2 ; Restless leg syndrome 333.94 and Migraines 346.90 [facility] [address] [id number] [address] [place] [phone] 14 Feb, 2015 [facility] [address] [id number] [address] [place] [phone] Feb, [facility] [address] [id number] [address] [place] [id number] Jan, [facility] [address] [facility] [id number] [address] [place] [phone] Jan, [facility] [address] [facility] [id number] [address] [place] [phone] Jan, [facility] [address] [facility] [id number] [address] [place] [phone] Jan, [facility] [address] [facility] [id number] [address] [place] [phone] Jan, [facility] [address] [facility] [id number] [address] [place] [phone] Jan, [facility] [address] [facility] [id number] [address] [place] [phone] Jan, [facility] [address] [facility] [id number] [address] [place] [phone] Jan, [facility] [address] [facility] [id number] [address] [place] [phone] Dec, [facility] [address] [facility] [id number] [address] [place] [phone] Dec, [facility] [address] [facility] [id number] [address] [place] [phone] Dec, [facility] [address] [id number] [address] [place] [phone] Dec, 2014 [facility] [address] [id number] [address] [place] [phone] Dec, 2014 [facility] [address] [id number] [address] [place] [phone] Dec, 2014 [facility] [address] [id number] [address] [place] [phone] Dec, 2014 [facility] [address] [id number] [address] [place] [phone] Dec, 2014 [facility] [address] [id number] [address] [place] [phone] Dec, 2014 [facility] [address] [id number] [address] [place] [phone] Dec, 2014 [facility] [address] [id number] [address] [place] [phone] Dec, 2014 [facility] [address] [id number] [address] [place] [phone] Nov, [facility] [address] [id number] [address] [place] [phone] Nov, IMMUNIZATIONS No Known Immunizations SOCIAL HISTORY Never Assessed REASON FOR VISIT Diabetes. LUIS Hopkins, [facility] LE muscle pain. PLAN OF CARE Activity Details Follow Up 3 Months, prn Reason:CHM/DM VITAL SIGNS Height 63 in 2018-02-07 Weight 166 lbs 2018-02-07 Temperature 98.2 degrees Fahrenheit 2018-02-07 Heart Rate 97 bpm 2018-02-07 Respiratory Rate 18 2018-02-07 BMI 29.40 kg/m2 2018-02-07 Blood pressure systolic 116 mmHg 2018-02-07 Blood pressure diastolic 82 mmHg 2018-02-07 MEDICATIONS Medication Instructions Dosage Frequency Start Date End Date Duration S tatus Hydrocodone-Acetaminophen 10-325 MG Orally every 6 hrs 1 tablet as needed 6h Jan, Active Cyclobenzaprine HCl 10 mg Orally Three times a day 1 tablet as need ed 8h 10 Dec, 2016 Active Glucocard Expression Test 1 subcutaneously 2 times a day test 2 times per day 12h Nov, Active Lisinopril 10 mg Orally Once a day 1 tablet 24h Active Meloxicam 15 MG Orally Once a day 1 tablet 24h Active Gabapentin 400 MG TAKE ONE CAPSULE BY MOUTH THREE TIMES DAILY Active Requip 3 MG Orally Once a day at hs 1 tablet Aug, Active MetFORMIN HCl ER 500 mg Orally twice a day 2 tabs twice daily 12h Nov, 90 days Active Topamax 100 mg Orally Twice a day 1 tablet 12h Aug, Active Crestor 10 mg Orally Once a day 1 tablet 24h Feb, Active RESULTS No Results PROCEDURES Procedure Date Ordered Result Body Site GLYCATED HEMOGLOBIN TEST February 07, 2018 LIPID PANEL February 07, 2018 ASSAY THYROID STIM HORMONE February 07, 2018 COMPLETE CBC W/AUTO DIFF WBC February 07, 2018 ASSAY OF VITAMIN D February 07, 2018 INSTRUCTIONS MEDICATIONS ADMINISTERED No Known Medications MEDICAL (GENERAL) HISTORY Type Description Date Medical History fibromyalgia Medical History degenerative disk disease Medical History degenerative arthritis Medical History Diabetes Type 2 Surgical History parital hysterectomy 1986 Surgical History several lymph nodes removed- neck Surgical History tonsillectomy Surgical History tubal ligation Hospitalization History surgery Hospitalization History childbirth Hospitalization History [facility] ER for migraine
--- OUTSIDE RECORDS SUMMARY | 2020-02-04 15:02 | XMS REPORT ---
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 Name Role Phone MU MAYA Unavailable PROBLEMS Type Condition ICD9-CM Code UBX83-DI Code Onset Dates Condition S tatus SNOMED Code Problem Migraines G43.909 Active 12439790 Problem Anxiety F41.9 Active 53404231 Problem Hyperlipemia E78.5 Active 2242401 4 Problem Type 2 diabetes mellitus wit h diabetic polyneuropathy, without long-term current use of insulin E11.42 Active 38503 006 Problem Type 2 diabetes mellitus wit h hyperglycemia, without long-term current use of insulin E11.65 Active 91886876 Problem OAB (overactive bladder) N32.81 Activ e 753763265 Problem Muscle spasms of both lower extremities M62.838 Active 768227340 Problem Chronic, continuous use of opioids F11.90 Active 228758601 Problem Chronic pain disorder G89.4 Active 547564922 Problem Fibromyalgia M79.7 Active 6792447 7 Problem Restless leg syndrome G25.81 Active 45756464 Problem Degenerative disc disease, lumbar M51.36 Active 41167281 Problem Vitamin D deficiency E55.9 Active 89936971 Problem HTN (hypertension) I10 Active 3 1134870 ALLERGIES No Information ENCOUNTERS Encounter Location Date Diagnosis [facility] [address] [facility] [id number] [address] [place] [phone] Apr, [place] [address] [facility] [id number] [address] [place] [phone] Feb, [facility] [address] [facility] [id number] [address] [place] [phone] Jan, [facility] [address] [facility] [id number] [address] [place] [address] Jan, Pharyngitis, unspecified vashti ology J02.9 ; Fibromyalgia M79.7 and Chronic pain disorder G89.4 [place] [id number] [address] Jan, [facility] [address] [place] [id number] [place] [phone] Jan, [place] [address] [address] Jan, [place] [address] [place] [id number] [place] [address] Jan, Type 2 diabetes mellitus wit h diabetic polyneuropathy, without long-term current use of insulin E11.42 ; Type 2 diabetes mellitus with hyperglycemia, without long-term current use of insulin E11.65 ; Degenerative disc disease, lumbar M51.36 ; Fibromyalgia M79.7 ; Restless leg syndrome G25.81 ; HTN (hypertension) I10 ; Hyperlipemia E78.5 ; Anxiety F41.9 ; Migraines G43.909 and High risk medication use Z79.899 [place] [address] [address] Dec, Chronic pain disorder G89.4 [place] [address] [place] [id number] [address] [place] [phone] Nov, Chronic pain disorder G89.4 [place] [id number] [place] [address] Nov, [place] [address] [place] [id number] [address] [place] [address] Nov, Type 2 diabetes mellitus wit h hyperglycemia, without long-term current use of insulin E11.65 ; HTN (hypertension) I10 ; Hyperlipemia E78.5 ; Restless leg syndrome G25.81 ; Fibromyalgia M79.7 ; Chronic tension-type headache, intractable G44.221 ; Migraines G43.909 ; Chronic pain disorder G89.4 and Overweight (BMI 25.0-29.9) E66.3 [place] [address] [address] Nov, [place] [address] [address] Oct, Degenerative disc disease, l umbar M51.36 [place] [address] [place] [id number] [place] [address] Sep, Degenerative disc disease, l umbar M51.36 [place] [address] [place] [id number] [place] [address] Sep, [place] [address] [address] Aug, Degenerative disc disease, l umbar M51.36 [place] [address] [address] Aug, Fall from height of greater than 3 feet W19.XXXA ; Hematoma of left hip, subsequent encounter S70.02XD ; Fibromyalgia M79.7 ; Muscle spasms of both lower extremities M62.838 ; Anxiety F41.9 ; Degenerative disc disease, lumbar M51.36 ; Chronic pain disorder G89.4 and Chronic, continuous use of opioids F11.90 [place] [address] [address] Jul, [place] [address] [address] Jul, Degenerative disc disease, l umbar M51.36 [place] [address] [place] [id number] [place] [address] Jun, Degenerative disc disease, l umbar M51.36 [place] [address] [place] [id number] [place] [address] May, Degenerative disc disease, l umbar M51.36 [place] [address] [place] [id number] [place] [address] May, [place] [address] [id number] [address] [place] [id number] Apr, Degenerative disc disease, l umbar M51.36 [facility] [address] [id number] [address] [place] [address] Apr, Degenerative disc disease, l umbar M51.36 [facility] [address] [id number] [address] [place] [address] March, Degenerative disc disease, l umbar M51.36 and Fall (on) (from) other stairs and steps, initial encounter W10.8XXA [facility] [address] [id number] [address] [place] [address] March, [facility] [address] [id number] [address] [place] [address] March, [facility] [address] [id number] [address] [place] [address] March, [facility] [address] [id number] [address] [place] [address] March, [facility] [address] [id number] [address] [place] [address] Feb, [facility] [address] [id number] [address] [place] [address] Jan, Fibromyalgia M79.7 [facility] [address] [id number] [address] [place] [address] Jan, [facility] [address] [id number] [address] [place] [address] Dec, Degenerative disc disease, l umbar M51.36 [facility] [address] [id number] [address] [place] [address] Dec, [facility] [address] [id number] [address] [place] [address] Nov, Degenerative disc disease, l umbar M51.36 ; Fibromyalgia M79.7 ; Restless leg syndrome G25.81 ; HTN (hypertension) I10 ; Hyperlipemia E78.5 ; Chronic tension-type headache, intractable G44.221 and OAB (overactive bladder) N32.81 [facility] [address] [facility] [id number] [address] [place] [address] Nov, [facility] [address] [facility] [id number] [address] [place] [phone] Oct, [facility] [address] [facility] [id number] [address] [place] [address] Oct, [place] [address] [id number] [facility] [id number] Oct, [facility] [address] [facility] [id number] [address] [place] [address] Sep, [facility] [address] [facility] [id number] [address] [place] [address] Aug, [facility] [address] [facility] [id number] [address] [place] [address] Aug, [facility] [address] [facility] [id number] [address] [place] [address] Aug, Degenerative disc disease, l umbar M51.36 [facility] [address] [facility] [id number] [address] [place] [address] Aug, Degenerative disc disease, l umbar M51.36 ; Fibromyalgia M79.7 ; Migraines G43.909 ; Hyperlipemia E78.5 ; Muscle spasms of both lower extremities M62.838 ; Chronic tension-type headache, intractable G44.221 ; HTN (hypertension) I10 and Restless leg syndrome G25.81 [facility] [address] [facility] [id number] [address] [place] [phone] Jul, [facility] [address] [facility] [id number] [address] [place] [address] Jul, [facility] [address] [facility] [id number] [address] [place] [phone] Jul, [facility] [address] [facility] [id number] [address] [place] [address] Jun, Chronic tension-type headach e, intractable G44.221 ; Muscle spasms of both lower extremities M62.838 ; Fibromyalgia M79.7 ; Degenerative disc disease, lumbar M51.36 ; Restless leg syndrome G25.81 ; Migraines G43.909 ; Hyperlipemia E78.5 and Anxiety F41.9 [facility] [address] [id number] [address] [place] [address] Jun, [facility] [address] [id number] [address] [place] [phone] Jun, [facility] [address] [facility] [id number] [address] [place] [address] Jun, [facility] [address] [facility] [id number] [address] [place] [address] Jun, [facility] [address] [facility] [id number] [address] [place] [address] May, Sebaceous cyst L72.3 [facility] [address] [facility] [id number] [address] [place] [address] May, Low back pain M54.5 [facility] [address] [facility] [id number] [address] [place] [address] Apr, [facility] [address] [facility] [id number] [address] [place] [address] Apr, Fibromyalgia M79.7 [facility] [address] [facility] [id number] [address] [place] [address] Apr, Degenerative disc disease, l umbar M51.36 ; Fibromyalgia M79.7 ; Migraines G43.909 ; Hyperlipemia E78.5 ; Restless leg syndrome G25.81 ; Other intractable trigeminal autonomic cephalgia (TAC) G44.091 ; Secondary hypertension I15.9 and Anxiety F41.9 [facility] [address] [facility] [id number] [address] [place] [address] March, Other usp (current) dr amie therapy Z79.899 and HTN (hypertension) I10 [facility] [address] [facility] [id number] [address] [place] [address] March, Fibromyalgia M79.7 [facility] [address] [place] [id number] [address] [place] [address] Feb, [facility] [address] [place] [id number] [address] [place] [address] Feb, [facility] [address] [address] Feb, [place] [address] [place] [id number] [place] [address] Feb, Hyperlipemia E78.5 [place] [address] [place] [id number] [address] [place] [phone] Feb, Migraines G43.909 ; Fibromya lgia M79.7 ; Degenerative disc disease, lumbar M51.36 ; Restless leg syndrome G25.81 ; HTN (hypertension) I10 and Tobacco abuse counseling Z71.6 [place] [address] [place] [id number] [address] [place] [phone] Feb, [place] [address] [place] [id number] [address] [place] [phone] Jan, [facility] [address] [place] [id number] [address] [place] [address] Jan, [facility] [address] [place] [id number] [address] [place] [address] Dec, [facility] [address] [place] [id number] [address] [place] [address] Dec, HTN (hypertension) I10 ; Deg enerative disc disease, lumbar M51.36 ; Restless leg syndrome G25.81 ; Migraines G43.909 ; Fibromyalgia M79.7 and Other usp (current) drug therapy Z79.899 [facility] [address] [id number] [address] [place] [phone] Dec, [facility] [address] [id number] [address] [place] [address] Nov, [facility] [address] [id number] [address] [place] [address] Nov, [facility] [address] [id number] [address] [place] [phone] Oct, [facility] [address] [facility] [id number] [address] [place] [phone] Oct, [facility] [address] [facility] [id number] [address] [place] [address] Oct, [facility] [address] [facility] [id number] [address] [place] [address] Sep, [facility] [address] [id number] [address] [place] [address] Sep, Routine gynecological examin ation V72.31 ; Degenerative disc disease, lumbar M51.36 ; Fibromyalgia M79.7 ; Restless leg syndrome G25.81 ; Migraines G43.909 and Well woman exam Z01.419 [facility] [address] [facility] [id number] [address] [place] [address] Sep, [facility] [address] [facility] [id number] [address] [place] [address] Aug, [facility] [address] [facility] [id number] [address] [place] [address] Aug, Migraines G43.909 ; Degenera tive disc disease, lumbar M51.36 ; Fibromyalgia M79.7 ; Restless leg syndrome G25.81 and HTN (hypertension) I10 [facility] [address] [facility] [id number] [address] [place] [address] Aug, [facility] [address] [facility] [id number] [address] [place] [address] Aug, [facility] [address] [facility] [id number] [address] [place] [address] Jul, [facility] [address] [facility] [id number] [address] [place] [address] Jul, [facility] [address] [facility] [id number] [place] [address] Jun, Fibromyalgia 729.1 ; Lumbago 724.2 ; Restless leg syndrome 333.94 ; Migraines 346.90 and Elevated blood pressure (not hypertension) 796.2 [facility] [address] [facility] [id number] [address] [place] [address] May, Fibromyalgia 729.1 ; Nontoxi c uninodular goiter 241.0 ; Lumbago 724.2 ; Restless leg syndrome 333.94 and Migraines 346.90 [facility] [address] [facility] [id number] [address] [place] [address] Feb, [facility] [address] [facility] [id number] [address] [place] [address] Feb, [facility] [address] [facility] [id number] [address] [place] [id number] Jan, [facility] [address] [facility] [id number] [address] [place] [phone] Jan, [facility] [address] [facility] [id number] [address] [place] [address] Jan, [facility] [address] [facility] [id number] [address] [place] [address] Jan, [facility] [address] [facility] [id number] [address] [place] [address] Jan, [facility] [address] [facility] [id number] [address] [place] [address] Jan, [facility] [address] [id number] [address] [place] [phone] Jan, [facility] [address] [id number] [address] [place] [phone] Jan, [facility] [address] [id number] [address] [place] [address] Dec, 2014 [facility] [address] [id number] [address] [place] [address] Dec, 2014 [facility] [address] [id number] [address] [place] [id number] Dec, 2014 [facility] [address] [id number] [address] [place] [phone] Dec, 2014 [facility] [address] [id number] [address] [place] [address] Dec, 2014 [facility] [address] [id number] [address] [place] [id number] Dec, 2014 [facility] [address] [id number] [address] [place] [address] Dec, 2014 [facility] [address] [id number] [address] [place] [id number] Dec, [facility] [address] [id number] [address] [place] [address] Dec, [facility] [address] [id number] [address] [place] [phone] Dec, [facility] [address] [id number] [address] [place] [address] Dec, [facility] [address] [id number] [address] [place] [address] Nov, [facility] [address] [id number] [address] [place] [address] Nov, IMMUNIZATIONS No Known Immunizations SOCIAL HISTORY Never Assessed REASON FOR VISIT Hydrocodone 08/08 PLAN OF CARE VITAL SIGNS MEDICATIONS Medication Instructions Dosage Frequency Start Date End Date Duration Que anders Hydrocodone-Acetaminophen 10-325 MG Orally every 6 hrs 1 tablet as needed 6h 14 Jul, 2017 28 days Active RESULTS No Results PROCEDURES [...]
--- OUTSIDE RECORDS SUMMARY | 2020-02-04 15:02 | XMS REPORT ---
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 Phone SANTIAGO BE Unavailable PROBLEMS Type Condition ICD9-CM Code GES13-XV Code Onset Dates Condition S tatus SNOMED Code Problem Migraines G43.909 Active 80640013 Problem Anxiety F41.9 Active 30993707 Problem Hyperlipemia E78.5 Active 2026573 4 Problem Type 2 diabetes mellitus wit h diabetic polyneuropathy, without long-term current use of insulin E11.42 Active 20712 006 Problem Type 2 diabetes mellitus wit h hyperglycemia, without long-term current use of insulin E11.65 Active 93401106 Problem OAB (overactive bladder) N32.81 Activ e 670984905 Problem Muscle spasms of both lower extremities M62.838 Active 871116672 Problem Chronic, continuous use of opioids F11.90 Active 323892570 Problem Chronic pain disorder G89.4 Active 227450242 Problem Fibromyalgia M79.7 Active 6759957 7 Problem Restless leg syndrome G25.81 Active 75481492 Problem Degenerative disc disease, lumbar M51.36 Active 78353177 Problem Vitamin D deficiency E55.9 Active 24411895 Problem HTN (hypertension) I10 Active 3 9703663 ALLERGIES No Information ENCOUNTERS Encounter Location Date Diagnosis [facility] [address] [facility] [place] [id number] [address] [place] [id number] Apr, [facility] [address] [facility] [place] [id number] [address] [place] [id number] Feb, Chronic pain disorder G89.4 [facility] [address] [facility] [place] [id number] [address] [place] [address] Jan, [facility] [address] [facility] [place] [id number] [address] [place] [id number] Jan, Pharyngitis, unspecified vashti ology J02.9 ; Fibromyalgia M79.7 and Chronic pain disorder G89.4 [place] [address] [phone] Jan, [place] [address] [address] Jan, [place] [address] [address] Jan, [place] [address] [address] Jan, Type 2 diabetes mellitus wit h diabetic polyneuropathy, without long-term current use of insulin E11.42 ; Type 2 diabetes mellitus with hyperglycemia, without long-term current use of insulin E11.65 ; Degenerative disc disease, lumbar M51.36 ; Fibromyalgia M79.7 ; Restless leg syndrome G25.81 ; HTN (hypertension) I10 ; Hyperlipemia E78.5 ; Anxiety F41.9 ; Migraines G43.909 and High risk medication use Z79.899 [place] [address] [address] Dec, Chronic pain disorder G89.4 [place] [address] [place] [id number] [address] [place] [phone] Nov, Chronic pain disorder G89.4 [place] [address] [place] [id number] [address] [place] [phone] Nov, [place] [address] [place] [id number] [address] [place] [phone] Nov, Type 2 diabetes mellitus wit h hyperglycemia, without long-term current use of insulin E11.65 ; HTN (hypertension) I10 ; Hyperlipemia E78.5 ; Restless leg syndrome G25.81 ; Fibromyalgia M79.7 ; Chronic tension-type headache, intractable G44.221 ; Migraines G43.909 ; Chronic pain disorder G89.4 and Overweight (BMI 25.0-29.9) E66.3 [facility] [address] [place] [id number] [address] [place] [phone] Nov, [facility] [address] [place] [id number] [place] [phone] Oct, Degenerative disc disease, l umbar M51.36 [facility] [address] [place] [id number] [address] [place] [id number] Sep, Degenerative disc disease, l umbar M51.36 [place] [address] [place] [id number] [place] [phone] Sep, [place] [address] [place] [id number] [place] [id number] Aug, Degenerative disc disease, l umbar M51.36 [place] [address] [place] [id number] [place] [phone] Aug, Fall from height of greater than 3 feet W19.XXXA ; Hematoma of left hip, subsequent encounter S70.02XD ; Fibromyalgia M79.7 ; Muscle spasms of both lower extremities M62.838 ; Anxiety F41.9 ; Degenerative disc disease, lumbar M51.36 ; Chronic pain disorder G89.4 and Chronic, continuous use of opioids F11.90 [place] [address] [place] [id number] [place] [phone] Jul, [place] [address] [place] [id number] [place] [phone] Jul, Degenerative disc disease, l umbar M51.36 [place] [address] [place] [id number] [address] [place] [phone] Jun, Degenerative disc disease, l umbar M51.36 [place] [address] [place] [id number] [address] [place] [id number] May, Degenerative disc disease, l umbar M51.36 [place] [address] [place] [id number] [address] [place] [phone] May, [facility] [address] [id number] [address] [place] [phone] Apr, Degenerative disc disease, l umbar M51.36 [facility] [address] [id number] [address] [place] [id number] Apr, Degenerative disc disease, l umbar M51.36 [facility] [address] [id number] [address] [place] [phone] March, Degenerative disc disease, l umbar M51.36 and Fall (on) (from) other stairs and steps, initial encounter W10.8XXA [facility] [address] [id number] [address] [place] [phone] March, [facility] [address] [id number] [address] [place] [phone] March, [facility] [address] [id number] [address] [place] [phone] March, [facility] [address] [id number] [address] [place] [phone] March, [facility] [address] [id number] [address] [place] [id number] Feb, [facility] [address] [id number] [address] [place] [phone] Jan, Fibromyalgia M79.7 [facility] [address] [id number] [address] [place] [id number] Jan, [facility] [address] [id number] [address] [place] [address] Dec, Degenerative disc disease, l umbar M51.36 [facility] [address] [id number] [address] [place] [phone] Dec, [facility] [address] [id number] [address] [place] [id number] Nov, Degenerative disc disease, l umbar M51.36 ; Fibromyalgia M79.7 ; Restless leg syndrome G25.81 ; HTN (hypertension) I10 ; Hyperlipemia E78.5 ; Chronic tension-type headache, intractable G44.221 and OAB (overactive bladder) N32.81 [facility] [address] [facility] [place] [id number] [address] [place] [phone] Nov, [facility] [address] [facility] [place] [id number] [address] [place] [phone] Oct, [facility] [address] [facility] [place] [id number] [address] [place] [phone] Oct, [facility] [address] [id number] [facility] [id number] Oct, [facility] [address] [facility] [place] [id number] [address] [place] [phone] Sep, [facility] [address] [facility] [place] [id number] [address] [place] [phone] Aug, [facility] [address] [facility] [place] [id number] [address] [place] [phone] Aug, [facility] [address] [facility] [place] [id number] [address] [place] [phone] Aug, Degenerative disc disease, l umbar M51.36 [facility] [address] [facility] [place] [id number] [address] [place] [id number] Aug, Degenerative disc disease, l umbar M51.36 ; Fibromyalgia M79.7 ; Migraines G43.909 ; Hyperlipemia E78.5 ; Muscle spasms of both lower extremities M62.838 ; Chronic tension-type headache, intractable G44.221 ; HTN (hypertension) I10 and Restless leg syndrome G25.81 [facility] [address] [facility] [place] [id number] [address] [place] [phone] Jul, [facility] [address] [facility] [place] [id number] [address] [place] [phone] Jul, [facility] [address] [facility] [place] [id number] [address] [place] [id number] Jul, [facility] [address] [facility] [place] [id number] [address] [place] [id number] Jun, Chronic tension-type headach e, intractable G44.221 ; Muscle spasms of both lower extremities M62.838 ; Fibromyalgia M79.7 ; Degenerative disc disease, lumbar M51.36 ; Restless leg syndrome G25.81 ; Migraines G43.909 ; Hyperlipemia E78.5 and Anxiety F41.9 [facility] [address] [facility] [place] [id number] [address] [place] [phone] Jun, [facility] [address] [facility] [place] [id number] [address] [place] [id number] Jun, [facility] [address] [place] [id number] [address] [place] [id number] Jun, [facility] [address] [place] [id number] [address] [place] [phone] Jun, [facility] [address] [place] [id number] [place] [phone] May, Sebaceous cyst L72.3 [facility] [address] [facility] [place] [id number] [address] [place] [phone] May, Low back pain M54.5 [facility] [address] [facility] [place] [id number] [address] [place] [phone] Apr, [facility] [address] [place] [id number] [address] [place] [phone] Apr, Fibromyalgia M79.7 [facility] [address] [facility] [place] [id number] [address] [place] [phone] Apr, Degenerative disc disease, l umbar M51.36 ; Fibromyalgia M79.7 ; Migraines G43.909 ; Hyperlipemia E78.5 ; Restless leg syndrome G25.81 ; Other intractable trigeminal autonomic cephalgia (TAC) G44.091 ; Secondary hypertension I15.9 and Anxiety F41.9 [facility] [address] [facility] [place] [id number] [address] [place] [id number] March, 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 and HTN (hypertension) I10 [facility] [address] [facility] [place] [id number] [address] [place] [phone] March, Fibromyalgia M79.7 [facility] [address] [place] [id number] [address] [place] [phone] Feb, [facility] [address] [facility] [place] [id number] [address] [place] [phone] Feb, [place] [address] [place] [id number] [place] [phone] Feb, [place] [address] [place] [id number] [place] [phone] Feb, Hyperlipemia E78.5 [place] [address] [place] [id number] [place] [id number] Feb, Migraines G43.909 ; Fibromya lgia M79.7 ; Degenerative disc disease, lumbar M51.36 ; Restless leg syndrome G25.81 ; HTN (hypertension) I10 and Tobacco abuse counseling Z71.6 [place] [address] [place] [id number] [place] [phone] Feb, [place] [address] [place] [id number] [address] [place] [phone] Jan, [place] [address] [place] [id number] [place] [phone] Jan, [facility] [address] [place] [id number] [address] [place] [id number] Dec, [facility] [address] [place] [id number] [place] [id number] Dec, Degenerative disc disease, l umbar M51.36 ; Restless leg syndrome G25.81 ; Migraines G43.909 ; HTN (hypertension) I10 ; Fibromyalgia M79.7 and Other fdc (current) drug therapy Z79.899 [facility] [address] [facility] [place] [id number] [address] [place] [phone] Dec, [facility] [address] [facility] [place] [id number] [address] [place] [id number] Nov, [facility] [address] [facility] [place] [id number] [address] [place] [phone] Nov, [facility] [address] [id number] [address] [place] [phone] Oct, [facility] [address] [facility] [place] [id number] [address] [place] [phone] Oct, [facility] [address] [facility] [place] [id number] [address] [place] [id number] Oct, [facility] [address] [facility] [place] [id number] [address] [place] [phone] Sep, [facility] [address] [facility] [place] [id number] [address] [place] [address] Sep, Routine gynecological examin ation V72.31 ; Degenerative disc disease, lumbar M51.36 ; Fibromyalgia M79.7 ; Restless leg syndrome G25.81 ; Migraines G43.909 and Well woman exam Z01.419 [facility] [address] [facility] [place] [id number] [address] [place] [phone] Sep, [facility] [address] [facility] [place] [id number] [address] [place] [id number] Aug, [facility] [address] [facility] [place] [id number] [address] [place] [address] Aug, Migraines G43.909 ; Degenera tive disc disease, lumbar M51.36 ; Fibromyalgia M79.7 ; Restless leg syndrome G25.81 and HTN (hypertension) I10 [facility] [address] [place] [id number] [address] [place] [id number] Aug, [facility] [address] [facility] [place] [id number] [address] [place] [phone] Aug, [facility] [address] [facility] [place] [id number] [address] [place] [id number] Jul, [facility] [address] [facility] [place] [id number] [address] [place] [id number] Jul, [facility] [address] [facility] [place] [id number] [address] [place] [address] Jun, Fibromyalgia 729.1 ; Lumbago 724.2 ; Restless leg syndrome 333.94 ; Migraines 346.90 and Elevated blood pressure (not hypertension) 796.2 [facility] [address] [facility] [place] [id number] [address] [place] [address] May, Fibromyalgia 729.1 ; Nontoxi c uninodular goiter 241.0 ; Lumbago 724.2 ; Restless leg syndrome 333.94 and Migraines 346.90 [facility] [address] [facility] [place] [id number] [address] [place] [id number] Feb, [facility] [address] [facility] [place] [id number] [address] [place] [phone] Feb, [facility] [address] [facility] [place] [id number] [address] [place] [phone] Jan, [facility] [address] [facility] [place] [id number] [address] [place] [phone] Jan, [facility] [address] [facility] [place] [id number] [address] [place] [phone] Jan, [facility] [address] [facility] [place] [id number] [address] [place] [phone] Jan, [facility] [address] [facility] [place] [id number] [address] [place] [phone] Jan, [facility] [address] [facility] [place] [id number] [address] [place] [phone] Jan, [facility] [address] [id number] [address] [place] [phone] Jan, [facility] [address] [id number] [address] [place] [phone] Jan, 2014 [facility] [address] [id number] [address] [place] [phone] Dec, 2014 [facility] [address] [id number] [address] [place] [phone] Dec, 2014 [facility] [address] [id number] [address] [place] [phone] Dec, 2014 [facility] [address] [id number] [address] [place] [phone] Dec, 2014 [facility] [address] [id number] [address] [place] [phone] Dec, 2014 [facility] [address] [id number] [address] [place] [phone] Dec, 2014 [facility] [address] [id number] [address] [place] [phone] Dec, 2014 [facility] [address] [id number] [address] [place] [phone] Dec, 2014 [facility] [address] [id number] [address] [place] [phone] Dec, 2014 [facility] [address] [id number] [address] [place] [phone] Dec, 2014 [facility] [address] [id number] [address] [place] [id number] Dec, [facility] [address] [id number] [address] [place] [phone] Nov, [facility] [address] [id number] [address] [place] [phone] Nov, IMMUNIZATIONS No Known Immunizations SOCIAL HISTORY Never Assessed REASON FOR VISIT Hydrocodone refill PLAN OF CARE VITAL SIGNS MEDICATIONS Medication Instructions Dosage Frequency Start Date End Date Duration Que anders Hydrocodone-Acetaminophen 10-325 MG Orally every 6 hrs 1 tablet as needed 6h Aug, 28 days Active RESULTS No Results PROCEDURES [...] History surgery Hospitalization History childbirth Hospitalization History [facility]
--- OUTSIDE RECORDS SUMMARY | 2020-02-04 15:02 | XMS REPORT ---
Author Author Caitie QUARLES Organization [facility] Address [address] [place] [address] Care Team Providers Care [employer] Name Role Phone QUARLESSONYA Lamas Unavailable PROBLEMS Type Condition ICD9-CM Code WRO14-JF Code Onset Dates Condition S tatus SNOMED Code Problem Anxiety F41.9 Active 00676064 Problem OAB (overactive bladder) N32.81 Activ e 764925950 Problem Muscle spasms of both lower extremities M62.838 Active 909174227 Problem Chronic tension-type headache, intractable G44.221 Active 876310920 Problem Overweight (BMI 25.0-29.9) E66.3 Act ramana 180725643 Problem Chronic, continuous use of opioids F11.90 Active 128502018 Problem Chronic pain disorder G89.4 Active 557699447 Problem Type 2 diabetes mellitus wit h diabetic polyneuropathy, without long-term current use of insulin E11.42 Active 72849 006 Problem Type 2 diabetes mellitus wit h hyperglycemia, without long-term current use of insulin E11.65 Active 71419914 Problem Vitamin D deficiency E55.9 Active 70098821 Problem Fibromyalgia M79.7 Active 8248067 7 Problem HTN (hypertension) I10 Active 3 0306102 Problem Restless leg syndrome G25.81 Active 97053281 Problem Migraines G43.909 Active 07166226 Problem Degenerative disc disease, lumbar M51.36 Active 71675417 Problem Hyperlipemia E78.5 Active 0984598 4 ALLERGIES No Information ENCOUNTERS Encounter Location Date Diagnosis [facility] [address] [facility] [id number] [address] [place] [id number] 13 Jul, 2018 [facility] [id number] [place] [phone] May, Chronic pain disorder G89.4 [facility] [address] [facility] [id number] [address] [place] [phone] May, Chronic pain disorder G89.4 [facility] [address] [facility] [id number] [address] [place] [id number] Apr, Chronic pain disorder G89.4 [facility] [address] [place] [id number] [address] [place] [phone] Apr, Type 2 diabetes mellitus wit h diabetic polyneuropathy, without long-term current use of insulin E11.42 ; HTN (hypertension) I10 ; Hyperlipemia E78.5 ; Fibromyalgia M79.7 ; Degenerative disc disease, lumbar M51.36 ; Chronic pain disorder G89.4 ; Chronic, continuous use of opioids F11.90 ; Vitamin D deficiency E55.9 ; Anxiety F41.9 ; Chronic tension-type headache, intractable G44.221 and Overweight (BMI 25.0-29.9) E66.3 [place] [address] [address] March, Chronic pain disorder G89.4 [place] [address] [place] [id number] [address] [place] [id number] March, Type 2 diabetes mellitus wit h diabetic polyneuropathy, without long-term current use of insulin E11.42 [place] [address] [place] [id number] [address] [place] [phone] Feb, Chronic pain disorder G89.4 [place] [address] [place] [phone] Jan, [place] [address] [address] Jan, Pharyngitis, unspecified vashti ology J02.9 ; Fibromyalgia M79.7 and Chronic pain disorder G89.4 [place] [address] [place] [id number] [address] [place] [id number] Jan, [place] [address] [place] [id number] [address] [place] [phone] Jan, [place] [address] [address] Jan, [place] [address] [address] Jan, Type 2 diabetes mellitus wit h diabetic polyneuropathy, without long-term current use of insulin E11.42 ; Type 2 diabetes mellitus with hyperglycemia, without long-term current use of insulin E11.65 ; Degenerative disc disease, lumbar M51.36 ; Fibromyalgia M79.7 ; Restless leg syndrome G25.81 ; HTN (hypertension) I10 ; Hyperlipemia E78.5 ; Anxiety F41.9 ; Migraines G43.909 and High risk medication use Z79.[address] [address] Dec, Chronic pain disorder G89.[address] [address] Nov, Chronic pain disorder G89.[address] [address] Nov, [address] [address] Nov, Type 2 diabetes mellitus wit h hyperglycemia, without long-term current use of insulin E11.65 ; HTN (hypertension) I10 ; Hyperlipemia E78.5 ; Restless leg syndrome G25.81 ; Fibromyalgia M79.7 ; Chronic tension-type headache, intractable G44.221 ; Migraines G43.909 ; Chronic pain disorder G89.4 and Overweight (BMI 25.0-29.9) E66.[address] [address] Nov, [address] [address] Oct, Degenerative disc disease, l umbar M51.[address] [address] Sep, Degenerative disc disease, l umbar M51.36 [facility] [address] [place] [id number] [address] [place] [phone] Sep, [place] [address] [facility] [id number] [address] [place] [phone] Aug, Degenerative disc disease, l umbar M51.36 [place] [address] [place] [id number] [address] [place] [id number] Aug, Fall from height of greater than 3 feet W19.XXXA ; Hematoma of left hip, subsequent encounter S70.02XD ; Fibromyalgia M79.7 ; Muscle spasms of both lower extremities M62.838 ; Anxiety F41.9 ; Degenerative disc disease, lumbar M51.36 ; Chronic pain disorder G89.4 and Chronic, continuous use of opioids F11.90 [place] [address] [place] [id number] [address] [place] [id number] Jul, [place] [address] [place] [id number] [address] [place] [id number] Jul, Degenerative disc disease, l umbar M51.36 [place] [address] [place] [id number] [address] [place] [phone] Jun, Degenerative disc disease, l umbar M51.36 [place] [address] [place] [id number] [address] [place] [id number] May, Degenerative disc disease, l umbar M51.36 [place] [address] [place] [id number] [address] [place] [id number] May, [place] [address] [facility] [id number] [address] [place] [id number] Apr, Degenerative disc disease, l umbar M51.36 [place] [address] [place] [id number] [address] [place] [phone] Apr, Degenerative disc disease, l umbar M51.36 [place] [address] [place] [id number] [address] [place] [id number] March, Degenerative disc disease, l umbar M51.36 and Fall (on) (from) other stairs and steps, initial encounter W10.8XXA [facility] [address] [id number] [address] [place] [phone] March, [facility] [address] [id number] [address] [place] [id number] March, [facility] [address] [id number] [address] [place] [phone] March, [facility] [address] [id number] [address] [place] [phone] March, [facility] [address] [facility] [id number] [address] [place] [address] Feb, [facility] [address] [facility] [id number] [address] [place] [phone] Jan, Fibromyalgia M79.7 [facility] [address] [facility] [id number] [address] [place] [phone] Jan, [facility] [address] [facility] [id number] [address] [place] [phone] Dec, Degenerative disc disease, l umbar M51.36 [facility] [address] [facility] [id number] [address] [place] [id number] Dec, [facility] [address] [facility] [id number] [address] [place] [id number] Nov, Degenerative disc disease, l umbar M51.36 ; Fibromyalgia M79.7 ; Restless leg syndrome G25.81 ; HTN (hypertension) I10 ; Hyperlipemia E78.5 ; Chronic tension-type headache, intractable G44.221 and OAB (overactive bladder) N32.81 [facility] [address] [facility] [id number] [address] [place] [phone] Nov, [facility] [address] [place] [id number] [address] [place] [phone] Oct, [facility] [address] [facility] [id number] [address] [place] [phone] Oct, [facility] [address] [id number] [id number] Oct, [facility] [address] [facility] [id number] [address] [place] [phone] Sep, [facility] [address] [facility] [id number] [address] [place] [phone] Aug, [facility] [address] [id number] [address] [place] [id number] Aug, [facility] [address] [facility] [id number] [address] [place] [id number] Aug, Degenerative disc disease, l umbar M51.36 [facility] [address] [facility] [id number] [address] [place] [address] Aug, Degenerative disc disease, l umbar M51.36 ; Fibromyalgia M79.7 ; Migraines G43.909 ; Hyperlipemia E78.5 ; Muscle spasms of both lower extremities M62.838 ; Chronic tension-type headache, intractable G44.221 ; HTN (hypertension) I10 and Restless leg syndrome G25.81 [facility] [address] [id number] [address] [place] [phone] Jul, [facility] [address] [facility] [id number] [address] [place] [phone] Jul, [facility] [address] [id number] [address] [place] [id number] Jul, [facility] [address] [facility] [id number] [address] [place] [id number] Jun, Chronic tension-type headach e, intractable G44.221 ; Muscle spasms of both lower extremities M62.838 ; Fibromyalgia M79.7 ; Degenerative disc disease, lumbar M51.36 ; Restless leg syndrome G25.81 ; Migraines G43.909 ; Hyperlipemia E78.5 and Anxiety F41.9 [facility] [address] [facility] [id number] [address] [place] [phone] Jun, [facility] [address] [facility] [id number] [address] [place] [phone] Jun, [facility] [address] [facility] [id number] [address] [place] [phone] Jun, [facility] [address] [facility] [id number] [address] [place] [id number] Jun, [facility] [address] [facility] [id number] [address] [place] [phone] May, Sebaceous cyst L72.3 [facility] [address] [facility] [id number] [address] [place] [id number] May, Low back pain M54.5 [facility] [address] [facility] [id number] [address] [place] [id number] Apr, [facility] [address] [facility] [id number] [address] [place] [phone] Apr, Fibromyalgia M79.7 [facility] [address] [facility] [id number] [address] [place] [id number] Apr, Degenerative disc disease, l umbar M51.36 ; Fibromyalgia M79.7 ; Migraines G43.909 ; Hyperlipemia E78.5 ; Restless leg syndrome G25.81 ; Other intractable trigeminal autonomic cephalgia (TAC) G44.091 ; Secondary hypertension I15.9 and Anxiety F41.9 [facility] [address] [facility] [id number] [address] [place] [address] March, Other long term acute care registered nurse (current) dr amie potter Z79.899 and HTN (hypertension) I10 [facility] [address] [facility] [id number] [address] [place] [phone] March, Fibromyalgia M79.7 [facility] [address] [facility] [id number] [address] [place] [id number] Feb, [facility] [address] [facility] [id number] [address] [place] [phone] Feb, [facility] [address] [place] [id number] [address] [place] [id number] Feb, [facility] [address] [place] [id number] [address] [place] [phone] Feb, Hyperlipemia E78.5 [facility] [address] [place] [id number] [address] [place] [id number] Feb, Migraines G43.909 ; Fibromya lgia M79.7 ; Degenerative disc disease, lumbar M51.36 ; Restless leg syndrome G25.81 ; HTN (hypertension) I10 and Tobacco abuse counseling Z71.6 [facility] [address] [place] [id number] [place] [phone] Feb, [facility] [address] [place] [id number] [address] [place] [phone] Jan, [facility] [address] [place] [id number] [address] [place] [phone] Jan, [facility] [address] [place] [id number] [place] [address] Dec, [facility] [address] [place] [id number] [address] [place] [id number] Dec, HTN (hypertension) I10 ; Deg enerative disc disease, lumbar M51.36 ; Restless leg syndrome G25.81 ; Migraines G43.909 ; Fibromyalgia M79.7 and Other custodial (current) drug therapy Z79.899 [facility] [address] [place] [id number] [address] [place] [id number] Dec, [facility] [address] [place] [id number] [address] [place] [id number] Nov, [facility] [address] [place] [id number] [address] [place] [phone] Nov, [facility] [address] [facility] [id number] [address] [place] [phone] Oct, [facility] [address] [facility] [id number] [address] [place] [phone] Oct, [facility] [address] [facility] [id number] [address] [place] [phone] Oct, [facility] [address] [facility] [id number] [address] [place] [phone] Sep, [facility] [address] [facility] [id number] [address] [place] [address] Sep, Routine gynecological examin ation V72.31 ; Degenerative disc disease, lumbar M51.36 ; Fibromyalgia M79.7 ; Restless leg syndrome G25.81 ; Migraines G43.909 and Well woman exam Z01.419 [facility] [address] [facility] [id number] [address] [place] [phone] Sep, [facility] [address] [facility] [id number] [address] [place] [id number] Aug, [facility] [address] [facility] [id number] [address] [place] [id number] Aug, Migraines G43.909 ; Degenera tive disc disease, lumbar M51.36 ; Fibromyalgia M79.7 ; Restless leg syndrome G25.81 and HTN (hypertension) I10 [facility] [address] [facility] [id number] [address] [place] [id number] Aug, [facility] [address] [facility] [id number] [address] [place] [phone] Aug, [facility] [address] [facility] [id number] [address] [place] [id number] Jul, [facility] [address] [facility] [id number] [address] [place] [id number] Jul, [facility] [address] [place] [id number] [address] [place] [id number] Jun, Fibromyalgia 729.1 ; Lumbago 724.2 ; Restless leg syndrome 333.94 ; Migraines 346.90 and Elevated blood pressure (not hypertension) 796.2 [facility] [address] [id number] [address] [place] [id number] May, Fibromyalgia 729.1 ; Nontoxi c uninodular goiter 241.0 ; Lumbago 724.2 ; Restless leg syndrome 333.94 and Migraines 346.90 [facility] [address] [id number] [address] [place] [phone] Feb, [facility] [address] [id number] [address] [place] [phone] Feb, [facility] [address] [id number] [address] [place] [phone] Jan, [facility] [address] [id number] [address] [place] [phone] Jan, [facility] [address] [id number] [address] [place] [phone] Jan, [facility] [address] [facility] [id number] [address] [place] [phone] Jan, [facility] [address] [id number] [address] [place] [phone] Jan, [facility] [address] [id number] [address] [place] [phone] Jan, [facility] [address] [id number] [address] [place] [id number] Jan, [facility] [address] [id number] [address] [place] [phone] Jan, [facility] [address] [id number] [address] [place] [phone] Dec, [facility] [address] [id number] [address] [place] [phone] Dec, [facility] [address] [id number] [address] [place] [phone] Dec, [facility] [address] [id number] [address] [place] [phone] Dec, [facility] [address] [id number] [address] [place] [phone] Dec, [facility] [address] [id number] [address] [place] [phone] Dec, [facility] [address] [id number] [address] [place] [phone] Dec, [facility] [address] [id number] [address] [place] [phone] Dec, [facility] [address] [id number] [address] [place] [phone] Dec, [facility] [address] [id number] [address] [place] [phone] Dec, [facility] [address] [id number] [address] [place] [phone] Dec, [facility] [address] [id number] [address] [place] [phone] Nov, [facility] [address] [id number] [address] [place] [phone] Nov, IMMUNIZATIONS No Known Immunizations SOCIAL HISTORY Never Assessed REASON FOR VISIT question PLAN OF CARE VITAL SIGNS MEDICATIONS Unknown [...] History surgery Hospitalization History childbirth Hospitalization History [facility] ER for migraine
--- OUTSIDE RECORDS SUMMARY | 2020-02-04 15:02 | XMS REPORT ---
Author Caitie Otero [facility] eClinical[employer] Address Unknown Phone Unavailable Care Team Providers Care Shed Workers Supervisor Name Role Phone CARMELITA ALLEN CP Unavailable Allergies No Known Allergies Problems Problem Type Condition Code Onset Dates Condition Statu s Problem Well woman exam Z01.419 Active Problem Migraines G43.909 Active Problem HTN (hypertension) I10 Active Assessment Degenerative disc disease, lumbar M51.36 Active Problem Muscle spasms of both lower extremities M62.838 Active Problem Anxiety F41.9 Active Problem Chronic tension-type headache, intractable G44.221 Active Problem Fibromyalgia M79.7 Active Problem Restless leg syndrome G25.81 Active Problem Hyperlipemia E78.5 Active Problem Degenerative disc disease, lumbar M51.36 Active Medications Medication Code System Code Instructions Start Date End Date Status Dosage Hydrocodone-Acetaminophen [facility] [address]-65 7.5-325 MG Ora lly 3 times a day Jul 06, 2015 1 tablet as needed Results No Known Results Summary Purpose eClinicalWorks Submission
--- OUTSIDE RECORDS SUMMARY | 2020-02-04 15:03 | XMS REPORT ---
Author Caitie Otero [facility] eClinical[employer] Address Unknown Phone Unavailable Care Team Providers Care Handle Attacher Name Role Phone CARMELITA ALLEN CP Unavailable Allergies, Adverse Reactions, Alerts Substance Reaction Event Type Amoxicillin hives Drug Allergy Problems Problem Type Condition Code Onset Dates Condition Statu s Assessment HTN (hypertension) I10 Active Assessment Fibromyalgia M79.7 Active Assessment Restless leg syndrome G25.81 Active Problem Fibromyalgia M79.7 Active Problem Restless leg syndrome G25.81 Active Problem Degenerative disc disease, lumbar M51.36 Active Assessment Migraines G43.909 Active Assessment Degenerative disc disease, lumbar M51.36 Active Problem Migraines G43.909 Active Problem HTN (hypertension) I10 Active Medications Medication Code System Code Instructions Start Date End Date Status Dosage Gabapentin [facility] [address]-30 400 MG Three times a day Jan 04, 2015 1 capsule by Oral route 3 times per day for back pain Imitrex [facility] [address]-40 100 mg Jan 04, 2015 1 ta blet by Oral route 1 time per day and repeat once more after 2 hours if headache recurs PRN for bad headaches. Hydrocodone-Acetaminophen [facility] [address]-03 7.5-325 MG Ora lly 3 times a day Jul 06, 2015 1 tablet as needed Flexeril ND 0 1 3 times a day tid Requip [facility] [address]-37 2 MG Orally Once a day June 17, 2015 1 tablet 1 to 3 hours before bedtime Meloxicam [facility] [address]-54 15 MG Once a day TAKE ONE TABLET BY MOUTH DAILY Topamax [facility] [address]-69 50 mg Jan 04, 2015 1 Tab let by Po route 1 time per day for headache daily med Procedures Procedure Coding System Code Date TORADOL (IM) 60 MG/2ML (UP TO 15 MG) CPT-4 J1885 Sep 20, 2015 THER/PROPH/DIAG INJ, SC/IM CPT-4 06401 Aug 262014 Office Visit, Est Pt., Level 4 CPT-[address] 2014 Vital Signs Date/Time: Sep 20, 2015 Temperature 98.6 F Weight 155.6 lbs Height 63 in BMI 27.56 Index Blood Pressure Diastolic 84 mmHg Blood Pressure Systolic 138 mmHg Cardiac Monitoring Heart Rate 106 bpm Results No Known Results Summary Purpose eClinicalWorks Submission
--- OUTSIDE RECORDS SUMMARY | 2020-02-04 15:03 | XMS REPORT ---
Author Caitie Otero [facility] e[employer] Address Unknown Phone Unavailable Care Team Providers Care Wholesale Manager Name Role Phone CARMELITA ALLEN CP Unavailable Allergies No Known Allergies Problems Problem Type Condition Code Onset Dates Condition Statu s Problem Degenerative disc disease, lumbar M51.36 Active Problem Fibromyalgia M79.7 Active Problem Hyperlipemia E78.5 Active Problem HTN (hypertension) I10 Active Problem Well woman exam Z01.419 Active Problem Restless leg syndrome G25.81 Active Problem Migraines G43.909 Active Medications No Known Medications Results No Known Results Summary Purpose eClinicalWorks Submission
--- OUTSIDE RECORDS SUMMARY | 2020-02-04 15:03 | XMS REPORT ---
Author Author Caitie Albert Organization [facility] Address [address] [place] [address] Care Team Providers Care Oil Developer Name Role Phone Roosevelt CARMELITA Unavailable PROBLEMS Type Condition ICD9-CM Code PVG33-PK Code Onset Dates Condition S tatus SNOMED Code Problem Migraines G43.909 Active 16774937 Problem Anxiety F41.9 Active 22411375 Problem Hyperlipemia E78.5 Active 7987121 4 Problem Type 2 diabetes mellitus wit h diabetic polyneuropathy, without long-term current use of insulin E11.42 Active 50035 006 Problem Type 2 diabetes mellitus wit h hyperglycemia, without long-term current use of insulin E11.65 Active 68479463 Problem OAB (overactive bladder) N32.81 Activ e 699872514 Problem Muscle spasms of both lower extremities M62.838 Active 098441706 Problem Chronic, continuous use of opioids F11.90 Active 362371904 Problem Chronic pain disorder G89.4 Active 243953812 Problem Fibromyalgia M79.7 Active 0761144 7 Problem Restless leg syndrome G25.81 Active 48937866 Problem Degenerative disc disease, lumbar M51.36 Active 68580895 Problem Vitamin D deficiency E55.9 Active 27600073 Problem HTN (hypertension) I10 Active 3 0952225 ALLERGIES No Information ENCOUNTERS Encounter Location Date Diagnosis [facility] [address] [facility] [id number] [address] [place] [address] Apr, [facility] [address] [facility] [id number] [address] [place] [address] Feb, [facility] [address] [facility] [id number] [address] [place] [address] Jan, [facility] [address] [facility] [id number] [address] [place] [address] Jan, Pharyngitis, unspecified vashti ology J02.9 ; Fibromyalgia M79.7 and Chronic pain disorder G89.4 [place] [address] [address] Jan, [place] [address] [address] Jan, [place] [address] [address] Jan, [place] [address] [address] Jan, Type 2 diabetes mellitus wit h diabetic polyneuropathy, without long-term current use of insulin E11.42 ; Type 2 diabetes mellitus with hyperglycemia, without long-term current use of insulin E11.65 ; Degenerative disc disease, lumbar M51.36 ; Fibromyalgia M79.7 ; Restless leg syndrome G25.81 ; HTN (hypertension) I10 ; Hyperlipemia E78.5 ; Anxiety F41.9 ; Migraines G43.909 and High risk medication use Z79.899 [place] [address] [address] Dec, Chronic pain disorder G89.4 [place] [address] [place] [id number] [address] [place] [address] Nov, Chronic pain disorder G89.4 [place] [address] [place] [id number] [address] [place] [address] Nov, [place] [address] [place] [id number] [address] [place] [address] Nov, Type 2 diabetes mellitus wit h hyperglycemia, without long-term current use of insulin E11.65 ; HTN (hypertension) I10 ; Hyperlipemia E78.5 ; Restless leg syndrome G25.81 ; Fibromyalgia M79.7 ; Chronic tension-type headache, intractable G44.221 ; Migraines G43.909 ; Chronic pain disorder G89.4 and Overweight (BMI 25.0-29.9) E66.3 [facility] [address] [place] [id number] [address] [place] [address] Nov, [facility] [address] [place] [id number] [place] [address] Oct, Degenerative disc disease, l umbar M51.36 [place] [address] [place] [id number] [place] [address] Sep, Degenerative disc disease, l umbar M51.36 [place] [address] [place] [id number] [place] [address] Sep, [place] [address] [address] Aug, Degenerative disc disease, l umbar M51.36 [place] [address] [address] Aug, Fall from height of greater than 3 feet W19.XXXA ; Hematoma of left hip, subsequent encounter S70.02XD ; Fibromyalgia M79.7 ; Muscle spasms of both lower extremities M62.838 ; Anxiety F41.9 ; Degenerative disc disease, lumbar M51.36 ; Chronic pain disorder G89.4 and Chronic, continuous use of opioids F11.90 [place] [address] [address] Jul, [place] [address] [address] Jul, Degenerative disc disease, l umbar M51.36 [place] [address] [place] [id number] [address] [place] [address] Jun, Degenerative disc disease, l umbar M51.36 [place] [address] [place] [id number] [address] [place] [address] May, Degenerative disc disease, l umbar M51.36 [place] [address] [place] [id number] [address] [place] [address] May, [facility] [address] [id number] [address] [place] [address] Apr, Degenerative disc disease, l umbar M51.36 [facility] [address] [id number] [address] [place] [address] Apr, Degenerative disc disease, l umbar M51.36 [facility] [address] [id number] [address] [place] [address] March, Degenerative disc disease, l umbar M51.36 and Fall (on) (from) other stairs and steps, initial encounter W10.8XXA [facility] [address] [id number] [address] [place] [address] March, [facility] [address] [id number] [address] [place] [address] March, [facility] [address] [id number] [address] [place] [address] March, [facility] [address] [id number] [address] [place] [address] March, [facility] [address] [id number] [address] [place] [address] Feb, [facility] [address] [id number] [address] [place] [address] Jan, Fibromyalgia M79.7 [facility] [address] [id number] [address] [place] [address] Jan, [facility] [address] [id number] [address] [place] [address] Dec, Degenerative disc disease, l umbar M51.36 [facility] [address] [id number] [address] [place] [address] Dec, [facility] [address] [id number] [address] [place] [address] Nov, Degenerative disc disease, l umbar M51.36 ; Fibromyalgia M79.7 ; Restless leg syndrome G25.81 ; HTN (hypertension) I10 ; Hyperlipemia E78.5 ; Chronic tension-type headache, intractable G44.221 and OAB (overactive bladder) N32.81 [facility] [address] [facility] [id number] [address] [place] [address] Nov, [facility] [address] [facility] [id number] [address] [place] [address] Oct, [facility] [address] [facility] [id number] [address] [place] [address] Oct, [facility] [address] [id number] [place] [id number] Oct, [facility] [address] [facility] [id number] [address] [place] [address] Sep, [facility] [address] [facility] [id number] [address] [place] [address] Aug, [facility] [address] [facility] [id number] [address] [place] [address] Aug, [facility] [address] [facility] [id number] [address] [place] [address] Aug, Degenerative disc disease, l umbar M51.36 [facility] [address] [facility] [id number] [address] [place] [address] Aug, Degenerative disc disease, l umbar M51.36 ; Fibromyalgia M79.7 ; Migraines G43.909 ; Hyperlipemia E78.5 ; Muscle spasms of both lower extremities M62.838 ; Chronic tension-type headache, intractable G44.221 ; HTN (hypertension) I10 and Restless leg syndrome G25.81 [facility] [address] [facility] [id number] [address] [place] [address] Jul, [facility] [address] [facility] [id number] [address] [place] [address] Jul, [facility] [address] [facility] [id number] [address] [place] [address] Jul, [facility] [address] [facility] [id number] [address] [place] [address] Jun, Chronic tension-type headach e, intractable G44.221 ; Muscle spasms of both lower extremities M62.838 ; Fibromyalgia M79.7 ; Degenerative disc disease, lumbar M51.36 ; Restless leg syndrome G25.81 ; Migraines G43.909 ; Hyperlipemia E78.[address] [facility] [address] [facility] [id number] [address] [place] [address] Jun, [facility] [address] [facility] [id number] [address] [place] [address] Jun, [facility] [address] [place] [id number] [place] [address] Jun, [facility] [address] [place] [id number] [address] [place] [address] Jun, [facility] [address] [place] [id number] [address] [place] [address] May, Sebaceous cyst L72.3 [facility] [address] [facility] [id number] [address] [place] [address] May, Low back pain M54.5 [facility] [address] [place] [id number] [address] [place] [address] Apr, [facility] [address] [place] [id number] [address] [place] [address] Apr, Fibromyalgia M79.7 [facility] [address] [place] [id number] [address] [place] [address] Apr, Degenerative disc disease, l umbar M51.36 ; Fibromyalgia M79.7 ; Migraines G43.909 ; Hyperlipemia E78.5 ; Restless leg syndrome G25.81 ; Other intractable trigeminal autonomic cephalgia (TAC) G44.091 ; Secondary hypertension I15.[address] [facility] [address] [place] [id number] [address] [place] [address] March, Other exterminator (current) dr amie therapy Z79.899 and HTN (hypertension) I10 [facility] [address] [place] [id number] [address] [place] [address] March, Fibromyalgia M79.7 [facility] [address] [place] [id number] [place] [address] Feb, [facility] [address] [place] [id number] [place] [address] Feb, [place] [address] [address] Feb, [place] [address] [address] Feb, Hyperlipemia E78.5 [place] [address] [address] Feb, Migraines G43.909 ; Fibromya lgia M79.7 ; Degenerative disc disease, lumbar M51.36 ; Restless leg syndrome G25.81 ; HTN (hypertension) I10 and Tobacco abuse counseling Z71.6 [place] [address] [place] [id number] [address] [place] [address] Feb, [place] [id number] [place] [address] Jan, [place] [address] [place] [id number] [address] [place] [address] Jan, [place] [address] [address] Dec, [place] [address] [place] [id number] [address] [place] [address] Dec, Degenerative disc disease, l umbar M51.36 ; Restless leg syndrome G25.81 ; Migraines G43.909 ; HTN (hypertension) I10 ; Fibromyalgia M79.7 and Other intermediate (current) drug therapy Z79.899 [facility] [address] [facility] [id number] [address] [place] [address] Dec, [facility] [address] [id number] [address] [place] [address] Nov, [facility] [address] [facility] [id number] [address] [place] [address] Nov, [facility] [address] [id number] [address] [place] [address] Oct, [facility] [address] [facility] [id number] [address] [place] [address] Oct, [facility] [address] [facility] [id number] [address] [place] [address] Oct, [facility] [address] [facility] [id number] [address] [place] [address] Sep, [facility] [address] [facility] [id number] [address] [place] [address] Sep, Routine gynecological examin ation V72.31 ; Degenerative disc disease, lumbar M51.36 ; Fibromyalgia M79.7 ; Restless leg syndrome G25.81 ; Migraines G43.909 and Well woman exam Z01.419 [facility] [address] [facility] [id number] [address] [place] [address] Sep, [facility] [address] [facility] [id number] [address] [place] [address] Aug, [facility] [address] [facility] [id number] [address] [place] [address] Aug, Migraines G43.909 ; Degenera tive disc disease, lumbar M51.36 ; Fibromyalgia M79.7 ; Restless leg syndrome G25.81 and HTN (hypertension) I10 [facility] [address] [facility] [id number] [address] [place] [address] Aug, [facility] [address] [facility] [id number] [address] [place] [address] Aug, [facility] [address] [facility] [id number] [address] [place] [address] Jul, [facility] [address] [facility] [id number] [address] [place] [address] Jul, [facility] [address] [facility] [id number] [address] [place] [address] Jun, Fibromyalgia 729.1 ; Lumbago 724.2 ; Restless leg syndrome 333.94 ; Migraines 346.90 and Elevated blood pressure (not hypertension) 796.2 [facility] [address] [facility] [id number] [address] [place] [address] May, Fibromyalgia 729.1 ; Nontoxi c uninodular goiter 241.0 ; Lumbago 724.2 ; Restless leg syndrome 333.[address] [facility] [address] [facility] [id number] [address] [place] [address] Feb, [facility] [address] [facility] [id number] [address] [place] [address] Feb, [facility] [address] [facility] [id number] [address] [place] [address] Jan, [facility] [address] [facility] [id number] [address] [place] [address] Jan, [facility] [address] [facility] [id number] [address] [place] [address] Jan, [facility] [address] [facility] [id number] [address] [place] [address] Jan, [facility] [address] [facility] [id number] [address] [place] [address] Jan, [facility] [address] [facility] [id number] [address] [place] [address] Jan, [facility] [address] [id number] [address] [place] [address], [place] [address] Jan, [facility] [address] [id number] [address] [place] [address], [place] [address] Jan, [facility] [address] [id number] [address] [place] [address], [place] [address] Dec, 2014 [facility] [address] [id number] [address] [place] [address], [place] [address] Dec, 2014 [facility] [address] [id number] [address] [place] [address], [place] [address] Dec, 2014 [facility] [address] [id number] [address] [place] [address], [place] [address] Dec, 2014 [facility] [address] [id number] [address] [place] [address], [place] [address] Dec, 2014 [facility] [address] [id number] [address] [place] [address] Dec, 2014 [facility] [address] [id number] [address] [place] [address] Dec, 2014 [facility] [address] [id number] [address] [place] [address] Dec, 2014 [facility] [address] [id number] [address] [place] [address] Dec, [facility] [address] [id number] [address] [place] [address] Dec, [facility] [address] [id number] [address] [place] [address] Dec, [facility] [address] [id number] [address] [place] [address] Nov, [facility] [address] [id number] [address] [place] [address] Nov, IMMUNIZATIONS No Known Immunizations SOCIAL HISTORY Never Assessed REASON FOR VISIT Refill Request PLAN OF CARE VITAL SIGNS MEDICATIONS Medication Instructions Dosage Frequency Start Date End Date Duration S chago Gabapentin 400 mg TAKE ONE CAPSULE BY MOUTH THREE TIMES DAILY 30 Active RESULTS No Results PROCEDURES No Known [...]
--- OUTSIDE RECORDS SUMMARY | 2020-02-04 15:03 | XMS REPORT ---
Author Caitie Otero [facility] [employer] Address Unknown Phone Unavailable Care Team Providers Care Atomizer Assembler Name Role Phone CARMELITA ALLEN CP Unavailable Allergies No Known Allergies Problems Problem Type Condition Code Onset Dates Condition Statu s Problem Fibromyalgia M79.7 Active Problem Restless leg syndrome G25.81 Active Problem Degenerative disc disease, lumbar M51.36 Active Problem Well woman exam Z01.419 Active Problem Migraines G43.909 Active Problem HTN (hypertension) I10 Active Medications No Known Medications Results No Known Results Summary Purpose eClinicalWorks Submission
--- OUTSIDE RECORDS SUMMARY | 2020-02-04 15:03 | XMS REPORT ---
Author Author Caitie RON Organization [employer] Address Unknown Phone Unavailable Care Team Providers Care Economic Historian Name Role Phone MEENU RON CP Unavailable [...] Start Date End Date Status Dosage Hydrocodone-Acetaminophen [facility] [address]-90 7.5-325 MG Ora lly 3 times a day Jul 06, 2015 1 tablet as needed Results No Known Results Summary Purpose [employer]Clinical[employer] Submission
--- OUTSIDE RECORDS SUMMARY | 2020-02-04 15:03 | XMS REPORT ---
Author Caitie Otero Organization [employer] Address Unknown Phone Unavailable Care Team Providers Care Chainer Name Role Phone CARMELITA ALLEN CP Unavailable Allergies No Known Allergies Problems Problem Type Condition Code Onset Dates Condition Statu s Problem Well woman exam Z01.419 Active Assessment Low back pain M54.5 Active Problem Hyperlipemia E78.5 Active Problem Degenerative disc disease, lumbar M51.36 Active Problem Anxiety F41.9 Active Problem Migraines G43.909 Active Problem HTN (hypertension) I10 Active Problem Fibromyalgia M79.7 Active Problem Restless leg syndrome G25.81 Active Medications Medication Code System Code Instructions Start Date End Date Status Dosage Hydrocodone-Acetaminophen [facility] 2001 [address]-82 7.5-325 MG Ora lly 3 times a day Jul 06, 2015 1 tablet as needed Results No Known Results Summary Purpose [employer]Clinical[employer] Submission
--- OUTSIDE RECORDS SUMMARY | 2020-02-04 15:03 | XMS REPORT ---
Author Author Caitie ALLEN Organization [facility] Address [address] [place] [address] Care Team Providers Care Mattress Finisher Name Role Phone CARMELITA ALLEN Unavailable PROBLEMS Type Condition ICD9-CM Code [id number] Code Onset Dates Condition S tatus SNOMED Code Problem Restless leg syndrome G25.81 Active 18176015 Problem Hyperlipemia E78.5 Active 2626377 4 Problem Degenerative disc disease, lumbar M51.36 Active 01458190 Problem Well woman exam Z01.419 Active 3103 49113 Problem Migraines G43.909 Active 01540442 Problem Fibromyalgia M79.7 Active 2954035 7 Problem HTN (hypertension) I10 Active 3 4070355 Problem Chronic pain disorder G89.4 Active 642957228 Problem Chronic, continuous use of opioids F11.90 Active 715536822 Problem Chronic tension-type headache, intractable G44.221 Active 876459064 Problem Anxiety F41.9 Active 46477881 Problem OAB (overactive bladder) N32.81 Activ e 929108526 Problem Muscle spasms of both lower extremities M62.838 Active 340088346 ALLERGIES No Information SOCIAL HISTORY Never Assessed [...] History surgery Hospitalization History childbirth Hospitalization History [facility] ER for migraine
--- OUTSIDE RECORDS SUMMARY | 2020-02-04 15:03 | XMS REPORT ---
Author Author Caitie ALLEN Organization [employer] Address Unknown Phone Unavailable Care Team Providers Care Business Writer Name Role Phone CARMELITA ALLEN CP Unavailable Allergies No Known Allergies Problems Problem Type Condition Code Onset Dates Condition Statu s Problem Fibromyalgia 729.1 Active Problem Restless leg syndrome 333.94 Active Problem Elevated blood pressure (not hypertension) 796.2 Active Problem Lumbago 724.2 Active Problem Nontoxic uninodular goiter 241.0 A ctive Problem Migraines 346.90 Active Problem Displacement of lumbar intervertebral disc without mye lopathy 722.10 Active Medications No Known Medications Results No Known Results Summary Purpose eClinicalWorks Submission
--- OUTSIDE RECORDS SUMMARY | 2020-02-04 15:03 | XMS REPORT ---
Author Author Caitie ALLEN Organization [facility] Address [address] [place] [address] Care Team Providers Care Telecommunications Network Engineer Name Role Phone CARMELITA ALLEN Unavailable PROBLEMS Type Condition ICD9-CM Code [id number] Code Onset Dates Condition S tatus SNOMED Code Problem Restless leg syndrome G25.81 Active 27824222 Problem HTN (hypertension) I10 Active 3 7324110 Problem Degenerative disc disease, lumbar M51.36 Active 83392368 Problem Well woman exam Z01.419 Active 3103 94274 Problem Migraines G43.909 Active 92161292 Problem OAB (overactive bladder) N32.81 Activ e 431736925 Problem Muscle spasms of both lower extremities M62.838 Active 103300312 Problem Hyperlipemia E78.5 Active 9733812 4 Problem Fibromyalgia M79.7 Active 3790243 7 Problem Chronic tension-type headache, intractable G44.221 Active 117861941 Problem Anxiety F41.9 Active 02019796 ALLERGIES No Information SOCIAL HISTORY Never Assessed PLAN OF CARE VITAL SIGNS MEDICATIONS No Known Medications RESULTS No Results PROCEDURES No Known procedures IMMUNIZATIONS No Known Immunizations MEDICAL (GENERAL) HISTORY Type Description Date Medical History fibromyalgia Medical History degenerative disk disease Medical History degenerative arthritis Surgical History hysterectomy Surgical History several lymph nodes removed Surgical History tonsillectomy Surgical History tubal ligation Hospitalization History surgery Hospitalization History childbirth Hospitalization History [facility] ER for migraine
--- OUTSIDE RECORDS SUMMARY | 2020-02-04 15:03 | XMS REPORT ---
Author Author Caitie QUARLES Organization [facility] Address [address] [place] [address] Care Team Providers Care Double End Sewer Name Role Phone QUARLESSONYA Lamas Unavailable PROBLEMS Type Condition ICD9-CM Code BPW27-UR Code Onset Dates Condition S tatus SNOMED Code Problem Hyperlipemia E78.5 Active 9670134 4 Problem Muscle spasms of both lower extremities M62.838 Active 191352783 Problem Anxiety F41.9 Active 38762154 Problem Chronic tension-type headache, intractable G44.221 Active 411276241 Problem Type 2 diabetes mellitus wit h diabetic polyneuropathy, without long-term current use of insulin E11.42 Active 75996 006 Problem Chronic pain disorder G89.4 Active 351509803 Problem OAB (overactive bladder) N32.81 Activ e 644769532 Problem Type 2 diabetes mellitus wit h hyperglycemia, without long-term current use of insulin E11.65 Active 64880549 Problem Chronic, continuous use of opioids F11.90 Active 375811537 Problem Degenerative disc disease, lumbar M51.36 Active 38114295 Problem Fibromyalgia M79.7 Active 4758974 7 Problem Vitamin D deficiency E55.9 Active 23610860 Problem HTN (hypertension) I10 Active 3 2808744 Problem Restless leg syndrome G25.81 Active 29668304 Problem Migraines G43.909 Active 07588683 ALLERGIES Substance Reaction Event Type Date Status Amoxicillin hives Drug Allergy Nov, Active tape rash Non Drug Allergy Nov, Active ENCOUNTERS Encounter Location Date Diagnosis [facility] [address] [id number] [place] [address] Apr, Type 2 diabetes mellitus wit h diabetic polyneuropathy, without long-term current use of insulin E11.42 ; HTN (hypertension) I10 ; Hyperlipemia E78.5 ; Fibromyalgia M79.7 ; Degenerative disc disease, lumbar M51.36 ; Chronic pain disorder G89.4 ; Chronic, continuous use of opioids F11.90 ; Vitamin D deficiency E55.9 ; Anxiety F41.9 and Chronic tension-type headache, intractable G44.221 [place] [address] [place] [id number] [place] [address] March, Chronic pain disorder G89.4 [place] [address] [place] [id number] [address] [place] [address] March, Type 2 diabetes mellitus wit h diabetic polyneuropathy, without long-term current use of insulin E11.42 [place] [address] [place] [id number] [address] [place] [address] Feb, Chronic pain disorder G89.4 [place] [address] [place] [id number] [address] [place] [address] Jan, [place] [address] [address] Jan, Pharyngitis, unspecified vashti ology J02.9 ; Fibromyalgia M79.7 and Chronic pain disorder G89.4 [place] [address] [place] [id number] [address] [place] [address] Jan, [place] [address] [place] [id number] [address] [place] [address] Jan, [place] [address] [address] Jan, [place] [address] [address] Jan, Type 2 diabetes mellitus wit h [...] High risk medication use Z79.899 [place] [address] [address] Dec, Chronic pain disorder G89.4 [place] [address] [address] Nov, Chronic pain disorder G89.4 [place] [address] [address] Nov, [place] [address] [address] Nov, Type 2 diabetes mellitus wit h hyperglycemia, without long-term current use of insulin E11.65 ; HTN (hypertension) I10 ; Hyperlipemia E78.5 ; Restless leg syndrome G25.81 ; Fibromyalgia M79.7 ; Chronic tension-type headache, intractable G44.221 ; Migraines G43.909 ; Chronic pain disorder G89.4 and Overweight (BMI 25.0-29.9) E66.3 [place] [address] [address] Nov, [place] [address] [address] Oct, Degenerative disc disease, l umbar M51.36 [place] [address] [address] Sep, Degenerative disc disease, l umbar M51.36 [place] [address] [place] [id number] [place] [address] Sep, [place] [address] [address] Aug, Degenerative disc disease, l umbar M51.36 [place] [address] [place] [id number] [place] [address] Aug, Fall from height of greater than 3 feet W19.XXXA ; Hematoma of left hip, subsequent encounter S70.02XD ; Fibromyalgia M79.7 ; Muscle spasms of both lower extremities M62.838 ; Anxiety F41.9 ; Degenerative disc disease, lumbar M51.36 ; Chronic pain disorder G89.4 and Chronic, continuous use of opioids F11.90 [facility] [address] [place] [id number] [address] [place] [address] Jul, [place] [address] [place] [id number] [address] [place] [address] Jul, Degenerative disc disease, l umbar M51.36 [facility] [address] [place] [id number] [address] [place] [address] Jun, Degenerative disc disease, l umbar M51.36 [place] [address] [place] [id number] [place] [address] May, Degenerative disc disease, l umbar M51.36 [place] [address] [place] [id number] [place] [address] May, [place] [address] [place] [id number] [place] [address] Apr, Degenerative disc disease, l umbar M51.36 [place] [address] [place] [id number] [place] [address] Apr, Degenerative disc disease, l umbar M51.36 [place] [address] [place] [id number] [place] [address] March, Degenerative disc disease, l umbar M51.36 and Fall (on) (from) other stairs and steps, initial encounter W10.8XXA [place] [address] [place] [id number] [place] [address] March, [place] [address] [place] [id number] [place] [address] March, [place] [address] [place] [id number] [place] [address] March, [facility] [address] [place] [id number] [place] [address] March, [facility] [address] [id number] [address] [place] [address] Feb, [facility] [address] [id number] [address] [place] [address] Jan, Fibromyalgia M79.7 [facility] [address] [id number] [address] [place] [address] Jan, [facility] [address] [id number] [address] [place] [address] Dec, Degenerative disc disease, l umbar M51.36 [facility] [address] [id number] [address] [place] [address] Dec, [facility] [address] [id number] [address] [place] [address] Nov, Degenerative disc disease, l umbar M51.36 ; Fibromyalgia M79.7 ; Restless leg syndrome G25.81 ; HTN (hypertension) I10 ; Hyperlipemia E78.5 ; Chronic tension-type headache, intractable G44.221 and OAB (overactive bladder) N32.81 [facility] [address] [id number] [address] [place] [address] Nov, [facility] [address] [id number] [address] [place] [address] Oct, [facility] [address] [id number] [address] [place] [address] Oct, [place] [address] [id number] [id number] Oct, [facility] [address] [id number] [address] [place] [address] Sep, [facility] [address] [id number] [address] [place] [address] Aug, [facility] [address] [id number] [address] [place] [address] Aug, [facility] [address] [id number] [address] [place] [address] Aug, Degenerative disc disease, l umbar M51.36 [facility] [address] [id number] [address] [place] [address] Aug, Degenerative disc disease, l umbar M51.36 ; Fibromyalgia M79.7 ; Migraines G43.909 ; Hyperlipemia E78.5 ; Muscle spasms of both lower extremities M62.838 ; Chronic tension-type headache, intractable G44.221 ; HTN (hypertension) I10 and Restless leg syndrome G25.81 [facility] [address] [id number] [address] [place] [address] Jul, [facility] [address] [id number] [address] [place] [address] Jul, [facility] [address] [id number] [address] [place] [address] Jul, [facility] [address] [id number] [address] [place] [address] Jun, Chronic tension-type headach e, intractable G44.221 ; Muscle spasms of both lower extremities M62.838 ; Fibromyalgia M79.7 ; Degenerative disc disease, lumbar M51.36 ; Restless leg syndrome G25.81 ; Migraines G43.909 ; Hyperlipemia E78.5 and Anxiety F41.9 [facility] [address] [id number] [address] [place] [address] Jun, [facility] [address] [id number] [address] [place] [address] Jun, [facility] [address] [id number] [address] [place] [address] Jun, [facility] [address] [id number] [address] [place] [address] Jun, [facility] [address] [id number] [address] [place] [address] May, Sebaceous cyst L72.3 [facility] [address] [id number] [address] [place] [address] May, Low back pain M54.5 [facility] [address] [id number] [address] [place] [address] Apr, [facility] [address] [place] [id number] [place] [address] Apr, Fibromyalgia M79.7 [facility] [address] [place] [id number] [place] [address] Apr, Degenerative disc disease, l umbar M51.36 ; Fibromyalgia M79.7 ; Migraines G43.909 ; Hyperlipemia E78.5 ; Restless leg syndrome G25.81 ; Other intractable trigeminal autonomic cephalgia (TAC) G44.091 ; Secondary hypertension I15.9 and Anxiety F41.9 [facility] [address] [id number] March, Other fdc (current) dr amie potter Z79.899 and HTN (hypertension) I10 [facility] [address] [place] [id number] [place] [address] March, Fibromyalgia M79.7 [facility] [address] [place] [id number] [address] [place] [address] Feb, [facility] [address] [place] [id number] [address] [place] [address] Feb, [facility] [address] [id number] [address] [place] [address] Feb, [facility] [address] [place] [id number] [address] [place] [address] Feb, Hyperlipemia E78.5 [facility] [address] [place] [id number] [address] [place] [address] Feb, Migraines G43.909 ; Fibromya lgia M79.7 ; Degenerative disc disease, lumbar M51.36 ; Restless leg syndrome G25.81 ; HTN (hypertension) I10 and Tobacco abuse counseling Z71.6 [facility] [address] [id number] [address] [place] [address] Feb, [facility] [address] [place] [id number] [address] [place] [address] Jan, [facility] [address] [id number] [address] [place] [address] Jan, [facility] [address] [place] [id number] [address] [place] [address] Dec, [facility] [address] [place] [id number] [place] [address] Dec, Degenerative disc disease, l umbar M51.36 ; Restless leg syndrome G25.81 ; Migraines G43.909 ; HTN (hypertension) I10 ; Fibromyalgia M79.7 and Other fdc (current) drug therapy Z79.899 [facility] [address] [id number] [address] [place] [address] Dec, [facility] [address] [place] [id number] [address] [place] [address] Nov, [facility] [address] [place] [id number] [address] [place] [address] Nov, [facility] [address] [place] [id number] [address] [place] [address] Oct, [facility] [address] [id number] [address] [place] [address] Oct, [facility] [address] [id number] [address] [place] [address] Oct, [facility] [address] [id number] [address] [place] [address] Sep, [facility] [address] [place] [id number] [address] [place] [address] Sep, Routine gynecological examin ation V72.31 ; Degenerative disc disease, lumbar M51.36 ; Fibromyalgia M79.7 ; Restless leg syndrome G25.81 ; Migraines G43.909 and Well woman exam Z01.419 [facility] [address] [address] Sep, [facility] [address] [place] [id number] [place] [address] Aug, [place] [address] [place] [id number] [place] [address] Aug, Migraines G43.909 ; Degenera tive disc disease, lumbar M51.36 ; Fibromyalgia M79.7 ; Restless leg syndrome G25.81 and HTN (hypertension) I10 [place] [address] [address] Aug, [place] [address] [address] Aug, [place] [address] [address] Jul, [place] [address] [address] Jul, [place] [address] [place] [id number] [address] [place] [address] Jun, Fibromyalgia 729.1 ; Lumbago 724.2 ; Restless leg syndrome 333.94 ; Migraines 346.90 and Elevated blood pressure (not hypertension) 796.2 [place] [address] [place] [id number] [place] [address] May, Fibromyalgia 729.1 ; Nontoxi c uninodular goiter 241.0 ; Lumbago 724.2 ; Restless leg syndrome 333.94 and Migraines 346.90 [place] [address] [place] [id number] [address] [place] [address] 14 Feb, 2015 [facility] [address] [id number] [address] [place] [address], [place] [address] 13 Feb, 2015 [facility] [address] [id number] [address] [place] [address], [place] [address] 12 Jan, 2015 [facility] [address] [id number] [address] [place] [address], [place] [address] Jan, [facility] [address] [id number] [address] [place] [address], [place] [address] Jan, [facility] [address] [id number] [address] [place] [address], [place] [address] Jan, [facility] [address] [id number] [address] [place] [address], [place] [address] Jan, [facility] [address] [id number] [address] [place] [address], [place] [address] Jan, [facility] [address] [id number] [address] [place] [address], [place] [address] Jan, [facility] [address] [id number] [address] [place] [address], [place] [address] Jan, [facility] [address] [id number] [address] [place] [address], [place] [address] Dec, [facility] [address] [id number] [address] [place] [address], [place] [address] Dec, [facility] [address] [id number] [address] [place] [address], [place] [address] Dec, [facility] [address] [id number] [address] [place] [address], [place] [address] Dec, [facility] [address] [id number] [address] [place] [address], [place] [address] Dec, [facility] [address] [id number] [address] [place] [address], [place] [address] 10 Dec, 2014 [facility] [address] [id number] [address] [place] [address] Dec, [facility] [address] [id number] [address] [place] [address] Dec, [facility] [address] [id number] [address] [place] [id number] Dec, [facility] [address] [id number] [address] [place] [address] Dec, [facility] [address] [id number] [address] [place] [address] Dec, [facility] [address] [id number] [address] [place] [address] Nov, [facility] [address] [id number] [address] [place] [address] Nov, IMMUNIZATIONS No Known Immunizations SOCIAL HISTORY Never Assessed REASON FOR VISIT Pain management (chronic)- no Valle DX of diabetes Nov 24 at [facility] in [place]- bs of [facility], requesting refills on crestor and lisinopril PLAN OF CARE Activity Details Follow Up 1 Months Reason:CHM/DM VITAL SIGNS Height 63 in 2017-11-28 Weight 168.3 lbs 2017-11-28 Temperature 97.8 degrees Fahrenheit 2017-11-28 Heart Rate 78 bpm 2017-11-28 Respiratory Rate 18 2017-11-28 BMI 29.81 kg/m2 2017-11-28 Blood pressure systolic 130 mmHg 2017-11-28 Blood pressure diastolic 82 mmHg 2017-11-28 MEDICATIONS Medication Instructions Dosage Frequency Start Date End Date Duration S tatus Cyclobenzaprine HCl 10 mg Orally Three times a day 1 tablet as need ed 8h Dec, 90 days Active Hydrocodone-Acetaminophen 10-325 MG Orally every 6 hrs 1 tablet as needed 6h Nov, 28 days Active Gabapentin 400 mg Orally 3 times a day TAKE ONE CAPSULE BY MOUTH THREE TIMES DAILY 8h 90 days Active Lisinopril 10 mg Orally Once a day 1 tablet 24h 90 d ays Active Topamax 100 mg Orally Twice a day 1 tablet 12h 13 Aug, 2016 90 days Active Crestor 10 mg Orally Once a day 1 tablet 24h 07 Feb, 2016 90 days Active MetFORMIN HCl ER 500 mg Orally twice a day 1 tablet with ev ening meal x 1 week, then 1 tablet twice daily with meals 12h Nov, 90 d ays Active Meloxicam 15 MG Orally Once a day 1 tablet 24h 90 da ys Active Glucocard Expression Test 1 subcutaneously 2 times a day test 2 times per day 12h Nov, 12 months Active Requip 3 MG Orally Once a day at hs 1 tablet 13 Aug, 2016 90 days Active RESULTS Name Result Date Reference Range A1C (IN HOUSE) 2017-11-28 A1C IN HOUSE 10.1 4.3 - 5.6 % Previous A1c Lot [id number] Exp date 06/2019 MICROALBUMIN, URINE (IN HOUSE) 2017-11-28 MICROALBUMIN Abnormal Lot # [id number] Exp date 10/24/18 Clarity Sl cloudy Color yellow ALB 80 CRE 100 A:C (IN HOUSE) 30-300 Control Control Lot # Exp date [employer] 2017-11-28 PROCEDURES Procedure Date Ordered Result Body Site GLYCATED HEMOGLOBIN TEST Nov 28, 2017 MICROALBUMIN, SEMIQUANT Nov 28, 2017 No Charge Nov 28, 2017 INSTRUCTIONS MEDICATIONS ADMINISTERED No Known Medications MEDICAL [...]
--- OUTSIDE RECORDS SUMMARY | 2020-02-04 15:03 | XMS REPORT ---
Author Author Caitie Albert Organization [facility] Address [address] [place] [address] Care Team Providers Care Product Support Manager Name Role Phone Roosevelt CARMELITA Unavailable PROBLEMS Type Condition ICD9-CM Code MPF21-YT Code Onset Dates Condition S tatus SNOMED Code Problem Migraines G43.909 Active 84205773 Problem Anxiety F41.9 Active 35517079 Problem Hyperlipemia E78.5 Active 6721699 4 Problem Type 2 diabetes mellitus wit h diabetic polyneuropathy, without long-term current use of insulin E11.42 Active 50837 006 Problem Type 2 diabetes mellitus wit h hyperglycemia, without long-term current use of insulin E11.65 Active 24963539 Problem OAB (overactive bladder) N32.81 Activ e 259540769 Problem Muscle spasms of both lower extremities M62.838 Active 444714905 Problem Chronic, continuous use of opioids F11.90 Active 285406777 Problem Chronic pain disorder G89.4 Active 708321512 Problem Fibromyalgia M79.7 Active 5457526 7 Problem Restless leg syndrome G25.81 Active 61205046 Problem Degenerative disc disease, lumbar M51.36 Active 34001900 Problem Vitamin D deficiency E55.9 Active 90567815 Problem HTN (hypertension) I10 Active 3 7287853 ALLERGIES No Information ENCOUNTERS Encounter Location Date Diagnosis [facility] [address] [facility] [id number] [address] [place] [address] Apr, [facility] [address] [facility] [id number] [address] [place] [address] Jan, [facility] [address] [facility] [id number] [address] [place] [address] Jan, [facility] [address] [facility] [id number] [address] [place] [address] Jan, [place] [address] [address] Jan, [place] [address] [address] Jan, Type 2 diabetes mellitus wit h diabetic polyneuropathy, without long-term current use of insulin E11.42 ; Type 2 diabetes mellitus with hyperglycemia, without long-term current use of insulin E11.65 ; Degenerative disc disease, lumbar M51.36 ; Fibromyalgia M79.7 ; Restless leg syndrome G25.81 ; HTN (hypertension) I10 ; Hyperlipemia E78.5 ; Anxiety F41.9 ; Migraines G43.909 and High risk medication use Z79.899 [place] [address] [address] Dec, Chronic pain disorder G89.4 [place] [address] [address] Nov, Chronic pain disorder G89.4 [place] [address] [address] Nov, [place] [address] [address] Nov, Type 2 diabetes mellitus wit h hyperglycemia, without long-term current use of insulin E11.65 ; HTN (hypertension) I10 ; Hyperlipemia E78.5 ; Restless leg syndrome G25.81 ; Fibromyalgia M79.7 ; Chronic tension-type headache, intractable G44.221 ; Migraines G43.909 ; Chronic pain disorder G89.4 and Overweight (BMI 25.0-29.9) E66.3 [place] [address] [address] Nov, [place] [address] [address] Oct, Degenerative disc disease, l umbar M51.36 [place] [address] [address] Sep, Degenerative disc disease, l umbar M51.36 [place] [address] [address] Sep, [place] [address] [address] Aug, Degenerative disc disease, l umbar M51.36 [place] [address] [address] Aug, Fall from height of greater than 3 feet W19.XXXA ; Hematoma of left hip, subsequent encounter S70.02XD ; Fibromyalgia M79.7 ; Muscle spasms of both lower extremities M62.838 ; Anxiety F41.9 ; Degenerative disc disease, lumbar M51.36 ; Chronic pain disorder G89.4 and Chronic, continuous use of opioids F11.90 [place] [address] [address] Jul, [place] [address] [address] Jul, Degenerative disc disease, l umbar M51.36 [place] [address] [address] Jun, Degenerative disc disease, l umbar M51.36 [place] [address] [address] May, Degenerative disc disease, l umbar M51.36 [place] [address] [address] May, [place] [address] [address] Apr, Degenerative disc disease, l umbar M51.36 [place] [address] [address] Apr, Degenerative disc disease, l umbar M51.36 [place] [address] [id number] [address] [place] [address] March, Degenerative disc disease, l umbar M51.36 and Fall (on) (from) other stairs and steps, initial encounter W10.8XXA [facility] [address] [id number] [address] [place] [address] March, [facility] [address] [id number] [address] [place] [address] March, [facility] [address] [id number] [address] [place] [address] March, [facility] [address] [facility] [id number] [address] [place] [address] March, [facility] [address] [facility] [id number] [address] [place] [address] Feb, [facility] [address] [facility] [id number] [address] [place] [address] Jan, Fibromyalgia M79.7 [facility] [address] [facility] [id number] [address] [place] [address] Jan, [facility] [address] [facility] [id number] [address] [place] [address] Dec, Degenerative disc disease, l umbar M51.36 [facility] [address] [facility] [id number] [address] [place] [address] Dec, [facility] [address] [facility] [id number] [address] [place] [address] Nov, Degenerative disc disease, l umbar M51.36 ; Fibromyalgia M79.7 ; Restless leg syndrome G25.81 ; HTN (hypertension) I10 ; Hyperlipemia E78.5 ; Chronic tension-type headache, intractable G44.221 and OAB (overactive bladder) N32.81 [facility] [address] [facility] [id number] [address] [place] [address] Nov, [facility] [address] [id number] [address] [place] [address] Oct, [facility] [address] [facility] [id number] [address] [place] [address] Oct, [facility] [address] [id number] [place] [id number] Oct, [facility] [address] [facility] [id number] [address] [place] [address] Sep, [facility] [address] [facility] [id number] [address] [place] [address] Aug, [facility] [address] [facility] [id number] [address] [place] [address] Aug, [facility] [address] [facility] [id number] [address] [place] [address] Aug, Degenerative disc disease, l umbar M51.36 [facility] [address] [facility] [id number] [address] [place] [address] Aug, Degenerative disc disease, l umbar M51.36 ; Fibromyalgia M79.7 ; Migraines G43.909 ; Hyperlipemia E78.5 ; Muscle spasms of both lower extremities M62.838 ; Chronic tension-type headache, intractable G44.221 ; HTN (hypertension) I10 and Restless leg syndrome G25.81 [facility] [address] [facility] [id number] [address] [place] [address] Jul, [facility] [address] [facility] [id number] [address] [place] [address] Jul, [facility] [address] [facility] [id number] [address] [place] [address] Jul, [facility] [address] [facility] [id number] [address] [place] [address] Jun, Chronic tension-type headach e, intractable G44.221 ; Muscle spasms of both lower extremities M62.838 ; Fibromyalgia M79.7 ; Degenerative disc disease, lumbar M51.36 ; Restless leg syndrome G25.81 ; Migraines G43.909 ; Hyperlipemia E78.5 and Anxiety F41.9 [facility] [address] [facility] [id number] [address] [place] [address] Jun, [facility] [address] [id number] [address] [place] [address] Jun, [facility] [address] [facility] [id number] [address] [place] [address] Jun, [facility] [address] [id number] [address] [place] [address] Jun, [facility] [address] [facility] [id number] [address] [place] [address] May, Sebaceous cyst L72.3 [facility] [address] [facility] [id number] [address] [place] [address] May, Low back pain M54.5 [facility] [address] [facility] [id number] [address] [place] [address] Apr, [facility] [address] [facility] [id number] [address] [place] [address] Apr, Fibromyalgia M79.7 [facility] [address] [facility] [id number] [address] [place] [address] Apr, Degenerative disc disease, l umbar M51.36 ; Fibromyalgia M79.7 ; Migraines G43.909 ; Hyperlipemia E78.5 ; Restless leg syndrome G25.81 ; Other intractable trigeminal autonomic cephalgia (TAC) G44.091 ; Secondary hypertension I15.9 and Anxiety F41.9 [facility] [address] [facility] [id number] [address] [place] [address] March, Other group home (current) dr amie potter Z79.899 and HTN (hypertension) I10 [facility] [address] [facility] [id number] [address] [place] [address] March, Fibromyalgia M79.7 [facility] [address] [facility] [id number] [address] [place] [address] Feb, [facility] [address] [facility] [id number] [address] [place] [address] Feb, [facility] [address] [facility] [id number] [address] [place] [address] Feb, [facility] [address] [facility] [id number] [address] [place] [address] Feb, Hyperlipemia E78.5 [facility] [address] [facility] [id number] [address] [place] [address] Feb, Migraines G43.909 ; Fibromya lgia M79.7 ; Degenerative disc disease, lumbar M51.36 ; Restless leg syndrome G25.81 ; HTN (hypertension) I10 and Tobacco abuse counseling Z71.6 [facility] [address] [place] [id number] [address] [place] [address] Feb, [facility] [address] [facility] [id number] [address] [place] [address] Jan, [facility] [address] [facility] [id number] [address] [place] [address] Jan, [facility] [address] [facility] [id number] [address] [place] [address] Dec, [facility] [address] [place] [id number] [address] [place] [address] Dec, Degenerative disc disease, l umbar M51.36 ; Restless leg syndrome G25.81 ; Migraines G43.909 ; HTN (hypertension) I10 ; Fibromyalgia M79.7 and Other oil heaterman (current) drug therapy Z79.899 [facility] [address] [facility] [id number] [address] [place] [address] Dec, [facility] [address] [facility] [id number] [address] [place] [address] Nov, [facility] [address] [id number] [address] [place] [address] Nov, [facility] [address] [id number] [address] [place] [address] Oct, [facility] [address] [id number] [address] [place] [address] Oct, [facility] [address] [id number] [address] [place] [address] Oct, [facility] [address] [id number] [address] [place] [address] Sep, [facility] [address] [id number] [address] [place] [address] Sep, Routine gynecological examin ation V72.31 ; Degenerative disc disease, lumbar M51.36 ; Fibromyalgia M79.7 ; Restless leg syndrome G25.81 ; Migraines G43.909 and Well woman exam Z01.419 [facility] [address] [id number] [address] [place] [address] Sep, [facility] [address] [id number] [address] [place] [address] Aug, [facility] [address] [facility] [id number] [address] [place] [address] Aug, Migraines G43.909 ; Degenera tive disc disease, lumbar M51.36 ; Fibromyalgia M79.7 ; Restless leg syndrome G25.81 and HTN (hypertension) I10 [facility] [address] [id number] [address] [place] [address] Aug, [facility] [address] [id number] [address] [place] [address] Aug, [facility] [address] [id number] [address] [place] [address] Jul, [facility] [address] [facility] [id number] [address] [place] [address] Jul, [facility] [address] [id number] [address] [place] [address] Jun, Fibromyalgia 729.1 ; Lumbago 724.2 ; Restless leg syndrome 333.94 ; Migraines 346.90 and Elevated blood pressure (not hypertension) 796.2 [facility] [address] [id number] [address] [place] [address] May, Fibromyalgia 729.1 ; Nontoxi c uninodular goiter 241.0 ; Lumbago 724.2 ; Restless leg syndrome 333.94 and Migraines 346.90 [facility] [address] [id number] [address] [place] [address] Feb, [facility] [address] [id number] [address] [place] [address] Feb, [facility] [address] [id number] [address] [place] [address] Jan, [facility] [address] [id number] [address] [place] [address] Jan, [facility] [address] [id number] [address] [place] [address] Jan, [facility] [address] [facility] [id number] [address] [place] [address] Jan, [facility] [address] [id number] [address] [place] [phone] Jan, [facility] [address] [id number] [address] [place] [address] Jan, [facility] [address] [id number] [address] [place] [address] Jan, [facility] [address] [id number] [address] [place] [address] Jan, [facility] [address] [id number] [address] [place] [address] Dec, [facility] [address] [id number] [address] [place] [address] Dec, [facility] [address] [id number] [address] [place] [address] Dec, [facility] [address] [id number] [address] [place] [address] Dec, [facility] [address] [id number] [address] [place] [address] Dec, [facility] [address] [id number] [address] [place] [address] Dec, [facility] [address] [id number] [address] [place] [address] Dec, [facility] [address] [id number] [address] [place] [address] Dec, [facility] [address] [id number] [address] [place] [address] Dec, [facility] [address] [id number] [address] [place] [address] Dec, [facility] [address] [id number] [address] [place] [address] Dec, [facility] [address] [id number] [address] [place] [address] Nov, [facility] [address] [id number] [address] [place] [address] Nov, IMMUNIZATIONS No Known Immunizations SOCIAL HISTORY Never Assessed REASON FOR VISIT Medication refill request PLAN OF CARE VITAL SIGNS MEDICATIONS Medication Instructions Dosage Frequency Start Date End Date Duration S tatus Gabapentin 400 mg Orally 3 times a day 1 capsule 8h 30 Active RESULTS No Results PROCEDURES No [...]
--- OUTSIDE RECORDS SUMMARY | 2020-02-04 15:03 | XMS REPORT ---
Author Caitie Otero Organization [employer] Address Unknown Phone Unavailable Care Team Providers Care Medicaid Collection Specialist Name Role Phone CARMELITA ALLEN CP Unavailable [...] disc without mye lopathy 722.10 Active Medications Medication Code System Code Instructions Start Date End Date Status Dosage Hydrocodone-Acetaminophen [facility] [address]-82 7.5-325 MG Ora lly 3 times a day Jul 06, 2015 1 tablet as needed Results No Known Results Summary Purpose [employer] Submission
--- OUTSIDE RECORDS SUMMARY | 2020-02-04 15:03 | XMS REPORT ---
Author Author Caitie ALLEN [facility] Address [address] [place] [address] Care Team Providers Care Home Health Administrator Name Role Phone ALLENOPALCARMELITA Unavailable PROBLEMS Type Condition ICD9-CM Code [id number] Code Onset Dates Condition S tatus SNOMED Code Problem Restless leg syndrome G25.81 Active 44715154 Problem Hyperlipemia E78.5 Active 7251974 4 Problem Degenerative disc disease, lumbar M51.36 Active 96737573 Problem Well woman exam Z01.419 Active 3103 60097 Problem Migraines G43.909 Active 04159186 Problem Fibromyalgia M79.7 Active 0124104 7 Problem HTN (hypertension) I10 Active 3 0024658 Problem Chronic pain disorder G89.4 Active 931586325 Problem Chronic, continuous use of opioids F11.90 Active 997401316 Problem Chronic tension-type headache, intractable G44.221 Active 665066097 Problem Anxiety F41.9 Active 34708696 Problem OAB (overactive bladder) N32.81 Activ e 101755933 Problem Muscle spasms of both lower extremities M62.838 Active 352542308 ALLERGIES Substance Reaction Event Type Date Status Amoxicillin hives Drug Allergy March, Active tape rash Non Drug Allergy March, Active SOCIAL HISTORY Never Assessed PLAN OF CARE Activity Details Follow Up 3 Months Reason: VITAL SIGNS Height 63 in 2017-04-18 Weight 163.5 lbs 2017-04-18 Temperature 98.1 degrees Fahrenheit 2017-04-18 Heart Rate 88 bpm 2017-04-18 Respiratory Rate 18 2017-04-18 BMI 28.96 kg/m2 2017-04-18 Blood pressure systolic 140 mmHg 2017-04-18 Blood pressure diastolic 88 mmHg 2017-04-18 MEDICATIONS Medication Instructions Dosage Frequency Start Date End Date Duration S tatus Crestor 10 mg Orally Once a day 1 tablet 24h Feb, Active Requip 3 MG Orally Once a day at hs 1 tablet Aug, Active Topamax 100 MG Orally Twice a day 1 tablet 12h Aug, Active Gabapentin 400 MG TAKE ONE CAPSULE BY MOUTH THREE TIMES DAILY. 30 Active Lisinopril 10 mg Orally Once a day 1 tablet 24h 30 Active Hydrocodone-Acetaminophen 10-325 MG Orally every 6 hrs 1 tablet as needed 6h March, Active Cyclobenzaprine HCl 10 mg Orally Three times a day 1 tablet as need ed 8h 10 Dec, 2016 Active Trazodone HCl 100 MG Orally Once a day 1 tablet at bedtime 24h 2015 Active Hydrocodone-Acetaminophen 7.5-325 MG Orally ( due Nove 4 ( 4 times a day 1 tablet as needed 6h March, 28 Active Meloxicam 15 MG Orally Once a day 1 tablet 24h Active RESULTS No Results PROCEDURES Procedure Date Ordered Result Body Site DEPO MEDROL 40 MG/ML April 18, 2017 DEXAMETHASONE 4MG/ML (PER 1 MG) April 18, 2017 THER/PROPH/DIAG INJ, SC/IM April 18, 2017 IMMUNIZATIONS Vaccine Route Administration Date Status DEXAMETHASONE 4MG/ML (PER 1 MG) IM Intramuscular April 18, 2017 Administered DEPO MEDROL 40 MG/ML IM Intramuscular April 18, 2017 Administer ed MEDICAL (GENERAL) HISTORY Type Description Date Medical History fibromyalgia Medical History degenerative disk disease Medical History degenerative arthritis Surgical History hysterectomy Surgical History several lymph nodes removed Surgical History tonsillectomy Surgical History tubal ligation Hospitalization History surgery Hospitalization History childbirth Hospitalization History [facility] for [facility]
--- OUTSIDE RECORDS SUMMARY | 2020-02-04 15:04 | XMS REPORT ---
Author Author Caitie ALLEN [facility] Address [address] [place] [address] Care Team Providers Care Crew Boat Operator Name Role Phone CARMELITA ALLEN Unavailable PROBLEMS Type Condition ICD9-CM Code [id number] Code Onset Dates Condition S tatus SNOMED Code Problem HTN (hypertension) I10 Active 3 0018649 Problem Restless leg syndrome G25.81 Active 07756728 Problem Migraines G43.909 Active 76216384 Problem Well woman exam Z01.419 Active 3103 40325 Problem Chronic tension-type headache, intractable G44.221 Active 571291654 Problem Muscle spasms of both lower extremities M62.838 Active 981016056 Problem Degenerative disc disease, lumbar M51.36 Active 96505731 Problem Fibromyalgia M79.7 Active 4577734 7 Problem Anxiety F41.9 Active 83265288 Problem Hyperlipemia E78.5 Active 6186390 4 ALLERGIES Unknown Allergies SOCIAL HISTORY No smoking Hx information available PLAN OF CARE VITAL SIGNS MEDICATIONS Medication Instructions Dosage Frequency Start Date End Date Duration S tatus Hydrocodone-Acetaminophen 7.5-325 MG Orally 3 times a day 1 tablet as needed 8h 12 Jun, 2015 Active RESULTS No Results PROCEDURES No Known procedures IMMUNIZATIONS No Known Immunizations
--- OUTSIDE RECORDS SUMMARY | 2020-02-04 15:04 | XMS REPORT ---
Author Caitie Otero Organization [employer] Address Unknown Phone Unavailable Care Team Providers Care Replanting Machine Crew Name Role Phone CARMELITA ALLEN CP Unavailable Allergies No Known Allergies Problems Problem Type Condition Code Onset Dates Condition Statu s Problem Fibromyalgia M79.7 Active Problem Restless leg syndrome G25.81 Active Problem Degenerative disc disease, lumbar M51.36 Active Problem Migraines G43.909 Active Problem HTN (hypertension) I10 Active Medications Medication Code System Code Instructions Start Date End Date Status Dosage Tizanidine HCl [facility] [address]-59 4 MG Orally bid Sep 21, 2015 1 tablet as needed Results No Known Results Summary Purpose [employer] Submission
--- OUTSIDE RECORDS SUMMARY | 2020-02-04 15:04 | XMS REPORT ---
Author Caitie Otero [facility] [employer] Address Unknown Phone Unavailable Care Team Providers Care Bat Boy/Girl Name Role Phone CARMELITA ALLEN CP Unavailable Allergies, Adverse Reactions, Alerts Substance Reaction Event Type Amoxicillin hives Drug Allergy tape rash Non Drug Allergy Problems Problem Type Condition Code [...] Degenerative disc disease, lumbar M51.36 Active Assessment Anxiety F41.9 Active Assessment Hyperlipemia E78.5 Active Assessment Degenerative disc disease, lumbar M51.36 Active Assessment Fibromyalgia M79.7 Active Assessment Migraines G43.909 Active Assessment Muscle spasms of both lower extremities M62.838 Active Assessment Restless leg syndrome G25.81 Active Assessment Chronic tension-type headache, intractable G44.221 Active Medications Medication Code System Code Instructions Start Date End Date Status Dosage Keflex [facility] [address]-56 500 MG Orally Three times a day A 2015Jul 26, [address] [facility] 97515527626 10 mg Orally Once a day [address] [facility] [address]-25 100 MG Orally Once a day Jul 05 6 1 tablet at bedtime Vistaril [facility] [address]-49 25 MG Orally every 8 hrs May 09, 2016 1 capsule as needed Requip [facility] [address]-54 2 MG Orally Once a day June 17, 2015 1 tablet 1 to 3 hours before bedtime C[address]or [facility] [address]-40 10 mg Orally Once a day March 01, [address] [facility] 28221265776 15 MG Orally Once a day 1 tablet Hydrocodone-Acetaminophen [facility] [address]-54 7.5-325 MG Ora lly 3 times a day Jul 06, 2015 1 tablet as needed Topamax [facility] 70085789871 50 mg Orally Twice a day [address] [facility] [address]-03 4 MG Orally bid Sep 21, 2015 1 tablet as needed Gabapentin [facility] 35186441621 400 MG TAKE ONE CAPSULE BY MOUTH THREE TIMES DAILY Procedures Procedure Coding System Code Date COMPREHEN METABOLIC PANEL CPT-4 03084 Jun Office Visit, Est Pt., Level 4 CPT-4 64126 A 2015 COMPLETE CBC W/AUTO DIFF WBC CPT-4 94652 Jul 17, 2016 DEXAMETHASONE 4MG/ML (PER 1 MG) CPT-4 J1100 Jul 17, 2016 VENIPUNCT, ROUTINE* CPT-4 33544 Jul 17, 2016 DEPO MEDROL 40 MG/ML CPT-4 J1030 Jul 17, 6 THER/PROPH/DIAG INJ, SC/IM CPT-4 41738 Jun 262015 Vital Signs Date/Time: Jul 17, 2016 Cardiac Monitoring Heart Rate 90 bpm Weight 159 lbs Height 63 in BMI 28.16 Index Blood Pressure Diastolic 90 mmHg Blood Pressure Systolic 150 mmHg Results No Known Results Summary Purpose [employer] Submission
--- OUTSIDE RECORDS SUMMARY | 2020-02-04 15:04 | XMS REPORT ---
Author Caitie Otero [facility] e[employer] Address Unknown Phone Unavailable Care Team Providers Care Fuels Sales Representative Name Role Phone CARMELITA ALLEN CP Unavailable Allergies No Known Allergies Problems Problem Type Condition Code Onset Dates Condition Statu s Problem Well woman exam Z01.419 Active Problem Hyperlipemia E78.5 Active Problem Degenerative disc disease, lumbar M51.36 Active Problem Anxiety F41.9 Active Problem Migraines G43.909 Active Problem HTN (hypertension) I10 Active Problem Fibromyalgia M79.7 Active Problem Restless leg syndrome G25.81 Active Medications No Known Medications Results No Known Results Summary Purpose [employer] Submission
--- OUTSIDE RECORDS SUMMARY | 2020-02-04 15:04 | XMS REPORT ---
Author Caitie Otero [facility] [employer] Address Unknown Phone Unavailable Care Team Providers Care Hotel Custodian Name Role Phone CARMELITA ALLEN CP Unavailable [...] Start Date End Date Status Dosage Hydrocodone-Acetaminophen [facility] [address]-17 7.5-325 MG Ora lly 3 times a day Jul 06, 2015 1 tablet as needed Results No Known Results Summary Purpose [employer] Submission
--- OUTSIDE RECORDS SUMMARY | 2020-02-04 15:04 | XMS REPORT ---
Author Caitie Otero [facility] [employer] Address Unknown Phone Unavailable Care Team Providers Care Filing Clerk Name Role Phone CARMELITA ALLEN CP Unavailable [...]
--- OUTSIDE RECORDS SUMMARY | 2020-02-04 15:04 | XMS REPORT ---
Author Author WILLAM Caitielinda HASSAN Organization [facility] Address [address] [place] [address] Care Team Providers Care Fireworks Maker Name Role Phone QUARLESSONYA Lamas Unavailable PROBLEMS Type Condition ICD9-CM Code GVE32-AO Code Onset Dates Condition S tatus SNOMED Code Problem Anxiety F41.9 Active 63728922 Problem OAB (overactive bladder) N32.81 Activ e 184508071 Problem Muscle spasms of both lower extremities M62.838 Active 982404833 Problem Chronic tension-type headache, intractable G44.221 Active 295511796 Problem Overweight (BMI 25.0-29.9) E66.3 Act ramana 280259749 Problem Chronic, continuous use of opioids F11.90 Active 709741360 Problem Chronic pain disorder G89.4 Active 456234783 Problem Type 2 diabetes mellitus wit h diabetic polyneuropathy, without long-term current use of insulin E11.42 Active 62655 006 Problem Type 2 diabetes mellitus wit h hyperglycemia, without long-term current use of insulin E11.65 Active 21529884 Problem Vitamin D deficiency E55.9 Active 45634565 Problem Fibromyalgia M79.7 Active 7961532 7 Problem HTN (hypertension) I10 Active 3 6130261 Problem Restless leg syndrome G25.81 Active 60430336 Problem Migraines G43.909 Active 13963784 Problem Degenerative disc disease, lumbar M51.36 Active 66843031 Problem Hyperlipemia E78.5 Active 7947532 4 ALLERGIES No Information ENCOUNTERS Encounter Location Date Diagnosis [facility] [address] [facility] [id number] [address] [place] [id number] Apr, Chronic pain disorder G89.4 [facility] [address] [facility] [id number] [address] [place] [id number] 15 Apr, 2018 Type 2 diabetes mellitus [...] intractable G44.221 and Overweight (BMI 25.0-29.9) E66.3 [facility] [address] [facility] [id number] [address] [place] [phone] March, Chronic pain disorder G89.4 [place] [address] [place] [id number] [address] [place] [phone] March, Type 2 diabetes mellitus wit h diabetic polyneuropathy, without long-term current use of insulin E11.42 [place] [address] [facility] [id number] [address] [place] [phone] Feb, Chronic pain disorder G89.4 [place] [address] [facility] [id number] [address] [place] [phone] Jan, [place] [address] [facility] [id number] [address] [place] [phone] Jan, Pharyngitis, unspecified vashti ology J02.9 ; Fibromyalgia M79.7 and Chronic pain disorder G89.4 [facility] [address] [place] [id number] [address] [place] [phone] Jan, [facility] [address] [facility] [id number] [address] [place] [phone] Jan, [place] [address] [facility] [id number] [address] [place] [phone] Jan, [facility] [address] [place] [id number] [address] [place] [id number] Jan, Type 2 diabetes mellitus wit h diabetic polyneuropathy, without long-term current use of insulin E11.42 ; Type 2 diabetes mellitus with hyperglycemia, without long-term current use of insulin E11.65 ; Degenerative disc disease, lumbar M51.36 ; Fibromyalgia M79.7 ; Restless leg syndrome G25.81 ; HTN (hypertension) I10 ; Hyperlipemia E78.5 ; Anxiety F41.9 ; Migraines G43.909 and High risk medication use Z79.899 [place] [address] [address] Dec, Chronic pain disorder G89.4 [place] [address] [id number] Nov, Chronic pain disorder G89.4 [place] [address] [address] Nov, [place] [address] [address] Nov, Type 2 diabetes mellitus wit h hyperglycemia, without long-term current use of insulin E11.65 ; HTN (hypertension) I10 ; Hyperlipemia E78.5 ; Restless leg syndrome G25.81 ; Fibromyalgia M79.7 ; Chronic tension-type headache, intractable G44.221 ; Migraines G43.909 ; Chronic pain disorder G89.4 and Overweight (BMI 25.0-29.9) E66.3 [place] [address] [address] Nov, [place] [address] [address] Oct, Degenerative disc disease, l umbar M51.36 [place] [address] [address] Sep, Degenerative disc disease, l umbar M51.36 [place] [address] [address] Sep, [place] [address] [address] Aug, Degenerative disc disease, l umbar M51.36 [place] [address] [address] Aug, Fall from height of greater than 3 feet W19.XXXA ; Hematoma of left hip, subsequent encounter S70.02XD ; Fibromyalgia M79.7 ; Muscle spasms of both lower extremities M62.838 ; Anxiety F41.9 ; Degenerative disc disease, lumbar M51.36 ; Chronic pain disorder G89.4 and Chronic, continuous use of opioids F11.90 [place] [address] [place] [id number] [place] [address] Jul, [place] [address] [facility] [id number] [place] [address] Jul, Degenerative disc disease, l umbar M51.36 [place] [address] [place] [id number] [place] [phone] Jun, Degenerative disc disease, l umbar M51.36 [place] [address] [address] May, Degenerative disc disease, l umbar M51.36 [place] [address] [place] [id number] [address] [place] [address] May, [place] [address] [place] [id number] [address] [place] [id number] Apr, Degenerative disc disease, l umbar M51.36 [place] [address] [place] [id number] [address] [place] [address] Apr, Degenerative disc disease, l umbar M51.36 [place] [address] [place] [id number] [address] [place] [id number] March, Degenerative disc disease, l umbar M51.36 and Fall (on) (from) other stairs and steps, initial encounter W10.8XXA [place] [address] [place] [id number] [address] [place] [address] March, [place] [address] [place] [id number] [place] [phone] March, [facility] [address] [facility] [id number] [address] [place] [phone] March, [facility] [address] [facility] [id number] [address] [place] [id number] March, [facility] [address] [facility] [id number] [address] [place] [phone] Feb, [facility] [address] [facility] [id number] [address] [place] [address] Jan, Fibromyalgia M79.7 [facility] [address] [facility] [id number] [address] [place] [phone] Jan, [facility] [address] [facility] [id number] [address] [place] [phone] Dec, Degenerative disc disease, l umbar M51.36 [facility] [address] [facility] [id number] [address] [place] [phone] Dec, [facility] [address] [facility] [id number] [address] [place] [id number] Nov, Degenerative disc disease, l umbar M51.36 ; Fibromyalgia M79.7 ; Restless leg syndrome G25.81 ; HTN (hypertension) I10 ; Hyperlipemia E78.5 ; Chronic tension-type headache, intractable G44.221 and OAB (overactive bladder) N32.81 [facility] [address] [facility] [id number] [address] [place] [id number] Nov, [facility] [address] [facility] [id number] [address] [place] [phone] Oct, [facility] [address] [facility] [id number] [address] [place] [phone] Oct, [address] [id number] [place] [id number] Oct, [facility] [address] [facility] [id number] [address] [place] [phone] Sep, [facility] [address] [facility] [id number] [address] [place] [phone] Aug, [facility] [address] [facility] [id number] [address] [place] [phone] Aug, [facility] [address] [facility] [id number] [address] [place] [id number] Aug, Degenerative disc disease, l umbar M51.36 [facility] [address] [facility] [id number] [address] [place] [id number] Aug, Degenerative disc disease, l umbar M51.36 ; Fibromyalgia M79.7 ; Migraines G43.909 ; Hyperlipemia E78.5 ; Muscle spasms of both lower extremities M62.838 ; Chronic tension-type headache, intractable G44.221 ; HTN (hypertension) I10 and Restless leg syndrome G25.81 [facility] [address] [facility] [id number] [address] [place] [id number] Jul, [facility] [address] [place] [id number] [address] [place] [id number] Jul, [facility] [address] [facility] [id number] [address] [place] [phone] Jul, [facility] [address] [place] [id number] [address] [place] [id number] Jun, Chronic tension-type headach e, intractable G44.221 ; Muscle spasms of both lower extremities M62.838 ; Fibromyalgia M79.7 ; Degenerative disc disease, lumbar M51.36 ; Restless leg syndrome G25.81 ; Migraines G43.909 ; Hyperlipemia E78.5 and Anxiety F41.9 [facility] [address] [facility] [id number] [address] [place] [id number] Jun, [facility] [address] [facility] [id number] [address] [place] [phone] Jun, [facility] [address] [place] [id number] [address] [place] [id number] Jun, [facility] [address] [facility] [id number] [address] [place] [phone] Jun, [facility] [address] [facility] [id number] [address] [place] [address] May, Sebaceous cyst L72.3 [facility] [address] [facility] [id number] [address] [place] [id number] May, Low back pain M54.5 [facility] [address] [facility] [id number] [address] [place] [phone] Apr, [facility] [address] [facility] [id number] [address] [place] [address] Apr, Fibromyalgia M79.7 [facility] [address] [facility] [id number] [address] [place] [id number] Apr, Degenerative disc disease, l umbar M51.36 ; Fibromyalgia M79.7 ; Migraines G43.909 ; Hyperlipemia E78.5 ; Restless leg syndrome G25.81 ; Other intractable trigeminal autonomic cephalgia (TAC) G44.091 ; Secondary hypertension I15.9 and Anxiety F41.9 [facility] [address] [facility] [id number] [address] [place] [phone] March, Other longterm (current) dr amie potter Z79.899 and HTN (hypertension) I10 [facility] [address] [facility] [id number] [address] [place] [phone] March, Fibromyalgia M79.7 [facility] [address] [facility] [id number] [address] [place] [id number] Feb, [facility] [address] [facility] [id number] [address] [place] [phone] Feb, [facility] [address] [facility] [id number] [address] [place] [id number] Feb, [facility] [address] [facility] [id number] [address] [place] [phone] Feb, Hyperlipemia E78.5 [facility] [address] [facility] [id number] [address] [place] [phone] Feb, Migraines G43.909 ; Fibromya lgia M79.7 ; Degenerative disc disease, lumbar M51.36 ; Restless leg syndrome G25.81 ; HTN (hypertension) I10 and Tobacco abuse counseling Z71.6 [facility] [address] [place] [id number] [address] [place] [phone] Feb, [facility] [address] [facility] [id number] [address] [place] [phone] Jan, [facility] [address] [place] [id number] [place] [phone] Jan, [facility] [address] [place] [id number] [place] [phone] Dec, [facility] [address] [place] [id number] [place] [phone] Dec, Degenerative disc disease, l umbar M51.36 ; Restless leg syndrome G25.81 ; Migraines G43.909 ; HTN (hypertension) I10 ; Fibromyalgia M79.7 and 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 [facility] [address] [place] [id number] [address] [place] [phone] Dec, [facility] [address] [place] [id number] [address] [place] [phone] Nov, [facility] [address] [place] [id number] [address] [place] [id number] Nov, [facility] [address] [place] [id number] [address] [place] [phone] Oct, [facility] [address] [place] [id number] [address] [place] [phone] Oct, [facility] [address] [place] [id number] [address] [place] [id number] Oct, [facility] [address] [facility] [id number] [address] [place] [phone] Sep, [facility] [address] [facility] [id number] [address] [place] [phone] Sep, Routine gynecological examin ation V72.31 ; Degenerative disc disease, lumbar M51.36 ; Fibromyalgia M79.7 ; Restless leg syndrome G25.81 ; Migraines G43.909 and Well woman exam Z01.419 [facility] [address] [place] [id number] [address] [place] [id number] Sep, [facility] [address] [place] [id number] [address] [place] [id number] Aug, [facility] [address] [place] [id number] [address] [place] [id number] Aug, Migraines G43.909 ; Degenera tive disc disease, lumbar M51.36 ; Fibromyalgia M79.7 ; Restless leg syndrome G25.81 and HTN (hypertension) I10 [facility] [address] [place] [id number] [address] [place] [id number] Aug, [facility] [address] [place] [id number] [address] [place] [id number] Aug, [facility] [address] [place] [id number] [address] [place] [id number] Jul, [facility] [address] [place] [id number] [address] [place] [id number] Jul, [facility] [address] [place] [id number] [address] [place] [phone] Jun, Fibromyalgia 729.1 ; Lumbago 724.2 ; Restless leg syndrome 333.94 ; Migraines 346.90 and Elevated blood pressure (not hypertension) 796.2 [facility] [address] [place] [id number] [address] [place] [phone] May, Fibromyalgia 729.1 ; Nontoxi c uninodular goiter 241.0 ; Lumbago 724.2 ; Restless leg syndrome 333.94 and Migraines 346.90 [facility] [address] [id number] [address] [place] [id number] 14 Feb, 2015 [facility] [address] [id number] [address] [place] [phone] Feb, [facility] [address] [id number] [address] [place] [phone] Jan, [facility] [address] [id number] [address] [place] [phone] Jan, [facility] [address] [id number] [address] [place] [phone] Jan, [facility] [address] [facility] [id number] [address] [place] [phone] Jan, [facility] [address] [id number] [address] [place] [phone] Jan, [facility] [address] [id number] [address] [place] [id number] Jan, [facility] [address] [id number] [address] [place] [id number] Jan, [facility] [address] [facility] [id number] [address] [place] [phone] Jan, [facility] [address] [id number] [address] [place] [id number] Dec, [facility] [address] [id number] [address] [place] [phone] Dec, [facility] [address] [id number] [address] [place] [phone] Dec, [facility] [address] [facility] [id number] [address] [place] [phone] Dec, [facility] [address] [id number] [address] [place] [phone] Dec, [facility] [address] [id number] [address] [place] [phone] Dec, [facility] [address] [id number] [address] [place] [id number] Dec, [facility] [address] [facility] [id number] [address] [place] [phone] Dec, [facility] [address] [facility] [id number] [address] [place] [phone] Dec, [facility] [address] [facility] [id number] [address] [place] [phone] Dec, [facility] [address] [facility] [id number] [address] [place] [phone] Dec, [facility] [address] [facility] [id number] [address] [place] [phone] Nov, [facility] [address] [facility] [id number] [address] [place] [phone] Nov, IMMUNIZATIONS No Known Immunizations SOCIAL HISTORY [...] History surgery Hospitalization History childbirth Hospitalization History [facility] ER for migraine
--- OUTSIDE RECORDS SUMMARY | 2020-02-04 15:04 | XMS REPORT ---
Author Caitie Otero [facility] [employer] Address Unknown Phone Unavailable Care Team Providers Care Engineering Model Maker Name Role Phone CARMELITA ALLEN CP Unavailable [...]
--- OUTSIDE RECORDS SUMMARY | 2020-02-04 15:04 | XMS REPORT ---
Author Author Caitie ALLEN Organization [facility] Address [address] [place] [address] Care Team Providers Care Mold Tooler Name Role Phone CARMELITA ALLEN Unavailable PROBLEMS Type Condition ICD9-CM Code [id number] Code Onset Dates Condition S tatus SNOMED Code Problem Restless leg syndrome G25.81 Active 97688528 Problem HTN (hypertension) I10 Active 3 1278391 Problem Degenerative disc disease, lumbar M51.36 Active 43442533 Problem Well woman exam Z01.419 Active 3103 63728 Problem Migraines G43.909 Active 94964089 Problem OAB (overactive bladder) N32.81 Activ e 937461727 Problem Muscle spasms of both lower extremities M62.838 Active 129601985 Problem Hyperlipemia E78.5 Active 3333849 4 Problem Fibromyalgia M79.7 Active 2590862 7 Problem Chronic tension-type headache, intractable G44.221 Active 210538425 Problem Anxiety F41.9 Active 66629103 ALLERGIES No Information SOCIAL HISTORY Never Assessed PLAN OF CARE VITAL SIGNS MEDICATIONS Medication Instructions Dosage Frequency Start Date End Date Duration S tatus Cyclobenzaprine HCl 10 mg Orally Three times a day 1 tablet as need ed 8h 10 Dec, 2016 Active RESULTS No Results PROCEDURES No Known procedures IMMUNIZATIONS No Known Immunizations MEDICAL (GENERAL) HISTORY Type Description Date Medical History fibromyalgia Medical History degenerative disk disease Medical History degenerative arthritis Surgical History hysterectomy Surgical History several lymph nodes removed Surgical History tonsillectomy Surgical History tubal ligation Hospitalization History surgery Hospitalization History childbirth Hospitalization History [facility] ER for migraine
--- OUTSIDE RECORDS SUMMARY | 2020-02-04 15:04 | XMS REPORT ---
Author Author WILLAM Caitielinda HASSAN Organization [facility] Address [address] [place] [address] Care Team Providers Care On Air Director Name Role Phone SONYA QUARLES Unavailable PROBLEMS Type Condition ICD9-CM Code [id number] Code Onset Dates Condition S tatus SNOMED Code Problem Migraines G43.909 Active 71321818 Problem Anxiety F41.9 Active 17310198 Problem Hyperlipemia E78.5 Active 6194921 4 Problem Type 2 diabetes mellitus wit h diabetic polyneuropathy, without long-term current use of insulin E11.42 Active 89774 006 Problem Type 2 diabetes mellitus wit h hyperglycemia, without long-term current use of insulin E11.65 Active 30281323 Problem OAB (overactive bladder) N32.81 Activ e 286343711 Problem Muscle spasms of both lower extremities M62.838 Active 949039588 Problem Chronic, continuous use of opioids F11.90 Active 566897906 Problem Chronic pain disorder G89.4 Active 238075642 Problem Fibromyalgia M79.7 Active 2770973 7 Problem Restless leg syndrome G25.81 Active 57955157 Problem Degenerative disc disease, lumbar M51.36 Active 61454527 Problem Vitamin D deficiency E55.9 Active 74575270 Problem HTN (hypertension) I10 Active 3 5524980 ALLERGIES No Information ENCOUNTERS Encounter Location Date Diagnosis [facility] [address] [facility] [id number] [address] [place] [phone] Apr, [facility] [address] [place] [phone] March, Chronic pain disorder G89.4 [facility] [address] [place] [id number] [address] [place] [phone] March, Type 2 diabetes mellitus wit h diabetic polyneuropathy, without long-term current use of insulin E11.42 [facility] [address] [place] [id number] [address] [place] [phone] Feb, Chronic pain disorder G89.4 [facility] [address] [place] [id number] [address] [place] [phone] Jan, [facility] [address] [place] [id number] [address] [place] [phone] Jan, Pharyngitis, unspecified vashti ology J02.9 ; Fibromyalgia M79.7 and Chronic pain disorder G89.4 [facility] [address] [facility] [id number] [address] [place] [phone] Jan, [place] [address] [place] [id number] [place] [phone] Jan, [place] [address] [place] [id number] [address] [place] [phone] Jan, [place] [address] [place] [phone] Jan, Type 2 diabetes mellitus wit h diabetic polyneuropathy, without long-term current use of insulin E11.42 ; Type 2 diabetes mellitus with hyperglycemia, without long-term current use of insulin E11.65 ; Degenerative disc disease, lumbar M51.36 ; Fibromyalgia M79.7 ; Restless leg syndrome G25.81 ; HTN (hypertension) I10 ; Hyperlipemia E78.5 ; Anxiety F41.9 ; Migraines G43.909 and High risk medication use Z79.899 [facility] [address] [place] [id number] [address] [place] [address] Dec, Chronic pain disorder G89.4 [place] [address] [place] [id number] [address] [place] [phone] Nov, Chronic pain disorder G89.4 [facility] [address] [facility] [id number] [address] [place] [phone] Nov, [place] [address] [place] [id number] [address] [place] [phone] Nov, Type 2 diabetes mellitus wit h hyperglycemia, without long-term current use of insulin E11.65 ; HTN (hypertension) I10 ; Hyperlipemia E78.5 ; Restless leg syndrome G25.81 ; Fibromyalgia M79.7 ; Chronic tension-type headache, intractable G44.221 ; Migraines G43.909 ; Chronic pain disorder G89.4 and Overweight (BMI 25.0-29.9) E66.[address] [address] Nov, [address] [address] Oct, Degenerative disc disease, l umbar M51.[address] [address] Sep, Degenerative disc disease, l umbar M51.[address] [address] Sep, [address] [address] Aug, Degenerative disc disease, l umbar M51.[address] [address] Aug, Fall from height of greater than 3 feet W19.XXXA ; Hematoma of left hip, subsequent encounter S70.02XD ; Fibromyalgia M79.7 ; Muscle spasms of both lower extremities M62.838 ; Anxiety F41.9 ; Degenerative disc disease, lumbar M51.36 ; Chronic pain disorder G89.4 and Chronic, continuous use of opioids F11.[address] [address] Jul, [address] [address] Jul, Degenerative disc disease, l umbar M51.[address] [address] Jun, Degenerative disc disease, l umbar M51.36 [facility] [address] [id number] [address] [place] [address], [place] [address] May, Degenerative disc disease, l umbar M51.36 [facility] [address] [id number] [address] [place] [address], [place] [address] May, [facility] [address] [id number] [address] [place] [address], [place] [address] Apr, Degenerative disc disease, l umbar M51.36 [facility] [address] [id number] [address] [place] [address], [place] [address] Apr, Degenerative disc disease, l umbar M51.36 [facility] [address] [id number] [address] [place] [address], [place] [address] March, Degenerative disc disease, l umbar M51.36 and Fall (on) (from) other stairs and steps, initial encounter W10.8XXA [facility] [address] [id number] [address] [place] [phone] March, [facility] [address] [id number] [address] [place] [phone] March, [facility] [address] [id number] [address] [place] [phone] March, [facility] [address] [id number] [address] [place] [phone] March, [facility] [address] [id number] [address] [place] [phone] Feb, [facility] [address] [id number] [address] [place] [phone] Jan, Fibromyalgia M79.7 [facility] [address] [id number] [address] [place] [phone] Jan, [facility] [address] [id number] [address] [place] [phone] Dec, Degenerative disc disease, l umbar M51.36 [facility] [address] [facility] [id number] [address] [place] [phone] Dec, [facility] [address] [facility] [id number] [address] [place] [phone] Nov, Degenerative disc disease, l umbar M51.36 ; Fibromyalgia M79.7 ; Restless leg syndrome G25.81 ; HTN (hypertension) I10 ; Hyperlipemia E78.5 ; Chronic tension-type headache, intractable G44.221 and OAB (overactive bladder) N32.81 [facility] [address] [facility] [id number] [address] [place] [phone] Nov, [facility] [address] [facility] [id number] [address] [place] [phone] Oct, [facility] [address] [facility] [id number] [address] [place] [phone] Oct, [id number] [place] [id number] Oct, [facility] [address] [facility] [id number] [address] [place] [phone] Sep, [facility] [address] [facility] [id number] [address] [place] [phone] Aug, [facility] [address] [facility] [id number] [address] [place] [id number] Aug, [facility] [address] [facility] [id number] [address] [place] [phone] Aug, Degenerative disc disease, l umbar M51.36 [facility] [address] [facility] [id number] [address] [place] [address] Aug, Degenerative disc disease, l umbar M51.36 ; Fibromyalgia M79.7 ; Migraines G43.909 ; Hyperlipemia E78.5 ; Muscle spasms of both lower extremities M62.838 ; Chronic tension-type headache, intractable G44.221 ; HTN (hypertension) I10 and Restless leg syndrome G25.81 [facility] [address] [id number] [address] [place] [phone] 29 Jul, 2016 [facility] [address] [id number] [address] [place] [id number] 15 Jul, 2016 [facility] [address] [id number] [address] [place] [phone] Jul, [facility] [address] [id number] [address] [place] [id number] Jun, Chronic tension-type headach e, intractable G44.221 ; Muscle spasms of both lower extremities M62.838 ; Fibromyalgia M79.7 ; Degenerative disc disease, lumbar M51.36 ; Restless leg syndrome G25.81 ; Migraines G43.909 ; Hyperlipemia E78.5 and Anxiety F41.9 [facility] [address] [id number] [address] [place] [phone] Jun, [facility] [address] [id number] [address] [place] [phone] Jun, [facility] [address] [id number] [address] [place] [phone] Jun, [facility] [address] [id number] [address] [place] [phone] Jun, [facility] [address] [id number] [address] [place] [id number] May, Sebaceous cyst L72.3 [facility] [address] [id number] [address] [place] [phone] May, Low back pain M54.5 [facility] [address] [facility] [id number] [address] [place] [phone] Apr, [facility] [address] [id number] [address] [place] [phone] Apr, Fibromyalgia M79.7 [facility] [address] [facility] [id number] [address] [place] [phone] 15 Apr, 2016 Degenerative disc disease, l umbar M51.36 ; Fibromyalgia M79.7 ; Migraines G43.909 ; Hyperlipemia E78.5 ; Restless leg syndrome G25.81 ; Other intractable trigeminal autonomic cephalgia (TAC) G44.091 ; Secondary hypertension I15.9 and Anxiety F41.9 [facility] [address] [place] [id number] [address] [place] [phone] March, Other terminologist (current) dr holloway therapy Z79.899 and HTN (hypertension) I10 [place] [address] [facility] [id number] [address] [place] [phone] March, Fibromyalgia M79.7 [facility] [address] [facility] [id number] [address] [place] [phone] Feb, [facility] [address] [place] [id number] [address] [place] [phone] Feb, [facility] [address] [place] [id number] [address] [place] [phone] Feb, [facility] [address] [place] [id number] [address] [place] [phone] Feb, Hyperlipemia E78.5 [facility] [address] [place] [id number] [address] [place] [phone] Feb, Migraines G43.909 ; Fibromya lgia M79.7 ; Degenerative disc disease, lumbar M51.36 ; Restless leg syndrome G25.81 ; HTN (hypertension) I10 and Tobacco abuse counseling Z71.6 [facility] [address] [facility] [id number] [address] [place] [phone] Feb, [facility] [address] [place] [id number] [address] [place] [phone] Jan, [facility] [address] [place] [id number] [address] [place] [phone] Jan, [place] [address] [id number] [address] [place] [phone] Dec, [facility] [address] [id number] [address] [place] [id number] Dec, HTN (hypertension) I10 ; Deg enerative disc disease, lumbar M51.36 ; Restless leg syndrome G25.81 ; Migraines G43.909 ; Fibromyalgia M79.7 and Other terminologist (current) drug therapy Z79.899 [facility] [address] [id number] [address] [place] [phone] Dec, [facility] [address] [id number] [address] [place] [phone] Nov, [facility] [address] [facility] [id number] [address] [place] [phone] Nov, [facility] [address] [facility] [id number] [address] [place] [phone] Oct, [facility] [address] [id number] [address] [place] [phone] Oct, [facility] [address] [place] [id number] [address] [place] [phone] Oct, [facility] [address] [place] [id number] [address] [place] [phone] Sep, [facility] [address] [facility] [id number] [address] [place] [phone] Sep, Routine gynecological examin ation V72.31 ; Degenerative disc disease, lumbar M51.36 ; Fibromyalgia M79.7 ; Restless leg syndrome G25.81 ; Migraines G43.909 and Well woman exam Z01.419 [facility] [address] [id number] [address] [place] [phone] Sep, [facility] [address] [facility] [id number] [address] [place] [phone] Aug, [facility] [address] [address] Aug, Migraines G43.909 ; Degenera tive disc disease, lumbar M51.36 ; Fibromyalgia M79.7 ; Restless leg syndrome G25.81 and HTN (hypertension) I10 [facility] [address] [phone] Aug, [facility] [address] [address] Aug, [facility] [address] [address] Jul, [facility] [address] [id number] Jul, [facility] [address] [address] Jun, Fibromyalgia 729.1 ; Lumbago 724.2 ; Restless leg syndrome 333.94 ; Migraines 346.90 and Elevated blood pressure (not hypertension) 796.2 [facility] [address] [address] May, Fibromyalgia 729.1 ; Nontoxi c uninodular goiter 241.0 ; Lumbago 724.2 ; Restless leg syndrome 333.94 and Migraines 346.90 [facility] [address] [address] Feb, [facility] [address] [address] Feb, [facility] [address] [address] Jan, [facility] [address] [address] Jan, [facility] [address] [address] Jan, [facility] [address] [id number] [facility] [place] [address] 12 Jan, 2014 [facility] [address] [id number] [address] [place] [address], [place] [address] 04 Jan, 2014 [facility] [address] [id number] [address] [place] [address], [place] [address] Jan, 2014 [facility] [address] [id number] [address] [place] [address], [place] [address] Jan, 2014 [facility] [address] [id number] [address] [place] [address], [place] [address] Jan, 2014 [facility] [address] [id number] [address] [place] [address], [place] [address] Dec, 2014 [facility] [address] [id number] [address] [place] [address], [place] [address] Dec, 2014 [facility] [address] [id number] [address] [place] [address], [place] [address] Dec, 2014 [facility] [address] [id number] [address] [place] [address], [place] [address] Dec, 2014 [facility] [address] [id number] [address] [place] [address], [place] [address] Dec, 2014 [facility] [address] [id number] [address] [place] [address], [place] [address] Dec, 2014 [facility] [address] [id number] [address] [place] [address], [place] [address] Dec, 2014 [facility] [address] [id number] [address] [place] [address], [place] [address] Dec, 2014 [facility] [address] [id number] [address] [place] [address], [place] [address] Dec, 2014 [facility] [address] [id number] [address] [place] [address], [place] [address] 04 Dec, 2014 [facility] [address] [id number] [address] [place] [phone] Dec, [facility] [address] [facility] [id number] [address] [place] [phone] Nov, [facility] [address] [facility] [id number] [address] [place] [phone] Nov, IMMUNIZATIONS No Known Immunizations SOCIAL HISTORY [...]
--- OUTSIDE RECORDS SUMMARY | 2020-02-04 15:04 | XMS REPORT ---
Author Caitie Otero Organization [employer] Address Unknown Phone Unavailable Care Team Providers Care Scales Inspector Name Role Phone CARMELITA ALLEN CP Unavailable [...] Degenerative disc disease, lumbar M51.36 Active Medications No Known Medications Results No Known Results Summary Purpose [employer] Submission
--- OUTSIDE RECORDS SUMMARY | 2020-02-04 15:04 | XMS REPORT ---
Author Caitie Otero [facility] [employer] Address Unknown Phone Unavailable Care Team Providers Care Exercise Science Instructor Name Role Phone CARMELITA ALLEN CP Unavailable [...] Start Date End Date Status Dosage Hydrocodone-Acetaminophen [facility] [address]-67 7.5-325 MG Ora lly 3 times a day Jul 06, 2015 1 tablet as needed Results No Known Results Summary Purpose [employer] Submission
--- OUTSIDE RECORDS SUMMARY | 2020-02-04 15:04 | XMS REPORT ---
Author Caitie Otero [facility] [employer] Address Unknown Phone Unavailable Care Team Providers Care Polishing Wheel Repairer Name Role Phone CARMELITA ALLEN CP Unavailable Allergies No Known Allergies Problems Problem Type Condition Code Onset Dates Condition Statu s Problem Degenerative disc disease, lumbar M51.36 Active Problem Fibromyalgia M79.7 Active Problem Hyperlipemia E78.5 Active Problem HTN (hypertension) I10 Active Problem Well woman exam Z01.419 Active Problem Restless leg syndrome G25.81 Active Problem Migraines G43.909 Active Medications Medication Code System Code Instructions Start Date End Date Status Dosage Hydrocodone-Acetaminophen [facility] [address]-01 7.5-325 MG Ora lly 3 times a day Jul 06, 2015 1 tablet as needed Results No Known Results Summary Purpose [employer] Submission
--- OUTSIDE RECORDS SUMMARY | 2020-02-04 15:04 | XMS REPORT ---
Author Caitie Otero Organization [employer] Address Unknown Phone Unavailable Care Team Providers Care Outside Sales Account Executive Name Role Phone CARMELITA ALLEN CP Unavailable [...] Instructions Start Date End Date Status Dosage Trazodone HCl [facility] [address]-90 100 MG Orally Once a day Jul 05 6 1 tablet at bedtime Results No Known Results Summary Purpose [employer] Submission
--- OUTSIDE RECORDS SUMMARY | 2020-02-04 15:04 | XMS REPORT ---
Author Author Caitie ALLEN Organization [facility] Address [address] [place] [address] Care Team Providers Care Dog Hair Clipper Name Role Phone CARMELITA ALLEN Unavailable PROBLEMS Type Condition ICD9-CM Code [id number] Code Onset Dates Condition S tatus SNOMED Code Problem Restless leg syndrome G25.81 Active 92094937 Problem Hyperlipemia E78.5 Active 1471445 4 Problem Degenerative disc disease, lumbar M51.36 Active 30830775 Problem Well woman exam Z01.419 Active 3103 50952 Problem Migraines G43.909 Active 86978132 Problem Fibromyalgia M79.7 Active 8588616 7 Problem HTN (hypertension) I10 Active 3 4512072 Problem Chronic pain disorder G89.4 Active 122955343 Problem Chronic, continuous use of opioids F11.90 Active 880445954 Problem Chronic tension-type headache, intractable G44.221 Active 958672667 Problem Anxiety F41.9 Active 73512694 Problem OAB (overactive bladder) N32.81 Activ e 561710675 Problem Muscle spasms of both lower extremities M62.838 Active 911481494 ALLERGIES No Information SOCIAL HISTORY Never Assessed [...] History surgery Hospitalization History childbirth Hospitalization History [facility] ER for migraine
--- OUTSIDE RECORDS SUMMARY | 2020-02-04 15:04 | XMS REPORT ---
Author Author Caitie ALLEN Organization [facility] Address [address] [place] [address] Care Team Providers Care Conveyor Attendant Name Role Phone CARMELITA ALLEN Unavailable PROBLEMS Type Condition ICD9-CM Code [id number] Code Onset Dates Condition S tatus SNOMED Code Problem Restless leg syndrome G25.81 Active 56665659 Problem Hyperlipemia E78.5 Active 3711455 4 Problem Degenerative disc disease, lumbar M51.36 Active 02324924 Problem Well woman exam Z01.419 Active 3103 35321 Problem Migraines G43.909 Active 00191694 Problem Fibromyalgia M79.7 Active 1120315 7 Problem HTN (hypertension) I10 Active 3 7774737 Problem Chronic pain disorder G89.4 Active 822711756 Problem Chronic, continuous use of opioids F11.90 Active 539375993 Problem Chronic tension-type headache, intractable G44.221 Active 962888623 Problem Anxiety F41.9 Active 74132791 Problem OAB (overactive bladder) N32.81 Activ e 425763031 Problem Muscle spasms of both lower extremities M62.838 Active 307111429 ALLERGIES No Information SOCIAL HISTORY Never Assessed PLAN OF CARE VITAL SIGNS MEDICATIONS Medication Instructions Dosage Frequency Start Date End Date Duration S tatus Hydrocodone-Acetaminophen 7.5-325 MG Orally ( due Nove 4 ( 4 times a day 1 tablet as needed 6h March, 28 Active RESULTS No Results PROCEDURES No Known procedures IMMUNIZATIONS No Known Immunizations MEDICAL (GENERAL) HISTORY Type Description Date Medical History fibromyalgia Medical History degenerative disk disease Medical History degenerative arthritis Surgical History hysterectomy Surgical History several lymph nodes removed Surgical History tonsillectomy Surgical History tubal ligation Hospitalization History surgery Hospitalization History childbirth Hospitalization History [facility] ER for migraine
--- OUTSIDE RECORDS SUMMARY | 2020-02-04 15:04 | XMS REPORT ---
Author Caitie Otero [facility] eClinicalWorks Address Unknown Phone Unavailable Care Team Providers Care Mangle Press Catcher Name Role Phone CARMELITA ALLEN CP Unavailable [...] Degenerative disc disease, lumbar M51.36 Active Assessment Restless leg syndrome G25.81 Active Assessment HTN (hypertension) I10 Active Assessment Hyperlipemia E78.5 Active Assessment Migraines G43.909 Active Assessment Chronic tension-type headache, intractable G44.221 Active Assessment Fibromyalgia M79.7 Active Assessment Muscle spasms of both lower extremities M62.838 Active Assessment Degenerative disc disease, lumbar M51.36 Active Medications Medication Code System Code Instructions Start Date End Date Status Dosage Lisinopril [facility] 53625249621 10 mg Orally Once a day 1 tablet Meloxicam [facility] 40693757735 15 MG Orally Once a day 1 tablet Hydrocodone-Acetaminophen [facility] [address]-30 7.5-325 MG Ora lly 3 times a day Jul 06, 2015 1 tablet as needed Crestor [facility] [address]-18 10 mg Orally Once a day March 01, 2016 1 tablet Vistaril [facility] [address]-73 25 MG Orally every 8 hrs May 09, 2016 1 capsule as needed Tizanidine HCl [facility] [address]-62 4 MG Orally bid Sep 21, 2015 1 tablet as needed Requip [facility] [address]-80 3 MG Orally Once a day at hs Sep 06, 2016 1 tablet Gabapentin [facility] 67737379931 400 MG TAKE ONE CAPSULE BY MOUTH THREE TIMES DAILY Topamax [facility] [address]-98 100 MG Orally Twice a day Sep 06, 2016 1 tablet Procedures Procedure Coding System Code Date Office Visit, Est Pt., Level 4 CPT-[address] 2015 Vital Signs Date/Time: Sep 06, 2016 Cardiac Monitoring Heart Rate 88 bpm Weight 158 lbs Height 63 in BMI 27.99 Index Blood Pressure Diastolic 82 mmHg Blood Pressure Systolic 132 mmHg Results No Known Results Summary Purpose eClinicalWorks Submission
--- OUTSIDE RECORDS SUMMARY | 2020-02-04 15:04 | XMS REPORT ---
Author Author Caitie ALLEN [facility] Address [address] [place] [address] Care Team Providers Care Rock Crusher Name Role Phone ALEJANDRO CARMELITA Unavailable PROBLEMS Type Condition ICD9-CM Code [id number] Code Onset Dates Condition S tatus SNOMED Code Problem Restless leg syndrome G25.81 Active 27619255 Problem HTN (hypertension) I10 Active 3 7991999 Problem Degenerative disc disease, lumbar M51.36 Active 78603228 Problem Well woman exam Z01.419 Active 3103 73820 Problem Migraines G43.909 Active 19253410 Problem OAB (overactive bladder) N32.81 Activ e 295611477 Problem Muscle spasms of both lower extremities M62.838 Active 705948193 Problem Hyperlipemia E78.5 Active 6522736 4 Problem Fibromyalgia M79.7 Active 0527019 7 Problem Chronic tension-type headache, intractable G44.221 Active 313902186 Problem Anxiety F41.9 Active 05597586 ALLERGIES Substance Reaction Event Type Date Status Amoxicillin hives Drug Allergy Nov, Active tape rash Non Drug Allergy Nov, Active SOCIAL HISTORY No smoking Hx information available PLAN OF CARE Activity Details Follow Up 3 Months, prn Reason:[facility] VITAL SIGNS Height 63 in 2016-12-18 Weight 157.2 lbs 2016-12-18 Temperature 98.1 degrees Fahrenheit 2016-12-18 Heart Rate 84 bpm 2016-12-18 Respiratory Rate 20 2016-12-18 BMI 27.84 kg/m2 2016-12-18 Blood pressure systolic 114 mmHg 2016-12-18 Blood pressure diastolic 88 mmHg 2016-12-18 MEDICATIONS Medication Instructions Dosage Frequency Start Date End Date Duration S tatus Gabapentin 400 MG TAKE ONE CAPSULE BY MOUTH THREE TIMES DAILY 30 Active Topamax 100 MG Orally Twice a day 1 tablet 12h 13 Aug, 2016 Active Lisinopril 10 mg Orally Once a day 1 tablet 24h 30 Active Hydrocodone-Acetaminophen 7.5-325 MG Orally ( due Nove 4 ( 4 times a day 1 tablet as needed 6h Nov, Dec, 28 days Active Requip 3 MG Orally Once a day at hs 1 tablet 13 Aug, 2016 Active Crestor 10 mg Orally Once a day 1 tablet 24h 07 Feb, 2016 Active Meloxicam 15 MG Orally Once a day 1 tablet 24h Active RESULTS Name Result Date Reference Range CBC 2016-12-18 WBC 10.0 3.4-10.8 RBC 5.69 3.77-5.28 Hemoglobin 17.0 11.1-15.9 Hematocrit 51.3 34.0-46.6 MCV 90 79-97 MCH 29.9 26.6-33.0 MCHC 33.1 31.5-35.7 RDW 14.3 12.3-15.4 Platelets 311 150-379 Neutrophils 56 Lymphs 30 Monocytes 10 Eos 3 Basos 1 Neutrophils (Absolute) 5.6 1.4-7.0 Lymphs (Absolute) 3.0 0.7-3.1 Monocytes(Absolute) 1.0 0.1-0.9 Eos (Absolute) 0.3 0.0-0.4 Baso (Absolute) 0.1 0.0-0.2 Immature Granulocytes 0 Immature Grans (Abs) 0.0 0.0-0.1 LIPID PANEL 2016-12-18 Cholesterol, Total 247 100-199 Triglycerides 201 0-149 HDL Cholesterol 44 >39 VLDL Cholesterol Kenny 40 5-40 LDL Cholesterol Calc 163 0-99 Comment: CMP 2016-12-18 Glucose, Serum 79 65-99 BUN 9 6-24 Creatinine, Serum 0.67 0.57-1.00 eGFR If NonAfricn Am 101 >59 eGFR If Africn Am 117 >59 BUN/Creatinine Ratio 13 9-23 Sodium, Serum 141 134-144 Potassium, Serum 4.4 3.5-5.2 Chloride, Serum 100 96-106 Carbon Dioxide, Total 22 18-29 Calcium, Serum 8.9 8.7-10.2 Protein, Total, Serum 7.1 6.0-8.5 Albumin, Serum 4.5 3.5-5.5 Globulin, Total 2.6 1.5-4.5 A/G Ratio 1.7 1.1-2.5 Bilirubin, Total 0.3 0.0-1.2 Alkaline Phosphatase, S 79 39-117 AST (SGOT) 13 0-40 ALT (SGPT) 15 0-32 AMERITOX 2016-12-18 PROCEDURES Procedure Date Ordered Related Diagnosis Body Site No Charge Dec 18, 2016 URINALYSIS, AUTO, W/O SCOPE Dec 18, 2016 Office Visit, Est Pt., Level 4 Dec 18, 2016 COMPREHEN METABOLIC PANEL Dec 18, 2016 COMPLETE CBC W/AUTO DIFF WBC Dec 18, 2016 VENIPUNCT, ROUTINE* Dec 18, 2016 LIPID PANEL Dec 18, 2016 IMMUNIZATIONS No Known Immunizations
--- OUTSIDE RECORDS SUMMARY | 2020-02-04 15:05 | XMS REPORT ---
Author Caitie Otero [facility] eClinicalWorks Address Unknown Phone Unavailable Care Team Providers Care Manager Distribution Center Name Role Phone CARMELITA ALLEN CP Unavailable Allergies, Adverse Reactions, Alerts Substance Reaction Event Type Amoxicillin hives Drug Allergy tape rash Non Drug Allergy Problems Problem Type Condition Code Onset Dates Condition Statu s Assessment Restless leg syndrome G25.81 Active Assessment Fibromyalgia M79.7 Active Assessment Degenerative disc disease, lumbar M51.36 Active Assessment Tobacco abuse counseling Z71.6 Act ramana Assessment HTN (hypertension) I10 Active Problem Fibromyalgia M79.7 Active Problem Restless leg syndrome G25.81 Active Problem Degenerative disc disease, lumbar M51.36 Active Problem Well woman exam Z01.419 Active Assessment Migraines G43.909 Active Problem Migraines G43.909 Active Problem HTN (hypertension) I10 Active Medications Medication Code System Code Instructions Start Date End Date Status Dosage Gabapentin [facility] 96510212591 400 MG Orally Three times a day 1 capsule Lisinopril [facility] [address]-69 10 mg Orally Once a day February 29, 2016 1 tablet Tizanidine HCl [facility] [address]-90 4 MG Orally bid Sep 21, 2015 1 tablet as needed Topamax [facility] [address]-05 50 mg Orally Twice a day February 29, 2016 1 tablet Requip [facility] [address]-77 2 MG Orally Once a day June 17, 2015 1 tablet 1 to 3 hours before bedtime Meloxicam [facility] 39884702644 15 MG Orally Once a day 1 tablet Hydrocodone-Acetaminophen [facility] [address]-16 7.5-325 MG Ora lly 3 times a day Jul 06, 2015 1 tablet as needed Procedures Procedure Coding System Code Date COMPLETE CBC W/AUTO DIFF WBC CPT-4 73295 Apr 2015 COMPREHEN METABOLIC PANEL CPT-4 35449 February 29, 2016 Office Visit, Est Pt., Level 4 CPT-4 42046 A pril 2015 VENIPUNCT, ROUTINE* CPT-4 22652 February 28 16 LIPID PANEL CPT-4 84652 February 29, 2016 Vital Signs Date/Time: February 29, 2016 Temperature 98.4 F Weight 171.2 lbs Height 63 in BMI 30.32 Index Blood Pressure Diastolic 94 mmHg Blood Pressure Systolic 158 mmHg Cardiac Monitoring Heart Rate 76 bpm Results Name Result Date Reference Range Unit Abnormali ty Flag LIPID PANEL ----HDL Cholesterol 38 02067864 >39 mg/dL L ----VLDL Cholesterol Kenny 45 93697568 5-40 mg/dL H ----LDL Cholesterol Calc 145 46116320 0-99 mg/dL H ----Cholesterol, Total 228 46694290 100-199 mg/dL H ----Triglycerides 223 97321707 0-149 mg/dL H CMP ----Globulin, Total 2.5 60330037 1.5-4.5 g/dL ----eGFR If Africn Am 119 81683754 >59 mL/min/1.73 ----eGFR If NonAfricn Am 104 68606532 >59 mL/min/1.73 ----Albumin, Serum 4.5 41421495 3.5-5.5 g/dL ----Sodium, Serum 141 26261251 134-144 mmol/L ----Protein, Total, Serum 7.0 71262804 6.0-8.5 g/dL ----BUN/Creatinine Ratio 20 20160229 9-23 ----Calcium, Serum 9.2 92341234 8.7-10.2 mg/dL ----AST (SGOT) 17 16033470 0-40 IU/L ----Glucose, Serum 95 05773565 65-99 mg/dL ----Alkaline Phosphatase, S 63 48310499 39-117 IU/L ----Bilirubin, Total 0.3 38240315 0.0-1.2 mg/dL ----Creatinine, Serum 0.64 50659719 0.57-1.00 mg/dL ----A/G Ratio 1.8 97499374 1.1-2.5 ----BUN 13 29897693 6-24 mg/dL ----Carbon Dioxide, Total 24 51483019 18-29 mmol/L ----ALT (SGPT) 20 05165594 0-32 IU/L ----Potassium, Serum 4.3 71022981 3.5-5.2 mmol/L ----Chloride, Serum 103 49619868 97-108 mmol/L ROUTINE VENIPUNCTURE CBC ----MCHC 33.9 26494422 31.5-35.7 g/dL ----MCH 29.7 19022708 26.6-33.0 pg ----Platelets 259 72550848 150-379 x10E3/uL ----RDW 14.1 57771168 12.3-15.4 % ----Immature Granulocytes 0 12281334 % ----Immature Grans (Abs) 0.0 67431779 0.0-0.1 x10E3/uL ----Lymphs 35 78312195 % ----Monocytes 9 55355265 % ----Neutrophils 51 54237837 % ----Neutrophils (Absolute) 4.9 73407542 1.4-7.0 x10E3/uL ----Hematocrit 48.1 28209724 34.0-46.6 % H ----Lymphs (Absolute) 3.3 17453857 0.7-3.1 x10E3/uL H ----MCV 88 59573166 79-97 fL ----RBC 5.49 00599447 3.77-5.28 x10E6/uL H ----Eos 4 89013975 % ----Basos 1 33041512 % ----Hemoglobin 16.3 12056995 11.1-15.9 g/dL H ----Baso (Absolute) 0.1 85769617 0.0-0.2 x10E3/uL ----WBC 9.5 73331785 3.4-10.8 x10E3/uL ----Monocytes(Absolute) 0.8 67772133 0.1-0.9 x10E3/uL ----Eos (Absolute) 0.4 35552793 0.0-0.4 x10E3/uL Summary Purpose eClinicalWorks Submission
--- OUTSIDE RECORDS SUMMARY | 2020-02-04 15:05 | XMS REPORT ---
Author Caitie Otero [facility] eClinicalWorks Address Unknown Phone Unavailable Care Team Providers Care Program Support Specialist Name Role Phone CARMELITA ALLEN CP Unavailable Allergies No Known Allergies Problems Problem Type Condition ICD-9 Code Onset Dates Condition Statu s Problem Fibromyalgia 729.1 Active Problem Restless leg syndrome 333.94 Active Problem Elevated blood pressure (not hypertension) 796.2 Active Problem Lumbago 724.2 Active Problem Nontoxic uninodular goiter 241.0 A ctive Problem Migraines 346.90 Active Problem Displacement of lumbar intervertebral disc without mye lopathy 722.10 Active Medications Medication Code System Code Instructions Start Date End Date Status Dosage Hydrocodone-Acetaminophen [facility] [address]-84 7.5-325 MG Ora lly 3 times a day Jul 06, 2015 1 tablet as needed Results No Known Results Summary Purpose eClinicalWorks Submission
--- OUTSIDE RECORDS SUMMARY | 2020-02-04 15:05 | XMS REPORT ---
Author Caitie Otero [facility] eClinicalWorks Address Unknown Phone Unavailable Care Team Providers Care Front Maker Lockstitch Name Role Phone CARMELITA ALLEN CP Unavailable Allergies, Adverse Reactions, Alerts Substance Reaction Event Type Amoxicillin hives Drug Allergy tape rash Non Drug Allergy Problems Problem Type Condition Code Onset Dates Condition Statu s Assessment Restless leg syndrome G25.81 Active Assessment Degenerative disc disease, lumbar M51.36 Active Assessment Fibromyalgia M79.7 Active Assessment Well woman exam Z01.419 Active Assessment Migraines G43.909 Active Problem Fibromyalgia M79.7 Active Problem Restless leg syndrome G25.81 Active Problem Degenerative disc disease, lumbar M51.36 Active Problem Well woman exam Z01.419 Active Assessment Routine gynecological examination V72.31 Active Problem Migraines G43.909 Active Problem HTN (hypertension) I10 Active Medications Medication Code System Code Instructions Start Date End Date Status Dosage Imitrex [facility] [address]-93 100 mg Jan 04, 2015 1 ta blet by Oral route 1 time per day and repeat once more after 2 hours if headache recurs PRN for bad headaches. Topamax [facility] [address]-39 50 mg Jan 04, 2015 1 Tab let by Po route 1 time per day for headache daily med Meloxicam [facility] [address]-54 15 MG Once a day TAKE ONE TABLET BY MOUTH DAILY Tizanidine HCl [facility] [address]-85 4 MG Orally bid Sep 21, 2015 1 tablet as needed Gabapentin [facility] [address]-32 400 MG Orally Three times a day Sep 29, 2015 1 capsule Meloxicam [facility] [address]-53 15 MG Orally Once a day Sep 29, 2015 Oct 29, 2015 1 tablet Gabapentin [facility] [address]-55 400 MG Three times a day Jan 04, 2015 1 capsule by Oral route 3 times per day for back pain Hydrocodone-Acetaminophen [facility] [address]-24 7.5-325 MG Ora lly 3 times a day Jul 06, 2015 1 tablet as needed Requip [facility] [address]-73 2 MG Orally Once a day June 17, 2015 1 tablet 1 to 3 [place] [address]-92 2 MG Orally Once a day Sep 29, 2015 1 tablet 1 to 3 hours before bedtime Procedures Procedure Coding System Code Date TRICHOMONAS VAGIN, DIR PROBE CPT-4 62418 Oct 05, 2015 CULTURE, BACTERIA, OTHER CPT-4 24612 Oct 05, 2015 Preventive Care Est Pt. Age 40-64 CPT-4 75058 Oct 05, 2015 No Charge CPT-4 91064 Oct 05, 2015 SPECIMEN HANDLING CPT-4 77466 Oct 05, 2015 Vital Signs Date/Time: Oct 05, 2015 Temperature 98.3 F Weight 157.0 lbs Height 63 in BMI 27.81 Index Blood Pressure Diastolic 88 mmHg Blood Pressure Systolic 140 mmHg Cardiac Monitoring Heart Rate 100 bpm Results Name Result Date Reference Range Unit Abnormali ty Flag TRICHOMONAS (IN HOUSE) Summary Purpose eClinicalWorks Submission
--- OUTSIDE RECORDS SUMMARY | 2020-02-04 15:05 | XMS REPORT ---
Author Author Caitie ALLEN [facility] Address [address] [place] [address] Care Team Providers Care Market Research Analyst Name Role Phone CARMELITA ALLEN Unavailable PROBLEMS Type Condition ICD9-CM Code [id number] Code Onset Dates Condition S tatus SNOMED Code Problem HTN (hypertension) I10 Active 3 3020263 Problem Restless leg syndrome G25.81 Active 34613322 Problem Migraines G43.909 Active 64393708 Problem Well woman exam Z01.419 Active 3103 30098 Problem Chronic tension-type headache, intractable G44.221 Active 359868604 Problem Muscle spasms of both lower extremities M62.838 Active 450085359 Problem Degenerative disc disease, lumbar M51.36 Active 27708608 Problem Fibromyalgia M79.7 Active 9332433 7 Problem Anxiety F41.9 Active 90186344 Problem Hyperlipemia E78.5 Active 2865358 4 ALLERGIES Unknown Allergies SOCIAL HISTORY No smoking Hx information available PLAN OF CARE VITAL SIGNS MEDICATIONS Medication Instructions Dosage Frequency Start Date End Date Duration S tatus Restoril 15 MG Orally Once a day 1 capsule at bedtime as needed 24h Jul, Active RESULTS No Results PROCEDURES No Known procedures IMMUNIZATIONS No Known Immunizations
--- OUTSIDE RECORDS SUMMARY | 2020-02-04 15:05 | XMS REPORT ---
Author Author Caitie Albert Organization [facility] Address [address] [place] [address] Care Team Providers Care Computer Programming Supervisor Name Role Phone Roosevelt CARMELITA Unavailable PROBLEMS Type Condition ICD9-CM Code [id number] Code Onset Dates Condition S tatus SNOMED Code Problem Migraines G43.909 Active 25928267 Problem Anxiety F41.9 Active 57311539 Problem Hyperlipemia E78.5 Active 9650686 4 Problem Type 2 diabetes mellitus wit h diabetic polyneuropathy, without long-term current use of insulin E11.42 Active 93759 006 Problem Type 2 diabetes mellitus wit h hyperglycemia, without long-term current use of insulin E11.65 Active 65934537 Problem OAB (overactive bladder) N32.81 Activ e 772951625 Problem Muscle spasms of both lower extremities M62.838 Active 958256928 Problem Chronic, continuous use of opioids F11.90 Active 975232796 Problem Chronic pain disorder G89.4 Active 863733458 Problem Fibromyalgia M79.7 Active 2994896 7 Problem Restless leg syndrome G25.81 Active 28824189 Problem Degenerative disc disease, lumbar M51.36 Active 43458075 Problem Vitamin D deficiency E55.9 Active 11438151 Problem HTN (hypertension) I10 Active 3 7019174 ALLERGIES No Information ENCOUNTERS Encounter Location Date Diagnosis [facility] [address] [facility] [id number] [address] [place] [phone] Apr, [facility] [address] [facility] [id number] [address] [place] [id number] 29 Jan, 2018 [facility] [address] [facility] [id number] [address] [place] [address] Jan, [facility] [address] [facility] [id number] [address] [place] [address] Jan, Type 2 diabetes mellitus wit h diabetic polyneuropathy, without long-term current use of insulin E11.42 ; Type 2 diabetes mellitus with hyperglycemia, without long-term current use of insulin E11.65 ; Degenerative disc disease, lumbar M51.36 ; Fibromyalgia M79.7 ; Restless leg syndrome G25.81 ; HTN (hypertension) I10 ; Hyperlipemia E78.5 ; Anxiety F41.9 ; Migraines G43.909 and High risk medication use Z79.899 [place] [address] [address] Dec, Chronic pain disorder G89.4 [place] [address] [address] Nov, Chronic pain disorder G89.4 [place] [address] [address] Nov, [place] [address] [address] Nov, Type 2 diabetes mellitus wit h hyperglycemia, without long-term current use of insulin E11.65 ; HTN (hypertension) I10 ; Hyperlipemia E78.5 ; Restless leg syndrome G25.81 ; Fibromyalgia M79.7 ; Chronic tension-type headache, intractable G44.221 ; Migraines G43.909 ; Chronic pain disorder G89.4 and Overweight (BMI 25.0-29.9) E66.3 [place] [address] [address] Nov, [place] [address] [address] Oct, Degenerative disc disease, l umbar M51.36 [place] [address] [address] Sep, Degenerative disc disease, l umbar M51.36 [place] [address] [address] Sep, [place] [address] [place] [id number] [address] [place] [address] Aug, Degenerative disc disease, l umbar M51.36 [place] [address] [address] Aug, Fall from height of greater than 3 feet W19.XXXA ; Hematoma of left hip, subsequent encounter S70.02XD ; Fibromyalgia M79.7 ; Muscle spasms of both lower extremities M62.838 ; Anxiety F41.9 ; Degenerative disc disease, lumbar M51.36 ; Chronic pain disorder G89.4 and Chronic, continuous use of opioids F11.90 [place] [address] [address] Jul, [place] [address] [address] Jul, Degenerative disc disease, l umbar M51.36 [place] [address] [address] Jun, Degenerative disc disease, l umbar M51.36 [place] [address] [address] May, Degenerative disc disease, l umbar M51.36 [place] [address] [address] May, [place] [address] [address] Apr, Degenerative disc disease, l umbar M51.36 [place] [address] [place] [id number] [address] [place] [address] Apr, Degenerative disc disease, l umbar M51.36 [place] [address] [place] [id number] [address] [place] [address] March, Degenerative disc disease, l umbar M51.36 and Fall (on) (from) other stairs and steps, initial encounter W10.8XXA [place] [address] [id number] [address] [place] [address] March, [facility] [address] [facility] [id number] [address] [place] [phone] March, [facility] [address] [facility] [id number] [address] [place] [address] March, [facility] [address] [facility] [id number] [address] [place] [address] March, [facility] [address] [facility] [id number] [address] [place] [address] Feb, [facility] [address] [facility] [id number] [address] [place] [address] Jan, Fibromyalgia M79.7 [facility] [address] [facility] [id number] [address] [place] [address] Jan, [facility] [address] [facility] [id number] [address] [place] [address] Dec, Degenerative disc disease, l umbar M51.36 [facility] [address] [facility] [id number] [address] [place] [address] Dec, [facility] [address] [facility] [id number] [address] [place] [address] Nov, Degenerative disc disease, l umbar M51.36 ; Fibromyalgia M79.7 ; Restless leg syndrome G25.81 ; HTN (hypertension) I10 ; Hyperlipemia E78.5 ; Chronic tension-type headache, intractable G44.221 and OAB (overactive bladder) N32.81 [facility] [address] [facility] [id number] [address] [place] [address] Nov, [facility] [address] [facility] [id number] [address] [place] [address] Oct, [facility] [address] [facility] [id number] [address] [place] [address] Oct, [place] [id number] [place], [place] [address]David S [id number] Oct, [facility] [address] [facility] [id number] [address] [place] [address] Sep, [facility] [address] [facility] [id number] [address] [place] [phone] Aug, [facility] [address] [facility] [id number] [address] [place] [address] Aug, [facility] [address] [facility] [id number] [address] [place] [address] Aug, Degenerative disc disease, l umbar M51.36 [place] [address] [place] [id number] [address] [place] [address] Aug, Degenerative disc disease, l umbar M51.36 ; Fibromyalgia M79.7 ; Migraines G43.909 ; Hyperlipemia E78.5 ; Muscle spasms of both lower extremities M62.838 ; Chronic tension-type headache, intractable G44.221 ; HTN (hypertension) I10 and Restless leg syndrome G25.81 [facility] [address] [facility] [id number] [address] [place] [address] Jul, [facility] [address] [place] [id number] [address] [place] [address] Jul, [facility] [address] [facility] [id number] [address] [place] [address] Jul, [facility] [address] [place] [id number] [address] [place] [address] Jun, Chronic tension-type headach e, intractable G44.221 ; Muscle spasms of both lower extremities M62.838 ; Fibromyalgia M79.7 ; Degenerative disc disease, lumbar M51.36 ; Restless leg syndrome G25.81 ; Migraines G43.909 ; Hyperlipemia E78.5 and Anxiety F41.9 [facility] [address] [facility] [id number] [address] [place] [address] Jun, [facility] [address] [id number] [address] [place] [address] Jun, [facility] [address] [id number] [address] [place] [address] Jun, [facility] [address] [id number] [address] [place] [address] Jun, [facility] [address] [id number] [address] [place] [address] May, Sebaceous cyst L72.3 [facility] [address] [facility] [id number] [address] [place] [address] May, Low back pain M54.5 [facility] [address] [facility] [id number] [address] [place] [address] Apr, [facility] [address] [facility] [id number] [address] [place] [address] Apr, Fibromyalgia M79.7 [facility] [address] [facility] [id number] [address] [place] [address] Apr, Degenerative disc disease, l umbar M51.36 ; Fibromyalgia M79.7 ; Migraines G43.909 ; Hyperlipemia E78.5 ; Restless leg syndrome G25.81 ; Other intractable trigeminal autonomic cephalgia (TAC) G44.091 ; Secondary hypertension I15.9 and Anxiety F41.9 [facility] [address] [facility] [id number] [address] [place] [address] March, Other medical terminologist (current) dr amie potter Z79.899 and HTN (hypertension) I10 [facility] [address] [facility] [id number] [address] [place] [address] March, Fibromyalgia M79.7 [facility] [address] [facility] [id number] [address] [place] [address] Feb, [facility] [address] [facility] [id number] [address] [place] [address] Feb, [facility] [address] [facility] [id number] [address] [place] [address] Feb, [facility] [address] [facility] [id number] [address] [place] [address] Feb, Hyperlipemia E78.5 [facility] [address] [facility] [id number] [address] [place] [address] Feb, Migraines G43.909 ; Fibromya lgia M79.7 ; Degenerative disc disease, lumbar M51.36 ; Restless leg syndrome G25.81 ; HTN (hypertension) I10 and Tobacco abuse counseling Z71.6 [facility] [address] [facility] [id number] [address] [place] [address] Feb, [facility] [address] [facility] [id number] [address] [place] [address] Jan, [facility] [address] [facility] [id number] [address] [place] [address] Jan, [facility] [address] [facility] [id number] [address] [place] [address] Dec, [facility] [address] [facility] [id number] [address] [place] [address] Dec, Degenerative disc disease, l umbar M51.36 ; Restless leg syndrome G25.81 ; Migraines G43.909 ; HTN (hypertension) I10 ; Fibromyalgia M79.7 and Other residential (current) drug therapy Z79.899 [facility] [address] [facility] [id number] [address] [place] [address] Dec, [facility] [address] [facility] [id number] [address] [place] [address] Nov, [facility] [address] [facility] [id number] [address] [place] [phone] Nov, [facility] [address] [facility] [id number] [address] [place] [address] Oct, [facility] [address] [id number] [address] [place] [address] Oct, [facility] [address] [id number] [address] [place] [address] Oct, [facility] [address] [id number] [address] [place] [id number] Sep, [facility] [address] [facility] [id number] [address] [place] [address] Sep, Routine gynecological examin ation V72.31 ; Degenerative disc disease, lumbar M51.36 ; Fibromyalgia M79.7 ; Restless leg syndrome G25.81 ; Migraines G43.909 and Well woman exam Z01.419 [facility] [address] [id number] [address] [place] [address] Sep, [facility] [address] [facility] [id number] [address] [place] [id number] Aug, [facility] [address] [id number] [address] [place] [address] Aug, Migraines G43.909 ; Degenera tive disc disease, lumbar M51.36 ; Fibromyalgia M79.7 ; Restless leg syndrome G25.81 and HTN (hypertension) I10 [facility] [address] [facility] [id number] [address] [place] [address] Aug, [facility] [address] [id number] [address] [place] [address] Aug, [facility] [address] [id number] [address] [place] [address] Jul, [facility] [address] [facility] [id number] [address] [place] [address] Jul, [facility] [address] [facility] [id number] [address] [place] [address] Jun, Fibromyalgia 729.1 ; Lumbago 724.2 ; Restless leg syndrome 333.94 ; Migraines 346.90 and Elevated blood pressure (not hypertension) 796.2 [facility] [address] [id number] [address] [place] [address] May, Fibromyalgia 729.1 ; Nontoxi c uninodular goiter 241.0 ; Lumbago 724.2 ; Restless leg syndrome 333.94 and Migraines 346.90 [facility] [address] [id number] [address] [place] [address] Feb, [facility] [address] [id number] [address] [place] [id number] Feb, [facility] [address] [id number] [address] [place] [address] Jan, [facility] [address] [facility] [id number] [address] [place] [id number] Jan, [facility] [address] [facility] [id number] [address] [place] [address] Jan, [facility] [address] [id number] [address] [place] [address] Jan, [facility] [address] [facility] [id number] [address] [place] [address] Jan, [facility] [address] [facility] [id number] [address] [place] [address] Jan, [facility] [address] [facility] [id number] [address] [place] [address] Jan, [facility] [address] [id number] [address] [place] [address] Jan, [facility] [address] [facility] [id number] [address] [place] [phone] Dec, [facility] [address] [facility] [id number] [address] [place] [address] Dec, [facility] [address] [facility] [id number] [address] [place] [address] Dec, [facility] [address] [id number] [address] [place] [address] Dec, 2014 [facility] [address] [id number] [address] [place] [id number] Dec, [facility] [address] [id number] [address] [place] [id number] Dec, 2014 [facility] [address] [id number] [address] [place] [address] Dec, 2014 [facility] [address] [id number] [address] [place] [phone] Dec, 2014 [facility] [address] [id number] [address] [place] [phone] Dec, 2014 [facility] [address] [id number] [address] [place] [phone] Dec, 2014 [facility] [address] [id number] [address] [place] [address] Dec, [facility] [address] [id number] [address] [place] [address] Nov, [facility] [address] [id number] [address] [place] [address] Nov, IMMUNIZATIONS No Known Immunizations SOCIAL HISTORY Never Assessed REASON FOR VISIT Controlled Med Refill PLAN OF CARE VITAL SIGNS MEDICATIONS Medication Instructions Dosage Frequency Start Date End Date Duration S tatus Hydrocodone-Acetaminophen 10-325 MG Orally every 6 hrs 1 tablet as needed 6h Apr, May, 28 days Active RESULTS No Results [...] History surgery Hospitalization History childbirth Hospitalization History [facility] ER for migraine
--- OUTSIDE RECORDS SUMMARY | 2020-02-04 15:05 | XMS REPORT ---
Author Author Caitie ALLEN [facility] Address [address] [place] [address] Care Team Providers Care Proj Engineer Name Role Phone CARMELITA ALLEN Unavailable PROBLEMS Type Condition ICD9-CM Code [id number] Code Onset Dates Condition S tatus SNOMED Code Problem Migraines G43.909 Active 11149530 Problem Fibromyalgia M79.7 Active 0007184 7 Problem Restless leg syndrome G25.81 Active 04774693 Problem Well woman exam Z01.419 Active 3103 22237 Problem HTN (hypertension) I10 Active 3 3332936 Problem OAB (overactive bladder) N32.81 Activ e 313374261 Problem Chronic tension-type headache, intractable G44.221 Active 436749711 Problem Hyperlipemia E78.5 Active 4269085 4 Problem Degenerative disc disease, lumbar M51.36 Active 79266044 Problem Muscle spasms of both lower extremities M62.838 Active 554259630 Problem Anxiety F41.9 Active 12588259 ALLERGIES Unknown Allergies SOCIAL HISTORY No smoking Hx information available PLAN OF CARE VITAL SIGNS MEDICATIONS Unknown Medications RESULTS No Results PROCEDURES No Known procedures IMMUNIZATIONS No Known Immunizations
--- OUTSIDE RECORDS SUMMARY | 2020-02-04 15:05 | XMS REPORT ---
Author Caitie Otero [facility] eClinicalWorks Address Unknown Phone Unavailable Care Team Providers Care Associate Trainer Name Role Phone CARMELITA ALLEN CP Unavailable [...] Start Date End Date Status Dosage Hydrocodone-Acetaminophen [facility] [address]-42 7.5-32 5 MG Orally ( due Nove 4 ( 4 times a day Jul 06, 2015 Oct 26, 2016 1 tablet as need ed Results No Known Results Summary Purpose eClinicalWorks Submission
--- OUTSIDE RECORDS SUMMARY | 2020-02-04 15:05 | XMS REPORT ---
Author Author Caitie [facility] Address [address] [place] [address] Care Team Providers Care Tobacco Grower Name Role Phone MU MAYA Unavailable PROBLEMS Type Condition ICD9-CM Code [id number] Code Onset Dates Condition S tatus SNOMED Code Problem Migraines G43.909 Active 27012955 Problem Fibromyalgia M79.7 Active 7931688 7 Problem Restless leg syndrome G25.81 Active 11928848 Problem Well woman exam Z01.419 Active 3103 88633 Problem HTN (hypertension) I10 Active 3 8007013 Problem OAB (overactive bladder) N32.81 Activ e 095966166 Problem Chronic tension-type headache, intractable G44.221 Active 933365873 Problem Hyperlipemia E78.5 Active 6787824 4 Problem Degenerative disc disease, lumbar M51.36 Active 88059370 Problem Muscle spasms of both lower extremities M62.838 Active 054016600 Problem Anxiety F41.9 Active 19916903 ALLERGIES Unknown Allergies SOCIAL HISTORY No smoking Hx information available PLAN OF CARE VITAL SIGNS MEDICATIONS Medication Instructions Dosage Frequency Start Date End Date Duration S tatus Hydrocodone-Acetaminophen 7.5-325 MG Orally ( due Nove 4 ( 4 times a day 1 tablet as needed 6h Oct, Nov, 27 days Active RESULTS No Results PROCEDURES No Known procedures IMMUNIZATIONS No Known Immunizations
--- OUTSIDE RECORDS SUMMARY | 2020-02-04 15:05 | XMS REPORT ---
Author Caitie Otero [facility] eClinicalWorks Address Unknown Phone Unavailable Care Team Providers Care Senior Instructor Name Role Phone CARMELITA ALLEN CP [...]
--- OUTSIDE RECORDS SUMMARY | 2020-02-04 15:05 | XMS REPORT ---
Author Caitie Otero [facility] eClinicalWorks Address Unknown Phone Unavailable Care Team Providers Care Literacy Coordinator Name Role Phone CARMELITA ALLEN Unavailable Allergies No Known Allergies Problems Problem Type Condition Code Onset Dates Condition Statu s Problem Fibromyalgia M79.7 Active Problem Restless leg syndrome G25.81 Active Problem Degenerative disc disease, lumbar M51.36 Active Problem Migraines G43.909 Active Problem HTN (hypertension) I10 Active Medications Medication Code System Code Instructions Start Date End Date Status Dosage Gabapentin [facility] [address]-24 400 MG Orally Three times a day Sep 29, 2015 1 capsule Meloxicam [facility] [address]-08 15 MG Orally Once a day Sep 29, 2015 Oct 29, 2015 1 tablet Requip [facility] [address]-83 2 MG Orally Once a day Sep 29, 2015 1 tablet 1 to 3 hours before bedtime Results No Known Results Summary Purpose eClinicalWorks Submission
--- OUTSIDE RECORDS SUMMARY | 2020-02-04 15:05 | XMS REPORT ---
Author Caitie Otero [facility] eClinicalWorks Address Unknown Phone Unavailable Care Team Providers Care Barrel Builder Name Role Phone CARMELITA ALLEN CP Unavailable Allergies, Adverse Reactions, Alerts Substance Reaction Event Type Amoxicillin hives Drug Allergy tape rash Non Drug Allergy Problems Problem Type Condition Code Onset Dates Condition Statu s Problem Well woman exam Z01.419 Active Assessment Sebaceous cyst L72.3 Active Problem Hyperlipemia E78.5 Active Problem Degenerative disc disease, lumbar M51.36 Active Problem Anxiety F41.9 Active Problem Migraines G43.909 Active Problem HTN (hypertension) I10 Active Problem Fibromyalgia M79.7 Active Problem Restless leg syndrome G25.81 Active Medications Medication Code System Code Instructions Start Date End Date Status Dosage Requip [facility] [address]-91 2 MG Orally Once a day June 17, 2015 1 tablet 1 to 3 hours before bedtime Meloxicam [facility] 53860091220 15 MG Orally Once a day 1 tablet Hydrocodone-Acetaminophen [facility] [address]-31 7.5-325 MG Ora lly 3 times a day Jul 06, 2015 1 tablet as needed Lisinopril [facility] 22039877556 10 mg Orally Once a day [address] [facility] 37853110507 400 MG TAKE ONE CAPSULE BY MOUTH THREE TIMES DAILY Vistaril [facility] [address]-51 25 MG Orally every 8 hrs May 09, 2016 1 capsule as needed Tizanidine HCl [facility] [address]-76 4 MG Orally bid Sep 21, 2015 1 tablet as needed Topamax [facility] 17387065253 50 mg Orally Twice a day [address] [facility] [address]-32 10 mg Orally Once a day March 01, 2016 1 tablet Procedures Procedure Coding System Code Date Office Visit, Est Pt., Level 3 CPT-4 21428 J [email or web address] Vital Signs Date/Time: June 15, 2016 Cardiac Monitoring Heart Rate 103 bpm Weight 159.8 lbs Height 63 in Blood Pressure Diastolic 85 mmHg Blood Pressure Systolic 140 mmHg Results No Known Results Summary Purpose [employer] Submission
--- OUTSIDE RECORDS SUMMARY | 2020-02-04 15:05 | XMS REPORT ---
Author Author Caitie ALLEN Organization [employer] Address Unknown Phone Unavailable Care Team Providers Care Tape Fastener Machine Operator Name Role Phone CARMELITA ALLEN CP Unavailable [...]
--- OUTSIDE RECORDS SUMMARY | 2020-02-04 15:05 | XMS REPORT ---
Author Author Caitie ALLEN [facility] Address [address] [place] [address] Care Team Providers Care Business Objects Developer Name Role Phone CARMELITA ALLEN Unavailable PROBLEMS Type Condition ICD9-CM Code ZOM58-NZ Code Onset Dates Condition S tatus SNOMED Code Problem Restless leg syndrome G25.81 Active 35266183 Problem HTN (hypertension) I10 Active 3 5399156 Problem Degenerative disc disease, lumbar M51.36 Active 64527424 Problem Well woman exam Z01.419 Active 3103 63976 Problem Migraines G43.909 Active 85520766 Problem OAB (overactive bladder) N32.81 Activ e 598411514 Problem Muscle spasms of both lower extremities M62.838 Active 864943970 Problem Hyperlipemia E78.5 Active 3803498 4 Problem Fibromyalgia M79.7 Active 4005689 7 Problem Chronic tension-type headache, intractable G44.221 Active 258324412 Problem Anxiety F41.9 Active 11662282 ALLERGIES Unknown Allergies SOCIAL HISTORY No smoking Hx information available PLAN OF CARE VITAL SIGNS MEDICATIONS Unknown Medications RESULTS No Results PROCEDURES No Known procedures IMMUNIZATIONS No Known Immunizations
--- OUTSIDE RECORDS SUMMARY | 2020-02-04 15:05 | XMS REPORT | Continuity of Care Document ---
Author Organization Unknown Address Unknown Phone Unavailable Allergies Active Description Code Type Severity Reaction Onset Reported/Identified Relationship to Patient Clinical Status Yes Penicillins [id number] Drug Aller gy Unknown HIVES 01/12/2013 Yes amoxicillin Drug Allergy N/A N/A 12/23/2014 Medications There is no data. 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 12/23/2014 ED SINGER APRN R 722.10 DISPLACEMENT OF LUMBAR INTERVERTEBRAL DISC WITHOUT MYE LOPATHY 12/23/2014 ED SINGER APRN R 724.2 LUMBAGO 02/07/2018 Ot 592.1 CALC ULUS OF URETER 02/07/2018 Ot V72.83 EXA M PRE- OPERATIVE NEC 02/10/2018 Ot 592.1 CALC ULUS OF URETER 02/10/2018 Ot V72.83 EXA M PRE- OPERATIVE NEC 02/13/2018 Ot 592.1 CALC ULUS OF URETER 02/13/2018 Ot V72.83 EXA M PRE- OPERATIVE NEC 02/14/2018 SONYA QUARLES APRN Ot M48.061 SPINAL STENOSIS, LUMBAR REGION WITHOUT N 02/14/2018 SONYA QUARLES APRN Ot M51.27 OTHER INTERVERTEBRAL DISC DISPLACEMENT, 02/14/2018 SONYA QUARLES APRN Ot M51.36 OTHER INTERVERTEBRAL DISC DEGENERATION, 02/14/2018 QUARLES, SONYA R SPOOL WINDER Ot M48.061 SPINAL STENOSIS, LUMBAR REGION WITHOUT N 02/14/2018 QUARLES, SONYA R SPOOL WINDER Ot M51.27 OTHER INTERVERTEBRAL DISC DISPLACEMENT, 02/14/2018 QUARLES, SONYA R SPOOL WINDER Ot M51.36 OTHER INTERVERTEBRAL DISC DEGENERATION, 09/22/2018 QUARLES, SONYA R SPOOL WINDER Ot M48.061 SPINAL STENOSIS, LUMBAR REGION WITHOUT N 09/22/2018 QUARLES, SONYA R SPOOL WINDER Ot M51.27 OTHER INTERVERTEBRAL DISC DISPLACEMENT, 09/22/2018 QUARLES, SONYA R SPOOL WINDER Ot M51.36 OTHER INTERVERTEBRAL DISC DEGENERATION, 08/21/2019 AIDA COPE FIRER LOCOMOTIVE CRANE Ot R07.89 OTHER CHEST PAIN 08/21/2019 AIDA COPE FIRER LOCOMOTIVE CRANE Ot R07.89 OTHER CHEST PAIN 11/06/2019 QUARLES, SONYA R SPOOL WINDER Ot M48.061 SPINAL STENOSIS, LUMBAR REGION WITHOUT N 11/06/2019 QUARLES SONYA R SPOOL WINDER Ot M51.27 OTHER INTERVERTEBRAL DISC DISPLACEMENT, 11/06/2019 QUARLES, SONYA R SPOOL WINDER Ot M51.36 OTHER INTERVERTEBRAL DISC DEGENERATION, 11/06/2019 AIDA COPE FIRER LOCOMOTIVE CRANE Ot R07.89 OTHER CHEST PAIN 11/13/2019 QUARLES, SONYA R SPOOL WINDER Ot M48.061 SPINAL STENOSIS, LUMBAR REGION WITHOUT N 11/13/2019 QUARLES, SONYA R SPOOL WINDER Ot M51.27 OTHER INTERVERTEBRAL DISC DISPLACEMENT, 11/13/2019 QUARLES, SONYA R SPOOL WINDER Ot M51.36 OTHER INTERVERTEBRAL DISC DEGENERATION, 11/13/2019 PRISCA AIDA FIRER LOCOMOTIVE CRANE Ot R07.89 OTHER CHEST PAIN 11/16/2019 SULAIMAN DUMONT, LEOPOLDO Bello Ot J43.9 EMPHYSEMA, UNSPECIFIED 11/16/2019 LEOPOLDO HILARIO MD Ot R22.1 LOCALIZED SWELLING, MASS AND LUMP, NECK 11/26/2019 LEOPOLDO HILARIO MD Ot J43.9 EMPHYSEMA, UNSPECIFIED 11/26/2019 LEOPOLDO HILARIO MD Ot R22.1 LOCALIZED SWELLING, MASS AND LUMP, NECK 01/12/2020 QUARLES, SONYA R SPOOL WINDER Ot M48.061 SPINAL STENOSIS, LUMBAR REGION WITHOUT N 01/12/2020 QUARLES, SONYA R SPOOL WINDER Ot M51.27 OTHER INTERVERTEBRAL DISC DISPLACEMENT, 01/12/2020 SONYA QUARLES NIKIA Ot M51.36 OTHER INTERVERTEBRAL DISC DEGENERATION, 01/12/2020 AIDA COPE FIRER LOCOMOTIVE CRANE Ot R07.89 OTHER CHEST PAIN 01/12/2020 LEOPOLDO HILARIO MD Ot J43.9 EMPHYSEMA, UNSPECIFIED 01/12/2020 LEOPOLDO HILARIO MD Ot R22.1 LOCALIZED SWELLING, MASS AND LUMP, NECK 01/14/2020 RUTHUMAIR NIKIA Ot S69.91XA UNSP INJURY OF RIGHT WRIST, HAND AND FIN 01/14/2020 RUTHUMAIR NIKIA Ot X58.XXXA EXPOSURE TO OTHER SPECIFIED FACTORS, INI Procedures There is no data. Results Test Result Range THYROID ANALYZER - 02/07/18 11:11 TSH 2.32 mIU/L NRG VITAMIN D, 25-H - 02/07/18 11:11 VITAMIN D,25-OH,TOTAL,IA 15 ng/mL 30-10 0 VITAMIN D, 25-H - 06/19/18 10:58 VITAMIN D,25-OH,TOTAL,IA 34 ng/mL 30-10 0 CBC - 08/08/18 12:24 WHITE BLOOD CELL COUNT 11.6 Thousand/uL 3.8-10.8 RED BLOOD CELL COUNT 5.31 Million/uL 3.8 0-5.10 HEMOGLOBIN 16.0 g/dL 11.7-15.5 HEMATOCRIT 47.0 % 35.0-45.0 MCV 88.5 fL 80.0-100.0 MCH 30.1 pg 27.0-33.0 MCHC 34.0 g/dL 32.0-36.0 RDW 13.1 % 11.0-15.0 PLATELET COUNT 267 Thousand/uL 140-400 MPV 9.7 fL 7.5-12.5 ABSOLUTE NEUTROPHILS 6357 cells/uL 1500- 7800 ABSOLUTE LYMPHOCYTES 3758 cells/uL 850-3 900 ABSOLUTE MONOCYTES 882 cells/uL 200-950 ABSOLUTE EOSINOPHILS 499 cells/uL 15-500 ABSOLUTE BASOPHILS 104 cells/uL 0-200 NEUTROPHILS 54.8 % NRG LYMPHOCYTES 32.4 % NRG MONOCYTES 7.6 % NRG EOSINOPHILS 4.3 % NRG BASOPHILS 0.9 % NRG SUREPATH PAP RFX HPV mRNA E6/E7 - 14:19 CLINICAL INFORMATION: NRG LMP: NRG PREV. PAP: NRG PREV. BX: NRG SOURCE: NRG STATEMENT OF ADEQUACY: NRG INTERPRETATION/RESULT: LINA CONTRACT ASSISTANT: LINA COMMENT LINA CBC - 05/13/19 14:43 WHITE BLOOD CELL COUNT 12.2 Thousand/uL 3.8-10.8 RED BLOOD CELL COUNT 5.81 Million/uL 3.8 0-5.10 HEMOGLOBIN 16.9 g/dL 11.7-15.5 HEMATOCRIT 50.5 % 35.0-45.0 MCV 86.9 fL 80.0-100.0 MCH 29.1 pg 27.0-33.0 MCHC 33.5 g/dL 32.0-36.0 RDW 13.2 % 11.0-15.0 PLATELET COUNT 318 Thousand/uL 140-400 MPV 9.9 fL 7.5-12.5 ABSOLUTE NEUTROPHILS 7100 cells/uL 1500- 7800 ABSOLUTE LYMPHOCYTES 3770 cells/uL 850-3 900 ABSOLUTE MONOCYTES 769 cells/uL 200-950 ABSOLUTE EOSINOPHILS 476 cells/uL 15-500 ABSOLUTE BASOPHILS 85 cells/uL 0-200 NEUTROPHILS 58.2 % NRG LYMPHOCYTES 30.9 % NRG MONOCYTES 6.3 % NRG EOSINOPHILS 3.9 % NRG BASOPHILS 0.7 % NRG PDM - 09 PANEL (PROFILE 1) - 05/13/19 14 :43 Prescribed Drug 1 Gabapentin NRG Creatinine 97.9 mg/dL > or = 20.0 pH 6.83 4.5 - 9.0 Oxidant NEGATIVE mcg/mL <200 Amphetamines NEGATIVE ng/mL <500 medMATCH Amphetamines CONSISTENT NRG Benzodiazepines NEGATIVE ng/mL <100 medMATCH Benzodiazepines CONSISTENT NRG Marijuana Metabolite NEGATIVE ng/mL <20 medMATCH Marijuana Metab CONSISTENT NRG Cocaine Metabolite NEGATIVE ng/mL <150 medMATCH Cocaine Metab CONSISTENT NRG Opiates POSITIVE ng/mL <100 Oxycodone NEGATIVE ng/mL <100 medMATCH Oxycodone CONSISTENT NRG COMMENT NRG Codeine NEGATIVE ng/mL <50 medMATCH Codeine CONSISTENT NRG Hydrocodone 2983 ng/mL <50 medMATCH Hydrocodone CONSISTENT NRG Hydromorphone 2319 ng/mL <50 medMATCH Hydromorphone CONSISTENT NRG Morphine NEGATIVE ng/mL <50 medMATCH Morphine CONSISTENT NRG Norhydrocodone 3454 ng/mL <50 medMATCH Norhydrocodone CONSISTENT NRG Prescribed Drug 2 Hydrocodone NRG Barbiturates NEGATIVE ng/mL <300 medMATCH Barbiturates CONSISTENT NRG Methadone Metabolite NEGATIVE ng/mL <100 medMATCH Methadone Metab CONSISTENT NRG Phencyclidine NEGATIVE ng/mL <25 medMATCH Phencyclidine CONSISTENT NRG CULTURE, URINE - 09/02/19 00:00 CULTURE, URINE, ROUTINE SEE NOTE NRG Whole blood basic metabolic panel - 10/26 08:18 Serum or plasma sodium measurement (moles/volume) 141 mmol/L 135-145 Serum or plasma potassium measurement (moles/volume) 4.4 mmol/L 3.6-5.0 Serum or plasma chloride measurement (moles/volume) 104 mmol/L 98-107 Carbon dioxide 27 mmol/L 21-32 Serum or plasma anion gap determination (moles/volume) 10 mmol/L 5-14 Serum or plasma urea nitrogen measurement (mass/volume ) 13 mg/dL 7-18 Serum or plasma creatinine measurement (mass/volume) 0.65 mg/dL 0.60-1.30 Serum or plasma urea nitrogen/creatinine mass ratio 20 NRG Serum or plasma creatinine measurement w ith calculation of estimated glomerular filtration rate > NRG Serum or plasma glucose measurement (mass/volume) 89 mg/dL 70-105 Serum or plasma calcium measurement (mass/volume) 9.0 mg/dL 8.5-10.1 Encounters ACCT No. Visit Date/Time Discharge Status Pt. Type Provider Facility Loc./Unit Complaint [id number] 01/04/2015 10:51:00 01/04/2015 23:59: 59 CLS Outpatient ED SINGER APRN [id number] 12/23/2014 08:23:00 12/23/2014 23:59: 59 CLS Outpatient ED SINGER APRN [id number] 02/02/2020 12:16:00 14:30:00 DIS Emergency LAURA NEAL DO [facility] ER FS WC RT FINGER AMPUTATION [id number] 01/12/2020 09:38:00 020 23:59:59 CLS Outpatient UMAIR MIRANDA APRN [facility] RAD FS S69.91XA [id number] 11/13/2019 08:01:00 23:59:59 CLS Outpatient SULAIMAN DUMONT, LEOPOLDO mckeon [facility] RAD FS LOCALIZED SWELLING,MASS OR LUMP OF NECK [id number] 08/18/2019 17:10:00 23:59:59 CLS Outpatient AIDA COPE [facility] RAD FS R07.89 [id number] 02/13/2018 10:55:00 23:59:59 CLS Outpatient SONYA QUARLES APRN [facility] RAD M51.36 DEGENERATIVE DIS C DISEASE [id number] 01/14/2013 08:23:00 Document Registration [id number] 01/12/2013 15:56:00 Document Registration [id number] 02/02/2020 14:30:00 ACT [facility] [id number] 09/02/2019 15:40:00 Document Registration [id number] 05/13/2019 13:20:00 Document Registration [id number] 02/18/2019 11:00:00 Document Registration [id number] 08/08/2018 11:20:00 Document Registration [id number] 06/19/2018 10:40:00 Document Registration [id number] 02/07/2018 10:40:00 Document Registration
--- NOTE | 2020-02-05 15:18 | NUR ---
This nurse in pt's chart due to pt calling and asking questions regarding paperwork from previous visit.
== END 2020-02-02 14:30 | disposition short-term general hospital (02) ==
LOC: EDUNIT# 12:14 → ER FS 12:16
DX: S68.623A Partial traumatic transphalangeal amputation of left middle finger, initial encounter (principal); F17.210 Nicotine dependence, cigarettes, uncomplicated; Z88.0 Allergy status to penicillin; W23.1XXA Caught, crushed, jammed, or pinched between stationary objects, initial encounter; Y92.59 Other trade areas as the place of occurrence of the external cause; Y99.0 Civilian activity done for income or pay
CPT/HCPCS: 73140

== ENCOUNTER → 2020-09-14 | Outpatient (CLI) | payer SELFPAY ==
[~2020-09-14] MED LIST changes: +CATHETER FLUSH 10 ML SYR IV PRN; +HOLD METFORMIN - RECEIVED CONTRAST 20 ML VIAL IV SCH; +IOHEXOL 350 MG/ML 100 ML (OMNIPAQUE 350) VIAL IV ONE; +LISI10TA2; +NS 100 ML (IVPB) BAG IV ONE; +OXYC-464; +celebrex
--- NOTE | 2020-09-14 13:12 | Diagnostic Imaging Report ---
PROCEDURE: CT abdomen and pelvis with contrast. TECHNIQUE: Multiple contiguous axial images were obtained through the abdomen and pelvis after administration of intravenous contrast. Auto Exposure Controls were utilized during the CT exam to meet ALARA standards for radiation dose reduction. All CT scans use one or more of the following dose optimizing techniques: automated exposure control, MA and/or KvP adjustment based on patient size and exam type or iterative reconstruction. DATE: September 14, 2020. COMPARISON: None. INDICATION: 54-year-old female, right lower quadrant abdominal pain. Intermittent nausea. Loose stools. FINDINGS: There is very mild dependent atelectasis in the right lower lobe. The heart is not enlarged. There is no identified pericardial effusion. The liver is unremarkable in size and contour. There is no identified liver lesion. The main, right, and left portal veins are patent. The gallbladder is unremarkable. There is no intrahepatic or extrahepatic bile duct dilation. The main pancreatic duct is not abnormally dilated. Unremarkable appearance of the pancreatic parenchyma. The spleen is normal in size. The adrenal glands are unremarkable. Unremarkable appearance of the renal parenchyma. The urinary collecting systems are not distended. There is no identified renal or ureteral stone. The urinary bladder is unremarkable. The uterus is not seen and may be surgically absent. The intestinal tract is not distended. There is no free intraperitoneal air. There is no drainable fluid collection. There is no free pelvic fluid. There are atherosclerotic calcifications. There is no identified abnormally enlarged lymph node in the abdomen or pelvis which meets CT size criteria for adenopathy. There is no identified acute bony abnormality. There are degenerative changes of the spine. IMPRESSION: No identified acute abnormality in the abdomen or pelvis. Dictated by: Dictated on workstation # [id number]
== END ==
LOC: RAD FS 10:31
PROVIDERS: ATTEND Nurse Practitioner Family
DX: R10.31 Right lower quadrant pain (principal)
CPT/HCPCS: 74177

== ENCOUNTER → 2021-01-03 | Outpatient (CLI) | payer OTHER ==
[~2021-01-03] MED LIST changes: -HOLD METFORMIN - RECEIVED CONTRAST 20 ML VIAL IV SCH; -IOHEXOL 350 MG/ML 100 ML (OMNIPAQUE 350) VIAL IV ONE; -NS 100 ML (IVPB) BAG IV ONE
--- NOTE | 2021-01-03 16:17 | Diagnostic Imaging Report ---
BONE SCAN 3 PHASE TECHNIQUE: Three-phase scintigraphic imaging of the bilateral hands was performed after the intravenous administration of 25.3 mCi of technetium 99m MDP. INDICATION: Traumatic amputation of the middle finger. COMPARISON: None available. FINDINGS: There is no asymmetric blood flow or blood pool activity within either hand. Periarticular uptake is fairly symmetric in both hands and likely degenerative in nature. There is some slight asymmetric increased radiotracer activity at the tip of the right long finger which is likely due to prior trauma. IMPRESSION: 1. No features of infection within the right hand. 2. Delayed uptake involving the distal aspect of the right long finger is likely due to osseous remodeling associated with healing from amputation. Dictated by: Dictated on workstation # [id number]
== END ==
LOC: CARD 11:43
PROVIDERS: ATTEND Physical Medicine & Rehabilitation
DX: S68.112A Complete traumatic metacarpophalangeal amputation of right middle finger, initial encounter (principal)
CPT/HCPCS: 78315; A9503

== ENCOUNTER → 2021-07-27 | Outpatient (CLI) | payer SELFPAY ==
[~2021-07-27] MED LIST changes: -CATHETER FLUSH 10 ML SYR IV PRN; -LISI10TA2; +LISI10TA25; -OXYC-464; +OXYC1TAB15
--- NOTE | 2021-07-27 08:37 | Diagnostic Imaging Report ---
EXAMINATION: Right knee 3 views HISTORY: Right knee pain COMPARISON: None available. FINDINGS: There is mild medial and patellofemoral compartment osteoarthritis with tiny effusion. No fracture. Alignment is normal. IMPRESSION: 1. Mild medial and patellofemoral compartment osteoarthritis. 2. Tiny knee joint effusion. Dictated by: Dictated on workstation # [id number]
== END ==
LOC: RAD FS 07:58
PROVIDERS: ATTEND Family Medicine
DX: M17.11 Unilateral primary osteoarthritis, right knee (principal); M25.461 Effusion, right knee
CPT/HCPCS: 73562

== ENCOUNTER 2021-12-09 09:02 | Emergency (ER) | payer SELFPAY ==
[~2021-12-09] VITALS: Ht 160 cm; Wt 69.0 kg
[2021-12-09] MEDS ORDERED: methylPREDNISolone 125 MG (Solu-MEDROL) VIAL IV STA (09:10)
--- NOTE | 2021-12-09 09:10 | ED Cough/URI ---
General Stated Complaint: SOB,COUGH History of Present Illness Date Seen by Provider: Dec 09, 2021 Time Seen by Provider: 09:07 Initial Comments 56-year-old female presents with cough, feeling shortness of breath. Patient reports that she had COVID about 3 weeks ago. She reports over the last couple days she has developed a cough and gotten some worsening shortness of breath. She reports that today's are worse today. That she frequently gets bronchitis, continues to smoke but has not smoked in a couple days. She is on inhalers at home. No reports of fever or chills. Allergies and Home Medications Allergies Coded Allergies: Penicillins (Unverified Allergy, Unknown, HIVES, 09/14/20) amoxicillin (Unverified Allergy, Unknown, 09/14/20) Patient Home Medication List Home Medication List Reviewed: Yes Azithromycin (Azithromycin) 250 Mg Tablet, 250 MG PO UD Prescribed by: MAGDALENO EVERETT on 12/09/21 0949 Gabapentin (Neurontin) 400 Mg Cap, 400 MG PO DAILY, (Reported) Entered as Reported by: JASPER HURT on 01/12/13 1611 Lisinopril (Lisinopril) 10 Mg Tablet, (Reported) Entered as Reported by: LUH PERRY on 02/02/20 1317 Oxycodone HCl/Acetaminophen (Oxycodon-Acetaminophen 7.5-325) 1 Each Tablet, (Reported) Entered as Reported by: LUH PERRY on 02/02/20 1316 Prednisone (Prednisone) 20 Mg Tab, 40 MG PO DAILY Prescribed by: MAGDALENO EVERETT on 12/09/21 0949 [celebrex] , (Reported) Entered as Reported by: LUH PERRY on 02/02/20 1317 Review of Systems Review of Systems Constitutional: chills, fever, malaise Respiratory: cough, short of breath Cardiovascular: No chest pain, No palpitations Gastrointestinal: No abdominal pain, No nausea, No vomiting Genitourinary: no symptoms reported Musculoskeletal: no symptoms reported Skin: no symptoms reported Psychiatric/Neurological: No Symptoms Reported Past Noabhgg-Fpmrpi-Qrleqr Hx Immunizations Up To Date Tetanus Booster (TDap): Less than 5yrs Seasonal Allergies Seasonal Allergies: No Past Medical History Surgeries: Yes (Partial Hyst) Hysterectomy, Tonsillectomy Respiratory: No Cardiac: No Neurological: No Reproductive Disorders: No Genitourinary: No Gastrointestinal: No Musculoskeletal: Yes (ARTHRITIS, FIBROMYALGIA) Endocrine: Yes Diabetes, Non-Insulin dep HEENT: No Cancer: No Psychosocial: No Integumentary: No Blood Disorders: No Physical Exam Vital Signs - First Documented 12/09/21 09:30 Pulse 99 Resp 16 B/P (MAP) 132/86 (101) Pulse Ox 92 O2 Delivery Room Air Capillary Refill : Height: '" Weight: lbs. oz. kg; 28.00 BMI Method: General Appearance: WD/WN, no apparent distress Neck: supple Respiratory: no respiratory distress, no accessory muscle use, decreased breath sounds (mild right sided, ), wheezing (mild ) Cardiovascular: normal peripheral pulses Gastrointestinal: non tender, soft Neurologic/Psychiatric: alert, normal mood/affect, oriented x 3 Skin: normal color, warm/dry Lymphatic: no adenopathy Progress/Results/Core Measures Suspected Sepsis SIRS Temperature: Pulse: Respiratory Rate: Laboratory Tests 12/09/21 09:11: White Blood Count 6.9 Blood Pressure / Mean: Laboratory Tests 12/09/21 09:11: Creatinine 0.55L, Platelet Count 285, Total Bilirubin 0.5 Results/Orders Lab Results Laboratory Tests Test 12/09/21 09:11 12/09/21 09:25 Range/Units White Blood Count 6.9 4.3-11.0 10^3/uL Red Blood Count 5.75 H 3.80-5.11 10^6/uL Hemoglobin 16.6 H 11.5-16.0 g/dL Hematocrit 51 35-52 % Mean Corpuscular Volume 88 80-99 fL Mean Corpuscular Hemoglobin 29 25-34 pg Mean Corpuscular Hemoglobin Concent 33 32-36 g/dL Red Cell Distribution Width 13.4 10.0-14.5 % Platelet Count 285 130-400 10^3/uL Mean Platelet Volume 9.0 9.0-12.2 fL Immature Granulocyte % (Auto) 0 % Neutrophils (%) (Auto) 80 H 42-75 % Lymphocytes (%) (Auto) 15 12-44 % Monocytes (%) (Auto) 5 0-12 % Eosinophils (%) (Auto) 0 0-10 % Basophils (%) (Auto) 0 0-10 % Neutrophils # (Auto) 5.5 1.8-7.8 X 10^3 Lymphocytes # (Auto) 1.0 1.0-4.0 X 10^3 Monocytes # (Auto) 0.3 0.0-1.0 X 10^3 Eosinophils # (Auto) 0.0 0.0-0.3 10^3/uL Basophils # (Auto) 0.0 0.0-0.1 10^3/uL Immature Granulocyte # (Auto) 0.0 0.0-0.1 10^3/uL Sodium Level 134 L 135-145 MMOL/L Potassium Level 4.0 3.6-5.0 MMOL/L Chloride Level 99 98-107 MMOL/L Carbon Dioxide Level 25 21-32 MMOL/L Anion Gap 10 5-14 MMOL/L Blood Urea Nitrogen 14 7-18 MG/DL Creatinine 0.55 L 0.60-1.30 MG/DL Estimat Glomerular Filtration Rate 107 BUN/Creatinine Ratio 25 Glucose Level 260 H 70-105 MG/DL Calcium Level 9.3 8.5-10.1 MG/DL Corrected Calcium 8.5-10.1 MG/DL Total Bilirubin 0.5 0.1-1.0 MG/DL Aspartate Amino Transf (AST/SGOT) 10 5-34 U/L Alanine Aminotransferase (ALT/SGPT) 10 0-55 U/L Alkaline Phosphatase 78 40-136 U/L Total Protein 7.9 6.4-8.2 GM/DL Albumin 4.6 H 3.2-4.5 GM/DL Influenza Type A Antigen NEGATIVE NEGATIVE Influenza Type B Antigen NEGATIVE NEGATIVE My Orders Orders - EVERETT,MAGDALENO L DO Cbc With Automated Diff (12/09/21 09:10) Comprehensive Metabolic Panel (12/09/21 09:10) Influenza A & B Antigens (12/09/21 09:10) Chest Pa/Lat (2 View) (12/09/21 09:10) Ipratropium 0.02% Neb Solution (Atrovent (12/09/21 09:15) Methylprednisolone Sod Succ (Solu-Medrol (12/09/21 09:10) Svn Small Volume Nebulizer (12/09/21 09:10) Ipratropium 0.02% Neb Solution (Atrovent (12/09/21 09:21) Medications Given in ED Current Medications Medications Dose Ordered Sig/Peyman Route Start Time Stop Time Status Last Admin Dose Admin Ipratropium [place] 0.5 mg ONCE ONCE IH 12/09/21 09:15 12/09/21 09:16 DC 12/09/21 09:16 0.5 MG Vital Signs/I&O 12/09/21 09:30 Pulse 99 Resp 16 B/P (MAP) 132/86 (101) Pulse Ox 92 O2 Delivery Room Air Capillary Refill : Progress Note : Progress Note Patient with mood very minimal if any hazy infiltrate on x-ray. Patient with normal white count. I suspect she has a flare of her chronic bronchitis. I wi ll give her a couple days of steroids along with some azithromycin since there is some potential hazy infiltrate. Patient stable and discharged Diagnostic Imaging Diagonstic Imaging: Xray Plain Films/CT/US/NM/MRI: chest Comments CHEST PA/LAT (2 VIEW) EXAMINATION: Chest 2 view HISTORY: Cough. COVID positive. COMPARISON: 08/18/2019. FINDINGS: The lung volumes are normal. No focal consolidation is seen. Small amount of hazy opacities are seen in the lung bases. No large pleural effusion or pneumothorax is seen. The cardiomediastinal silhouette is normal in size and contour. No acute osseous abnormality is seen. IMPRESSION: 1. Small amount of hazy opacities in the lung bases, which may represent inflammatory or infectious process. No focal consolidation or pleural effusion. Departure Impression Primary Impression: Bronchitis Disposition: 01 HOME, SELF-CARE Condition: Stable Departure-Patient Inst. Referrals: DAVIN ANDERSON MD (PCP/Family) Primary Care Physician Patient Instructions: Acute Bronchitis, Adult (DC) Add. Discharge Instructions: Use your inhaler every 4 hours for the next 24 hours while awake Scripts Azithromycin (Azithromycin) 250 Mg Tablet 250 MG PO UD, #6 TAB TAKE 2 TABLETS ON DAY ONE THEN TAKE 1 TABLET DAILY FOR FOUR MORE DAYS. Prov: MAGDALENO EVERETT DO 12/09/21 Prednisone (Prednisone) 20 Mg Tab 40 MG PO DAILY, #6 TAB 0 Refills . Prov: MAGDALENO EVERETT DO 12/09/21 MAGDALENO EVERETT DO Dec 09, 2021 09:10
[2021-12-09] MEDS ORDERED: RT-IPRATROPIUM (ATROVENT) 0.5MG/2.5ML AMP IH ONE ×2 (09:15→09:21)
[2021-12-09 09:23] LABS: HEMATOCRIT 51 % (35-52); HEMOGLOBIN 16.6 g/dL (11.5-16.0); MEAN CORPUSCULAR HEMOGLOBIN 29 pg (25-34); WHITE BLOOD COUNT 6.9 10^3/uL (4.3-11.0)
[2021-12-09 09:24] LABS: BASOPHILS % (AUTO) 0 % (0-10); EOSINOPHILS % (AUTO) 0 % (0-10); LYMPHOCYTES % (AUTO) 15 % (12-44); MEAN CORPUSCULAR HGB CONC 33 g/dL (32-36); MEAN CORPUSCULAR VOLUME 88 fL (80-99); MONOCYTES # (AUTO) 0.3 X 10^3 (0.0-1.0); MONOCYTES % (AUTO) 5 % (0-12); NEUTROPHILS # (AUTO) 5.5 X 10^3 (1.8-7.8); NEUTROPHILS % (AUTO) 80 % (42-75); PLATELET COUNT 285 10^3/uL (130-400)
[2021-12-09 09:30] VITALS: BP 132/86
[2021-12-09 09:41] LABS: ALANINE AMINOTRANSFERASE 10 U/L (0-55); ALBUMIN 4.6 GM/DL (3.2-4.5); ALKALINE PHOSPHATASE 78 U/L (40-136); BILIRUBIN,TOTAL 0.5 MG/DL (0.1-1.0); BUN/CREATININE RATIO 25; CALCIUM 9.3 MG/DL (8.5-10.1); CARBON DIOXIDE 25 MMOL/L (21-32); CHLORIDE 99 MMOL/L (98-107); CREATININE SERUM 0.55 MG/DL (0.60-1.30); GFR ESTIMATED 107; GLUCOSE 260 MG/DL (70-105); SODIUM 134 MMOL/L (135-145); TOTAL PROTEIN 7.9 GM/DL (6.4-8.2)
--- NOTE | 2021-12-09 09:43 | Diagnostic Imaging Report ---
EXAMINATION: Chest 2 view HISTORY: Cough. COVID positive. COMPARISON: 08/18/2019. FINDINGS: The lung volumes are normal. No focal consolidation is seen. Small amount of hazy opacities are seen in the lung bases. No large pleural effusion or pneumothorax is seen. The cardiomediastinal silhouette is normal in size and contour. No acute osseous abnormality is seen. IMPRESSION: 1. Small amount of hazy opacities in the lung bases, which may represent inflammatory or infectious process. No focal consolidation or pleural effusion. Dictated by: Dictated on workstation # [id number]
[2021-12-09] MEDS ORDERED: AZIT250T12 PO ×2 (09:49→09:56)
[2021-12-09] MEDS ORDERED: PRD20T PO ×2 (09:49→09:56)
[2021-12-10] MEDS ORDERED: AA8/1CAP3 PO (13:01)
[2021-12-10] MEDS ORDERED: celebrex PO (13:04)
[2021-12-10] MEDS ORDERED: ROSU40TA23 PO (13:04)
[2021-12-10] MEDS ORDERED: TIZA4TAB11 PO (13:05)
[2021-12-10] MEDS ORDERED: GABA-490 PO (13:06)
== END 2021-12-09 09:55 | disposition home or self-care (01) ==
LOC: EDUNIT# 09:02 → ER FS 09:04
DX: J42 Unspecified chronic bronchitis (principal); E11.9 Type 2 diabetes mellitus without complications; M79.7 Fibromyalgia; F17.210 Nicotine dependence, cigarettes, uncomplicated; Z79.899 Other long term (current) drug therapy; Z20.822 Contact with and (suspected) exposure to COVID-19
CPT/HCPCS: 36415; 71046; 80053; 85025; 87804; 96374

== ENCOUNTER 2021-12-10 05:52 | Inpatient (IN) | payer SELFPAY ==
[~2021-12-10] VITALS: Ht 160 cm; Wt 65.6 kg
[~2021-12-10 05:52] MED LIST changes: +AZIT250T12 PO; +PRD20T PO
[2021-12-10] MEDS ORDERED: RT-ALBUTEROL/IPRATROPIUM 3 ML (DUONEB) VIAL INH ONE (06:15)
--- NOTE | 2021-12-10 06:15 | ED General ---
General Chief Complaint: Respiratory Problems Stated Complaint: SOB Nursing Triage Note: Patient states that she had covid a few weeks ago. Patient has had sustained shortness of breath. Patient was seen in the ER recently. She states she got a breathing treatment and an antibiotic. Patient states she has felt good until this morning. She states that she woke up short of breath. Source of Information: Patient, Old Records History of Present Illness Date Seen by Provider: Dec 10, 2021 Time Seen by Provider: 05:54 Initial Comments 56-year-old female presenting with complaints of continued shortness of breath. She states that she had COVID 3 weeks ago and has continued to smoke cigarettes. She has a history of frequent bronchitis and uses an albuterol inhaler at home. She was having cough and shortness of breath that was worse in the last several days to the point that she was not smoking because she was so short of breath. She came to the emergency department yesterday and was seen and evaluated. At that time she had seemed to improve with a breathing treatment and her chest x- ray showed some haziness in the bases of her lungs so she was started on steroids and a Z-Micah. She continued to feel short of breath and have difficulty with her breathing overnight. She states she woke up this morning and felt like she was gasping for breath. She had tried her albuterol inhaler at home with no effect. She was asking if she needed to be admitted to [facility] because her boyfriend had been admitted there after he had COVID and the only way he could get over his shortness of breath from the infection was to be admitted and placed on oxygen. She is wondering if she needs the same thing since she continues to be short of breath since she had Covid. Timing/Duration: Getting Worse (over the last 3 weeks or so her shortness of breath has worsened since she had Covid) Severity: Moderate Modifying Factors: worse with Movement (activity makes her short of breath) Associated Systoms: No Chest Pain; Cough; No Diaphoresis, No Fever/Chills, No Headaches, No Loss of Appetite, No Malaise, No Nausea/Vomiting, No Rash, No Seizure; Shortness of Air; No Syncope, No Weakness Allergies and Home Medications Allergies Coded Allergies: Penicillins (Unverified Allergy, Unknown, HIVES, 09/14/20) amoxicillin (Unverified Allergy, Unknown, 09/14/20) Patient Home Medication List Home Medication List Reviewed: Yes Azithromycin (Azithromycin) 250 Mg Tablet, 250 MG PO UD Prescribed by: MAGDALENO EVERETT on 12/09/21 0956 Gabapentin (Neurontin) 400 Mg Cap, 400 MG PO DAILY, (Reported) Entered as Reported by: JASPER HURT on 01/12/13 1611 Lisinopril (Lisinopril) 10 Mg Tablet, (Reported) Entered as Reported by: LUH PERRY on 02/02/20 1317 Oxycodone HCl/Acetaminophen (Oxycodon-Acetaminophen 7.5-325) 1 Each Tablet, (Reported) Entered as Reported by: LUH PERRY on 02/02/20 1316 Prednisone (Prednisone) 20 Mg Tab, 40 MG PO DAILY Prescribed by: MAGDALENO EVERETT on 12/09/21 0956 [celebrex] , (Reported) Entered as Reported by: LUH PERRY on 02/02/20 1317 Review of Systems Review of Systems Constitutional: No chills, No fever EENTM: no symptoms reported Respiratory: cough, dyspnea on exertion; No hemoptysis; short of breath; No stridor; wheezing Cardiovascular: No chest pain Gastrointestinal: No nausea, No vomiting Genitourinary: No dysuria Musculoskeletal: no symptoms reported Skin: No rash Psychiatric/Neurological: Anxiety Past Nituvql-Gmqruu-Bmviky Hx Patient Social History Tobacco Use?: Yes Tobacco type used: Cigarettes Smoking Status: Current Everyday Smoker Alcohol Use?: No Pt feels they are or have been: No Immunizations Up To Date Tetanus Booster (TDap): Less than 5yrs Seasonal Allergies Seasonal Allergies: No Past Medical History Surgeries: Yes (Partial Hyst) Hysterectomy, Tonsillectomy Respiratory: Yes Chronic Bronchitis Cardiac: Yes Hypertension Neurological: No Reproductive Disorders: No Genitourinary: No Gastrointestinal: No Musculoskeletal: Yes (ARTHRITIS, FIBROMYALGIA) Fibromyalgia Endocrine: Yes Diabetes, Non-Insulin dep HEENT: No Cancer: No Psychosocial: No Integumentary: No Blood Disorders: No Physical Exam Vital Signs Vital Signs - First Documented 12/10/21 05:54 Temp 36.5 Pulse 94 Resp 20 B/P (MAP) 158/86 (110) Pulse Ox 91 O2 Delivery Room Air Capillary Refill : Less Than 3 Seconds Height, Weight, BMI Height: '" Weight: lbs. oz. 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, 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 Skin: Normal Color, Warm/Dry Focused Exam Lactate Level 12/10/21 07:18: Lactic Acid Level 1.44 Lactic Acid Level Laboratory Tests Test 12/10/21 07:18 Lactic Acid Level 1.44 MMOL/L (0.50-2.00) Progress/Results/Core Measures Suspected Sepsis SIRS Temperature: Pulse: 94 Respiratory Rate: 20 Laboratory Tests 12/10/21 06:15: White Blood Count 7.7 Blood Pressure 158 /86 Mean: 110 12/10/21 07:18: Lactic Acid Level 1.44 Laboratory Tests 12/10/21 06:15: Creatinine 0.55L, Platelet Count 288, Total Bilirubin 0.6 Results/Orders Lab Results Laboratory Tests Test 12/10/21 06:15 12/10/21 06:25 12/10/21 07:18 Range/Units White Blood Count 7.7 4.3-11.0 10^3/uL Red Blood Count 5.51 H 3.80-5.11 10^6/uL Hemoglobin 15.9 11.5-16.0 g/dL Hematocrit 48 35-52 % Mean Corpuscular Volume 87 80-99 fL Mean Corpuscular Hemoglobin 29 25-34 pg Mean Corpuscular Hemoglobin Concent 33 32-36 g/dL Red Cell Distribution Width 13.2 10.0-14.5 % Platelet Count 288 130-400 10^3/uL Mean Platelet Volume 9.0 9.0-12.2 fL Immature Granulocyte % (Auto) 0 % Neutrophils (%) (Auto) 67 42-75 % Lymphocytes (%) (Auto) 21 12-44 % Monocytes (%) (Auto) 11 0-12 % Eosinophils (%) (Auto) 0 0-10 % Basophils (%) (Auto) 0 0-10 % Neutrophils # (Auto) 5.2 1.8-7.8 X 10^3 Lymphocytes # (Auto) 1.6 1.0-4.0 X 10^3 Monocytes # (Auto) 0.9 0.0-1.0 X 10^3 Eosinophils # (Auto) 0.0 0.0-0.3 10^3/uL Basophils # (Auto) 0.0 0.0-0.1 10^3/uL Immature Granulocyte # (Auto) 0.0 0.0-0.1 10^3/uL Sodium Level 140 135-145 MMOL/L Potassium Level 3.9 3.6-5.0 MMOL/L Chloride Level 104 98-107 MMOL/L Carbon Dioxide Level 23 21-32 MMOL/L Anion Gap 13 5-14 MMOL/L Blood Urea Nitrogen 15 7-18 MG/DL Creatinine 0.55 L 0.60-1.30 MG/DL Estimat Glomerular Filtration Rate 107 BUN/Creatinine Ratio 27 Glucose Level 179 H 70-105 MG/DL Calcium Level 9.5 8.5-10.1 MG/DL Corrected Calcium 9.3 8.5-10.1 MG/DL Magnesium Level 2.1 1.6-2.4 MG/DL Total Bilirubin 0.6 0.1-1.0 MG/DL Aspartate Amino Transf (AST/SGOT) 9 5-34 U/L Alanine Aminotransferase (ALT/SGPT) 8 0-55 U/L Alkaline Phosphatase 70 40-136 U/L C-Reactive Protein < 0.30 <0.50 MG/DL Total Protein 7.4 6.4-8.2 GM/DL Albumin 4.3 3.2-4.5 GM/DL Blood Gas Puncture Site RIGHT WRIST Blood Gas Patient Temperature 36.5 Arterial Blood pH 7.49 H 7.37-7.43 Arterial Blood Partial Pressure CO2 38 35-45 MMHG Arterial Blood Partial Pressure O2 71 L 79-93 MMHG Arterial Blood HCO3 29 H 23-27 MMOL/L Arterial Blood Total CO2 30.2 21.0-31.0 MMOL/L Arterial Blood Oxygen Saturation 95 94-100 % Arterial Blood Base Excess 5.4 H -2.5-2.5 MMOL/L Cain Test NEGATIVE Blood Gas Ventilator Setting NO Blood Gas Inspired Oxygen ROOM AIR Lactic Acid Level 1.44 0.50-2.00 MMOL/L My Orders Orders - CARLOS ORTEZ MD Cbc With Automated Diff (12/10/21 06:05) Comprehensive Metabolic Panel (12/10/21 06:05) Albuterol/Ipra Inhalation Soln (Duoneb I (12/10/21 06:15) Magnesium (12/10/21 06:05) Ed Iv/Invasive Line Start (12/10/21 06:05) Crp Fs (12/10/21 06:05) Svn Small Volume Nebulizer (12/10/21 06:05) Arterial Blood Gas (12/10/21 06:05) Dexamethasone Injection (Decadron Inje (12/10/21 06:09) O2 (12/10/21 06:17) Blood Culture (12/10/21 07:02) Lactic Acid Analyzer (12/10/21 07:02) Ceftriaxone 1 Gm Pre-Mix (Rocephin 1 Gm (12/10/21 07:02) Ns Iv 1000 Ml (Sodium Chloride 0.9%) (12/10/21 07:45) Medications Given in ED Current Medications Medications Dose Ordered Sig/Peyman Route Start Time Stop Time Status Last Admin Dose Admin Albuterol/ Ipratropium 3 ml ONCE ONCE INH 12/10/21 06:15 12/10/21 06:16 DC 12/10/21 06:19 3 ML Vital Signs/I&O 12/10/21 05:54 Temp 36.5 Pulse 94 Resp 20 B/P (MAP) 158/86 (110) Pulse Ox 91 O2 Delivery Room Air Capillary Refill : Less Than 3 Seconds Blood Pressure Mean: 110 Progress Note #1: Progress Note While speaking with the patient and her oxygen saturation was 94 to 96%. After leaving the room to place orders to repeat her blood work from yesterday and to get an ABG, she had oxygen level drop to 87% on room air with a good wave form. Will continue with duoneb breathing treatment and oxygen supplementation after she has ABG obtained. Since it has not even been 24 hours since she had a CXR will defer repeating that for now. She was started on antibiotics and steroids so will defer blood cultures. Progress Note #2: Progress Note Blood gas obtained as she was being started on oxygen and it showed pH 7.49, pCO2 38, pO2 71. She had no acute significant abnormality on CBC or Chemistry other than mild glucose elevation. She does have diet controlled diabetes by history and was started on steroids yesterday. She consistently was reading in low to mid 80s for her O2 saturation with a good wave form but did go to 100% while getting duoneb treatment. However, after breathing treatment on room air she again dropped to mid 80s for O2 sat. Will place on supplemental oxygen by n.c. and check about admit for chronic bronchitis exacerbation admit with hypoxia. Pt agreeable to admit but requested to go to [facility] if possible. She will go to [facility] if [place] has no beds available. I checked with Dr. Winchester, hospitalist for [facility], and he was not sure if they had beds available and referred me to the nursing casino slot supervisor. I spoke with LUIS Liz, the nursing casino slot supervisor at [facility] and she advised they had no beds of any levels available. 0657 d/w Dr. Morris for [facility] and he accepted pt for admit. He did request adding Rocephin for additional coverage with her already being on zithromax and continue steroids. Use the RMAT protocol for her breathing. Since adding antibiotics by IV will obtain blood cultures and lactic acid prior to starting that. Progress Note #3: Progress Note 0743 Lactic acid 1.44 and not elevated. Continue with admit to [facility]. Waiting on EMS for transport. Departure Communication (Admissions) Time/Spoke to Admitting Phy: 06:57 d/w Dr. Morris for [facility] and he accepted for admit. Will add on Rocephin in addition to zithromax and steroids. sliding scale insulin for elevated glucose with steroids. RMAT protocol. Impression Primary Impression: Hypoxia Additional Impressions: Shortness of breath Persistent shortness of breath after COVID-19 Chronic bronchitis with acute exacerbation Disposition: 30 STILL A PATIENT Condition: Stable Admissions Decision to Admit Reason: Admit from ER (General) Decision to Admit/Date: Dec 10, 2021 Time/Decision to Admit Time: 06:57 Departure-Patient Inst. Referrals: DAVIN ANDERSON MD (PCP/Family) Primary Care Physician CARLOS ORTEZ MD Dec 10, 2021 06:15
[2021-12-10 06:26] LABS: BASOPHILS % (AUTO) 0 % (0-10); EOSINOPHILS % (AUTO) 0 % (0-10); HEMATOCRIT 48 % (35-52); HEMOGLOBIN 15.9 g/dL (11.5-16.0); LYMPHOCYTES # (AUTO) 1.6 X 10^3 (1.0-4.0); LYMPHOCYTES % (AUTO) 21 % (12-44); MEAN CORPUSCULAR HEMOGLOBIN 29 pg (25-34); MEAN CORPUSCULAR HGB CONC 33 g/dL (32-36); MEAN CORPUSCULAR VOLUME 87 fL (80-99); MONOCYTES # (AUTO) 0.9 X 10^3 (0.0-1.0); MONOCYTES % (AUTO) 11 % (0-12); NEUTROPHILS # (AUTO) 5.2 X 10^3 (1.8-7.8); NEUTROPHILS % (AUTO) 67 % (42-75); PLATELET COUNT 288 10^3/uL (130-400); WHITE BLOOD COUNT 7.7 10^3/uL (4.3-11.0)
[2021-12-10 06:33] LABS: ABG BASE EXCESS 5.4 MMOL/L (-2.5-2.5); ABG OXYGEN SATURATION 95 % (94-100); ABG PCO2 38 MMHG (35-45); ABG PH 7.49 (7.37-7.43); ABG PO2 71 MMHG (79-93); ABG TCO2 30.2 MMOL/L (21.0-31.0); ALLENS TEST NEGATIVE
[2021-12-10 06:34] LABS: INSPIRED O2 ROOM AIR; PATIENT TEMP 36.5; VENTILATOR NO
[2021-12-10 06:50] LABS: POTASSIUM 3.9 MMOL/L (3.6-5.0); SODIUM 140 MMOL/L (135-145)
[2021-12-10 06:51] LABS: ALANINE AMINOTRANSFERASE 8 U/L (0-55); ALBUMIN 4.3 GM/DL (3.2-4.5); ALKALINE PHOSPHATASE 70 U/L (40-136); BILIRUBIN,TOTAL 0.6 MG/DL (0.1-1.0); BUN/CREATININE RATIO 27; CALCIUM 9.5 MG/DL (8.5-10.1); CARBON DIOXIDE 23 MMOL/L (21-32); CHLORIDE 104 MMOL/L (98-107); CREATININE SERUM 0.55 MG/DL (0.60-1.30); GFR ESTIMATED 107; GLUCOSE 179 MG/DL (70-105); MAGNESIUM 2.1 MG/DL (1.6-2.4); TOTAL PROTEIN 7.4 GM/DL (6.4-8.2)
[2021-12-10] MEDS ORDERED: cefTRIAXone 1 GM PRE-MIX 50 ML IV STA (07:02)
[2021-12-10 08:54] VITALS: BP 154/82
[2021-12-10] MEDS: NS IV 1000 ML 1,000 ML IV SCH ×3 (09:40→22:18)
[2021-12-10 10:29] VITALS: BP 154/82
[2021-12-10] MEDS ORDERED: RT-ALBUTEROL SULF 2.5 MG/3 ML PRE-MIX VIAL INH PRN (10:45)
[2021-12-10] MEDS ORDERED: RT-ALBUTEROL HFA 8.5 GM INHALER IH PRN (11:00)
[2021-12-10] MEDS ORDERED: ACETAMINOPHEN 500 MG TAB (TYLENOL) PO PRN (11:15)
[2021-12-10 11:53] VITALS: BP 145/74
--- NOTE | 2021-12-10 12:20 | History & Physical-Hospitalist ---
History of Present Illness HPI/Chief Complaint 56-year-old female presenting with complaints of continued shortness of breath. She states that she had COVID 3 weeks ago and has continued to smoke cigarettes. She has a history of frequent bronchitis and uses an albuterol inhaler at home. She was having cough and shortness of breath that was worse in the last several days to the point that she was not smoking because she was so short of breath. She came to the emergency department yesterday and was seen and evaluated. At that time she had seemed to improve with a breathing treatment and her chest x- ray showed some haziness in the bases of her lungs so she was started on steroids and a Z-Micah. She continued to feel short of breath and have difficulty with her breathing overnight. She states she woke up this morning and felt like she was gasping for breath. She had tried her albuterol inhaler at home with no effect. She was asking if she needed to be admitted to [facility] because her boyfriend had been admitted there after he had COVID and the only way he could get over his shortness of breath from the infection was to be admitted and placed on oxygen. She is wondering if she needs the same thing since she continues to be short of breath since she had Covid. Timing/Duration: Getting Worse (over the last 3 weeks or so her shortness of breath has worsened since she had Covid) Upon my arrival after breathing treatment the patient was feeling better with no shortness of breath at rest feeling fatigued. She had no night sweats chills or fever and had minimal sputum production. She states that she is through with cigarettes currently with no desire to smoke. Date Seen 12/10/21 Time Seen by a Provider: 11:30 Attending Physician Kenny Winston MD PCP Jacoby Srivastava MD Referring Physician Date of Admission Dec 10, 2021 at 08:52 Home Medications & Allergies Home Medications Reviewed patient Home Medication Reconciliation performed by pharmacy medication reconciliations aerospace technician and/or nursing. Patients Allergies have been reviewed. Allergies Allergies Coded Allergies Penicillins (Unverified Allergy, Unknown, HIVES, 09/14/20) amoxicillin (Unverified Allergy, Unknown, 09/14/20) Past Bdjqioo-Jokpmy-Wnbcac Hx Patient Social History Tobacco Use?: Yes Tobacco type used: Cigarettes Smoking Status: Current Everyday Smoker Smokeless Tobacco Frequency: Current Everyday User Use of E-Cig and/or Vaping dev: No Alcohol Use?: No Pt feels they are or have been: No Immunizations Up To Date Date of Influenza Vaccine: Sep 25, 2019 Tetanus Booster (TDap): Less Than 5 Years Hepatitis A: Yes Hepatitis B: Yes Seasonal Allergies Seasonal Allergies: No Current Status status: No Advance Directives: No Communicates: Verbally Primary Language: Egyptian Preferred Spoken Language: Egyptian Is interpretation needed?: No Past Medical History Surgeries: Hysterectomy, Tonsillectomy Chronic Bronchitis Hypertension Fibromyalgia Diabetes, Non-Insulin dep Blood Disorders: No Review of Systems Constitutional: see HPI Physical Exam Physical Exam Vital Signs Vital Signs - First Documented 12/10/21 12/10/21 12/10/21 05:54 08:24 10:29 Temp 36.5 Pulse 94 Resp 20 B/P (MAP) 158/86 (110) Pulse Ox 91 O2 Delivery Room Air O2 Flow Rate 2.00 FiO2 2 Capillary Refill : Less Than 3 Seconds Height, Weight, BMI Height: '" Weight: lbs. oz. kg; 25.62 BMI Method: General Appearance: No Apparent Distress Respiratory: No Accessory Muscle Use, No Respiratory Distress, Other (Diminis hed breath sounds in bases with a few fine rales scattered rhonchi with expiratory wheezing.) Cardiovascular: Regular Rate, Rhythm, No Edema, No Gallop, No JVD, No Murmur, Normal Peripheral Pulses Gastrointestinal: Normal Bowel Sounds, No Organomegaly, No Pulsatile Mass, Non Tender, Soft Extremity: Normal Capillary Refill, Normal Inspection, Normal Range of Motion, Non Tender, No Calf Tenderness, No Pedal Edema Results Results/Procedures Labs Laboratory Tests 12/10/21 06:15 Patient resulted labs reviewed. Assessment/Plan Admission Diagnosis 1. Acute exacerbation of chronic bronchitis due to ongoing tobaccoism possibly aggravated by recent COVID infection for which the patient is about 3 weeks out from symptoms not likely to be contagious at this point. No evidence for secondary bacterial infection at this point we will continue bronchodilator therapy and steroid therapy. 2. Insulin resistance versus overt diabetes we will switch to 1500-calorie ADA diet monitor blood sugars and initiate sliding scale insulin for now. This will be aggravated by steroid therapy temporarily. Admission Status: Observation KENNY WINSTON MD Dec 10, 2021 12:20
[2021-12-10] MEDS ORDERED: inSUlin ASPART (NovoLOG) 1 UNIT/0.01 ML (CHARGE PER UNIT) ONE (12:24)
[2021-12-10] MEDS ORDERED: AA8/1CAP3 PO (13:01)
[2021-12-10] MEDS ORDERED: celebrex PO (13:04)
[2021-12-10] MEDS ORDERED: ROSU40TA23 PO (13:04)
[2021-12-10] MEDS ORDERED: TIZA4TAB11 PO (13:05)
[2021-12-10] MEDS ORDERED: GABA-490 PO (13:06)
[2021-12-10] MEDS ORDERED: RT-ALBUTEROL SULF 2.5 MG/3 ML PRE-MIX VIAL INH SCH (15:00)
[2021-12-10] MEDS: RT-ALBUTEROL HFA 8.5 GM INHALER IH SCH ×2 (15:39→21:43)
[2021-12-10] MEDS ORDERED: oxyCODONE/APAP 7.5-325 MG (PERCOCET 7.5) TABLET PO PRN (15:45)
[2021-12-10 15:52] VITALS: BP 121/67
[2021-12-10] MEDS: inSUlin ASPART (NovoLOG) 1 UNIT/0.01 ML (CHARGE PER UNIT) SC SCH ×2 (16:05→21:08)
[2021-12-10 20:23] VITALS: BP 146/78
[2021-12-11] VITALS: BP 131/73
[2021-12-11] MEDS: RT-ALBUTEROL HFA 8.5 GM INHALER IH SCH ×2 (03:04→07:59)
[2021-12-11 03:13] VITALS: BP 138/61
[2021-12-11] MEDS: inSUlin ASPART (NovoLOG) 1 UNIT/0.01 ML (CHARGE PER UNIT) SC SCH (05:31)
[2021-12-11 06:28] LABS: BASOPHILS % (AUTO) 0 % (0-10); EOSINOPHILS % (AUTO) 0 % (0-10); HEMATOCRIT 48 % (35-52); HEMOGLOBIN 15.6 g/dL (11.5-16.0); LYMPHOCYTES % (AUTO) 30 % (12-44); MEAN CORPUSCULAR HEMOGLOBIN 29 pg (25-34); MEAN CORPUSCULAR HGB CONC 33 g/dL (32-36); MEAN CORPUSCULAR VOLUME 88 fL (80-99); MEAN PLATELET VOLUME 9.3 fL (9.0-12.2); MONOCYTES # (AUTO) 0.8 10^3/uL (0.0-1.0); MONOCYTES % (AUTO) 8 % (0-12); NEUTROPHILS # (AUTO) 6.2 10^3/uL (1.8-7.8); NEUTROPHILS % (AUTO) 61 % (42-75); PLATELET COUNT 279 10^3/uL (130-400); WHITE BLOOD COUNT 10.1 10^3/uL (4.3-11.0)
[2021-12-11 06:58] LABS: POTASSIUM 3.7 MMOL/L (3.6-5.0)
[2021-12-11 07:03] LABS: CREATININE SERUM 0.76 MG/DL (0.60-1.30)
[2021-12-11 08:00] VITALS: BP 165/83
--- NOTE | 2021-12-11 09:27 | Discharge Summary ---
Diagnosis/Chief Complaint Date of Admission Dec 10, 2021 at 08:52 Date of Discharge Discharge Date: Dec 11, 2021 Admission Diagnosis 1. Acute exacerbation of chronic bronchitis due to ongoing tobaccoism possibly aggravated by recent COVID infection for which the patient is about 3 weeks out from symptoms not likely to be contagious at this point. No evidence for secondary bacterial infection at this point we will continue bronchodilator therapy and steroid therapy. 2. Insulin resistance versus overt diabetes we will switch to 1500-calorie ADA diet monitor blood sugars and initiate sliding scale insulin for now. This will be aggravated by steroid therapy temporarily. Primary Care Davin Srivastava MD Discharge Summary Discharge Physical Exam Allergies: Coded Allergies: Penicillins (Unverified Allergy, Unknown, HIVES, 09/14/20) amoxicillin (Unverified Allergy, Unknown, 09/14/20) Vitals & I&Os Vital Signs Date Time Temp Pulse Resp B/P (MAP) Pulse Ox O2 Delivery O2 Flow Rate FiO2 12/11/21 08:00 36.3 77 18 165/83 (110) 94 Nasal Cannula 2.00 12/10/21 10:29 2 General Appearance: No Apparent Distress Respiratory: Chest Non Tender, Lungs Clear, Normal Breath Sounds, No Accessory Muscle Use, No Respiratory Distress Cardiovascular: Regular Rate, Rhythm, No Edema, No Gallop, No JVD, No Murmur, Normal Peripheral Pulses Hospital Course Was the Problem List Reviewed?: Yes 56-year-old female presenting with complaints of continued shortness of breath. She states that she had COVID 3 weeks ago and has continued to smoke cigarettes. She has a history of frequent bronchitis and uses an albuterol inhaler at home. She was having cough and shortness of breath that was worse in the last several days to the point that she was not smoking because she was so short of breath. She came to the emergency department yesterday and was seen and evaluated. At that time she had seemed to improve with a breathing treatment and her chest x- ray showed some haziness in the bases of her lungs so she was started on steroids and a Z-Micah. She continued to feel short of breath and have difficulty with her breathing overnight. She states she woke up this morning and felt like she was gasping for breath. She had tried her albuterol inhaler at home with no effect. She was asking if she needed to be admitted to [facility] because her boyfriend had been admitted there after he had COVID and the only way he could get over his shortness of breath from the infection was to be admitted and placed on oxygen. She is wondering if she needs the same thing since she continues to be short of breath since she had Covid. Timing/Duration: Getting Worse (over the last 3 weeks or so her shortness of breath has worsened since she had Covid) Upon my arrival after breathing treatment the patient was feeling better with no shortness of breath at rest feeling fatigued. She had no night sweats chills or fever and had minimal sputum production. She states that she is through with cigarettes currently with no desire to smoke. Patient had no further difficulty on discharge maintaining oxygen saturations on metered-dose inhaler bronchodilator therapy only. This is likely due to the fact that she was not smoking and has recovered from COVID infection. Discussed the fact that she does qualify for chronic bronchitis likely has COPD but should continue to do well as long as she continues smoking cessation. The extreme importance of this for her future health was stressed and she continues to re port that she does not have a desire to smoke and plans to quit with no reported withdrawal symptoms. She was advised to follow-up with her PCP. She will be discharged on home medication which just includes bronchodilator therapy in the form of albuterol. She was sent with a tube spacer which seems to work better for her with no wheezing no reports of shortness of breath and O2 saturations in the lower 90s on room air. Labs (last 24 hrs) Laboratory Tests 12/10/21 11:02: SARS-CoV-2 RNA (RT-PCR) DetectedH 12/10/21 12:02: Glucometer 281H 12/10/21 15:58: Glucometer 178H 12/10/21 20:30: Glucometer 248H 12/11/21 05:00: Glucometer 150H 12/11/21 06:16: White Blood Count 10.1, Red Blood Count 5.43H, Hemoglobin 15.6, Hematocrit 48, Mean Corpuscular Volume 88, Mean Corpuscular Hemoglobin 29, Mean Corpuscular Hemoglobin Concent 33, Red Cell Distribution Width 13.1, Platelet Count 279, Mean Platelet Volume 9.3, Immature Granulocyte % (Auto) 0, Neutrophils (%) (Auto) 61, Lymphocytes (%) (Auto) 30, Monocytes (%) (Auto) 8, Eosinophils (%) (Auto) 0, Basophils (%) (Auto) 0, Neutrophils # (Auto) 6.2, Lymphocytes # (Auto) 3.0, Monocytes # (Auto) 0.8, Eosinophils # (Auto) 0.0, Basophils # (Auto) 0.0, Immature Granulocyte # (Auto) 0.0, Sodium Level 140, Potassium Level 3.7, Chloride Level 106, Carbon Dioxide Level 23, Anion Gap 11, Blood Urea Nitrogen 18, Creatinine 0.76, Estimat Glomerular Filtration Rate 91, BUN/Creatinine Ratio 24, Glucose Level 143H, Calcium Level 9.0 Patient resulted labs reviewed. Pending Labs Laboratory Tests 12/11/21 05:00: Glucometer 150 12/11/21 06:16: White Blood Count 10.1, Red Blood Count 5.43, Hemoglobin 15.6, Hematocrit 48, Mean Corpuscular Volume 88, Mean Corpuscular Hemoglobin 29, Mean Corpuscular Hemoglobin Concent 33, Red Cell Distribution Width 13.1, Platelet Count 279, Mean Platelet Volume 9.3, Immature Granulocyte % (Auto) 0, Neutrophils (%) (Auto) 61, Lymphocytes (%) (Auto) 30, Monocytes (%) (Auto) 8, Eosinophils (%) (Auto) 0, Basophils (%) (Auto) 0, Neutrophils # (Auto) 6.2, Lymphocytes # (Auto) 3.0, Monocytes # (Auto) 0.8, Eosinophils # (Auto) 0.0, Basophils # (Auto) 0.0, Immature Granulocyte # (Auto) 0.0, Sodium Level 140, Potassium Level 3.7, Chloride Level 106, Carbon Dioxide Level 23, Anion Gap 11, Blood Urea Nitrogen 18, Creatinine 0.76, Estimat Glomerular Filtration Rate 91, BUN/Creatinine Ratio 24, Glucose Level 143, Calcium Level 9.0 Discussion & Recommendations Discharge Planning: <30 minutes discharge planning Discharge Home Medications: Active Scripts Active [celebrex] 200 Cap 200 PO BID Azithromycin 250 Mg Tablet 250 Mg PO UD TAKE 2 TABLETS ON DAY ONE THEN TAKE 1 TABLET DAILY FOR FOUR MORE DAYS. Prednisone 20 Mg Tab 40 Mg PO DAILY . Reported Gabapentin 400 Mg Capsule 400 Mg PO QID Zanaflex (Tizanidine HCl) 4 Mg Tablet 4 Mg PO TID Rosuvastatin Calcium 40 Mg Tablet 40 Mg PO DAILY Lisinopril 10 Mg Tablet Oxycodon-Acetaminophen 7.5-325 (Oxycodone HCl/Acetaminophen) 1 Each Tablet Neurontin (Gabapentin) 400 Mg Cap 400 Mg PO DAILY Instructions to patient/family Please see electronic discharge instructions given to patient. Copy Copies To 1: DAVIN SRIVASTAVA MD, MARK D MD Dec 11, 2021 09:27
[2021-12-11 09:30] VITALS: BP 165/83
== END 2021-12-11 09:55 | disposition home or self-care (01) | DRG 202 ==
LOC: EDUNIT# 05:52 → ER FS 05:54 → 4TH 08:52
PROVIDERS: ADMIT Internal Medicine; ATTEND Internal Medicine
PROC: 8E0ZXY6 Isolation (ICD-10-PCS; principal; 2021-12-10)
DX: J20.9 Acute bronchitis, unspecified (principal); J44.0 Chronic obstructive pulmonary disease with (acute) lower respiratory infection; R06.02 Shortness of breath; U09.9 Post COVID-19 condition, unspecified; F17.210 Nicotine dependence, cigarettes, uncomplicated; R09.02 Hypoxemia; I10 Essential (primary) hypertension; M19.91 Primary osteoarthritis, unspecified site; M79.7 Fibromyalgia; E11.9 Type 2 diabetes mellitus without complications; Z88.1 Allergy status to other antibiotic agents; Z88.0 Allergy status to penicillin; Z79.52 Long term (current) use of systemic steroids
CPT/HCPCS: 36415; 80048; 80053; 82805; 82947; 83605; 83735; 85025; 86141; 87040; 87636; 94640; 94760

== ENCOUNTER → 2022-02-15 | Outpatient (CLI) | payer OTHER ==
[~2022-02-15] VITALS: Ht 160 cm; Wt 66.0 kg
[~2022-02-15] MED LIST changes: +AA8/1CAP3 PO; +GABA-490 PO; +LIDOCAINE 1% INJ 20 ML VIAL INJ ONE; +LIDOCAINE 1% INJ 20 ML VIAL ONE; +ROSU40TA23 PO; +TIZA4TAB11 PO; +celebrex PO
--- NOTE | 2022-02-15 11:42 | Diagnostic Imaging Report ---
INDICATION: Left breast mass. The patient presents for ultrasound-guided biopsy. DETAILS OF THE PROCEDURE: The patient was brought to the sonographic suite and placed on the table in the supine position. Ultrasound imaging over the left breast was performed to evaluate for an appropriate entry site. The left breast was then prepped and draped in the usual sterile fashion. A small amount of 1% lidocaine was utilized for local anesthesia. A total of three core biopsies was performed through the solid hypoechoic mass in the retroareolar left breast utilizing a 14-gauge Achieve needle. A marker clip was then deployed. Hemostasis was obtained using manual compression. The patient tolerated the procedure well and was sent for post procedure mammograms in satisfactory condition. IMPRESSION: Successful ultrasound guided core biopsy of the solid mass in the retroareolar left breast. Pathology results are currently pending. Dictated by: Dictated on workstation # [id number]
--- NOTE | 2022-02-15 11:45 | Diagnostic Imaging Report ---
INDICATION: Left breast mass and enlarged left axillary lymph node. Patient presents for biopsy. DETAILS OF THE PROCEDURE: The patient was brought to the sonographic suite and placed on the table in the supine position. Ultrasound imaging of the left axilla was performed to evaluate for an appropriate entry site. The left axilla was then prepped and draped in the usual sterile fashion. A small amount of 1% lidocaine was utilized for local anesthesia. A total of three passes was made into the enlarged left axillary lymph node utilizing a 14-gauge Achieve needle. Core biopsies were obtained. A marker clip was then deployed. Hemostasis was obtained using manual compression. The patient tolerated the procedure well and left the Department in stable condition. The patient underwent a post procedure mammogram following the procedure. IMPRESSION: Successful ultrasound-guided core biopsy of an enlarged left axillary lymph node. Pathology results are currently pending. Dictated by: Dictated on workstation # [id number]
--- NOTE | 2022-02-15 12:25 | Diagnostic Imaging Report ---
INDICATION: Left breast mass, status post biopsy. TECHNIQUE: Unilateral left 2D CC and ML mammography was performed after the patient underwent left breast and left axillary biopsy. FINDINGS: There is a marker clip within the lesion in the central left breast. There is also a marker clip in a lymph node in the left axilla. IMPRESSION: Clips within the left breast and a left axillary lymph node, status post ultrasound-guided core biopsy. Dictated by: Dictated on workstation # [id number]
== END ==
LOC: RAD 10:00
PROVIDERS: ATTEND Family Medicine
DX: N63.20 Unspecified lump in the left breast, unspecified quadrant (principal); R59.0 Localized enlarged lymph nodes; Z98.890 Other specified postprocedural states
CPT/HCPCS: 19083; 76942; 77065; G0279

== ENCOUNTER 2022-02-28 05:30 | Outpatient (CLI) | payer SELFPAY ==
[~2022-02-28] VITALS: Ht 160 cm; Wt 67.3 kg
[~2022-02-28 05:30] MED LIST changes: -LIDOCAINE 1% INJ 20 ML VIAL INJ ONE; -LIDOCAINE 1% INJ 20 ML VIAL ONE
[2022-03-01] MEDS ORDERED: CELE200C PO (13:47)
[2022-03-01] MEDS ORDERED: METF-397 PO (14:05)
== END 2022-03-01 14:01 | disposition home or self-care (01) ==
LOC: PREOP 05:30
PROVIDERS: ATTEND Surgery
DX: Z01.818 Encounter for other preprocedural examination (principal)

== ENCOUNTER → 2022-03-06 | Outpatient (CLI) | payer MEDICAID, OTHER ==
[~2022-03-06] MED LIST changes: +CATHETER FLUSH 10 ML SYR IV PRN; +CATHETER FLUSH 10 ML SYR IVP PRN; +CELE200C PO; +HOLD METFORMIN - RECEIVED CONTRAST 20 ML VIAL IV SCH; +IOHEXOL 350 MG/ML 100 ML (OMNIPAQUE 350) VIAL IV ONE; +METF-397 PO; +NS 100 ML (IVPB) BAG IV ONE
--- NOTE | 2022-03-06 13:51 | Diagnostic Imaging Report ---
PROCEDURE: CT chest, abdomen, and pelvis with contrast. TECHNIQUE: Multiple contiguous axial images were obtained through the chest, abdomen, and pelvis after the administration of intravenous contrast. Auto Exposure Controls were utilized during the CT exam to meet ALARA standards for radiation dose reduction. INDICATION: C50.912 Comparison is made with prior CT abdomen pelvis from 09/14/2020. CT CHEST: There is a masslike density in the inferior aspect of the left breast centrally measuring 2.3 cm and transverse diameter. Likely represents patient's known left breast neoplasm. Right axilla is unremarkable. There is an enlarged lymph node in the left axilla, likely the recently biopsied lymph node. No internal mammary lymphadenopathy is detected. A right peritracheal lymph node is slightly prominent 11 mm. No hilar lymphadenopathy is seen. There is no pericardial or pleural fluid is detected. Both lungs demonstrate centrilobular emphysematous changes. There is some scarring or atelectasis in the right upper lobe. There is also scarring or atelectasis in right middle lobe and lingula. No parenchymal nodules or masses are seen. Bony structures are unremarkable. IMPRESSION: 1. Left breast mass with a left axillary lymphadenopathy. There is a borderline lymph node in the right paratracheal location. No definite findings to suggest pulmonary metastatic disease are identified. CT abdomen and pelvis: There is an ill-defined region of low density in the anterior aspect of the right lobe the liver measuring 16 mm in transverse diameter. No other suspicious liver abnormalities are seen. Gallbladder is unremarkable. There is no biliary ductal dilatation. Pancreas and spleen are unremarkable. No adrenal mass is detected. Kidneys are unremarkable. Aorta is nonaneurysmal. No central, retroperitoneal or mesenteric lymphadenopathy is seen. The small and large bowel loops are of normal caliber. There is no obstruction. No free fluid or fluid collection is seen. No pelvic lymphadenopathy is identified. The bladder is decompressed. No definite osteolytic or blastic lesions are seen. IMPRESSION: Indeterminate ill-defined region of low density in the right lobe of the liver anteriorly. A liver mass cannot be entirely excluded and MRI with liver protocol would be useful for further evaluation. No abdominal or pelvic lymphadenopathy is detected. Dictated by: Dictated on workstation # [id number]
--- NOTE | 2022-03-06 16:05 | Diagnostic Imaging Report ---
INDICATION: Left breast carcinoma. TECHNIQUE: The patient was administered 24.4 mCi technetium 99m MDP intravenously and whole-body imaging was performed after a 3 hour delay. COMPARISON: No prior bone scans are available for comparison. FINDINGS: There is normal uptake of activity by the axial and appendicular skeleton. There is uptake by the kidneys with excretion into the urinary bladder. There are degenerative changes of the right knee. No suspicious foci are identified to suggest osseous metastatic disease. IMPRESSION: No scintigraphic evidence of osseous metastatic disease. Dictated by: Dictated on workstation # [id number]
== END ==
LOC: CARD 10:30
PROVIDERS: ATTEND Internal Medicine
DX: C50.912 Malignant neoplasm of unspecified site of left female breast (principal)
CPT/HCPCS: 71260; 74177; 78306; 93306; A9503

== ENCOUNTER 2022-03-07 06:58 | Day surgery (SDC) | payer MEDICAID, OTHER ==
[2022-03-07] VITALS (8 sets, daily range): BP systolic 92–146; BP diastolic 57–97
[~2022-03-07] VITALS: Ht 160 cm; Wt 67.3 kg
[~2022-03-07 06:58] MED LIST changes: -CATHETER FLUSH 10 ML SYR IV PRN; -CATHETER FLUSH 10 ML SYR IVP PRN; -HOLD METFORMIN - RECEIVED CONTRAST 20 ML VIAL IV SCH; -IOHEXOL 350 MG/ML 100 ML (OMNIPAQUE 350) VIAL IV ONE; -NS 100 ML (IVPB) BAG IV ONE
[2022-03-07] MEDS ORDERED: PROPOFOL INJECTION 50 ML IV ONE (07:07)
[2022-03-07] MEDS ORDERED: fentaNYL INJ 100 MCG/2 ML AMP ONE (07:08)
[2022-03-07] MEDS ORDERED: LIDOCAINE/EPI 2% 1:200,00 (XYLOCAINE) 20 ML VIAL ONE (07:08)
[2022-03-07] MEDS ORDERED: MIDAZOLAM 2 MG/2 ML (VERSED) VIAL ONE (07:08)
[2022-03-07] MEDS ORDERED: 0.9% SODIUM CHLORIDE PF INJ 20 ML VIAL ONE (07:08)
[2022-03-07] MEDS ORDERED: HEParin (CENTRAL IV FLUSH) 500 UNIT/5 ML SYR ONE (07:09)
[2022-03-07] MEDS: LACTATED RINGERS 1,000 ML IV PRN ×2 (07:47→09:12)
--- NOTE | 2022-03-07 08:17 | Progress Note-Pre Operative ---
Pre-Operative Progress Note H&P Reviewed The H&P was reviewed, patient examined and no changes noted. Time Seen by Provider: 08:14 Date H&P Reviewed: Mar 07, 2022 Time H&P Reviewed: 08:14 Pre-Operative Diagnosis: Left breast CA, Venous insufficiency DANYA PANCHAL DO Mar 07, 2022 08:17
[2022-03-07] MEDS ORDERED: ceFAZolin INJECTION 2,000 MG ONE (08:30)
[2022-03-07] MEDS ORDERED: ceFAZolin INJECTION 1,000 MG VIAL IV ONE (08:45)
--- NOTE | 2022-03-07 08:45 | Progress Note-Post Operative ---
Post-Operative Progess Note Surgeon (s)/Brake Repairer Bus (s) Surgeon DANYA PANCHAL DO Brake Repairer Bus: CHRISTINA GainesII Pre-Operative Diagnosis Left breast CA, Venous insufficiency Post-Operative Diagnosis same Procedure & Operative Findings Date of Procedure 03/07/22 Procedure Performed/Findings PROCEDURE: The patient was taken to the operating suite, was prepped and draped in the sterile fashion. A surgical pause was performed. Local anesthetic was infiltrated at the clavicle and along the tract to the right anterior chest, where more local was placed so the pocket could be created. Using an 18 gauge finder needle with negative inspiration the right subclavian vein was accessed on the first attempt and dark nonpulsatile blood was withdrawn. The wire was inserted and fluoroscopy assured proper placement. The needle was removed. The regular wire was inserted and fluoroscopy assured proper placement. The wire was then secured. A #11 blade scalpel was used to make an incision over the right chest and along guidewire. Cautery was used to dissect down to the pectoral fascia. A pocket was created with blunt dissection. The dilator sheath was then advanced over the wire under fluoroscopy and the dilator and wire were removed. The Groshong catheter was inserted through the sheath and the sheath was then removed. The Groshong wire was removed. The catheter was then tunneled to the right chest pocket. Fluoroscopy was used to cut to length and this was then attached to the port which was then placed within the pocket. The port was then accessed without difficulty. It was then flushed with saline and then heparin. The subcutaneous tissues were then reapproximated using 3-0 Vicryl. Finally the skin was closed with 4-0 undyed monocryl, 3 interrupted sutures. The areas were then washed and dried. Skin Affix was placed over incision. The insertion point of the neck Skin Affix was placed over the incision. The patient tolerated the procedure well without complication and was taken to recovery room in stable condition. Anesthesia Type IV sedation by ECONOMIC DEVELOPMENT MANAGER Estimated Blood Loss Estimated blood loss (mL): scant Specimens/Packing Specimens Removed none DANYA PANCHAL DO Mar 07, 2022 08:45
--- NOTE | 2022-03-07 08:47 | Discharge Inst-Surgical ---
Discharge Inst-Surgical Depart Medication/Instructions New, Converted or Re-Newed RX: Other (use home meds) Patient Instructions Follow up Appt: Make appointment for 11-14 days. [phone] Instructions: May shower in 24 hours, no tub bath or soaking. Use incentive spirometer at home as directed. No Smoking Skin/Wound Care: May remove bandages in am. You need to leave the Dermabond on incision it will fall off on it's own. Symptoms to Report: Appetite Changes, Extremity Discoloration, Numbness/Tingling, Swelling Increased, Bleeding Excessive, Eyesight Changes, Pain Increased, Urine Color Change, Constipation(Persistent), Fever over 101 degree F, Pain/Pressure in chest, Urinating Difficulty, Cough Up/Vomit Blood, Heart Beat Irreg/Pounding, Pain/Pressure in jaw, Cramps in feet or legs, Lightheadedness, Pain/Pressure in shoulder, Diarrhea(Persistent), Memory Changes Suddenly, Questions/Concerns, Weight gain consecutive days, Dizziness/Fainting, Nausea/Vomiting, Shortness of Breath, Weight gain over 2 pounds If questions or concerns contact your physician Or seek help at emergency department. Activity Activity Instructions: Avoid Stress to Incision Driving Instructions: No Driving/Refer to Diet Discharge Diet: No Restrictions Diet After 24 Hours: Clear Liquid if Nauseous If Any Problems/Questions/Issu: Contact Your Physician, Go to Emergency Room Skin/Wound Care Infection Signs and Symptoms: Increased Redness, Foul Odor of Wound, Increased Drainage, Skin Itchy or Has a Rash, Increased Swelling, Temperature Above 101 F Bathing Instructions: Shower Stitches/Dora/Dermabond Dis: DANYA Leyva DO Mar 07, 2022 08:47
[2022-03-07] MEDS ORDERED: HYDROmorphone 2 MG/ML VIAL (DILAUDID) IV ONE (09:00)
[2022-03-07] MEDS ORDERED: ONDANSETRON 4 MG/2 ML (SDV) Z0FRAN IVP PRN (09:00)
--- NOTE | 2022-03-07 10:05 | Anesthesia-General Post-Op ---
MAC Patient Condition Mental Status/LOC: Same as Preop Cardiovascular: Satisfactory Nausea/Vomiting: Absent Respiratory: Satisfactory Pain: Controlled Complications: Absent Post Op Complications Complications None Follow Up Care/Instructions Patient Instructions None needed. Anesthesiology Discharge Order Discharge Order Patient is doing well, no complaints, stable vital signs, no apparent adverse anesthesia problems. No complications reported per nursing. JULIANN ESCALANTE CRNA Mar 07, 2022 10:05
--- NOTE | 2022-03-07 10:35 | Diagnostic Imaging Report ---
INDICATION: Central line placement. IMPRESSION: 6 seconds of fluoroscopy and a single AP digital image of the chest was obtained in Surgery during right subclavian Groshong catheter placement. The image shows the catheter tip projecting over the SVC. Dictated by: Dictated on workstation # [id number]
== END 2022-03-07 10:05 | disposition home or self-care (01) ==
LOC: SDC 06:58
PROVIDERS: ATTEND Surgery
DX: C50.912 Malignant neoplasm of unspecified site of left female breast (principal); I87.2 Venous insufficiency (chronic) (peripheral); F17.210 Nicotine dependence, cigarettes, uncomplicated
CPT/HCPCS: 76000; 82947; 87081

== ENCOUNTER 2022-03-15 09:40 | Outpatient (CLI) | payer MEDICAID ==
[~2022-03-15] VITALS: Ht 160 cm; Wt 67.3 kg
== END 2022-03-15 10:10 | disposition home or self-care (01) ==
LOC: PREOP 09:40
PROVIDERS: ATTEND Specialist
DX: Z01.818 Encounter for other preprocedural examination (principal)

== ENCOUNTER 2022-03-16 05:55 | Day surgery (SDC) | payer MEDICAID ==
[~2022-03-16] VITALS: Ht 160 cm; Wt 67.3 kg
[~2022-03-16 05:55] MED LIST changes: -GADOTERATE 0.5 MMOL/ML (CLARISCAN) 15 ML VIAL IV ONE
[2022-03-16] MEDS ORDERED: TIMOLOL MALEATE 0.5% 5 ML (TIMOPTIC) BTL OU PRN (06:15)
[2022-03-16] MEDS ORDERED: LIDOCAINE PF 1% 2 ML VIAL IR PRN (06:15)
[2022-03-16] MEDS ORDERED: MOXIFLOXACIN OPHTH SOLN 5 MG/ML 0.3 ML SYRINGE OP ONE (06:15)
[2022-03-16] MEDS ORDERED: POVIDONE (BETADINE) OPHTH SOLN 5% 30 ML OP ONE (06:15)
[2022-03-16] MEDS: TETRACAINE 0.5% OPHTH SOLN 4 ML BTL (SINGLE DOSE ONLY) OU PRN ×4 (06:20→06:37)
[2022-03-16] MEDS: TROPICAMIDE 1% OPH SOLN (MYDRIACYL) 15 ML BTL OP SCH ×3 (06:26→06:37)
[2022-03-16] MEDS: PHENYLEPHRINE 10% OPHTH (NEO-SYN) 5 ML BTL OU SCH ×3 (06:26→06:37)
[2022-03-16 06:27] VITALS: BP 131/89
[2022-03-16] MEDS ORDERED: MIDAZOLAM 2 MG/2 ML (VERSED) VIAL ONE (07:26)
--- NOTE | 2022-03-16 07:30 | Ophthalmologist Pre-Op Note ---
Pre-Operative Progress Note H&P Reviewed The H&P was reviewed, patient examined and no changes noted. Date H&P Reviewed: Mar 16, 2022 Time H&P Reviewed: 07:30 Pre-Op Dx Cataract, Right Eye DIANA MORELOS MD Mar 16, 2022 07:30
--- NOTE | 2022-03-16 07:59 | Ophthalmology Operative Report ---
Cataract removal/placement IOL PREOPERATIVE DIAGNOSIS: 1. Mature Cataract Right Eye 2. Stain the anterior capsule with Vision Blue. POSTOPERATIVE DIAGNOSIS: 1. Mature Cataract Right Eye 2. Stain the anterior capsule with Vision Blue. PROCEDURE: 1. Cataract removal and placement of posterior chamber implant, right eye. 2. Stain the anterior capsule with Vision Blue. SURGEON: Alejandro Morelos ANESTHESIA: Topical with sedation COMPLICATIONS: None ESTIMATED BLOOD LOSS: Minimal DESCRIPTION OF PROCEDURE: After proper informed consent was obtained, the patient was taken to the Operating Room and the right eye was anesthetized with tetracaine. The right eye was then prepped and draped in the usual manner. A wire lid speculum was placed. A paracentesis was made at the left hand position. Preservative free lidocaine was injected into anterior chamber followed by viscoelastic. A clear corneal incision was made in the temporal position. A capsulorrhexis was performed and the central nuclear and cortical material were removed. Vision blue was used to visualize capsule. The posterior capsule was polished and Sha AU00T0 was placed into the capsular bag. The residual viscoelastic was aspirated and balanced saline solution was injected into the anterior chamber. Moxifloxacin was injected into the anterior chamber. The wound was checked and found to be water tight. The patient tolerated the procedure well without complications. AELJANDRO MORELOS MD Mar 16, 2022 07:59
[2022-03-16 08:05] VITALS: BP 131/90
[2022-03-16] MEDS ORDERED: acetaZOLAMIDE ER 500 MG CAP (DIAMOX SEQUELS) PO ONE (09:15)
--- NOTE | 2022-03-16 13:16 | Anesthesia-General Post-Op ---
MAC Patient Condition Mental Status/LOC: Same as Preop Cardiovascular: Satisfactory Nausea/Vomiting: Absent Respiratory: Satisfactory Pain: Controlled Complications: Absent Post Op Complications Complications None Follow Up Care/Instructions Patient Instructions None needed. Anesthesiology Discharge Order Discharge Order Patient is doing well, no complaints, stable vital signs, no apparent adverse anesthesia problems. No complications reported per nursing. JOLYNN DOVE CRNA Mar 16, 2022 13:16
== END 2022-03-16 08:05 | disposition home or self-care (01) ==
LOC: SDC 05:55
PROVIDERS: ATTEND Specialist
DX: H25.89 Other age-related cataract (principal); E11.36 Type 2 diabetes mellitus with diabetic cataract; E11.40 Type 2 diabetes mellitus with diabetic neuropathy, unspecified; Z85.3 Personal history of malignant neoplasm of breast; Z79.84 Long term (current) use of oral hypoglycemic drugs

== ENCOUNTER → 2022-03-16 | Outpatient (CLI) | payer MEDICAID ==
[~2022-03-16] MED LIST changes: +GADOTERATE 0.5 MMOL/ML (CLARISCAN) 15 ML VIAL IV ONE
--- NOTE | 2022-03-16 15:08 | Diagnostic Imaging Report ---
EXAMINATION: MRI of the abdomen with and without contrast. TECHNIQUE: Multiplanar, multisequence MR images of the abdomen were obtained with and without intravenous contrast. HISTORY: INFILTRATING DUCT CARCINOMA OF LEFT BREAST COMPARISON: 03/06/2022 FINDINGS: Liver: The liver is normal in signal and smooth in contour. There is a 2.0 cm lesion within hepatic segment 5 which demonstrates T2 hyperintensity with peripheral discontiguous nodular enhancement and progressive filling on delayed images. No other suspicious hepatic lesion. The portal and hepatic veins are patent. Gallbladder and Bile Ducts: There is no intrahepatic or extrahepatic bile duct dilation. There are no filling defects in the gallbladder or common bile duct. Pancreas: The pancreas is normal in volume, signal intensity and enhancement. There is no dilation of the main pancreatic duct. Kidneys: There is no hydronephrosis. Adrenal glands: There is no adrenal gland nodule or thickening. Spleen: The spleen is normal in size without focal lesion. Lymph Nodes: There is no suspicious lymphadenopathy. Other: There is no ascites. IMPRESSION: 1. A 2.0 cm lesion within hepatic segment 5 which is imaging characteristics suggesting a hemangioma. Recommend continued attention on followup imaging given history of breast cancer. Dictated by: Dictated on workstation # [id number]
== END ==
LOC: RAD 13:39
PROVIDERS: ATTEND Internal Medicine
DX: C50.912 Malignant neoplasm of unspecified site of left female breast (principal); K76.9 Liver disease, unspecified
CPT/HCPCS: 74183

== ENCOUNTER 2022-03-21 11:03 | Day surgery (SDC) | payer MEDICAID ==
[2022-03-21] VITALS (8 sets, daily range): BP systolic 108–127; BP diastolic 68–84
[~2022-03-21] VITALS: Ht 160 cm; Wt 67.3 kg
[2022-03-21] MEDS ORDERED: 0.9% SODIUM CHLORIDE PF INJ 20 ML VIAL ONE (11:24)
[2022-03-21] MEDS ORDERED: HEParin (CENTRAL IV FLUSH) 500 UNIT/5 ML SYR ONE (11:25)
[2022-03-21] MEDS ORDERED: LIDOCAINE/EPI 2% 1:100,00 (XYLOCAINE) 20 ML VIAL ONE (11:25)
[2022-03-21] MEDS ORDERED: CLINDAMYCIN 600 MG/50 ML IVPB 50 ML IV ONE (11:45)
[2022-03-21] MEDS ORDERED: PROPOFOL INJECTION 50 ML IV ONE (12:00)
[2022-03-21] MEDS ORDERED: MIDAZOLAM 2 MG/2 ML (VERSED) VIAL ONE (12:00)
[2022-03-21] MEDS ORDERED: LIDOCAINE PF 2% 5 ML (XYLOCAINE) VIAL ONE (12:00)
[2022-03-21] MEDS ORDERED: LACTATED RINGERS 1,000 ML IV PRN (12:30)
--- NOTE | 2022-03-21 13:15 | Progress Note-Post Operative ---
Post-Operative Progess Note Surgeon (s)/Metal Bending Machine Operator (s) Surgeon DANYA PANCHAL DO Metal Bending Machine Operator: CHRISTINA GainesII Pre-Operative Diagnosis Malfunctioning port, Left breast CA, Venous insufficiency Post-Operative Diagnosis Same - port in good position, catheter up in Right IJ Procedure & Operative Findings Date of Procedure 03/21/22 Procedure Performed/Findings PROCEDURE: Removal of port COMPLICATIONS: None. INDICATIONS: The patient is a 56 year-old female who had a port previously placed. Port is malfunctioning, unable to access and catheter has flipped up into the internal jugular. The patient was explained risk and benefits of the procedure and wished to proceed with procedure. Consent was signed on the chart. PROCEDURE: The patient was taken to the operating suite and was prepped and draped in sterile fashion. A surgical pause was performed. Local anesthetic was infiltrated to the area around the port. A number 15 blade scalpel was used to make an incision. Cautery was used to dissect down to the port which was then grasped and then dissected around. The catheter was removed in its entirety. The port was then able to be dissected out of the pocket and elevated. The wound was then irrigated with copious amounts of irrigation. Hemostasis had been achieved. PROCEDURE: [Right] internal jugular port placement using ultrasound guidance. COMPLICATIONS: None. PROCEDURE: Ultrasound was used to locate the internal jugular vein. Once located anesthetic was infiltrated above it. Using micro-access kit, the right internal vein was accessed. Dark nonpulsatile blood was withdrawn. The wire was inserted. Fluoroscopy assured proper placement. The needle was removed. The micro-access dilator was advanced over the wire and the wire was removed. The regular wire was inserted and fluoroscopy assured proper placement. Next the previous port was removed and then checked to make sure it had not dislodged the wire. The wire was then secured. Local anesthetic was used to anes- thetize from the neck for tunneling down to the right chest and for pocket creation. A #11 blade scalpel was used to make a stab incision along the wire in the neck. Used the previous pocket for port placement. The dilator sheath was then advanced over the wire under fluoroscopy and the dilator and wire were removed. The Groshong catheter was inserted through the sheath and the sheath was then removed. The Groshong wire was removed. The catheter was then tunneled to the right chest pocket. Fluoroscopy was used to cut to length and this was then attached to the port which was then placed within the pocket. The port was sutured in place with 3-0 Prolened down to the chest wall. Port was then accessed without difficulty. It was then flushed with saline and then heparin. The subcutaneous tissues were then re- approximated using 3-0 Vicryl and finally closed skin with 4-0 undyed monocryl. The areas were then washed and dried. Skin Affix was placed over incision. The port was accessed through the skin and left accessed for Chemotherapy tomorrow. The insertion point of the neck had Skin Affix placed over the incision and bandaid. The patient tolerated the procedure well without complication and was taken to recovery room in stable condition. Anesthesia Type IV sedation by GRANITE BLOCK PAVER Estimated Blood Loss Estimated blood loss (mL): scant Specimens/Packing Specimens Removed Nelly-cath removed, not sent to Pathology DANYA PANCHAL DO Mar 21, 2022 13:15
--- NOTE | 2022-03-21 13:17 | Discharge Inst-Surgical ---
Discharge Inst-Surgical Depart Medication/Instructions New, Converted or Re-Newed RX: Other (use home meds) Activity Activity as Tolerated: Yes Activity Instructions: Avoid Stress to Incision Diet Discharge Diet: No Restrictions Diet After 24 Hours: Clear Liquid if Nauseous If Any Problems/Questions/Issu: Contact Your Physician, Go to Emergency Room Skin/Wound Care Infection Signs and Symptoms: Increased Redness, Foul Odor of Wound, Increased Drainage, Skin Itchy or Has a Rash, Increased Swelling, Temperature Above 101 F Bathing Instructions: Shower Stitches/Dora/Dermabond Dis: Dermabond Ice Pack: Ice On and Off Site DANYA PANCHAL DO Mar 21, 2022 13:17
--- NOTE | 2022-03-21 13:25 | Anesthesia-General Post-Op ---
MAC Patient Condition Mental Status/LOC: Same as Preop Cardiovascular: Satisfactory Nausea/Vomiting: Absent Respiratory: Satisfactory Pain: Controlled Complications: Absent Post Op Complications Complications None Follow Up Care/Instructions Patient Instructions None needed. Anesthesiology Discharge Order Discharge Order Patient is doing well, no complaints, stable vital signs, no apparent adverse anesthesia problems. No complications reported per nursing. GORDO BROOKE CRNA Mar 21, 2022 13:25
--- NOTE | 2022-03-21 17:00 | Diagnostic Imaging Report ---
INDICATION: Port-A-Cath placement. IMPRESSION: 3.8 seconds fluoroscopy and single AP digital image was used in surgery for Dr. Rodriguez during right IJ Port-A-Cath insertion. Image shows catheter tip projecting over the cavoatrial junction. Dictated by: Dictated on workstation # [id number]
== END 2022-03-21 14:30 ==
LOC: SDC 11:03
PROVIDERS: ATTEND Surgery
DX: T82.598A Other mechanical complication of other cardiac and vascular devices and implants, initial encounter (principal); Z80.3 Family history of malignant neoplasm of breast; I87.2 Venous insufficiency (chronic) (peripheral)
CPT/HCPCS: 76000; 82947; 87081

== ENCOUNTER 2022-03-23 14:24 | Outpatient (RCR) | payer MEDICAID, OTHER ==
[2022-02-26 10:38] LABS: BASOPHILS # (AUTO) 0.1 10^3/uL (0.0-0.1); BASOPHILS % (AUTO) 1 % (0-10); EOSINOPHILS # (AUTO) 0.7 10^3/uL (0.0-0.3); EOSINOPHILS % (AUTO) 6 % (0-10); HEMATOCRIT 50 % (35-52); HEMOGLOBIN 16.1 g/dL (11.5-16.0); LYMPHOCYTES # (AUTO) 2.8 10^3/uL (1.0-4.0); LYMPHOCYTES % (AUTO) 23 % (12-44); MEAN CORPUSCULAR HEMOGLOBIN 29 pg (25-34); MEAN CORPUSCULAR HGB CONC 32 g/dL (32-36); MEAN CORPUSCULAR VOLUME 90 fL (80-99); MEAN PLATELET VOLUME 9.5 fL (9.0-12.2); MONOCYTES # (AUTO) 0.8 10^3/uL (0.0-1.0); MONOCYTES % (AUTO) 6 % (0-12); NEUTROPHILS % (AUTO) 65 % (42-75); PLATELET COUNT 251 10^3/uL (130-400); WHITE BLOOD COUNT 12.4 10^3/uL (4.3-11.0)
[2022-02-26 10:54] LABS: ALBUMIN 4.3 GM/DL (3.2-4.5); BILIRUBIN,TOTAL 0.3 MG/DL (0.1-1.0); CALCIUM 9.3 MG/DL (8.5-10.1); CREATININE SERUM 0.81 MG/DL (0.60-1.30); POTASSIUM 4.3 MMOL/L (3.6-5.0); TOTAL PROTEIN 6.9 GM/DL (6.4-8.2)
[2022-03-21 10:08] LABS: BASOPHILS # (AUTO) 0.1 10^3/uL (0.0-0.1); BASOPHILS % (AUTO) 1 % (0-10); EOSINOPHILS # (AUTO) 0.6 10^3/uL (0.0-0.3); EOSINOPHILS % (AUTO) 6 % (0-10); HEMATOCRIT 50 % (35-52); HEMOGLOBIN 16.4 g/dL (11.5-16.0); LYMPHOCYTES % (AUTO) 27 % (12-44); MEAN CORPUSCULAR HEMOGLOBIN 29 pg (25-34); MEAN CORPUSCULAR HGB CONC 33 g/dL (32-36); MEAN CORPUSCULAR VOLUME 90 fL (80-99); MEAN PLATELET VOLUME 9.3 fL (9.0-12.2); MONOCYTES # (AUTO) 0.8 10^3/uL (0.0-1.0); MONOCYTES % (AUTO) 8 % (0-12); NEUTROPHILS # (AUTO) 6.6 10^3/uL (1.8-7.8); NEUTROPHILS % (AUTO) 59 % (42-75); PLATELET COUNT 225 10^3/uL (130-400); WHITE BLOOD COUNT 11.2 10^3/uL (4.3-11.0)
--- NOTE | 2022-03-21 10:17 | Diagnostic Imaging Report ---
INDICATION: Malpositioned Port-A-Cath. TECHNIQUE/COMPARISON: A frontal chest was obtained at 10:00 AM and compared to 12/09/2021. FINDINGS: The heart and mediastinal silhouette are normal in appearance. The lungs are clear. There is no pneumothorax or pleural fluid. A Port-A-Cath is seen over the right chest. The catheter enters the right subclavian vein and passes up the right internal jugular vein with the tip not visualized. IMPRESSION: Malpositioned Port-A-Cath with the catheter passing up the right internal jugular vein above the level of the film. No acute process in the chest otherwise. Dictated by: Dictated on workstation # [id number]
[2022-03-21 10:25] LABS: ALBUMIN 4.3 GM/DL (3.2-4.5); BILIRUBIN,TOTAL 0.5 MG/DL (0.1-1.0); CALCIUM 9.2 MG/DL (8.5-10.1); CREATININE SERUM 0.7 MG/DL (0.60-1.30); POTASSIUM 4.2 MMOL/L (3.6-5.0); TOTAL PROTEIN 6.8 GM/DL (6.4-8.2)
[~2022-03-23] VITALS: Ht 160 cm; Wt 66.7 kg
[~2022-03-23 14:24] MED LIST changes: +CARBOPLATIN IV SCH; +D5W IV SCH; +DEXAMETHASONE IV SCH; +DOCETAXEL IV SCH; +FOSAPREPITANT (CANCER CENTER) 150 MG in NS (IVPB) CANCER CENTER ONLY 150 ML IV SCH; +HEParin (CENTRAL IV FLUSH) 500 UNIT/5 ML SYR IV PRN; +NS IV 1000 ML (CANCER CTR) IV SCH; +NS IV SCH; +PALONOSETRON HCL 0.25 MG, dexAMETHasone INJECTION 10 MG in NS (IVPB) 50 ML IV SCH; +PALONOSETRON HCL IV SCH; +PEGFILGRASTIM-BMEZ 6 MG/0.6 ML ZIEXTENZO SQ SCH; +PERTUZUMAB IV SCH; +TRASTUZUMAB PKRB IV SCH; +diphenhydrAMINE 50 MG/ML INJ (BENADRYL) IV PRN
== END 2022-03-24 | disposition home or self-care (01) ==
LOC: ONC 14:24
PROVIDERS: ATTEND Internal Medicine
DX: Z51.11 Encounter for antineoplastic chemotherapy (principal); C50.912 Malignant neoplasm of unspecified site of left female breast; I87.2 Venous insufficiency (chronic) (peripheral); I10 Essential (primary) hypertension; E11.9 Type 2 diabetes mellitus without complications
CPT/HCPCS: 36415; 36591; 71045; 80053; 85025; 96360; 96367; 96375; 96413; 96415; 96417; 99213; 99214

== ENCOUNTER 2022-03-30 06:00 | Day surgery (SDC) | payer MEDICAID ==
[~2022-03-30] VITALS: Ht 160 cm; Wt 64.0 kg
[~2022-03-30 06:00] MED LIST changes: -CARBOPLATIN IV SCH; -D5W IV SCH; -DEXAMETHASONE IV SCH; -DOCETAXEL IV SCH; -FOSAPREPITANT (CANCER CENTER) 150 MG in NS (IVPB) CANCER CENTER ONLY 150 ML IV SCH; -HEParin (CENTRAL IV FLUSH) 500 UNIT/5 ML SYR IV PRN; -NS IV 1000 ML (CANCER CTR) IV SCH; -NS IV SCH; -PALONOSETRON HCL 0.25 MG, dexAMETHasone INJECTION 10 MG in NS (IVPB) 50 ML IV SCH; -PALONOSETRON HCL IV SCH; -PEGFILGRASTIM-BMEZ 6 MG/0.6 ML ZIEXTENZO SQ SCH; -PERTUZUMAB IV SCH; -TRASTUZUMAB PKRB IV SCH; -diphenhydrAMINE 50 MG/ML INJ (BENADRYL) IV PRN
[2022-03-30 06:15] VITALS: BP 115/79
[2022-03-30] MEDS ORDERED: TIMOLOL MALEATE 0.5% 5 ML (TIMOPTIC) BTL OU PRN (06:30)
[2022-03-30] MEDS ORDERED: LIDOCAINE PF 1% 2 ML VIAL IR PRN (06:30)
[2022-03-30] MEDS ORDERED: POVIDONE (BETADINE) OPHTH SOLN 5% 30 ML OP ONE (06:30)
[2022-03-30] MEDS ORDERED: MOXIFLOXACIN OPHTH SOLN 5 MG/ML 0.3 ML SYRINGE OP ONE (06:30)
[2022-03-30] MEDS: TETRACAINE 0.5% OPHTH SOLN 4 ML BTL (SINGLE DOSE ONLY) OU PRN ×4 (06:33→06:49)
[2022-03-30] MEDS: TROPICAMIDE 1% OPH SOLN (MYDRIACYL) 15 ML BTL OP SCH ×3 (06:39→06:50)
[2022-03-30] MEDS: PHENYLEPHRINE 10% OPHTH (NEO-SYN) 5 ML BTL OU SCH ×3 (06:39→06:50)
--- NOTE | 2022-03-30 06:39 | Ophthalmologist Pre-Op Note ---
Pre-Operative Progress Note H&P Reviewed The H&P was reviewed, patient examined and no changes noted. Date H&P Reviewed: March 30, 2022 Time H&P Reviewed: 06:39 Pre-Op Dx Cataract, Left Eye DIANA MORELOS MD March 30, 2022 06:39
[2022-03-30] MEDS ORDERED: MIDAZOLAM 2 MG/2 ML (VERSED) VIAL ONE (07:23)
--- NOTE | 2022-03-30 07:41 | Ophthalmology Operative Report ---
Cataract removal/placement IOL PREOPERATIVE DIAGNOSIS: Cataract Left Eye POSTOPERATIVE DIAGNOSIS: Cataract Left Eye PROCEDURE: Cataract removal and placement of posterior chamber implant, left eye SURGEON: Alejandro Morelos ANESTHESIA: Topical with sedation COMPLICATIONS: None ESTIMATED BLOOD LOSS: Minimal DESCRIPTION OF PROCEDURE: After proper informed consent was obtained, the patient, a 56 female, was taken to the Operating Room and the left eye was anesthetized with tetracaine. The left eye was then prepped and draped in the usual manner. A wire lid speculum was placed. A paracentesis was made at the left hand position. Preservative free lidocaine was injected into the anterior chamber followed by viscoelastic. A clear corneal incision was made in the temporal position. A capsulorrhexis was preformed and the central nuclear and cortical material were removed. The posterior capsule was polished and an Sha 25.0 AU00T0 was placed into the capsular bag. The residual viscoelastic was aspirated and balanced saline solution was injected into the anterior chamber. Moxifloxacin was injected into the anterior chamber. The wound was checked and found to be water tight. The patient tolerated the procedure well without complications. ALEJANDRO MORELOS MD March 30, 2022 07:41
[2022-03-30 07:46] VITALS: BP 120/81
[2022-03-30] MEDS ORDERED: acetaZOLAMIDE ER 500 MG CAP (DIAMOX SEQUELS) PO ONE (09:00)
--- NOTE | 2022-03-30 14:26 | Anesthesia-General Post-Op ---
MAC Patient Condition Mental Status/LOC: Same as Preop Cardiovascular: Satisfactory Nausea/Vomiting: Absent Respiratory: Satisfactory Pain: Controlled Complications: Absent Post Op Complications Complications None Follow Up Care/Instructions Patient Instructions None needed. Anesthesiology Discharge Order Discharge Order Patient is doing well, no complaints, stable vital signs, no apparent adverse anesthesia problems. No complications reported per nursing. MARTIN WILSON CRNA March 30, 2022 14:26
== END 2022-03-30 07:50 | disposition home or self-care (01) ==
LOC: SDC 06:00
PROVIDERS: ATTEND Specialist
DX: E11.36 Type 2 diabetes mellitus with diabetic cataract (principal); H25.9 Unspecified age-related cataract; F17.200 Nicotine dependence, unspecified, uncomplicated; Z79.84 Long term (current) use of oral hypoglycemic drugs; Z85.118 Personal history of other malignant neoplasm of bronchus and lung

== ENCOUNTER 2022-04-12 13:02 | Outpatient (RCR) | payer MEDICAID ==
[2022-04-11 09:09] LABS: BASOPHILS # (AUTO) 0.1 10^3/uL (0.0-0.1); BASOPHILS % (AUTO) 1 % (0-10); EOSINOPHILS % (AUTO) 0 % (0-10); HEMATOCRIT 45 % (35-52); HEMOGLOBIN 14.9 g/dL (11.5-16.0); LYMPHOCYTES # (AUTO) 2.5 10^3/uL (1.0-4.0); LYMPHOCYTES % (AUTO) 25 % (12-44); MEAN CORPUSCULAR HEMOGLOBIN 29 pg (25-34); MEAN CORPUSCULAR HGB CONC 33 g/dL (32-36); MEAN CORPUSCULAR VOLUME 89 fL (80-99); MEAN PLATELET VOLUME 8.9 fL (9.0-12.2); MONOCYTES # (AUTO) 0.9 10^3/uL (0.0-1.0); MONOCYTES % (AUTO) 9 % (0-12); NEUTROPHILS # (AUTO) 6.6 10^3/uL (1.8-7.8); NEUTROPHILS % (AUTO) 65 % (42-75); PLATELET COUNT 286 10^3/uL (130-400); WHITE BLOOD COUNT 10.1 10^3/uL (4.3-11.0)
[2022-04-11 09:29] LABS: ALBUMIN 4.1 GM/DL (3.2-4.5); BILIRUBIN,TOTAL 0.4 MG/DL (0.1-1.0); CALCIUM 9.2 MG/DL (8.5-10.1); CREATININE SERUM 0.71 MG/DL (0.60-1.30); POTASSIUM 4.1 MMOL/L (3.6-5.0); TOTAL PROTEIN 6.5 GM/DL (6.4-8.2)
[~2022-04-12 13:02] MED LIST changes: +CARBOPLATIN IV SCH; +D5W IV SCH; +DEXAMETHASONE IV SCH; +DOCETAXEL IV SCH; +FOSAPREPITANT (CANCER CENTER) 150 MG in NS (IVPB) CANCER CENTER ONLY 150 ML IV SCH; +HEParin (CENTRAL IV FLUSH) 500 UNIT/5 ML SYR IV PRN; +NORMAL SALINE IV SCH; +NS IV 1000 ML (CANCER CTR) IV SCH; +NS IV SCH; +PALONOSETRON HCL IV SCH; +PEGFILGRASTIM 6 MG/0.6 ML ONPRO KIT SQ SCH; +PEGFILGRASTIM-BMEZ 6 MG/0.6 ML ZIEXTENZO SQ SCH; +PERTUZUMAB IV SCH; +TRASTUZUMAB PKRB IV SCH; +diphenhydrAMINE 50 MG/ML INJ (BENADRYL) IV PRN
== END 2022-04-24 | disposition home or self-care (01) ==
LOC: ONC 13:02
PROVIDERS: ATTEND Internal Medicine
DX: Z51.11 Encounter for antineoplastic chemotherapy (principal); C50.912 Malignant neoplasm of unspecified site of left female breast; M79.7 Fibromyalgia; M89.8X9 Other specified disorders of bone, unspecified site
CPT/HCPCS: 36591; 80053; 85025; 96367; 96375; 96413; 96417; 99213

== ENCOUNTER → 2022-05-07 | Outpatient (CLI) | payer MEDICAID ==
[~2022-05-07] MED LIST changes: -CARBOPLATIN IV SCH; -D5W IV SCH; -DEXAMETHASONE IV SCH; -DOCETAXEL IV SCH; -FOSAPREPITANT (CANCER CENTER) 150 MG in NS (IVPB) CANCER CENTER ONLY 150 ML IV SCH; -HEParin (CENTRAL IV FLUSH) 500 UNIT/5 ML SYR IV PRN; -NORMAL SALINE IV SCH; -NS IV 1000 ML (CANCER CTR) IV SCH; -NS IV SCH; -PALONOSETRON HCL IV SCH; -PEGFILGRASTIM 6 MG/0.6 ML ONPRO KIT SQ SCH; -PEGFILGRASTIM-BMEZ 6 MG/0.6 ML ZIEXTENZO SQ SCH; -PERTUZUMAB IV SCH; -TRASTUZUMAB PKRB IV SCH; -diphenhydrAMINE 50 MG/ML INJ (BENADRYL) IV PRN
--- NOTE | 2022-05-07 13:31 | Diagnostic Imaging Report ---
INDICATION: Left breast carcinoma. TIME OF EXAM: 12:05 PM. COMPARISON: Correlation is made with the prior chest from 12/09/2021. FINDINGS: The heart size is stable. The right chest wall port has its tip at the SVC/right atrial junction. The lungs are clear. No infiltrates are seen. There is no effusion or pneumothorax. IMPRESSION: Right chest wall port with the tip at the SVC/right atrial junction. No acute feature is detected. Dictated by: Dictated on workstation # [id number]
== END ==
LOC: RAD 11:50
PROVIDERS: ATTEND Internal Medicine
DX: C50.912 Malignant neoplasm of unspecified site of left female breast (principal)
CPT/HCPCS: 71046

== ENCOUNTER → 2022-05-15 | Outpatient (CLI) | payer MEDICAID ==
--- NOTE | 2022-05-15 10:01 | Diagnostic Imaging Report ---
CLINICAL INDICATION: Patient with COPD. EXAM: Chest x-ray, PA and lateral views. COMPARISON: Chest x-ray dated 05/07/2022. FINDINGS: The Infusaport is again seen overlying the right chest in stable position. Lungs/pleura: There is interval development of a roughly 18 mm area of slightly rounded appearing opacity in the periphery of the right lung base/costophrenic angle region which was not seen on the prior study. The remainder of the lungs is clear and stable. Slightly hyperinflated lungs are seen. There is no pneumothorax. There is no pleural effusion. Mediastinum: Unremarkable. Pulmonary vasculature: Unremarkable. Heart: Unremarkable. Bones/extrathoracic soft tissue: There are degenerative spurs involving the thoracic spine. IMPRESSION: 1: There is interval development of a roughly 1.7 cm rounded-like opacity involving the periphery of the right lung base/costophrenic angle region. This was not seen on the prior study and an infiltrate or area of atelectasis may be considered. A followup chest x-ray is suggested to evaluate for interval resolution of this finding. 2: Otherwise, there is no radiographic evidence of acute cardiopulmonary process. Dictated by: Dictated on workstation # [id number]
== END ==
LOC: RAD FS 09:25
PROVIDERS: ATTEND Family Medicine
DX: J44.9 Chronic obstructive pulmonary disease, unspecified (principal)
CPT/HCPCS: 71046

== ENCOUNTER → 2022-05-18 | Outpatient (CLI) | payer MEDICAID | LOC: CARD 12:00 | PROVIDERS: ATTEND Internal Medicine | DX: C50.912 Malignant neoplasm of unspecified site of left female breast (principal) | CPT/HCPCS: 93308 ==

== ENCOUNTER 2022-05-21 09:21 | Outpatient (RCR) | payer MEDICAID ==
[2022-05-02 09:25] LABS: BASOPHILS % (AUTO) 0 % (0-10); EOSINOPHILS % (AUTO) 0 % (0-10); HEMATOCRIT 44 % (35-52); HEMOGLOBIN 14.6 g/dL (11.5-16.0); LYMPHOCYTES # (AUTO) 1.1 10^3/uL (1.0-4.0); LYMPHOCYTES % (AUTO) 7 % (12-44); MEAN CORPUSCULAR HEMOGLOBIN 30 pg (25-34); MEAN CORPUSCULAR HGB CONC 33 g/dL (32-36); MEAN CORPUSCULAR VOLUME 90 fL (80-99); MEAN PLATELET VOLUME 9.2 fL (9.0-12.2); MONOCYTES # (AUTO) 0.7 10^3/uL (0.0-1.0); MONOCYTES % (AUTO) 4 % (0-12); NEUTROPHILS # (AUTO) 14.6 10^3/uL (1.8-7.8); NEUTROPHILS % (AUTO) 89 % (42-75); PLATELET COUNT 243 10^3/uL (130-400); WHITE BLOOD COUNT 16.5 10^3/uL (4.3-11.0)
[2022-05-02 09:39] LABS: ALBUMIN 4.3 GM/DL (3.2-4.5)
[2022-05-02 09:40] LABS: POTASSIUM 4.2 MMOL/L (3.6-5.0)
[2022-05-02 09:41] LABS: CALCIUM 9.3 MG/DL (8.5-10.1)
[2022-05-02 09:42] LABS: TOTAL PROTEIN 6.9 GM/DL (6.4-8.2)
[2022-05-02 09:44] LABS: BILIRUBIN,TOTAL 0.4 MG/DL (0.1-1.0)
[2022-05-02 09:46] LABS: CREATININE SERUM 0.71 MG/DL (0.60-1.30)
[~2022-05-21 09:21] MED LIST changes: +CARBOPLATIN IV SCH; +D5W IV SCH; +DEXAMETHASONE IV SCH; +DOCETAXEL IV SCH; +FOSAPREPITANT (CANCER CENTER) 150 MG in NS (IVPB) CANCER CENTER ONLY 150 ML IV SCH; +HEParin (CENTRAL IV FLUSH) 500 UNIT/5 ML SYR IV PRN; +NORMAL SALINE IV SCH; +NS IV 1000 ML (CANCER CTR) IV SCH; +NS IV SCH; +PALONOSETRON HCL IV SCH; +PEGFILGRASTIM-BMEZ 6 MG/0.6 ML ZIEXTENZO SQ SCH; +PERTUZUMAB IV SCH; +TRASTUZUMAB PKRB IV SCH; +diphenhydrAMINE 50 MG/ML INJ (BENADRYL) IV PRN
== END 2022-05-24 | disposition home or self-care (01) ==
LOC: ONC 09:21
PROVIDERS: ATTEND Internal Medicine
DX: Z51.11 Encounter for antineoplastic chemotherapy (principal); C50.912 Malignant neoplasm of unspecified site of left female breast; M79.7 Fibromyalgia; M89.8X9 Other specified disorders of bone, unspecified site; I10 Essential (primary) hypertension; E11.9 Type 2 diabetes mellitus without complications
CPT/HCPCS: 36591; 80053; 85025; 96367; 96372; 96375; 96413; 96417; 99213

== ENCOUNTER → 2022-05-29 | Outpatient (CLI) | payer MEDICAID ==
[~2022-05-29] MED LIST changes: -CARBOPLATIN IV SCH; -D5W IV SCH; -DEXAMETHASONE IV SCH; -DOCETAXEL IV SCH; -FOSAPREPITANT (CANCER CENTER) 150 MG in NS (IVPB) CANCER CENTER ONLY 150 ML IV SCH; -HEParin (CENTRAL IV FLUSH) 500 UNIT/5 ML SYR IV PRN; -NORMAL SALINE IV SCH; -NS IV 1000 ML (CANCER CTR) IV SCH; -NS IV SCH; -PALONOSETRON HCL IV SCH; -PEGFILGRASTIM-BMEZ 6 MG/0.6 ML ZIEXTENZO SQ SCH; -PERTUZUMAB IV SCH; -TRASTUZUMAB PKRB IV SCH; -diphenhydrAMINE 50 MG/ML INJ (BENADRYL) IV PRN
--- NOTE | 2022-05-29 14:43 | Diagnostic Imaging Report ---
CT CHEST WO TECHNIQUE: Multiple contiguous axial images were obtained through the chest without the use of intravenous contrast. All CT scans use one or more of the following dose optimizing techniques: automated exposure control, MA and/or KvP adjustment based on a patient size and exam type, or iterative reconstruction. INDICATION: Acute respiratory failure. Breast cancer. COMPARISON: 03/06/2022 FINDINGS: Lungs and airway: Minimal retained secretions within the trachea. Severe centrilobular emphysema is present. No pneumonia or edema. Stable linear scar within the medial right upper lobe. No suspicious pulmonary nodule. Pleura: No pleural effusion or pneumothorax. Heart and mediastinum: The enlarged left axillary lymph node has resolved. No right axillary lymphadenopathy. The 11 mm lower right paratracheal lymph node is stable. No new mediastinal or hilar lymphadenopathy. Heart is normal in size. New right IJ Port-A-Cath with tip terminating in the lower SVC. Normal caliber thoracic aorta. No pericardial effusion. Upper abdomen: The hypodensity in the anterior aspect of the anterior liver has previously been characterized as a hemangioma. Musculoskeletal: No concerning focal osseous lesions. IMPRESSION: 1. The left axillary lymphadenopathy has resolved. 2. Right lower paratracheal lymph node is stable and may not be secondary to metastatic disease. 3. No new intrathoracic abnormality. Dictated by: Dictated on workstation # [id number]
== END ==
LOC: RAD FS 10:02
PROVIDERS: ATTEND Internal Medicine
DX: C50.919 Malignant neoplasm of unspecified site of unspecified female breast (principal); J96.01 Acute respiratory failure with hypoxia
CPT/HCPCS: 71250

== ENCOUNTER 2022-06-04 10:33 | Outpatient (RCR) | payer MEDICAID ==
[2022-06-11] MEDS ORDERED: PRED10TA22 PO (13:53)
[2022-06-11] MEDS ORDERED: ALPR0.254 PO (13:53)
[2022-06-11] MEDS ORDERED: LEVO500T81 PO (13:53)
[2022-06-11] MEDS ORDERED: TIZA4CAP PO (13:54)
== END 2022-06-24 | disposition home or self-care (01) ==
LOC: ONC 10:33
PROVIDERS: ATTEND Internal Medicine
DX: C50.912 Malignant neoplasm of unspecified site of left female breast (principal); J96.01 Acute respiratory failure with hypoxia; M79.7 Fibromyalgia; I10 Essential (primary) hypertension; E11.9 Type 2 diabetes mellitus without complications
CPT/HCPCS: 99213

== ENCOUNTER 2022-06-06 06:24 | Outpatient (CLI) | payer MEDICAID ==
[~2022-06-06] VITALS: Ht 160 cm; Wt 66.7 kg
[2022-06-11] MEDS ORDERED: LEVO500T81 PO (13:53)
[2022-06-11] MEDS ORDERED: PRED10TA22 PO (13:53)
[2022-06-11] MEDS ORDERED: ALPR0.254 PO (13:53)
[2022-06-11] MEDS ORDERED: TIZA4CAP PO (13:54)
== END 2022-06-11 14:47 | disposition home or self-care (01) ==
LOC: PREOP 06:24
PROVIDERS: ATTEND Surgery
DX: Z01.818 Encounter for other preprocedural examination (principal)

== ENCOUNTER 2022-06-28 14:07 | Outpatient (RCR) | payer MEDICAID ==
[~2022-06-28 14:07] MED LIST changes: +ALPR0.254 PO; +LEVO-55 PO; +PRED10TA22 PO; +TIZA4CAP PO
== END 2022-07-25 13:56 | disposition home or self-care (01) ==
LOC: ONC 14:07
PROVIDERS: ATTEND Internal Medicine Hematology & Oncology
DX: C50.912 Malignant neoplasm of unspecified site of left female breast (principal); J96.01 Acute respiratory failure with hypoxia; M79.7 Fibromyalgia; I10 Essential (primary) hypertension; E11.9 Type 2 diabetes mellitus without complications; F41.8 Other specified anxiety disorders
CPT/HCPCS: 99213

== ENCOUNTER → 2022-08-27 | Outpatient (CLI) | payer MEDICAID ==
[~2022-08-27] MED LIST changes: +RT-ALBUTEROL SULF 2.5 MG/3 ML PRE-MIX VIAL INH ONE
== END ==
LOC: RT 14:15
PROVIDERS: ATTEND Internal Medicine Critical Care Medicine
DX: R91.8 Other nonspecific abnormal finding of lung field (principal); R06.02 Shortness of breath

== ENCOUNTER → 2022-09-13 | Outpatient (CLI) | payer MEDICAID ==
[~2022-09-13] MED LIST changes: +CATHETER FLUSH 10 ML SYR IV PRN; +HOLD METFORMIN - RECEIVED CONTRAST 20 ML VIAL IV SCH; +IOHEXOL 350 MG/ML 100 ML (OMNIPAQUE 350) VIAL IV ONE; +NS 100 ML (IVPB) BAG IV ONE; -RT-ALBUTEROL SULF 2.5 MG/3 ML PRE-MIX VIAL INH ONE
--- NOTE | 2022-09-13 11:10 | Diagnostic Imaging Report ---
PROCEDURE: CT chest, abdomen, and pelvis with contrast. TECHNIQUE: Multiple contiguous axial images were obtained through the chest, abdomen, and pelvis after the administration of intravenous contrast. Auto Exposure Controls were utilized during the CT exam to meet ALARA standards for radiation dose reduction. INDICATION: Follow-up breast cancer. Correlation is made with prior CT chest from 05/29/[address] abdomen and pelvis from 03/06/2022. CT CHEST: Right chest wall port has the tip entering the right atrium. No axillary lymphadenopathy is detected. Paratracheal lymph node is stable at 11 mm. No hilar lymphadenopathy is detected. No pericardial or pleural fluid is detected. Parenchymal evaluation does show centrilobular emphysematous changes. Patient has developed some consolidation with air bronchograms in the right middle lobe. The remainder of the lung gale are clear. No mass is identified. IMPRESSION: Stable right paratracheal lymph node since exam from 05/29/2022. Patient has developed right middle lobe consolidation or atelectasis. CT abdomen and pelvis: Previously noted ill-defined low density anterior aspect of the right lobe of the liver is not well-seen on today's study. This area shows more linear low attenuation and less masslike on today's exam. No discrete mass is seen. The gallbladder is unremarkable. There is no biliary duct dilatation. The pancreas and spleen are unremarkable. There is no adrenal mass identified. Kidneys are unremarkable. Aorta is nonaneurysmal. No central retroperitoneal or mesenteric lymphadenopathy is seen. Small and large bowel loops are normal in caliber. There is no obstruction. There is no free fluid or fluid collection. Bladder is unremarkable. Uterus appears to be surgically absent. No pelvic lymphadenopathy is seen. IMPRESSION: Unremarkable CT abdomen and pelvis. No abdominal or pelvic lymphadenopathy or evidence of metastatic disease is detected. Dictated by: Dictated on workstation # [id number]
== END ==
LOC: RAD FS 09:27
PROVIDERS: ATTEND Internal Medicine Hematology & Oncology
DX: C50.912 Malignant neoplasm of unspecified site of left female breast (principal)
CPT/HCPCS: 71260; 74177; Q9967

== ENCOUNTER 2022-09-20 10:24 | Outpatient (RCR) | payer MEDICAID ==
[~2022-09-20 10:24] MED LIST changes: -CATHETER FLUSH 10 ML SYR IV PRN; -HOLD METFORMIN - RECEIVED CONTRAST 20 ML VIAL IV SCH; -IOHEXOL 350 MG/ML 100 ML (OMNIPAQUE 350) VIAL IV ONE; -NS 100 ML (IVPB) BAG IV ONE
[2022-09-20 10:50] LABS: BASOPHILS # (AUTO) 0.1 10^3/uL (0.0-0.1); BASOPHILS % (AUTO) 1 % (0-10); EOSINOPHILS # (AUTO) 0.5 10^3/uL (0.0-0.3); EOSINOPHILS % (AUTO) 6 % (0-10); HEMATOCRIT 47 % (35-52); HEMOGLOBIN 15.6 g/dL (11.5-16.0); LYMPHOCYTES % (AUTO) 31 % (12-44); MEAN CORPUSCULAR HEMOGLOBIN 29 pg (25-34); MEAN CORPUSCULAR HGB CONC 33 g/dL (32-36); MEAN CORPUSCULAR VOLUME 88 fL (80-99); MEAN PLATELET VOLUME 8.9 fL (9.0-12.2); MONOCYTES # (AUTO) 0.7 10^3/uL (0.0-1.0); MONOCYTES % (AUTO) 7 % (0-12); NEUTROPHILS # (AUTO) 5.2 10^3/uL (1.8-7.8); NEUTROPHILS % (AUTO) 55 % (42-75); PLATELET COUNT 233 10^3/uL (130-400); WHITE BLOOD COUNT 9.5 10^3/uL (4.3-11.0)
[2022-09-20 11:09] LABS: BILIRUBIN,TOTAL 0.4 MG/DL (0.1-1.0); CALCIUM 9.2 MG/DL (8.5-10.1); CREATININE SERUM 0.76 MG/DL (0.60-1.30); POTASSIUM 4.2 MMOL/L (3.6-5.0); TOTAL PROTEIN 6.9 GM/DL (6.4-8.2)
== END 2022-09-24 | disposition home or self-care (01) ==
LOC: ONC 10:24
PROVIDERS: ATTEND Internal Medicine Hematology & Oncology
DX: C50.912 Malignant neoplasm of unspecified site of left female breast (principal); J96.01 Acute respiratory failure with hypoxia; M79.7 Fibromyalgia; I10 Essential (primary) hypertension; E11.9 Type 2 diabetes mellitus without complications; F41.8 Other specified anxiety disorders
CPT/HCPCS: 36591; 80053; 85025; 99213

== ENCOUNTER → 2022-10-26 | Outpatient (CLI) | payer MEDICAID ==
[2022-10-26 08:02] LABS: BASOPHILS # (AUTO) 0.1 10^3/uL (0.0-0.1); BASOPHILS % (AUTO) 1 % (0-10); EOSINOPHILS # (AUTO) 1.5 10^3/uL (0.0-0.3); EOSINOPHILS % (AUTO) 12 % (0-10); HEMATOCRIT 46 % (35-52); HEMOGLOBIN 15.5 g/dL (11.5-16.0); LYMPHOCYTES # (AUTO) 3.1 10^3/uL (1.0-4.0); LYMPHOCYTES % (AUTO) 25 % (12-44); MEAN CORPUSCULAR HEMOGLOBIN 29 pg (25-34); MEAN CORPUSCULAR HGB CONC 34 g/dL (32-36); MEAN CORPUSCULAR VOLUME 87 fL (80-99); MEAN PLATELET VOLUME 8.9 fL (9.0-12.2); MONOCYTES # (AUTO) 0.8 10^3/uL (0.0-1.0); MONOCYTES % (AUTO) 7 % (0-12); NEUTROPHILS # (AUTO) 6.9 10^3/uL (1.8-7.8); NEUTROPHILS % (AUTO) 55 % (42-75); PLATELET COUNT 202 10^3/uL (130-400); WHITE BLOOD COUNT 12.5 10^3/uL (4.3-11.0)
[2022-10-26 08:29] LABS: ALBUMIN 3.9 GM/DL (3.2-4.5); BILIRUBIN,TOTAL 0.4 MG/DL (0.1-1.0); CREATININE SERUM 0.58 MG/DL (0.60-1.30); POTASSIUM 4.4 MMOL/L (3.6-5.0); TOTAL PROTEIN 6.8 GM/DL (6.4-8.2)
--- NOTE | 2022-10-26 09:54 | Diagnostic Imaging Report ---
Indication: Productive cough and fatigue. PA and lateral chest obtained at 7:53 a.m. and compared with 05/15/2022. Heart and mediastinal silhouette are normal in appearance. Port-A-Cath is unchanged. There is no pneumothorax or pleural fluid. There is some atelectatic change and/or infiltrate in the right middle lobe, new compared to the prior study. Lung gale are otherwise clear Impression: There is some new infiltrate versus atelectasis in the right middle lobe, best seen on the lateral view, new compared to the prior study. Otherwise stable appearance. Dictated by: Dictated on workstation # [id number]
== END ==
LOC: RAD FS 07:33
PROVIDERS: ATTEND Family Medicine
DX: J98.11 Atelectasis (principal)
CPT/HCPCS: 36415; 71046; 80053; 85025

== ENCOUNTER 2022-11-14 11:41 | Outpatient (RCR) | payer MEDICAID | END 2022-11-24 | disposition home or self-care (01) | LOC: ONC 11:41 | PROVIDERS: ATTEND Radiology Radiation Oncology | DX: C50.912 Malignant neoplasm of unspecified site of left female breast (principal); J96.91 Respiratory failure, unspecified with hypoxia; I10 Essential (primary) hypertension; E11.9 Type 2 diabetes mellitus without complications | CPT/HCPCS: 99205 ==

== ENCOUNTER → 2022-12-11 | Outpatient (CLI) | payer MEDICAID ==
--- NOTE | 2022-12-11 18:17 | Diagnostic Imaging Report ---
INDICATION: Lung consolidation COMPARISON: 10/26/2022 TECHNIQUE: Two radiographs of the chest dated 12/11/2022. FINDINGS: Right-sided Port-A-Cath is again identified and stable. Cardiac silhouette is unchanged. No significant pulmonary vascular congestion. Previously noted pleural fluid versus infiltrate within the right middle lobe appears improved since the prior examination, particularly based upon the lateral radiograph. However, slightly increased interstitial opacities are noted within the more lateral right middle lobe and right lower lobe. The left lung appears clear of focal pulmonary opacity. No significant pleural effusion. No pneumothorax. No acute osseous abnormality. IMPRESSION: Previously noted pleural fluid versus consolidation within the right middle lobe appears improved and essentially resolved since the prior examination. However, new opacities are identified within the inferior right middle lobe and right lower lobe felt to relate to mild atelectasis versus pneumonitis. Stable right-sided Port-A-Cath. Dictated by: Dictated on workstation # [id number]
== END ==
LOC: RAD FS 12:32
PROVIDERS: ATTEND Internal Medicine Hematology & Oncology
DX: C50.112 Malignant neoplasm of central portion of left female breast (principal); C77.3 Secondary and unspecified malignant neoplasm of axilla and upper limb lymph nodes; J18.1 Lobar pneumonia, unspecified organism
CPT/HCPCS: 71046

== ENCOUNTER → 2023-08-06 | Outpatient (CLI) | payer MEDICAID ==
[~2023-08-06] MED LIST changes: -GABA-490 PO; +GABA-491 PO
--- NOTE | 2023-08-06 15:08 | Diagnostic Imaging Report ---
INDICATION: Female central portion left breast cancer. COMPARED with study of 03/06/2022. TECHNIQUE: The patient received 24 mCi technetium 99m MDP intravenously and after 3 hours, whole-body planar imaging performed. FINDINGS: Arthritic pattern of uptake involves the right greater than left knees, chronic. Some mild degenerative changes to the shoulders, elbows and wrists, chronic. Some lower and mid lumbar degenerative pattern of uptake unchanged. Calvarium unremarkable. Sternum and manubrium unremarkable. No suspicious rib finding. No change. IMPRESSION: A benign degenerative distribution of the radiopharmacy is stable with no suspicious bone scan finding. Dictated by: Dictated on workstation # [id number]
== END ==
LOC: CARD 11:18
PROVIDERS: ATTEND Nurse Practitioner Adult Health
DX: C50.112 Malignant neoplasm of central portion of left female breast (principal); C77.3 Secondary and unspecified malignant neoplasm of axilla and upper limb lymph nodes
CPT/HCPCS: 78306

== ENCOUNTER 2023-08-28 08:46 | Outpatient (CLI) | payer MEDICAID ==
[~2023-08-28] VITALS: Ht 157.5 cm; Wt 66.7 kg
[2023-08-28] VITALS (11 sets, daily range): BP systolic 102–146; BP diastolic 62–90
[2023-08-28] MEDS ORDERED: NS IV 1000 ML 1,000 ML IV STA (09:25)
[2023-08-28] MEDS ORDERED: fentaNYL INJECTION 100 MCG/2 ML VIAL IVP ONE (09:30)
[2023-08-28] MEDS ORDERED: MIDAZOLAM INJ 2 MG/2 ML VIAL IVP ONE (09:30)
[2023-08-28 10:31] LABS: HEMATOCRIT 49 % (35-52); HEMOGLOBIN 15.7 g/dL (11.5-16.0); MEAN CORPUSCULAR HEMOGLOBIN 29 pg (25-34); MEAN CORPUSCULAR HGB CONC 32 g/dL (32-36); MEAN CORPUSCULAR VOLUME 90 fL (80-99); MEAN PLATELET VOLUME 9.6 fL (9.0-12.2); PLATELET COUNT 220 10^3/uL (130-400); WHITE BLOOD COUNT 12.1 10^3/uL (4.3-11.0)
[2023-08-28 10:44] LABS: INR 0.9 (0.8-1.4); PROTHROMBIN TIME PATIENT 12.7 SEC (12.2-14.7)
[2023-08-28] MEDS ORDERED: LIDOCAINE 1% INJ 10 ML VIAL ONE (10:45)
[2023-08-28] MEDS ORDERED: LIDOCAINE 1% INJ 10 ML VIAL INJ ONE (11:00)
--- NOTE | 2023-08-28 12:20 | Pre-Op Note & Conscious Sedat ---
Pre-Operative Progress Note Date of Available H&P: Aug 28, 2023 Date H&P Reviewed: Aug 28, 2023 Time H&P Reviewed: 11:00 Pre-Op Diagnosis: liver mass Moderate Sedation PreProcedure Time 11:00 ASA Score 2 Airway Lungs Heart ASA score ASA 1: a normal healthy patient ASA 2: a patient with a mild systemic disease (mid diabetes, controlled hypertension, obesity ASA 3: a patient with a severe systemic disease that limits activity (angina, COPD, prior Myocardial infarction) ASA 4: a patient with an incapacitating disease that is a constant threat to life (CHF, renal failure) ASA 5: a moribund patient not expected to survive 24 hrs. (ruptured aneurysm) ASA 6: a declared brain- patient whose organs are being harvested. For emergent operations, add the letter E after the classification Mallampati Classification Grade 2 Sedation Plan Analgesia, Amnesia, Plan communicated to team members, Discussed options with patient/fam, Discussed risks with patient/fam The patient is an appropriate candidate to undergo the planned procedure, sedation, and anesthesia. The patient immediately re-assessed prior to indication. MUSA WILLARD MD Aug 28, 2023 12:20
--- NOTE | 2023-08-28 12:40 | Diagnostic Imaging Report ---
INDICATION: Liver masses. Patient presents for CT-guided biopsy. Patient brought to the CT suite placed on table in the supine position. Axial imaging through the abdomen was performed to evaluate appropriate entry site. The procedure was performed utilizing conscious sedation with radiology nursing and constant patient monitoring. Patient was given a total of 50 mcg of fentanyl intravenously and 1 mg of Versed intravenously. Total procedure times approximately 11 minutes. A right abdomen was prepped and draped in usual sterile fashion. Small amount of 1% lidocaine was utilized for local anesthesia. Multiple core biopsies were obtained of low attenuation mass right lobe of the liver utilizing 18-gauge Temno needle. A blood patch was injected during needle removal. Hemostasis was obtained using manual compression. Followup imaging shows no complicating features. The patient tolerated the procedure well and left the department in stable condition. IMPRESSION: Successful CT-guided biopsy of the right lobe liver mass utilizing conscious sedation. Pathology results are currently pending. Dictated by: Dictated on workstation # [id number]
== END 2023-08-28 14:15 | disposition home or self-care (01) ==
LOC: RAD 08:46
PROVIDERS: ATTEND Internal Medicine Hematology & Oncology
DX: C50.312 Malignant neoplasm of lower-inner quadrant of left female breast (principal); I74.3 Embolism and thrombosis of arteries of the lower extremities; K76.9 Liver disease, unspecified
CPT/HCPCS: 36415; 77012; 82947; 85027; 85610; 85730; 99156

== ENCOUNTER → 2023-09-18 | Outpatient (CLI) | payer MEDICAID | LOC: CARD 10:02 | PROVIDERS: ATTEND Internal Medicine Hematology & Oncology | DX: I51.7 Cardiomegaly (principal); I34.0 Nonrheumatic mitral (valve) insufficiency; C50.112 Malignant neoplasm of central portion of left female breast; C78.7 Secondary malignant neoplasm of liver and intrahepatic bile duct; Z79.899 Other long term (current) drug therapy | CPT/HCPCS: 93306 ==